=== PATIENT | female | born 1945 | race Caucasian/White ===

== ENCOUNTER 2021-06-14 12:59 | Emergency (ER) | payer MEDICARE, SELFPAY ==
[2021-06-14 13:01] VITALS: BP 154/79; PULSE 60; RESP 18; TEMP 36.6; O2SAT 98; BMI 42.0
--- NOTE | 2021-06-14 13:23 | EX.ED.GENINJ ---
HPI History of Present Illness Chief Complaint: Head Injury Narrative Narrative: 75-year-old female presenting for evaluation after a fall she sustained a week. She states she hit the top of her head on the left and she has some bruising on her face. She states she has been actually improving. Today she went for a regular visit with her doctor and he sent her into the ER because she had an episode of nausea. She denies dizziness, lightheadedness, visual complaints, chest pain, palpitations, shortness of breath, fever, chills. Patient states he had not had any nausea up until today. It is resolved. She states has been vaccinated for COVID-19 and has no symptoms of this. PFSH PFSH Allergy/AdvReac Type Severity Reaction Status Date / Time fexofenadine [From Mar] Allergy Hives Verified 06/14/21 13:05 Social History Smoking Status: Never smoker ROS ROS ED Constitutional Constitutional ED: Denies chills or fever(s) Eyes Eyes: Denies blurry vision or change in vision ENT ENT ED: Denies rhinorrhea or sore throat Cardiovascular Cardiovascular: Denies chest pain or palpitations Respiratory/Chest Respiratory/Chest: Denies cough or dyspnea Gastrointestinal Gastrointestinal: Reports nausea; Denies abdominal pain Genitourinary Genitourinary ED: Denies dysuria or hematuria Musculoskeletal Musculoskeletal: Denies arthralgias or myalgias Integumentary Denies abscess or rash Neurologic Neurologic: Denies headache(s) or weakness EXAM Physical Exam Const Vital Signs: 06/14/21 13:01 Temperature 97.9 F Temperature Source Temporal Pulse Rate 60 Respiratory Rate 18 Blood Pressure 154/79 H Blood Pressure Mean 104 Pulse Ox 98 Oxygen Delivery Method Room Air Positive well nourished General Appearance ED: NAD HEENT HEENT Narrative: Bruising over the left eye and inferior to bilateral eyes. The nasal bone is midline. Nares are patent. No nasal septal hematoma. There is a some conjunctival hemorrhage in the left eye. Eyes PERRL and EOMs intact bilaterally Cardio regular rhythm Rate: regular rate Neuro oriented x3 and CN's II-XII intact bilaterally Sensorium / Orientation: alert Psych mental status grossly normal and thought process normal Skin Skin Narrative: Bruising as described above MDM MDM MDM Narrative Medical decision making narrative: Patient presenting with bruising on her forehead as well as an episode of nausea today. She not had any symptoms after she hit her head up until today. She will experience nausea for short time. She has no focal neurologic deficits on examination her neuro exam is normal. CT of the brain is obtained and shows no acute intracranial process as interpreted by the radiologist and reviewed by myself. Patient counseled on findings. She will be discharged home in stable condition. Impression: 1. Closed head injury Radiography Diagnostic Testing: Clinical Impression(s) from Imaging Studies Brain CT 06/14/21 13:25 IMPRESSION: Chronic involutional changes of the brain. Electronically Signed: Pedro Mazariegos MD at 13:37 EST , Service support , Discharge Plan Triage Chief Complaint: Head Injury ED Provider: Angel King Dx/Rx/DC Orders Instructions: ED Head Injury (Adult) Primary Care Provider: Frank Salinas Referrals: Frank Salinas MD [Primary Care Provider] - Disposition Disposition: Home, Self Care
--- NOTE | 2021-06-14 13:25 | CT_ITS ---
STUDY: CT BRAIN WITHOUT CONTRAST REASON FOR EXAM: Female, 75 years old. Headache RADIATION DOSAGE (If Supplied By Facility): CTDIvol = ( 44.99 ) mGy, DLP = ( 829.85 ) mGycm TECHNIQUE: Transaxial CT imaging of the brain was performed without administration of intravenous contrast material. Individualized dose optimization techniques were used for this CT. COMPARISON: No relevant priors. FINDINGS: Normal soft tissue structures. There is hyperostosis frontalis internus. Normal size ventricles and extra-axial spaces for the patient''s age. Normal white matter tracts of the cerebral hemispheres. There are small punctate calcifications of the basal ganglia which are seen in the aging brain as a normal variant. Normal brainstem. Normal cerebellum. There is no intracranial hemorrhage. There are no findings of an acute ischemic infarction. Normal visualized paranasal sinuses. CT/Brain/Head without Contrast IMPRESSION: Chronic involutional changes of the brain. Electronically Signed: Pedro Mazariegos MD at 13:37 EST , Service support ,
== END 2021-06-14 14:21 | disposition home or self-care (01) ==
PROVIDERS: Emergency Provider Student in an Organized Health Care Education/Training Program; PCP Family Medicine
DX: S00.12XA Contusion of left eyelid and periocular area, initial encounter (principal); S00.83XA Contusion of other part of head, initial encounter; H11.32 Conjunctival hemorrhage, left eye; R11.0 Nausea; W19.XXXA Unspecified fall, initial encounter; Y93.9 Activity, unspecified; Y92.9 Unspecified place or not applicable
CPT/HCPCS: 70450; 99284

== ENCOUNTER 2022-12-10 12:00 | Inpatient (IN) | payer MEDICARE, SELFPAY ==
[2022-12-10] VITALS (7 sets, daily range): BP systolic 102–135; BP diastolic 58–74; PULSE 85–93; RESP 14–20; TEMP 35.9–37.7; O2SAT 93–98; BMI 37.0; BMI 37.3
--- NOTE | 2022-12-10 12:31 | EKG12_ITS ---
Test Reason : WEAKNESS Blood Pressure : / mmHG Vent. Rate : 085 BPM Atrial Rate : 085 BPM P-R Int : 132 ms QRS Dur : 090 ms QT Int : 474 ms P-R-T Axes : 065 053 041 degrees QTc Int : 564 ms Normal sinus rhythm Nonspecific ST abnormality Prolonged QT Abnormal ECG Confirmed by SILVIA TRAN, ALEAH ([id number]), film and video editor JANE BURGESS ([id number]) on 12/13/2022 9:55:48 AM Referred By: DOUG Confirmed By:THAO VEGA MD
--- NOTE | 2022-12-10 12:33 | EX.ED.DYSGE1 ---
HPI History of Present Illness Chief Complaint: Dizziness Detail of Chief Complaint: Red left extremity, subjective fever with chills and orthostatic symptoms Informant: patient Onset/Context/Timing Onset: Yesterday Context: Sudden Onset Timing: Continuous and Waxes and wanes Quality: Detailed HPI narrative Location: Left leg Current Severity: Moderate Maximum Severity: Moderate Worsened by: Infection Relieved by: Nothing Associated Symptoms Associated Symptoms: Nausea and vomiting x1 and orthostatic symptoms Narrative Narrative: Patient is a 77-year-old woman who is on no medication and has no allergies who presents with red left leg that has gotten significantly worse since yesterday with subjective fever and chills. She also reports sweats. She denies headache, visual, ocular auditory symptoms. She denies respiratory or cardiac symptoms other than orthostatic symptoms. When asked to define dizziness she describes orthostatic symptoms. She did not describe vertigo. She does report thirst and dry mouth. She also reported incontinence of urine. She states she has never had that before. Prior similar symptoms: No Recent Illness/Hospitalization: No PFSH PFSH Medical History no medical history no medical history Allergy/AdvReac Type Severity Reaction Status Date / Time fexofenadine [From Mar] Allergy Hives Verified 06/14/21 13:05 Social History (Updated 12/10/22 @ 12:[address] Nestor Vásquez MD) household members: spouse Smoking Status: Never smoker substance use type: does not use ROS ROS ED Constitutional Constitutional ED: Reports chills, fever(s), subjective and sweats; Denies weight loss Eyes Eyes: Denies blurry vision, change in vision or diplopia ENT ENT ED: Reports other Details: Detailed HPI narrative ; Denies ear pain, rhinorrhea or sore throat Cardiovascular Cardiovascular: Denies chest pain, orthopnea, palpitations, paroxysmal nocturnal dyspnea or racing heartbeat Respiratory/Chest Respiratory/Chest: Denies cough, dyspnea, dyspnea on exertion, orthopnea or paroxysmal nocturnal dyspnea Gastrointestinal Gastrointestinal: Reports nausea and vomiting; Denies abdominal pain, diarrhea or melena Genitourinary Genitourinary ED: Reports other Details: Urgency with incontinence ; Denies dysuria, hematuria or urinary frequency Musculoskeletal Musculoskeletal: Denies arthralgias, back pain, myalgias or neck pain Integumentary Reports rash Neurologic Neurologic: Reports weakness; Denies headache(s) or paresthesias Psychiatric Psychiatric: Denies anxiety or depression Endocrine Endocrinology: Denies cold intolerance or heat intolerance Hematologic/Lymphatic Hematologic/Lymphatic: Reports systems reviewed and no addt'l complaints, except as documented EXAM Physical Exam Const Vital Signs: 12/10/22 12:01 12/10/22 12:23 12/10/22 13:24 Temperature 97.8 F Temperature Source Temporal Pulse Rate 93 Respiratory Rate 15 Respiratory Effort Normal Non-Labored Respiratory Pattern Normal Blood Pressure 102/74 Blood Pressure Mean 83 Pulse Ox 97 95 Oxygen Delivery Method Room Air Room Air Positive well nourished, well developed and obese Constitutional Narrative: Patient appears ill but not toxic. General Appearance ED: well developed; Negative for cyanotic, diaphoretic or NAD Nutritional Appearance: obese HEENT Reports dry mucous membranes HEENT Narrative: Head is atraumatic normocephalic. Ears normal. Nares patent. Posterior pharynx is normal. Mouth ED: Yes dry mucous membranes Mouth: dry mucous membranes Eyes PERRL and EOMs intact bilaterally General Eye ED: Negative for pale conjunctiva or scleral icterus Neck no lymphadenopathy, supple and no JVD Chest Wall inspection of chest normal and palpation of chest normal Resp normal respiratory effort and clear to auscultation bilaterally Cardio regular rate, regular rhythm, S1 normal heart sound, S2 normal heart sound and no murmurs GI normal to inspection, nondistended, normoactive bowel sounds, non-tender, non-distended and no masses; Negative for hepatosplenomegaly Back/Spine no CVA tenderness Back/Spine Narrative: Inspection is normal. Extremity Negative for normal to inspection Extremity Narrative: Patient has cellulitis of the left leg. There are varicose veins noted. There is no asymmetry, swelling, leg vein distention, palpable cords tenderness on the distribution deep venous system. Furthermore patient has no history of VTE. Neuro oriented x3, CN's II-XII intact bilaterally and no sensory deficits noted Sensorium / Orientation: alert Motor Exam: strength 5/5 throughout Psych mental status grossly normal Skin Skin Narrative: Cellulitis of the entire left leg Sepsis Attestation Possible Source of Sepsis: Skin/soft tissue Sepsis Organ Dysfunction Criteria Present: Lactic Acid > 2 mmol/L MDM MDM MDM Narrative Medical decision making narrative: Patient clinically is dehydrated. 1 L normal saline was ordered. Patient has cellulitis of the leg. Sepsis work-up was initiated. Unasyn was ordered. Patient was informed that she will need admission to the hospital. Comprehensive metabolic panel was obtained to assess for endorgan dysfunction. CBC to assess white count differential. Lactate to assess for poor perfusion. Lab Data Attestation: I reviewed the patient's lab results. Lab results narrative: Count is with no shift. Coags are essential unremarkable. Comprehensive metabolic panel was elevated BUN/creatinine at 22 and 1.72. Last creatinine was 1. Glucose elevated 153 with a normal CO2 and anion gap. Lactate is elevated 2.7. Labs: Laboratory Results - last 24 hr 12/10/22 12/10/22 12/10/22 13:00 13:00 13:00 WBC 36.8 H* RBC 5.87 H Hgb 15.8 H Hct 50.7 H MCV 86.4 MCH 26.9 L MCHC 31.2 L RDW Std Deviation 43.2 RDW Coeff of Joya 13.5 Plt Count 147 L MPV 9.4 Immature Gran % (Auto) 1.400 H Neut % (Auto) 91.8 H Lymph % (Auto) 3.0 L [place] % (Auto) 3.3 Eos % (Auto) 0.1 Baso % (Auto) 0.4 Absolute Neuts (auto) 33.8 H Absolute Lymphs (auto) 1.10 Nucleated RBC % 0 Differential Comment SCANNED Diff Path Review October foll PT 15.7 H INR 1.3 APTT 32.8 Sodium 137 Potassium 3.5 Chloride 102 Carbon Dioxide 27.0 Anion Gap 8 BUN 22 H Creatinine 1.72 H Estim Creat Clear Calc 25.43 Est GFR (MDRD) Af Amer 37 L Est GFR (MDRD) Non-Af 31 L BUN/Creatinine Ratio 12.8 Glucose 153 H Lactic Acid Calcium 9.1 Total Bilirubin 0.70 AST 20 ALT 19 Alkaline Phosphatase 79 Total Protein 8.0 Albumin 3.2 Globulin 4.8 H Albumin/Globulin Ratio 0.7 L Urine Color Urine Clarity Urine pH Ur Specific [place] Urine Protein Urine Glucose (UA) Urine Ketones Urine Occult Blood Urine Nitrite Urine Bilirubin Urine Urobilinogen Ur Leukocyte Esterase Urine RBC Urine WBC Ur Squamous Epith Cells Urine Bacteria Hyaline Casts Urine Mucus 12/10/22 12/10/22 13:00 13:30 WBC RBC Hgb Hct MCV MCH MCHC RDW Std Deviation RDW Coeff of Joya Plt Count MPV Immature Gran % (Auto) Neut % (Auto) Lymph % (Auto) [place] % (Auto) Eos % (Auto) Baso % (Auto) Absolute Neuts (auto) Absolute Lymphs (auto) Nucleated RBC % Differential Comment Diff Path Review PT INR APTT Sodium Potassium Chloride Carbon Dioxide Anion Gap BUN Creatinine Estim Creat Clear Calc Est GFR (MDRD) Af Amer Est GFR (MDRD) Non-Af BUN/Creatinine Ratio Glucose Lactic Acid 2.7 H* Calcium Total Bilirubin AST ALT Alkaline Phosphatase Total Protein Albumin Globulin Albumin/Globulin Ratio Urine Color Yellow Urine Clarity Cloudy Urine pH 5.0 Ur Specific [place] 1.025 Urine Protein 100 H Urine Glucose (UA) Normal Urine Ketones 5 H Urine Occult Blood 50 H Urine Nitrite Negative Urine Bilirubin 1 H Urine Urobilinogen 1 H Ur Leukocyte Esterase 500 H Urine RBC 0-5 SEEN Urine WBC 10-25 SEEN Ur Squamous Epith Cells 10-25 SEEN Urine Bacteria 3+ Hyaline Casts 0-5 SEEN Urine Mucus 2+ Critical Care Time Critical Care Time: Yes Critical care time (excluding procedures): 30-74 minutes (22), Including time spent: (History, physical, documentation, independent review of laboratory results initiation of therapy), Discussing w/Patient &/or Family/Bolt Man, Discussing w/Consultants and Arranging Admission or Transfer Discharge Plan Triage Chief Complaint: Dizziness ED Provider: Nestor Vásquez Dx/Rx/DC Orders Clinical Impression: Sepsis, Acidosis, lactic, Cellulitis of leg, CEASAR (acute kidney injury) Primary Care Provider: Frank Salinas Referrals: Frank Salinas MD [Primary Care Provider] - Disposition Disposition: Acute Care Hospital [facility]
[2022-12-10 13:16] LABS: Absolute Neutrophil Count 33.8 X10^3/uL (2.0-7.7); Basophil# 0.14 X10^3/uL; Basophil% 0.4 % (0-1); Eosinophil# 0.05 X10^3/uL; Eosinophils% 0.1 % (0-5); Hematocrit 50.7 % (37-47); Hemoglobin 15.8 g/dL (12.0-15.0); Mean Corp Hgb Conc 31.2 g/dL (32-36); Mean Corpuscular Hgb 26.9 pg (27.0-32.0); Mean Corpuscular Volume 86.4 fL (81-99); Mean Platelet Vol. 9.4 fl (6.2-12.0); Monocyte# 1.21 X10^3/uL; Monocyte% 3.3 % (0-10); NRBC Flagged by Analyzer 0 % (0-5); Neutrophil # 33.76 X10^3/uL (2.7-7.7); Neutrophil % 91.8 % (47-70); POSITIVE COUNT YES; POSITIVE DIFFERENTIAL YES; Platelet Count 147 K/mm3 (150-450); RBC Distribution Width CV 13.5 % (11.6-14.6); RBC Distribution Width SD 43.2 fl (35.1-43.9); Red Blood Count 5.87 M/mm3 (4.2-5.4)
[2022-12-10 13:19] LABS: Differential Indicated SCAN CRITERIA MET; White Blood Count 36.8 K/mm3 (4.4-11.0)
[2022-12-10 13:22] LABS: International Normalized Ratio 1.3; Partial Thromboplast Time 32.8 Seconds (24.1-36.2); Prothrombin Time (Protime)PT. 15.7 SECONDS (11.7-14.9)
[2022-12-10] MEDS: 0.9% Normal Saline 1,000 ML 999 ML IV (13:26)
[2022-12-10 13:34] LABS: ALB/GLOB Ratio 0.7 RATIO (0.9-2.4); AST(SGOT) 20 U/L (15-37); Alanine Aminotransfer ALT/SGPT 19 U/L (13-56); Albumin, Serum 3.2 g/dL (3.2-5.0); Alkaline Phosphatase 79 U/L (45-117); Anion Gap 8 (5-15); BUN 22 mg/dL (7-18); BUN/Creat Ratio 12.8 RATIO (10-20); Calcium,Total 9.1 mg/dL (8.5-10.1); Chloride 102 mmol/L (98-107); Creatinine, Serum 1.72 mg/dL (0.55-1.02); EST Glomerular Filtration Rate 31 mL/min (>60); Est Glom Filt Rate - Afr Amer 37 mL/min (>60); Estimated Creatinine Clearance 25.43 ml/min; Globulin 4.8 g/dL (2.2-4.2); Glucose 153 mg/dL (74-106); Potassium 3.5 mmol/L (3.5-5.1); Sodium Level 137 mmol/L (136-145)
[2022-12-10 13:38] LABS: Differential Comment SCANNED
[2022-12-10 13:44] LABS: Lactic Acid 2.7 mmol/L (0.4-1.9)
[2022-12-10 13:47] LABS: Color, Urine Yellow (Yellow); Glucose, Dipstick Normal (Normal); Ketone-Dipstick 5 mg/dl (Negative); Leukocyte Esterase-Dipstick 500 /ul (Negative); Nitrite-Dipstick Negative (Negative); Occult Blood-Urine 50 /ul (Negative); Protein-Dipstick 100 mg/dl (Negative); Specific Gravity, Urine 1.025 (1.002-1.030); Urine Bilirubin Dipstick 1 mg/dL (Negative); Urine Clarity Cloudy (Clear); Urine Urobilinogen 1 mg/dl (Normal)
[2022-12-10 13:54] LABS: Bacteria 3+ /hpf (None Seen); Hyaline Cast 0-5 SEEN /lpf (0-5); Mucous, Urine 2+ /hpf (<or=2+); Red Blood Cells-Urine 0-5 SEEN /hpf (0-5); Squamous Epithelial Cells - UA 10-25 SEEN /hpf (5-10); White Blood Cells 10-25 SEEN /hpf (0-5)
[2022-12-10 17:09] LABS: Reflex Lactate? Y
[2022-12-10] MEDS: KCL 20MEQ in 0.9% NS 20 MEQ/1,000 ML IV.SOLN. 100 MEQ IV (17:36)
--- NOTE | 2022-12-10 17:45 | PCM.RX.CS ---
Consult Type of Consult: New start Suspected Infection: Skin/Soft tissue - Cellulitis Labs: Sodium 137 mmol/L (136-145) 12/10/22 13:00 Potassium 3.5 mmol/L (3.5-5.1) 12/10/22 13:00 Chloride 102 mmol/L (98-107) 12/10/22 13:00 Carbon Dioxide 27.0 mmol/L (21.0-32.0) 12/10/22 13:00 Anion Gap 8 (5-15) 12/10/22 13:00 BUN 22 mg/dL (7-18) H 12/10/22 13:00 Creatinine 1.72 mg/dL (0.55-1.02) H 12/10/22 13:00 Est GFR (MDRD) Af Amer 37 mL/min (>60) L 12/10/22 13:00 Est GFR (MDRD) Non-Af 31 mL/min (>60) L 12/10/22 13:00 BUN/Creatinine Ratio 12.8 RATIO (10-20) 12/10/22 13:00 Glucose 153 mg/dL (74-106) H 12/10/22 13:00 Goal Trough: 10-15 mcg/mL Pharmacy Plan for Drug Dosing: NEW START IV VANCOMYCIN Consulting Physician: Dr. Oleary Indication: Cellulitis Goal Trough: 10-15 SrCr: 1.72 mg/dL CrCl: 33.39 mL/min (AdjBW 74.8kg) Comments: 1500mg x1 dose given 172912/10/22 Vancomycin Dose: 750mg Q24H to start at 1730 12/11/22 Pending Level: Vancomycin trough @ 1700 12/13/22 Pharmacy Service will continue to monitor and adjust dosing as required. Labs to be done on [date and time ordered]: Vancomycin trough @ 1700 12/13/22
--- NOTE | 2022-12-10 18:36 | PCM.HP.STD ---
[facility] - General General Date of Admission: 12/10/22 Date of Service: 12/10/22 Chief Complaint: Swelling redness and pain involving the left lower extremity HPI Narrative TASHA MCNALLY, is a 77 F who presents swelling, redness and pain involving the left lower extremity from the foot up to just below the knee. Prior to that developed some fevers, chills, malaise and anorexia. Had a few shakes/rigors as well. Patient cannot recall any trauma to the extremity. [facility] Medical History no medical history Home Medications NK 12/10/22 [History Last Taken Unknown] Allergy/AdvReac Type Severity Reaction Status Date / Time fexofenadine [From Mar] Allergy Hives Verified 06/14/21 13:05 Social History household members: spouse Smoking Status: Never smoker substance use type: does not use ROS ROS Narrative Denies any chest pain or shortness of breath. All other systems reviewed and essentially negative as above in the body of the history. Vital Signs Vital Signs Vital Signs: 12/10/22 12:01 12/10/22 12:23 12/10/22 13:24 Temperature 36.6 C Temperature Source Temporal Pulse Rate 93 Respiratory Rate 15 Respiratory Effort Normal Non-Labored Respiratory Pattern Normal Blood Pressure 102/74 Blood Pressure Mean 83 Blood Pressure Source Blood Pressure Position Blood Pressure Location Pulse Ox 97 95 Oxygen Delivery Method Room Air Room Air 12/10/22 14:45 12/10/22 15:40 Temperature 35.9 C L 36.6 C Temperature Source Temporal Oral Pulse Rate 85 89 Respiratory Rate 14 16 Respiratory Effort Respiratory Pattern Blood Pressure 116/72 117/60 Blood Pressure Mean 86 79 Blood Pressure Source Monitor Blood Pressure Position Semi-Fowlers Blood Pressure Location Right Arm Pulse Ox 93 98 Oxygen Delivery Method Room Air Room Air Weight Weight: 101.6 kg Body Mass Index (BMI) 37.3 Physical Exam Narrative General exam. Elderly man, morbidly obese, mildly ill-appearing, anxious appearing HEENT. Oral mucosa moist, no pallor jaundice or cyanosis Neck. Neck is supple Heart. First and second sounds are normal was Lungs. Clear to auscultation. Abdomen. 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 Conscious alert and oriented x3. Cranial nerves II to XII grossly intact. Extremities. Circumferential redness, swelling tenderness involving the left lower extremity from the ankle all the way up to the upper dior Results Medical Records Data Attestation: I reviewed the patient's medical records Lab / Micro Data Attestation: I reviewed the patient's lab results. Result Diagrams: 12/10/22 13:00 12/10/22 13:00 Labs: Laboratory Results - last 24 hr 12/10/22 13:00: WBC 36.8 H*, RBC 5.87 H, Hgb 15.8 H, Hct 50.7 H, MCV 86.4, MCH 26.9 L, MCHC 31.2 L, RDW Std Deviation 43.2, RDW Coeff of Joya 13.5, Plt Count 147 L, MPV 9.4, Immature Gran % (Auto) 1.400 H, Neut % (Auto) 91.8 H, Lymph % (Auto) 3.0 L, [place] % (Auto) 3.3, Eos % (Auto) 0.1, Baso % (Auto) 0.4, Absolute Neuts (auto) 33.8 H, Absolute Lymphs (auto) 1.10, Nucleated RBC % 0, Differential Comment SCANNED, Diff Path Review October12/10/22 13:00: PT 15.7 H, INR 1.3, APTT 32.8 12/10/22 13:00: Sodium 137, Potassium 3.5, Chloride 102, Carbon Dioxide 27.0, Anion Gap 8, BUN 22 H, Creatinine 1.72 H, Estim Creat Clear Calc 25.43, Est GFR (MDRD) Af Amer 37 L, Est GFR (MDRD) Non-Af 31 L, BUN/Creatinine Ratio 12.8, Glucose 153 H, Calcium 9.1, Total Bilirubin 0.70, AST 20, ALT 19, Alkaline Phosphatase 79, Total Protein 8.0, Albumin 3.2, Globulin 4.8 H, Albumin/Globulin Ratio 0.7 L 12/10/22 13:00: Lactic Acid 2.7 H* 12/10/22 13:30: Urine Color Yellow, Urine Clarity Cloudy, Urine pH 5.0, Ur Specific [place] 1.025, Urine Protein 100 H, Urine Glucose (UA) Normal, Urine Ketones 5 H, Urine Occult Blood 50 H, Urine Nitrite Negative, Urine Bilirubin 1 H, Urine Urobilinogen 1 H, Ur Leukocyte Esterase 500 H, Urine RBC 0-5 SEEN, Urine WBC 10-25 SEEN, Ur Squamous Epith Cells 10-25 SEEN, Urine Bacteria 3+, Hyaline Casts 0-5 SEEN, Urine Mucus 2+ ABG Data Attestation: I personally reviewed and interpreted this ABG as follows: Assessment & Plan Assessment/Plan (1) Cellulitis of leg: PLAN: Plan 1. Severe sepsis. Secondary to cellulitis involving the left lower extremity. Patient received IV fluids and is on IV antibiotics. Keep on telemetry. 2. Cellulitis versus erysipelas involving the left lower extremity. Will be given IV vancomycin 1.5 g every 12 hours and Unasyn 3 g every 6 hours. Elevate left lower extremity on 3 pillows at all times when in bed. 3. Morbid obesity. Life modifications as able. 4. Acute kidney injury. Secondary to sepsis. Treat underlying sepsis. IV fluids. Charges/Coding Visit Charges Inpatient E&M: 95177 Init Hosp L3
[2022-12-10 18:43] LABS: Lactic Acid 1.9 mmol/L (0.4-1.9)
[2022-12-10] MEDS: Acetaminophen 325 MG Tablet 650 MG PO (21:30)
[2022-12-11 03:40] VITALS: BP 114/61; PULSE 82; RESP 16; TEMP 36.6; O2SAT 95
[2022-12-11 06:14] LABS: Absolute Lymphocyte Count 1.42 X10^3/uL (0.83-4.51); Absolute Neutrophil Count 24.9 X10^3/uL (2.0-7.7); Basophil# 0.05 X10^3/uL; Basophil% 0.2 % (0-1); Eosinophil# 0.15 X10^3/uL; Eosinophils% 0.5 % (0-5); Hematocrit 41.8 % (37-47); Hemoglobin 13.3 g/dL (12.0-15.0); Lymphocyte # 1.42 X10^3/ul (0.83-4.51); Mean Corp Hgb Conc 31.8 g/dL (32-36); Mean Corpuscular Hgb 27.6 pg (27.0-32.0); Mean Corpuscular Volume 86.7 fL (81-99); Mean Platelet Vol. 10.2 fl (6.2-12.0); Monocyte# 1.46 X10^3/uL; Monocyte% 5.2 % (0-10); NRBC Flagged by Analyzer 0 % (0-5); Neutrophil # 24.88 X10^3/uL (2.7-7.7); Neutrophil % 88.5 % (47-70); POSITIVE COUNT YES; POSITIVE DIFFERENTIAL YES; Platelet Count 95 K/mm3 (150-450); RBC Distribution Width CV 13.8 % (11.6-14.6); RBC Distribution Width SD 43.8 fl (35.1-43.9); Red Blood Count 4.82 M/mm3 (4.2-5.4); White Blood Count 28.1 K/mm3 (4.4-11.0)
[2022-12-11] MEDS: Acetaminophen 325 MG Tablet 650 MG PO ×3 (06:22→21:08)
[2022-12-11 06:23] LABS: Differential Indicated SCAN CRITERIA MET
[2022-12-11 06:41] LABS: Platelet Estimate MOD DEC (ADEQ)
[2022-12-11 06:56] LABS: ALB/GLOB Ratio 0.6 RATIO (0.9-2.4); AST(SGOT) 18 U/L (15-37); Alanine Aminotransfer ALT/SGPT 13 U/L (13-56); Albumin, Serum 2.3 g/dL (3.2-5.0); Alkaline Phosphatase 84 U/L (45-117); Anion Gap 4 (5-15); BUN 23 mg/dL (7-18); BUN/Creat Ratio 18.5 RATIO (10-20); Calcium,Total 7.8 mg/dL (8.5-10.1); Chloride 109 mmol/L (98-107); Creatinine, Serum 1.24 mg/dL (0.55-1.02); EST Glomerular Filtration Rate 45 mL/min (>60); Est Glom Filt Rate - Afr Amer 54 mL/min (>60); Estimated Creatinine Clearance 35.27 ml/min; Globulin 3.6 g/dL (2.2-4.2); Glucose 122 mg/dL (74-106); Potassium 3.8 mmol/L (3.5-5.1); Protein, Total 5.9 g/dL (6.4-8.2); Sodium Level 140 mmol/L (136-145)
--- NOTE | 2022-12-11 07:48 | PN.HOSP_ITS ---
Reason for Visit Reason for Visit: Diagnoses Cellulitis of unspecified part of limb (12/10/22) Subjective Subjective leg feeling better. started with malaise. Objective Data Objective Data Vital Signs: Vital Signs Temp Pulse Resp BP Pulse Ox O2 Del Method O2 Flow Rate 36.6 C 82 16 114/61 95 Nasal Cannula 2 12/11/22 03:40 12/11/22 03:40 12/11/22 03:40 12/11/22 03:40 12/11/22 03:40 12/11/22 03:40 12/11/22 03:40 Oxygen Flow Rate (L/min) 2 Oxygen Delivery Method Nasal Cannula Weight: 101.6 kg Body Mass Index (BMI) 37.3 Intake & Output: Intake and Output for Last 24 Hours 12/09/22 12/10/22 12/11/22 23:59 23:59 23:59 Intake Total 1642 / 1642 224 / 224 Balance 1642 / 1642 224 / 224 Lab / Micro Data Result Diagrams: 12/11/22 05:45 12/11/22 05:45 Labs: Laboratory Results - last 24 hr 12/10/22 13:00: WBC 36.8 H*, RBC 5.87 H, Hgb 15.8 H, Hct 50.7 H, MCV 86.4, MCH 26.9 L, MCHC 31.2 L, RDW Std Deviation 43.2, RDW Coeff of Joya 13.5, Plt Count 147 L, MPV 9.4, Immature Gran % (Auto) 1.400 H, Neut % (Auto) 91.8 H, Lymph % (Auto) 3.0 L, [place] % (Auto) 3.3, Eos % (Auto) 0.1, Baso % (Auto) 0.4, Absolute Neuts (auto) 33.8 H, Absolute Lymphs (auto) 1.10, Nucleated RBC % 0, Differential Comment SCANNED, Diff Path Review October12/10/22 13:00: PT 15.7 H, INR 1.3, APTT 32.8 12/10/22 13:00: Sodium 137, Potassium 3.5, Chloride 102, Carbon Dioxide 27.0, Anion Gap 8, BUN 22 H, Creatinine 1.72 H, Estim Creat Clear Calc 25.43, Est GFR (MDRD) Af Amer 37 L, Est GFR (MDRD) Non-Af 31 L, BUN/Creatinine Ratio 12.8, Glucose 153 H, Calcium 9.1, Total Bilirubin 0.70, AST 20, ALT 19, Alkaline Phosphatase 79, Total Protein 8.0, Albumin 3.2, Globulin 4.8 H, Albumin/Globulin Ratio 0.7 L 12/10/22 13:00: Lactic Acid 2.7 H* 12/10/22 13:30: Urine Color Yellow, Urine Clarity Cloudy, Urine pH 5.0, Ur Specific [place] 1.025, Urine Protein 100 H, Urine Glucose (UA) Normal, Urine Ketones 5 H, Urine Occult Blood 50 H, Urine Nitrite Negative, Urine Bilirubin 1 H, Urine Urobilinogen 1 H, Ur Leukocyte Esterase 500 H, Urine RBC 0-5 SEEN, Urine WBC 10-25 SEEN, Ur Squamous Epith Cells 10-25 SEEN, Urine Bacteria 3+, Hyaline Casts 0-5 SEEN, Urine Mucus 2+ 12/10/22 18:10: Lactic Acid 1.9 12/11/22 05:45: WBC 28.1 H, RBC 4.82, Hgb 13.3, Hct 41.8, MCV 86.7, MCH 27.6, MCHC 31.8 L, RDW Std Deviation 43.8, RDW Coeff of Joya 13.8, Plt Count 95 L, MPV 10.2, Immature Gran % (Auto) 0.600, Neut % (Auto) 88.5 H, Lymph % (Auto) 5.0 L, [place] % (Auto) 5.2, Eos % (Auto) 0.5, Baso % (Auto) 0.2, Absolute Neuts (auto) 24.9 H, Absolute Lymphs (auto) 1.42, Nucleated RBC % 0, Platelet Estimate MOD 12/11/22 05:45: Sodium 140, Potassium 3.8, Chloride 109 H, Carbon Dioxide 27.0, Anion Gap 4 L, BUN 23 H, Creatinine 1.24 H, Estim Creat Clear Calc 35.27, Est GFR (MDRD) Af Amer 54 L, Est GFR (MDRD) Non-Af 45 L, BUN/Creatinine Ratio 18.5, Glucose 122 H, Calcium 7.8 L, Total Bilirubin 0.60, AST 18, ALT 13, Alkaline Phosphatase 84, Total Protein 5.9 L, Albumin 2.3 L, Globulin 3.6, Albumin/Globulin Ratio 0.6 L Physical Exam Const alert and no apparent distress Skin Skin Narrative: erythema on LLE, slightly withdrawn from demarcation. Assessment & Plan Assessment/Plan (1) Sepsis: PLAN: Resolved Admission: SIRS 2/4 (WBC 36.8, HR 93) Lactic acid 2.7 on admission. Since resolved. 2/2 cellulitis received 1 liter NS (2) Cellulitis of leg: PLAN: on Unasyn and vanc Elevate left lower extremity on 3 pillows at all times when in bed. Continue IV abx for another 24hours. (3) CEASAR (acute kidney injury): PLAN: Secondary to sepsis. Treat underlying sepsis. IV fluids. Improved PLAN: Plan Chronic conditions: * Morbid obesity. Life modifications as able. BMI 37.3 kg/m? VTE prophylaxis: LMWH Charges/Coding Visit Charges Inpatient E&M: 46012 Subs Hosp L1
[2022-12-11] MEDS: KCL 20MEQ in 0.9% NS 20 MEQ/1,000 ML IV.SOLN. 100 MEQ IV ×3 (07:54→23:47)
[2022-12-11 07:59] VITALS: BP 124/65; PULSE 77; RESP 16; TEMP 36.6; O2SAT 95
--- NOTE | 2022-12-11 10:09 | PCM.RX.CS ---
Consult Pharmacy has been consulted to manage selected antiobiotic: Vancomycin Type of Consult: Follow-up Suspected Infection: Skin/Soft tissue Labs: Sodium 140 mmol/L (136-145) 12/11/22 05:45 Potassium 3.8 mmol/L (3.5-5.1) 12/11/22 05:45 Chloride 109 mmol/L (98-107) H 12/11/22 05:45 Carbon Dioxide 27.0 mmol/L (21.0-32.0) 12/11/22 05:45 Anion Gap 4 (5-15) L 12/11/22 05:45 BUN 23 mg/dL (7-18) H 12/11/22 05:45 Creatinine 1.24 mg/dL (0.55-1.02) H 12/11/22 05:45 Est GFR (MDRD) Af Amer 54 mL/min (>60) L 12/11/22 05:45 Est GFR (MDRD) Non-Af 45 mL/min (>60) L 12/11/22 05:45 BUN/Creatinine Ratio 18.5 RATIO (10-20) 12/11/22 05:45 Glucose 122 mg/dL (74-106) H 12/11/22 05:45 Goal Trough: 10-15 mcg/mL Pharmacy Plan for Drug Dosing: Current Vancomycin Dose: 750MG Q24H Number of Doses Received: 1500MG LOADING DOSE X1 Current Renal Function: SCR 1.24 MG/DL, CRCL 46.3 ML/MIN (USING ADJ BW) Renal Function Trend: IMPROVED Lab/Micro: BLOOD AND URINE CX PENDING Any Change in Vanc Plan: YES, CRCL IMPROVED TO 46.3 ML/MIN, CHANGED DOSE TO 1500MG Q24H PER POLICY. TROUGH CHANGED TO PRIOR TO 3RD DOSE. Pending Level: 12/12/22 @ 1700 Pharmacy Service will continue to monitor and adjust dosing as required.
--- NOTE | 2022-12-11 11:45 | CASEMGMT ---
RN CM Face to Face with patient for initial transition planning/care coordination assessment. RN CM introduced self and role at [facility]. Patient sitting in chair, alert and oriented. Patient willing to participate in assessment and is able to answer all questions appropriately. Care providers, pharmacy, and demographics verified. Patient wishes to discharge home, denies need for home health at this time. Patient states she has no further needs or concerns at this time. CM to follow for discharge planning needs that may arise. PCP: Rita Specialists: none Preferred Pharmacy: [facility] Insurance: [facility] Prescription Benefit: yes Living Will/HPOA: yes, Mario Roberson LNOK: Living Arrangements: Patient lives with and cares for 2 granddaughters 6&7yos in a 2 story home. Patient states she is independent and able to ambulate stairs. Transportation: self, DME/HHC: Patient has built in shower chair and rollator. No previous HHC or SNF. Disposition Plan: Patient to discharge home with family support and follow-up plans in place. Taina HELMS, RN, CM
[2022-12-11 12:32] LABS: Pathologist Review Reviewed
[2022-12-11 14:00] VITALS: BP 146/79; PULSE 76; RESP 16; TEMP 36.4; O2SAT 95; O2SAT 96
--- NOTE | 2022-12-11 16:07 | CHAPLAIN ---
Type of Pastoral Visit _x_ Initial Visit ___ Follow-up Visit ___ On-call Visit ___ General Patient Visit ___ Spiritual Assessment ___ Family Conference ___ Bereavement ___ Rapid Response ___ Code Blue ___ Other (describe below) Pastoral Care Referral From _x__ Patient ___ Family ___ Nurse ___ Physician ___ Communications Equipment Supervisor ___ Unified Communications Engineer ___ Other (describe below) Sacrament/Intervention _x__ Active listening ___ Anointing ___ Buddhism ___ Bereavement ___ Communion ___ Geeta exploration ___ _x__ Life review _x__ Prayer ___ Reconciliation ___ Sacrament of Sick ___ Supportive presence ___ Wedding ___ Other (describe below) Pastoral Comments patient is welcoming; pt is using humor to get through her discomfort; pt is talkative about family and how she was encouraged to come to ED; pt is member of a local bahai and has support; pt welcomes presence and prayer
[2022-12-11 20:09] VITALS: O2SAT 97
[2022-12-11 20:15] VITALS: BP 145/78; PULSE 88; RESP 16; TEMP 37.1; O2SAT 94
[2022-12-12] VITALS (8 sets, daily range): BP systolic 138–167; BP diastolic 67–89; PULSE 76–83; RESP 16–18; TEMP 36.6–37; O2SAT 93–96
[2022-12-12] MEDS: 0.9% Saline Lock 10 ML Syringe IV ×3 (00:58→22:58)
[2022-12-12 05:39] LABS: Absolute Lymphocyte Count 1.33 X10^3/uL (0.83-4.51); Basophil# 0.04 X10^3/uL; Basophil% 0.2 % (0-1); Eosinophil# 0.08 X10^3/uL; Eosinophils% 0.4 % (0-5); Hematocrit 41.1 % (37-47); Hemoglobin 13.2 g/dL (12.0-15.0); Lymphocyte # 1.33 X10^3/ul (0.83-4.51); Lymphocyte % 5.9 % (19-41); Mean Corp Hgb Conc 32.1 g/dL (32-36); Mean Corpuscular Hgb 27.8 pg (27.0-32.0); Mean Corpuscular Volume 86.5 fL (81-99); Mean Platelet Vol. 10.9 fl (6.2-12.0); Monocyte# 0.99 X10^3/uL; Monocyte% 4.4 % (0-10); NRBC Flagged by Analyzer 0 % (0-5); Neutrophil # 20.04 X10^3/uL (2.7-7.7); Neutrophil % 88.3 % (47-70); POSITIVE COUNT YES; POSITIVE DIFFERENTIAL YES; Platelet Count 91 K/mm3 (150-450); RBC Distribution Width CV 13.7 % (11.6-14.6); RBC Distribution Width SD 43.8 fl (35.1-43.9); Red Blood Count 4.75 M/mm3 (4.2-5.4); White Blood Count 22.7 K/mm3 (4.4-11.0)
[2022-12-12] MEDS: Enoxaparin 40 MG/0.4 ML Syringe SC (06:04)
[2022-12-12 06:13] LABS: Anion Gap 5 (5-15); BUN 16 mg/dL (7-18); BUN/Creat Ratio 16.6 RATIO (10-20); Calcium,Total 8.1 mg/dL (8.5-10.1); Chloride 111 mmol/L (98-107); Creatinine, Serum 0.96 mg/dL (0.55-1.02); EST Glomerular Filtration Rate 60 mL/min (>60); Est Glom Filt Rate - Afr Amer 73 mL/min (>60); Estimated Creatinine Clearance 45.56 ml/min; Glucose 119 mg/dL (74-106); Potassium 3.7 mmol/L (3.5-5.1); Sodium Level 140 mmol/L (136-145)
[2022-12-12 06:18] LABS: Differential Indicated SCAN CRITERIA MET
[2022-12-12 06:38] LABS: Differential Comment SCANNED; Platelet Estimate MOD DEC (ADEQ)
--- NOTE | 2022-12-12 07:38 | PCM.PN.HOSP ---
Reason for Visit Reason for Visit: Diagnoses Sepsis, unspecified organism (12/10/22) Cellulitis of unspecified part of limb (12/10/22) Acute kidney failure, unspecified (12/10/22) Subjective Subjective Still with LLE redness--no change from yesterday. Objective Data Objective Data Vital Signs: Vital Signs Temp Pulse Resp BP Pulse Ox O2 Del Method O2 Flow Rate 37.0 C 82 16 153/67 H 93 Room Air 2 12/12/22 03:31 12/12/22 03:31 12/12/22 03:31 12/12/22 06:12 12/12/22 03:39 12/12/22 03:39 12/11/22 10:00 Oxygen Flow Rate (L/min) 2 Oxygen Delivery Method Room Air Weight: 101.6 kg Body Mass Index (BMI) 37.3 Intake & Output: Intake and Output for Last 24 Hours 12/10/22 12/11/22 12/12/22 23:59 23:59 23:59 Intake Total 1642 / 1642 4278 / 4278 284 / 284 Balance 1642 / 1642 4278 / 4278 284 / 284 Lab / Micro Data Result Diagrams: 12/12/22 05:08 12/12/22 05:08 Labs: Laboratory Results - last 24 hr 12/10/22 13:00: Diff Path Review Reviewed 12/12/22 05:08: WBC 22.7 H, RBC 4.75, Hgb 13.2, Hct 41.1, MCV 86.5, MCH 27.8, MCHC 32.1, RDW Std Deviation 43.8, RDW Coeff of Joya 13.7, Plt Count 91 L, MPV 10.9, Immature Gran % (Auto) 0.800, Neut % (Auto) 88.3 H, Lymph % (Auto) 5.9 L, [place] % (Auto) 4.4, Eos % (Auto) 0.4, Baso % (Auto) 0.2, Absolute Neuts (auto) 20.0 H, Absolute Lymphs (auto) 1.33, Nucleated RBC % 0, Differential Comment SCANNED, Platelet Estimate MOD DEC 12/12/22 05:08: Sodium 140, Potassium 3.7, Chloride 111 H, Carbon Dioxide 24.0, Anion Gap 5, BUN 16, Creatinine 0.96, Estim Creat Clear Calc 45.56, Est GFR (MDRD) Af Amer 73, Est GFR (MDRD) Non-Af 60, BUN/Creatinine Ratio 16.6, Glucose 119 H, Calcium 8.1 L Micro: Microbiology 12/10/22 13:30 Urine, Clean Catch Urine Culture - Preliminary Streptococcus group A Physical Exam Const alert and no apparent distress Constitutional Narrative: up in chair. afebrile. Extremity Extremity Narrative: edema in LLE. Skin Skin Narrative: marked erythema LLE no change from 12/11. No induration. No fluctuance. Neuro moves all extremities Sensorium / Orientation: awake and alert Psych affect normal Assessment & Plan Assessment/Plan (1) Sepsis: PLAN: Resolved Admission: SIRS 2/4 (WBC 36.8, HR 93) Lactic acid 2.7 on admission. Since resolved. 2/ cellulitis received 1 liter NS Urine culture showing group A strep. Unclear that is actual true urinary tract infection or if it is related with underlying cellulitis. No evidence of any bacteremia just yet. I will change antibiotics to just vancomycin for now (2) Cellulitis of leg: PLAN: No significant change from 12/11 vanc Elevate left lower extremity (3) CEASAR (acute kidney injury): PLAN: Secondary to sepsis. Treat underlying sepsis. IV fluids. Improved PLAN: Plan Chronic conditions: Morbid obesity. Life modifications as able. BMI 37.3 kg/m? VTE prophylaxis: LMWH Charges/Coding Visit Charges Inpatient E&M: 78077 Subs Hosp L2
[2022-12-12] MEDS: KCL 20MEQ in 0.9% NS 20 MEQ/1,000 ML IV.SOLN. 100 MEQ IV ×2 (11:38→22:50)
[2022-12-12 18:35] LABS: Vancomycin, Trough Level 8.7 ug/mL (5.0-15.0)
--- NOTE | 2022-12-12 19:39 | PHA.PHARE_ITS ---
Consult Pharmacy has been consulted to manage selected antiobiotic: Vancomycin Type of Consult: Follow-up Suspected Infection: Skin/Soft tissue Prior Doses of Antibiotics Received/Current Regimen: 1500MG IV Q24H Labs: Sodium 140 mmol/L (136-145) 12/12/22 05:08 Potassium 3.7 mmol/L (3.5-5.1) 12/12/22 05:08 Chloride 111 mmol/L (98-107) H 12/12/22 05:08 Carbon Dioxide 24.0 mmol/L (21.0-32.0) 12/12/22 05:08 Anion Gap 5 (5-15) 12/12/22 05:08 BUN 16 mg/dL (7-18) 12/12/22 05:08 Creatinine 0.96 mg/dL (0.55-1.02) 12/12/22 05:08 Est GFR (MDRD) Af Amer 73 mL/min (>60) 12/12/22 05:08 Est GFR (MDRD) Non-Af 60 mL/min (>60) 12/12/22 05:08 BUN/Creatinine Ratio 16.6 RATIO (10-20) 12/12/22 05:08 Glucose 119 mg/dL (74-106) H 12/12/22 05:08 Vancomycin Trough 8.7 ug/mL (5.0-15.0) 12/12/22 17:00 Microbiology: Microbiology 12/10/22 13:10 Blood Culture (Wb) - Anticubital Right Blood Culture - Pre liminary No growth in 48 hours. 12/10/22 13:00 Blood Culture (Wb) - Anticubital Left Blood Culture - Preliminary No growth in 48 hours. 12/10/22 13:30 Urine, Clean Catch Urine Culture - Final Streptococcus group A Weight used for dosin.6 kg Estimated Creatinine Clearance: 75 ml/min Goal Trough: 10-15 mcg/mL Pharmacy Plan for Drug Dosing: Trough today 8.7 ~22.5 hrs post dose. Goal 10-15 mcg/ml. Cr improved at 0.96 with CrCl ~60ml/min using adj. BW 74.6kg. Will change dose to 1000mg iv q12h. New trough ordered for before 4th dose. Pharmacy Service will continue to monitor and adjust dosing as required. Follow-Up Labs: Trough Vancomycin - 12.14.22 @4933 befoe 1800 dose
[2022-12-12] MEDS: Acetaminophen 325 MG Tablet 650 MG PO (22:57)
[2022-12-13 00:06] VITALS: BP 158/84
[2022-12-13 03:04] VITALS: O2SAT 93
[2022-12-13 03:06] VITALS: BP 145/79; PULSE 74; RESP 16; TEMP 36.9; O2SAT 92
[2022-12-13] MEDS: Enoxaparin 40 MG/0.4 ML Syringe SC (05:26)
[2022-12-13] MEDS: Vancomycin IV 1,000 MG/200 ML BAG 200 MG IV (05:43)
--- NOTE | 2022-12-13 08:01 | PN.HOSP_ITS ---
Reason for Visit Reason for Visit: Diagnoses Sepsis, unspecified organism (12/10/22) Cellulitis of unspecified part of limb (12/10/22) Acute kidney failure, unspecified (12/10/22) Subjective Subjective Still swelling in her left lower extremity. Objective Data Objective Data Vital Signs: Vital Signs Temp Pulse Resp BP Pulse Ox O2 Del Method O2 Flow Rate 36.9 C 74 16 145/79 H 92 Room Air 2 12/13/22 03:06 12/13/22 03:06 12/13/22 03:06 12/13/22 03:06 12/13/22 03:06 12/13/22 03:06 12/11/22 10:00 Oxygen Flow Rate (L/min) 2 Oxygen Delivery Method Room Air Weight: 101.6 kg Body Mass Index (BMI) 37.3 Intake & Output: Intake and Output for Last 24 Hours 12/11/22 12/12/22 12/13/22 23:59 23:59 23:59 Intake Total 4278 / 4278 3824 / 3824 320 / 320 Balance 4278 / 4278 3824 / 3824 320 / 320 Lab / Micro Data Result Diagrams: 12/12/22 05:08 12/12/22 05:08 Labs: Laboratory Results - last 24 hr 12/12/22 17:00: Vancomycin Trough 8.7 Micro: Microbiology 12/10/22 13:10 Blood Culture (Wb) - Anticubital Right Blood Culture - Preliminary No growth in 48 hours. 12/10/22 13:00 Blood Culture (Wb) - Anticubital Left Blood Culture - Preliminary No growth in 48 hours. 12/10/22 13:30 Urine, Clean Catch Urine Culture - Final Streptococcus group A Physical Exam Const Constitutional Narrative: Up in chair. Nontoxic-appearing. Extremity Extremity Narrative: Left lower extremity edema compared to the right. Erythema overall is improved but still nearly confluence in the left lower extremity. Assessment & Plan Assessment/Plan (1) Sepsis: PLAN: Resolved Admission: SIRS 2/4 (WBC 36.8, HR 93) Lactic acid 2.7 on admission. Since resolved. 2/2 cellulitis received 1 liter NS Urine culture showing group A strep. Unclear that is actual true urinary tract infection or if it is related with underlying cellulitis. No evidence of any bacteremia just yet. I will change antibiotics to just vancomycin for now (2) Cellulitis of leg: PLAN: No significant change from 12/11 vanc Elevate left lower extremity Duplex performed preliminary read noted a nonvascular mass in the popliteal fossa. We will check a CAT scan. (3) CEASAR (acute kidney injury): PLAN: Resolved Secondary to sepsis. Treat underlying sepsis. IV fluids. Improved PLAN: Plan Chronic conditions: * Morbid obesity. Life modifications as able. BMI 37.3 kg/m? VTE prophylaxis: LMWH
[2022-12-13] MEDS: KCL 20MEQ in 0.9% NS 20 MEQ/1,000 ML IV.SOLN. 100 MEQ IV ×2 (08:33→17:15)
[2022-12-13 09:00] VITALS: BP 155/77; PULSE 76; RESP 18; TEMP 36.7; O2SAT 96
--- NOTE | 2022-12-13 11:36 | VDLE_ITS ---
Reason For Study: Left leg swelling RIGHT LEFT CFV is compressible, spontaneous, phasic, GSV is normal. competent and demonstrates normal CFV is compressible, spontaneous, phasic, augmentation. competent, and demonstrates normal Procedure augmentation. This is a venous duplex using B-mode, color FV is compressible, spontaneous, phasic, flow and spectral Doppler. competent and demonstrates normal Exam performed portable in patient room. augmentation. A preliminary report was called and/or faxed POP V is compressible, spontaneous, phasic, to Harry TANNER. competent and demonstrates normal augmentation. T/P Trunk is compressible. PTV is compressible. LT PerV is compressible. Nonvascularized structure noted in the left popliteal fosssa that measures 1.62 x 3.41 cm. VL/Venous Duplex US, Unilateral Interpretation Summary There is no evidence of left lower extremity deep vein thrombosis. Left great s aphenous vein appears patent and compressible segmentally. Non-vascular cystic left popliteal structu re measuring 1.62 x 3.41 cm consistent with a Miles's cyst. Clinical correlation would be appropria te. Normal flow patterns right common femoral vein Ordering Physician: Angel Montano Referring Physician: Frank Salinas Performed By: Taina Zuleta RVT
--- NOTE | 2022-12-13 15:03 | CT_ITS ---
INDICATION: Left leg cellulitis EXAMINATION: CT BONE - CT Lower Extremity W/ Contrast Injection TECHNIQUE: Helically acquired images were obtained of the left lower extremity. 2-D reformats were performed by the technologist. A radiation dose optimization technique was used for this scan. IV Contrast dosage and agent: 95 mL Isovue 300 COMPARISON: None. FINDINGS: SOFT TISSUES: Prominent Miles''s cyst. Diffuse subcutaneous soft tissue swelling increases from superior to inferior. Mild skin thickening. Bilateral lower leg skin defect. No drainable fluid collection. No radiopaque foreign body. The partially visualized SFA, popliteal artery, and three-vessel runoff appear normal. BONES/JOINTS: No acute fracture or subluxation. Normal alignment. Tricompartmental knee DJD. No sclerotic or destructive changes. CT/Extremity Lower WITH Contrast IMPRESSION: 1. Diffuse subcutaneous cellulitis without finding drainable fluid collection. 2. Miles''s cyst. Electronically Signed: Babatunde Silva MD at 21:09 EDT ,
[2022-12-13 15:45] VITALS: BP 151/85; PULSE 74; RESP 14; TEMP 36.7; O2SAT 96
[2022-12-13 22:10] VITALS: BP 150/79; PULSE 76; RESP 18; TEMP 37.2; O2SAT 95
[2022-12-14] MEDS: KCL 20MEQ in 0.9% NS 20 MEQ/1,000 ML IV.SOLN. 100 MEQ IV ×2 (04:57→18:18)
[2022-12-14 05:00] VITALS: BP 171/88; PULSE 75; RESP 18; TEMP 37.3; O2SAT 95
[2022-12-14] MEDS: Enoxaparin 40 MG/0.4 ML Syringe SC (05:29)
[2022-12-14 07:05] LABS: Absolute Lymphocyte Count 2.09 X10^3/uL (0.83-4.51); Absolute Neutrophil Count 9.8 X10^3/uL (2.0-7.7); Basophil# 0.12 X10^3/uL; Basophil% 0.8 % (0-1); Eosinophils% 2.1 % (0-5); Hematocrit 40.2 % (37-47); Hemoglobin 12.6 g/dL (12.0-15.0); Lymphocyte # 2.09 X10^3/ul (0.83-4.51); Lymphocyte % 14.7 % (19-41); Mean Corp Hgb Conc 31.3 g/dL (32-36); Mean Corpuscular Hgb 27.1 pg (27.0-32.0); Mean Corpuscular Volume 86.5 fL (81-99); Mean Platelet Vol. 10.7 fl (6.2-12.0); Monocyte% 9.8 % (0-10); NRBC Flagged by Analyzer 0 % (0-5); Neutrophil # 9.77 X10^3/uL (2.7-7.7); Neutrophil % 68.7 % (47-70); Platelet Count 142 K/mm3 (150-450); RBC Distribution Width CV 13.7 % (11.6-14.6); RBC Distribution Width SD 42.6 fl (35.1-43.9); Red Blood Count 4.65 M/mm3 (4.2-5.4); White Blood Count 14.2 K/mm3 (4.4-11.0)
[2022-12-14 07:32] LABS: Anion Gap 5 (5-15); BUN 11 mg/dL (7-18); BUN/Creat Ratio 11.2 RATIO (10-20); Calcium,Total 8.2 mg/dL (8.5-10.1); Chloride 110 mmol/L (98-107); Creatinine, Serum 0.98 mg/dL (0.55-1.02); EST Glomerular Filtration Rate 59 mL/min (>60); Est Glom Filt Rate - Afr Amer 71 mL/min (>60); Estimated Creatinine Clearance 44.63 ml/min; Glucose 114 mg/dL (74-106); Potassium 4.2 mmol/L (3.5-5.1); Sodium Level 140 mmol/L (136-145)
--- NOTE | 2022-12-14 07:51 | PN.HOSP_ITS ---
Reason for Visit Reason for Visit: Diagnoses Sepsis, unspecified organism (12/10/22) Cellulitis of unspecified part of limb (12/10/22) Acute kidney failure, unspecified (12/10/22) Subjective Subjective Follow-up for left lower extremity cellulitis Objective Data Objective Data Vital Signs: Vital Signs Temp Pulse Resp BP Pulse Ox O2 Del Method O2 Flow Rate 99.1 F 75 18 171/88 H 95 Room Air 2 12/14/22 05:00 12/14/22 05:00 12/14/22 05:00 12/14/22 05:00 12/14/22 05:00 12/14/22 05:00 12/11/22 10:00 Oxygen Flow Rate (L/min) 2 Oxygen Delivery Method Room Air Weight: 223 lb 15.834 oz Body Mass Index (BMI) 37.3 Intake & Output: Intake and Output for Last 24 Hours 12/12/22 12/13/22 12/14/22 23:59 23:59 23:59 Intake Total 3824 / 3824 2385.67 / 2385.67 1224 / 1224 Balance 3824 / 3824 2385.67 / 2385.67 1224 / 1224 Lab / Micro Data Result Diagrams: 12/14/22 06:47 12/14/22 06:47 Labs: Laboratory Results - last 24 hr 12/14/22 06:47: WBC 14.2 H, RBC 4.65, Hgb 12.6, Hct 40.2, MCV 86.5, MCH 27.1, MCHC 31.3 L, RDW Std Deviation 42.6, RDW Coeff of Joya 13.7, Plt Count 142 L, MPV 10.7, Immature Gran % (Auto) 3.900 H, Neut % (Auto) 68.7, Lymph % (Auto) 14.7 L, [place] % (Auto) 9.8, Eos % (Auto) 2.1, Baso % (Auto) 0.8, Absolute Neuts (auto) 9.8 H, Absolute Lymphs (auto) 2.09, Nucleated RBC % 0 12/14/22 06:47: Sodium 140, Potassium 4.2, Chloride 110 H, Carbon Dioxide 25.0, Anion Gap 5, BUN 11, Creatinine 0.98, Estim Creat Clear Calc 44.63, Est GFR (MDRD) Af Amer 71, Est GFR (MDRD) Non-Af 59 L, BUN/Creatinine Ratio 11.2, Glucose 114 H, Calcium 8.2 L Micro: Microbiology 12/10/22 13:10 Blood Culture (Wb) - Anticubital Right Blood Culture - Preliminary No growth in 48 hours. 12/10/22 13:00 Blood Culture (Wb) - Anticubital Left Blood Culture - Preliminary No growth in 48 hours. 12/10/22 13:30 Urine, Clean Catch Urine Culture - Final Streptococcus group A Radiography Diagnostic Testing: Radiology Impression Venous Doppler Study 12/13/22 11:36 Interpretation Summary There is no evidence of left lower extremity deep vein thrombosis. Left great saphenous vein appears patent and compressible segmentally. Non-vascular cystic left popliteal structure measuring 1.62 x 3.41 cm consistent with a Miles's cyst. Clinical correlation would be appropriate. Normal flow patterns right common femoral vein Ordering Physician: Angel Montano Referring Physician: Frank Salinas Performed By: Taina Zuleta, T Lower Extremity CT 12/13/22 15:03 IMPRESSION: 1. Diffuse subcutaneous cellulitis without finding drainable fluid collection. 2. Miles''s cyst. 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 Cellulitis is gradually getting better improving proximally to distally. No fever. Blood pressure was high 185/82. Physical exam General: Alert, Oriented x3, Cooperative HEENT: Atraumatic, PERRLA, EOMI, Normocephalic Oral: Fine oral/lingual superficial ulcers/sores. Oral mucosa moist. Neck: Supple, No JVD, Negative Carotid Bruits Lungs: Air entry diminished in bilateral lung bases. No crepitation/rhonchi Cardiovascular: Regular rate, Regular Rhythm, Normal S1, Normal S2, No murmurs Abdomen: Bowel Sounds Present, Soft, Non Tender, Non-Distended : No renal angle tenderness. No suprapubic tenderness. Extremities: No edema, Capillary Refill Less than 3 Seconds Skin/subcutaneous tissue: Circumferential redness, induration, swelling below left knee, improving proximally. He still has tenderness over left one third of dior. No open ulcer or seepage of fluid. Musculoskeletal: No Tenderness to Palpation of Joints or Extremities. ROM restricted. Left popliteal Miles's cyst, chronic. Neurological: Cranial nerves II-XII grossly intact, DTR 2+/4 and Symmetrical, Neuro grossly intact Psych/Mental Status: Flat affect. Assessment & Plan Assessment/Plan (1) Sepsis: PLAN: Resolved Admission: SIRS 2/4 (WBC 36.8, HR 93) Lactic acid 2.7 on admission. Since resolved. 2/2 cellulitis received 1 liter NS Urine culture showing group A strep. Unclear that is actual true urinary tract infection or if it is related with underlying cellulitis. No evidence of any bacteremia just yet. Patient is on IV Unasyn. Patient was on vancomycin and discontinued as blood culture is negative for more than 48 hours. (2) Cellulitis of leg: PLAN: Slight improvement over proximal left leg. Elevate left lower extremity Duplex performed preliminary read noted a nonvascular mass in the popliteal laine a. CT showed Miles's cyst and she had for more than 10 years. No acute issues with Miles's cyst in the past. (3) CEASAR (acute kidney injury): PLAN: Resolved Secondary to sepsis. Treat underlying sepsis. IV fluids. Improved PLAN: Plan Chronic conditions: * Morbid obesity. Life modifications as able. BMI 37.3 kg/m?. VTE prophylaxis: LMWH Charges/Coding Visit Charges Inpatient E&M: 82447 Subs Hosp L2
[2022-12-14 09:08] VITALS: BP 185/82; PULSE 77; RESP 16; TEMP 36.4; O2SAT 96
[2022-12-14 10:30] VITALS: BP 154/73; PULSE 70
[2022-12-14 15:32] VITALS: BP 162/86; PULSE 73; RESP 16; TEMP 36.9; O2SAT 96
[2022-12-14 18:10] LABS: Vancomycin, Trough Level 6.6 ug/mL (5.0-15.0)
[2022-12-14 21:42] VITALS: BP 162/83; PULSE 84; RESP 17; TEMP 36.8; O2SAT 94
[2022-12-15 03:07] VITALS: BP 167/88; PULSE 86; RESP 18; TEMP 36.8; O2SAT 94
[2022-12-15] MEDS: Enoxaparin 40 MG/0.4 ML Syringe SC (05:37)
[2022-12-15] MEDS: KCL 20MEQ in 0.9% NS 20 MEQ/1,000 ML IV.SOLN. 100 MEQ IV (06:33)
[2022-12-15 08:05] VITALS: BP 172/89; PULSE 71; RESP 16; TEMP 36.7; O2SAT 94
--- NOTE | 2022-12-15 09:23 | PN.HOSP_ITS ---
Reason for Visit Reason for Visit: Diagnoses Sepsis, unspecified organism (12/10/22) Cellulitis of unspecified part of limb (12/10/22) Acute kidney failure, unspecified (12/10/22) Subjective Subjective Follow-up for cellulitis. Objective Data Objective Data Vital Signs: Vital Signs Temp Pulse Resp BP Pulse Ox O2 Del Method O2 Flow Rate 98.0 F 71 16 172/89 H 94 Room Air 2 12/15/22 08:05 12/15/22 08:05 12/15/22 08:05 12/15/22 08:05 12/15/22 08:05 12/15/22 08:40 12/11/22 10:00 Oxygen Flow Rate (L/min) 2 Oxygen Delivery Method Room Air Weight: 223 lb 15.834 oz Body Mass Index (BMI) 37.3 Intake & Output: Intake and Output for Last 24 Hours 12/13/22 12/14/22 12/15/22 23:59 23:59 23:59 Intake Total 2385.67 / 2385.67 2848 / 2998 1624.00 / 1624.00 Balance 2385.67 / 2385.67 2848 / 2998 1624.00 / 1624.00 Lab / Micro Data Result Diagrams: 12/14/22 06:47 12/14/22 06:47 Labs: Laboratory Results - last 24 hr 12/14/22 17:24: Vancomycin Trough 6.6 Micro: Microbiology 12/10/22 13:10 Blood Culture (Wb) - Anticubital Right Blood Culture - Preliminary No growth in 48 hours. 12/10/22 13:00 Blood Culture (Wb) - Anticubital Left Blood Culture - Preliminary No growth in 48 hours. 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 Cellulitis is gradually getting better improving proximally to distally. Patient has seepage from the posterior aspect of left leg along with superficial ulceration and blisters No fever. Blood pressure was high 185/82. Physical exam General: Alert, Oriented x3, Cooperative HEENT: Atraumatic, PERRLA, EOMI, Normocephalic Oral: Cold sore on the lips. Fine oral/lingual superficial ulcers/sores. Oral mucosa moist. Neck: Supple, No JVD, Negative Carotid Bruits Lungs: Air entry diminished in bilateral lung bases. No crepitation/rhonchi Cardiovascular: Regular rate, Regular Rhythm, Normal S1, Normal S2, No murmurs Abdomen: Bowel Sounds Present, Soft, Non Tender, Non-Distended : No renal angle tenderness. No suprapubic tenderness. Extremities: No edema, Capillary Refill Less than 3 Seconds Skin/subcutaneous tissue: Circumferential redness, induration, swelling below left knee, improving proximally. He still has tenderness over left one third of dior. Blisters, seepage and superficial ulcer about posterior aspect of left leg. Musculoskeletal: No Tenderness to Palpation of Joints or Extremities. ROM restricted. Left popliteal Miles's cyst, chronic. Neurological: Cranial nerves II-XII grossly intact, DTR 2+/4 and Symmetrical, Neuro grossly intact Psych/Mental Status: Flat affect. Assessment & Plan Assessment/Plan (1) Sepsis: PLAN: Resolved Admission: SIRS 2/4 (WBC 36.8, HR 93) Lactic acid 2.7 on admission. Since resolved. / cellulitis received 1 liter NS Urine culture showing group A strep. Unclear that is actual true urinary tract infection or if it is related with underlying cellulitis. No evidence of any bacteremia just yet. Patient is on IV Unasyn. Patient was on vancomycin and discontinued as blood culture is negative for more than 48 hours. 12/15: Patient is started having seepage from posterior aspect of left leg and blisters. Some skin tears. Started on vancomycin again. Continue Unasyn. Wound care consult. ID consult requested. Discussed with the patient and her near the bedside. Patient also has mild sore over tongue and cold sore over lip. On oral acyclovir and BMX liquid. Discussed with the pharmacist. I do not think patient has oral thrush/candidiasis. (2) Cellulitis of leg: PLAN: Slight improvement over proximal left leg. Elevate left lower extremity Duplex performed preliminary read noted a nonvascular mass in the popliteal fossa. CT showed Miles's cyst and she had for more than 10 years. No acute issues with Miles's cyst in the past. (3) CEASAR (acute kidney injury): PLAN: Secondary to sepsis. Treat underlying sepsis. IV fluids. Improved 12/15: Kidney function back to normal. CEASAR resolved. Discontinue IV fluid. PLAN: Plan Chronic conditions: * Morbid obesity. Life modifications as able. BMI 37.3 kg/m?. VTE prophylaxis: LMWH Charges/Coding Visit Charges Inpatient E&M: 71312 Subs Hosp L2
[2022-12-15] MEDS: Mupirocin Ointment 22gm Tube 1 APPLIC TOPICAL ×2 (10:59→23:15)
--- NOTE | 2022-12-15 11:48 | PCM.RX.CS ---
Consult Pharmacy has been consulted to manage selected antiobiotic: Vancomycin Type of Consult: New start Suspected Infection: Skin/Soft tissue Prior Doses of Antibiotics Received/Current Regimen: Vancomycin being restarted with 1500mg loading dose after being stopped 12.13.22. Labs: Sodium 140 mmol/L (136-145) 12/14/22 06:47 Potassium 4.2 mmol/L (3.5-5.1) 12/14/22 06:47 Chloride 110 mmol/L (98-107) H 12/14/22 06:47 Carbon Dioxide 25.0 mmol/L (21.0-32.0) 12/14/22 06:47 Anion Gap 5 (5-15) 12/14/22 06:47 BUN 11 mg/dL (7-18) 12/14/22 06:47 Creatinine 0.98 mg/dL (0.55-1.02) 12/14/22 06:47 Est GFR (MDRD) Af Amer 71 mL/min (>60) 12/14/22 06:47 Est GFR (MDRD) Non-Af 59 mL/min (>60) L 12/14/22 06:47 BUN/Creatinine Ratio 11.2 RATIO (10-20) 12/14/22 06:47 Glucose 114 mg/dL (74-106) H 12/14/22 06:47 Vancomycin Trough 6.6 ug/mL (5.0-15.0) 12/14/22 17:24 Microbiology: Microbiology 12/10/22 13:10 Blood Culture (Wb) - Anticubital Right Blood Culture - Preliminary No growth in 48 hours. 12/10/22 13:00 Blood Culture (Wb) - Anticubital Left Blood Culture - Preliminary No growth in 48 hours. 12/10/22 13:30 Urine, Clean Catch Urine Culture - Final Streptococcus group A Weight used for dosin kg Estimated Creatinine Clearance: 58 ml/min Goal Trough: 15-20 mcg/mL Pharmacy Plan for Drug Dosing: Renal CrCl ~58 ml/min using an adjusted body weight of 74.6kg. Will restart therapy with dosing regimen of 1gm iv q12h. Trough ordered for before 4th total dose. Pharmacy Service will continue to monitor and adjust dosing as required. Follow-Up Labs: Trough Vancomycin - 12.16.22 @2230 before 2300 dose
[2022-12-15 14:05] VITALS: BP 188/87; PULSE 73; RESP 16; TEMP 37; O2SAT 96
[2022-12-15] MEDS: Acyclovir 200 MG Capsule 400 MG PO ×2 (14:21→23:15)
[2022-12-15] MEDS: Labetalol (Prefilled) 20 MG/4 ML 10 MG IV (15:11)
[2022-12-15] MEDS: 0.9% Saline Lock 10 ML Syringe IV (15:12)
[2022-12-15 15:54] LABS: M R Staph aureus DNA By PCR Negative (Negative); Probe Check PASS; Specimen Processing Control PASS; Staph aureus DNA By PCR NEGATIVE (Negative)
[2022-12-15 17:06] VITALS: BP 178/79; PULSE 76; RESP 16; TEMP 37.2; O2SAT 96
[2022-12-15 20:28] VITALS: BP 159/84; PULSE 77; RESP 16; TEMP 37.1; O2SAT 94
[2022-12-15] MEDS: Vancomycin IV 1,000 MG/200 ML BAG 200 MG IV (23:14)
[2022-12-15 23:16] VITALS: BP 167/85; PULSE 79; RESP 16; TEMP 36.9; O2SAT 94
[2022-12-16 05:00] VITALS: BP 175/81; PULSE 80; RESP 16; TEMP 36.8; O2SAT 93
[2022-12-16] MEDS: Enoxaparin 40 MG/0.4 ML Syringe SC (05:38)
[2022-12-16] MEDS: 0.9% Saline Lock 10 ML Syringe IV ×2 (05:38→21:17)
[2022-12-16] MEDS: Acyclovir 200 MG Capsule 400 MG PO ×3 (05:38→21:15)
[2022-12-16 06:02] LABS: Hematocrit 40.3 % (37-47); Hemoglobin 12.6 g/dL (12.0-15.0); Mean Corp Hgb Conc 31.3 g/dL (32-36); Mean Corpuscular Hgb 27.1 pg (27.0-32.0); Mean Corpuscular Volume 86.7 fL (81-99); Mean Platelet Vol. 10.2 fl (6.2-12.0); POSITIVE COUNT YES; POSITIVE DIFFERENTIAL YES; POSITIVE MORPHOLOGY YES; Platelet Count 223 K/mm3 (150-450); RBC Distribution Width CV 13.8 % (11.6-14.6); RBC Distribution Width SD 43.8 fl (35.1-43.9); Red Blood Count 4.65 M/mm3 (4.2-5.4); White Blood Count 15.3 K/mm3 (4.4-11.0)
[2022-12-16 06:03] LABS: Differential Indicated MANUAL DIFF
[2022-12-16 06:31] LABS: Anion Gap 5 (5-15); BUN 7 mg/dL (7-18); BUN/Creat Ratio 7.5 RATIO (10-20); Calcium,Total 8.3 mg/dL (8.5-10.1); Chloride 110 mmol/L (98-107); Creatinine, Serum 0.93 mg/dL (0.55-1.02); EST Glomerular Filtration Rate 62 mL/min (>60); Est Glom Filt Rate - Afr Amer 76 mL/min (>60); Estimated Creatinine Clearance 47.03 ml/min; Glucose 111 mg/dL (74-106); Potassium 3.7 mmol/L (3.5-5.1); Sodium Level 142 mmol/L (136-145)
[2022-12-16 06:58] LABS: Platelet Estimate ADEQUATE (ADEQ); Red Cell Morphology NORM C+C NORMAL (NORM C&C)
[2022-12-16 07:01] LABS: Absolute Lymphocyte Count 2.45 X10^3/uL (0.83-4.51); Blast 1 % (0-0); Eosinophil 4 % (0-5); Lymphocyte 16 % (19-41); Monocyte 6 % (0-10); Myelocyte 1 % (0-0); Neutrophil-Segmented 72 % (47-70); Total Cells Counted 100 (MANUAL DIFF)
[2022-12-16 09:30] VITALS: BP 171/87; PULSE 76; RESP 18; TEMP 36.4; O2SAT 97
[2022-12-16] MEDS: Mupirocin Ointment 22gm Tube 1 APPLIC TOPICAL (09:41)
--- NOTE | 2022-12-16 10:15 | WOUNDNOTE ---
wound photo: left posteromedial lower leg
--- NOTE | 2022-12-16 10:16 | WOUNDNOTE ---
skin photo: left lower leg
[2022-12-16] MEDS: Vancomycin IV 1,000 MG/200 ML BAG 200 MG IV (10:37)
[2022-12-16 13:13] LABS: Pathologist Review Reviewed
--- NOTE | 2022-12-16 14:25 | CON.PCM.ID_ITS ---
Assessment & Plan Assessment/Plan (1) Cellulitis of leg: PLAN: LLE cellulitis, improving. Ucx with strep, did have some frequency prior to admit, mild pyuria on UA. Will narrow abx to cefazolin. Plan on home with po keflex 500mg tid for 5 more days. Will follow, thank you HPI Consult Data Date of Consult: 12/16/22 HPI Narrative Reason for Consultation: cellulitis HPI Narrative: TASHA MCNALLY, is a 77 F with minimal PMH, presented with sx starting one week ag o, c/o progressive LLE swelling, redness, mild pain. No inciting event. Had associated chills, n/v. No recent abx. Came to ED the next day on 12/10, admitted on vanc/unasyn. Feeling better. Full ROS performed and neg except as noted above. PFSH Medical History no medical history Home Medications NK 12/10/22 [History Last Taken Unknown] Allergy/AdvReac Type Severity Reaction Status Date / Time fexofenadine [From Mar] Allergy Hives Verified 06/14/21 13:05 Social History household members: spouse Smoking Status: Never smoker substance use type: does not use Physical Exam Const alert, oriented x3 and no apparent distress General Appearance: cooperative HEENT normocephalic and head/scalp atraumatic Eyes PERRL and EOMs intact bilaterally Neck supple and No nodes Resp normal air movement and clear to auscultation bilaterally Cardio regular rate and regular rhythm GI soft to palpation, non-tender and non-distended Extremity General Extremity: edema Skin Skin Narrative: Reviewed photos LLE Neuro CN's II-XII intact bilaterally Lab / Micro Data Attestation: I reviewed the patient's lab results. Result Diagrams: 12/16/22 05:20 12/16/22 05:20 Labs: Laboratory Results - last 24 hr 12/15/22 11:15: S.aureus Protein A PCR NEGATIVE, MRSA (PCR) Negative 12/16/22 05:20: WBC 15.3 H, RBC 4.65, Hgb 12.6, Hct 40.3, MCV 86.7, MCH 27.1, MCHC 31.3 L, RDW Std Deviation 43.8, RDW Coeff of Joya 13.8, Plt Count 223, MPV 10.2, Neut % (Auto) Not Reportable, Absolute Neuts (auto) 11.0 H, Absolute Lymphs (auto) 2.45, Total Counted 100, Neutrophils % (Manual) 72 H, Lymphocytes % (Manual) 16 L, Monocytes % (Manual) 6, Eosinophils % (Manual) 4, Myelocytes % 1 H, Blast Cells % 1 H*, Diff Path Review Reviewed, Platelet Estimate ADEQUATE, RBC Morphology NORM C+C 12/16/22 05:20: Sodium 142, Potassium 3.7, Chloride 110 H, Carbon Dioxide 27.0, Anion Gap 5, BUN 7, Creatinine 0.93, Estim Creat Clear Calc 47.03, Est GFR (MDRD) Af Amer 76, Est GFR (MDRD) Non-Af 62, BUN/Creatinine Ratio 7.5 L, Glucose 111 H, Calcium 8.3 L Micro: Microbiology 12/10/22 13:00 Blood Culture (Wb) - Anticubital Left Blood Culture - Final No growth in 5 days. 12/10/22 13:10 Blood Culture (Wb) - Anticubital Right Blood Culture - Final No growth in 5 days.
--- NOTE | 2022-12-16 14:37 | PCM.PN.HOSP ---
Reason for Visit Reason for Visit: Diagnoses Sepsis, unspecified organism (12/10/22) Cellulitis of unspecified part of limb (12/10/22) Acute kidney failure, unspecified (12/10/22) Subjective Subjective Patient reports left leg is somewhat painful, does feel better overall than she had, sitting up in chair looking at window Objective Data Objective Data Vital Signs: Vital Signs Temp Pulse Resp BP Pulse Ox O2 Del Method O2 Flow Rate 97.6 F L 76 18 171/87 H 97 Room Air 2 12/16/22 09:30 12/16/22 09:30 12/16/22 09:30 12/16/22 09:30 12/16/22 09:30 12/16/22 13:54 12/11/22 10:00 Oxygen Flow Rate (L/min) 2 Oxygen Delivery Method Room Air Weight: 101.6 kg Body Mass Index (BMI) 37.3 Intake & Output: Intake and Output for Last 24 Hours 12/14/22 12/15/22 12/16/22 23:59 23:59 23:59 Intake Total 2848 / 2998 3378.00 / 3378.00 976 / 976 Balance 2848 / 2998 3378.00 / 3378.00 976 / 976 Lab / Micro Data Result Diagrams: 12/16/22 05:20 12/16/22 05:20 Labs: Laboratory Results - last 24 hr 12/15/22 11:15: S.aureus Protein A PCR NEGATIVE, MRSA (PCR) Negative 12/16/22 05:20: WBC 15.3 H, RBC 4.65, Hgb 12.6, Hct 40.3, MCV 86.7, MCH 27.1, MCHC 31.3 L, RDW Std Deviation 43.8, RDW Coeff of Joya 13.8, Plt Count 223, MPV 10.2, Neut % (Auto) Not Reportable, Absolute Neuts (auto) 11.0 H, Absolute Lymphs (auto) 2.45, Total Counted 100, Neutrophils % (Manual) 72 H, Lymphocytes % (Manual) 16 L, Monocytes % (Manual) 6, Eosinophils % (Manual) 4, Myelocytes % 1 H, Blast Cells % 1 H*, Diff Path Review Reviewed, Platelet Estimate ADEQUATE, RBC Morphology NORM C+C 12/16/22 05:20: Sodium 142, Potassium 3.7, Chloride 110 H, Carbon Dioxide 27.0, Anion Gap 5, BUN 7, Creatinine 0.93, Estim Creat Clear Calc 47.03, Est GFR (MDRD) Af Amer 76, Est GFR (MDRD) Non-Af 62, BUN/Creatinine Ratio 7.5 L, Glucose 111 H, Calcium 8.3 L Micro: Microbiology 12/10/22 13:00 Blood Culture (Wb) - Anticubital Left Blood Culture - Final No growth in 5 days. 12/10/22 13:10 Blood Culture (Wb) - Anticubital Right Blood Culture - Final No growth in 5 days. 12/10/22 13:30 Urine, Clean Catch Urine Culture - Final Streptococcus group A Physical Exam Narrative General: Alert, oriented, no apparent distress HEENT: Atraumatic, normocephalic Eyes: Anicteric, normal conjunctiva, extraocular movements grossly intact Neck: Supple Respiratory: Clear to auscultation bilaterally, normal respiratory effort Cardiovascular: Regular rate GI: Soft, nontender, nondistended Extremities: Left lower extremity dressed/wrapped Musculoskeletal: Moving all extremities Neuro: No overt focal neurological deficits Skin: No rashes appreciated Psych: Cooperative Assessment & Plan Assessment/Plan (1) Cellulitis of leg: PLAN: Plan #Left lower extremity cellulitis -Presented with 1 week of progressive left lower extremity swelling and redness with no injury noted -had white blood cell count of 36.8, heart rate of 93, lactic acid 2.7 -Initially treated with diagnosis of sepsis however given available information feel sepsis ruled out -Blood cultures no growth to date -ID consulted and narrowed spectrum to cefazolin with plans for 5 further days of Keflex on DC -Did have duplex of lower extremity which showed nonvascular mass in popliteal fossa and 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 -Complicates treatment, prognosis, outcomes -Recommend weight loss and lifestyle changes #DVT ppx: Lovenox subcu Bre Covarrubias MD Time spent in the patient's overall evaluation,decision-making process, review of diagnostic data, adjustment of management, discussion with other providers, nursing nursing and ancillary staff involved in patient's care documentation, 36 minutes Charges/Coding Visit Charges Inpatient E&M: 26294 Subs Hosp L3
[2022-12-16 15:30] VITALS: BP 167/87; PULSE 71; RESP 18; TEMP 36.7; O2SAT 96
[2022-12-16] MEDS: Cefazolin 2 GM in 0.9% Normal Saline 100 ML IV ×2 (15:38→21:15)
[2022-12-16 21:18] VITALS: BP 167/90; PULSE 73; RESP 16; TEMP 36.6; O2SAT 96
[2022-12-16] MEDS: Acetaminophen 325 MG Tablet 650 MG PO (23:26)
[2022-12-17 03:30] VITALS: BP 167/86; PULSE 71; RESP 16; TEMP 36.8; O2SAT 94
[2022-12-17 06:09] LABS: Hematocrit 42.5 % (37-47); Hemoglobin 13.5 g/dL (12.0-15.0); Mean Corp Hgb Conc 31.8 g/dL (32-36); Mean Corpuscular Hgb 27.2 pg (27.0-32.0); Mean Corpuscular Volume 85.5 fL (81-99); Mean Platelet Vol. 9.6 fl (6.2-12.0); POSITIVE COUNT YES; POSITIVE MORPHOLOGY YES; Platelet Count 256 K/mm3 (150-450); RBC Distribution Width CV 13.8 % (11.6-14.6); RBC Distribution Width SD 42.9 fl (35.1-43.9); Red Blood Count 4.97 M/mm3 (4.2-5.4); White Blood Count 12.6 K/mm3 (4.4-11.0)
[2022-12-17] MEDS: Acyclovir 200 MG Capsule 400 MG PO ×2 (06:10→13:06)
[2022-12-17] MEDS: Enoxaparin 40 MG/0.4 ML Syringe SC (06:10)
[2022-12-17] MEDS: 0.9% Saline Lock 10 ML Syringe IV (06:10)
[2022-12-17] MEDS: Cefazolin 2 GM in 0.9% Normal Saline 100 ML IV ×2 (06:10→13:06)
[2022-12-17 06:11] LABS: Differential Indicated MANUAL DIFF
[2022-12-17 06:34] LABS: Total Cells Counted 100 (MANUAL DIFF)
[2022-12-17 06:35] LABS: Eosinophil 6 % (0-5); Lymphocyte 19 % (19-41); Metamyelocyte 2 % (0-1); Monocyte 9 % (0-10); Myelocyte 4 % (0-0); Neutrophil-Band 1 % (0-5); Neutrophil-Segmented 59 % (47-70); Platelet Estimate ADEQUATE (ADEQ); Red Cell Morphology NORM C+C NORMAL (NORM C&C)
[2022-12-17 06:36] LABS: Absolute Lymphocyte Count 2.39 X10^3/uL (0.83-4.51); Absolute Neutrophil Count 7.6 X10^3/uL (2.0-7.7); Lymphocyte # 2.39 X10^3/ul (0.83-4.51); Neutrophil # 7.55 X10^3/uL (2.7-7.7)
[2022-12-17 06:46] LABS: Anion Gap 4 (5-15); BUN 7 mg/dL (7-18); BUN/Creat Ratio 6.9 RATIO (10-20); Calcium,Total 8.3 mg/dL (8.5-10.1); Chloride 109 mmol/L (98-107); Creatinine, Serum 1.01 mg/dL (0.55-1.02); EST Glomerular Filtration Rate 57 mL/min (>60); Est Glom Filt Rate - Afr Amer 69 mL/min (>60); Estimated Creatinine Clearance 43.31 ml/min; Glucose 105 mg/dL (74-106); Potassium 3.5 mmol/L (3.5-5.1); Sodium Level 143 mmol/L (136-145)
[2022-12-17 09:55] VITALS: BP 171/81; PULSE 71; RESP 16; TEMP 36.4; O2SAT 97
--- NOTE | 2022-12-17 10:37 | PCM.PN.ID ---
Physical Exam Narrative Feeling better, leg less sore. No fever. Const alert and no apparent distress General Appearance: cooperative Resp normal air movement and clear to auscultation bilaterally Cardio regular rate and regular rhythm GI soft to palpation, non-tender and non-distended Extremity General Extremity: edema Skin Skin Narrative: leg less red ID ID: Route of nutrition/ use of supplements: [] Nutritional Intake: [] IV Site: [] Ordonez Catheter: [] Assessment & Plan Assessment/Plan (1) Cellulitis of leg: PLAN: LLE cellulitis, improving. Ucx with strep, did have some frequency prior to admit, mild pyuria on UA. Cont cefazolin. Plan on home with po keflex 500mg tid for 5 more days. Will follow
[2022-12-17 12:21] LABS: Pathologist Review Reviewed
--- NOTE | 2022-12-17 12:38 | DS.PCM_ITS ---
Providers Date of Admission: 12/10/22 Date of Discharge: 12/17/22 Primary Care Physician: Dr. Frank Salinas MD Consultations 12/15/22 09:52 Consult: Infectious Disease Routine Consulting Provider: Saji Shah Reason for Consult: Left leg cellulitis with seepage, blisters EMERGENT Consult: No MD Notified: Yes Date Notified: 12/15/22 Time Notified: 09:52 Method of Notification: Text 12/15/22 10:30 Consult: Onc/Wound/school adjustment counselor Routine Comment: Reason for Consult:: LLE cellulitis with blisters, seepage Reason For Visit: CELLULITIS, SEPSIS, CEASAR Diagnosis Discharge Diagnosis (1) Cellulitis of leg: Status: Acute Code(s): L03.119 - Cellulitis of unspecified part of limb Plan #Left lower extremity cellulitis #Cold sore on lip and mild sore over tongue #Grp A Strep + urine cx #CEASAR?resolved #Class II obesity #Elevated BP Medications at Discharge Home Medications acyclovir 200 mg capsule 400 mg PO TID 3 days #20 caps 12/17/22 cephalexin 500 mg capsule 500 mg PO TID #14 caps 12/17/22 Hospital Course Summary of Care Provided Minutes Spent on Discharge: 40 Hospital Course: 77-year-old female with no home medications presented to [facility] with swelling, redness, and pain involving left lower extremity on 12/10/2022. She presented 1 week with progressive swelling and redness with no noted injury. On admission had white blood cell count of 36.8, heart rate of 93, lactic acid 2.7. Initially treated with broad-spectrum antibiotics and had a diagnosis of sepsis however given available information feel sepsis ruled out. Blood cultures were no growth to date, ID consulted and narrowed spectrum to cefazolin with plans for 5 further days of Keflex on discharge. 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 Additionally she had a urine culture that grew group A strep, unclear if this was a clinically relevant infection however ID on board and DC'd with Keflex. During her hospitalization she also was noted to have a cold sore on lip and over her tongue and was on a course of acyclovir. CEASAR that was present on admission resolved as well. On day of discharge did discuss antihypertensives with the patient given she had had persistently elevated blood pressures but she wanted to monitor BP at home and discuss with her primary care physician. Still had some leg swelling and pain on the left but overall improving and doing well with physical therapy. D ischarge instructions as follows: -You will be discharged on acyclovir 400 mg 3 times a day through 12/20/2022 for the sore on your lip and tongue with next dose tonight -You will be discharged on Keflex 500 mg 3 times daily for 5 more days for your leg with next dose tonight -We discussed blood pressure medication and he preferred to check your blood pressure at home and discuss with your PCP at your hospital follow-up appointment, please check blood pressure at home and keep a log to take to your primary care physician -Please call your primary care provider's office upon discharge to schedule a hospital follow up within 1 week. -For any concerning signs or symptoms please call 911 or proceed to the nearest emergency department Physical Exam Narrative General: Alert, oriented, no apparent distress HEENT: Atraumatic, normocephalic Eyes: Anicteric, normal conjunctiva, extraocular movements grossly intact Neck: Supple Respiratory: Clear to auscultation bilaterally, normal respiratory effort Cardiovascular: Regular rate GI: Soft, nontender, nondistended Extremities: Left lower extremity dressed/wrapped Musculoskeletal: Moving all extremities Neuro: No overt focal neurological deficits Skin: No rashes appreciated Psych: Cooperative Weight / BMI Weight Weight: 101.6 kg Body Mass Index (BMI) 37.3 ABG / Lab / Microbiology Data Result Diagrams: 12/17/22 05:50 12/17/22 05:50 Laboratory: Laboratory Results - last 24 hr 12/16/22 05:20: Diff Path Review Reviewed 12/17/22 05:50: WBC 12.6 H, RBC 4.97, Hgb 13.5, Hct 42.5, MCV 85.5, MCH 27.2, MCHC 31.8 L, RDW Std Deviation 42.9, RDW Coeff of Joya 13.8, Plt Count 256, MPV 9.6, Neut % (Auto) Not Reportable, Absolute Neuts (auto) 7.6, Absolute Lymphs (auto) 2.39, Total Counted 100, Neutrophils % (Manual) 59, Band Neutrophils % 1, Lymphocytes % (Manual) 19, Monocytes % (Manual) 9, Eosinophils % (Manual) 6 H, Metamyelocytes % 2 H, Myelocytes % 4 H, Diff Path Review Reviewed, Platelet Estimate ADEQUATE, RBC Morphology NORM C+C 12/17/22 05:50: Sodium 143, Potassium 3.5, Chloride 109 H, Carbon Dioxide 30.0, Anion Gap 4 L, BUN 7, Creatinine 1.01, Estim Creat Clear Calc 43.31, Est GFR (MDRD) Af Amer 69, Est GFR (MDRD) Non-Af 57 L, BUN/Creatinine Ratio 6.9 L, Glucose 105, Calcium 8.3 L Microbiology: Microbiology 12/10/22 13:00 Blood Culture (Wb) - Anticubital Left Blood Culture - Final No growth in 5 days. 12/10/22 13:10 Blood Culture (Wb) - Anticubital Right Blood Culture - Final No growth in 5 days. 12/10/22 13:30 Urine, Clean Catch Urine Culture - Final Streptococcus group A D/C Instructions Discharge Diet: No restrictions Meaningful Use Info Meaningful Use Diagnoses (Choose all that apply): None applicable Discharge Plan Admission Admit Date/Time: 12/10/22 15:55 Primary Reason for Your Visit: Left leg swelling and redness Attending Provider: Bre Covarrubias Primary Care Provider: Frank Salinas Consulting Providers: Monica Oleary ; Angel Montano ; Saji Shah ; Reuben Hogan Instructions Patient Instructions: Cellulitis Dc, ED Fall Prevention Additional Instructions / Restrictions: DISCHARGE INSTRUCTIONS PLEASE READ *Please take this with you to your next doctors appointment* -You will be discharged on acyclovir 400 mg 3 times a day through 12/20/2022 for the sore on your lip and tongue with next dose tonight -You will be discharged on Keflex 500 mg 3 times daily for 5 more days for your leg with next dose tonight -We discussed blood pressure medication and he preferred to check your blood pressure at home and discuss with your PCP at your hospital follow-up appointment, please check blood pressure at home and keep a log to take to your primary care physician -Please call your primary care provider's office upon discharge to schedule a hospital follow up within 1 week. -For any concerning signs or symptoms please call 911 or proceed to the nearest emergency department Discharge Orders/Prescriptions Prescriptions: New cephalexin 500 mg capsule 500 mg PO TID Qty: 14 0RF acyclovir 200 mg Capsule 400 mg PO TID 3 Days Qty: 20 0RF Referrals / Follow Up: Frnak Salinas MD [Primary Care Provider] - Within 1 Week (2022 at 8a.m. Will see [id number] [employer] card and photo ID) Disposition Disposition (needs filled in before D/C Order can be placed): Home, Self Care Charges/Coding Visit Charges Inpatient E&M: 28671 Disch Hosp >30min
[2022-12-17 13:05] VITALS: BP 171/79; PULSE 76; RESP 16; TEMP 36.7; O2SAT 96
[2022-12-17] MEDS: Acetaminophen 325 MG Tablet 650 MG PO (13:10)
--- NOTE | 2022-12-17 13:53 | CASEMGMT ---
FLORES PERALES in to discuss discharge planning with patient. Patient is interested in outpatient therapy, script received and placed with discharge instructions with [employer] information. Patient inquired about wound care at discharge. FLORES PERALES updated patient that nursing can review wound care with patient and prior to discharge. Patient voiced understanding and had no further questions or concerns at this time. FLORES PERALES updated floor nurse regarding wound care teaching.
--- NOTE | 2022-12-17 14:26 | PHA.DC.MC ---
Pharmacy Service has performed discharge medication reconciliation and counseling for this patient. 1. ACYCLOVIR 400MG PO TID 2. CEPHALEXIN 500MG PO TID The patient's discharge medication list was reviewed for discrepancies and discrepancies were resolved. Home Medications acyclovir 200 mg capsule 400 mg PO TID 3 days #20 caps 12/17/22 cephalexin 500 mg capsule 500 mg PO TID #14 caps 12/17/22 The patient was counseled on the following discharge medications and changes in medications for homegoing were reviewed. The Reason for Use, instructions for use, and potential side effects were reviewed for all new medications. The patient's questions regarding all of their medications were answered. The patient was able to verbally demonstrate an understanding of their discharge medications. Patient counseled by pharmacy retail support specialistHarvey.
== END 2022-12-17 16:18 | disposition home or self-care (01) | DRG 603 ==
LOC: ED 14:02 → PCU 15:16
PROVIDERS: Internal Medicine; Admitting Provider Internal Medicine; Emergency Provider Emergency Medicine; PCP Family Medicine; Visit Provider Internal Medicine
DX: L03.116 Cellulitis of left lower limb (principal); E87.20 Acidosis, unspecified; N17.9 Acute kidney failure, unspecified; L97.921 Non-pressure chronic ulcer of unspecified part of left lower leg limited to breakdown of skin; E66.01 Morbid (severe) obesity due to excess calories; M71.20 Synovial cyst of popliteal space [Baker], unspecified knee; R82.81 Pyuria; B00.1 Herpesviral vesicular dermatitis; R03.0 Elevated blood-pressure reading, without diagnosis of hypertension; Z68.37 Body mass index [BMI] 37.0-37.9, adult; B95.0 Streptococcus, group A, as the cause of diseases classified elsewhere
CPT/HCPCS: 36415; 73701; 80048; 80053; 80202; 81001; 83605; 85025; 85610; 85730; 87040; 87077; 87086; 87088; 87640; 93005; 93971; 97110; 97116; 97162; 97165; 97530; 97535; 99284; J7030; J7040; Q9967; A4216; J0295

== ENCOUNTER 2022-12-20 21:31 | Inpatient (IN) | payer MEDICARE, SELFPAY ==
[2022-12-20 21:33] VITALS: BP 194/85; PULSE 89; RESP 20; TEMP 36.6; O2SAT 92; BMI 38.5
[2022-12-20 21:39] VITALS: BP 162/71; PULSE 88; RESP 26; TEMP 37.2; O2SAT 94
--- NOTE | 2022-12-20 21:41 | EDS_ITS ---
HPI History of Present Illness Chief Complaint: Nausea/Vomiting Informant: patient, spouse/S.O. and EMS Narrative Narrative: Within the past 1.5 hours patient started feeling nauseated, weak all over, vomiting, and lightheaded/dizzy/spinning all of the above. Also developed a fever. 101 according to squad. It is worse to move but she does not recall moving and triggering this. states the nausea, vomiting, weakness and fever when she was admitted here for about a week this past week for cellulitis of her left lower extremity. She is discharged on antibiotics that she is still taking, appears to be cephalexin according to records, they do not know which one it is. Followed up with primary care doctor couple days ago and was told things were looking improved. The patient denies increasing pain or redness in her leg. She denies any other symptoms right now including earache, tinnitus, headache, or vision disturbance or change. [facility] Medical History (Updated 12/20/22 @ 23:[address] Jhonatan Luz MD) Cellulitis Home Medications acyclovir 200 mg capsule 400 mg PO TID 3 days #20 caps 12/17/22 [Rx Last Taken Unknown] cephalexin 500 mg capsule 500 mg PO TID #14 caps 12/17/22 [Rx Last Taken Unknown] Allergy/AdvReac Type Severity Reaction Status Date / Time fexofenadine [From Mar] Allergy Hives Verified 12/20/22 21:39 Social History household members: spouse Smoking Status: Never smoker substance use type: does not use ROS ROS ED Constitutional Constitutional ED: Denies chills or fever(s) Eyes Eyes: Denies change in vision or diplopia ENT ENT ED: Denies ear pain, rhinorrhea, sore throat or tinnitus Cardiovascular Cardiovascular: Reports lightheadedness; Denies chest pain or palpitations Respiratory/Chest Respiratory/Chest: Denies cough or dyspnea Gastrointestinal Gastrointestinal: Reports nausea and vomiting; Denies abdominal pain or diarrhea Genitourinary Genitourinary ED: Denies dysuria or hematuria Musculoskeletal Musculoskeletal: Denies back pain or neck pain Integumentary Reports rash and wounds; Denies abscess Neurologic Neurologic: Reports vertigo; Denies headache(s), paresthesias or weakness Psychiatric Psychiatric: Denies anxiety or suicidal thoughts EXAM Physical Exam Const Vital Signs: 12/20/22 21:33 12/20/22 21:54 12/20/22 22:01 Temperature 97.9 F Temperature Source Temporal Pulse Rate 89 91 Respiratory Rate 20 H 30 H Blood Pressure 194/85 H 162/71 H Blood Pressure Mean 121 101 Pulse Ox 92 92 Oxygen Delivery Method Room Air Nasal Cannula Nasal Cannula Oxygen Flow Rate (L/min) 2 2 12/20/22 21:39 12/20/22 23:00 Temperature 99.0 F 98.8 F Temperature Source Temporal Temporal Pulse Rate 88 88 Respiratory Rate 26 H 23 H Blood Pressure 162/71 H 157/76 H Blood Pressure Mean 101 103 Pulse Ox 94 97 Oxygen Delivery Method Nasal Cannula Nasal Cannula Oxygen Flow Rate (L/min) 2 2 Positive well nourished, well developed and obese Constitutional Narrative: History significantly limited since patient refuses to move from the left lateral decubitus position. Appears malaised but able to converse and respond to questions appropriately. General Appearance ED: well developed and NAD Nutritional Appearance: obese HEENT Reports moist mucous membranes normocephalic and atraumatic Eyes Eyes Narrative: Refuses to open eyes Neck full ROM, no lymphadenopathy and supple Resp normal respiratory effort and clear to auscultation bilaterally Cardio regular rate, regular rhythm and no murmurs Rate: Negative for tachycardic GI non-tender and non-distended Auscultation: normoactive bowel sounds Palpation: soft Back/Spine no CVA tenderness General Back: other FROM Extremity normal to inspection General Extremety ED: Negative for edema, pulses abnormal or tenderness General Extremity: Negative for edema or pulses abnormal Neuro CN's II-XII intact bilaterally and no sensory deficits noted Neuro Narrative: nml speech; no aphasia or dysarthria Oriented to person and place Sensorium / Orientation: awake, alert and orientation impaired Motor Exam: strength 5/5 throughout Skin Skin Narrative: Diffuse erythema/cellulitis left lower leg, appears to be fading near the line that was drawn at the proximal aspect of it, there is no cellulitis proximal to the line. There appears to be a bullous wound that is in the posterior mid lower leg, she has some mild tenderness proximal to this but for the most part the erythema is not very tender, there is no subcutaneous emphysema, she has l imited range of motion of all 4 extremities due to lack of effort and no different in the left. MDM MDM MDM Narrative Medical decision making narrative: The patient has been did not know exactly when this started or exactly when she was last normal, so given this, I do not consider her a thrombolytic candidate if her vertigo is central, but I did order scans of her head and vasculature to be done stat. The patient is somewhat confused. She is not able to cooperate with regards to [id number] and [id number]. Given her significant leukocytosis, active diarrhea with recent antibiotics, I am holding off on giving antibiotics for possible sepsis, and considering C. difficile colitis, but also scanning her head along with CTA to evaluate her vasculature, since she is disoriented the last known well is unknown, and with fevers I think this is less likely to be stroke although I am considering that since her blood pressure was very high on presentation, but for these reasons I did not call a stroke team. I did discuss with the radiologist at 2315, the plain CT and CT angiography are all normal/unremarkable. For these reasons, she is not a candidate for thrombolytics and she is not a candidate for any intervention or thrombectomy since she has no LVO. 1 view chest x-ray does show some changes in the left base, possibly consistent with early pneumonia, on my interpretation. I agree with the radiologist interpretation, follow-up indicated. She does not have symptoms of pneumonia right now. She has been getting antibiotics at home, I am more concerned about C. difficile and her mental status changes and vertigo. Holding off on the Ancef that I ordered, her lactate is within normal limits, blood and urine cultures were sent, and plan is for admission. History & Record Review Additional record(s) reviewed:: Prior inpatient record and Prior labs Lab Data Attestation: I reviewed the patient's lab results. Labs: Laboratory Results - last 24 hr 12/20/22 12/20/22 12/20/22 21:51 21:51 21:51 WBC 37.5 H* RBC 5.18 Hgb 14.0 Hct 43.6 MCV 84.2 MCH 27.0 MCHC 32.1 RDW Std Deviation 41.9 RDW Coeff of Joya 13.6 Plt Count 288 MPV 9.5 Immature Gran % (Auto) 1.200 H Neut % (Auto) 90.5 H Lymph % (Auto) 3.9 L Bennett % (Auto) 4.0 Eos % (Auto) 0.2 Baso % (Auto) 0.2 Absolute Neuts (auto) 34.0 H Absolute Lymphs (auto) 1.48 Nucleated RBC % 0 Differential Comment SCANNED Diff Path Review May foll PT 13.2 INR 1.0 APTT 28.5 Sodium 137 Potassium 3.6 Chloride 104 Carbon Dioxide 25.0 Anion Gap 8 BUN 10 Creatinine 1.08 H Estim Creat Clear Calc 40.50 Est GFR (MDRD) Af Amer 64 Est GFR (MDRD) Non-Af 53 L BUN/Creatinine Ratio 9.3 L Glucose 145 H Lactic Acid Calcium 8.7 Total Bilirubin 0.60 AST 20 ALT 16 Alkaline Phosphatase 78 Total Protein 8.2 Albumin 2.8 L Globulin 5.4 H Albumin/Globulin Ratio 0.5 L 12/20/22 21:51 WBC RBC Hgb Hct MCV MCH MCHC RDW Std Deviation RDW Coeff of Joya Plt Count MPV Immature Gran % (Auto) Neut % (Auto) Lymph % (Auto) [place] % (Auto) Eos % (Auto) Baso % (Auto) Absolute Neuts (auto) Absolute Lymphs (auto) Nucleated RBC % Differential Comment Diff Path Review PT INR APTT Sodium Potassium Chloride Carbon Dioxide Anion Gap BUN Creatinine Estim Creat Clear Calc Est GFR (MDRD) Af Amer Est GFR (MDRD) Non-Af BUN/Creatinine Ratio Glucose Lactic Acid 1.2 Calcium Total Bilirubin AST ALT Alkaline Phosphatase Total Protein Albumin Globulin Albumin/Globulin Ratio Radiography Diagnostic Testing: Clinical Impression(s) from Imaging Studies Chest X-Ray 12/20/22 22:18 IMPRESSION: Left basilar atelectasis versus infiltrate. Follow-up PA and lateral chest x-ray may be helpful for further evaluation. Electronically Signed: Nadege Hutchinson MD at 22:52 EDT , Head/Neck CTA 12/20/22 22:50 IMPRESSION: No large vessel occlusion, dissection, or other acute arterial abnormality identified on this CTA head/neck exam. Electronically Signed: Shankar Armas MD at 23:14 EDT , ADDENDUM: 12/20/22 2325 IMPRESSION: No large vessel occlusion, dissection, or other acute arterial abnormality identified on this CTA head/neck exam. N.B. : The above Results were Read Back by Shankar Armas MD to Jhonatan Luz MD, and understanding confirmed on 12/20/2022 23:18:16 (ET). Electronically Signed: Shankar Armas MD at 23:14 EDT Reading Location ID and State: [address] [place] [address] Tel , Service support , Rhythm Strip Rhythm Strip: Sinus Rhythm Rate: 95 Ectopy: None EKG Initial EKG: Attestation: I personally reviewed and interpreted this EKG as follows: Interpretation: Sinus Rhythm and No Acute Injury Pattern Management Discussion w/another healthcare provider: Hospitalist and Radiologist Discharge Plan Dx/Rx/DC Orders Clinical Impression: Acute encephalopathy, Leukocytosis, Peripheral vertigo, unspecified, Antibiotic-associated diarrhea, Left leg cellulitis Disposition Disposition: Acute Care Hospital [facility]
--- NOTE | 2022-12-20 21:46 | CT_ITS ---
INDICATION: vertigo EXAMINATION: CT BRAIN - CT Head Stroke Protocol W/O Contrast Injection TECHNIQUE: Multiple axial images were obtained of the head without intravenous contrast. A radiation dose optimization technique was used for this scan. IV Contrast dosage and agent: None. Radiation Dose (provided by facility) CTDIvol (NA ) mGy, DLP ( NA) mGy-cm COMPARISON: : Prior study dated: 06/14/2021 FINDINGS: HEMISPHERES: 1. The cerebral parenchyma, ventricular system, subarachnoid spaces have normal configuration and density. There is a normal gyral pattern. There is normal tompkins/white differentiation. No midline shift.. 2. The hemispheric white matter has normal appearance. Benign basal ganglia calcification is are present. There are minimal involutional changes. 3. No intraparenchymal mass, hemorrhage, or acute territorial infarct. CEREBELLUM - BRAINSTEM: The cerebellum, brainstem, basilar and suprasellar cisterns have normal configuration. Area of remote infarct present within the LEFT cerebellar hemisphere.. No Chiari malformation. PITUITARY: Infundibulum and pituitary have normal configuration. Midline structures appear normal. VESSELS: 1. No significant vascular calcifications in the cavernous carotid vessels. 2. No hyperdense vascular signs noted.. ORBITS AND PARANASAL SINUSES: 1. Normal appearance of the bony orbits. Normal appearance of the globes and retrobulbar soft tissues.. 2. Paranasal sinuses are clear. BONY ELEMENTS: Bony elements of the cranial vault, facial skeleton and skull base have normal appearance. SCALP AND SOFT TISSUES: Normal appearance of the soft tissues of the scalp and the visualized face OTHER: None CT/STROKE Brain/Head without Cont IMPRESSION: 1. Stable exam. 2. Minimal involutional changes. 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 3. No intracranial mass, hemorrhage or acute territorial infarct. 4. No radiographically significant sinus disease. Electronically Signed: Zackary Avalos MD at 18:12 EDT ,
[2022-12-20 22:01] VITALS: BP 162/71; PULSE 91; RESP 30; O2SAT 92
[2022-12-20 22:02] LABS: Absolute Lymphocyte Count 1.48 X10^3/uL (0.83-4.51); Basophil# 0.09 X10^3/uL; Basophil% 0.2 % (0-1); Eosinophil# 0.07 X10^3/uL; Eosinophils% 0.2 % (0-5); Hematocrit 43.6 % (37-47); Lymphocyte # 1.48 X10^3/ul (0.83-4.51); Lymphocyte % 3.9 % (19-41); Mean Corp Hgb Conc 32.1 g/dL (32-36); Mean Corpuscular Volume 84.2 fL (81-99); Mean Platelet Vol. 9.5 fl (6.2-12.0); Monocyte# 1.49 X10^3/uL; NRBC Flagged by Analyzer 0 % (0-5); Neutrophil # 33.96 X10^3/uL (2.7-7.7); Neutrophil % 90.5 % (47-70); POSITIVE COUNT YES; POSITIVE DIFFERENTIAL YES; Platelet Count 288 K/mm3 (150-450); RBC Distribution Width CV 13.6 % (11.6-14.6); RBC Distribution Width SD 41.9 fl (35.1-43.9); Red Blood Count 5.18 M/mm3 (4.2-5.4)
[2022-12-20] MEDS: 0.9% Normal Saline 1,000 ML 150 ML IV (22:05)
[2022-12-20 22:10] LABS: Differential Indicated SCAN CRITERIA MET; White Blood Count 37.5 K/mm3 (4.4-11.0)
[2022-12-20 22:12] LABS: Prothrombin Time (Protime)PT. 13.2 SECONDS (11.7-14.9)
[2022-12-20 22:13] LABS: Partial Thromboplast Time 28.5 Seconds (24.1-36.2)
--- NOTE | 2022-12-20 22:18 | RAD_ITS ---
INDICATION: fever EXAMINATION/TECHNIQUE: X-RAY - XR Chest 1 View AP portable. 10:18 PM. COMPARISON: FINDINGS: LINES/DEVICES: None. LUNGS: Patchy opacity at the left lung base. Evaluation of the lung bases suboptimal due to overlying soft tissues. No consolidation. No pneumothorax. MEDIASTINUM: The aorta is atherosclerotic. CARDIAC SILHOUETTE: Not enlarged. BONES AND SOFT TISSUES: No acute abnormalities. RAD/Chest 1 View (Portable) IMPRESSION: Left basilar atelectasis versus infiltrate. Follow-up PA and lateral chest x-ray may be helpful for further evaluation. Electronically Signed: Nadege Hutchinson MD at 22:52 EDT ,
[2022-12-20 22:24] LABS: ALB/GLOB Ratio 0.5 RATIO (0.9-2.4); AST(SGOT) 20 U/L (15-37); Alanine Aminotransfer ALT/SGPT 16 U/L (13-56); Albumin, Serum 2.8 g/dL (3.2-5.0); Alkaline Phosphatase 78 U/L (45-117); Anion Gap 8 (5-15); BUN 10 mg/dL (7-18); BUN/Creat Ratio 9.3 RATIO (10-20); Calcium,Total 8.7 mg/dL (8.5-10.1); Chloride 104 mmol/L (98-107); Creatinine, Serum 1.08 mg/dL (0.55-1.02); EST Glomerular Filtration Rate 53 mL/min (>60); Est Glom Filt Rate - Afr Amer 64 mL/min (>60); Globulin 5.4 g/dL (2.2-4.2); Glucose 145 mg/dL (74-106); Potassium 3.6 mmol/L (3.5-5.1); Protein, Total 8.2 g/dL (6.4-8.2); Sodium Level 137 mmol/L (136-145)
[2022-12-20 22:29] LABS: Lactic Acid 1.2 mmol/L (0.4-1.9)
[2022-12-20 22:35] LABS: Differential Comment SCANNED
--- NOTE | 2022-12-20 22:50 | CT_ITS ---
EXAM: CT ANGIOGRAPHY HEAD AND NECK WITH INTRAVENOUS CONTRAST CLINICAL INDICATION: vertigo TECHNIQUE: [place]/head and neck CT angiography protocol performed with intravenous contrast. This CT exam was performed using one or more of the following dose reduction techniques: automated exposure control, adjustment of the mA and/or kV according to patient size, and/or use of iterative reconstruction technique. MIP reconstructed images were created and reviewed. CONTRAST: IV 100mL Isovue-[id number] COMPARISON: Head CT from 06/14/2021 FINDINGS: HEAD: RIGHT ANTERIOR CEREBRAL ARTERY: Unremarkable. No significant stenosis at the visualized segments. Anterior communicating artery is present. No aneurysm. RIGHT MIDDLE CEREBRAL ARTERY: Unremarkable. No significant stenosis at the visualized segments. No aneurysm. RIGHT POSTERIOR CEREBRAL ARTERY: Unremarkable. No occlusion or significant stenosis. No aneurysm. RIGHT INTRACRANIAL INTERNAL CAROTID ARTERY: Unremarkable. No significant stenosis. No dissection or occlusion. RIGHT INTRACRANIAL VERTEBRAL ARTERY: Unremarkable. No significant stenosis. No dissection or occlusion. LEFT ANTERIOR CEREBRAL ARTERY: Unremarkable. No significant stenosis at the visualized segments. No aneurysm. LEFT MIDDLE CEREBRAL ARTERY: Unremarkable. No significant stenosis at the visualized segments. No aneurysm. LEFT POSTERIOR CEREBRAL ARTERY: Unremarkable. No occlusion or significant stenosis. No aneurysm. LEFT INTRACRANIAL INTERNAL CAROTID ARTERY: Unremarkable. No significant stenosis. No dissection or occlusion. LEFT INTRACRANIAL VERTEBRAL ARTERY: Unremarkable. No significant stenosis. No dissection or occlusion. BASILAR ARTERY: Unremarkable. No significant stenosis. No aneurysm. OTHER VASCULATURE: No vascular malformation. NECK: RIGHT COMMON CAROTID ARTERY: Unremarkable. No significant stenosis. No dissection or occlusion. RIGHT EXTRACRANIAL INTERNAL CAROTID ARTERY: Unremarkable. No significant stenosis. No dissection or occlusion. RIGHT EXTERNAL CAROTID ARTERY: Unremarkable. No occlusion. RIGHT EXTRACRANIAL VERTEBRAL ARTERY: Unremarkable. No significant stenosis. No dissection or occlusion. LEFT COMMON CAROTID ARTERY: Unremarkable. No significant stenosis. No dissection or occlusion. LEFT EXTRACRANIAL INTERNAL CAROTID ARTERY: Unremarkable. No significant stenosis. No dissection or occlusion. LEFT EXTERNAL CAROTID ARTERY: Unremarkable. No occlusion. LEFT EXTRACRANIAL VERTEBRAL ARTERY: Unremarkable. No significant stenosis. No dissection or occlusion. BRACHIOCEPHALIC AND SUBCLAVIAN ARTERIES: Unremarkable as visualized. No occlusion or significant stenosis. LUNG APICES: Unremarkable as visualized. HEAD and NECK: BONES/JOINTS: Degenerative changes of the cervical spine. No discrete lytic or blastic abnormalities. SOFT TISSUES: Unremarkable. CAROTID STENOSIS REFERENCE USING NASCET CRITERIA: % ICA stenosis = (1 - narrowest ICA diameter/diameter of distal cervical ICA) x 100. Mild - <50% stenosis. Moderate - 50-69% stenosis. Severe - 70-94% stenosis. Near occlusion - 95-99% stenosis. Occluded - 100% stenosis. CT/STROKE CTA Head AND Neck W/Con IMPRESSION: No large vessel occlusion, dissection, or other acute arterial abnormality identified on this CTA head/neck exam. N.B. : The above Results were Read Back by Shankar Armas MD to Jhonatan Luz MD, and understanding confirmed on 12/20/2022 23:18:16 (ET). Electronically Signed: Shankar Armas MD at 23:14 EDT ,
[2022-12-20 23:00] VITALS: BP 157/76; PULSE 88; RESP 23; TEMP 37.1; O2SAT 97
[2022-12-20] MEDS: Metoclopramide 10 MG/2 ML Vial 5 MG IV (23:00)
--- NOTE | 2022-12-20 23:13 | ED.RN ---
pt hans salazar, hold the antibiotic till the stool for cdiff results
--- NOTE | 2022-12-20 23:44 | HP.PCM.HOS_ITS ---
HPI - General General Date of Admission: 12/20/22 Date of Service: 12/21/22 Chief Complaint: Nausea vomiting diarrhea HPI Narrative TASHA MCNALLY, is a 77 F with a significant medical history of obesity who presents emergency department with nausea, vomiting and diarrhea that started the same day of presentation. Associated with her symptoms is dizziness. Patient is unable to accurately describe whether she has lightheadedness or dizziness. She told the ED doctor that She has both lightheadedness and dizziness. Patient was at a hospital and was discharged on 12/17/2022 for cellulitis of her left leg. She was seen by ID and also was diagnosed with UTI as urine culture showed Streptococcus. Antibiotics was narrowed down to cefazolin patient was discharged home on Keflex. She was discharged home on acyclovir and Keflex. [facility] Medical History Cellulitis Home Medications acyclovir 200 mg capsule 400 mg PO TID 3 days #20 caps 12/17/22 [Rx Last Taken Unknown] cephalexin 500 mg capsule 500 mg PO TID #14 caps 12/17/22 [Rx Last Taken Unknown] Allergy/AdvReac Type Severity Reaction Status Date / Time fexofenadine [From Mar] Allergy Hives Verified 12/20/22 21:39 Family History Other Cancer Surgical History H/O vein stripping Social History household members: spouse Smoking Status: Never smoker substance use type: does not use ROS ROS Narrative Pertinent positives and pertinent negatives as noted in HPI. All other systems were reviewed and are negative Vital Signs Vital Signs Vital Signs: 12/20/22 21:33 12/20/22 21:54 12/20/22 22:01 Temperature 97.9 F Temperature Source Temporal Pulse Rate 89 91 Respiratory Rate 20 H 30 H Blood Pressure 194/85 H 162/71 H Blood Pressure Mean 121 101 Pulse Ox 92 92 Oxygen Delivery Method Room Air Nasal Cannula Nasal Cannula Oxygen Flow Rate (L/min) 2 2 12/20/22 21:39 12/20/22 23:00 Temperature 99.0 F 98.8 F Temperature Source Temporal Temporal Pulse Rate 88 88 Respiratory Rate 26 H 23 H Blood Pressure 162/71 H 157/76 H Blood Pressure Mean 101 103 Pulse Ox 94 97 Oxygen Delivery Method Nasal Cannula Nasal Cannula Oxygen Flow Rate (L/min) 2 2 Weight Weight: 105 kg Body Mass Index (BMI) 38.5 Physical Exam Narrative Physical exam: General: Well-nourished, well-developed. Head: Normocephalic, atraumatic, no tenderness Eyes: Vision is grossly intact. EOMI ENT, no trauma, moist mucous membranes, no rhinorrhea Neck: Nontender, No thyromegaly. CVS: Regular rate and rhythm. S1-S2 present. No murmur, gallop or rub. Respiratory : clear to auscultation bilaterally, chest wall nontender Abdomen: Soft, nontender, nondistended, hyperactive bowel sounds, no masses : Deferred Back: Nontender, no CVA tenderness. Extremities: Left leg with edema; and erythema receding from previously marked line. Tender left leg. Right leg nontender. Skin: Normal color, no trauma, abrasions Neuro: Alert, oriented, cranial nerves II through XII grossly intact. Psychiatry: Normal mood. Normal affect. Not depressed. Not anxious. Results Lab / Micro Data Result Diagrams: 12/20/22 21:51 12/20/22 21:51 Labs: Laboratory Results - last 24 hr 12/20/22 21:51: WBC 37.5 H*, RBC 5.18, Hgb 14.0, Hct 43.6, MCV 84.2, MCH 27.0, MCHC 32.1, RDW Std Deviation 41.9, RDW Coeff of Joya 13.6, Plt Count 288, MPV 9.5, Immature Gran % (Auto) 1.200 H, Neut % (Auto) 90.5 H, Lymph % (Auto) 3.9 L, [place] % (Auto) 4.0, Eos % (Auto) 0.2, Baso % (Auto) 0.2, Absolute Neuts (auto) 34.0 H, Absolute Lymphs (auto) 1.48, Nucleated RBC % 0, Differential Comment SCANNED, Diff Path Review October12/20/22 21:51: PT 13.2, INR 1.0, APTT 28.5 12/20/22 21:51: Sodium 137, Potassium 3.6, Chloride 104, Carbon Dioxide 25.0, Anion Gap 8, BUN 10, Creatinine 1.08 H, Estim Creat Clear Calc 40.50, Est GFR (MDRD) Af Amer 64, Est GFR (MDRD) Non-Af 53 L, BUN/Creatinine Ratio 9.3 L, Glucose 145 H, Calcium 8.7, Total Bilirubin 0.60, AST 20, ALT 16, Alkaline Phosphatase 78, Total Protein 8.2, Albumin 2.8 L, Globulin 5.4 H, Albumin/Globulin Ratio 0.5 L 12/20/22 21:51: Lactic Acid 1.2 Rhythm Strip Rhythm Strip: Sinus Rhythm Rate: 95 Ectopy: None Radiology Impression Chest X-Ray 12/20/22 22:18 IMPRESSION: Left basilar atelectasis versus infiltrate. Follow-up PA and lateral chest x-ray may be helpful for further evaluation. Electronically Signed: Nadege Hutchinson MD at 22:52 EDT Reading Location ID and State: [address] [place] [address] Tel , Service support , Head/Neck CTA 12/20/22 22:50 IMPRESSION: No large vessel occlusion, dissection, or other acute arterial abnormality identified on this CTA head/neck exam. Electronically Signed: Shankar Armas MD at 23:14 EDT Reading Location ID and State: [facility] / [place] Tel , Service support , ADDENDUM: 12/20/22 4655 IMPRESSION: No large vessel occlusion, dissection, or other acute arterial abnormality identified on this CTA head/neck exam. N.B. : The above Results were Read Back by Shankar Armas MD to Jhonatan Luz MD, and understanding confirmed on 12/20/2022 23:18:16 (ET). Electronically Signed: Shankar Armas MD at 23:14 EDT Reading Location ID and State: [facility] / [place] Tel , Service support , Assessment & Plan Assessment/Plan (1) Diarrhea: (2) Cellulitis of leg: (3) C. difficile colitis: PLAN: Plan C. difficile colitis White count is severely elevated at 37,500. White count on 12/17/2022 was only 12,600 and on 12/16/2022 was 15,300. On presentation there was a bandemia of 1.2%. And left shift of 90.5 percent neutrophils. Supportive treatment with IV fluids, as needed Zofran. Vancomycin p.o. ordered. Dizziness Stroke work-up initiated from the emergency department. Radiologist impression of head and neck CTA: No large vessel occlusion, dissection, or other acute arterial abnormality identified on CTA head/neck exam. This was independently interpreted by hospitalist, agrees radiologist interpretation Doubts CVA. MRI ordered. Check NIH's. Acute cellulitis Was on home Keflex which probably contributed to her C-diff. At this point patient already has C-diff. Cefazolin IV ordered. DVT prophylaxis: Subcutaneous Lovenox ordered. Charges/Coding Visit Charges Inpatient E&M: 67999 Init Hosp L3
[2022-12-20 23:55] VITALS: BP 155/79; PULSE 89; RESP 22; TEMP 36.8; O2SAT 97
[2022-12-21] VITALS (8 sets, daily range): BP systolic 123–146; BP diastolic 50–69; PULSE 68–87; RESP 16–22; TEMP 36.7–37.5; O2SAT 93–98; BMI 37.8
--- NOTE | 2022-12-21 01:08 | MRI_ITS ---
STUDY: MRI BRAIN WITHOUT CONTRAST REASON FOR EXAM: Female, 77 years old. CVA TECHNIQUE: Standardized multiplanar fat and water weighted pulse sequences were obtained. COMPARISON: No relevant prior imaging available for comparison. HEMISPHERES, CEREBELLUM AND BRAINSTEM: 1. The cerebral parenchyma, ventricular system, subarachnoid spaces have normal configuration and density. There is a normal gyral pattern. There is normal tompkins/white differentiation. No midline shift.. 2. Chronic microvascular ischemic changes in the periventricular white matter. There is small old infarction in the left cerebellar hemisphere. 3. No intraparenchymal mass, hemorrhage, or acute territorial infarct. 4. The brainstem, basilar and suprasellar cisterns have normal appearance. No Chiari malformation. PITUITARY: Infundibulum and pituitary have normal configuration. Midline structures appear normal. CSF SPACES: Appropriate for age. No hydrocephalus. Basal cisterns are patent. VESSELS: 1. There are normal flow voids noted in the great vessels at the skull base ORBITS AND PARANASAL SINUSES: 1. Both globes, extraocular muscles, optic nerves and retrobulbar fat appear unremarkable. 2. Paranasal sinuses are clear. BONY ELEMENTS: Bony elements of the cranial vault, facial skeleton and skull base have normal appearance. SCALP AND SOFT TISSUES: Normal appearance of the soft tissues of the scalp and the visualized face OTHER: None MRI/Brain without Contrast IMPRESSION: 1. No intracranial mass, hemorrhage, or acute territorial infarct. 2. Chronic microvascular ischemic changes in the periventricular white matter. There is small old infarction in the left cerebellar hemisphere. Electronically Signed: Favio Macario MD at 14:30 EDT ,
[2022-12-21] MEDS: 0.9% Normal Saline 1,000 ML 75 ML IV (01:41)
[2022-12-21] MEDS: Vancomycin 125 MG/5 ML Susp PO.SYRINGE PO ×4 (03:34→23:23)
[2022-12-21] MEDS: Menthol/Lanolin/Calamine/Znox 113 GM Tube 1 APPLIC TOPICAL ×3 (07:08→21:43)
[2022-12-21] MEDS: Acetaminophen 325 MG Tablet 650 MG PO (07:11)
[2022-12-21 07:22] LABS: Absolute Lymphocyte Count 1.99 X10^3/uL (0.83-4.51); Absolute Neutrophil Count 43.5 X10^3/uL (2.0-7.7); Basophil# 0.15 X10^3/uL; Basophil% 0.3 % (0-1); Eosinophil# 0.01 X10^3/uL; Hemoglobin 12.5 g/dL (12.0-15.0); Lymphocyte # 1.99 X10^3/ul (0.83-4.51); Lymphocyte % 4.1 % (19-41); Mean Corp Hgb Conc 30.5 g/dL (32-36); Mean Corpuscular Hgb 26.9 pg (27.0-32.0); Mean Corpuscular Volume 88.2 fL (81-99); Mean Platelet Vol. 9.9 fl (6.2-12.0); Monocyte# 1.93 X10^3/uL; NRBC Flagged by Analyzer 0 % (0-5); Neutrophil # 43.46 X10^3/uL (2.7-7.7); POSITIVE COUNT YES; POSITIVE DIFFERENTIAL YES; Platelet Count 299 K/mm3 (150-450); RBC Distribution Width CV 13.8 % (11.6-14.6); RBC Distribution Width SD 44.3 fl (35.1-43.9); Red Blood Count 4.65 M/mm3 (4.2-5.4)
[2022-12-21 07:44] LABS: ALB/GLOB Ratio 0.5 RATIO (0.9-2.4); AST(SGOT) 17 U/L (15-37); Alanine Aminotransfer ALT/SGPT 13 U/L (13-56); Albumin, Serum 2.4 g/dL (3.2-5.0); Alkaline Phosphatase 67 U/L (45-117); Anion Gap 9 (5-15); BUN 9 mg/dL (7-18); BUN/Creat Ratio 9.6 RATIO (10-20); Calcium,Total 7.7 mg/dL (8.5-10.1); Chloride 107 mmol/L (98-107); Cholesterol 167 mg/dL (200); Creatinine, Serum 0.94 mg/dL (0.55-1.02); EST Glomerular Filtration Rate 62 mL/min (>60); Est Glom Filt Rate - Afr Amer 75 mL/min (>60); Estimated Creatinine Clearance 46.53 ml/min; Globulin 4.4 g/dL (2.2-4.2); Glucose 114 mg/dL (74-106); High Density Lipoprotein 52 mg/dL; Potassium 3.6 mmol/L (3.5-5.1); Protein, Total 6.8 g/dL (6.4-8.2); Sodium Level 141 mmol/L (136-145); Triglycerides 115 mg/dL; Very Low Density Lipoprotein 23 mg/dL (5-40)
--- NOTE | 2022-12-21 08:01 | PN.HOSP_ITS ---
Reason for Visit Reason for Visit: Nausea/Vomiting/diarrhea Subjective Subjective Patient is a 77-year-old female who had a recent admission here from 12/10/2022 through 12/17/2022 for cellulitis and urinary tract infection. Patient was seen by infectious disease and discharged on Keflex. She was also placed on acyclovir discharge for oral herpetic outbreak. She had CEASAR on presentation which had resolved prior to discharge. Her blood pressure was noted to be elevated however she deferred any medications and wanted to monitor her blood pressure at home and follow-up with her outpatient primary care physician. On the day of presentation she developed nausea, vomiting, and diarrhea. She had some associated dizziness/lightheadedness but was unable to ascertain the difference between the 2. Vital signs on presentation demonstrated temperature of 97.9, blood pressure 194/85, heart rate 89, respiratory rate was 20 and oxygen saturation was 92% on room air. CBC demonstrated a white count of 37.5. Her white count on the day of discharge was 12,000. Her CBC was otherwise unremarkable. Her chemistry panel was unremarkable. With her diarrhea, C. difficile was ordered and was positive for toxin and antigen. She was started on vancomycin. Given IV hydration and admitted to the medical floor. She will need to also continue her Keflex which is to be done on 12/22/2022. I evaluated her the morning after admission. She states she feels okay. Her leg is improving. She was able to show me pictures of the progression and she has significantly less redness with marked retraction from her initial infection. She feels that she is better with regards to this on the antibiotics however she is reporting profuse diarrhea that started yesterday. We discussed her testing positive for C. difficile and what that means. An MRI was ordered for concern for dizziness on presentation and was pending at the time of my evaluation with her. 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 She understands that she is ill and does not want to go home until she is ready however. Objective Data Objective Data Vital Signs: Vital Signs Temp Pulse Resp BP Pulse Ox O2 Del Method O2 Flow Rate 98.0 F 74 16 146/67 H 98 Nasal Cannula 2 12/21/22 06:00 12/21/22 06:00 12/21/22 06:00 12/21/22 06:00 12/21/22 06:00 12/21/22 06:00 12/21/22 06:00 Oxygen Flow Rate (L/min) 2 Oxygen Delivery Method Nasal Cannula Weight: 103.1 kg Body Mass Index (BMI) 37.8 Intake & Output: Intake and Output for Last 24 Hours 12/19/22 12/20/22 12/21/22 23:59 23:59 23:59 Intake Total 567.5 / 567.5 Balance 567.5 / 567.5 Lab / Micro Data Result Diagrams: 12/21/22 06:30 12/21/22 06:30 Labs: Laboratory Results - last 24 hr 12/20/22 21:51: WBC 37.5 H*, RBC 5.18, Hgb 14.0, Hct 43.6, MCV 84.2, MCH 27.0, MCHC 32.1, RDW Std Deviation 41.9, RDW Coeff of Joya 13.6, Plt Count 288, MPV 9.5, Immature Gran % (Auto) 1.200 H, Neut % (Auto) 90.5 H, Lymph % (Auto) 3.9 L, [place] % (Auto) 4.0, Eos % (Auto) 0.2, Baso % (Auto) 0.2, Absolute Neuts (auto) 34.0 H, Absolute Lymphs (auto) 1.48, Nucleated RBC % 0, Differential Comment SCANNED, Diff Path Review October12/20/22 21:51: PT 13.2, INR 1.0, APTT 28.5 12/20/22 21:51: Sodium 137, Potassium 3.6, Chloride 104, Carbon Dioxide 25.0, Anion Gap 8, BUN 10, Creatinine 1.08 H, Estim Creat Clear Calc 40.50, Est GFR (MDRD) Af Amer 64, Est GFR (MDRD) Non-Af 53 L, BUN/Creatinine Ratio 9.3 L, Glucose 145 H, Calcium 8.7, Total Bilirubin 0.60, AST 20, ALT 16, Alkaline Phosphatase 78, Total Protein 8.2, Albumin 2.8 L, Globulin 5.4 H, Albumi n/Globulin Ratio 0.5 L 12/20/22 21:51: Lactic Acid 1.2 12/21/22 06:30: Sodium 141, Potassium 3.6, Chloride 107, Carbon Dioxide 25.0, Anion Gap 9, BUN 9, Creatinine 0.94, Estim Creat Clear Calc 46.53, Est GFR (MDRD) Af Amer 75, Est GFR (MDRD) Non-Af 62, BUN/Creatinine Ratio 9.6 L, Glucose 114 H, Calcium 7.7 L, Total Bilirubin 0.50, AST 17, ALT 13, Alkaline Phosphatase 67, Total Protein 6.8, Albumin 2.4 L, Globulin 4.4 H, Albumin/Globulin Ratio 0.5 L, Triglycerides 115, Cholesterol 167, LDL Cholesterol 92, VLDL Cholesterol 23, HDL Cholesterol 52 Micro: Microbiology 12/20/22 22:50 Stool C. difficile GDH Antigen & Toxins - Final Toxigenic C. difficile 12/20/22 22:50 Stool C. difficile DNA Amplification - Final Radiography Diagnostic Testing: Radiology Impression Chest X-Ray 12/20/22 22:18 IMPRESSION: Left basilar atelectasis versus infiltrate. Follow-up PA and lateral chest x-ray may be helpful for further evaluation. Electronically Signed: Nadege Hutchinson MD at 22:52 EDT , Head/Neck CTA 12/20/22 22:50 IMPRESSION: No large vessel occlusion, dissection, or other acute arterial abnormality identified on this CTA head/neck exam. N.B. : The above Results were Read Back by Shankar Armas MD to Jhonatan Luz MD, and understanding confirmed on 12/20/2022 23:18:16 (ET). Electronically Signed: Shankar Armas MD at 23:14 EDT , Rhythm Strip Rhythm Strip: Sinus Rhythm Rate: 95 Ectopy: None Physical Exam Const alert, oriented x3, no apparent distress, healthy appearing and well nourished Constitutional Narrative: Very pleasant, well-appearing, elderly, white female, sitting up in bed, appears comfortable and nontoxic HEENT head/scalp atraumatic and moist oral mucous membranes HEENT Narrative: Mallampati 3, no thrush Head and Scalp: normocephalic Resp normal respiratory effort, no retractions, no use of accessory muscles and clear to auscultation bilaterally Auscultation: Negative for rales, rhonchi or wheezes Cardio regular rate, regular rhythm, S1 normal heart sound, S2 normal heart sound, no murmurs, no rub, no gallops and no clicks GI GI Narrative: Abdomen is soft, mild diffuse tenderness but no point tenderness, no distention Auscultation: hyperactive bowel sounds Extremity Extremity Narrative: Edema noted in left lower extremity which is area of recent cellulitis-appears improved from previous when compared to pictures patient has at the bedside, posterior fluid bullae noted with some surrounding necrosis probably progression of healing, no erythema above-knee at this time, no clubbing or cyanosis Neuro oriented x3, moves all extremities and no focal motor deficits Speech: speech normal Psych affect normal Psych Narrative: Extremely pleasant, appropriately interactive Assessment & Plan Assessment/Plan (1) C. difficile colitis: (2) Diarrhea: (3) Left leg cellulitis: (4) Leukocytosis: (5) Dizziness: PLAN: Plan C. difficile colitis -Profound diarrhea -Not improving yet -Significant leukocytosis at 48,000 -Patient does not appear toxic and overall the pills well -Continue vancomycin p.o. 125 every 6 hours day 1 of 14 Left lower extremity cellulitis -Per discussion with patient and review of previous imaging left lower extremity is improving -We will continue antibiotics -Patient was nauseated and having vomiting on presentation so Ancef currently ordered -We will continue Ancef until discharge and restart Keflex to complete at home Leukocytosis -Likely related to C. difficile colitis and leucovorin reaction -Repeat CBC in a.m. -If white count does not start improving will check CT of the abdomen pelvis Dizziness -Resolved -CTA done on admission shows no LVO -MRI done today and demonstrates chronic microvascular ischemic changes in the periventricular white matter and a small old infarction in the left cerebellar hemisphere -Likely related to volume depletion from severe nausea and vomiting -Okay to discontinue NIH Old cerebellar stroke -Noted on MRI on left cerebellum -Start daily aspirin 81 mg -Check lipid profile and start statin if needed Elevated blood pressure -This was reviewed with the patient at her last hospitalization and she wishes to follow-up as an outpatient with her primary care physician prior to starting any antihypertensives Obesity -BMI 37.8 -Recommend weight loss -Complicates treatment, prognosis, outcomes DVT prophylaxis -Start enoxaparin CODE STATUS Full code Charges/Coding Visit Charges Inpatient E&M: 06073 Subs Hosp L2
[2022-12-21 08:03] LABS: Differential Indicated SCAN CRITERIA MET; White Blood Count 48.3 K/mm3 (4.4-11.0)
[2022-12-21] MEDS: Cefazolin 1 GM/50 ML BAG IV ×3 (08:23→21:42)
[2022-12-21 08:52] LABS: Differential Comment SCANNED
[2022-12-21 09:14] LABS: Bacteria 0 SEEN /hpf (None Seen); Mucous, Urine 0 SEEN /hpf (<or=2+); Red Blood Cells-Urine 0 SEEN /hpf (0-5); Squamous Epithelial Cells - UA 0 SEEN /hpf (5-10); White Blood Cells 0 SEEN /hpf (0-5)
[2022-12-21 09:19] LABS: Color, Urine Yellow (Yellow); Glucose, Dipstick Normal (Normal); Ketone-Dipstick Negative (Negative); Leukocyte Esterase-Dipstick Negative /ul (Negative); Nitrite-Dipstick Negative (Negative); Occult Blood-Urine 10 /ul (Negative); Protein-Dipstick 15 mg/dl (Negative); Urine Bilirubin Dipstick Negative (Negative); Urine Clarity Clear (Clear); Urine Urobilinogen Normal (Normal)
[2022-12-21 09:26] LABS: Amorphous Sediment 1+
--- NOTE | 2022-12-21 10:15 | CASEMGMT ---
FLORES PERALES Readmission Note Previous Admission:?12/10/22-12/17/22 Diagnosis:? cellulitis, sepsis, CEASAR DC Disposition: Home, pt reports she has outpt therapy rx Current Admission? Current Diagnosis: intractable nausea and vomiting Patient was at a hospital and was discharged on 12/17/2022 for cellulitis of her left leg. She was seen by ID and also was diagnosed with UTI as urine culture showed Streptococcus. Antibiotics was narrowed down to cefazolin patient was discharged home on Keflex. She was discharged home on acyclovir and Keflex. Pt presented with nausea, vomiting and diarrhea. + Cdiff. Pt reports taking her medications as ordered and having a follow up appt with her PCP. Pt states PCP felt pt was progressing as she should be. Pt states she was doing ok at home and caring for her granddtrs without difficulty. Pt to have MRI, declined therapy this morning. Pt states she does not feel she will need any homegoing services. She states she does have a rx for outpt therapy if she should decide she wants to do this. FLORES PERALES to follow therapy. DC Plan: Home, follow therapy.
[2022-12-22 03:00] VITALS: BP 132/50; PULSE 76; RESP 14; TEMP 36.9; O2SAT 95
[2022-12-22 03:24] VITALS: BMI 37.8
[2022-12-22 05:45] LABS: Absolute Lymphocyte Count 2.26 X10^3/uL (0.83-4.51); Absolute Neutrophil Count 17.4 X10^3/uL (2.0-7.7); Basophil# 0.06 X10^3/uL; Basophil% 0.3 % (0-1); Eosinophil# 0.31 X10^3/uL; Eosinophils% 1.5 % (0-5); Hematocrit 36.9 % (37-47); Hemoglobin 11.5 g/dL (12.0-15.0); Lymphocyte # 2.26 X10^3/ul (0.83-4.51); Lymphocyte % 10.6 % (19-41); Mean Corp Hgb Conc 31.2 g/dL (32-36); Mean Corpuscular Hgb 27.3 pg (27.0-32.0); Mean Corpuscular Volume 87.4 fL (81-99); Mean Platelet Vol. 9.7 fl (6.2-12.0); Monocyte# 1.18 X10^3/uL; Monocyte% 5.5 % (0-10); NRBC Flagged by Analyzer 0 % (0-5); Neutrophil # 17.39 X10^3/uL (2.7-7.7); Neutrophil % 81.5 % (47-70); Platelet Count 257 K/mm3 (150-450); RBC Distribution Width SD 44.2 fl (35.1-43.9); Red Blood Count 4.22 M/mm3 (4.2-5.4); White Blood Count 21.3 K/mm3 (4.4-11.0)
[2022-12-22] MEDS: Vancomycin 125 MG/5 ML Susp PO.SYRINGE PO ×2 (06:11→11:39)
[2022-12-22] MEDS: Menthol/Lanolin/Calamine/Znox 113 GM Tube 1 APPLIC TOPICAL (06:11)
[2022-12-22] MEDS: Cefazolin 1 GM/50 ML BAG IV (06:11)
[2022-12-22 06:23] LABS: Anion Gap 6 (5-15); BUN 9 mg/dL (7-18); BUN/Creat Ratio 9.8 RATIO (10-20); Calcium,Total 7.8 mg/dL (8.5-10.1); Chloride 110 mmol/L (98-107); Cholesterol 138 mg/dL (200); Creatinine, Serum 0.92 mg/dL (0.55-1.02); EST Glomerular Filtration Rate 63 mL/min (>60); Est Glom Filt Rate - Afr Amer 76 mL/min (>60); Estimated Creatinine Clearance 47.54 ml/min; Glucose 100 mg/dL (74-106); High Density Lipoprotein 24 mg/dL; Potassium 3.3 mmol/L (3.5-5.1); Sodium Level 141 mmol/L (136-145); Triglycerides 122 mg/dL; Very Low Density Lipoprotein 24 mg/dL (5-40)
[2022-12-22 10:11] VITALS: BP 144/64; PULSE 72; RESP 16; TEMP 36.4; O2SAT 94
[2022-12-22] MEDS: Potassium Chloride Oral Tablet 20 MEQ 40 MEQ PO (10:18)
[2022-12-22] MEDS: Enoxaparin 40 MG/0.4 ML Syringe SC (10:18)
[2022-12-22] MEDS: Aspirin 81 MG TAB.CHEW PO (10:18)
--- NOTE | 2022-12-22 11:23 | PCM.DC.SUM ---
Providers Date of Admission: 12/21/22 Date of Discharge: 12/22/22 Primary Care Physician: Dr. Frank Salinas MD Reason For Visit: INTRACTABLE NAUSEA AND VOMITING Diagnosis Discharge Diagnosis (1) C. difficile colitis: Status: Acute Code(s): A04.72 - Enterocolitis due to Clostridium difficile, not specified as recurrent (2) Diarrhea: Status: Acute Code(s): R19.7 - Diarrhea, unspecified (3) Left leg cellulitis: Status: Acute Code(s): L03.116 - Cellulitis of left lower limb (4) Leukocytosis: Status: Acute Code(s): D72.829 - Elevated white blood cell count, unspecified (5) Dizziness: Status: Acute Code(s): R42 - Dizziness and giddiness Medications at Discharge Home Medications acyclovir 200 mg capsule 400 mg PO TID 3 days #20 caps 12/17/22 cephalexin 500 mg capsule 500 mg PO TID #14 caps 12/17/22 aspirin 81 mg chewable tablet 81 mg PO BREAKFAST #0 tabs 12/22/22 vancomycin 125 mg capsule 125 mg PO Q6H #52 caps 12/22/22 Hospital Course Operations None Procedures EKG and - (MRI brain/CTA head and neck/CT brain) Summary of Care Provided Minutes Spent on Discharge: 37 Hospital Course: Patient is a 77-year-old female who had a recent admission here from 12/10/2022 through 12/17/2022 for cellulitis and urinary tract infection.? Patient was seen by infectious disease and discharged on Keflex.? She was also placed on acyclovir discharge for oral herpetic outbreak.? She had CEASAR on presentation which had resolved prior to discharge.? Her blood pressure was noted to be elevated however she deferred any medications and wanted to monitor her blood pressure at home and follow-up with her outpatient primary care physician.? On the day of presentation she developed nausea, vomiting, and diarrhea.? She had some associated dizziness/lightheadedness but was unable to ascertain the difference between the 2.? Vital signs on presentation demonstrated temperature of 97.9, blood pressure 194/85, heart rate 89, respiratory rate was 20 and oxygen saturation was 92% on room air.? CBC demonstrated a white count of 37.5.? Her white count on the day of discharge was 12,000.? Her CBC was otherwise unremarkable.? Her chemistry panel was unremarkable.? With her diarrhea, C. difficile was ordered and was positive for toxin and antigen.? She was started on vancomycin.? Given IV hydration and admitted to the medical floor.? She was maintained on antibiotics for her left lower extremity cellulitis with Keflex while she was hospitalized and having nausea and vomiting. Her white count went up after admission to a peak of 48,000 however had decreased to 21,000 x 625 2022. Her renal function was normal and her stools have decreased in frequency and volume. Her dizziness had resolved. Stroke work-up was pursued on presentation due to her dizziness with CT of her brain and CTA of her head and neck. CT of the brain showed minimal involutional changes and a stable remote infarct of the left cerebellar hemisphere. CTA of the head and neck demonstrated no large vessel occlusion, dissection or other acute arterial abnormality and no significant blockages. MRI of her brain showed no acute process, chronic microvascular ischemic changes in the periventricular white matter and 1 small old infarction of the left cerebellar hemisphere. I discussed the findings of the cerebellum on the MRI and CT scan with the patient and she denies ever having previous stroke. She did state that several years ago she had an incident where she was not able to talk adequately while she was at school but that resolved quickly. She has had no balance issues. I was able to review pictures of her leg prior to to her previous admission during her previous admission and after discharge. Her leg seemingly continues to improve both in swelling and erythema. The wound from blistering on the posterior aspect of the calf appears to be healing well. We will have her continue her Keflex until her prescription is completed and have her follow-up at the wound center. The number was given and she is to call and make an appointment to be seen this week tomorrow. With regards to her C. difficile. She was discharged on vancomycin tablets 125 mg every 6 hours for the next 13 days. We did recommend she start a baby aspirin given the findings on her MRI. She will hold off on initiating these until after her completion of C. difficile treatment to avoid any rectal irritation or bleeding. Her cholesterol was obtained and her LDL was noted to be 92 but her overall cholesterol was less than 200. She would like to try diet changes to change her cholesterol as her current LDL goal should be less than 70 with cerebrovascular disease. Her blood pressure goal should also be less than 130/80. Patient would like to review this further with her primary care physician as previously discussed at her last hospitalization prior to starting any antihypertensives. She was able to be discharged home in stable condition on 12/22/2022. She states she has an appointment with her primary care physician tomorrow and will make an appointment with the wound center to be seen later this week. Discharge diagnoses: C. difficile colitis Left lower extremity cellulitis Hypokalemia-treated Leukocytosis-improving Dizziness-resolved Old cerebellar stroke Elevated blood pressure Obesity Physical Exam Const alert, oriented x3, no apparent distress, healthy appearing and well nourished Constitutional Narrative: Very pleasant, well-appearing, elderly, white female, sitting up in a chair at the bedside, appears comfortable and nontoxic General Appearance: cooperative, comfortable, well kempt and well developed Orientation / Consciousness: awake, oriented to person, oriented to place and oriented to time Exam Limitations: no limitations Nutritional Appearance: obese HEENT normocephalic, head/scalp atraumatic, hearing grossly normal bilaterally and moist oral mucous membranes HEENT Narrative: Mallampati 2-3, no thrush Eyes PERRL, EOMs intact bilaterally and conjunctivae normal Eyes Narrative: No scleral icterus Neck no lymphadenopathy and supple Neck Narrative: Trachea line, no thyroid enlargement Resp normal respiratory effort, no retractions, no use of accessory muscles and clear to auscultation bilaterally Auscultation: Negative for rales, rhonchi or wheezes Cardio regular rate, regular rhythm, S1 normal heart sound, S2 normal heart sound, no murmurs, no rub, no gallops and no clicks GI GI Narrative: Abdomen is soft, bowel sounds are mildly hyperactive but improving, no tenderness or distention Extremity Extremity Narrative: Edema noted in left lower extremity which is area of recent cellulitis-appears improved from previous when compared to pictures patient has at the bedside, posterior superficial wound with no bullae, no erythema extending beyond previous outline and erythema seems to be retracting, decreased tenderness, no cyanosis or clubbing, right lower extremity without any significant abnormality or edema Skin skin turgor normal and no jaundice Skin Narrative: As noted above Neuro oriented x3, CN's II-XII intact bilaterally, moves all extremities and no focal motor deficits Speech: speech normal Psych affect normal Psych Narrative: Extremely pleasant, appropriately interactive Weight / BMI Weight Weight: 103.1 kg Body Mass Index (BMI) 37.8 ABG / Lab / Microbiology Data Result Diagrams: 12/22/22 05:15 12/22/22 05:15 Laboratory: Laboratory Results - last 24 hr 12/22/22 05:15: WBC 21.3 H, RBC 4.22, Hgb 11.5 L, Hct 36.9 L, MCV 87.4, MCH 27.3, MCHC 31.2 L, RDW Std Deviation 44.2 H, RDW Coeff of Joya 14.0, Plt Count 257, MPV 9.7, Immature Gran % (Auto) 0.600, Neut % (Auto) 81.5 H, Lymph % (Auto) 10.6 L, [place] % (Auto) 5.5, Eos % (Auto) 1.5, Baso % (Auto) 0.3, Absolute Neuts (auto) 17.4 H, Absolute Lymphs (auto) 2.26, Nucleated RBC % 0 12/22/22 05:15: Sodium 141, Potassium 3.3 L, Chloride 110 H, Carbon Dioxide 25.0, Anion Gap 6, BUN 9, Creatinine 0.92, Estim Creat Clear Calc 47.54, Est GFR (MDRD) Af Amer 76, Est GFR (MDRD) Non-Af 63, BUN/Creatinine Ratio 9.8 L, Glucose 100, Calcium 7.8 L, Triglycerides 122, Cholesterol 138, LDL Cholesterol 90, VLDL Cholesterol 24, HDL Cholesterol 24 L Microbiology: Microbiology 12/20/22 22:50 Stool C. difficile GDH Antigen & Toxins - Final Toxigenic C. difficile 12/20/22 22:50 Stool C. difficile DNA Amplification - Final Radiography Diagnostic Testing: Radiology Impression Brain CT 12/20/22 21:46 IMPRESSION: 1. Stable exam. 2. Minimal involutional changes. 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 3. No intracranial mass, hemorrhage or acute territorial infarct. 4. No radiographically significant sinus disease. Electronically Signed: Zackary Avalos MD at 18:12 EDT , Brain MRI 12/21/22 01:08 IMPRESSION: 1. No intracranial mass, hemorrhage, or acute territorial infarct. 2. Chronic microvascular ischemic changes in the periventricular white matter. There is small old infarction in the left cerebellar hemisphere. Electronically Signed: Favio Macario MD at 14:30 EDT , D/C Instructions Discharge Diet: Low fat / Low cholesterol Discharge Activity: Return to Normal Activity Meaningful Use Info Meaningful Use Diagnoses (Choose all that apply): None applicable Discharge Plan Admission Admit Date/Time: 12/21/22 09:40 Primary Reason for Your Visit: Nausea/Vomiting/Diarrhea Attending Provider: Xiomara Ramirez Primary Care Provider: Frank Salinas Consulting Providers: Babatunde Dobbs Instructions Patient Instructions: C diff, Clostridium Difficile Infection, C. Diff Prevent Infection Additional Instructions / Restrictions: 1. Start aspirin after you completed your treatment for C. difficile 2. Please call the wound center to schedule a follow-up appointment for your left leg to be seen this week--> [phone] Discharge Orders/Prescriptions Prescriptions: New aspirin 81 mg Tablet,Chewable 81 mg PO BREAKFAST Qty: 0 0RF vancomycin 125 mg capsule 125 mg PO Q6H Qty: 52 0RF Continued cephalexin 500 mg capsule 500 mg PO TID Qty: 14 0RF acyclovir 200 mg Capsule 400 mg PO TID 3 Days Qty: 20 0RF Referrals / Follow Up: Frank Salinas MD [Primary Care Provider] - See Referral Note (as scheduled) Disposition Disposition (needs filled in before D/C Order can be placed): Home, Self Care Charges/Coding Visit Charges Inpatient E&M: 78023 Disch Hosp >30min
[2022-12-22 15:33] VITALS: BMI 37.8
[2022-12-23 12:55] LABS: Pathologist Review Reviewed
[2022-12-23 12:57] LABS: Pathologist Review Reviewed
== END 2022-12-22 13:42 | disposition home or self-care (01) | DRG 372 ==
LOC: ED 23:17 → PCU 12-21 00:38
PROVIDERS: Admitting Provider Hospitalist; Emergency Provider Emergency Medicine; PCP Family Medicine; Visit Provider Internal Medicine
DX: A04.72 Enterocolitis due to Clostridium difficile, not specified as recurrent (principal); L03.116 Cellulitis of left lower limb; G93.40 Encephalopathy, unspecified; N39.0 Urinary tract infection, site not specified; E87.6 Hypokalemia; Z68.37 Body mass index [BMI] 37.0-37.9, adult; B95.5 Unspecified streptococcus as the cause of diseases classified elsewhere; E66.9 Obesity, unspecified; R03.0 Elevated blood-pressure reading, without diagnosis of hypertension; Z86.73 Personal history of transient ischemic attack (TIA), and cerebral infarction without residual deficits
CPT/HCPCS: 36415; 70450; 70496; 70498; 70551; 71045; 80048; 80053; 80061; 81001; 83605; 85025; 85610; 85730; 87040; 87086; 87493; 93005; 97162; 97165; 99285; J7030; Q9967; A4216

== ENCOUNTER → 2022-12-23 | Outpatient (CLI) | payer MEDICARE, SELFPAY ==
--- NOTE | 2022-12-23 15:15 | VDLE_ITS ---
Reason For Study: Left leg swelling, cellulitis Procedure LEFT This is a venous duplex using B-mode, color GSV is normal. flow and spectral Doppler. CFV is compressible, spontaneous, phasic, Exam performed in department. competent, and demonstrates normal A preliminary report was called and/or faxed augmentation. to [facility]. FV is compressible, spontaneous, phasic, competent and demonstrates normal augmentation. POP V is compressible, spontaneous, phasic, competent and demonstrates normal augmentation. T/P Trunk is compressible. PTV is compressible. LT PerV is compressible. Vascularized structure noted in the left groin the measures 1.06 x 1.87 x 2.75 cm. Nonvascularized structure noted in the left popliteal fosssa that measures 1.75 x 3.86 cm. VL/Venous Duplex US, Unilateral Interpretation Summary There is no evidence of left lower extremity deep vein thrombosis. Left great s aphenous vein appears patent and compressible segmentally. Left groin 1.06 x 1.87 x 2.75 cm structure with vascular flow consistent with a lymph node. Clinical correlation would be appropriate Left popliteal space 1.75 x 3.86 cm nonvascular hypoechoic structure consistent with a Miles's cyst. Clinical correlation would be appropriate Ordering Physician: Lara Hoffman Referring Physician: Frank Salinas Performed By: Taina Zuleta RVT
== END | disposition home or self-care (01) ==
LOC: CVS 15:14
PROVIDERS: PCP Family Medicine; Referring Provider Physician Assistant; Visit Provider Physician Assistant
DX: M79.89 Other specified soft tissue disorders (principal); L03.90 Cellulitis, unspecified
CPT/HCPCS: 93971

== ENCOUNTER 2023-01-22 09:30 | Outpatient (RCR) | payer MEDICARE, SELFPAY ==
[2023-01-01 09:27] VITALS: BP 136/73; PULSE 79; RESP 18; TEMP 36.6
--- NOTE | 2023-01-01 12:00 | PCM.WC.HP ---
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 Has had a bout of C. difficile and is still finishing up her vancomycin and the also put her on cephalexin for the cellulitis. The posterior leg is scabbed of Yellow slough dried. The left leg is swollen erythematous and very tender to palpate. Patient is not diabetic or on blood thinners is actually very active and healthy. [facility] Medical History CEASAR (acute kidney injury) Cerebellar stroke HTN (hypertension) Left leg cellulitis Leukocytosis Home Medications acyclovir 200 mg capsule 400 mg (2 x 200 mg) PO TID 3 days #20 caps 12/17/22 [Rx Last Taken Unknown] cephalexin 500 mg capsule 500 mg PO TID #14 caps 12/17/22 [Rx Last Taken Unknown] aspirin 81 mg chewable tablet 81 mg PO BREAKFAST #0 tabs 12/22/22 [Rx Last Taken Unknown] vancomycin 125 mg capsule 125 mg PO Q6H #52 caps 12/22/22 [Rx Last Taken Unknown] Allergy/AdvReac Type Severity Reaction Status Date / Time fexofenadine [From Mar] Allergy Hives Verified 12/20/22 21:39 Family History Other Cancer Surgical History H/O vein stripping Social History household members: spouse Smoking Status: Never smoker substance use type: does not use ROS Constitutional Constitutional: Reports systems reviewed and no addt'l complaints, except as documented Eyes Eyes: Reports systems reviewed and no addt'l complaints, except as documented ENT HEENT: Reports systems reviewed and no addt'l complaints, except as documented Cardiovascular Cardiovascular: Reports systems reviewed and no addt'l complaints, except as documented Respiratory/Chest Respiratory/Chest: Reports systems reviewed and no addt'l complaints, except as documented Gastrointestinal Gastrointestinal: Reports systems reviewed and no addt'l complaints, except as documented Genitourinary Genitourinary: Reports systems reviewed and no addt'l complaints, except as documented Musculoskeletal Musculoskeletal: Reports systems reviewed and no addt'l complaints, except as documented Integumentary Integumentary: Reports wounds and other Details: Cellulitis of the left lower leg with some hardened skin and posterior old dried slough on the back of her leg. She also has edema Neurologic Neurologic: Reports systems reviewed and no addt'l complaints, except as documented Psychiatric Psychiatric: Reports systems reviewed and no addt'l complaints, except as documented Endocrine Endocrinology: Reports systems reviewed and no addt'l complaints, except as documented Hematologic/Lymphatic Hematologic/Lymphatic: Reports systems reviewed and no addt'l complaints, except as documented Allergic/Immunologic Allergic/Immunologic: Reports systems reviewed and no addt'l complaints, except as documented Vital Signs Vital Signs Vital Signs: 01/01/23 09:27 Temperature 97.9 F Temperature Source Temporal Pulse Rate 79 Respiratory Rate 18 Blood Pressure 136/73 H Blood Pressure Mean 94 Blood Pressure Source Monitor Blood Pressure Position Semi-Fowlers Blood Pressure Location Left Arm Physical Exam Const oriented x3 General Appearance: cooperative Exam Limitations: no limitations HEENT normocephalic Eyes PERRL Neck full ROM Resp normal respiratory effort Effort and Inspection: able to speak in complete sentences Auscultation: clear to auscultation bilaterally Cardio regular rate and regular rhythm Palpation: normal PMI Rate: regular rate Rhythm: regular rhythm GI Palpation: soft and no hepatosplenomegaly Extremity no calf tenderness; Negative for normal to inspection, no joint enlargement or no pedal edema Extremity Narrative: Hardened yellow slough on the back of her leg. Edema hardened erythemic skin on the anterior part of her lower extremity. Tender to palpate Skin General Skin Exam: Negative for no breakdown Lesions: no lesions Rashes: rashes noted Neuro oriented x3 Psych Appearance: grossly normal Speech: normal speech Thought Content: normal thought content Judgement: judgement good Debridement Note Debridement Note Wound debrided: Left lower leg open wound nonpressure Laterality: Left Type of Debridement: Excisional debridement Anesthesia Used: 5% Lidocaine Gel Depth: Down to and including healthy tissue Percentage of wound debrided: 100 Instrument Used: 7mm curette Tissue Removed: Slough Severity: Limited To Skin Breakdown Amount of bleeding with debridement: Mild Bleeding Controlled with: Compression and gauze Patient tolerated procedure: Patient tolerated procedure well Post-Debridement Measurements and Additional Note: Post-Debridement Measurements/Treatment - Nurse 1 - General Ulcer Assessment Start: 01/01/23 09:27 Freq: Status: Active Protocol: DANE Activity Type Activity Date Activity User E-sign Co-sign Detail Recorded Client Recorded Date Recorded By Document 01/01/23 09:27 [id number] 01/01/23 09:36 RB 01/01/23 09:27 - Today's Visit Information Type of service Follow-up Visit (Physician/ADMINISTRATIVE MEDICAL DIRECTOR ) Arrival Mode Ambulatory Transfer Assistance None Patient Identification Verified (Name & Yes ) Patient Requires Transmission-Based No Precautions Vital Signs Temperature (97.8 F-99.1 F) 97.9 F Temperature Source Temporal Pulse Rate (60-100) 79 Pulse Location Monitor Respiratory Rate (12-18) 18 Respiratory rate source Observation Blood Pressure (90/60-120/80) 136/73 H Blood Pressure Mean 94 Source Monitor Position Semi-Fowlers Blood Pressure Location Left Arm Pain Scale: 0-10 Numeric Is Patient Pain Free? No LLE -Description Throbbing -Intensity 2 -Duration (hours) Acute -Pain Behavior Withdrawal from Touch -Pain Aggravating Factors ADL's -Alleviating Factors/Interventions Medication -Effectiveness of Alleviating Factor/ Moderately Intervention effective Lower Extremity Assessment/ Foot Assessment/ Toe Nail Assessment Right -Posterior Tibial Palpable Yes -Dorsalis Pedis Palpable Yes -Extremity Color Normal -Hair Growth on Legs Yes -Hair Growth on Toes No -Temperature of Extremity Warm -Capillary Refill Greater than 3 Seconds -Dependent Rubor No -Blanched when Elevated No -Lipodermatosclerosis No -Other Deformity No -Prior Foot Ulcer No -Charcot Joint No -Prior Amputation No -Thick No -Discolored No -Deformed No -Improper Length & Hygeine Yes Left -Posterior Tibial Palpable Yes -Dorsalis Pedis Palpable Yes -Extremity Color Red, Hyperpigmented, Hemosiderin -Hair Growth on Legs No -Hair Growth on Toes No -Temperature of Extremity Hot -Capillary Refill Greater than 3 Seconds -Dependent Rubor No -Blanched when Elevated No -Lipodermatosclerosis No -Other Deformity No -Prior Foot Ulcer No -Charcot Joint No -Prior Amputation No -Thick No -Discolored No -Deformed No -Improper Length & Hygeine Yes Neuropathy Assessment Feet - Top Side and Bottom <Entered> (a) Communication Assessment Preferred language [place] Automated Access Systems Technician Required No Able to Read Yes Able to Write Yes Communication Tools None Caregiver Communication Skills No Impairment Impairment Right Hearing Abillity Normal Left Hearing Abillity Normal Visual Assistive Devices None Teaching Assessment Preferences Verbal,Written, Demonstration Barriers to Learning None Readiness To Learn Excellent Willingness to Engage in Self Management High Activies Readiness to Engage in Self Management High Activities Anxiety Level Calm Cooperation Cooperative Perception Coherent Interest in Health Problem Asks Questions Education Importance Acknowledges Need Does Patient Smoke tobacco or other No substances Smoking Status Never smoker Is Patient Diabetic No Functional Assessment Recent Decline in Ability to Perform Denies Any Declines Assistive Device With Patient No Culture/Congregational/Application Processor Cultural/Congregational Needs that may affect No Treatment Plan Would you allow our [facility] stock order lister to No meet you for the purpose of spiritual/ emotional support? Application Processor to contact place of druze No Teaching: Wound Center *Welcome to the Wound Center -Person Taught Patient,Family -Teaching Method Discussion -Response to teaching Verbalize understanding (a) 1 - + throughout WC - Nurse 1 - General Ulcer Measurement Start: 01/01/23 09:27 Freq: Status: Active Protocol: Activity Type Activity Date Activity User E-sign Co-sign Detail Recorded Client Recorded Date Recorded By Document 01/01/23 09:27 RB [id number] 01/01/23 09:36 RB 01/01/23 09:27 Wound Center Nurse 1 1. LLE posterior -Combined with other wound No -Current Size (cm) - Length 7 -Current Size (cm) - Width 3 -Current Size (cm) - Depth 0.1 -Total Square Cm 21 -Photo Taken Yes -Tunneling No -Undermining/Tunneling No -Circular Undermining No -Exudate Amt Medium -Exudate Type Serosanguineous -Wound Margin Distinct, Outline Attached -Granulation Amt Medium (34-66%) -Granulation Quality [place] -Slough/Fibrin Yes -Necrosis Amt Medium (34-66%) -Necrotic Tissue Type Adherent Slough -Structure Exposed N/A -Texture (Sharon-wound Skin Appearance) Assessed, Localized Edema -Moisture (Sharon-wound Skin Appearance) Assessed -Color (Sharon-wound Skin Appearance) Assessed -Temperature (Sharon-wound Skin No Abnormality Appearance) (Pt Warm) -Tenderness on Palpation (Sharon-wound No Skin Appearance) -Ulcer Cleansing Wound Cleanser -Foul Odor after Cleansing No -Anesthetic Used 4% Lidocaine Solution,5% Lidocaine Gel Lower Limb Edema Present Yes Right Calf (cm) 46.2 Right Ankle (cm) 24.5 Left Calf (cm) 44 Left Ankle (cm) 22 WC - Nurse 2 - General Ulcer CM Notes Start: 01/01/23 09:27 Freq: Status: Active Protocol: Activity Type Activity Date Activity User E-sign Co-sign Detail Recorded Client Recorded Date Recorded By Document 01/01/23 09:50 MW [id number] 01/01/23 09:56 MW 01/01/23 09:50 Wound Center Nurse 2 1. LLE posterior -Time 09:51 -Correct Patient Yes -Correct Side, Site, Position Yes -Correct Procedure Yes -Procedure Performed Yes -Type of Procedure Debridement -Clinical Debridement Subcutaneous -Tissue Removed Subcutaneous -Post Debridement (cm) - Length 8.0 -Post Debridement (cm) - Width 2.5 -Post Debridement (cm) - Depth 0.1 -Total Square (Post) (cm) 20.00 -Area of Debridement (cm) - Length 8.0 -Area of Debridement (cm) - Width 2.5 -Total Square (Area) (cm) 20.00 -Tunneling No -Undermining/Tunneling No -Circular Undermining No -Wound/Ulcer Outcome Not Healed -Ulcer Cleansing Rinsed/ Irrigated with Saline -Foul Odor after Cleansing No -Bioengineered Tissue No -Bleeding Controlled with Pressure -Treatment Response Procedure Tolerated Well -Offloading No -Debridement - Subq, 1st 20sq cm Yes Pain Scale: 0-10 Numeric Is Patient Pain Free? Yes - Nurse 3 - General Ulcer D/C NN Start: 01/01/23 09:27 Freq: Status: Active Protocol: Activity Type Activity Date Activity User E-sign Co-sign Detail Recorded Client Recorded Date Recorded By Document 01/01/23 10:12 [facility] [id number] 01/01/23 10:13 BM 01/01/23 10:12 Wound Care Center Nurse 3 1. LLE posterior -Ulcer Cleansing Rinsed/ Irrigated with Saline -Foul Odor after Cleansing No -Primary Dressing Applied NonAdherent Contact Layer -Primary Dressing Covered/Secured with Dry Gauze & Roll Gauze, Secured with Tape Left -Tubular Bandage Double Layer -Size of Tubigrip Used Size E -Size E ($) 1 Treatment Response Procedure Tolerated Well Pain Scale: 0-10 Numeric Is Patient Pain Free? Yes WC - Visit Discharge Discharge Condition Stable Ambulatory Status Ambulatory Transportation Private Auto Assessment/Plan Assessment/Plan (1) Left leg cellulitis: CODE(S): L03.116 - Cellulitis of left lower limb (2) Traumatic open wound of lower leg with infection: CODE(S): S81.809A - Unspecified open wound, unspecified lower leg, initial encounter; L08.9 - Local infection of the skin and subcutaneous tissue, unspecified QUALIFIERS: Encounter type: initial encounter Laterality: left Qualified Code(s): S81.802A - Unspecified open wound, left lower leg, initial encounter; L08.9 - Local infection of the skin and subcutaneous tissue, unspecified PLAN: Wash with antibacterial soap and water apply Xeroform dressing covered with Adaptic gauze and Tashi. Apply double layer Tubigrip to lower leg and follow-up in 1 week We will call with culture results (3) Edema of both lower legs: CODE(S): R60.0 - Localized edema
[2023-01-08 10:37] VITALS: BP 134/80; PULSE 77; RESP 20; TEMP 36.1
--- NOTE | 2023-01-08 12:47 | PCM.WC.PN ---
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 Has had a bout of C. difficile and is still finishing up her vancomycin and the also put her on cephalexin for the cellulitis. The posterior leg is scabbed of Yellow slough dried. The left leg is swollen erythematous and very tender to palpate. Patient is not diabetic or on blood thinners is actually very active and healthy. Progress of Wound: So today the posterior left lower leg is practically healed still gets a thin crusting of yellow we will continue using the Xeroform. The concern is that she still has a lot of pain in her left leg and it still very erythematous mostly the pain starts on the dior underneath the knee and goes straight down the front of the leg where the wound is in the posterior there is not really an opening but she is very erythematous. She also has a very swollen calf area and then a very small ankle area. She has not had venous arterial studies done since 2012 we are going to repeat those today and follow-up and see if she needs a vascular I do not know what else that would be causing the redness unless that there is a blockage in her venous structure that is pooling the blood there that is causing the cellulitis also. Patient is to continue wearing the double layer Tubigrip for compression Subjective Subjective So patient is going out of town for a week and we said that would be okay if we follow her up in 2 weeks she was taking a vacation she is basically almost healed anyways it is just figuring out why she still has the redness and pain in her left lower leg. Objective Data Objective Data As stated above small small area of superficial opening on the posterior left lower leg that the Xeroform should take care of in the next week or so. Also get her scheduled for a arterial brachial study done that should help with determining what is causing the swelling the redness and the pain that she is having in her left lower leg. The pain is not from the wound. Vital Signs: Vital Signs Temp Pulse Resp BP 97.0 F L 77 20 H 134/80 H 01/08/23 10:37 01/08/23 10:37 01/08/23 10:37 01/08/23 10:37 Lab / Micro Data Attestation: I reviewed the patient's lab results. Micro: Microbiology 01/01/23 10:00 Wound - Leg, Left Gram Stain - Final 01/01/23 10:00 Wound - Leg, Left Wound Culture - Final Enterococcus faecalis Staphylococcus haemolyticus 01/01/23 10:00 Wound - Leg, Left Anaerobic Culture - Final No anaerobic bacteria isolated. Physical Exam Const oriented x3 General Appearance: cooperative Exam Limitations: no limitations HEENT normocephalic Eyes PERRL Neck full ROM Resp normal respiratory effort Effort and Inspection: able to speak in complete sentences Auscultation: clear to auscultation bilaterally Cardio regular rate and regular rhythm Palpation: normal PMI Rate: regular rate Rhythm: regular rhythm GI Palpation: soft and no hepatosplenomegaly Extremity no calf tenderness; Negative for normal to inspection, no joint enlargement or no pedal edema Extremity Narrative: Hardened yellow slough on the back of her leg. Edema hardened erythemic skin on the anterior part of her lower extremity. Tender to palpate Skin General Skin Exam: Negative for no breakdown Lesions: no lesions Rashes: rashes noted Neuro oriented x3 Psych Appearance: grossly normal Speech: normal speech Thought Content: normal thought content Judgement: judgement good Debridement Note Debridement Note Wound debrided: Left lower posterior leg open wound nonhealing superficial probably more ve Type of Debridement: Excisional debridement Anesthesia Used: 5% Lidocaine Gel Depth: Down to and including healthy tissue Percentage of wound debrided: 100 Instrument Used: 7mm curette Tissue Removed: Slough and fibrin Severity: Limited To Skin Breakdown Amount of bleeding with debridement: None Bleeding Controlled with: Compression and gauze Patient tolerated procedure: Patient tolerated procedure well Post-Debridement Measurements and Additional Note: Post-Debridement Measurements/Treatment CITLALLI - Nurse 1 - General Ulcer Assessment Start: 01/01/23 09:27 Freq: Status: Active Protocol: DANE Activity Type Activity Date Activity User E-sign Co-sign Detail Recorded Client Recorded Date Recorded By Document 01/01/23 09:27 RB [id number] 01/01/23 09:36 RB Document 01/08/23 10:37 DL [id number] 01/08/23 10:46 DL 01/01/23 01/08/23 09:27 10:37 - Today's Visit Information Type of service Follow-up Visit Follow-up Visit (Physician/CONVERTER SUPERVISOR (Physician/CONVERTER SUPERVISOR ) ) Arrival Mode Ambulatory Ambulatory Transfer Assistance None None Patient Identification Verified (Name & Yes Yes ) Patient Requires Transmission-Based No No Precautions Vital Signs Temperature (97.8 F-99.1 F) 97.9 F 97.0 F L Temperature Source Temporal Temporal Pulse Rate (60-100) 79 77 Pulse Location Monitor Monitor Respiratory Rate (12-18) 18 20 H Respiratory rate source Observation Observation Blood Pressure (90/60-120/80) 136/73 H 134/80 H Blood Pressure Mean (mm Hg) 94 98 Source Monitor Monitor Position Semi-Fowlers Blood Pressure Location Left Arm History Since Last Visit- (Skip if this is Patient's initial visit) Have you changed medications since your No last visit? Any new allergies or adverse reactions No Had a fall/change in ADL's that may No increase risk of falls Signs or symptoms of abuse and/or No neglect since last visit Have you been in the hospital since your No last visit? Has dressing in place as prescribed Yes Has compression in place as prescribed No Has offloadiing in place as prescribed N/A Experienced any changes in pain level or No management Pain Scale: 0-10 Numeric Is Patient Pain Free? No Yes LLE -Description Throbbing -Intensity 2 -Duration (hours) Acute -Pain Behavior Withdrawal from Touch -Pain Aggravating Factors ADL's -Alleviating Factors/Interventions Medication -Effectiveness of Alleviating Factor/ Moderately Intervention effective Lower Extremity Assessment/ Foot Assessment/ Toe Nail Assessment Right -Posterior Tibial Palpable Yes -Dorsalis Pedis Palpable Yes -Extremity Color Normal -Hair Growth on Legs Yes -Hair Growth on Toes No -Temperature of Extremity Warm -Capillary Refill Greater than 3 Seconds -Dependent Rubor No -Blanched when Elevated No -Lipodermatosclerosis No -Other Deformity No -Prior Foot Ulcer No -Charcot Joint No -Prior Amputation No -Thick No -Discolored No -Deformed No -Improper Length & Hygeine Yes Left -Posterior Tibial Palpable Yes -Dorsalis Pedis Palpable Yes -Extremity Color Red, Hyperpigmented, Hemosiderin -Hair Growth on Legs No -Hair Growth on Toes No -Temperature of Extremity Hot -Capillary Refill Greater than 3 Seconds -Dependent Rubor No -Blanched when Elevated No -Lipodermatosclerosis No -Other Deformity No -Prior Foot Ulcer No -Charcot Joint No -Prior Amputation No -Thick No -Discolored No -Deformed No -Improper Length & Hygeine Yes Neuropathy Assessment Feet - Top Side and Bottom <Entered> (a) Communication Assessment Preferred language [place] Health Promoter Required No Able to Read Yes Able to Write Yes Communication Tools None Caregiver Communication Skills No Impairment Impairment Right Hearing Abillity Normal Left Hearing Abillity Normal Visual Assistive Devices None Teaching Assessment Preferences Verbal,Written, Demonstration Barriers to Learning None Readiness To Learn Excellent Willingness to Engage in Self Management High Activies Readiness to Engage in Self Management High Activities Anxiety Level Calm Cooperation Cooperative Perception Coherent Interest in Health Problem Asks Questions Education Importance Acknowledges Need Does Patient Smoke tobacco or other No substances Smoking Status Never smoker Is Patient Diabetic No Functional Assessment Recent Decline in Ability to Perform Denies Any Declines Assistive Device With Patient No Culture/Taoism/Volleyball Referee Cultural/Taoism Needs that may affect No Treatment Plan Would you allow our hospital fur pointer to No meet you for the purpose of spiritual/ emotional support? Volleyball Referee to contact place of hindu No Teaching: Wound Center *Welcome to the Wound Center -Person Taught Patient,Family -Teaching Method Discussion -Response to teaching Verbalize understanding (a) 1 - + throughout WC - Nurse 1 - General Ulcer Measurement Start: 01/01/23 09:27 Freq: Status: Active Protocol: Activity Type Activity Date Activity User E-sign Co-sign Detail Recorded Client Recorded Date Recorded By Document 01/01/23 09:27 RB [id number] 01/01/23 09:36 RB Document 01/08/23 10:37 DL [id number] 01/08/23 10:46 DL 01/01/23 01/08/23 09:27 10:37 Wound Center Nurse 1 1. LLE posterior -Combined with other wound No -Current Size (cm) - Length 7 2.2 -Current Size (cm) - Width 3 1.5 -Current Size (cm) - Depth 0.1 0.1 -Total Square Cm 21 3.30 -Photo Taken Yes -Tunneling No -Undermining/Tunneling No -Circular Undermining No -Exudate Amt Medium Medium -Exudate Type Serosanguineous Serosanguineous -Wound Margin Distinct, Indistinct, Non Outline -Visible Attached -Granulation Amt Medium (34-66%) Medium (34-66%) -Granulation Quality [place] -Slough/Fibrin Yes -Necrosis Amt Medium (34-66%) Medium (34-66%) -Necrotic Tissue Type Adherent Slough Adherent Slough -Structure Exposed N/A N/A -Texture (Sharon-wound Skin Appearance) Assessed, Scarring Localized Edema -Moisture (Sharon-wound Skin Appearance) Assessed Dry/Scaly -Color (Sharon-wound Skin Appearance) Assessed Erythema, Hemosiderin Staining -Temperature (Sharon-wound Skin No Abnormality No Abnormality Appearance) (Pt Warm) (Pt Warm) -Tenderness on Palpation (Sharon-wound No No Skin Appearance) -Ulcer Cleansing Wound Cleanser Soap and Water -Foul Odor after Cleansing No No -Anesthetic Used 4% Lidocaine 5% Lidocaine Solution,5% Gel Lidocaine Gel Lower Limb Edema Present Yes Right Calf (cm) 46.2 Right Ankle (cm) 24.5 Left Calf (cm) 44 44.5 Left Ankle (cm) 22 23.5 WC - Nurse 2 - General Ulcer CM Notes Start: 01/01/23 09:27 Freq: Status: Active Protocol: Activity Type Activity Date Activity User E-sign Co-sign Detail Recorded Client Recorded Date Recorded By Document 01/01/23 09:50 MW [id number] 01/01/23 09:56 MW Document 01/08/23 11:19 MW [id number] 01/08/23 11:24 MW 01/01/23 01/08/23 09:50 11:19 Wound Center Nurse 2 1Allegra LUNA posterior -Time 09:51 11:19 -Correct Patient Yes Yes -Correct Side, Site, Position Yes Yes -Correct Procedure Yes Yes -Procedure Performed Yes Yes -Type of Procedure Debridement Debridement -Clinical Debridement Subcutaneous Subcutaneous -Tissue Removed Subcutaneous Subcutaneous -Post Debridement (cm) - Length 8.0 4.0 -Post Debridement (cm) - Width 2.5 2.5 -Post Debridement (cm) - Depth 0.1 0.1 -Total Square (Post) (cm) 20.00 10.00 -Area of Debridement (cm) - Length 8.0 4.0 -Area of Debridement (cm) - Width 2.5 2.5 -Total Square (Area) (cm) 20.00 10.00 -Tunneling No No -Undermining/Tunneling No No -Circular Undermining No No -Wound/Ulcer Outcome Not Healed Not Healed -Ulcer Cleansing Rinsed/ Rinsed/ Irrigated with Irrigated with Saline Saline -Foul Odor after Cleansing No No -Bioengineered Tissue No No -Bleeding Controlled with Pressure Pressure -Treatment Response Procedure Procedure Tolerated Well Tolerated Well -Offloading No No -Debridement - Subq, 1st 20sq cm Yes Yes Pain Scale: 0-10 Numeric Is Patient Pain Free? Yes Yes - Nurse 3 - General Ulcer D/C NN Start: 01/01/23 09:27 Freq: Status: Active Protocol: Activity Type Activity Date Activity User E-sign Co-sign Detail Recorded Client Recorded Date Recorded By Document 01/01/23 10:12 [facility] [id number] 01/01/23 10:13 [facility] Document 01/08/23 11:40 DL [id number] 01/08/23 11:42 DL 01/01/23 01/08/23 10:12 11:40 Wound Care Center Nurse 3 1. LLE posterior -Ulcer Cleansing Rinsed/ Rinsed/ Irrigated with Irrigated with Saline Saline -Foul Odor after Cleansing No No -Primary Dressing Applied NonAdherent NonAdherent Contact Layer Contact Layer -Other Dressing xerofrom -Primary Dressing Covered/Secured with Dry Gauze & Dry Gauze & Roll Gauze, Roll Gauze, Secured with Secured with Tape Tape Left -Tubular Bandage Double Layer Double Layer -Size of Tubigrip Used Size E Size E -Size E ($) 1 2 Treatment Response Procedure Procedure Tolerated Well Tolerated Well Pain Scale: 0-10 Numeric Is Patient Pain Free? Yes Yes - Visit Discharge Discharge Condition Stable Stable Ambulatory Status Ambulatory Ambulatory Transportation Private Auto Private Auto Assessment/Plan Assessment/Plan (1) Left leg cellulitis: CODE(S): L03.116 - Cellulitis of left lower limb (2) Traumatic open wound of lower leg with infection: CODE(S): S81.809A - Unspecified open wound, unspecified lower leg, initial encounter; L08.9 - Local infection of the skin and subcutaneous tissue, unspecified QUALIFIERS: Encounter type: initial encounter Laterality: left Qualified Code(s): S81.802A - Unspecified open wound, left lower leg, initial encounter; L08.9 - Local infection of the skin and subcutaneous tissue, unspecified PLAN: Wash with antibacterial soap and water apply Xeroform dressing covered with Adaptic gauze and Tashi. Apply double layer Tubigrip to lower leg and follow-up in 2 week Cultures showed rare staph and no anaerobes patient was not treated with an antibiotic because she just finished antibiotic therapy from previous doctors. (3) Edema of both lower legs: CODE(S): R60.0 - Localized edema
--- NOTE | 2023-01-21 10:05 | ART_ITS ---
Reason For Study: LLE Wounds Procedure A bilateral lower extremity continuous wave Doppler with analog waveform analysis,segmental pressures,and ankle brachial indexes without exercise. Left Segmental Pressures Left brachial= 171mmHg. Left posterior tibial artery = 188mmHg. Left dorsalis pedis artery = 184mmHg. Left digit = 194 mmHg. The left posterior tibial artery waveforms are triphasic. The left dorsalis pedis waveforms are biphasic. Right Segmental Pressures Right brachial= 168mmHg. Right posterior tibial artery = 181mmHg. Right dorsalis pedis artery = 187mmHg. Right digit = 126 mmHg. The right posterior tibial artery waveforms are triphasic. The right dorsalis pedis waveforms are triphasic. Indices The right ankle brachial index by the posterior tibial artery is 1.06. The right ankle brachial index by the dorsalis pedis is 1.09. The right digital-brachial index is 0.74. The left ankle brachial index by the posterior tibial artery is 1.10. The left ankle brachial index by the dorsalis pedis is 1.08. The left digital-brachial index is 1.13. VL/Lower Ext Art Exam w/o Exercis Interpretation Summary Triphasic Doppler waveforms are noted at ankle level on the right. Triphasic an d biphasic Doppler waveforms are noted at ankle level on the left. Pulse-volume recordings appear diminished at ankle and digital levels on the right, but satisfactory at all other levels bilateral ly. Resting ankle- brachial indices are normal bilaterally. Digital-brachial indices are normal bi laterally. There is no evidence of significant arterial occlusive disease in the lower ext remities bilaterally. Ordering Physician: Melvi John Referring Physician: Frank Salinas Performed By: Fly Manning RVT
--- NOTE | 2023-01-21 10:06 | VDLE_ITS ---
Reason For Study: LLE Wounds RIGHT LEFT CFV is compressible, spontaneous, phasic, CFV is compressible, spontaneous, phasic, competent and demonstrates normal competent, and demonstrates normal augmentation. augmentation. FV is compressible, spontaneous, phasic, FV is compressible, spontaneous, phasic, competent and demonstrates normal competent and demonstrates normal augmentation. augmentation. POP V is compressible, spontaneous, phasic, POP V is compressible, spontaneous, phasic, competent and demonstrates normal competent and demonstrates normal augmentation. augmentation. T/P Trunk is compressible. T/P Trunk is compressible. PTV is compressible. PTV is compressible. RT PerV is compressible. LT PerV is compressible. SFJ is INCOMPETENT and measures 0.62 x 0.69 SFJ is competent and measures 0.74 x 0.81 cm. cm. GSV proximal thigh measures 0.48 x 0.51 cm. RT GSV has been ablated/stripped. GSV at knee measures 0.36 x 0.35 cm. ASV proximal thigh is INCOMPETENT for greater LT GSV has been ablated/stripped from prox than 0.5 seconds and measures 0.48 x 0.49 cm. thigh to knee. ASV mid thigh is INCOMPETENT for greater than GSV below knee is INCOMPETENT for greater 0.5 seconds and measures 0.47 x 0.53 cm. than 0.5 seconds. ASV at knee is INCOMPETENT for greater than SSV proximal calf is competent and measures 0.5 seconds and measures 0.44 x 0.49 cm. 0.30 x 0.35 cm. ASV proximal calf is INCOMPETENT for greater than 0.5 seconds and measures 0.30 x 0.30 cm. Vascularized structure noted in the left SSV proximal calf is competent and measures groin measuring approximately 1.24 x 1.75 x 0.26 x 0.27 cm. 2.97 cm. Procedure Nonvascularized structure noted in the left Exam performed in department. popliteal fosssa that measures approximately This is a venous duplex using B-mode, color 8.31 x 2.68 cm. flow and spectral Doppler. The exam was diagnostic. VL/Venous Duplex US - Balaji Extrem Interpretation Summary Deep veins of the lower extremities are bilaterally patent and compressible seg mentally. There is no evidence of deep vein thrombosis on either side. Valvular competence appears in tact within the proximal deep venous systems bilaterally. The right sapheno-femoral junction is incompetent . The left sapheno-femoral junction is competent . The right great saphenous vein has been previously stripped or ablated. The left great saphenous vein has been previously stripped or ablated above the knee, but is patent and incompetent below the knee. Small saphenous veins are p atent and competent bilaterally. Accessory saphenous veins in the right proximal thigh, mid-thigh, at the knee, and in the proximal calf are incompetent. A vascularized structure is noted in the lef t groin, measuring 1.24 cm x 1.75 cm x 2.97 cm. This may represent lymphadenopathy. Clinical corre lation is advised. A non-vascular, hypoechoic structure is noted in the left popliteal space, measur ing 8.31 cm x 2.68 cm. This may represent a popliteal cyst. Clinical correlation is advised. Ordering Physician: Melvi John Referring Physician: Xiomara Ramirez Performed By: Fly Manning RVT
[2023-01-22 09:33] VITALS: BP 165/83; PULSE 66; RESP 18; TEMP 36.1
--- NOTE | 2023-01-22 12:01 | PN.PCM_ITS ---
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 Has had a bout of C. difficile and is still finishing up her vancomycin and the also put her on cephalexin for the cellulitis. The posterior leg is scabbed of Yellow slough dried. The left leg is swollen erythematous and very tender to palpate. Patient is not diabetic or on blood thinners is actually very active and healthy. Progress of Wound: Today the wound on her left posterior leg is healed still has some redness we did do a arterial brachial studies done. Went over the results today with her. She does have a lot of obstruction in the right leg which is new and the like that was bothering her but the left leg at the [facility] area she has a lot of incompetency's and will need to be seen by vascular surgery again. She states that she had a done but it was over 10 years ago. Patient has not been good at wearing compression stockings to either. So patient will be discharged from the wound center referred to Dr. Kraus's for an appointment. Subjective Subjective Patient was very pleased with outcomes Objective Data Objective Data As written above all is healed patient will be discharged from the wound center follow-up as needed Vital Signs: Vital Signs Temp Pulse Resp BP 97 F L 66 18 165/83 H 01/22/23 09:33 01/22/23 09:33 01/22/23 09:33 01/22/23 09:33 Lab / Micro Data Micro: Microbiology 01/01/23 10:00 Wound - Leg, Left Gram Stain - Final 01/01/23 10:00 Wound - Leg, Left Wound Culture - Final Enterococcus faecalis Staphylococcus haemolyticus 01/01/23 10:00 Wound - Leg, Left Anaerobic Culture - Final No anaerobic bacteria isolated. Radiography Diagnostic Testing: Radiology Impression Extremity Arterial Study 01/21/23 10:05 Interpretation Summary Triphasic Doppler waveforms are noted at ankle level on the right. Triphasic and biphasic Doppler waveforms are noted at ankle level on the left. Pulse-volume recordings appear diminished at ankle and digital levels on the right, but satisfactory at all other levels bilaterally. Resting ankle- brachial indices are normal bilaterally. Digital-brachial indices are normal bilaterally. There is no evidence of significant arterial occlusive disease in the lower extremities bilaterally. Ordering Physician: Melvi John Referring Physician: Frank Salinas Performed By: Fly Manning RVT Venous Doppler Study 01/21/23 10:06 Interpretation Summary Deep veins of the lower extremities are bilaterally patent and compressible segmentally. There is no evidence of deep vein thrombosis on either side. Valvular competence appears intact within the proximal deep venous systems bilaterally. The right sapheno-femoral junction is incompetent . The left sapheno-femoral junction is competent . The right great saphenous vein has been previously stripped or ablated. The left great saphenous vein has been previously stripped or ablated above the knee, but is patent and incompetent below the knee. Small saphenous veins are patent and competent bilaterally. Accessory saphenous veins in the right proximal thigh, mid-thigh, at the knee, and in the proximal calf are incompetent. A vascularized structure is noted in the left groin, measuring 1.24 cm x 1.75 cm x 2.97 cm. This may represent lymphadenopathy. Clinical correlation is advised. A non-vascular, hypoechoic structure is noted in the left popliteal space, measuring 8.31 cm x 2.68 cm. This may represent a popliteal cyst. Clinical correlation is advised. Ordering Physician: Melvi John Referring Physician: Xiomara Ramirez Performed By: Fly Manning RVT Physical Exam Const oriented x3 General Appearance: cooperative Exam Limitations: no limitations HEENT normocephalic Eyes PERRL Neck full ROM Resp normal respiratory effort Effort and Inspection: able to speak in complete sentences Auscultation: clear to auscultation bilaterally Cardio regular rate and regular rhythm Palpation: normal PMI Rate: regular rate Rhythm: regular rhythm GI Palpation: soft and no hepatosplenomegaly Extremity no calf tenderness; Negative for normal to inspection, no joint enlargement or no pedal edema Extremity Narrative: Hardened yellow slough on the back of her leg. Edema hardened erythemic skin on the anterior part of her lower extremity. Tender to palpate Skin General Skin Exam: Negative for no breakdown Lesions: no lesions Rashes: rashes noted Neuro oriented x3 Psych Appearance: grossly normal Speech: normal speech Thought Content: normal thought content Judgement: judgement good Debridement Note Debridement Note No debridement was completed: No debridement was completed today Post-Debridement Measurements and Additional Note: Post-Debridement Measurements/Treatment - Nurse 1 - General Ulcer Assessment Start: 01/01/23 09:27 Freq: Status: Active Protocol: DANE Activity Type Activity Date Activity User E-sign Co-sign Detail Recorded Client Recorded Date Recorded By Document 01/01/23 09:27 RB [id number] 01/01/23 09:36 RB Document 01/08/23 10:37 DL [id number] 01/08/23 10:46 DL Document 01/22/23 09:33 RB [id number] 01/22/23 09:39 RB 01/01/23 01/08/23 01/22/23 09:27 10:37 09:33 - Today's Visit Information Type of service Follow-up Visit Follow-up Visit Follow-up Visit (Physician/SHOVEL ENGINEER (Physician/SHOVEL ENGINEER (Physician/SHOVEL ENGINEER ) ) ) Arrival Mode Ambulatory Ambulatory Ambulatory Transfer Assistance None None None Patient Identification Verified (Name & Yes Yes Yes ) Patient Requires Transmission-Based No No Precautions Vital Signs Temperature (97.8 F-99.1 F) 97.9 F 97.0 F L 97 F L Temperature Source Temporal Temporal Temporal Pulse Rate (60-100) 79 77 66 Pulse Location Monitor Monitor Monitor Respiratory Rate (12-18) 18 20 H 18 Respiratory rate source Observation Observation Observation Blood Pressure (90/60-120/80) 136/73 H 134/80 H 165/83 H Blood Pressure Mean (mm Hg) 94 98 110 Source Monitor Monitor Monitor Position Semi-Fowlers Semi-Fowlers Blood Pressure Location Left Arm Left Arm History Since Last Visit- (Skip if this is Patient's initial visit) Have you changed medications since your No No last visit? Any new allergies or adverse reactions No No Had a fall/change in ADL's that may No No increase risk of falls Signs or symptoms of abuse and/or No No neglect since last visit Have you been in the hospital since your No No last visit? Has dressing in place as prescribed Yes Yes Has compression in place as prescribed No No Has offloadiing in place as prescribed N/A No Experienced any changes in pain level or No No management Pain Scale: 0-10 Numeric Is Patient Pain Free? No Yes Yes LLE -Description Throbbing -Intensity 2 -Duration (hours) Acute -Pain Behavior Withdrawal from Touch -Pain Aggravating Factors ADL's -Alleviating Factors/Interventions Medication -Effectiveness of Alleviating Factor/ Moderately Intervention effective Lower Extremity Assessment/ Foot Assessment/ Toe Nail Assessment Right -Posterior Tibial Palpable Yes -Dorsalis Pedis Palpable Yes -Extremity Color Normal -Hair Growth on Legs Yes -Hair Growth on Toes No -Temperature of Extremity Warm -Capillary Refill Greater than 3 Seconds -Dependent Rubor No -Blanched when Elevated No -Lipodermatosclerosis No -Other Deformity No -Prior Foot Ulcer No -Charcot Joint No -Prior Amputation No -Thick No -Discolored No -Deformed No -Improper Length & Hygeine Yes Left -Posterior Tibial Palpable Yes -Dorsalis Pedis Palpable Yes -Extremity Color Red, Hyperpigmented, Hemosiderin -Hair Growth on Legs No -Hair Growth on Toes No -Temperature of Extremity Hot -Capillary Refill Greater than 3 Seconds -Dependent Rubor No -Blanched when Elevated No -Lipodermatosclerosis No -Other Deformity No -Prior Foot Ulcer No -Charcot Joint No -Prior Amputation No -Thick No -Discolored No -Deformed No -Improper Length & Hygeine Yes Neuropathy Assessment Feet - Top Side and Bottom <Entered> (a) Communication Assessment Preferred language Slovenian Cash Applications Coordinator Required No Able to Read Yes Able to Write Yes Communication Tools None Caregiver Communication Skills No Impairment Impairment Right Hearing Abillity Normal Left Hearing Abillity Normal Visual Assistive Devices None Teaching Assessment Preferences Verbal,Written, Demonstration Barriers to Learning None Readiness To Learn Excellent Willingness to Engage in Self Management High Activies Readiness to Engage in Self Management High Activities Anxiety Level Calm Cooperation Cooperative Perception Coherent Interest in Health Problem Asks Questions Education Importance Acknowledges Need Does Patient Smoke tobacco or other No substances Smoking Status Never smoker Is Patient Diabetic No Functional Assessment Recent Decline in Ability to Perform Denies Any Declines Assistive Device With Patient No Culture/Congregational/Oven Operator Automatic Cultural/Congregational Needs that may affect No Treatment Plan Would you allow our hospital laboratory sampler to No meet you for the purpose of spiritual/ emotional support? Oven Operator Automatic to contact place of yarsani No Teaching: Wound Center *Welcome to the Wound Center -Person Taught Patient,Family -Teaching Method Discussion -Response to teaching Verbalize understanding (a) 1 - + throughout WC - Nurse 1 - General Ulcer Measurement Start: 01/01/23 09:27 Freq: Status: Active Protocol: Activity Type Activity Date Activity User E-sign Co-sign Detail Recorded Client Recorded Date Recorded By Document 01/01/23 09:27 RB [id number] 01/01/23 09:36 RB Document 01/08/23 10:37 DL [id number] 01/08/23 10:46 DL Document 01/22/23 09:33 RB [id number] 01/22/23 09:39 RB 01/01/23 01/08/23 01/22/23 09:27 10:37 09:33 Wound Center Nurse 1 1. LLE posterior -Combined with other wound No -Current Size (cm) - Length 7 2.2 0 -Current Size (cm) - Width 3 1.5 0 -Current Size (cm) - Depth 0.1 0.1 0 -Total Square Cm 21 3.30 0 -Photo Taken Yes Yes -Epithelialization Large 67-100% -Tunneling No -Undermining/Tunneling No -Circular Undermining No -Exudate Amt Medium Medium -Exudate Type Serosanguineous Serosanguineous -Wound Margin Distinct, Indistinct, Non Outline -Visible Attached -Granulation Amt Medium (34-66%) Medium (34-66%) -Granulation Quality [place] -Slough/Fibrin Yes -Necrosis Amt Medium (34-66%) Medium (34-66%) -Necrotic Tissue Type Adherent Slough Adherent Slough -Structure Exposed N/A N/A -Texture (Sharon-wound Skin Appearance) Assessed, Scarring Localized Edema -Moisture (Sharon-wound Skin Appearance) Assessed Dry/Scaly -Color (Sharon-wound Skin Appearance) Assessed Erythema, Hemosiderin Staining -Temperature (Sharon-wound Skin No Abnormality No Abnormality Appearance) (Pt Warm) (Pt Warm) -Tenderness on Palpation (Sharon-wound No No Skin Appearance) -Ulcer Cleansing Wound Cleanser Soap and Water -Foul Odor after Cleansing No No -Anesthetic Used 4% Lidocaine 5% Lidocaine Solution,5% Gel Lidocaine Gel Lower Limb Edema Present Yes Right Calf (cm) 46.2 Right Ankle (cm) 24.5 Left Calf (cm) 44 44.5 Left Ankle (cm) 22 23.5 WC - Nurse 2 - General Ulcer CM Notes Start: 01/01/23 09:27 Freq: Status: Active Protocol: Activity Type Activity Date Activity User E-sign Co-sign Detail Recorded Client Recorded Date Recorded By Document 01/01/23 09:50 MW [id number] 01/01/23 09:56 MW Document 01/08/23 11:19 MW [id number] 01/08/23 11:24 MW Document 01/22/23 09:51 MW [id number] 01/22/23 09:55 MW 01/01/23 01/08/23 01/22/23 09:50 11:19 09:51 Wound Center Nurse 2 1. LLE posterior -Time 09:51 11:19 09:51 -Correct Patient Yes Yes Yes -Correct Side, Site, Position Yes Yes Yes -Correct Procedure Yes Yes Yes -Procedure Performed Yes Yes No -Type of Procedure Debridement Debridement -Clinical Debridement Subcutaneous Subcutaneous -Tissue Removed Subcutaneous Subcutaneous -Post Debridement (cm) - Length 8.0 4.0 -Post Debridement (cm) - Width 2.5 2.5 -Post Debridement (cm) - Depth 0.1 0.1 -Total Square (Post) (cm) 20.00 10.00 -Area of Debridement (cm) - Length 8.0 4.0 -Area of Debridement (cm) - Width 2.5 2.5 -Total Square (Area) (cm) 20.00 10.00 -Tunneling No No No -Undermining/Tunneling No No No -Circular Undermining No No No -Wound/Ulcer Outcome Not Healed Not Healed Healed- Epithelialized -Ulcer Cleansing Rinsed/ Rinsed/ Irrigated with Irrigated with Saline Saline -Foul Odor after Cleansing No No -Bioengineered Tissue No No -Bleeding Controlled with Pressure Pressure -Treatment Response Procedure Procedure Tolerated Well Tolerated Well -Offloading No No -Debridement - Subq, 1st 20sq cm Yes Yes Pain Scale: 0-10 Numeric Is Patient Pain Free? Yes Yes Yes - Nurse 3 - General Ulcer D/C NN Start: 01/01/23 09:27 Freq: Status: Active Protocol: Activity Type Activity Date Activity User E-sign Co-sign Detail Recorded Client Recorded Date Recorded By Document 01/01/23 10:12 [facility] [id number] 01/01/23 10:13 BM Document 01/08/23 11:40 DL [id number] 01/08/23 11:42 DL Document 01/22/23 09:55 MW [id number] 01/22/23 09:56 MW 01/01/23 01/08/23 01/22/23 10:12 11:40 09:55 Wound Care Center Nurse 3 1. LLE posterior -Ulcer Cleansing Rinsed/ Rinsed/ Irrigated with Irrigated with Saline Saline -Foul Odor after Cleansing No No -Primary Dressing Applied NonAdherent NonAdherent Contact Layer Contact Layer -Other Dressing xerofrom -Primary Dressing Covered/Secured with Dry Gauze & Dry Gauze & Roll Gauze, Roll Gauze, Secured with Secured with Tape Tape Left -Tubular Bandage Double Layer Double Layer -Size of Tubigrip Used Size E Size E -Size E ($) 1 2 Treatment Response Procedure Procedure Procedure Tolerated Well Tolerated Well Tolerated Well Pain Scale: 0-10 Numeric Is Patient Pain Free? Yes Yes Yes Teaching: Wound Center Discharge Instructions -Person Taught Patient -Teaching Method Discussion -Response to teaching Verbalize understanding WC - Visit Discharge Discharge Condition Stable Stable Stable Ambulatory Status Ambulatory Ambulatory Ambulatory Transportation Private Auto Private Auto Private Auto Accompanied by self Medication Reconcilliation completed & No provided to patient/care provider Clinical Summary of Care Provided Yes Assessment/Plan Assessment/Plan (1) Left leg cellulitis: CODE(S): L03.116 - Cellulitis of left lower limb (2) Traumatic open wound of lower leg with infection: CODE(S): S81.809A - Unspecified open wound, unspecified lower leg, initial encounter; L08.9 - Local infection of the skin and subcutaneous tissue, unspecified QUALIFIERS: Encounter type: initial encounter Laterality: left Qualified Code(s): S81.802A - Unspecified open wound, left lower leg, initial encounter; L08.9 - Local infection of the skin and subcutaneous tissue, unspec ified PLAN: Discharge from the wound center and follow-up as needed (3) Edema of both lower legs: CODE(S): R60.0 - Localized edema (4) Peripheral vascular insufficiency: CODE(S): I73.9 - Peripheral vascular disease, unspecified PLAN: Referred to Dr. Kraus for further evaluation of the insufficiency incompetency of the veins in her left leg and right leg
== END 2023-01-27 23:59 | disposition home or self-care (01) ==
LOC: WC 09:30
PROVIDERS: PCP Family Medicine; Referring Provider Internal Medicine; Visit Provider Nurse Practitioner
DX: L97.222 Non-pressure chronic ulcer of left calf with fat layer exposed (principal); I73.9 Peripheral vascular disease, unspecified; S81.802A Unspecified open wound, left lower leg, initial encounter; A04.72 Enterocolitis due to Clostridium difficile, not specified as recurrent; L03.116 Cellulitis of left lower limb; L08.9 Local infection of the skin and subcutaneous tissue, unspecified; R60.0 Localized edema; I10 Essential (primary) hypertension; Z79.82 Long term (current) use of aspirin; Z79.2 Long term (current) use of antibiotics; Z79.899 Other long term (current) drug therapy; Z86.73 Personal history of transient ischemic attack (TIA), and cerebral infarction without residual deficits; M79.89 Other specified soft tissue disorders
CPT/HCPCS: 11042; 87070; 87075; 87077; 87186; 87205; 93923; 93970; 99203; 99213; G0463

== ENCOUNTER 2023-02-21 08:53 | Emergency (ER) | payer MEDICARE, SELFPAY ==
[2023-02-21 08:55] VITALS: BP 181/96; PULSE 64; RESP 14; TEMP 36.6; O2SAT 98
[2023-02-21 10:12] LABS: Absolute Lymphocyte Count 1.53 X10^3/uL (0.83-4.51); Absolute Neutrophil Count 3.8 X10^3/uL (2.0-7.7); Basophil# 0.04 X10^3/uL; Basophil% 0.6 % (0-1); Eosinophil# 0.35 X10^3/uL; Eosinophils% 5.5 % (0-5); Hematocrit 43.3 % (37-47); Hemoglobin 13.3 g/dL (12.0-15.0); Lymphocyte # 1.53 X10^3/ul (0.83-4.51); Lymphocyte % 24.2 % (19-41); Mean Corp Hgb Conc 30.7 g/dL (32-36); Mean Corpuscular Hgb 26.4 pg (27.0-32.0); Mean Corpuscular Volume 85.9 fL (81-99); Mean Platelet Vol. 9.3 fl (6.2-12.0); Monocyte# 0.57 X10^3/uL; NRBC Flagged by Analyzer 0 % (0-5); Neutrophil # 3.82 X10^3/uL (2.7-7.7); Neutrophil % 60.4 % (47-70); Platelet Count 180 K/mm3 (150-450); RBC Distribution Width CV 14.3 % (11.6-14.6); RBC Distribution Width SD 44.8 fl (35.1-43.9); Red Blood Count 5.04 M/mm3 (4.2-5.4); White Blood Count 6.3 K/mm3 (4.4-11.0)
[2023-02-21] MEDS: Meclizine HCl 25 MG Tablet PO (10:26)
[2023-02-21] MEDS: Cefazolin 1 GM/50 ML BAG IV (10:27)
[2023-02-21 10:35] LABS: Lactic Acid 0.6 mmol/L (0.4-1.9)
[2023-02-21 10:36] LABS: ALB/GLOB Ratio 0.8 RATIO (0.9-2.4); AST(SGOT) 13 U/L (15-37); Alanine Aminotransfer ALT/SGPT 16 U/L (13-56); Albumin, Serum 3.3 g/dL (3.2-5.0); Alkaline Phosphatase 72 U/L (45-117); Anion Gap 1 (5-15); BUN 16 mg/dL (7-18); Calcium,Total 8.5 mg/dL (8.5-10.1); Chloride 111 mmol/L (98-107); Creatinine, Serum 1.07 mg/dL (0.55-1.02); EST Glomerular Filtration Rate 53 mL/min (>60); Est Glom Filt Rate - Afr Amer 64 mL/min (>60); Globulin 3.9 g/dL (2.2-4.2); Glucose 112 mg/dL (74-106); Potassium 4.2 mmol/L (3.5-5.1); Protein, Total 7.2 g/dL (6.4-8.2); Sodium Level 141 mmol/L (136-145)
[2023-02-21 10:42] VITALS: BMI 27.5
--- NOTE | 2023-02-21 11:43 | EX.ED.DYSGE1 ---
HPI History of Present Illness Chief Complaint: Cellulitis Informant: patient Narrative Narrative: Patient presents for several different problems. She had been admitted to the hospital for cellulitis of her left lower leg in November. She states the leg has been red and swollen since then, but in the last 2 days or more it has become gradually more red, swollen, painful. She states it looks and feels like the cellulitis she had before, but not as severe as it was then. In addition, she states the reason she came here this morning was that she felt dizzy when she got out of bed this morning, it felt like things were spinning. She did not feel lightheaded. She has had no fevers or chills lately. She states she associates the dizziness with having C. difficile in the past, as well as the cellulitis and that was the what prompted her to come here. She denies having any diarrhea recently. No fevers, chills, or other systemic symptoms. No recent injury to the leg. Later, she states that yesterday she felt like both of her ears were plugged like she went up in altitude but she was local here in town where she normally lives. She also recalls turning the TV up very loud because she was having trouble hearing it, and people around her were commenting about how loud she had it, which she states she would never realized otherwise. She denies any earache or tinnitus. No headache. No diplopia. No peripheral neurologic symptoms. [facility] Medical History CEASAR (acute kidney injury) Cerebellar stroke HTN (hypertension) Left leg cellulitis Leukocytosis Home Medications aspirin 81 mg chewable tablet 81 mg PO BREAKFAST #0 tabs 12/22/22 [Rx Last Taken Unknown] cephalexin 500 mg capsule 500 mg PO Q6 #40 CAPSULES 02/21/23 [Rx Last Taken Unknown] meclizine 25 mg tablet 25 mg PO Q6H PRN PRN Dizziness #20 tabs 02/21/23 [Rx Last Taken Unknown] Allergy/AdvReac Type Severity Reaction Status Date / Time fexofenadine [From Mar] Allergy Hives Verified 02/21/23 08:54 Family History Other Cancer Surgical History H/O vein stripping Social History household members: spouse Smoking Status: Never smoker substance use type: does not use ROS ROS ED Constitutional Constitutional ED: Denies chills or fever(s) Eyes Eyes: Denies blurry vision, change in vision or diplopia ENT ENT ED: Reports as per HPI and vertigo; Denies ear discharge, ear pain, hearing loss, rhinorrhea or sore throat Cardiovascular Cardiovascular: Denies chest pain or palpitations Respiratory/Chest Respiratory/Chest: Denies cough or dyspnea Gastrointestinal Gastrointestinal: Denies abdominal pain, diarrhea, melena, nausea or vomiting Genitourinary Genitourinary ED: Denies dysuria or hematuria Musculoskeletal Musculoskeletal: Reports extremity pain; Denies back pain or neck pain Integumentary Reports rash; Denies Abrasions or wounds Neurologic Neurologic: Denies paresthesias or weakness EXAM Physical Exam Const Vital Signs: 02/21/23 08:55 Temperature 98 F Temperature Source Temporal Pulse Rate 64 Respiratory Rate 14 Blood Pressure 181/96 H Blood Pressure Mean 124 Pulse Ox 98 Oxygen Delivery Method Room Air Positive well nourished, well developed and obese General Appearance ED: well developed and NAD Nutritional Appearance: obese HEENT Reports TM's clear and moist mucous membranes Negative for trauma or tenderness Tympanic Membrane ED: Yes TM's clear Eyes PERRL and EOMs intact bilaterally Eyes Narrative: No pathologic nystagmus Neck full ROM, no lymphadenopathy and supple Chest Wall inspection of chest normal and palpation of chest normal Resp normal respiratory effort and clear to auscultation bilaterally Cardio regular rate, regular rhythm and no murmurs Rate: Negative for tachycardic GI normal to inspection, nondistended, normoactive bowel sounds, non-tender and non-distended Back/Spine normal ROM and normal to inspection Extremity Extremity Narrative: Indurated tender warm arm erythema left lower leg, feathers out as a becomes more proximal, does not go all the way to the knee. Does not involve the foot of the ankle. Can move the ankle and the knee without difficulty. All compartments are soft and nondistended. The right lower leg is normal-appearing, there is significant asymmetry mostly with regards to the induration and erythema and warmth. There is not a lot of edema. No palpable cords. Neuro oriented x3, no focal motor deficits and no sensory deficits noted Sensorium / Orientation: alert Psych mental status grossly normal and thought process normal Skin no wounds Skin Narrative: Cellulitis without palpable abscess left lower leg, no lymphangitis. MDM MDM MDM Narrative Medical decision making narrative: This patient is in agreement that she has clinically worsening symptoms of the left lower extremity consistent with acute cellulitis, she states she wanted to come to the hospital and catch it while still early because she did not do that last time and became septic and required admission to the hospital for a while. I reviewed some of that chart. She is concerned about C. difficile, I discussed with her that if this had just been red and painful for a couple of hours I might continue watching it, but she agrees that it has been worsening for couple days and it is similar to what it was before so I recommend treating it, and doing what she can to prophylax against C. difficile, including probiotic, yogurt. She is amenable to that. She alerted me that the antibiotics she initially were on were broad-spectrum and then her antibiotic was narrowed after infectious disease evaluated her in her cultures. I reviewed this information, they put her on Ancef in the hospital prior to discharging her on cephalexin. I did that here as well which made her feel better I think this is appropriate treatment for what appears to be strep. She had negative blood cultures then, she does not have a leukocytosis or need for blood cultures to be obtained now. Of note I did a lactic acid as well to screen her for sepsis, it is well within normal limits at 0.6. Patient was also given instructions with regards to her vertigo which I feel is unrelated to these issues, she has Flonase at home we discussed using that and/or decongestants as needed. History & Record Review Additional record(s) reviewed:: Prior inpatient record and Prior outpatient record Lab Data Attestation: I reviewed the patient's lab results. Labs: Laboratory Results - last 24 hr 02/21/23 10:00 WBC 6.3 RBC 5.04 Hgb 13.3 Hct 43.3 MCV 85.9 MCH 26.4 L MCHC 30.7 L RDW Std Deviation 44.8 H RDW Coeff of Joya 14.3 Plt Count 180 MPV 9.3 Immature Gran % (Auto) 0.300 Neut % (Auto) 60.4 Lymph % (Auto) 24.2 [place] % (Auto) 9.0 Eos % (Auto) 5.5 H Baso % (Auto) 0.6 Absolute Neuts (auto) 3.8 Absolute Lymphs (auto) 1.53 Nucleated RBC % 0 Sodium 141 Potassium 4.2 Chloride 111 H Carbon Dioxide 29.0 Anion Gap 1 L BUN 16 Creatinine 1.07 H Est GFR (MDRD) Af Amer 64 Est GFR (MDRD) Non-Af 53 L BUN/Creatinine Ratio 15.0 Glucose 112 H Lactic Acid 0.6 Calcium 8.5 Total Bilirubin 0.50 AST 13 L ALT 16 Alkaline Phosphatase 72 Total Protein 7.2 Albumin 3.3 Globulin 3.9 Albumin/Globulin Ratio 0.8 L Discharge Plan Triage Chief Complaint: Cellulitis ED Provider: Jhonatan Luz Dx/Rx/DC Orders Clinical Impression: At risk for Clostridium difficile infection, Left leg cellulitis, Peripheral vertigo Instructions: Cellulitis Dc, C. Diff Prevent Infection Prescriptions: New meclizine [meclizine] 25 mg tablet 25 mg PO Q6H PRN PRN (Reason: Dizziness) Qty: 20 0RF cephalexin [cephalexin] 500 mg capsule 500 mg PO Q6 Qty: 40 0RF No Action aspirin 81 mg Tablet,Chewable 81 mg PO BREAKFAST Qty: 0 0RF Primary Care Provider: Frank Salinas Referrals: Frank Salinas MD [Primary Care Provider] - 5-7 Days Activity Restrictions/Additional Instructions: Eat yogurt and/or probiotic daily ask her pharmacist for recommendation to help prevent C. difficile. If you continue to have issues with hearing, you may treat eustachian tube dysfunction using Flonase 2 sprays inhaled each side once daily, for the next week or 2 and see if it helps. If you are having ear issues right now and you need to treat it, use a decongestant such as Sudafed or any other medication containing phenylephrine; be cautious, this can temporarily elevate your blood pressure. Also an as-needed decongestant nasal spray such as Afrin, can help quicker. Disposition Disposition: Home, Self Care
[2023-02-21 12:21] VITALS: BP 161/87; PULSE 87; RESP 16; O2SAT 98
== END 2023-02-21 12:41 | disposition home or self-care (01) ==
PROVIDERS: Emergency Provider Emergency Medicine; PCP Family Medicine; Visit Provider Emergency Medicine
DX: R42 Dizziness and giddiness (principal); I10 Essential (primary) hypertension; Z86.73 Personal history of transient ischemic attack (TIA), and cerebral infarction without residual deficits; Z79.82 Long term (current) use of aspirin; L03.116 Cellulitis of left lower limb; H81.399 Other peripheral vertigo, unspecified ear; Z86.19 Personal history of other infectious and parasitic diseases
CPT/HCPCS: 80053; 83605; 85025; 96365; 99282; J7050; A4216

== ENCOUNTER 2023-02-27 16:05 | Emergency (ER) | payer MEDICARE, SELFPAY ==
[2023-02-27 16:05] VITALS: BP 194/107; PULSE 100; RESP 16; TEMP 36.1; O2SAT 96
[2023-02-27 16:22] VITALS: BMI 36.6
--- NOTE | 2023-02-27 16:36 | CT_ITS ---
EXAM: CT ABDOMEN AND PELVIS WITH INTRAVENOUS CONTRAST CLINICAL INDICATION: abd pain TECHNIQUE: Helically acquired images were obtained of the abdomen and pelvis with intravenous contrast. This CT exam was performed using one or more of the following dose reduction techniques: automated exposure control, adjustment of the mA and/or kV according to patient size, and/or use of iterative reconstruction technique. CONTRAST: IV 100mL Isovue-300 COMPARISON: No relevant prior studies available. FINDINGS: LOWER THORAX: Unremarkable. Lung bases are clear. No cardiomegaly. No significant pericardial effusion. ABDOMEN: LIVER: Unremarkable. Homogeneous. No focal mass. GALLBLADDER AND BILE DUCTS: Unremarkable. No calcified gallstones. No gallbladder distention or wall edema. No intra- or extrahepatic biliary ductal dilation. PANCREAS: Unremarkable. No focal cystic or solid mass. SPLEEN: Unremarkable. Normal size without focal cystic or solid mass. ADRENALS: Unremarkable. No nodules. KIDNEYS AND URETERS: Unremarkable. Normal renal size and position. No hydronephrosis. STOMACH AND BOWEL: Unremarkable. No stomach or bowel distention. No focal inflammatory change. PELVIS: APPENDIX: No evidence of acute appendicitis. BLADDER: Unremarkable. REPRODUCTIVE: There is a 1.4 x 0.8 cm calcified mass in the uterus compatible with a fibroid. ABDOMEN and PELVIS: INTRAPERITONEAL SPACE: See below. BONES/JOINTS: Unremarkable. No suspicious lytic or blastic abnormality. SOFT TISSUES: Unremarkable. No discrete abdominal or pelvic wall hernia. VASCULATURE: Unremarkable. Abdominal aorta is non-dilated. LYMPH NODES: There is very minimal haziness in the mesentery with small lymph nodes which may represent mesenteric panniculitis. CT/Abdomen/Pelvis W IV Cont ONLY IMPRESSION: Minimal haziness with lymph nodes in the root of the mesentery which may represent mesenteric panniculitis. No other abnormalities are identified. Electronically Signed: Reese Alvarez MD at 17:46 EDT ,
--- NOTE | 2023-02-27 16:41 | EDS_ITS ---
HPI HPI - GI History of Present Illness Chief Complaint: Diarrhea Informant: patient Narrative Narrative: Patient is a 77-year-old female with history of C. difficile colitis after antibiotics for treatment of cellulitis of her left lower extremity in November of this year as well as hypertension and venous insufficiency of the bilateral lower extremities presenting with diarrhea, vomiting and concern for recurrent C. difficile infection. Patient was seen her a 5 days ago for worsening redness of her left lower extremity and was diagnosed with cellulitis. She was placed on Keflex. Today she has had multiple bowel movements that she describes as soft. She then went on to develop vomiting. She has some mild abdominal discomfort but not severe. She denies any black or blood in her stool. She has a hard time describing her stools but states they are not normal but also states they are not watery. She denies any urinary discomfort. She notes that her leg has improved but is still not right. She also states that her vertigo which she also was dealing with during her last ER visit has resolved. She denies any fever but is reporting chills. Denies any chest pain or difficulty breathing. No other complaints at this time. [facility] Medical History CEASAR (acute kidney injury) Cerebellar stroke HTN (hypertension) Left leg cellulitis Leukocytosis Home Medications aspirin 81 mg chewable tablet 81 mg PO BREAKFAST #0 tabs 12/22/22 [Rx Last Taken Unknown] cephalexin 500 mg capsule 500 mg PO Q6 #40 CAPSULES 02/21/23 [Rx Last Taken Unknown] meclizine 25 mg tablet 25 mg PO Q6H PRN PRN Dizziness #20 tabs 02/21/23 [Rx Last Taken Unknown] ondansetron 4 mg disintegrating tablet 4 mg PO Q6H PRN nausea and vomiting #20 tabs 02/27/23 [Rx Last Taken Unknown] vancomycin 125 mg capsule 125 mg PO Q6H 10 days #40 caps 02/27/23 [Rx Last Taken Unknown] Allergy/AdvReac Type Severity Reaction Status Date / Time fexofenadine [From Mar] Allergy Hives Verified 02/27/23 16:05 Family History Other Cancer Surgical History H/O vein stripping Social History household members: spouse housing: house Smoking Status: Never smoker substance use type: does not use ROS ROS ED Constitutional Constitutional ED: Reports chills; Denies fever(s) Cardiovascular Cardiovascular: Denies chest pain Respiratory/Chest Respiratory/Chest: Denies cough Gastrointestinal Gastrointestinal: Reports abdominal pain, diarrhea, nausea and vomiting Musculoskeletal Musculoskeletal: Denies arthralgias or myalgias Integumentary Reports rash Neurologic Neurologic: Denies headache(s) or weakness Hematologic/Lymphatic Hematologic/Lymphatic: Denies easy bleeding or easy bruising EXAM Physical Exam Const Vital Signs: 02/27/23 16:05 02/27/23 19:18 02/27/23 20:00 Temperature 97 F L Temperature Source Temporal Pulse Rate 100 Respiratory Rate 16 16 16 Blood Pressure 194/107 H Blood Pressure Mean 136 Pulse Ox 96 Positive well nourished and well developed General Appearance ED: well developed HEENT Reports moist mucous membranes Eyes PERRL Neck supple Resp normal respiratory effort and clear to auscultation bilaterally Cardio regular rate and regular rhythm GI non-tender and non-distended Auscultation: normoactive bowel sounds Palpation: soft; Negative for guarding or rigid Extremity Extremity Narrative: Mild asymmetric edema, nonpitting of the left lower extremity. Chronic venous stasis changes to the bilateral legs. Mild rubor to the left lower extremity but it does not appear to be acutely cellulitic at this time. No wounds or drainage appreciated. Compartments are soft. Neuro moves all extremities Sensorium / Orientation: alert Motor Exam: Negative for general weakness Psych mental status grossly normal and thought process normal Skin no wounds Lesions: no lesions Rashes: no rashes MDM MDM MDM Narrative Medical decision making narrative: Patient is evaluated for nausea, vomiting profuse diarrhea. Patient is quite concerned about C. difficile though she has a history of C. difficile and was pu t on antibiotics for cellulitis of her lower extremity about a week ago. Her leg seems to be improving. She does have some asymmetric edema I did obtain a venous duplex ultrasound which is negative for DVT. Patient is given IV fluids and IV Zofran. Lab work is significant for pretty profound leukocytosis of 23.4 compared to her white blood cell count of 6.31-week ago. She has a very mild elevation of her creatinine to 1.2 where her baseline is 0.9. Suspect she might have some associated dehydration but I do not think she has an CEASAR. Urinalysis shows some inflammatory changes with 500 leukocyte esterase but no white blood cells and no bacteria. I suspect this is more reactive from her diarrhea. CT of the abdomen pelvis is obtained which shows minimal haziness with the lymph nodes in the root of the mesentery which may represent mesenteric panniculitis but no other acute abnormality. I suspect patient has developed C. difficile colitis given her diarrhea, recent about exposure and now leukocytosis. She is afebrile and otherwise well-appearing. Stable tolerate p.o. Will be started back on oral vancomycin. Is given referral to infectious diseases for second bout of C. difficile. Patient is not able to provide a stool sample in the ER unfortunately but we will treat empirically. Given return precautions. Also given a prescription for Zofran to help with her nausea/vomiting. Discharged home in stable condition. Lab Data Attestation: I reviewed the patient's lab results. Labs: Laboratory Results - last 24 hr 02/27/23 02/27/23 16:43 18:30 WBC 23.4 H RBC 5.49 H Hgb 14.4 Hct 46.4 MCV 84.5 MCH 26.2 L MCHC 31.0 L RDW Std Deviation 44.0 H RDW Coeff of Joya 14.3 Plt Count 186 MPV 9.5 Immature Gran % (Auto) 0.500 Neut % (Auto) 86.6 H Lymph % (Auto) 5.1 L [place] % (Auto) 6.8 Eos % (Auto) 0.7 Baso % (Auto) 0.3 Absolute Neuts (auto) 20.3 H Absolute Lymphs (auto) 1.19 Nucleated RBC % 0 Differential Comment SCANNED Diff Path Review May foll Sodium 137 Potassium 3.8 Chloride 107 Carbon Dioxide 25.0 Anion Gap 5 BUN 16 Creatinine 1.20 H Estim Creat Clear Calc 36.45 Est GFR (MDRD) Af Amer 56 L Est GFR (MDRD) Non-Af 47 L BUN/Creatinine Ratio 13.3 Glucose 124 H Calcium 8.7 Total Bilirubin 0.60 AST 15 ALT 18 Alkaline Phosphatase 87 Total Protein 8.2 Albumin 3.6 Globulin 4.6 H Albumin/Globulin Ratio 0.8 L Lipase 25 Urine Color Yellow Urine Clarity Clear Urine pH 6.0 Ur Specific [place] 1.010 Urine Protein Negative Urine Glucose (UA) Normal Urine Ketones Negative Urine Occult Blood 150 H Urine Nitrite Negative Urine Bilirubin Negative Urine Urobilinogen Normal Ur Leukocyte Esterase 500 H Urine RBC 0-5 SEEN Urine WBC 0 SEEN Ur Squamous Epith Cells 0-5 SEEN Urine Bacteria 0 SEEN Urine Mucus 0 SEEN Radiography Diagnostic Testing: Clinical Impression(s) from Imaging Studies Abdomen/Pelvis CT 02/27/23 16:36 IMPRESSION: Minimal haziness with lymph nodes in the root of the mesentery which may represent mesenteric panniculitis. No other abnormalities are identified. Electronically Signed: Reese Alvarez MD at 17:46 EDT , Venous Duplex 02/27/23 16:53 IMPRESSION: No sonographic evidence of deep venous thrombosis. There is a left popliteal fossa cyst. Electronically Signed: Reese Alvarez MD at 17:33 EDT , Discharge Plan Triage Chief Complaint: Diarrhea ED Provider: Anamaria Manning Dx/Rx/DC Orders Clinical Impression: C. difficile colitis, Diarrhea, Leukocytosis Instructions: Clostridium Difficile Infection, ED Vomiting and Diarrhea ... Prescriptions: New ondansetron 4 mg tablet,disintegrating 4 mg PO Q6H PRN (Reason: nausea and vomiting) Qty: 20 0RF vancomycin 125 mg capsule 125 mg PO Q6H 10 Days Qty: 40 0RF No Action aspirin 81 mg Tablet,Chewable 81 mg PO BREAKFAST Qty: 0 0RF meclizine [meclizine] 25 mg tablet 25 mg PO Q6H PRN PRN (Reason: Dizziness) Qty: 20 0RF cephalexin [cephalexin] 500 mg capsule 500 mg PO Q6 Qty: 40 0RF Primary Care Provider: Frank Salinas Referrals: Frank Salinas MD [Primary Care Provider] - Saji Shah MD [Med Staff - Active Staff] - As soon as possible Activity Restrictions/Additional Instructions: We are not able to get an adequate stool sample today but given your acute elevation of your white blood cell count and diarrhea with recent antibiotics I will treat you for C. difficile. You been given referral to follow-up with infectious disease specialist. If your symptoms worsen please return to the emergency room. Try to keep yourself hydrated and drink plenty of fluids. Disposition Disposition: Home, Self Care Discharge Date/Time: 02/27/23 23:02
[2023-02-27] MEDS: 0.9% Normal Saline 1,000 ML 1000 ML IV (16:52)
[2023-02-27] MEDS: Ondansetron 4 MG/2 ML Vial IV (16:52)
[2023-02-27 16:53] LABS: Absolute Lymphocyte Count 1.19 X10^3/uL (0.83-4.51); Absolute Neutrophil Count 20.3 X10^3/uL (2.0-7.7); Basophil# 0.06 X10^3/uL; Basophil% 0.3 % (0-1); Eosinophil# 0.17 X10^3/uL; Eosinophils% 0.7 % (0-5); Hematocrit 46.4 % (37-47); Hemoglobin 14.4 g/dL (12.0-15.0); Lymphocyte # 1.19 X10^3/ul (0.83-4.51); Lymphocyte % 5.1 % (19-41); Mean Corpuscular Hgb 26.2 pg (27.0-32.0); Mean Corpuscular Volume 84.5 fL (81-99); Mean Platelet Vol. 9.5 fl (6.2-12.0); Monocyte# 1.58 X10^3/uL; Monocyte% 6.8 % (0-10); NRBC Flagged by Analyzer 0 % (0-5); Neutrophil # 20.27 X10^3/uL (2.7-7.7); Neutrophil % 86.6 % (47-70); POSITIVE DIFFERENTIAL YES; Platelet Count 186 K/mm3 (150-450); RBC Distribution Width CV 14.3 % (11.6-14.6); Red Blood Count 5.49 M/mm3 (4.2-5.4); White Blood Count 23.4 K/mm3 (4.4-11.0)
--- NOTE | 2023-02-27 16:53 | US_ITS ---
EXAM: US DUPLEX LEFT LOWER EXTREMITY VEINS CLINICAL INDICATION: LT CALF SWELLING TECHNIQUE: Real-time duplex ultrasound scan of the left lower extremity veins integrating B-mode two-dimensional vascular structure, Doppler spectral analysis, color flow Doppler imaging and compression. COMPARISON: No relevant prior studies available. FINDINGS: DEEP VEINS: There is an 8.3 x 3.3 x 5.1 cm anechoic structure in left popliteal fossa. No DVT in the visualized common femoral, femoral, proximal deep femoral or popliteal veins. The veins demonstrate normal color flow, are normally compressible, with normal phasic flow and/or augmentation response. SUPERFICIAL VEINS: Unremarkable. No thrombus in the visualized great saphenous vein. SOFT TISSUES: No acute findings. No popliteal cyst. US/Venous Duplex Imag/Limited/Uni IMPRESSION: No sonographic evidence of deep venous thrombosis. There is a left popliteal fossa cyst. Electronically Signed: Reese Alvarez MD at 17:33 EDT ,
[2023-02-27 17:01] LABS: Differential Indicated SCAN CRITERIA MET
[2023-02-27 17:05] LABS: ALB/GLOB Ratio 0.8 RATIO (0.9-2.4); AST(SGOT) 15 U/L (15-37); Alanine Aminotransfer ALT/SGPT 18 U/L (13-56); Albumin, Serum 3.6 g/dL (3.2-5.0); Alkaline Phosphatase 87 U/L (45-117); Anion Gap 5 (5-15); BUN 16 mg/dL (7-18); BUN/Creat Ratio 13.3 RATIO (10-20); Calcium,Total 8.7 mg/dL (8.5-10.1); Chloride 107 mmol/L (98-107); EST Glomerular Filtration Rate 47 mL/min (>60); Est Glom Filt Rate - Afr Amer 56 mL/min (>60); Estimated Creatinine Clearance 36.45 ml/min; Globulin 4.6 g/dL (2.2-4.2); Glucose 124 mg/dL (74-106); Lipase 25 U/L (13-75); Potassium 3.8 mmol/L (3.5-5.1); Protein, Total 8.2 g/dL (6.4-8.2); Sodium Level 137 mmol/L (136-145)
[2023-02-27 17:43] LABS: Differential Comment SCANNED
[2023-02-27 18:42] LABS: Bacteria 0 SEEN /hpf (None Seen); Mucous, Urine 0 SEEN /hpf (<or=2+); White Blood Cells 0 SEEN /hpf (0-5)
[2023-02-27 18:44] LABS: Color, Urine Yellow (Yellow); Glucose, Dipstick Normal (Normal); Ketone-Dipstick Negative (Negative); Leukocyte Esterase-Dipstick 500 /ul (Negative); Nitrite-Dipstick Negative (Negative); Occult Blood-Urine 150 /ul (Negative); Protein-Dipstick Negative (Negative); Urine Bilirubin Dipstick Negative (Negative); Urine Clarity Clear (Clear); Urine Urobilinogen Normal (Normal)
[2023-02-27 18:50] LABS: Red Blood Cells-Urine 0-5 SEEN /hpf (0-5); Squamous Epithelial Cells - UA 0-5 SEEN /hpf (5-10)
[2023-02-27 19:18] VITALS: RESP 16
[2023-02-27 20:00] VITALS: RESP 16
[2023-02-27] MEDS: Vancomycin 125 MG/5 ML Susp PO.SYRINGE PO (21:27)
[2023-03-04 08:58] LABS: Pathologist Review Reviewed
== END 2023-02-27 23:02 | disposition home or self-care (01) ==
PROVIDERS: Emergency Provider Emergency Medicine; PCP Family Medicine; Visit Provider Emergency Medicine
DX: A04.72 Enterocolitis due to Clostridium difficile, not specified as recurrent (principal); I10 Essential (primary) hypertension; D72.829 Elevated white blood cell count, unspecified; Z86.73 Personal history of transient ischemic attack (TIA), and cerebral infarction without residual deficits; Z79.82 Long term (current) use of aspirin; R19.7 Diarrhea, unspecified; L03.116 Cellulitis of left lower limb
CPT/HCPCS: 74177; 80053; 81001; 83690; 85025; 93971; 96361; 96374; 99283; Q9967; J2405

== ENCOUNTER → 2023-08-26 | Outpatient (CLI) | payer MEDICARE, SELFPAY ==
--- NOTE | 2023-08-26 10:40 | ECHOD_ITS ---
Reason For Study: ABN EKG, DYSPNEA/SOB Procedure This was a 2D Doppler, Color Flow transthoracic echocardiogram. Exam performed in department. Left Ventricle Normal LV size. Left ventricular systolic function is normal. The estimated ejection fraction is 60 %. Stage 1 diastolic dysfunction. No regional wall motion abnormalities noted. Right Ventricle Normal RV size. Normal systolic function. Atria Normal left atrium. Normal right atrium. Mitral Valve Normal mitral valve. Tricuspid Valve Normal tricuspid valve. Mild (1+) tricuspid valve insufficiency. Pulmonary artery systolic pressure is 38 mmHg. Aortic Valve Trisinus/trileaflet aortic valve. Pulmonic Valve Normal pulmonic valve. Great Vessels Normal aortic root. The pulmonary artery is normal size. Normal inferior vena cava. Pericardium/Pleural No pericardial effusion. MMode/2D Measurements & Calculations LVIDd: 4.9 cm IVSd: 1.1 cm Ao root diam: 3.3 cm LVIDs: 3.3 cm LVPWd: 1.1 cm RVDd: 3.2 cm FS: 33.1 % LAV(MOD-bp): 64.5 ml LVAd ap4: 31.1 cm2 LVAd ap2: 29.1 cm2 LAV(MOD-bp) Indexed: 31.4 ml/m2 LVLd ap4: 8.3 cm LVLd ap2: 8.1 cm LAV(MOD-sp2): 65.9 ml EDV(MOD-sp4): 98.1 ml EDV(MOD-sp2): 85.4 ml LAV(MOD-sp4): 62.6 ml EDV(sp4-el): 99.1 ml EDV(sp2-el): 88.7 ml LVAs ap4: 19.9 cm2 LVAs ap2: 15.6 cm2 LVLs ap4: 7.1 cm LVLs ap2: 6.8 cm ESV(MOD-sp4): 47.2 ml ESV(MOD-sp2): 31.1 ml ESV(sp4-el): 47.8 ml ESV(sp2-el): 30.4 ml EF(MOD-sp4): 51.9 % EF(MOD-sp2): 63.5 % EF(sp4-el): 51.8 % SV(MOD-sp4): 50.9 ml SV(MOD-sp2): 54.2 ml SV(sp4-el): 51.3 ml LA dimension(2D): 4.3 cm LA A4 area: 20.4 cm2 RA A4 area: 17.5 cm2 TAPSE: 2.9 cm Time Measurements MV dec time: 0.25 sec Doppler Measurements & Calculations MV E max kalen: 82.8 cm/sec Lat Peak E' Kalen: 8.4 cm/sec Med Peak E' Kalen: 7.8 cm/sec MV A max kalen: 107.2 cm/sec E/E' lat: 9.9 E/E' med: 10.6 MV E/A: 0.77 MV V2 max: 101.5 cm/sec MV P1/2t max kalen: 92.8 cm/sec Ao V2 max: 129.7 cm/sec MV max P.1 mmHg MV P1/2t: 62.7 msec Ao max P.7 mmHg MV V2 mean: 57.2 cm/sec MV dec slope: 433.6 cm/sec2 Ao V2 mean: 93.0 cm/sec MV mean P.5 mmHg Ao mean P.9 mmHg MV V2 VTI: 35.8 cm MVA(P1/2t): 3.5 cm2 Ao V2 VTI: 36.1 cm AV (velocity ratio): 0.72 LV V1 max: 105.1 cm/sec PA V2 max: 97.1 cm/sec TR max kalen: 290.6 cm/sec LV V1 max P.4 mmHg PA V2 mean: 68.8 cm/sec TR max P.8 mmHg LV V1 mean P.4 mmHg LV V1 mean: 73.7 cm/sec LV V1 VTI: 26.2 cm ECHO/Echo Complete Interpretation Summary Normal LV size. Left ventricular systolic function is normal. The estimated ejection fraction is 60 %. Pulmonary artery systolic pressure is 38 mmHg. Stage 1 diastolic dysfunction. Ordering Physician: Arley Moon Referring Physician: Frank Salinas Performed By: Noemi Jeong, RYLIE, RVT
== END | disposition home or self-care (01) ==
LOC: CVS 10:39
PROVIDERS: PCP Family Medicine; Referring Provider Internal Medicine Cardiovascular Disease; Visit Provider Internal Medicine Cardiovascular Disease
DX: R94.31 Abnormal electrocardiogram [ECG] [EKG] (principal)
CPT/HCPCS: 93306

== ENCOUNTER 2023-09-05 09:58 | Day surgery (SDC) | payer MEDICARE, SELFPAY ==
--- NOTE | 2023-09-02 12:58 | HP.PCM.OB_ITS ---
History and Physical Date of Admission: 09/05/23 Pre-Op History and Physical ? HPI: The patient is a 77 year old female presenting for pre-operative visit. She is scheduled for Hysteroscopy D&C and polypectomy with symphion, for thickened endometrium with atypical cells found on EMB on 09/05/23. Procedure discussed along with risks, benefits and complications. Other alternatives discussed for management. Consent form signed? Yes. ? ? PAST MEDICAL HISTORY PAST MEDICAL HISTORY Diagnosis Date ? Adjustment reaction 03/01/2010 ? Allergic rhinitis 01/05/2014 ? Allergy-induced asthma 01/05/2014 ? Sees Dr. Angel Isbell ? Arthritis of both hips 03/13/2022 ? Bilateral leg edema 08/11/2020 ? Breast density 06/27/2021 ? Left ? Chronic pain of both knees 05/16/2021 ? CKD (chronic kidney disease) stage 3, GFR 30-59 ml/min ([facility]) 02/25/2019 ? Fecal urgency 07/30/2022 ? Saw Gen Surgery 06/2022 and refused colonoscopy. ? Hypersomnia 03/14/2021 ? Impaired fasting glucose 10/03/2009 ? Lung nodules 04/24/2023 ? CT 03/2023 less then [address] 03/2024 ? Lupus ([facility]) 01/05/2014 ? Not wanting to see rheumatology ? Marital conflict 03/01/2010 ? Mixed hyperlipidemia 10/03/2009 ? Obesity, Class II, BMI 35-39.9 03/14/2021 ? Obesity, Class III, BMI 40-49.9 (morbid obesity) ([facility]) 03/14/2021 ? Other adjustment reaction with predominant disturbance of other emotions 03/01/2010 ? Primary osteoarthritis of left knee 11/18/2017 ? Proteinuria 02/13/2014 ? Repeat test was neg ? Remote history of stroke 12/23/2022 ? Noted on MRI from [facility] 11/2022. Patient denies known stroke history ? Right knee pain 02/23/2014 ? Under workman's comp ? Stage 3a chronic kidney disease ([facility]) 02/25/2019 ? Synovial cyst of left popliteal space 08/04/2020 ? Thoracic or lumbosacral neuritis or radiculitis, unspecified 07/04/2014 ? Varicose veins of both lower extremities 09/08/2019 ? Lt>Rt ? Venous insufficiency 10/03/2009 ? Vitamin D deficiency ? ? ? PAST SURGICAL HISTORY PAST SURGICAL HISTORY Procedure Laterality Date ? BX OF BREAST; INCISIONAL Left 07/06/2021 ? LIGJ DIVJ &/EXCJ VARICOSE VEIN CLUSTER 1 LEG ? ? ? Varicose Vein Surgery ? PAST SURGICAL HISTORY OF ? 05/1999 ? EXCISSION L FOOT LESIONS X2 ? PAST SURGICAL HISTORY OF ? 1973 ? LAPRASCOPY FOR FERTILITY ? STRESS TEST ? 08/05/2016 ? normal ? UNSPECIFIED ORAL SURGERY PROCEDURE, BY REPORT ? ? ? [place] teeth extracted/ and implant ? ? ? CURRENT MEDICATIONS Current Outpatient Medications Medication Sig Dispense Refill ? fluticasone (FLONASE) 50 mcg/actuation nasal spray instill 2 sprays into each nostril once daily 16 g 1 ? miSOPROStol (CYTOTEC) 200 mcg tablet Take 2 tabs orally the night prior to procedure and 2 tabs morning of procedure (Patient not taking: Reported on 08/13/2023) 4 tablet 0 ? Cholecalciferol, Vitamin D3, 50 mcg (2,000 unit) cap Take 1 capsule by mouth once daily. ? ? ? aspirin 81 mg chewable tablet Take 1 tablet by mouth once daily. ? ? ? No current facility-administered medications for this visit. ? ? ALLERGIES: Mar [Fexofenadine Hcl] and Singulair [Montelukast] ? PERSONAL HISTORY: SOCIAL HISTORY Social History ? Tobacco Use ? Smoking status: Never ? Smokeless tobacco: Never Vaping Use ? Vaping Use: Never used Substance Use Topics ? Alcohol use: No ? Drug use: No ? FAMILY HISTORY: FAMILY HISTORY FAMILY HISTORY Problem Relation Age of Onset ? Cancer Mother ? ? THROAT AND TONGUE FROM THIS AND ABOVE ? Arthritis Mother ? ? Rheumatoid ? other (HODGKINS DISEASE) Mother ? ? Diabetes Father ? ? Type 2 ? Stroke Father ? ? age 92 at time of ? other (KIDNEY FAILURE) Father ? ? FROM THIS ? Breast Cancer Other ? ? maternal first cousin ? ? REVIEW OF SYMPTOMS: negative except as noted above PHYSICAL EXAMINATION: ? VITALS: Blood pressure 136/84, weight 221 lb (100.2 kg). ? GENERAL: The patient is well nourished, well hydrated in no acute distress. , The patient is oriented to time, place, and person. NECK: Full range of motion LUNGS: Clear to auscultation bilaterally. no wheezes, rhonchi or rales HEART: Regular rate and rhythm, Normal heart sounds, and No murmurs or gallops ? IMPRESSION: Thickened endometrium and Atypical cells on EMB ? PLAN: Hysteroscopy, D&C, Polypectomy with symphion ? Pt has been counseled on risks/benefits and alternatives of surgery including but not limited to anesthesia, bleeding, infection, uterine perforation with subsequent injury to pelvic structures including bowel, bladder, ureters and vessels. Pt wishes to proceed with surgery at this time. ? Pre and post op instructions reviewed ? Cardiac clearance completed by Dr. Moon ? I have reviewed and updated past medical and surgical history, medications and allergies Fadumo Mckeon MD ?9:39 AM Office Visit on 09/02/2023 Office Visit on 09/02/2023 Note shared with patient
--- OUTSIDE RECORDS SUMMARY | 2023-09-05 10:30 | XMS RPT_ITS | CCD ---
Author Name Unknown Address [address] [facility] [id number] [place] [address] Organization [facility] Care Team Providers Care Energy Consultant Name Role Phone Lonny TRAN, Frank Anderson Primary Care Provider Rajan TRAN, Jaqueline Orosco Unavailable KAYLEE PRINCE Attending Unavailable LONNY, FRANK A Referring Unavailable LONNY, FRANK A Primary Care Unavailable SCHUYLER HOYT Attending Unavailable LONNY, FRANK A Referring Unavailable LONNY, FRANK A Primary Care Unavailable SCHUYLER HOYT Attending Unavailable LONNY, FRANK A Referring Unavailable LONNY, FRANK A Primary Care Unavailable Frank Salinas MD Primary Care Provider Frank Salinas MD Primary Care Provider Jaqueline Cuellar MD Unavailable SHIMON FREY Attending Unavailable LONNY, FRANK A Primary Care Unavailable HOFFMAN, LARA Referring Unavailable LONNY, FRANK A Referring Unavailable LONNY, FRANK A Primary Care Unavailable FADUMO YANG Attending Unavail able LONNY, FRANK A Primary Care Unavailable LONNY, FRANK A Primary Care Unavailable HOFFMAN, LARA Referring Unavailable LONNY, FRANK A Primary Care Unavailable HOFFMAN, LARA Referring Unavailable FIDEL, LARA Attending Unavailable LONNY, FRANK A Primary Care Unavailable HOFFMAN, LARA Referring Unavailable LONNY, FRANK A Primary Care Unavailable LONNY, FRANK A Referring Unavailable FARIBA SULLIVAN Attending Unavailable FADUMO YANG Attending Unavail able LONNY, FRANK A Primary Care Unavailable FIDEL LARA Attending Unavailable LONNY, FRANK A Primary Care Unavailable LONNY, FRANK A Primary Care Unavailable HOFFMAN, LARA Referring Unavailable LONNY, FRANK A Referring Unavailable LONNY, FRANK A Primary Care Unavailable LONNY, FRANK A Primary Care Unavailable LORIE NORTON Attending Unavailable LONNY, FRANK A Primary Care Unavailable LONNY, FRANK A Attending Unavailable LONNY, FRANK A Primary Care Unavailable LONNY, FRANK A Referring Unavailable LONNY, FRANK A Primary Care Unavailable LARA HOFFMAN Referring Unavailable LONNY, FRANK A Primary Care Unavailable LONNY, FRANK A Attending Unavailable LARA HOFFMAN Referring Unavailable LONNY, FRANK A Referring Unavailable LONNY, FRANK A Primary Care Unavailable LONNY, FRANK A Referring Unavailable LONNY, FRANK A Primary Care Unavailable LONNY, FRANK A Referring Unavailable LONNY, FRANK A Primary Care Unavailable LONNY, FRANK A Referring Unavailable LONNY, FRANK A Primary Care Unavailable LARA HOFFMAN Attending Unavailable LONNY, FRANK A Referring Unavailable LONNY, FRANK A Primary Care Unavailable LONNY, FRANK A Primary Care Unavailable LARA HOFFMAN Attending Unavailable LONNY, FRANK A Primary Care Unavailable LARA HOFFMAN Attending Unavailable LONNY, FRANK A Referring Unavailable LONNY, FRANK A Primary Care Unavailable LONNY, FRANK A Referring Unavailable LONNY, FRANK A Primary Care Unavailable LONNY, FRANK A Referring Unavailable LONNY, FRANK A Primary Care Unavailable LONNY, FRANK A Primary Care Unavailable LARA HOFFMAN Attending Unavailable LARA HOFFMAN Referring Unavailable LONNY, FRANK A Primary Care Unavailable LARA HOFFMAN Attending Unavailable Allergies Allergy Classification Reported Allergen(s) Allergy Type Date of Onset Reaction(s) Facility (20 sources) fexofenadine; Translations: [FEXOFENADINE HCL] Drug Allergy 11-07-2005 [facility] Work Phone: (20 sources) montelukast; Translations: [MONTELUKAST] Drug Allergy 01-24-2016 [facility] Work Phone: Medications Current Medications Medication Drug Class(es) Dates Sig (Normalized) Sig (Original) azithromycin 250 mg oral tablet (4 sources) Macrolide Antimicrobial Start: 03-13-2022 End: 03-18-2022 azithromycin (ZITHROMAX Z-JENNIFER) 250 mg tablet Take 2 tablets day one, then, 1 tablet daily until gone. 6 tablet 0 03/13/2022 03/18/2022 Active Completed/Discontinued Medications Medication Drug Class(es) Dates Sig (Normalized) Sig (Original) 8 hr acetaminophen 650 mg extended release oral tablet (20 sources) End: 03-08-2023 take 1 tablet by mouth every eight hours as needed acetaminophen 650 mg CR tablet Take 650 mg by mouth every 8 hours as needed. 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] Onset: 3 03-17-2023 Chronic Adjustment disorders (20 sources) Adjustment disorder; Translations: [Adjustment disorder, unspecified] Onset: 0 07-31-2017 Chronic Asthma (20 sources) Allergic asthma; Translations: [Unspecified asthma, uncomplicated] Onset: 4 09-06-2020 Chronic Chronic kidney disease (20 sources) Chronic kidney disease stage 3; Translations: [CKD (chronic kidney disease) stage 3, GFR 30-59 ml/min] Onset: 9 09-08-2019 Chronic Chronic kidney disease (1 source) Chronic kidney disease; Translations: [Stage 3 chronic kidney disease, unspecified whether stage 3a or 3b CKD (HCC)] Onset: 0 Chronic obstructive pulmonary disease and bronchiectasis (2 sources) Bronchitis; Translations: [Bronchitis, not specified as acute or chronic] Episodic Disorders of lipid metabolism (20 sources) Mixed hyperlipidemia; Translations: [Mixed hyperlipidemia] Onset: 0 07-26-2016 Chronic Malaise and fatigue (1 source) Weakness present; Translations: [Weakness] Episodic Mycoses (1 source) Tinea cruris; Translations: [Tinea cruris] Episodic Nutritional deficiencies (20 sources) Vitamin D deficiency; Translations: [Vitamin D deficiency, unspecified] Onset: 4 07-28-2016 Chronic Osteoarthritis (20 sources) Bilateral arthritis of hip; Translations: [Bilateral primary osteoarthritis of hip] Onset: 8 Chronic Other aftercare (1 source) Post-discharge follow-up; Translations: [Encounter for follow-up examination after completed treatment for conditions other than malignant neoplasm] Episodic Other and ill-defined cerebrovascular disease (1 source) Small vessel cerebrovascular disease; Translations: [Other cerebrovascular disease] 03-17-2023 Chronic Other and ill-defined cerebrovascular disease (1 source) Other cerebrovascular disease; Translations: [Cerebral microvasculopathy] Onset: 3 Chronic Other circulatory disease (1 source) Telangiectasia of limb; Translations: [Nevus, non-neoplastic] Episodic Other circulatory disease (1 source) Nevus, non-neoplastic; Translations: [Spider veins of limb] Onset: 2 Episodic Other circulatory disease (4 sources) Elevated blood-pressure reading without diagnosis of hypertension; Translations: [Elevated blood-pressure reading, without diagnosis of hypertension] Episodic Other connective tissue disease (3 sources) Swelling of lower limb; Translations: [Other specified soft tissue disorders] Episodic Other connective tissue disease (1 source) Swelling of left lower limb; Translations: [Other specified soft tissue disorders] 03-06-2023 Episodic Other female genital disorders (1 source) Endometrial hyperplasia; Translations: [Endometrial hyperplasia, unspecified] 06-02-2023 Chronic Other female genital disorders (2 sources) Mass of uterus; Translations: [Other specified noninflammatory disorders of uterus] 05-23-2023 Episodic Other gastrointestinal disorders (2 sources) Diarrhea; Translations: [Diarrhea, unspecified] Episodic Other gastrointestinal disorders (3 sources) Altered bowel function; Translations: [Change in bowel habit] Episodic Other nutritional; endocrine; and metabolic disorders (20 sources) Body mass index 40+ - severely obese; Translations: [Morbid (severe) obesity due to excess calories] Onset: 1 03-14-2021 Chronic Other nutritional; endocrine; and metabolic disorders (20 sources) Obese class II; Translations: [Obesity, unspecified] Onset: 1 04-09-2023 Chronic Other nutritional; endocrine; and metabolic disorders (3 sources) Unintentional weight loss; Translations: [Abnormal weight loss] 04-09-2023 Episodic Other screening for suspected conditions (not mental disorders or infectious disease) (5 sources) Endometrium thickened; Translations: [Abnormal findings on diagnostic imaging of other specified body structures] Onset: 4 08-13-2023 Chronic Other screening for suspected conditions (not mental disorders or infectious disease) (2 sources) Electrocardiogram abnormal; Translations: [Abnormal electrocardiogram [ECG] [EKG]] Onset: 3 08-11-2023 Episodic Other upper respiratory disease (20 sources) Allergic rhinitis; Translations: [Allergic rhinitis, unspecified] Onset: 4 01-05-2014 Chronic Other upper respiratory infections (1 source) Viral upper respiratory tract infection; Translations: [Acute upper respiratory infection, unspecified] Episodic Residual codes; unclassified (20 sources) Hypersomnia; Translations: [Hypersomnia, unspecified] Onset: 1 03-14-2021 Chronic Residual codes; unclassified (1 source) Breathing-related sleep disorder; Translations: [Sleep apnea, unspecified] 03-17-2023 Chronic Residual codes; unclassified (1 source) Sleep apnea, unspecified; Translations: [Breathing-related sleep disorder] Onset: 3 Chronic Residual codes; unclassified (2 sources) Weight change finding; Translations: [Other general symptoms and signs] 04-13-2023 Episodic Respiratory failure; insufficiency; arrest (adult) (1 source) Respiratory failure; insufficiency; arrest (adult) Onset: 2 Past or Other Problems Problem Classification Problem Date Documented Da te Episodic/Chronic Acute and unspecified renal failure (3 sources) Acute injury of kidney; Translations: [Acute kidney failure, unspecified] Onset: 12-19-2022 Episodic Administrative/social admission (20 sources) Marital conflict; Translations: [Problems in relationship with spouse or partner] Onset: 03-01-2010 02-25-2019 Episodic Diabetes mellitus without complication (20 sources) Impaired fasting glycemia; Translations: [Impaired fasting glucose] Onset: 10-03-2009 01-05-2014 Episodic Genitourinary symptoms and ill-defined conditions (20 sources) Proteinuria; Translations: [Proteinuria, unspecified] Onset: 02-13-2014 06-25-2021 Episodic Immunizations and screening for infectious disease (3 sources) Suspected disease caused by 2019-nCoV; Translations: [Suspected COVID-19 virus infection] Onset: 04-09-2023 Episodic Intestinal infection (3 sources) Clostridium difficile colitis; Translations: [Enterocolitis due to Clostridium difficile, not specified as recurrent] Onset: 03-06-2023 Episodic Other aftercare (20 sources) Patient encounter status; Translations: [Other halfway (current) drug therapy] Onset: 07-31-2017 09-08-2019 Episodic Other aftercare (1 source) Encounter for follow-up examination after completed treatment for conditions other than malignant neoplasm; Translations: [Hospital discharge follow-up] Onset: 12-19-2022 Episodic Other circulatory disease (20 sources) History of cerebrovascular accident; Translations: [Personal history of transient ischemic attack (TIA), and cerebral infarction without residual deficits] Onset: 12-23-2022 12-23-2022 Episodic Other circulatory disease (2 sources) Elevated blood-pressure reading, without diagnosis of hypertension; Translations: [Elevated blood pressure reading without diagnosis of hypertension] Onset: 02-18-2023 Episodic Other circulatory disease (1 source) Personal history of transient ischemic attack (TIA), and cerebral infarction without residual deficits; Translations: [Remote history of stroke] Onset: 12-23-2022 Episodic Other connective tissue disease (20 sources) Synovial cyst of left popliteal space; Translations: [Synovial cyst of popliteal space [Wilson], left knee] Onset: 08-04-2020 08-04-2020 Episodic Other connective tissue disease (3 sources) Other specified soft tissue disorders; Translations: [Swelling of lower extremity] Onset: 03-14-2022 Episodic Other diseases of veins and lymphatics (20 sources) Vascular insufficiency; Translations: [Venous insufficiency (chronic) (peripheral)] Onset: 10-03-2009 01-05-2014 Episodic Other diseases of veins and lymphatics (1 source) Venous insufficiency (chronic) (peripheral); Translations: [Venous insufficiency] Onset: 01-05-2014 Episodic Other female genital disorders (1 source) Other specified noninflammatory disorders of uterus; Translations: [Uterine mass] Onset: 05-29-2023 Episodic Other gastrointestinal disorders (20 sources) Urgent desire for stool; Translations: [Fecal urgency] Onset: 07-30-2022 Episodic Other lower respiratory disease (20 sources) Snoring; Translations: [Snoring] Onset: 03-14-2021 03-14-2021 Episodic Other lower respiratory disease (20 sources) Multiple nodules of lung; Translations: [Other nonspecific abnormal finding of lung field] Onset: 04-24-2023 04-24-2023 Episodic Other non-traumatic joint disorders (20 sources) Pain in right knee; Translations: [Pain in joint, lower leg] Onset: 02-23-2014 06-25-2021 Episodic Other nutritional; endocrine; and metabolic disorders (2 sources) Abnormal weight loss; Translations: [Weight loss, unintentional] Onset: 04-21-2023 Episodic Residual codes; unclassified (20 sources) Bilateral lower limb edema; Translations: [Localized edema] Onset: 08-11-2020 08-11-2020 Episodic Residual codes; unclassified (1 source) Other general symptoms and signs; Translations: [Unintentional weight change] Onset: 04-21-2023 Episodic Skin and subcutaneous tissue infections (7 sources) Cellulitis of skin; Translations: [Cellulitis, unspecified] Onset: 12-19-2022 Episodic Spondylosis; intervertebral disc disorders; other back problems (20 sources) Thoracic and lumbosacral neuritis; Translations: [Thoracic or lumbosacral neuritis or radiculitis, unspecified] Onset: 07-04-2014 07-26-2016 Episodic Varicose veins of lower extremity (20 sources) Varicose veins of bilateral lower limbs; Translations: [Asymptomatic varicose veins of bilateral lower extremities] Onset: 09-08-2019 09-10-2021 Episodic Results Test Name Value Interpretation Reference Range Facil ity Vital Signs Date Time Vital Sign Value Performing Clinician Faci lity 09-02-2023 09:09-0500 Body weight 100.25 kg Fadumo Mckeon MD Work Phone: [facility] 09-02-2023 09:09-0500 Diastolic blood pressure 84 mm[Hg] Fadumo Mckeon MD Work Phone: [facility] 09-02-2023 09:09-0500 Systolic blood pressure 136 mm[Hg] Fadumo Mckeon MD Work Phone: [facility] 08-14-2023 11:45-0500 Body temperature 97.7 [degF] Lara Hoffman PA-C Work Phone: [facility] 08-14-2023 11:45-0500 Body weight 99.34 kg Lara Hoffman PA-C Work Phone: [facility] 08-14-2023 11:45-0500 Diastolic blood pressure 80 mm[Hg] Lara Hoffman PA-C Work Phone: [facility] 08-14-2023 11:45-0500 Heart rate 76 /min Lara Hoffman PA-C Work Phone: [facility] 08-14-2023 11:45-0500 Respiratory rate 18 /min Lara Hoffman PA-C Work Phone: [facility] 08-14-2023 11:45-0500 Systolic blood pressure 110 mm[Hg] Lara Hoffman PA-C Work Phone: [facility] 08-13-2023 14:50-0500 Body weight 99.79 kg Fadumo Mckeon MD Work Phone: [facility] 08-13-2023 14:50-0500 Diastolic blood pressure 82 mm[Hg] Fadumo Mckeon MD Work Phone: [facility] 08-13-2023 14:50-0500 Systolic blood pressure 136 mm[Hg] Fadumo Mckeon MD Work Phone: [facility] 04-29-2023 11:02-0400 Body weight 98.88 kg Lorie Norton NURSERY WORKER.BRICK SETTER OPERATOR Work Phone: [facility] 04-29-2023 11:02-0400 Diastolic blood pressure 74 mm[Hg] Lorie Norton NURSERY WORKER.BRICK SETTER OPERATOR Work Phone: [facility] 04-29-2023 11:02-0400 Heart rate 70 /min Lorie Donte NURSERY WORKER.BRICK SETTER OPERATOR Work Phone: [facility] 04-29-2023 11:02-0400 Respiratory rate 16 /min Lorie Donte NURSERY WORKER.BRICK SETTER OPERATOR Work Phone: [facility] 04-29-2023 11:02-0400 Systolic blood pressure 130 mm[Hg] Lorie Norton NURSERY WORKER.BRICK SETTER OPERATOR Work Phone: [facility] 04-09-2023 09:20-0400 Body weight 98.88 kg Frank Salinas MD Work Phone: [facility] 04-09-2023 09:20-0400 Diastolic blood pressure 78 mm[Hg] Frank Salinas MD Work Phone: [facility] 04-09-2023 09:20-0400 Heart rate 70 /min Frank Salinas MD Work Phone: [facility] 04-09-2023 09:20-0400 Respiratory rate 18 /min Frank Salinas MD Work Phone: [facility] 04-09-2023 09:20-0400 Systolic blood pressure 128 mm[Hg] Frank Salinas MD Work Phone: [facility] 03-17-2023 09:56-0400 Body height 165.1 cm Shimon Frey MD, PhD Work Phone: [facility] 03-17-2023 09:56-0400 Body weight 99.66 kg Shimon Frey MD, PhD Work Phone: [facility] 03-17-2023 09:56-0400 Diastolic blood pressure 84 mm[Hg] Shimon Frey MD, PhD Work Phone: [facility] 03-17-2023 09:56-0400 Heart rate 94 /min Shimon Frey MD, PhD Work Phone: [facility] 03-17-2023 09:56-0400 SaO2% (BldA) [Mass fraction] 92 % Shimon Frey MD, PhD Work Phone: [facility] 03-17-2023 09:56-0400 Systolic blood pressure 156 mm[Hg] Shimon Frey MD, PhD Work Phone: [facility] 03-06-2023 13:37-0400 Diastolic blood pressure 84 mm[Hg] Frakn Salinas MD Work Phone: [facility] 03-06-2023 13:37-0400 Systolic blood pressure 136 mm[Hg] Frank Salinas MD Work Phone: [facility] 03-06-2023 13:02-0400 Body weight 98.43 kg Frank Salinas MD Work Phone: [facility] 03-06-2023 13:02-0400 Heart rate 64 /min Frank Salinas MD Work Phone: [facility] 03-06-2023 13:02-0400 Respiratory rate 16 /min Frank Salinas MD Work Phone: [facility] 02-18-2023 09:24-0400 Body temperature 97.7 [degF] Lara Hoffman PA-C Work Phone: [facility] 02-18-2023 09:24-0400 Body weight 98.88 kg Lara Hoffman PA-C Work Phone: [facility] 02-18-2023 09:24-0400 Diastolic blood pressure 80 mm[Hg] Lara Hoffman PA-C Work Phone: [facility] 02-18-2023 09:24-0400 Heart rate 60 /min Lara Hoffman PA-C Work Phone: [facility] 02-18-2023 09:24-0400 Respiratory rate 18 /min Lara Hoffman PA-C Work Phone: [facility] 02-18-2023 09:24-0400 Systolic blood pressure 110 mm[Hg] Lara Hoffman PA-C Work Phone: [facility] 12-26-2022 11:36-0400 Body temperature 98.29 [degF] Lara Hoffman PA-C Work Phone: [facility] 12-26-2022 11:36-0400 Body weight 101.15 kg Lara Hoffman PA-C Work Phone: [facility] 12-26-2022 11:36-0400 Diastolic blood pressure 70 mm[Hg] Lara Hoffman PA-C Work Phone: [facility] 12-26-2022 11:36-0400 Heart rate 73 /min Lara Hoffman PA-C Work Phone: [facility] 12-26-2022 11:36-0400 Respiratory rate 18 /min Lara Hoffman PA-C Work Phone: [facility] 12-26-2022 11:36-0400 Systolic blood pressure 130 mm[Hg] Lara Hoffman PA-C Work Phone: [facility] 12-19-2022 09:00-0400 Diastolic blood pressure 84 mm[Hg] Laraodalis Hoffman PA-C Work Phone: [facility] 12-19-2022 09:00-0400 Heart rate 71 /min Laraodalis Hoffman PA-C Work Phone: [facility] 12-19-2022 09:00-0400 Systolic blood pressure 155 mm[Hg] Lara Hoffmna PA-C Work Phone: [facility] 12-19-2022 07:57-0400 Body temperature 98.1 [degF] Lara Hoffman PA-C Work Phone: [facility] 12-19-2022 07:57-0400 Body weight 104.78 kg Lara Hoffman PA-C Work Phone: [facility] 12-19-2022 07:57-0400 Respiratory rate 18 /min Lara Hoffman PA-C Work Phone: [facility] 11-12-2022 07:45-0400 Body temperature 97.59 [degF] Lara Hoffman PA-C Work Phone: [facility] 11-12-2022 07:45-0400 Body weight 103.42 kg Lara Hoffman PA-C Work Phone: [facility] 11-12-2022 07:45-0400 Diastolic blood pressure 80 mm[Hg] Lara Hoffmna PA-C Work Phone: [facility] 11-12-2022 07:45-0400 Heart rate 74 /min Lara Hoffman PA-C Work Phone: [facility] 11-12-2022 07:45-0400 Respiratory rate 18 /min Laraodalis Hoffman PA-C Work Phone: [facility] 11-12-2022 07:45-0400 Systolic blood pressure 120 mm[Hg] Lara Hoffman PA-C Work Phone: [facility] 08-02-2022 15:54-0500 Body weight 105.14 kg Lara Hoffman PA-C Work Phone: [facility] 08-02-2022 15:54-0500 Diastolic blood pressure 84 mm[Hg] Lara Hoffman PA-C Work Phone: [facility] 08-02-2022 15:54-0500 Heart rate 74 /min Lara Hoffman PA-C Work Phone: [facility] 08-02-2022 15:54-0500 Respiratory rate 18 /min Lara Hoffman PA-C Work Phone: [facility] 08-02-2022 15:54-0500 SaO2% (BldA) [Mass fraction] 97 % Lara Hoffman PA-C Work Phone: [facility] 08-02-2022 15:54-0500 Systolic blood pressure 120 mm[Hg] Lara Hoffman PA-C Work Phone: [facility] 07-25-2022 08:58-0500 Body height 165.1 cm Jaqueline Cuellar MD Work Phone: [facility] 07-25-2022 08:58-0500 Body temperature 97.5 [degF] Jaqueline Cuellar MD Work Phone: [facility] 07-25-2022 08:58-0500 Body weight 105.23 kg Jaqueline Cuellar MD Work Phone: [facility] 07-25-2022 08:58-0500 Diastolic blood pressure 82 mm[Hg] Jaqueline Cuellar MD Work Phone: [facility] 07-25-2022 08:58-0500 Heart rate 75 /min Jaqueline Cuellar MD Work Phone: [facility] 07-25-2022 08:58-0500 SaO2% (BldA) [Mass fraction] 100 % Jaqueline Cuellar MD Work Phone: [facility] 07-25-2022 08:58-0500 Systolic blood pressure 130 mm[Hg] Jaqueline Cuellar MD Work Phone: [facility] 07-19-2022 07:59-0500 Body weight 106.14 kg Lara Hoffman PA-C Work Phone: [facility] 07-19-2022 07:59-0500 Diastolic blood pressure 80 mm[Hg] Lara Hoffman PA-C Work Phone: [facility] 07-19-2022 07:59-0500 Heart rate 84 /min Lara Hoffman PA-C Work Phone: [facility] 07-19-2022 07:59-0500 Respiratory rate 16 /min Lara Hoffman PA-C Work Phone: [facility] 07-19-2022 07:59-0500 SaO2% (BldA) [Mass fraction] 93 % Lara Hoffman PA-C Work Phone: [facility] 07-19-2022 07:59-0500 Systolic blood pressure 120 mm[Hg] Lara Hoffman PA-C Work Phone: [facility] 06-11-2022 09:05-0500 Body temperature 98.6 [degF] Lorie Norton APRN.BRICK SETTER OPERATOR Work Phone: [facility] 06-11-2022 09:05-0500 Body weight 105.69 kg Lorie Norton APRN.BRICK SETTER OPERATOR Work Phone: [facility] 06-11-2022 09:05-0500 Diastolic blood pressure 78 mm[Hg] Lorie Norton APRN.BRICK SETTER OPERATOR Work Phone: [facility] 06-11-2022 09:05-0500 Heart rate 89 /min Lorie Norton APRN.BRICK SETTER OPERATOR Work Phone: [facility] 06-11-2022 09:05-0500 Respiratory rate 18 /min Lorie Norton APRN.BRICK SETTER OPERATOR Work Phone: [facility] 06-11-2022 09:05-0500 SaO2% (BldA) [Mass fraction] 92 % Lorie Norton NURSERY WORKER.BRICK SETTER OPERATOR Work Phone: [facility] 06-11-2022 09:05-0500 Systolic blood pressure 132 mm[Hg] Lorie Norton APRN.BRICK SETTER OPERATOR Work Phone: [facility] 04-25-2022 15:40-0400 Diastolic blood pressure 81 mm[Hg] Mi Nurse Work Phone: [facility] 04-25-2022 15:40-0400 Heart rate 69 /min Mi Nurse Work Phone: [facility] 04-25-2022 15:40-0400 Systolic blood pressure 126 mm[Hg] Mi Nurse Work Phone: [facility] 03-29-2022 12:16-0400 Diastolic blood pressure 90 mm[Hg] Frank Salinas MD Work Phone: [facility] 03-29-2022 12:16-0400 Systolic blood pressure 138 mm[Hg] Frank Salinas MD Work Phone: [facility] 03-29-2022 11:43-0400 Body weight 111.13 kg Frank Salinas MD Work Phone: [facility] 03-29-2022 11:43-0400 Heart rate 72 /min Frank Salinas MD Work Phone: [facility] 03-29-2022 11:43-0400 Respiratory rate 16 /min Frank Salinas MD Work Phone: [facility] 03-14-2022 09:20-0400 Body height 162.6 cm Kaylee Prince MD Work Phone: [facility] 03-14-2022 09:20-0400 Body weight 112.95 kg Kaylee Prince MD Work Phone: [facility] 03-14-2022 09:20-0400 Diastolic blood pressure 70 mm[Hg] Kaylee Prince MD Work Phone: [facility] 03-14-2022 09:20-0400 Heart rate 68 /min Kaylee Prince MD Work Phone: [facility] 03-14-2022 09:20-0400 Respiratory rate 18 /min Kaylee Prince MD Work Phone: [facility] 03-14-2022 09:20-0400 Systolic blood pressure 124 mm[Hg] Kaylee Prince MD Work Phone: [facility] 03-13-2022 10:31-0400 Body temperature 96.8 [degF] Frank Salinas MD Work Phone: [facility] 03-13-2022 10:31-0400 Body weight 109.32 kg Frank Salinas MD Work Phone: [facility] 03-13-2022 10:31-0400 Diastolic blood pressure 88 mm[Hg] Frank Salinas MD Work Phone: [facility] 03-13-2022 10:31-0400 Heart rate 64 /min Frank Salinas MD Work Phone: [facility] 03-13-2022 10:31-0400 Respiratory rate 16 /min Frank Salinas MD Work Phone: [facility] 03-13-2022 10:31-0400 Systolic blood pressure 132 mm[Hg] Frank Salinas MD Work Phone: [facility] Encounters Encounter Date Encounter Type Care Provider Facility Start: 09-03-2023 Chart abstracting Frank carrillo MD Work Phone: [facility] Procedures Date Procedure Procedure Detail Performing Clinician Start: 08-14-2023 Ecg routine ecg w/le ast 12 lds i&r only [facility] Provider Start: 06-18-2023 Screening mammograph y bi 2-view breast inc cad Frank Salinas MD Work Phone: Start: 04-21-2023 Us abdominal real ti me w/image documentation Frank Salinas MD Work Phone: Start: 04-21-2023 Ct thorax w/o contra st material Frank Salinas MD Work Phone: Start: 04-02-2023 Lipid 1996 panel - S jamilah or Plasma Frank Salinas MD Work Phone: Start: 09-14-2022 Lipid 1996 panel - S jamilah or Plasma Shimon Frey MD, PhD Work Phone: Start: 06-12-2022 End: 06-12-2022 Mammography Frank Salinas MD Work Phone: Start: 03-13-2022 COVID WITH FLUA+B, ROUTINE Frank Salinas MD Work Phone: Start: 05-09-2021 Mammography Frank carrillo MD Work Phone: Start: 10-11-2020 Adult depression scr eening assessment Frank Salinas MD Work Phone: Start: 09-23-2017 Colonoscopy Frank carrillo MD Work Phone: Plan of Treatment Date Care Activity Detail Author Start: 04-02-2028 Lipid 1996 panel - S jamilah or Plasma Lipid Screening [facility] Start: 04-02-2028 Lipid panel Lipid Screening [facility] Start: 09-15-2027 Lipid 1996 panel - S jamilah or Plasma Lipid Screening [facility] Start: 09-15-2027 LIPID SCREEN LIPID SCREEN [facility] Start: 03-08-2027 LIPID SCREEN LIPID SCREEN [facility] Start: 08-14-2026 Diabetes Screening Diabetes Screenin [facility] Start: 04-02-2026 Diabetes Screening Diabetes Screenin g [facility] Start: 02-18-2026 DIABETES SCREEN DIABETES SCREEN [facility] Start: 02-18-2026 Diabetes Screening Diabetes Screenin g [facility] Start: 09-14-2025 DIABETES SCREEN DIABETES SCREEN [facility] Start: 07-19-2025 DIABETES SCREEN DIABETES SCREEN [facility] Start: 03-08-2025 DIABETES SCREEN DIABETES SCREEN [facility] Start: 08-14-2024 Annual PCP Team [employer] catherine Disease Visit Annual PCP Team Chronic Disease Visit [facility] Start: 08-14-2024 Complete blood count Hemoglobin/Ricci tocrit [facility] Start: 08-14-2024 Creatinine measurement Serum Creatin ine [facility] Start: 04-29-2024 Annual PCP Team [employer] catherine Disease Visit Annual PCP Team Chronic Disease Visit [facility] Start: 04-09-2024 Annual PCP Team [employer] catherine Disease Visit Annual PCP Team Chronic Disease Visit [facility] Start: 04-09-2024 Covid-19 Vaccine ( season) Covid-19 Vaccine ( season) [facility] Immunizations Immunization Date Immunization Notes Care Provider Fa cility 04-09-2023 pneumococcal (PCV20) vaccine, 20 valent (PREVNAR 20) Frank Salinas MD Work Phone: [facility] 04-09-2023 pneumococcal Conjuga te, unspecified formulation Frank Salinas MD Work Phone: [facility] Work Phone: 05-29-2022 influenza (aIIV4) vaccine, age 65+ yr, quadrivalent, PF (FLUAD QUADRIVALENT) Frank Salinas MD Work Phone: [facility] 05-29-2022 zoster vaccine recombinant Frank Salinas MD Work Phone: [facility] 01-03-2022 zoster vaccine recombinant Frank Salinas MD Work Phone: [facility] 01-03-2022 zoster vaccine, live Frank Salinas MD Work Phone: [facility] 10-03-2009 tetanus toxoid, redu magdy diphtheria toxoid, and acellular pertussis vaccine, adsorbed Frank Salinas MD Work Phone: [facility] 07-25-1998 diphtheria and tetan us toxoids, adsorbed for pediatric use Frank Salinas MD Work Phone: [facility] Work Phone: Payers Date Payer Category Payer Medicare [employer] MEDICARE A ETNA MEDICARE PPO [id number] 2021-Present [phone] [address] [place] [address] PPO [id number] 2021 Medicare [id number] 2012 Unknown [id number] Social History Date Type Detail Facility Start: 11-22-2010 Tobacco smoking status NHIS Never smoked tobacco [facility] Work Phone: Start: 11-22-2010 Tobacco use and exposure Smokeless tobacco non-user [facility] Work Phone: Start: 03-13-2022 End: 09-02-2023 Alcohol intake Current non-drinker of alcohol (finding) [facility] Start: 03-07-2022 History SDOH Alcohol Frequency 1 [facility] Start: 03-07-2022 History SDOH Alcohol Std Drinks 0 [facility] Start: 03-07-2022 History SDOH Social Connections Phone 5 [facility] Start: 03-07-2022 History SDOH Social Connections Get Together 2 [facility] Start: 03-07-2022 History SDOH Social Connections Adventism 3 [facility] Start: 08-04-2020 Education 18 [facility] Start: 1945 Sex Assigned At Female [facility] Start: 03-03-2022 End: 03-29-2022 Exposure to SARS-CoV-2 (event) Not sure [facility] Start: 03-07-2022 End: 11-12-2022 History of Social function [facility] Start: 03-07-2022 End: 11-12-2022 Social connection and isolation panel [facility] Do you belong to any clubs or organizations such as sikh groups, unions, fraternal or athletic groups, or school groups? Yes [facility] Are you now , , , , never or living with a partner? [facility] How often to you hav e a drink containing alcohol? Never [facility] How many standard dr inks containing alcohol do you have on a typical day? Patient does not drink [facility] Do you feel stress - tense, restless, nervous, or anxious, or unable to sleep at night because your mind is troubled all the time - these days [OSQ] Not at all [facility] (I/We) worried wheth er (my/our) food would run out before (I/we) got money to buy more. Never true [facility] In the past 12 month s, was there a time when you were not able to pay the mortgage or rent on time? No [facility] Start: 07-11-2021 Gender identity Identifies as female gender (finding) [facility] Start: 07-11-2021 Sexual orientation Heterosexual (finding) [facility] Clinical Notes 01-05-2014 to 09-03-2023 Otoniel Boyer LPN - 09/03/2023 3:14 PM Fadumo Parker MD - 09/02/2023 9:32 AM Otoniel Gracia LPN - 08/21/2023 7:59 AM Lara Wei PA-C - 08/14/2023 11:51 AM EST Note Date & Type Note Facility 09-03-2023 Note HNO ID: [id number] Author: OTONIEL BOYER LPN Service: ? Author Type: LICENSED NURSE Type: Progress Notes Filed: 09/03/2023 15:14 Note Text: Scan on 09/02/2023 1:03 PM by ProviderLiana PA-C [facility] 09-03-2023 History of Presen t illness Narrative Scan on 09/02/2023 1:03 PM by ProviderLiana PA-C documented in this encounter [facility] 09-02-2023 History and physical note Pre-Op History and Physical HPI: The patient is a 77 year old female presenting for pre-operative visit. She is scheduled for Hysteroscopy D&C and polypectomy with symphion, for thickened endometrium with atypical cells found on EMB on 09/05/23. Procedure discussed along with risks, benefits and complications. Other alternatives discussed for management. Consent form signed? Yes. PAST MEDICAL HISTORY Diagnosis Date Adjustment reaction 03/01/2010 Allergic rhinitis 01/05/2014 Allergy-induced asthma 01/05/[address] Angel Isbell Arthritis of both hips 03/13/2022 Bilateral leg edema 08/11/2020 Breast density 06/27/2021 Left Chronic pain of both knees 05/16/2021 CKD (chronic kidney disease) stage 3, GFR 30-59 ml/min ([facility]) 02/25/2019 Fecal urgency 07/30/2022 Saw Gen Surgery 06/2022 and refused colonoscopy. 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 Patient denies known stroke history Right knee pain 02/23/2014 Under workman's comp Stage 3a chronic kidney disease ([facility]) 02/25/2019 Synovial cyst of left popliteal space 08/04/2020 Thoracic or lumbosacral neuritis or radiculitis, unspecified 07/04/2014 Varicose veins of both lower extremities 09/08/2019 Lt>Rt Venous insufficiency 10/03/2009 Vitamin D deficiency PAST SURGICAL HISTORY Procedure Laterality Date BX OF BREAST; INCISIONAL Left 07/06/2021 LIGJ DIVJ &/EXCJ VARICOSE VEIN CLUSTER 1 LEG Varicose Vein Surgery PAST SURGICAL HISTORY OF 05/1999 EXCISSION L FOOT LESIONS X2 PAST SURGICAL HISTORY OF 1973 LAPRASCOPY FOR FERTILITY STRESS TEST 08/05/2016 normal UNSPECIFIED ORAL SURGERY PROCEDURE, BY REPORT Boone teeth extracted/ and implant Current Outpatient Medications Medication Sig Dispense Refill fluticasone (FLONASE) 50 mcg/actuation nasal spray instill 2 sprays into each nostril once daily 16 g 1 miSOPROStol (CYTOTEC) 200 mcg tablet Take 2 tabs orally the night prior to procedure and 2 tabs morning of procedure (Patient not taking: Reported on 08/13/2023) 4 tablet 0 Cholecalciferol, Vitamin D3, 50 mcg (2,000 unit) cap Take 1 capsule by mouth once daily. aspirin 81 mg chewable tablet Take 1 tablet by mouth once daily. No current facility-administered medications for this visit. ALLERGIES: Mar [Fexofenadine Hcl] and Singulair [Montelukast] PERSONAL HISTORY: Social History Tobacco Use Smoking status: Never Smokeless tobacco: Never Vaping Use Vaping Use: Never used Substance Use Topics Alcohol use: No Drug use: No FAMILY HISTORY: FAMILY HISTORY Problem Relation Age of Onset Cancer Mother THROAT AND TONGUE FROM THIS AND ABOVE Arthritis Mother Rheumatoid other (HODGKINS DISEASE) Mother Diabetes Father Type 2 Stroke Father age 92 at time of other (KIDNEY FAILURE) Father FROM THIS Breast Cancer Other maternal first cousin REVIEW OF SYMPTOMS: negative except as noted above PHYSICAL EXAMINATION: VITALS: Blood pressure 136/84, weight 221 lb (100.2 kg). GENERAL: The patient is well nourished, well hydrated in no acute distress. , The patient is oriented to time, place, and person. NECK: Full range of motion LUNGS: Clear to auscultation bilaterally. no wheezes, rhonchi or rales HEART: Regular rate and rhythm, Normal heart sounds, and No murmurs or gallops IMPRESSION: Thickened endometrium and Atypical cells on EMB PLAN: Hysteroscopy, D&C, Polypectomy with symphion Pt has been counseled on risks/benefits and alternatives of surgery including but not limited to anesthesia, bleeding, infection, uterine perforation with subsequent injury to pelvic structures including bowel, bladder, ureters and vessels. Pt wishes to proceed with surgery at this time. Pre and post op instructions reviewed Cardiac clearance completed by Dr. Moon I have reviewed and updated past medical and surgical history, medications and allergies Fadumo Mckeon MD documented in this encounter [facility] 08-21-2023 Note HNO ID: [id number] Author: OTONIEL BOYER LPN Service: ? Author Type: LICENSED NURSE Type: Progress Notes Filed: 08/21/2023 08:00 Note Text: Scan on 08/20/2023 4:05 PM by Provider, External, PA-C: Consultation - Cardiology [facility] 08-21-2023 History of Presen t illness Narrative Scan on 08/20/2023 4:05 PM by Provider, ANTHONY Gaines: Consultation - Cardiology documented in this encounter [facility] 08-20-2023 Miscellaneous Notes automatic grinder operator notified. Jeanne Chavez RN Ok- per Dr. Quesada- needs full cardiology clearance as she basically Failed a stress test I feel at this time it may be best to reschedule her surgery to a future date so we are not scrambling for Friday. Patient called and notified that she has been scheduled to be seen by today at 3:15. Information faxed to his office. Jeanne Chvaez RN Patient was called and notified that anesthesia at [facility] is cancelling patients surgery for this Friday as they state she has to be cleared specifically by cardiology for her abnormal EKG. Patient instructed that our office will work on getting her an appointment with Dr. Moon's office and will be in contact with her once that is scheduled. Jeanne Chavez RN documented in this encounter [facility] 08-18-2023 Miscellaneous Notes Attempted to notify patient. No answer and unable to leave a voicemail. Mailbox is not set up. Sent [employer] message. Marcela Joe RN Images from the original note were not included. Fadumo Yang MD [place], Annalee, LPN; Marcela Joe, FLORES She is cleared pending labs. So I should have had her just sign the consent. So bring her in on the at 8am and I will sign with her then. Previous Messages ----- Message ----- From: Lara Hoffman PA-C Sent: 08/14/2023 12:56 PM EST To: Fadumo Mckeon MD Patient's EKG in office today is normal. I discussed with PCP as well. She is cleared for surgery pending labwork. Let me know if any questions. documented in this encounter [facility] 08-15-2023 Miscellaneous Notes Pt called and is notified of providers results and instructions. Pt voices understanding. Checked with provider that nothing needed sent and she said she messaged provider. Natividad Del Cid RN Labs are stable. Cleared for procedure. documented in this encounter [facility] 08-14-2023 Note HNO ID: [id number] Author: LARA HOFFMAN PA-C Service: ? Author Type: Physician Artist Manager Type: Progress Notes Filed: 08/15/2023 12:11 Note Text: Chief Complaint Patient presents with: Pre-Op Exam HPI Elizabeth Mcnally is a 77 year old female who presents here today for preop exam. Patient will undergo a hysteroscopy DANDC with Dr. Mckeon. Possible hysterectomy may be needed based on results. She is being asked to receive cardiac clearance given an abnormal EKG that was done at the hospital in November of 2022. Patient denies chest pain, shortness of breath No Hx of NE or CAD Past medical history, appointments, medications, allergies reviewed. Previous Medical History PAST MEDICAL HISTORY Diagnosis Date Adjustment reaction 03/01/2010 Allergic rhinitis 01/05/2014 Allergy-induced asthma 01/05/[address] Angel Isbell Arthritis of both hips 03/13/2022 Bilateral leg edema 08/11/2020 Breast density 06/27/2021 Left Chronic pain of both knees 05/16/2021 CKD (chronic kidney disease) stage 3, GFR 30-59 ml/min ([facility]) 02/25/2019 Fecal urgency 07/30/2022 Saw Gen Surgery 06/2022 and refused colonoscopy. 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 Patient denies known stroke history Right knee pain 02/23/2014 Under workman's comp Stage 3a chronic kidney disease ([facility]) 02/25/2019 Synovial cyst of left popliteal space 08/04/2020 Thoracic or lumbosacral neuritis or radiculitis, unspecified 07/04/2014 Varicose veins of both lower extremities 09/08/2019 Lt>Rt Venous insufficiency 10/03/2009 Vitamin D deficiency Previous Surgical History PAST SURGICAL HISTORY Procedure Laterality Date BX OF BREAST; INCISIONAL Left 07/06/2021 LIGJ DIVJ AND/EXCJ VARICOSE VEIN CLUSTER 1 LEG Varicose Vein Surgery PAST SURGICAL HISTORY OF 05/1999 EXCISSION L FOOT LESIONS X2 PAST SURGICAL HISTORY OF 1973 LAPRASCOPY FOR FERTILITY STRESS TEST 08/05/2016 normal UNSPECIFIED ORAL SURGERY PROCEDURE, BY REPORT Boone teeth extracted/ and implant Family History FAMILY HISTORY Problem Relation Age of Onset Cancer Mother THROAT AND TONGUE FROM THIS AND ABOVE Arthritis Mother Rheumatoid other (HODGKINS DISEASE) Mother Diabetes Father Type 2 Stroke Father age 92 at time of other (KIDNEY FAILURE) Father FROM THIS Breast Cancer Other maternal first cousin Patient Allergies ALLERGIES Allergen Reactions Mar [Fexofenadi* Rash Singulair [[place]* Rash itching and rash (tried twice) Current Medications Current Outpatient Medications on File Prior to Visit Medication Sig fluticasone (FLONASE) 50 mcg/actuation nasal spray instill 2 sprays into each nostril once daily Cholecalciferol, Vitamin D3, 50 mcg (2,000 unit) cap Take 1 capsule by mouth once daily. aspirin 81 mg chewable tablet Take 1 tablet by mouth once daily. miSOPROStol (CYTOTEC) 200 mcg tablet Take 2 tabs orally the night prior to procedure and 2 tabs morning of procedure (Patient not taking: Reported on 08/13/2023) No current facility-administered medications on file prior to visit. Social History Social History Tobacco Use Smoking status: Never Smokeless tobacco: Never Vaping Use Vaping Use: Never used Substance Use Topics Alcohol use: No Drug use: No Review of Symptoms REVIEW OF SYSTEMS GENERAL: No weight loss, malaise or fevers NECK: Negative for lumps, goiter, pain and significant neck swelling RESPIRATORY: Negative for cough, hemoptysis, wheezing, COPD, dyspnea or shortness of breath CARDIOVASCULAR: Negative for chest pain, leg swelling, hypertension, CHF or palpitations GI: Negative for abdominal discomfort, blood in stools or black stools, change in bowel habit, heart burn, nausea, vomiting HEMATOLOGY/LYMPHOLOGY: Negative for prolonged bleeding, bruising easily or swollen nodes ENDOCRINE: Negative for cold or heat intolerance, polyuria, polydipsia and goiter NEURO: No history of headaches, syncope, paralysis, seizures or tremors EXAM: BP 110/80 (BP Site: Left Arm, BP Position: Sitting, BP Cuff Size: Large Adult) Pulse 76 Temp 36.5 ?C (97.7 ?F) Resp 18 Wt 99.3 kg (219 lb) BMI 36.44 kg/m? General Appearance: Well appearing, alert, in no acute distress, well-hydrated, well nourished. and Obese. Neck: Supple, no adenopathy; thyroid symmetric, normal size, no bruits. (more content not included)... [facility] 08-14-2023 History of Presen t illness Narrative Chief Complaint Patient presents with: Pre-Op Exam HPI Elizabeth Mcnally is a 77 year old female who presents here today for preop exam. Patient will undergo a hysteroscopy D&C with Dr. Mckeon. Possible hysterectomy may be needed based on results. She is being asked to receive cardiac clearance given an abnormal EKG that was done at the hospital in November of 2022. Patient denies chest pain, shortness of breath No Hx of NE or CAD Past medical history, appointments, medications, allergies reviewed. Previous Medical History PAST MEDICAL HISTORY Diagnosis Date Adjustment reaction 03/01/2010 Allergic rhinitis 01/05/2014 Allergy-induced asthma 01/05/[address] Angel Isbell Arthritis of both hips 03/13/2022 Bilateral leg edema 08/11/2020 Breast density 06/27/2021 Left Chronic pain of both knees 05/16/2021 CKD (chronic kidney disease) stage 3, GFR 30-59 ml/min ([facility]) 02/25/2019 Fecal urgency 07/30/2022 Saw Gen Surgery 06/2022 and refused colonoscopy. 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 Patient denies known stroke history Right knee pain 02/23/2014 Under workman's comp Stage 3a chronic kidney disease ([facility]) 02/25/2019 Synovial cyst of left popliteal space 08/04/2020 Thoracic or lumbosacral neuritis or radiculitis, unspecified 07/04/2014 Varicose veins of both lower extremities 09/08/2019 Lt>Rt Venous insufficiency 10/03/2009 Vitamin D deficiency Previous Surgical History PAST SURGICAL HISTORY Procedure Laterality Date BX OF BREAST; INCISIONAL Left 07/06/2021 LIGJ DIVJ &/EXCJ VARICOSE VEIN CLUSTER 1 LEG Varicose Vein Surgery PAST SURGICAL HISTORY OF 05/1999 EXCISSION L FOOT LESIONS X2 PAST SURGICAL HISTORY OF 1973 LAPRASCOPY FOR FERTILITY STRESS TEST 08/05/2016 normal UNSPECIFIED ORAL SURGERY PROCEDURE, BY REPORT Boone teeth extracted/ and implant Family History FAMILY HISTORY Problem Relation Age of Onset Cancer Mother THROAT AND TONGUE FROM THIS AND ABOVE Arthritis Mother Rheumatoid other (HODGKINS DISEASE) Mother Diabetes Father Type 2 Stroke Father age 92 at time of other (KIDNEY FAILURE) Father FROM THIS Breast Cancer Other maternal first cousin Patient Allergies ALLERGIES Allergen Reactions Mar [Fexofenadi* Rash Singulair [[place]* Rash itching and rash (tried twice) Current Medications Current Outpatient Medications on File Prior to Visit Medication Sig fluticasone (FLONASE) 50 mcg/actuation nasal spray instill 2 sprays into each nostril once daily Cholecalciferol, Vitamin D3, 50 mcg (2,000 unit) cap Take 1 capsule by mouth once daily. aspirin 81 mg chewable tablet Take 1 tablet by mouth once daily. miSOPROStol (CYTOTEC) 200 mcg tablet Take 2 tabs orally the night prior to procedure and 2 tabs morning of procedure (Patient not taking: Reported on 08/13/2023) No current facility-administered medications on file prior to visit. Social History Social History Tobacco Use Smoking status: Never Smokeless tobacco: Never Vaping Use Vaping Use: Never used Substance Use Topics Alcohol use: No Drug use: No Review of Symptoms REVIEW OF SYSTEMS GENERAL: No weight loss, malaise or fevers NECK: Negative for lumps, goiter, pain and significant neck swelling RESPIRATORY: Negative for cough, hemoptysis, wheezing, COPD, dyspnea or shortness of breath CARDIOVASCULAR: Negative for chest pain, leg swelling, hypertension, CHF or palpitations GI: Negative for abdominal discomfort, blood in stools or black stools, change in bowel habit, heart burn, nausea, vomiting HEMATOLOGY/LYMPHOLOGY: Negative for prolonged bleeding, bruising easily or swollen nodes ENDOCRINE: Negative for cold or heat intolerance, polyuria, polydipsia and goiter NEURO: No history of headaches, syncope, paralysis, seizures or tremors EXAM: BP 110/80 (BP Site: Left Arm, BP Position: Sitting, BP Cuff Size: Large Adult) Pulse 76 Temp 36.5 C (97.7 F) Resp 18 Wt 99.3 kg (219 lb) BMI 36.44 kg/m General Appearance: Well appearing, alert, in no acute distress, well-hydrated, well nourished. and Obese. Neck: Supple, no adenopathy; thyroid symmetric, normal size, no bruits. Lungs: Lungs clear to auscultation. No wheezing, rhonchi, rales.. Heart: RRR without murmur, gallop, or rubs. No ectopy. Abdomen: Normal abdominal exam, Abdomen soft, non-tender. Bowel sounds normal. No masses, organomegaly. Extremities: No deformities, edema, skin discoloration, clubbing or cyanosis. Good capillary refill. . Peripheral Pulses: Normal. Neurologic: Gait normal. Reflexes normal and symmetric. Sensation grossly intact.. Health Maintenance List RSV Vaccine(1 - 1-dose 60+ series) Never done Advance Directive Discussion due on 06/30/2023 Depression Assessment due on 06/30/2023 DTaP,Tdap,Td Vaccine(3 - Td or Tdap) due on 04/09/2024 Covid-19 Vaccine(2022-24 season) due on 04/09/2024 Serum Creatinine due on 04/02/2024 Hemoglobin/Hematocrit due on 04/02/2024 Annual PCP Team Chronic Disease Visit due on 04/29/2024 Diabetes Screening due on 04/02/2026 Lipid Screening due on 04/02/2028 Bone Density Screening Completed Hepatitis C Screening Completed Shingrix Vaccine Completed Mammogram Screening Discontinued Spirometry Discontinued Influenza Vaccine Discontinued Colorectal Cancer Screening Discontinued Pneumococcal Vaccine: 65+ Discontinued Data reviewed ECG: Bradycardia rate of 59. Otherwise normal ECG. METS >4 Component Latest Ref Rng & Units 08/14/2023 WBC 3.70 - 11.00 k/uL 7.86 RBC 3.90 - 5.20 m/uL 5.39 (H) Hemoglobin 11.5 - 15.5 g/dL 14.5 Hematocrit 36.0 - 46.0 % 46.0 MCV 80.0 - 100.0 fL 85.3 MCH 26.0 - 34.0 pg 26.9 MCHC 30.5 - 36.0 g/dL 31.5 RDW-CV 11.5 - 15.0 % 13.9 Platelet Count 150 - 400 k/uL 155 MPV 9.0 - 12.7 fL 11.1 Neut% % 56.1 Abs Neut (ANC) 1.45 - 7.50 k/uL 4.41 Lymph% % 28.5 Abs Lymph 1.00 - 4.00 k/uL 2.24 Ware% % 10.7 Abs Ware <0.87 k/uL 0.84 Eosin% % 3.8 Abs Eosin <0.46 k/uL 0.30 Baso% % 0.5 Abs Baso <0.11 k/uL 0.04 Immature Gran % % 0.4 IMMATURE GRANS (ABS) <0.10 k/uL 0.03 NRBC /100 WBC 0.0 Absolute nRBC <0.01 k/uL <0.01 DTYPE Auto Protein, Total 6.3 - 8.0 g/dL 7.2 Albumin 3.9 - 4.9 g/dL 4.0 Calcium 8.5 - 10.2 mg/dL 9.4 Bilirubin, Total 0.2 - 1.3 mg/dL 0.4 Alkaline Phosphatase 34 - 123 U/L 69 AST 13 - 35 U/L 16 ALT 7 - 38 U/L 12 Glucose 74 - 99 mg/dL 89 BUN 7 - 21 mg/dL 22 (H) Creatinine 0.58 - 0.96 mg/dL 1.06 (H) Sodium 136 - 144 mmol/L 140 Potassium 3.7 - 5.1 mmol/L 4.5 Chloride 97 - 105 mmol/L 106 (H) CO2 22 - 30 mmol/L 26 Anion Gap 9 - 18 mmol/L 8 (L) eGFR >=60 mL/min/1.73m 55 (L) ASSESSMENT/PLAN: 1. Pre-op examination - ICD9: V72.84, ICD10: Z01.818 (primary diagnosis) Patient's ECG is normal. Reviewed case with PCP, Dr. Salinas. According to ACC/AHA classification of surgical procedure risk this is a low to moderate risk procedure. Based on James's Simple cardiac risk index patient's risk is 0.9%. Patient has moderate exercise capacity. No further evaluation needed. Cleared for Bioinformatics Specialist procedure - ECG COMPLETE - COMP METABOLIC PANEL - CBC + DIFF 2. Thickened endometrium - ICD9: 793.5, ICD10: R93.89 Continue with gynecology. - COMP METABOLIC PANEL - CBC + DIFF Lara Hoffman, PA-C I spent a total of 36 minutes on the date of the service which included preparing to see the patient, [id number] patient care, completing clinical documentation, obtaining and/or reviewing separately obtained history, performing a medically appropriate examination, ordering medications, tests, or procedures, and communicating results to the patient/family/caregiver. documented in this encounter [facility] 08-13-2023 Note HNO ID: [id number] Author: FADUMO YANG MD Service: ? Author Type: Physician Type: Progress Notes Filed: 08/13/2023 16:53 Note Text: Patient was originally scheduled for hysteroscopy DANDC on August 22, 2023 however due to an EKG abnormality she needs a cardiac clearance prior to surgical intervention. Due to limited cardiac care in [place] plan will be to send to primary care for further workup and evaluation and medical clearance. This is a minor procedure that will involve MAC anesthesia. Patient arrived for her preop visit today I explained this to the patient and she understood. Discussed with the patient her abnormal findings on endometrial biopsy performed by Dr. Sullivan which revealed atypical cells hence requiring a hysteroscopy DANDC to further evaluate. Discussed with the patient that if this indeed came back as cancer or hyperplasia with atypia that a hysterectomy would be indicated and cardiac clearance would be indicated for her as well to proceed with that surgery performed by COLLEGE SERVICE OFFICER oncologist. After reviewing her chart it does appear that she had a stress test performed at [facility] in 2017 however the EKG that was faxed from the hospital was performed after that stress test was done. Patient will see primary care to get appropriate testing and once is cleared will be rescheduled for her surgery. I will see her back in the office for preoperative visit and signing consent. During this visit today I did discuss with her hysteroscopy DANDC what was entailed in this procedure and what she could expect pre and postoperatively. We discussed what type of anesthesia was used. We discussed if cancer or complex hyperplasia with atypia was found that she would need to see COLLEGE SERVICE OFFICER oncologist for hysterectomy. We also briefly discussed possible use of progesterone therapy. I spent a total of 20 minutes on the date of the service which included preparing to see the patient, [id number] patient care, completing clinical documentation, obtaining and/or reviewing separately obtained history, performing a medically appropriate examination, counseling and educating the patient/family/caregiver, and ordering medications, tests, or procedures. Fadumo De Paz MD [facility] 08-13-2023 History of Presen t illness Narrative Patient was originally scheduled for hysteroscopy D&C on August 22, 2023 however due to an EKG abnormality she needs a cardiac clearance prior to surgical intervention. Due to limited cardiac care in [place] plan will be to send to primary care for further workup and evaluation and medical clearance. This is a minor procedure that will involve MAC anesthesia. Patient arrived for her preop visit today I explained this to the patient and she understood. Discussed with the patient her abnormal findings on endometrial biopsy performed by Dr. Sullivan which revealed atypical cells hence requiring a hysteroscopy D&C to further evaluate. Discussed with the patient that if this indeed came back as cancer or hyperplasia with atypia that a hysterectomy would be indicated and cardiac clearance would be indicated for her as well to proceed with that surgery performed by COLLEGE SERVICE OFFICER oncologist. After reviewing her chart it does appear that she had a stress test performed at [facility] in 2017 however the EKG that was faxed from the hospital was performed after that stress test was done. Patient will see primary care to get appropriate testing and once is cleared will be rescheduled for her surgery. I will see her back in the office for preoperative visit and signing consent. During this visit today I did discuss with her hysteroscopy D&C what was entailed in this procedure and what she could expect pre and postoperatively. We discussed what type of anesthesia was used. We discussed if cancer or complex hyperplasia with atypia was found that she would need to see COLLEGE SERVICE OFFICER oncologist for hysterectomy. We also briefly discussed possible use of progesterone therapy. I spent a total of 20 minutes on the date of the service which included preparing to see the patient, [id number] patient care, completing clinical documentation, obtaining and/or reviewing separately obtained history, performing a medically appropriate examination, counseling and educating the patient/family/caregiver, and ordering medications, tests, or procedures. Fadumo De Paz MD documented in this encounter [facility] 08-13-2023 Miscellaneous Notes Patient saw DM 08/13/23. 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 Pt did state that she does not have a auto brake mechanic. Winsome Johnson LPN Patient of [facility]- was scheduled with me for D&C, hysteroscopy. Pt had PAT at [facility], had previous EKG that showed inferior ischemia and never had further work up. Pt needs to be cleared by cardiology. Please assist. Her surgery may need postponed until this is done. documented in this encounter [facility] 07-08-2023 Note HNO ID: [id number] Author: FARIBA SULLIVAN MD Service: ? Author Type: Physician Type: Progress Notes Filed: 07/08/2023 17:06 Note Text: Reproduction Technician offered: Patient accepts, visit chaperoned by Natividad Bradford MA. Elizabeth is a 77 year old Female who presents today for an endometrial biopsy for endometrial hyperplasia. test: n/a UNIVERSAL PROTOCOL / SAFETY CHECKLIST Procedure to be Performed: Endometrial Biopsy Sign In: A Moment of CARE was completed. Personnel directly involved with the procedure wore the appropriate PPE (Personal Protective Equipment). Patient/Surrogate Stated/Verified: PATIENT VERIFIED(optional for EMERGENT procedures): Patient name, Date of , Relevant allergies, and The intended procedure Time Out Communication: Intended patient and procedure match the source documents. Consent documented and matches the intended procedure. Relevant labs, photos, and/or imaging studies have been reviewed. No implant(s) inserted. Sign Out: SIGN OUT (optional for EMERGENT procedures): All specimen containers correctly labeled. All instruments, equipment, possible retained foreign bodies accounted for. Post-procedure follow-up management communicated and Plan of Care Visit completed when applicable. PROCEDURE: EXTERNAL GENITALIA: Normal in appearance without lesions VAGINA: Normal in appearance without lesions BIOPSY: Speculum placed into the vagina with excellent visualization of the cervix. Cervix cleaned with betadine. Anterior lip of cervix grasped with single toothed tenaculum. Uterus sounded to 7 cm. Pipelle inserted into the uterus without difficulty and endometrial biopsy obtained. Possible polyp at cervical os grasped with uterine forceps. Specimen labeled and sent to pathology. Hemostasis achieved. Procedure Summary: Patient tolerated procedure well. ASSESSMENT: thickening of endometrial lining PLAN: Specimens labeled and sent to Pathology. Will notify patient of results in 1-2 weeks. Post-procedure instructions reviewed and written material given to the patient. Fariba Sullivan MD [facility] 06-18-2023 Note HNO ID: [id number] Author: Vance Pulido Mammo Tech Service: ? Author Type: Wool Dyer Type: Progress Notes Filed: 06/18/2023 9:57 AM Note Text: Radiology Service Progress Note PATIENT NAME: Elizabeth Mcnally DATE OF SERVICE: June 18, 2023 TIME: 9:22 AM PATIENT IDENTITY VERIFICATION COMPLETED USING TWO (2) IDENTIFIERS: Name and Date of confirmed by patient verbally. FALL SCREENING: Has the patient had 2 falls in the last year or 1 fall with injury or currently using an Ambulatory Assistive Device (Walker, Cane, Wheelchair, Crutches, etc.)? No PATIENT GENDER DATA: Female. status: : No status: NO. PATIENT RELEVANT IMPLANT DATA REVIEWED: Not Applicable RADIOLOGY DEPARTMENT: Mammography PERIPHERAL IV DATA: Not applicable SIGNED BY: Dali Kothari June 18, 2023 9:22 AM [facility] 06-18-2023 History of Presen t illness Narrative Radiology Service Progress Note PATIENT NAME: Elizabeth Mcnally DATE OF SERVICE: June 18, 2023 TIME: 9:22 AM PATIENT IDENTITY VERIFICATION COMPLETED USING TWO (2) IDENTIFIERS: Name and Date of confirmed by patient verbally. FALL SCREENING: Has the patient had 2 falls in the last year or 1 fall with injury or currently using an Ambulatory Assistive Device (Walker, Cane, Wheelchair, Crutches, etc.)? No PATIENT GENDER DATA: Female. status: : No status: NO. PATIENT RELEVANT IMPLANT DATA REVIEWED: Not Applicable RADIOLOGY DEPARTMENT: Mammography PERIPHERAL IV DATA: Not applicable SIGNED BY: Dali Kothari June 18, 2023 9:22 AM documented in this encounter [facility] 06-06-2023 Note HNO ID: [id number] Author: Vance Maciel RN Service: ? Author Type: Registered Nurse Type: Progress Notes Filed: 06/06/2023 2:41 PM Note Text: CENTRAL NICOL[facility]S NURSE - CHART REVIEW Provider [facility] Action Chart review 02/21/23 [facility] ED for left lower leg cellulitis with increasing pain, redness and swelling in past 2 days. Also c/o dizziness. Currently on Keflex. Pt concerned for C. Diff as she has had it before but denies diarrhea at this time. DC home with Keflex and Meclizine and PCP f/u. 02/27/23 No encounter progress notes in [facility] Care Everywhere for this date. Per PCP f/u visit 03/06/23, pt was dx with C. Diff diarrhea at the ED on 02/27/23. Pt had not f/u with Infectious Disease as recommended. Pt had been started on Vancomycin by the ED and f/u with ID. Left leg cellulitis resolving. Left leg DVT ruled out by stat ultrasound. Pt identified by name and . Reason for Review: Payor request Patient Attributed To: QAE Payer: [email or web address] Chart Review For: Utilization: ED Total Patient High CostTotal Patient High Cost {HIGH COST:730122) Quality measure review Payor request for assistance Action Taken: Data submitted to payor Vance Maciel RN June 06, 2023 2:12 PM [facility] 06-06-2023 History of Presen t illness Narrative CENTRAL NICOLÁS NURSE - CHART REVIEW Provider [facility] Action Chart review 02/21/23 [facility] ED for left lower leg cellulitis with increasing pain, redness and swelling in past 2 days. Also c/o dizziness. Currently on Keflex. Pt concerned for C. Diff as she has had it before but denies diarrhea at this time. DC home with Keflex and Meclizine and PCP f/u. 02/27/23 No encounter progress notes in [facility] Care Everywhere for this date. Per PCP f/u visit 03/06/23, pt was dx with C. Diff diarrhea at the ED on 02/27/23. Pt had not f/u with Infectious Disease as recommended. Pt had been started on Vancomycin by the ED and f/u with ID. Left leg cellulitis resolving. Left leg DVT ruled out by stat ultrasound. Pt identified by name and . Reason for Review: Payor request Patient Attributed To: ISRAEL Payer: JOHN Chart Review For: Utilization: ED Total Patient High CostTotal Patient High Cost {HIGH COST:005377) Quality measure review Payor request for assistance Action Taken: Data submitted to payor Vance Maciel RN June 06, 2023 2:12 PM documented in this encounter [facility] 06-06-2023 Note Patient Outreach (AM [facility]) ELIZABETH MCNALLY ([id number]) 1945 F Date Time Provider Department 06/06/23 [place] [facility] [place] visit today, we recorded the following information about you: Vance Maciel RN 06/06/2023 2:41 PM Signed CC SATSOP NICOLÁS NURSE - CHART REVIEW Provider [facility] Action Chart review 02/21/23 [facility] [place] ED for left lower leg cellulitis with increasing pain, redness and swelling in past 2 days. Also c/o dizziness. Currently on Keflex. Pt concerned for C. Diff as she has had it before but denies diarrhea at this time. DC home with Keflex and Meclizine and PCP f/u. 02/27/23 No encounter progress notes in [facility] Care Everywhere for this date. Per PCP f/u visit 03/06/23, pt was dx with C. Diff diarrhea at the ED on 02/27/23. Pt had not f/u with Infectious Disease as recommended. Pt had been started on Vancomycin by the ED and f/u with ID. Left leg cellulitis resolving. Left leg DVT ruled out by stat ultrasound. Pt identified by name and . Reason for Review: Payor request Patient Attributed To: ISRAEL Payer: [email or web address] Chart Review For: Utilization: ED Total Patient High CostTotal Patient High Cost {HIGH COST:294850) Quality measure review Payor request for assistance Action Taken: Data submitted to payor Vance Maciel RN June 06, 2023 2:12 PM Allergies As of Date: 06/06/2023 Noted Allergy Reaction MAR (FEXOFENADINE HCL) 11/07/2005 2 - Rash SINGULAIR (MONTELUKAST) 01/24/2016 2 - Rash Comments: itching and rash (tried twice) Date Reviewed: 05/20/2023 Reviewed by: Winsome Mcmanus, RT(R) - Fully Assessed Prescriptions as of 06/06/2023 - miSOPROStol (CYTOTEC) 200 mcg tablet Take 2 tabs orally the night prior to procedure and 2 tabs morning of procedure - Cholecalciferol, Vitamin D3, 50 mcg (2,000 unit) cap Take 1 capsule by mouth once daily. - aspirin 81 mg chewable tablet Take 1 tablet by mouth once daily. - fluticasone (FLONASE) 50 mcg/actuation nasal spray Use 2 Sprays in each nostril once daily. Problem List As Of Date 06/06/2023 Noted Resolved Impaired fasting glucose [R73.01] 10/03/2009 Routine general medical examination at [facility]*10/03/2009 04/20/2012 Class: Chronic Mixed hyperlipidemia [E78.2] 10/03/2009 Venous insufficiency [I87.2] 10/03/2009 Routine gynecological examination [Z01.419] 01/02/2010 04/20/2012 Class: Chronic Adjustment reaction [F43.20] 03/01/2010 Marital conflict [Z63.0] 03/01/2010 Lupus (HCC) [M32.9] 01/05/2014 10/13/2020 Allergic rhinitis [J30.9] 01/05/2014 Allergy-induced asthma [J45.909] 01/05/2014 Right knee pain [M25.561] 02/23/2014 Vitamin D deficiency [E55.9] 02/23/2014 Thoracic or lumbosacral neuritis or radiculitis*07/04/2014 Medicare annual wellness visit, subsequent [Z00*07/31/2017 Screening for colon cancer [Z12.11] 07/31/2017 Primary osteoarthritis of left knee [M17.12] 11/18/2017 Stage 3a chronic kidney disease (HCC) [N18.31] 02/25/2019 Varicose veins of both lower extremities [I83.9*09/08/2019 Medication management [Z79.899] 09/08/2019 Encounter for screening mammogram for breast ca*09/08/2019 Synovial cyst of left popliteal space [M71.22] 08/04/2020 Bilateral leg edema [R60.0] 08/11/2020 Hypersomnia [G47.10] 03/14/2021 Obesity, Class II, BMI 35-39.9 [E66.9] 03/14/2021 Chronic pain of both knees [M25.561, M25.562, G*05/16/2021 Advance directive discussed with patient [Z71.8*09/10/2021 Arthritis of both hips [M16.0] 03/13/2022 Fecal urgency [R15.2] 07/30/2022 Remote history of stroke [Z86.73] 12/23/2022 Lung nodules [R91.8] 04/24/2023 Encounter Status:Closed by VANCE MACIEL on 06/06/23 [facility] 06-05-2023 Miscellaneous Notes Orders sent. Kyra Pearson APRN.CNM Called patient to reschedule appt. so provider can send in Cytotec for EMB. Patient is rescheduled for 12/11/23, her preferred pharmacy is [facility] in [place]. Gustabo Sapp Cma documented in this encounter [facility] 06-02-2023 Miscellaneous Notes Pt called and is notified of providers results and instructions. Pt voices understanding. Transferred to [facility] to set up appt with OBGYN. Natividad Del Cid RN Let patient know the US of her uterus shows thickening of her uterine lining and needs seen by FEED MANAGER. Order placed. The mass recently see where two benign fibroid tumors. documented in this encounter [facility] 05-29-2023 Note HNO ID: [id number] Author: Olga Gunn RDMS Service: ? Author Type: Dust Collector Attendant Type: Progress Notes Filed: 05/29/2023 11:57 AM Note Text: Radiology Service Progress Note PATIENT NAME: Elizabeth Mcnally DATE OF SERVICE: May 29, 2023 TIME: 11:57 AM PATIENT IDENTITY VERIFICATION COMPLETED USING TWO (2) IDENTIFIERS: Name and Date of confirmed by patient verbally. FALL SCREENING: Has the patient had 2 falls in the last year or 1 fall with injury or currently using an Ambulatory Assistive Device (Walker, Cane, Wheelchair, Crutches, etc.)? No PATIENT GENDER DATA: Female. status: : No status: NO. PATIENT RELEVANT IMPLANT DATA REVIEWED: Not Applicable RADIOLOGY DEPARTMENT: Ultrasound PERIPHERAL IV DATA: Not applicable SIGNED BY: Olga Gunn RDMS RVT May 29, 2023 11:57 AM [facility] 05-29-2023 History of Presen t illness Narrative Radiology Service Progress Note PATIENT NAME: Elizabeth Mcnally DATE OF SERVICE: May 29, 2023 TIME: 11:57 AM PATIENT IDENTITY VERIFICATION COMPLETED USING TWO (2) IDENTIFIERS: Name and Date of confirmed by patient verbally. FALL SCREENING: Has the patient had 2 falls in the last year or 1 fall with injury or currently using an Ambulatory Assistive Device (Walker, Cane, Wheelchair, Crutches, etc.)? No PATIENT GENDER DATA: Female. status: : No status: NO. PATIENT RELEVANT IMPLANT DATA REVIEWED: Not Applicable RADIOLOGY DEPARTMENT: Ultrasound PERIPHERAL IV DATA: Not applicable SIGNED BY: Olga Gunn RDMS RVT May 29, 2023 11:57 AM documented in this encounter [facility] 05-23-2023 Miscellaneous Notes Patient notified of results and provider's instructions. Patient verbalizes understanding. Pt was assisted in transfer to schedule US. Otoniel Boyer LPN Let patient know CT abdomen did not show any abnormal lymphadenopathy. There is a density in the central part of the uterus and needs US of this. Order placed. Ret of the abdominal structures were normal. documented in this encounter [facility] 05-20-2023 Note HNO ID: [id number] Author: Winsome Mcmanus RT(R) Service: ? Author Type: Wool Dyer Type: Progress Notes Filed: 05/20/2023 3:34 PM Note Text: Radiology Service Progress Note DATE OF SERVICE: May 20, 2023 TIME: 3:33 PM PATIENT IDENTITY VERIFICATION COMPLETED USING TWO (2) STANDARD IDENTIFIERS: Name and Date of confirmed by patient verbally. FALL SCREENING: Has the patient had 2 falls in the last year or 1 fall with injury or currently using an Ambulatory Assistive Device (Walker, Cane, Wheelchair, Crutches, etc.)? No PATIENT GENDER DATA: Female. status: : No status: NO. PATIENT RELEVANT IMPLANT DATA REVIEWED: Yes ALLERGIES: Reviewed and unchanged CONTRAST ALLERGY: NO. EXAM: CT -CONTRAST INDUCED NEPHROPATHY RISK FACTORS: Patient age > 60 years CREATININE: Creatinine Date Value Ref Range Status 04/02/2023 1.12 (H) 0.58 - 0.96 mg/dL Final 02/18/2023 1.22 (H) 0.58 - 0.96 mg/dL Final 09/14/2022 1.12 (H) 0.58 - 0.96 mg/dL Final Estimated Glomerular Filtration Rate Date Value Ref Range Status 04/02/2023 51 (L) >=60 mL/min/1.73m? Final Comment: Estimated Glomerular Filtration Rate (eGFR) is calculated using the 2020 CKD-EPI creatinine equation. This equation utilizes serum creatinine, sex, and age as parameters. The creatinine assay has traceable calibration to isotope dilution-mass spectrometry. Refer to KDIGO guidelines for clinical interpretation. In patients with unstable renal function, e.g. those with acute kidney injury, the eGFR may not accurately reflect actual GFR. eGFR- Date Value Ref Range Status 06/20/2021 51 Final P.O.C.T. RESULTS: POC done: Yes, See Lab Tab May 20, 2023 TREATMENT: N/A PERIPHERAL IV DATA: Ambulatory: A peripheral IV was started in the Left antecubital site with a Angio cath: 22 gauge. RADIOLOGY DEPARTMENT: CT; Exam(s) Completed: Abdomen/Pelvis SIGNATURE: RT Conchita(R) PATIENT NAME: Elizabeth Mcnally DATE: May 20, 2023 TIME: 3:33 PM [facility] 05-20-2023 History of Presen t illness Narrative Radiology Service Progress Note DATE OF SERVICE: May 20, 2023 TIME: 3:33 PM PATIENT IDENTITY VERIFICATION COMPLETED USING TWO (2) STANDARD IDENTIFIERS: Name and Date of confirmed by patient verbally. FALL SCREENING: Has the patient had 2 falls in the last year or 1 fall with injury or currently using an Ambulatory Assistive Device (Walker, Cane, Wheelchair, Crutches, etc.)? No PATIENT GENDER DATA: Female. status: : No status: NO. PATIENT RELEVANT IMPLANT DATA REVIEWED: Yes ALLERGIES: Reviewed and unchanged CONTRAST ALLERGY: NO. EXAM: CT -CONTRAST INDUCED NEPHROPATHY RISK FACTORS: Patient age > 60 years CREATININE: Creatinine Date Value Ref Range Status 04/02/2023 1.12 (H) 0.58 - 0.96 mg/dL Final 02/18/2023 1.22 (H) 0.58 - 0.96 mg/dL Final 09/14/2022 1.12 (H) 0.58 - 0.96 mg/dL Final Estimated Glomerular Filtration Rate Date Value Ref Range Status 04/02/2023 51 (L) >=60 mL/min/1.73m Final Comment: Estimated Glomerular Filtration Rate (eGFR) is calculated using the 2020 CKD-EPI creatinine equation. This equation utilizes serum creatinine, sex, and age as parameters. The creatinine assay has traceable calibration to isotope dilution-mass spectrometry. Refer to KDIGO guidelines for clinical interpretation. In patients with unstable renal function, e.g. those with acute kidney injury, the eGFR may not accurately reflect actual GFR. eGFR- Date Value Ref Range Status 06/20/2021 51 Final P.O.C.T. RESULTS: POC done: Yes, See Lab Tab May 20, 2023 TREATMENT: N/A PERIPHERAL IV DATA: Ambulatory: A peripheral IV was started in the Left antecubital site with a Angio cath: 22 gauge. RADIOLOGY DEPARTMENT: CT; Exam(s) Completed: Abdomen/Pelvis SIGNATURE: RT Conchita(R) PATIENT NAME: Elizabeth Mcnally DATE: May 20, 2023 TIME: 3:33 PM documented in this encounter [facility] 04-29-2023 Miscellaneous Notes Call to pt and she states that she spent half of a summer in a sanitarium and received medications while there and when she was d/c home shortly after. Notified her of of your instructions below. Verbalized understanding. Vashti Rosas Ma Find out from Elizabeth if she was treated for the Tb. These changes could be from that. Would not treat her with anything at this time since not having any symptoms. Call to pt and notified her of results and recommendations below. Pt denies any cough or fever, but states that when she was 12 or 14 years old she was dx with Tuberculosis. Could this be a possible cause? Additional question? Has a hole in left leg again, was wearing compression stockings. Was wearing a band-aid over area. Has followed instructions from [facility] to care for area. Has been a couple of days and the area has not closed up. When asked what the hole looks like she said it's just where the skin is wore off. States the area is bleeding on her pants, not appearing infected. Denies the area being warm to touch. She is asking what she should be putting on her leg, such as disinfectant or something else? Keep the area open? Hx of cellulitis. Has not seen Wound Center since December. This is the leg that previously she was in the hospital for. Due to hx of this leg and being in the hospital I suggested an OV to have leg evaluated, scheduled 11:00 am with Lorie Norton CNP. Pt was agreeable to this. States she is leaving next week and would rather have it looked at. Vashti Rosas Ma Tried to reach pt, VM not set up. Unable to leave message. Xiomara Arroyo Ma Tried calling patient no answer and voicemail was not set up Mery Kemp Ma Let patient know the CT of her chest shows some small nodules less then 6 mm. Would repeat scan in a year. There is also the possibility of a pneumonia. See if having any productive cough for fevers. If so will want to treat. If not will monitor since could be viral in nature. documented in this encounter [facility] 04-29-2023 Note HNO ID: [id number] Author: Lorie Norton APRN.BRICK SETTER OPERATOR Service: ? Author Type: Nurse Practitioner Type: Progress Notes Filed: 04/29/2023 11:16 AM Note Text: Chief Complaint Patient presents with: Follow Up: Open wound on left leg HPI Elizabeth Mcnally is a 77 year old female who presents here today for Above Complaints.. Patient presents for left leg wound. Patient has a history of wound and has been treated by wound center in the past. Patient is going on vacation soon and wanted to have area looked at. Past medical history, appointments, medications, allergies reviewed. Previous Medical History PAST MEDICAL HISTORY Diagnosis Date Adjustment reaction 03/01/2010 Allergic rhinitis 01/05/2014 Allergy-induced asthma 01/05/[address] Angel Isbell Arthritis of both hips 03/13/2022 Bilateral leg edema 08/11/2020 Breast density 06/27/2021 Left Chronic pain of both knees 05/16/2021 CKD (chronic kidney disease) stage 3, GFR 30-59 ml/min ([facility]) 02/25/2019 Fecal urgency 07/30/2022 Saw Gen Surgery 06/2022 and refused colonoscopy. 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 Patient denies known stroke history Right knee pain 02/23/2014 Under workman's comp Stage 3a chronic kidney disease (HCC) 02/25/2019 Synovial cyst of left popliteal space 08/04/2020 Thoracic or lumbosacral neuritis or radiculitis, unspecified 07/04/2014 Varicose veins of both lower extremities 09/08/2019 Lt>Rt Venous insufficiency 10/03/2009 Vitamin D deficiency Previous Surgical History PAST SURGICAL HISTORY Procedure Laterality Date BX OF BREAST; INCISIONAL Left 07/06/2021 LIGJ DIVJ AND/EXCJ VARICOSE VEIN CLUSTER 1 LEG Varicose Vein Surgery PAST SURGICAL HISTORY OF 05/1999 EXCISSION L FOOT LESIONS X2 PAST SURGICAL HISTORY OF 1973 LAPRASCOPY FOR FERTILITY STRESS TEST 08/05/2016 normal UNSPECIFIED ORAL SURGERY PROCEDURE, BY REPORT [place] teeth extracted/ and implant Family History FAMILY HISTORY Problem Relation Age of Onset Cancer Mother THROAT AND TONGUE FROM THIS AND ABOVE Arthritis Mother Rheumatoid other (HODGKINS DISEASE) Mother Diabetes Father Type 2 Stroke Father age 92 at time of other (KIDNEY FAILURE) Father FROM THIS Breast Cancer Other maternal first cousin Patient Allergies ALLERGIES Allergen Reactions Mar [Fexofenadi* Rash Singulair [[place]* Rash itching and rash (tried twice) Current Medications Current Outpatient Medications on File Prior to Visit Medication Sig Cholecalciferol, Vitamin D3, 50 mcg (2,000 unit) cap Take 1 capsule by mouth once daily. aspirin 81 mg chewable tablet Take 1 tablet by mouth once daily. fluticasone (FLONASE) 50 mcg/actuation nasal spray Use 2 Sprays in each nostril once daily. (Patient taking differently: Use 2 Sprays in each nostril once daily. PRN) No current facility-administered medications on file prior to visit. Social History Social History Tobacco Use Smoking status: Never Smokeless tobacco: Never Vaping Use Vaping Use: Never used Substance Use Topics Alcohol use: No Drug use: No Review of Symptoms REVIEW OF SYSTEMS SEE HPI EXAM: BP 130/74 Pulse 70 Resp 16 Wt 98.9 kg (218 lb) BMI 36.28 kg/m? General Appearance: Well appearing, alert, in no acute distress, well-hydrated, well nourished.. Extremities: quarter size skin tear to left anteriior dior. Small amount red and warm area to lateral side of skin tear. No drainage. Health Maintenance List RSV Vaccine(1 - 1-dose 60+ series) Never done DTaP,Tdap,Td Vaccine(3 - Td or Tdap) due on 04/09/2024 Covid-19 Vaccine( season) due on 04/09/2024 Serum Creatinine due on 04/02/2024 Hemoglobin/Hematocrit due on 04/02/2024 Annual PCP Team Chronic Disease Visit due on 04/09/2024 Diabetes Screening due on 04/02/2026 Lipid Screening due on 04/02/2028 Bone Density Screening Completed Advance Directive Discussion Completed Depression Assessment Completed Hepatitis C Screening Completed Shingrix Vaccine Completed Mammogram Screening Discontinued Spirometry Discontinued Influenza Vaccine Discontinued Colorectal Cancer Screening Discontinued Pneumococcal Vaccine: 65+ Discontinued ASSESSMENT/PLAN: 1. Cellulitis of skin - ICD9: 682.9, ICD10: L03.90 - Begin treatment with Cephalaxin (Keflex) - No lymphangetic streaking, (more content not included)... [facility] 04-29-2023 History of Presen t illness Narrative Chief Complaint Patient presents with: Follow Up: Open wound on left leg HPI Elizabeth Mcnally is a 77 year old female who presents here today for Above Complaints.. Patient presents for left leg wound. Patient has a history of wound and has been treated by wound center in the past. Patient is going on vacation soon and wanted to have area looked at. Past medical history, appointments, medications, allergies reviewed. Previous Medical History PAST MEDICAL HISTORY Diagnosis Date Adjustment reaction 03/01/2010 Allergic rhinitis 01/05/2014 Allergy-induced asthma 01/05/[address] Angel Isbell Arthritis of both hips 03/13/2022 Bilateral leg edema 08/11/2020 Breast density 06/27/2021 Left Chronic pain of both knees 05/16/2021 CKD (chronic kidney disease) stage 3, GFR 30-59 ml/min ([facility]) 02/25/2019 Fecal urgency 07/30/2022 Saw Gen Surgery 06/2022 and refused colonoscopy. 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 Patient denies known stroke history Right knee pain 02/23/2014 Under workman's comp Stage 3a chronic kidney disease ([facility]) 02/25/2019 Synovial cyst of left popliteal space 08/04/2020 Thoracic or lumbosacral neuritis or radiculitis, unspecified 07/04/2014 Varicose veins of both lower extremities 09/08/2019 Lt>Rt Venous insufficiency 10/03/2009 Vitamin D deficiency Previous Surgical History PAST SURGICAL HISTORY Procedure Laterality Date BX OF BREAST; INCISIONAL Left 07/06/2021 LIGJ DIVJ &/EXCJ VARICOSE VEIN CLUSTER 1 LEG Varicose Vein Surgery PAST SURGICAL HISTORY OF 05/1999 EXCISSION L FOOT LESIONS X2 PAST SURGICAL HISTORY OF 1973 LAPRASCOPY FOR FERTILITY STRESS TEST 08/05/2016 normal UNSPECIFIED ORAL SURGERY PROCEDURE, BY REPORT [place] teeth extracted/ and implant Family History FAMILY HISTORY Problem Relation Age of Onset Cancer Mother THROAT AND TONGUE FROM THIS AND ABOVE Arthritis Mother Rheumatoid other (HODGKINS DISEASE) Mother Diabetes Father Type 2 Stroke Father age 92 at time of other (KIDNEY FAILURE) Father FROM THIS Breast Cancer Other maternal first cousin Patient Allergies ALLERGIES Allergen Reactions Mar [Fexofenadi* Rash Singulair [[place]* Rash itching and rash (tried twice) Current Medications Current Outpatient Medications on File Prior to Visit Medication Sig Cholecalciferol, Vitamin D3, 50 mcg (2,000 unit) cap Take 1 capsule by mouth once daily. aspirin 81 mg chewable tablet Take 1 tablet by mouth once daily. fluticasone (FLONASE) 50 mcg/actuation nasal spray Use 2 Sprays in each nostril once daily. (Patient taking differently: Use 2 Sprays in each nostril once daily. PRN) No current facility-administered medications on file prior to visit. Social History Social History Tobacco Use Smoking status: Never Smokeless tobacco: Never Vaping Use Vaping Use: Never used Substance Use Topics Alcohol use: No Drug use: No Review of Symptoms REVIEW OF SYSTEMS SEE HPI EXAM: BP 130/74 Pulse 70 Resp 16 Wt 98.9 kg (218 lb) BMI 36.28 kg/m General Appearance: Well appearing, alert, in no acute distress, well-hydrated, well nourished.. Extremities: quarter size skin tear to left anteriior dior. Small amount red and warm area to lateral side of skin tear. No drainage. Health Maintenance List RSV Vaccine(1 - 1-dose 60+ series) Never done DTaP,Tdap,Td Vaccine(3 - Td or Tdap) due on 04/09/2024 Covid-19 Vaccine( season) due on 04/09/2024 Serum Creatinine due on 04/02/2024 Hemoglobin/Hematocrit due on 04/02/2024 Annual PCP Team Chronic Disease Visit due on 04/09/2024 Diabetes Screening due on 04/02/2026 Lipid Screening due on 04/02/2028 Bone Density Screening Completed Advance Directive Discussion Completed Depression Assessment Completed Hepatitis C Screening Completed Shingrix Vaccine Completed Mammogram Screening Discontinued Spirometry Discontinued Influenza Vaccine Discontinued Colorectal Cancer Screening Discontinued Pneumococcal Vaccine: 65+ Discontinued ASSESSMENT/PLAN: 1. Cellulitis of skin - ICD9: 682.9, ICD10: L03.90 - Begin treatment with Cephalaxin (Keflex) - No lymphangetic streaking, this was defined for patient to watch for and to seek medical care immediately if appears - CEPHALEXIN 500 MG CAPSULE Lorie Norton APRN.BRICK SETTER OPERATOR documented in this encounter [facility] 04-21-2023 Note HNO ID: [id number] Author: Angelique Blackwood RT(R) Service: Radiology Author Type: Technologist Type: Progress Notes Filed: 04/21/2023 9:55 AM Note Text: Radiology Service Progress Note PATIENT NAME: Elizabeth Mcnally DATE OF SERVICE: April 21, 2023 TIME: 9:54 AM PATIENT IDENTITY VERIFICATION COMPLETED USING TWO (2) IDENTIFIERS: Name and Date of confirmed by patient verbally. FALL SCREENING: Has the patient had 2 falls in the last year or 1 fall with injury or currently using an Ambulatory Assistive Device (Walker, Cane, Wheelchair, Crutches, etc.)? No PATIENT GENDER DATA: Female. status: : No status: N/A PATIENT RELEVANT IMPLANT DATA REVIEWED: Not Applicable RADIOLOGY DEPARTMENT: Ultrasound PERIPHERAL IV DATA: Not applicable SIGNED BY: Angelique Blackwood Rdms April 21, 2023 9:54 AM [facility] 04-21-2023 Note HNO ID: [id number] Author: Winsome Mcmanus RT(R) Service: ? Author Type: Wool Dyer Type: Progress Notes Filed: 04/21/2023 4:00 PM Note Text: Radiology Service Progress Note PATIENT NAME: Elizabeth Mcnally DATE OF SERVICE: April 21, 2023 TIME: 4:00 PM PATIENT IDENTITY VERIFICATION COMPLETED USING TWO (2) IDENTIFIERS: Name and Date of confirmed by patient verbally. FALL SCREENING: Has the patient had 2 falls in the last year or 1 fall with injury or currently using an Ambulatory Assistive Device (Walker, Cane, Wheelchair, Crutches, etc.)? No PATIENT GENDER DATA: Female. status: : No status: NO. PATIENT RELEVANT IMPLANT DATA REVIEWED: Yes RADIOLOGY DEPARTMENT: CT; Exam(s) Completed: Chest PERIPHERAL IV DATA: Not applicable SIGNED BY: RT Conchita(R) April 21, 2023 4:00 PM [facility] 04-21-2023 History of Presen t illness Narrative Radiology Service Progress Note PATIENT NAME: Elizabeth Mcnally DATE OF SERVICE: April 21, 2023 TIME: 9:54 AM PATIENT IDENTITY VERIFICATION COMPLETED USING TWO (2) IDENTIFIERS: Name and Date of confirmed by patient verbally. FALL SCREENING: Has the patient had 2 falls in the last year or 1 fall with injury or currently using an Ambulatory Assistive Device (Walker, Cane, Wheelchair, Crutches, etc.)? No PATIENT GENDER DATA: Female. status: : No status: N/A PATIENT RELEVANT IMPLANT DATA REVIEWED: Not Applicable RADIOLOGY DEPARTMENT: Ultrasound PERIPHERAL IV DATA: Not applicable SIGNED BY: Angelique Blackwood Rdms April 21, 2023 9:54 AM documented in this encounter [facility] 04-21-2023 History of Presen t illness Narrative Radiology Service Progress Note PATIENT NAME: Elizabeth Mcnally DATE OF SERVICE: April 21, 2023 TIME: 4:00 PM PATIENT IDENTITY VERIFICATION COMPLETED USING TWO (2) IDENTIFIERS: Name and Date of confirmed by patient verbally. FALL SCREENING: Has the patient had 2 falls in the last year or 1 fall with injury or currently using an Ambulatory Assistive Device (Walker, Cane, Wheelchair, Crutches, etc.)? No PATIENT GENDER DATA: Female. status: : No status: NO. PATIENT RELEVANT IMPLANT DATA REVIEWED: Yes RADIOLOGY DEPARTMENT: CT; Exam(s) Completed: Chest PERIPHERAL IV DATA: Not applicable SIGNED BY: RT Conchita(R) April 21, 2023 4:00 PM documented in this encounter [facility] 04-15-2023 Miscellaneous Notes TC to patient who is agreeable to CT. Patient is asking if she can have CT completed same day as her US (04/21). Please contact patient and advise. Thank you. DESTINY Matthew Spoke with pt, she was at dentist. Will call back. Xiomara Arroyo Ma Let patient know chest x-ray was ok. I have ordered a chest CT to further r/o any abnormalities that may be causing weight loss. documented in this encounter [facility] 04-10-2023 Miscellaneous Notes Patient notified and verbalized understanding Yesica Glaser Cma Please let patient know her labs are normal. documented in this encounter [facility] 04-09-2023 Note HNO ID: [id number] Author: Alicia Wilkerson RT(R) Service: Radiology Author Type: Technologist Type: Progress Notes Filed: 04/09/2023 10:47 AM Note Text: Radiology Service Progress Note PATIENT NAME: Elizabeth Mcnally DATE OF SERVICE: April 09, 2023 TIME: 10:35 AM PATIENT IDENTITY VERIFICATION COMPLETED USING TWO (2) IDENTIFIERS: Name and Date of confirmed by patient verbally. FALL SCREENING: Has the patient had 2 falls in the last year or 1 fall with injury or currently using an Ambulatory Assistive Device (Walker, Cane, Wheelchair, Crutches, etc.)? No PATIENT GENDER DATA: Female. status: : No status: NO. PATIENT RELEVANT IMPLANT DATA REVIEWED: Not Applicable RADIOLOGY DEPARTMENT: General X-ray: Exam(s) Completed: Chest X-Ray PERIPHERAL IV DATA: Not applicable SIGNED BY: RT Yaw(R) April 09, 2023 10:35 AM [facility] 04-09-2023 Note HNO ID: [id number] Author: Frank Salinas MD Service: ? Author Type: Physician Type: Progress Notes Filed: 04/09/2023 1:47 PM Note Text: Chief Complaint Patient presents with: F/U 6 months HPI Elizabeth Mcnally is a 77 year old female who presents here today for 6 month follow up. Patient with hx of hyperlipidemia, asthma, fecal urgency, CKD, impaired fasting glucose, obesity, vit d def, and those as below. In the past 12 months she has lost 25-30 lbs and cannot say she has done anything different. Patient is here today for her 6 month follow up. Patient has been recovering since November 2022 with cellulitis Patient is still having swelling in left lower leg. Patient is going to get compression stockings. They are on order Patient does see Dr. Frey - Cerebrovascular last visit was 03/17/2023. Office visit - [facility] er follow up 03/06/2023 Since November 2022 patient has been recovering from cellulitis and been in the hospital several times. Patient is here today for ER (02/27/2023) follow up for Diarrhea and C-diff. Patient is still taking vancomycin. She is having loose stools but not as loose as it was the day she was in the ER. On 02/27/2023 the stool was very loose just like when she had been previously diagnosed with C. Diff. She is taking a probiotic now. Has not had any fevers or chills. The left leg (which had the cellulitis) has some mild discomfort and may last a day or so and then resolves. Since Friday has had increased swelling of the left lower extremity. They did do US of the left calf in the ER on 02/27/2023 but at that time she had no pitting edema Patient has not made an appt with the ID provider as advised by ER. Past medical history, appointments, medications, allergies reviewed. Previous Medical History PAST MEDICAL HISTORY Diagnosis Date Adjustment reaction 03/01/2010 Allergic rhinitis 01/05/2014 Allergy-induced asthma 01/05/[address] Angel Isbell Arthritis of both hips 03/13/2022 Bilateral leg edema 08/11/2020 Breast density 06/27/2021 Left CKD (chronic kidney disease) stage 3, GFR 30-59 ml/min ([facility]) 02/25/2019 Fecal urgency 07/30/2022 Saw Gen Surgery 06/2022 and refused colonoscopy. 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 03/01/2010 Primary osteoarthritis of left knee 11/18/2017 Proteinuria 02/13/2014 Repeat test was neg Right knee pain 02/23/2014 Under workman's comp Synovial cyst of left popliteal space 08/04/2020 Thoracic or lumbosacral neuritis or radiculitis, unspecified 07/04/2014 Varicose veins of both lower extremities 09/08/2019 Lt>Rt Venous insufficiency 10/03/2009 Vitamin D deficiency Previous Surgical History PAST SURGICAL HISTORY Procedure Laterality Date BX OF BREAST; INCISIONAL Left 07/06/2021 LIGJ DIVJ AND/EXCJ VARICOSE VEIN CLUSTER 1 LEG Varicose Vein Surgery PAST SURGICAL HISTORY OF 05/1999 EXCISSION L FOOT LESIONS X2 PAST SURGICAL HISTORY OF 1973 LAPRASCOPY FOR FERTILITY STRESS TEST 08/05/2016 normal UNSPECIFIED ORAL SURGERY PROCEDURE, BY REPORT [place] teeth extracted/ and implant Family History FAMILY HISTORY Problem Relation Age of Onset Cancer Mother THROAT AND TONGUE FROM THIS AND ABOVE Arthritis Mother Rheumatoid other (HODGKINS DISEASE) Mother Diabetes Father Type 2 Stroke Father age 92 at time of other (KIDNEY FAILURE) Father FROM THIS Breast Cancer Other maternal first cousin Patient Allergies ALLERGIES Allergen Reactions Mar [Fexofenadi* Rash Singulair [[place]* Rash itching and rash (tried twice) Current Medications Current Outpatient Medications on File Prior to Visit Medication Sig aspirin 81 mg chewable tablet Take by mouth. fluticasone (FLONASE) 50 mcg/actuation nasal spray Use 2 Sprays in each nostril once daily. No current facility-administered medications on file prior to visit. Social History Social History Tobacco Use Smoking status: Never Smokeless tobacco: Never Vaping Use Vaping Use: Never used Substance Use Topics Alcohol use: No Drug use: No Review of Symptoms REVIEW OF SYSTEMS GENERAL: Negative for malaise, fever, Positive for significant weight loss of about 30 lbs over the past year. NECK: Negative for lumps, goiter, pain and significant neck swelling RESPIRATORY: Negative for cough, hemoptysis, wheezing, COPD, dyspnea or shortness of breath CARDIOVASCULAR: Negative for chest pain, hypertension, CHF or palpitations. Getting some swelling on the left. GI: No nausea, vomiting, or diarrhea, No heartburn or reflux symptoms, and no melena or hematochezia. : no dysuria, frequency of hematuria. HEMATOLOGY/LYMPHOLOGY: Negat (more content not included)... [facility] 04-09-2023 Instructions Frank Salinas MD - 04/09/2023 10:00 AM EDT Please get labs and urine test done on or after 09/26/2023 prior to your next visit. documented in this encounter [facility] 04-09-2023 History of Presen t illness Narrative Chief Complaint Patient presents with: F/U 6 months HPI Elizabeth Mcnally is a 77 year old female who presents here today for 6 month follow up. Patient with hx of hyperlipidemia, asthma, fecal urgency, CKD, impaired fasting glucose, obesity, vit d def, and those as below. In the past 12 months she has lost 25-30 lbs and cannot say she has done anything different. Patient is here today for her 6 month follow up. Patient has been recovering since November 2022 with cellulitis Patient is still having swelling in left lower leg. Patient is going to get compression stockings. They are on order Patient does see Dr. Frey - Jenni last visit was 03/17/2023. Office visit - [facility] er follow up 03/06/2023 Since November 2022 patient has been recovering from cellulitis and been in the hospital several times. Patient is here today for ER (02/27/2023) follow up for Diarrhea and C-diff. Patient is still taking vancomycin. She is having loose stools but not as loose as it was the day she was in the ER. On 02/27/2023 the stool was very loose just like when she had been previously diagnosed with C. Diff. She is taking a probiotic now. Has not had any fevers or chills. The left leg (which had the cellulitis) has some mild discomfort and may last a day or so and then resolves. Since Friday has had increased swelling of the left lower extremity. They did do US of the left calf in the ER on 02/27/2023 but at that time she had no pitting edema Patient has not made an appt with the ID provider as advised by ER. Past medical history, appointments, medications, allergies reviewed. Previous Medical History PAST MEDICAL HISTORY Diagnosis Date Adjustment reaction 03/01/2010 Allergic rhinitis 01/05/2014 Allergy-induced asthma 01/05/[address] Angel Isbell Arthritis of both hips 03/13/2022 Bilateral leg edema 08/11/2020 Breast density 06/27/2021 Left CKD (chronic kidney disease) stage 3, GFR 30-59 ml/min ([facility]) 02/25/2019 Fecal urgency 07/30/2022 Saw Gen Surgery 06/2022 and refused colonoscopy. 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 03/01/2010 Primary osteoarthritis of left knee 11/18/2017 Proteinuria 02/13/2014 Repeat test was neg Right knee pain 02/23/2014 Under workman's comp Synovial cyst of left popliteal space 08/04/2020 Thoracic or lumbosacral neuritis or radiculitis, unspecified 07/04/2014 Varicose veins of both lower extremities 09/08/2019 Lt>Rt Venous insufficiency 10/03/2009 Vitamin D deficiency Previous Surgical History PAST SURGICAL HISTORY Procedure Laterality Date BX OF BREAST; INCISIONAL Left 07/06/2021 LIGJ DIVJ &/EXCJ VARICOSE VEIN CLUSTER 1 LEG Varicose Vein Surgery PAST SURGICAL HISTORY OF 05/1999 EXCISSION L FOOT LESIONS X2 PAST SURGICAL HISTORY OF 1973 LAPRASCOPY FOR FERTILITY STRESS TEST 08/05/2016 normal UNSPECIFIED ORAL SURGERY PROCEDURE, BY REPORT Boone teeth extracted/ and implant Family History FAMILY HISTORY Problem Relation Age of Onset Cancer Mother THROAT AND TONGUE FROM THIS AND ABOVE Arthritis Mother Rheumatoid other (HODGKINS DISEASE) Mother Diabetes Father Type 2 Stroke Father age 92 at time of other (KIDNEY FAILURE) Father FROM THIS Breast Cancer Other maternal first cousin Patient Allergies ALLERGIES Allergen Reactions Mar [Fexofenadi* Rash Singulair [Monteluk* Rash itching and rash (tried twice) Current Medications Current Outpatient Medications on File Prior to Visit Medication Sig aspirin 81 mg chewable tablet Take by mouth. fluticasone (FLONASE) 50 mcg/actuation nasal spray Use 2 Sprays in each nostril once daily. No current facility-administered medications on file prior to visit. Social History Social History Tobacco Use Smoking status: Never Smokeless tobacco: Never Vaping Use Vaping Use: Never used Substance Use Topics Alcohol use: No Drug use: No Review of Symptoms REVIEW OF SYSTEMS GENERAL: Negative for malaise, fever, Positive for significant weight loss of about 30 lbs over the past year. NECK: Negative for lumps, goiter, pain and significant neck swelling RESPIRATORY: Negative for cough, hemoptysis, wheezing, COPD, dyspnea or shortness of breath CARDIOVASCULAR: Negative for chest pain, hypertension, CHF or palpitations. Getting some swelling on the left. GI: No nausea, vomiting, or diarrhea, No heartburn or reflux symptoms, and no melena or hematochezia. : no dysuria, frequency of hematuria. HEMATOLOGY/LYMPHOLOGY: Negative for prolonged bleeding, bruising easily or swollen nodes NEURO: No history of headaches, syncope, paralysis, seizures or tremors EXAM: BP 128/78 (BP Site: Right Arm, BP Position: Sitting, BP Cuff Size: Large Adult) Pulse 70 Resp 18 Wt 98.9 kg (218 lb) BMI 36.28 kg/m Last 15 Encounter Wt Readings: Date: Wt: 04/09/2023 98.9 kg (218 lb) 03/17/2023 99.7 kg (219 lb 11.2 oz) 03/06/2023 98.4 kg (217 lb) 02/18/2023 98.9 kg (218 lb) 12/26/2022 101.2 kg (223 lb) 12/23/2022 103 kg (227 lb) 12/19/2022 104.8 kg (231 lb) 11/12/2022 103.4 kg (228 lb) 09/19/2022 104.8 kg (231 lb) 08/02/2022 105.1 kg (231 lb 12.8 oz) 07/25/2022 105.2 kg (232 lb) 07/19/2022 106.1 kg (234 lb) 06/11/2022 105.7 kg (233 lb) 03/29/2022 111.1 kg (245 lb) 03/14/2022 112.9 kg (249 lb) General Appearance: Well appearing, alert, in no acute distress, well-hydrated, well nourished.. Neck: Supple, no adenopathy; thyroid symmetric, normal size, no bruits. Lungs: Lungs clear to auscultation. No wheezing, rhonchi, rales.. Heart: RRR without murmur, gallop, or rubs. No ectopy. Abdomen: Normal abdominal exam, Abdomen soft, non-tender. Bowel sounds normal. No masses, organomegaly. Extremities: No deformities, . Good capillary refill. Has mild edema in the left lower extremity. Leg is erythematous but not tender or warm to touch. Peripheral Pulses: Normal. Neurologic: Gait normal. Sensation grossly intact.. Health Maintenance List DTaP,Tdap,Td Vaccine(3 - Td or Tdap) due on 10/04/2019 Covid-19 Vaccine(5 - 2022- season) due on 02/28/2023 Annual PCP Team Chronic Disease Visit due on 03/06/2024 Serum Creatinine due on 04/02/2024 Hemoglobin/Hematocrit due on 04/02/2024 Diabetes Screening due on 04/02/2026 Lipid Screening due on 04/02/2028 Bone Density Screening Completed Advance Directive Discussion Completed Depression Assessment Completed Hepatitis C Screening Completed Shingrix Vaccine Completed Mammogram Screening Discontinued Spirometry Discontinued Influenza Vaccine Discontinued Colorectal Cancer Screening Discontinued Pneumococcal Vaccine: 65+ Discontinued Data reviewed Component Latest Ref Rng & Units 09/14/2022 02/18/2023 04/02/2023 WBC 3.70 - 11.00 k/uL 6.83 6.53 RBC 3.90 - 5.20 m/uL 5.15 5.43 (H) Hemoglobin 11.5 - 15.5 g/dL 13.8 14.3 Hematocrit 36.0 - 46.0 % 45.4 46.4 (H) MCV 80.0 - 100.0 fL 88.2 85.5 MCH 26.0 - 34.0 pg 26.8 26.3 MCHC 30.5 - 36.0 g/dL 30.4 (L) 30.8 RDW-CV 11.5 - 15.0 % 14.6 14.4 Platelet Count 150 - 400 k/uL 195 197 MPV 9.0 - 12.7 fL 10.1 9.8 Neut% % 49.2 49.6 Abs Neut (ANC) 1.45 - 7.50 k/uL 3.36 3.24 Lymph% % 32.4 33.8 Abs Lymph 1.00 - 4.00 k/uL 2.21 2.21 Ware% % 11.3 9.8 Abs Ware <0.87 k/uL 0.77 0.64 Eosin% % 6.0 5.7 Abs Eosin <0.46 k/uL 0.41 0.37 Baso% % 0.7 0.8 Abs Baso <0.11 k/uL 0.05 0.05 Immature Gran % % 0.4 0.3 IMMATURE GRANS (ABS) <0.10 k/uL 0.03 <0.03 NRBC /100 WBC 0.0 0.0 Absolute nRBC <0.01 k/uL <0.01 <0.01 DTYPE Auto Auto Color Yellow Light Yellow Clarity Clear Clear Glucose, Urine Trace, Negative Negative Bilirubin, Urine Negative Negative Ketones, Urine Trace, Negative Negative Specific [place], Ur 1.005 - 1.030 1.018 Hemoglobin/Blood,Ur Negative, Trace Negative pH, Urine 5.0 - 8.0 6.5 Protein, Urine Trace, Negative Trace Urobilinogen Negative Negative Nitrites Negative Negative Leukest Negative, 25 Nagi/uL 75 Nagi/uL (A) WBC, Urine 0-5 /HPF 6-10 /HPF (A) RBC, Urine 0-3 /HPF 0-3 /HPF Epithelial Cells /HPF Few Non-Squamous Epithelial Cells None Seen /HPF Few (A) Hyaline Cast 0 /LPF 4-10 /LPF (A) Protein, Total 6.3 - 8.0 g/dL 7.4 6.9 Albumin 3.9 - 4.9 g/dL 4.2 4.1 Calcium 8.5 - 10.2 mg/dL 9.3 9.3 9.1 Bilirubin, Total 0.2 - 1.3 mg/dL 0.4 0.3 Alkaline Phosphatase 34 - 123 U/L 72 71 AST 13 - 35 U/L 22 20 ALT 7 - 38 U/L 15 9 Glucose 74 - 99 mg/dL 110 (H) 87 106 (H) BUN 7 - 21 mg/dL 16 17 14 Creatinine 0.58 - 0.96 mg/dL 1.12 (H) 1.22 (H) 1.12 (H) Sodium 136 - 144 mmol/L 143 140 142 Potassium 3.7 - 5.1 mmol/L 4.2 4.5 4.3 Chloride 97 - 105 mmol/L 105 105 106 (H) CO2 22 - 30 mmol/L 28 25 28 Anion Gap 9 - 18 mmol/L 10 10 8 (L) eGFR >=60 mL/min/1.73m 52 (L) 46 (L) 51 (L) Total Cholesterol, Nonfasting <200 mg/dL 242 (H) 226 (H) Triglycerides, Nonfasting <150 mg/dL 122 149 HDL Cholesterol, Nonfasting >39 mg/dL 60 51 LDL Cholesterol, Nonfasting <100 mg/dL 158 (H) 145 (H) Non HDL Cholesterol, Nonfasting <130 mg/dL 182 (H) 175 (H) VLDL Cholesterol, Nonfasting <30 mg/dL 24 30 (H) Total Chol/HDL Ratio, Nonfasting <5.10 mg/dL 4.03 4.43 LDL/HDL Ratio, Nonfasting <2.54 mg/dL 2.63 (H) 2.84 (H) Hemoglobin A1C 4.3 - 5.6 % 6.0 (H) 5.6 Estimated Average Glucose mg/dL 126 114 Vitamin D 25 Hydroxy 31.0 - 80.0 ng/mL 24.5 (L) 18.2 (L) A/P ASSESSMENT/PLAN: 1. Mixed hyperlipidemia - ICD9: 272.2, ICD10: E78.2 (primary diagnosis) - Uncontrolled - Improving control - Counseled on healthy diet and regular exercise - Discussed need for and benefit of weight loss. BMI 36.28 kg/(m^2) 2. Impaired fasting glucose - ICD9: 790.21, ICD10: R73.01 - improved. 3. Bilateral leg edema - ICD9: 782.3, ICD10: R60.0 - none on the right and minimal on the left. - patient awaiting support socks. 4. Extrinsic asthma, unspecified asthma severity, unspecified whether complicated, unspecified whether persistent - ICD9: 493.00, ICD10: J45.909 - Mild intermittent asthma stable - Avoidance of triggers recommended 5. Adjustment disorder, unspecified type - ICD9: 309.9, ICD10: F43.20 - stable and not needing medication. 6. Stage 3a chronic kidney disease (HCC) - ICD9: 585.3, ICD10: N18.31 - dicussed avoid NSAID's and increased water intake. 7. Obesity, Class II, BMI 35-39.9 - ICD9: 278.00, ICD10: E66.9 - patient has lost 30 lbs in the past year. This may just be from being more active but will proceed with w/u 8. Vitamin D deficiency - ICD9: 268.9, ICD10: E55.9 - patient to restart replacement 9. Varicose veins of bilateral lower extremities with other complications - ICD9: 454.8, ICD10: I83.893 - patient getting support socks 10. Unintentional weight loss - ICD9: 783.21, ICD10: R63.4 Check - XR CHEST 2V FRONTAL/LAT_ if negative will check CT - US ABDOMEN COMPLETE if neg will check CT abd/pel w /w/o contrast. - TSH BLD - T4 FREE/FREE THYROX 11. Need for vaccination - ICD9: V05.9, ICD10: Z23 - PNEUMOCOCCAL VACCINE (PREVNAR 20): given Requested Prescriptions Signed Prescriptions Disp Refills Cholecalciferol, Vitamin D3, 50 mcg (2,000 unit) cap Sig: Take 1 capsule by mouth once daily. aspirin 81 mg chewable tablet Sig: Take 1 tablet by mouth once daily. F/u 6 months extensive check CMP, Lipid, UA, A1c, CBC and Vit D prior Frank Salinas MD documented in this encounter [facility] 03-18-2023 Miscellaneous Notes Misty from [facility] called stating they sent 4 images through the PACS system, you should see them. documented in this encounter [facility] 03-17-2023 Note HNO ID: [id number] Author: Shimon Frey MD, PhD Service: ? Author Type: Physician Type: Progress Notes Filed: 04/15/2023 6:52 AM Note Text: [facility] Initial Visit Consultation is requested by: Lara Hoffman [address] [facility] [address] PCP: Frank Salinas [address] [place] [address] Consultation requested by Lara Hoffman for an opinion regarding abnormal imaging. My final recommendations will be communicated back to the requesting physician by way of shared Medical record or letter to requesting physician via US mail. CEREBROVASCULAR HISTORY Elizabeth Mcnally is a 77 year old female. Patient had c-diff, she was on antibiotics before for cellulitis. Left leg had cellulitis. She is not on asa now. Patient has KAPOOR, severe, twice when she was in 20 mins. Patient snores at night. Patient can be followed by pcp for evaluation of possible KALEIGH. Patient has family history of lymphoma. LDL 158, HgA1c 6.0 Patient had no history of smoking or alcohol use. Patient had MRI of brain in December 2022. It showed microvascular disease with white matter changes, and left cerebellar lacunar infarction. CTA of brain and neck showed no severe stenosis, or occlusion. Patient denied of personal history of stroke. PAST MEDICAL HISTORY Diagnosis Date Adjustment reaction 03/01/2010 Allergic rhinitis 01/05/2014 Allergy-induced asthma 01/05/[address] Angel Isbell Arthritis of both hips 03/13/2022 Bilateral leg edema 08/11/2020 Breast density 06/27/2021 Left CKD (chronic kidney disease) stage 3, GFR 30-59 ml/min ([facility]) 02/25/2019 Fecal urgency 07/30/2022 Saw Gen Surgery 06/2022 and refused colonoscopy. 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 03/01/2010 Primary osteoarthritis of left knee 11/18/2017 Proteinuria 02/13/2014 Repeat test was neg Right knee pain 02/23/2014 Under workman's comp Synovial cyst of left popliteal space 08/04/2020 Thoracic or lumbosacral neuritis or radiculitis, unspecified 07/04/2014 Varicose veins of both lower extremities 09/08/2019 Lt>Rt Venous insufficiency 10/03/2009 Vitamin D deficiency PAST SURGICAL HISTORY Procedure Laterality Date BX OF BREAST; INCISIONAL Left 07/06/2021 LIGJ DIVJ AND/EXCJ VARICOSE VEIN CLUSTER 1 LEG Varicose Vein Surgery PAST SURGICAL HISTORY OF 05/1999 EXCISSION L FOOT LESIONS X2 PAST SURGICAL HISTORY OF 1973 LAPRASCOPY FOR FERTILITY STRESS TEST 08/05/2016 normal UNSPECIFIED ORAL SURGERY PROCEDURE, BY REPORT Boone teeth extracted/ and implant FAMILY HISTORY Problem Relation Age of Onset Cancer Mother THROAT AND TONGUE FROM THIS AND ABOVE Arthritis Mother Rheumatoid other (HODGKINS DISEASE) Mother Diabetes Father Type 2 Stroke Father age 92 at time of other (KIDNEY FAILURE) Father FROM THIS Breast Cancer Other maternal first cousin Social History Tobacco Use Smoking status: Never Smokeless tobacco: Never Vaping Use Vaping Use: Never used Substance Use Topics Alcohol use: No Drug use: No MEDICATIONS Current Outpatient Medications Medication Sig aspirin 81 mg chewable tablet Take by mouth. fluticasone (FLONASE) 50 mcg/actuation nasal spray Use 2 Sprays in each nostril once daily. No current facility-administered medications for this visit. ALLERGIES ALLERGIES Allergen Reactions Mar [Fexofenadi* Rash Singulair [[place]el[place]* Rash itching and rash (tried twice) PHYSICAL EXAMINATION BP 156/84 Pulse 94 Ht 165.1 cm (5' 5 ) Wt 99.7 kg (219 lb 11.2 oz) SpO2 92% BMI 36.56 kg/m? NIHSS: 1(a). Mental Status - LOC 0 = Alert and Attentive 1(b). LOC Questions 0 = Correct age and month 1(c). LOC-Commands 0 = Both 2. Gaze 0 = Normal 3. Visual Kohler 0 = Full 4. Facial Weakness 0 = Normal 5(a). Left Arm 0 = No drift 5(b). Right Arm 0 = No drift 6(a). Left Leg 0 = No drift 6(b). Right Leg 0 = No drift 7. Ataxia 0 = Absent 8. Sensory 0 = Normal 9. Aphasia 0 = None 10. Dysarthria 0 = Absent 11. Neglect 0 = None NIHSS Total (0-42): 0 LABS Cholesterol: Cholesterol, Total (mg/dL) Date Value 01/28/2018 252 Total Cholesterol, Nonfasting (mg/dL) Date Value 09/14/2022 242 03/07/2021 209 LDL Cholesterol (mg/dL) Date Value 01/28/2018 170 LDL Cholesterol, Nonfasting (mg/dL) Date Value 09/14/2022 158 03/07/2021 120 HDL Cholesterol (mg/dL) Date Value 01/28/2018 51 HDL Cholesterol, Nonfasting (mg/dL) Date Value 09/14/2022 60 03/07/2021 49 Triglyceride (mg/dL) Date Value 01/28/2018 157 Triglycerides, Nonfasting (mg/dL) Date Valu (more content not included)... [facility] 03-17-2023 Instructions Shimon Frey MD, PhD - 03/17/2023 10:47 AM EDT Patient will get images CT of brain, CTA of brain and neck and MRI send to me for review. Asa 81mg once a day. Recommend crestor 20mg once a day, or lipitor 40mg once a day. Patient will discuss with her pcp first, then decide. F/u with pcp for blood pressure monitoring and control to keep 100-130/60-90. Glucose control per pcp. F/u with pcp for possible KALEIGH. Patient will discuss with her pcp for possible sleep study. F/u with pcp for untentional weight loss, and age appropriate cancer screen. Signs and symptoms of TIA/Stroke were discussed with patient. Patient will go to ER immediately if having signs or symptoms of stroke. Exercise as tolerated, healthy diet, and weight loss F/u in 6 months to 1 year Call if having any questions. I have discussed with family patient. F/u in 3 months as need, ok with apps. documented in this encounter [facility] 03-17-2023 History of Presen t illness Narrative [facility] Initial Visit Consultation is requested by: Lara Hoffman [address] [id number] PCP: Frank Salinas [address] [id number] Consultation requested by Lara Hoffman for an opinion regarding abnormal imaging. My final recommendations will be communicated back to the requesting physician by way of shared Medical record or letter to requesting physician via US mail. CEREBROVASCULAR HISTORY Elizabeth Mcnally is a 77 year old female. Patient had c-diff, she was on antibiotics before for cellulitis. Left leg had cellulitis. She is not on asa now. Patient has KAPOOR, severe, twice when she was in 20 mins. Patient snores at night. Patient can be followed by pcp for evaluation of possible KALEIGH. Patient has family history of lymphoma. LDL 158, HgA1c 6.0 Patient had no history of smoking or alcohol use. Patient had MRI of brain in December 2022. It showed microvascular disease with white matter changes, and left cerebellar lacunar infarction. CTA of brain and neck showed no severe stenosis, or occlusion. Patient denied of personal history of stroke. PAST MEDICAL HISTORY Diagnosis Date Adjustment reaction 03/01/2010 Allergic rhinitis 01/05/2014 Allergy-induced asthma 01/05/[address] Angel Isbell Arthritis of both hips 03/13/2022 Bilateral leg edema 08/11/2020 Breast density 06/27/2021 Left CKD (chronic kidney disease) stage 3, GFR 30-59 ml/min ([facility]) 02/25/2019 Fecal urgency 07/30/2022 Saw Gen Surgery 06/2022 and refused colonoscopy. 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 03/01/2010 Primary osteoarthritis of left knee 11/18/2017 Proteinuria 02/13/2014 Repeat test was neg Right knee pain 02/23/2014 Under workman's comp Synovial cyst of left popliteal space 08/04/2020 Thoracic or lumbosacral neuritis or radiculitis, unspecified 07/04/2014 Varicose veins of both lower extremities 09/08/2019 Lt>Rt Venous insufficiency 10/03/2009 Vitamin D deficiency PAST SURGICAL HISTORY Procedure Laterality Date BX OF BREAST; INCISIONAL Left 07/06/2021 LIGJ DIVJ &/EXCJ VARICOSE VEIN CLUSTER 1 LEG Varicose Vein Surgery PAST SURGICAL HISTORY OF 05/1999 EXCISSION L FOOT LESIONS X2 PAST SURGICAL HISTORY OF 1973 LAPRASCOPY FOR FERTILITY STRESS TEST 08/05/2016 normal UNSPECIFIED ORAL SURGERY PROCEDURE, BY REPORT Boone teeth extracted/ and implant FAMILY HISTORY Problem Relation Age of Onset Cancer Mother THROAT AND TONGUE FROM THIS AND ABOVE Arthritis Mother Rheumatoid other (HODGKINS DISEASE) Mother Diabetes Father Type 2 Stroke Father age 92 at time of other (KIDNEY FAILURE) Father FROM THIS Breast Cancer Other maternal first cousin Social History Tobacco Use Smoking status: Never Smokeless tobacco: Never Vaping Use Vaping Use: Never used Substance Use Topics Alcohol use: No Drug use: No MEDICATIONS Current Outpatient Medications Medication Sig aspirin 81 mg chewable tablet Take by mouth. fluticasone (FLONASE) 50 mcg/actuation nasal spray Use 2 Sprays in each nostril once daily. No current facility-administered medications for this visit. ALLERGIES ALLERGIES Allergen Reactions Mar [Fexofenadi* Rash Singulair [[place]el[place]* Rash itching and rash (tried twice) PHYSICAL EXAMINATION BP 156/84 Pulse 94 Ht 165.1 cm (5' 5 ) Wt 99.7 kg (219 lb 11.2 oz) SpO2 92% BMI 36.56 kg/m NIHSS: 1(a). Mental Status - LOC 0 = Alert and Attentive 1(b). LOC Questions 0 = Correct age and month 1(c). LOC-Commands 0 = Both 2. Gaze 0 = Normal 3. Visual Kohler 0 = Full 4. Facial Weakness 0 = Normal 5(a). Left Arm 0 = No drift 5(b). Right Arm 0 = No drift 6(a). Left Leg 0 = No drift 6(b). Right Leg 0 = No drift 7. Ataxia 0 = Absent 8. Sensory 0 = Normal 9. Aphasia 0 = None 10. Dysarthria 0 = Absent 11. Neglect 0 = None NIHSS Total (0-42): 0 LABS Cholesterol: Cholesterol, Total (mg/dL) Date Value 01/28/2018 252 Total Cholesterol, Nonfasting (mg/dL) Date Value 09/14/2022 242 03/07/2021 209 LDL Cholesterol (mg/dL) Date Value 01/28/2018 170 LDL Cholesterol, Nonfasting (mg/dL) Date Value 09/14/2022 158 03/07/2021 120 HDL Cholesterol (mg/dL) Date Value 01/28/2018 51 HDL Cholesterol, Nonfasting (mg/dL) Date Value 09/14/2022 60 03/07/2021 49 Triglyceride (mg/dL) Date Value 01/28/2018 157 Triglycerides, Nonfasting (mg/dL) Date Value 09/14/2022 122 03/07/2021 199 Diabetes: Hemoglobin A1C (%) Date Value 09/14/2022 6.0 03/07/2021 6.2 IMAGING No images available to be reviewed. Patient Entered Questionnaires PROMIS/NeuroQoL Score Percentiles Physical Health 03/14/2023 11/12/2020 10/11/2020 Physical Function Percentile 42 21* 27* Fatigue Percentile - 8 38 Pain Interference Percentile - - 100 PROMIS SOCIAL ROLE SCORE 11/12/2020 Social Role Satisfaction Percentile 31 Mental Health 03/14/2023 NeuroQol Cognitive Function Percentile 69 PROMIS Global Health Scale 03/07/2022 11/12/2020 08/04/2020 Physical Health Percentile 41 22* 41 Mental Health Percentile - 53 53 Percentiles provide an indication of how a patient's score ranks in relation to the [place] general population. > 31st percentile is within normal limits or better * < 31st percentile is at least SD worse than population, which may be clinically relevant < 16th percentile is at least 1 SD worse than population and warrants attention Depression Screening: PHQ-9 Scores: PHQ-9 Self-Harm (Item 9) Response: 0 - 9 No to Mild depression 0 - Not at all 10 - 14 Moderate depression 1 - Several Days > 15 Severe depression 2 - More than half the days 3 - Nearly every day Stroke Mechanism and Scales IMPRESSION and PLAN: Cerebral microvasculopathy (primary encounter diagnosis) Elevated blood pressure reading without diagnosis of hypertension Hyperlipidemia, unspecified hyperlipidemia type Elevated hemoglobin A1c Breathing-related sleep disorder Lacunar infarction (HCC), small vessel disease. Patient will get images CT of brain, CTA of brain and neck and MRI send to me for review. Asa 81mg once a day. Recommend crestor 20mg once a day, or lipitor 40mg once a day. Patient will discuss with her pcp first, then decide. F/u with pcp for blood pressure monitoring and control to keep 100-130/60-90. Glucose control per pcp. F/u with pcp for possible KALEIGH. Patient will discuss with her pcp for possible sleep study. F/u with pcp for untentional weight loss, and age appropriate cancer screen. Signs and symptoms of TIA/Stroke were discussed with patient. Patient will go to ER immediately if having signs or symptoms of stroke. Exercise as tolerated, healthy diet, and weight loss F/u in 6 months to 1 year Call if having any questions. I have discussed with family patient. F/u in 3 months as need, ok with apps. I spent a total of 60 minutes on the date of service which included preparing to see the patient, [id number] patient care, completing clinical documentation, obtaining and/or reviewing separately obtained history, performing a medically appropriate examination, counseling and educating the patient/family/caregiver, communicating results to the patient/family/caregiver, and care coordination (not separately reported) DAMION Frey MD, PhD CC Lara Hoffman [address] [facility] [address] Frank Salinas [address] [place] [address] . documented in this encounter [facility] 03-07-2023 Miscellaneous Notes Patient was notified Let patient know US neg for blood clot in leg. documented in this encounter [facility] 03-06-2023 Note HNO ID: [id number] Author: Xiomara Arroyo Ma Service: ? Author Type: ? Type: Progress Notes Filed: 03/09/2023 8:55 PM Note Text: Scan on 03/05/2023 11:46 PM by ProviderLiana PA-C: Consultation - Emergency Medicine Scan on 03/05/2023 10:59 PM by Liana Gregorio PA-C: Ultrasound Scan on 03/05/2023 11:01 PM by Liana Gregorio PA-C: CT Scan [facility] 03-06-2023 History of Presen t illness Narrative Scan on 03/05/2023 11:46 PM by Liana Gregorio PA-C: Consultation - Emergency Medicine Scan on 03/05/2023 10:59 PM by Liana Gregorio PA-C: Ultrasound Scan on 03/05/2023 11:01 PM by Liana Gregorio PA-C: CT Scan documented in this encounter [facility] 03-06-2023 Note HNO ID: [id number] Author: Frank Salinas MD Service: ? Author Type: Physician Type: Progress Notes Filed: 03/08/2023 11:23 AM Note Text: Chief Complaint Patient presents with: ED Follow-up HPI Elizabeth Mcnally is a 77 year old female who presents here today for er follow up. Office visit - [facility] er follow up 03/06/2023 Since November 2022 patient has been recovering from cellulitis and been in the hospital several times. Patient is here today for ER (02/27/2023) follow up for Diarrhea and C-diff. Patient is still taking vancomycin. She is having loose stools but not as loose as it was the day she was in the ER. On 02/27/2023 the stool was very loose just like when she had been previously diagnosed with C. Diff. She is taking a probiotic now. Has not had any fevers or chills. The left leg (which had the cellulitis) has some mild discomfort and may last a day or so and then resolves. Since Friday has had increased swelling of the left lower extremity. They did do US of the left calf in the ER on 02/27/2023 but at that time she had no pitting edema Patient has not made an appt with the ID provider as advised by ER. Patient with hx of hyperlipidemia, asthma, fecal urgency, CKD, impaired fasting glucose, obesity, vit d def, and those as below. Past medical history, appointments, medications, allergies reviewed. Previous Medical History PAST MEDICAL HISTORY Diagnosis Date Adjustment reaction 03/01/2010 Allergic rhinitis 01/05/2014 Allergy-induced asthma 01/05/[address] Angel Isbell Arthritis of both hips 03/13/2022 Bilateral leg edema 08/11/2020 Breast density 06/27/2021 Left CKD (chronic kidney disease) stage 3, GFR 30-59 ml/min ([facility]) 02/25/2019 Fecal urgency 07/30/2022 Saw Gen Surgery 06/2022 and refused colonoscopy. 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 03/01/2010 Primary osteoarthritis of left knee 11/18/2017 Proteinuria 02/13/2014 Repeat test was neg Right knee pain 02/23/2014 Under workman's comp Synovial cyst of left popliteal space 08/04/2020 Thoracic or lumbosacral neuritis or radiculitis, unspecified 07/04/2014 Varicose veins of both lower extremities 09/08/2019 Lt>Rt Venous insufficiency 10/03/2009 Vitamin D deficiency Previous Surgical History PAST SURGICAL HISTORY Procedure Laterality Date BX OF BREAST; INCISIONAL Left 07/06/2021 LIGJ DIVJ AND/EXCJ VARICOSE VEIN CLUSTER 1 LEG Varicose Vein Surgery PAST SURGICAL HISTORY OF 05/1999 EXCISSION L FOOT LESIONS X2 PAST SURGICAL HISTORY OF 1973 LAPRASCOPY FOR FERTILITY STRESS TEST 08/05/2016 normal UNSPECIFIED ORAL SURGERY PROCEDURE, BY REPORT Boone teeth extracted/ and implant Family History FAMILY HISTORY Problem Relation Age of Onset Cancer Mother THROAT AND TONGUE FROM THIS AND ABOVE Arthritis Mother Rheumatoid other (HODGKINS DISEASE) Mother Diabetes Father Type 2 Stroke Father age 92 at time of other (KIDNEY FAILURE) Father FROM THIS Breast Cancer Other maternal first cousin Patient Allergies ALLERGIES Allergen Reactions Mar [Fexofenadi* Rash Singulair [[place]* Rash itching and rash (tried twice) Current Medications Current Outpatient Medications on File Prior to Visit Medication Sig Cholecalciferol, Vitamin D3, 50 mcg (2,000 unit) cap Take 1 capsule by mouth once daily. fluticasone (FLONASE) 50 mcg/actuation nasal spray Use 2 Sprays in each nostril once daily. acetaminophen 650 mg CR tablet Take 650 mg by mouth every 8 hours as needed. No current facility-administered medications on file prior to visit. Social History Social History Tobacco Use Smoking status: Never Smokeless tobacco: Never Vaping Use Vaping Use: Never used Substance Use Topics Alcohol use: No Drug use: No Review of Symptoms REVIEW OF SYSTEMS See HPI EXAM: BP 138/88 (BP Site: Left Arm, BP Position: Sitting, BP Cuff Size: Large Adult) Pulse 64 Resp 16 Wt 98.4 kg (217 lb) BMI 38.09 kg/m? BP 136/84 Pulse 64 Resp 16 Wt 98.4 kg (217 lb) BMI 38.09 kg/m? General Appearance: Well appearing, alert, in no acute distress, well-hydrated, well nourished.. Abdomen: Normal abdominal exam, Abdomen soft, non-tender. Bowel sounds normal. No masses, organomegaly. Extremities: No deformities,. Has firmness in the left calf medially and posteriorly with pitting edema. Has chronic venous stasis changes with no warmth of the skin and no tenderness to palpation. Health Maintenance List COVID-19 VACCINE(5 - Moderna series) due on 02/28/2022 DTAP,TDAP,TD(3 - Td or Tdap) due on 03/29/2023 ANNUAL PCP TEAM CHRONIC DISEASE VISIT due on 02/19/2024 SERUM CREATININE (more content not included)... [facility] 03-06-2023 History of Presen t illness Narrative Chief Complaint Patient presents with: ED Follow-up HPI Elizabeth Mcnally is a 77 year old female who presents here today for er follow up. Office visit - [facility] er follow up 03/06/2023 Since November 2022 patient has been recovering from cellulitis and been in the hospital several times. Patient is here today for ER (02/27/2023) follow up for Diarrhea and C-diff. Patient is still taking vancomycin. She is having loose stools but not as loose as it was the day she was in the ER. On 02/27/2023 the stool was very loose just like when she had been previously diagnosed with C. Diff. She is taking a probiotic now. Has not had any fevers or chills. The left leg (which had the cellulitis) has some mild discomfort and may last a day or so and then resolves. Since Friday has had increased swelling of the left lower extremity. They did do US of the left calf in the ER on 02/27/2023 but at that time she had no pitting edema Patient has not made an appt with the ID provider as advised by ER. Patient with hx of hyperlipidemia, asthma, fecal urgency, CKD, impaired fasting glucose, obesity, vit d def, and those as below. Past medical history, appointments, medications, allergies reviewed. Previous Medical History PAST MEDICAL HISTORY Diagnosis Date Adjustment reaction 03/01/2010 Allergic rhinitis 01/05/2014 Allergy-induced asthma 01/05/[address] Angel Isbell Arthritis of both hips 03/13/2022 Bilateral leg edema 08/11/2020 Breast density 06/27/2021 Left CKD (chronic kidney disease) stage 3, GFR 30-59 ml/min ([facility]) 02/25/2019 Fecal urgency 07/30/2022 Saw Gen Surgery 06/2022 and refused colonoscopy. 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 03/01/2010 Primary osteoarthritis of left knee 11/18/2017 Proteinuria 02/13/2014 Repeat test was neg Right knee pain 02/23/2014 Under workman's comp Synovial cyst of left popliteal space 08/04/2020 Thoracic or lumbosacral neuritis or radiculitis, unspecified 07/04/2014 Varicose veins of both lower extremities 09/08/2019 Lt>Rt Venous insufficiency 10/03/2009 Vitamin D deficiency Previous Surgical History PAST SURGICAL HISTORY Procedure Laterality Date BX OF BREAST; INCISIONAL Left 07/06/2021 LIGJ DIVJ &/EXCJ VARICOSE VEIN CLUSTER 1 LEG Varicose Vein Surgery PAST SURGICAL HISTORY OF 05/1999 EXCISSION L FOOT LESIONS X2 PAST SURGICAL HISTORY OF 1973 LAPRASCOPY FOR FERTILITY STRESS TEST 08/05/2016 normal UNSPECIFIED ORAL SURGERY PROCEDURE, BY REPORT Boone teeth extracted/ and implant Family History FAMILY HISTORY Problem Relation Age of Onset Cancer Mother THROAT AND TONGUE FROM THIS AND ABOVE Arthritis Mother Rheumatoid other (HODGKINS DISEASE) Mother Diabetes Father Type 2 Stroke Father age 92 at time of other (KIDNEY FAILURE) Father FROM THIS Breast Cancer Other maternal first cousin Patient Allergies ALLERGIES Allergen Reactions Mar [Fexofenadi* Rash Singulair [[place]* Rash itching and rash (tried twice) Current Medications Current Outpatient Medications on File Prior to Visit Medication Sig Cholecalciferol, Vitamin D3, 50 mcg (2,000 unit) cap Take 1 capsule by mouth once daily. fluticasone (FLONASE) 50 mcg/actuation nasal spray Use 2 Sprays in each nostril once daily. acetaminophen 650 mg CR tablet Take 650 mg by mouth every 8 hours as needed. No current facility-administered medications on file prior to visit. Social History Social History Tobacco Use Smoking status: Never Smokeless tobacco: Never Vaping Use Vaping Use: Never used Substance Use Topics Alcohol use: No Drug use: No Review of Symptoms REVIEW OF SYSTEMS See HPI EXAM: BP 138/88 (BP Site: Left Arm, BP Position: Sitting, BP Cuff Size: Large Adult) Pulse 64 Resp 16 Wt 98.4 kg (217 lb) BMI 38.09 kg/m BP 136/84 Pulse 64 Resp 16 Wt 98.4 kg (217 lb) BMI 38.09 kg/m General Appearance: Well appearing, alert, in no acute distress, well-hydrated, well nourished.. Abdomen: Normal abdominal exam, Abdomen soft, non-tender. Bowel sounds normal. No masses, organomegaly. Extremities: No deformities,. Has firmness in the left calf medially and posteriorly with pitting edema. Has chronic venous stasis changes with no warmth of the skin and no tenderness to palpation. Health Maintenance List COVID-19 VACCINE(5 - Moderna series) due on 02/28/2022 DTAP,TDAP,TD(3 - Td or Tdap) due on 03/29/2023 ANNUAL PCP TEAM CHRONIC DISEASE VISIT due on 02/19/2024 SERUM CREATININE due on 02/19/2024 HEMOGLOBIN/HEMATOCRIT due on 02/19/2024 DIABETES SCREEN due on 02/18/2026 LIPID SCREEN due on 09/15/2027 BONE DENSITY Completed ADVANCE DIRECTIVE DISCUSSION Completed DEPRESSION ASSESSMENT Completed HEPATITIS C SCREENING Completed SHINGRIX VACCINE Completed MAMMOGRAM Discontinued SPIROMETRY Discontinued INFLUENZA Discontinued COLORECTAL CANCER SCREENING Discontinued PNEUMOCOCCAL: 65+ Discontinued Data reviewed A/P ASSESSMENT/PLAN: 1. C. difficile colitis - ICD9: 008.45, ICD10: A04.72 (primary diagnosis) - seems to be resolving. - patient to complete the Vancomycin and make appt with ID. 2. Left leg cellulitis - ICD9: 682.6, ICD10: L03.116 - resolved 3. Left leg swelling - ICD9: 729.81, ICD10: M79.89 Will check STAT - US LEG VEIN DVT UNL VAS LAB Frank Salinas MD documented in this encounter [facility] 02-19-2023 Miscellaneous Notes Patient notified of results and provider's instructions. Patient verbalizes understanding. Otoniel Boyer LPN Blood counts are normal. Her kidney function is slightly decreased still. Still stage 3 chronic kidney disease. We will continue to monitor this. Avoid NSAIDs and drink plenty of water. Thanks. Lara Hoffman PA-C documented in this encounter [facility] 02-18-2023 Note HNO ID: [id number] Author: Lara Hoffman PA-C Service: ? Author Type: Physician Artist Manager Type: Progress Notes Filed: 02/18/2023 12:57 PM Note Text: Chief Complaint Patient presents with: Recheck: Left lower leg HPI Elizabeth Mcnally is a 77 year old female who presents here today for recheck. Patient has been cleared by wound center for her cellulits. She is still using compression socks. She not longer has watery stool. Still loose but states it's at baseline for her. Past medical history, appointments, medications, allergies reviewed. Previous Medical History PAST MEDICAL HISTORY Diagnosis Date Adjustment reaction 03/01/2010 Allergic rhinitis 01/05/2014 Allergy-induced asthma 01/05/[address] Angel Isbell Arthritis of both hips 03/13/2022 Bilateral leg edema 08/11/2020 Breast density 06/27/2021 Left CKD (chronic kidney disease) stage 3, GFR 30-59 ml/min ([facility]) 02/25/2019 Fecal urgency 07/30/2022 Saw Gen Surgery 06/2022 and refused colonoscopy. 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 03/01/2010 Primary osteoarthritis of left knee 11/18/2017 Proteinuria 02/13/2014 Repeat test was neg Right knee pain 02/23/2014 Under workman's comp Synovial cyst of left popliteal space 08/04/2020 Thoracic or lumbosacral neuritis or radiculitis, unspecified 07/04/2014 Varicose veins of both lower extremities 09/08/2019 Lt>Rt Venous insufficiency 10/03/2009 Vitamin D deficiency Previous Surgical History PAST SURGICAL HISTORY Procedure Laterality Date BX OF BREAST; INCISIONAL Left 07/06/2021 LIGJ DIVJ AND/EXCJ VARICOSE VEIN CLUSTER 1 LEG Varicose Vein Surgery PAST SURGICAL HISTORY OF 05/1999 EXCISSION L FOOT LESIONS X2 PAST SURGICAL HISTORY OF 1973 LAPRASCOPY FOR FERTILITY STRESS TEST 08/05/2016 normal UNSPECIFIED ORAL SURGERY PROCEDURE, BY REPORT Boone teeth extracted/ and implant Family History FAMILY HISTORY Problem Relation Age of Onset Cancer Mother THROAT AND TONGUE FROM THIS AND ABOVE Arthritis Mother Rheumatoid other (HODGKINS DISEASE) Mother Diabetes Father Type 2 Stroke Father age 92 at time of other (KIDNEY FAILURE) Father FROM THIS Breast Cancer Other maternal first cousin Patient Allergies ALLERGIES Allergen Reactions Mar [Fexofenadi* Rash Singulair [[place]* Rash itching and rash (tried twice) Current Medications Current Outpatient Medications on File Prior to Visit Medication Sig Cholecalciferol, Vitamin D3, 50 mcg (2,000 unit) cap Take 1 capsule by mouth once daily. fluticasone (FLONASE) 50 mcg/actuation nasal spray Use 2 Sprays in each nostril once daily. acetaminophen 650 mg CR tablet Take 650 mg by mouth every 8 hours as needed. vancomycin (VANCOCIN) 125 mg capsule take 1 capsule by mouth every 6 hours (Patient not taking: Reported on 02/18/2023) acyclovir (ZOVIRAX) 200 mg capsule Take 200 mg by mouth three times daily. (Patient not taking: Reported on 12/23/2022) cephALEXin (KEFLEX) 500 mg capsule Take 500 mg by mouth three times daily. (Patient not taking: Reported on 12/26/2022) albuterol HFA (PROVENTIL HFA, VENTOLIN HFA) 90 mcg/actuation inhaler Inhale 2 Puffs as instructed every 4 hours as needed for wheezing/shortness of breath. (Patient not taking: Reported on 07/19/2022) No current facility-administered medications on file prior to visit. Social History Social History Tobacco Use Smoking status: Never Smokeless tobacco: Never Vaping Use Vaping Use: Never used Substance Use Topics Alcohol use: No Drug use: No Review of Symptoms REVIEW OF SYSTEMS GENERAL: No weight loss, malaise or fevers EXAM: BP 110/80 (BP Site: Left Arm, BP Position: Sitting, BP Cuff Size: Large Adult) Pulse 60 Temp 36.5 ?C (97.7 ?F) Resp 18 Wt 98.9 kg (218 lb) BMI 38.27 kg/m? General Appearance: Well appearing, alert, in no acute distress, well-hydrated, well nourished.. Extremities: 1+ pitting edema b/l. Mildly tender. Health Maintenance List COVID-19 VACCINE(5 - Moderna series) due on 02/28/2022 DTAP,TDAP,TD(3 - Td or Tdap) due on 03/29/2023 HEMOGLOBIN/HEMATOCRIT due on 07/19/2023 SERUM CREATININE due on 09/15/2023 ANNUAL PCP TEAM CHRONIC DISEASE VISIT due on 12/27/2023 DIABETES SCREEN due on 09/14/2025 LIPID SCREEN due on 09/15/2027 BONE DENSITY Completed ADVANCE DIRECTIVE DISCUSSION Completed DEPRESSION ASSESSMENT Completed HEPATITIS C SCREENING Completed SHINGRIX VACCINE Completed MAMMOGRAM Discontinued SPIROMETRY Discontinued INFLUENZA Discontinued COLORECTAL CANCER SCREENING Discontinued PNEUMOCOCCAL: 65+ Discontinued Data reviewed ASSESSMENT/PLAN: 1. CEASAR (acute (more content not included)... [facility] 02-18-2023 History of Presen t illness Narrative Chief Complaint Patient presents with: Recheck: Left lower leg HPI Elizabeth Mcnally is a 77 year old female who presents here today for recheck. Patient has been cleared by wound center for her cellulits. She is still using compression socks. She not longer has watery stool. Still loose but states it's at baseline for her. Past medical history, appointments, medications, allergies reviewed. Previous Medical History PAST MEDICAL HISTORY Diagnosis Date Adjustment reaction 03/01/2010 Allergic rhinitis 01/05/2014 Allergy-induced asthma 01/05/[address] Angel Isbell Arthritis of both hips 03/13/2022 Bilateral leg edema 08/11/2020 Breast density 06/27/2021 Left CKD (chronic kidney disease) stage 3, GFR 30-59 ml/min ([facility]) 02/25/2019 Fecal urgency 07/30/2022 Saw Gen Surgery 06/2022 and refused colonoscopy. 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 03/01/2010 Primary osteoarthritis of left knee 11/18/2017 Proteinuria 02/13/2014 Repeat test was neg Right knee pain 02/23/2014 Under workman's comp Synovial cyst of left popliteal space 08/04/2020 Thoracic or lumbosacral neuritis or radiculitis, unspecified 07/04/2014 Varicose veins of both lower extremities 09/08/2019 Lt>Rt Venous insufficiency 10/03/2009 Vitamin D deficiency Previous Surgical History PAST SURGICAL HISTORY Procedure Laterality Date BX OF BREAST; INCISIONAL Left 07/06/2021 LIGJ DIVJ &/EXCJ VARICOSE VEIN CLUSTER 1 LEG Varicose Vein Surgery PAST SURGICAL HISTORY OF 05/1999 EXCISSION L FOOT LESIONS X2 PAST SURGICAL HISTORY OF 1973 LAPRASCOPY FOR FERTILITY STRESS TEST 08/05/2016 normal UNSPECIFIED ORAL SURGERY PROCEDURE, BY REPORT Boone teeth extracted/ and implant Family History FAMILY HISTORY Problem Relation Age of Onset Cancer Mother THROAT AND TONGUE FROM THIS AND ABOVE Arthritis Mother Rheumatoid other (HODGKINS DISEASE) Mother Diabetes Father Type 2 Stroke Father age 92 at time of other (KIDNEY FAILURE) Father FROM THIS Breast Cancer Other maternal first cousin Patient Allergies ALLERGIES Allergen Reactions Mar [Fexofenadi* Rash Singulair [[place]* Rash itching and rash (tried twice) Current Medications Current Outpatient Medications on File Prior to Visit Medication Sig Cholecalciferol, Vitamin D3, 50 mcg (2,000 unit) cap Take 1 capsule by mouth once daily. fluticasone (FLONASE) 50 mcg/actuation nasal spray Use 2 Sprays in each nostril once daily. acetaminophen 650 mg CR tablet Take 650 mg by mouth every 8 hours as needed. vancomycin (VANCOCIN) 125 mg capsule take 1 capsule by mouth every 6 hours (Patient not taking: Reported on 02/18/2023) acyclovir (ZOVIRAX) 200 mg capsule Take 200 mg by mouth three times daily. (Patient not taking: Reported on 12/23/2022) cephALEXin (KEFLEX) 500 mg capsule Take 500 mg by mouth three times daily. (Patient not taking: Reported on 12/26/2022) albuterol HFA (PROVENTIL HFA, VENTOLIN HFA) 90 mcg/actuation inhaler Inhale 2 Puffs as instructed every 4 hours as needed for wheezing/shortness of breath. (Patient not taking: Reported on 07/19/2022) No current facility-administered medications on file prior to visit. Social History Social History Tobacco Use Smoking status: Never Smokeless tobacco: Never Vaping Use Vaping Use: Never used Substance Use Topics Alcohol use: No Drug use: No Review of Symptoms REVIEW OF SYSTEMS GENERAL: No weight loss, malaise or fevers EXAM: BP 110/80 (BP Site: Left Arm, BP Position: Sitting, BP Cuff Size: Large Adult) Pulse 60 Temp 36.5 C (97.7 F) Resp 18 Wt 98.9 kg (218 lb) BMI 38.27 kg/m General Appearance: Well appearing, alert, in no acute distress, well-hydrated, well nourished.. Extremities: 1+ pitting edema b/l. Mildly tender. Health Maintenance List COVID-19 VACCINE(5 - Moderna series) due on 02/28/2022 DTAP,TDAP,TD(3 - Td or Tdap) due on 03/29/2023 HEMOGLOBIN/HEMATOCRIT due on 07/19/2023 SERUM CREATININE due on 09/15/2023 ANNUAL PCP TEAM CHRONIC DISEASE VISIT due on 12/27/2023 DIABETES SCREEN due on 09/14/2025 LIPID SCREEN due on 09/15/2027 BONE DENSITY Completed ADVANCE DIRECTIVE DISCUSSION Completed DEPRESSION ASSESSMENT Completed HEPATITIS C SCREENING Completed SHINGRIX VACCINE Completed MAMMOGRAM Discontinued SPIROMETRY Discontinued INFLUENZA Discontinued COLORECTAL CANCER SCREENING Discontinued PNEUMOCOCCAL: 65+ Discontinued Data reviewed ASSESSMENT/PLAN: 1. CEASAR (acute kidney injury) (HCC) - ICD9: 584.9, ICD10: N17.9 (primary diagnosis) Await labs - CBC + DIFF - BASIC METABOLIC PNL 2. Elevated BP without diagnosis of hypertension - ICD9: 796.2, ICD10: R03.0 Bp okay today - CBC + DIFF - BASIC METABOLIC PNL 3. Cellulitis of skin - ICD9: 682.9, ICD10: L03.90 resolved 4. Leg swelling - ICD9: 729.81, ICD10: M79.89 Improved. Lara Hoffman PA-C documented in this encounter [facility] 02-12-2023 Miscellaneous Notes Patient calls in and requests to reschedule with Lara since she has been the one monitoring the area. Scheduled for 02/18/2023 920 am per patient request. Rosemary Barraza, RN documented in this encounter [facility] 01-22-2023 Miscellaneous Notes noted I contacted patient and she indicated that she was [place] the [facility] and had diarrhea that entire day. She had eaten pasta with red sauce. Asked patient if she has continued with diarrhea and she indicated no. She has been watching her diet more. Her concerns was with c-Diff. Also asked about patient's leg and she indicated that her last visit was today with [facility] and she is D/C from them. She indicated that it has healed. Just some pealing skin and she has to see a doctor regarding the veins. Patient is scheduled for 02/13/2023 and she will notify office of any other changes. Amanda Sullivan MA Pt calling to talk to Lara only. She would not disclose any information. Advised she was with pts all day and I would send a message to the office. documented in this encounter [facility] 01-22-2023 Note HNO ID: [id number] Author: Otoniel Boyer LPN Service: ? Author Type: ? Type: Progress Notes Filed: 01/22/2023 12:53 PM Note Text: Scan on 01/21/2023 7:23 PM by Provider, Liana PALizbethC: Ultrasound Scan on 01/21/2023 7:29 PM by Provider, Liana PALizbethC: Ultrasound [facility] 01-22-2023 History of Presen t illness Narrative Scan on 01/21/2023 7:23 PM by Liana Gregorio PA-C: Ultrasound Scan on 01/21/2023 7:29 PM by Liana Gregorio PA-C: Ultrasound documented in this encounter [facility] 12-26-2022 Note HNO ID: [id number] Author: Lara Hoffman PA-C Service: ? Author Type: Physician Artist Manager Type: Progress Notes Filed: 12/26/2022 12:41 PM Note Text: Chief Complaint Patient presents with: Recheck HPI Elizabeth Mcnally is a 77 year old female who presents here today for recheck. Patient states that she may be noting some improvement. Doesn't feel worse. Still has significant swelling. Less erythema. She is hesitant to start medication currently for cholesterol. Would like to follow up in 1 month to discuss. Past medical history, appointments, medications, allergies reviewed. Previous Medical History PAST MEDICAL HISTORY Diagnosis Date Adjustment reaction 03/01/2010 Allergic rhinitis 01/05/2014 Allergy-induced asthma 01/05/[address] Angel Isbell Arthritis of both hips 03/13/2022 Bilateral leg edema 08/11/2020 Breast density 06/27/2021 Left CKD (chronic kidney disease) stage 3, GFR 30-59 ml/min ([facility]) 02/25/2019 Fecal urgency 07/30/2022 Saw Gen Surgery 06/2022 and refused colonoscopy. 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 03/01/2010 Primary osteoarthritis of left knee 11/18/2017 Proteinuria 02/13/2014 Repeat test was neg Right knee pain 02/23/2014 Under workman's comp Synovial cyst of left popliteal space 08/04/2020 Thoracic or lumbosacral neuritis or radiculitis, unspecified 07/04/2014 Varicose veins of both lower extremities 09/08/2019 Lt>Rt Venous insufficiency 10/03/2009 Vitamin D deficiency Previous Surgical History PAST SURGICAL HISTORY Procedure Laterality Date BX OF BREAST; INCISIONAL Left 07/06/2021 LIGJ DIVJ AND/EXCJ VARICOSE VEIN CLUSTER 1 LEG Varicose Vein Surgery PAST SURGICAL HISTORY OF 05/1999 EXCISSION L FOOT LESIONS X2 PAST SURGICAL HISTORY OF 1973 LAPRASCOPY FOR FERTILITY STRESS TEST 08/05/2016 normal UNSPECIFIED ORAL SURGERY PROCEDURE, BY REPORT Boone teeth extracted/ and implant Family History FAMILY HISTORY Problem Relation Age of Onset Cancer Mother THROAT AND TONGUE FROM THIS AND ABOVE Arthritis Mother Rheumatoid other (HODGKINS DISEASE) Mother Diabetes Father Type 2 Stroke Father age 92 at time of other (KIDNEY FAILURE) Father FROM THIS Breast Cancer Other maternal first cousin Patient Allergies ALLERGIES Allergen Reactions Mar [Fexofenadi* Rash Singulair [Monteluk* Rash itching and rash (tried twice) Current Medications Current Outpatient Medications on File Prior to Visit Medication Sig vancomycin (VANCOCIN) 125 mg capsule take 1 capsule by mouth every 6 hours sulfamethoxazole-trimethoprim (BACTRIM DS) 800-160 mg per tablet Take 1 tablet by mouth twice daily for 10 days. Cholecalciferol, Vitamin D3, 50 mcg (2,000 unit) cap Take 1 capsule by mouth once daily. fluticasone (FLONASE) 50 mcg/actuation nasal spray Use 2 Sprays in each nostril once daily. acetaminophen 650 mg CR tablet Take 650 mg by mouth every 8 hours as needed. acyclovir (ZOVIRAX) 200 mg capsule Take 200 mg by mouth three times daily. (Patient not taking: Reported on 12/23/2022) cephALEXin (KEFLEX) 500 mg capsule Take 500 mg by mouth three times daily. (Patient not taking: Reported on 12/26/2022) albuterol HFA (PROVENTIL HFA, VENTOLIN HFA) 90 mcg/actuation inhaler Inhale 2 Puffs as instructed every 4 hours as needed for wheezing/shortness of breath. (Patient not taking: Reported on 07/19/2022) No current facility-administered medications on file prior to visit. Social History Social History Tobacco Use Smoking status: Never Smokeless tobacco: Never Vaping Use Vaping Use: Never used Substance Use Topics Alcohol use: No Drug use: No Review of Symptoms REVIEW OF SYSTEMS See hpi EXAM: BP 130/70 (BP Site: Right Arm, BP Position: Sitting, BP Cuff Size: Large Adult) Pulse 73 Temp 36.8 ?C (98.3 ?F) Resp 18 Wt 101.2 kg (223 lb) BMI 39.15 kg/m? General Appearance: Well appearing, alert, in no acute distress, well-hydrated, well nourished. and Obese. Skin: compared to 12/23. Less erythema and warmth. Still swollen with edema and tenderness. Scab appears to be healing well. No drainage.. Health Maintenance List COVID-19 VACCINE(5 - Booster for Moderna series) due on 02/28/2022 SHINGRIX VACCINE(3 of 3) due on 07/24/2022 DTAP,TDAP,TD(3 - Td or Tdap) due on 03/29/2023 HEMOGLOBIN/HEMATOCRIT due on 07/19/2023 SERUM CREATININE due on 09/15/2023 ANNUAL PCP TEAM CHRONIC DISEASE VISIT due on 12/24/2023 DIABETES SCREEN due on 09/14/2025 LIPID SCREEN due on 09/15/2027 BONE DENSITY Completed ADVANCE DIRECTIVE DISCUSSION Completed DEPRESSION ASSESSMENT Completed HEPATITIS C SCREENING Comple (more content not included)... [facility] 12-26-2022 History of Presen t illness Narrative Chief Complaint Patient presents with: Recheck HPI Eilzabeth Mcnally is a 77 year old female who presents here today for recheck. Patient states that she may be noting some improvement. Doesn't feel worse. Still has significant swelling. Less erythema. She is hesitant to start medication currently for cholesterol. Would like to follow up in 1 month to discuss. Past medical history, appointments, medications, allergies reviewed. Previous Medical History PAST MEDICAL HISTORY Diagnosis Date Adjustment reaction 03/01/2010 Allergic rhinitis 01/05/2014 Allergy-induced asthma 01/05/[address] Angel Isbell Arthritis of both hips 03/13/2022 Bilateral leg edema 08/11/2020 Breast density 06/27/2021 Left CKD (chronic kidney disease) stage 3, GFR 30-59 ml/min ([facility]) 02/25/2019 Fecal urgency 07/30/2022 Saw Gen Surgery 06/2022 and refused colonoscopy. 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 03/01/2010 Primary osteoarthritis of left knee 11/18/2017 Proteinuria 02/13/2014 Repeat test was neg Right knee pain 02/23/2014 Under workman's comp Synovial cyst of left popliteal space 08/04/2020 Thoracic or lumbosacral neuritis or radiculitis, unspecified 07/04/2014 Varicose veins of both lower extremities 09/08/2019 Lt>Rt Venous insufficiency 10/03/2009 Vitamin D deficiency Previous Surgical History PAST SURGICAL HISTORY Procedure Laterality Date BX OF BREAST; INCISIONAL Left 07/06/2021 LIGJ DIVJ &/EXCJ VARICOSE VEIN CLUSTER 1 LEG Varicose Vein Surgery PAST SURGICAL HISTORY OF 05/1999 EXCISSION L FOOT LESIONS X2 PAST SURGICAL HISTORY OF 1973 LAPRASCOPY FOR FERTILITY STRESS TEST 08/05/2016 normal UNSPECIFIED ORAL SURGERY PROCEDURE, BY REPORT Boone teeth extracted/ and implant Family History FAMILY HISTORY Problem Relation Age of Onset Cancer Mother THROAT AND TONGUE FROM THIS AND ABOVE Arthritis Mother Rheumatoid other (HODGKINS DISEASE) Mother Diabetes Father Type 2 Stroke Father age 92 at time of other (KIDNEY FAILURE) Father FROM THIS Breast Cancer Other maternal first cousin Patient Allergies ALLERGIES Allergen Reactions Mar [Fexofenadi* Rash Singulair [Monteluk* Rash itching and rash (tried twice) Current Medications Current Outpatient Medications on File Prior to Visit Medication Sig vancomycin (VANCOCIN) 125 mg capsule take 1 capsule by mouth every 6 hours sulfamethoxazole-trimethoprim (BACTRIM DS) 800-160 mg per tablet Take 1 tablet by mouth twice daily for 10 days. Cholecalciferol, Vitamin D3, 50 mcg (2,000 unit) cap Take 1 capsule by mouth once daily. fluticasone (FLONASE) 50 mcg/actuation nasal spray Use 2 Sprays in each nostril once daily. acetaminophen 650 mg CR tablet Take 650 mg by mouth every 8 hours as needed. acyclovir (ZOVIRAX) 200 mg capsule Take 200 mg by mouth three times daily. (Patient not taking: Reported on 12/23/2022) cephALEXin (KEFLEX) 500 mg capsule Take 500 mg by mouth three times daily. (Patient not taking: Reported on 12/26/2022) albuterol HFA (PROVENTIL HFA, VENTOLIN HFA) 90 mcg/actuation inhaler Inhale 2 Puffs as instructed every 4 hours as needed for wheezing/shortness of breath. (Patient not taking: Reported on 07/19/2022) No current facility-administered medications on file prior to visit. Social History Social History Tobacco Use Smoking status: Never Smokeless tobacco: Never Vaping Use Vaping Use: Never used Substance Use Topics Alcohol use: No Drug use: No Review of Symptoms REVIEW OF SYSTEMS See hpi EXAM: BP 130/70 (BP Site: Right Arm, BP Position: Sitting, BP Cuff Size: Large Adult) Pulse 73 Temp 36.8 C (98.3 F) Resp 18 Wt 101.2 kg (223 lb) BMI 39.15 kg/m General Appearance: Well appearing, alert, in no acute distress, well-hydrated, well nourished. and Obese. Skin: compared to 12/23. Less erythema and warmth. Still swollen with edema and tenderness. Scab appears to be healing well. No drainage.. Health Maintenance List COVID-19 VACCINE(5 - Booster for Moderna series) due on 02/28/2022 SHINGRIX VACCINE(3 of 3) due on 07/24/2022 DTAP,TDAP,TD(3 - Td or Tdap) due on 03/29/2023 HEMOGLOBIN/HEMATOCRIT due on 07/19/2023 SERUM CREATININE due on 09/15/2023 ANNUAL PCP TEAM CHRONIC DISEASE VISIT due on 12/24/2023 DIABETES SCREEN due on 09/14/2025 LIPID SCREEN due on 09/15/2027 BONE DENSITY Completed ADVANCE DIRECTIVE DISCUSSION Completed DEPRESSION ASSESSMENT Completed HEPATITIS C SCREENING Completed SPIROMETRY Discontinued INFLUENZA Discontinued COLORECTAL CANCER SCREENING Discontinued PNEUMOCOCCAL: 65+ Discontinued Data reviewed ASSESSMENT/PLAN: 1. Cellulitis of skin - ICD9: 682.9, ICD10: L03.90 (primary diagnosis) Improving. Keep appt with wound center next week but return sooner if issues. 2. Leg swelling - ICD9: 729.81, ICD10: M79.89 As above 3. Mixed hyperlipidemia - ICD9: 272.2, ICD10: E78.2 Will recheck labs and discuss medication at next visit. Advised patient to set up 4-6 week recheck - LIPID PANEL, NONFASTING 4. Remote history of stroke - ICD9: V12.54, ICD10: Z86.73 Patient willing to see neurology based on MRI findings. - CONSULT TO NEUROLOGY 5. C. difficile colitis - ICD9: 008.45, ICD10: A04.72 Finish atb. If still having diarrhea will need retested. Lara Hoffman PA-C documented in this encounter [facility] 12-25-2022 Note HNO ID: [id number] Author: Otoniel Boyer LPN Service: ? Author Type: ? Type: Progress Notes Filed: 12/25/2022 1:38 PM Note Text: Patient's left lower leg was dressed with one non-adherent pad, wrapped with conforming stretch gauze bandage and whole area was then covered with a 4 radha wrap. Pt tolerated procedure well. Otoniel Boyre LPN [facility] 12-24-2022 Miscellaneous Notes Patient notified of results and provider's instructions. Patient verbalizes understanding. Otoniel Boyer LPN Tried calling patient no answer or vm set up Mery Kemp Ma Neg for DVT. 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 This could be potential cause of increased swelling too. Continue as we discussed. Received pt's US report. Results on your desk for review. Otoniel Boyer LPN documented in this encounter [facility] 12-23-2022 Note HNO ID: [id number] Author: Lara Hoffman PA-C Service: ? Author Type: Physician Artist Manager Type: Progress Notes Filed: 12/23/2022 12:42 PM Note Text: Chief Complaint Patient presents with: Recheck: Left leg ccellulitis HPI Elizabeth Mcnally is a 77 year old female who presents here today for Above Complaints.. Patient was Dx with cellulitis by hospital on 12/13/22. On 12/19 she was seen in hospital and things were improving. The following day, patient developed severe diarrhea and present back to Hospital. She was dx with c. Diff. While in hospital patient also underwent stroke protocol. No acute concerns but MRI showed evidence for remote stroke. Patient reports that her leg symptoms are worsening today compared to the weekend. Having more pain and swelling. + warmth. She only has 1 day of keflex left. Unable to see wound clinic until January 01. She is also on vanco for c. Diff. Has noted improvement compared to weekend. Past medical history, appointments, medications, allergies reviewed. Previous Medical History PAST MEDICAL HISTORY Diagnosis Date Adjustment reaction 03/01/2010 Allergic rhinitis 01/05/2014 Allergy-induced asthma 01/05/[address] Angel Isbell Arthritis of both hips 03/13/2022 Bilateral leg edema 08/11/2020 Breast density 06/27/2021 Left CKD (chronic kidney disease) stage 3, GFR 30-59 ml/min ([facility]) 02/25/2019 Fecal urgency 07/30/2022 Saw Gen Surgery 06/2022 and refused colonoscopy. 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 03/01/2010 Primary osteoarthritis of left knee 11/18/2017 Proteinuria 02/13/2014 Repeat test was neg Right knee pain 02/23/2014 Under workman's comp Synovial cyst of left popliteal space 08/04/2020 Thoracic or lumbosacral neuritis or radiculitis, unspecified 07/04/2014 Varicose veins of both lower extremities 09/08/2019 Lt>Rt Venous insufficiency 10/03/2009 Vitamin D deficiency Previous Surgical History PAST SURGICAL HISTORY Procedure Laterality Date BX OF BREAST; INCISIONAL Left 07/06/2021 LIGJ DIVJ AND/EXCJ VARICOSE VEIN CLUSTER 1 LEG Varicose Vein Surgery PAST SURGICAL HISTORY OF 05/1999 EXCISSION L FOOT LESIONS X2 PAST SURGICAL HISTORY OF 1973 LAPRASCOPY FOR FERTILITY STRESS TEST 08/05/2016 normal UNSPECIFIED ORAL SURGERY PROCEDURE, BY REPORT Boone teeth extracted/ and implant Family History FAMILY HISTORY Problem Relation Age of Onset Cancer Mother THROAT AND TONGUE FROM THIS AND ABOVE Arthritis Mother Rheumatoid other (HODGKINS DISEASE) Mother Diabetes Father Type 2 Stroke Father age 92 at time of other (KIDNEY FAILURE) Father FROM THIS Breast Cancer Other maternal first cousin Patient Allergies ALLERGIES Allergen Reactions Mar [Fexofenadi* Rash Singulair [Monteluk* Rash itching and rash (tried twice) Current Medications Current Outpatient Medications on File Prior to Visit Medication Sig vancomycin (VANCOCIN) 125 mg capsule take 1 capsule by mouth every 6 hours cephALEXin (KEFLEX) 500 mg capsule Take 500 mg by mouth three times daily. Cholecalciferol, Vitamin D3, 50 mcg (2,000 unit) cap Take 1 capsule by mouth once daily. fluticasone (FLONASE) 50 mcg/actuation nasal spray Use 2 Sprays in each nostril once daily. acetaminophen 650 mg CR tablet Take 650 mg by mouth every 8 hours as needed. acyclovir (ZOVIRAX) 200 mg capsule Take 200 mg by mouth three times daily. (Patient not taking: Reported on 12/23/2022) albuterol HFA (PROVENTIL HFA, VENTOLIN HFA) 90 mcg/actuation inhaler Inhale 2 Puffs as instructed every 4 hours as needed for wheezing/shortness of breath. (Patient not taking: Reported on 07/19/2022) No current facility-administered medications on file prior to visit. Social History Social History Tobacco Use Smoking status: Never Smokeless tobacco: Never Vaping Use Vaping Use: Never used Substance Use Topics Alcohol use: No Drug use: No Review of Symptoms REVIEW OF SYSTEMS See hpi EXAM: BP 150/100 (BP Site: Left Arm, BP Position: Sitting, BP Cuff Size: Large Adult) Pulse 65 Temp 36.8 ?C (98.2 ?F) Resp 18 Wt 103 kg (227 lb) BMI 39.85 kg/m? BP 150/77 (BP Site: Right Arm, BP Position: Sitting, BP Cuff Size: Extra Large Adult) Pulse 67 Temp 36.8 ?C (98.2 ?F) Resp 18 Wt 103 kg (227 lb) BMI 39.85 kg/m? General Appearance: Well appearing, alert, in no acute distress, well-hydrated, well nourished.. Extremities: LLE with +erythema and edema. Tender to palp. No active drainage.. previous blistering area has scabbed over. Health Maintenance List COVID-19 VACCINE(5 - Booster for Moderna series) due on 02/28/2022 (more content not included)... [facility] 12-19-2022 Note HNO ID: [id number] Author: Lara Hoffman PA-C Service: ? Author Type: Physician Artist Manager Type: Progress Notes Filed: 12/25/2022 1:32 PM Note Text: Chief Complaint Patient presents with: Hospital F/U HPI Elizabeth Mcnally is a 77 year old female who presents here today for Hospital Discharge Follow up.. Discharge Date 12/17/2022 Patient was admitted to [facility] due to Cellulitis and CEASAR with concerns for sepsis. Sepsis was ruled out and ID was consulted for the cellulitis. Patient was tx with cefazolin while in hospital. She was d/c'd home on 12/17/2022 with 5 additional days of keflex 500mg TID. Patient states her leg is improving although still very swollen and tender. She would like to go out of town next week. Past medical history, appointments, medications, allergies reviewed. Previous Medical History PAST MEDICAL HISTORY Diagnosis Date Adjustment reaction 03/01/2010 Allergic rhinitis 01/05/2014 Allergy-induced asthma 01/05/[address] Angel Isbell Arthritis of both hips 03/13/2022 Bilateral leg edema 08/11/2020 Breast density 06/27/2021 Left CKD (chronic kidney disease) stage 3, GFR 30-59 ml/min ([facility]) 02/25/2019 Fecal urgency 07/30/2022 Saw Gen Surgery 06/2022 and refused colonoscopy. 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 03/01/2010 Primary osteoarthritis of left knee 11/18/2017 Proteinuria 02/13/2014 Repeat test was neg Right knee pain 02/23/2014 Under workman's comp Synovial cyst of left popliteal space 08/04/2020 Thoracic or lumbosacral neuritis or radiculitis, unspecified 07/04/2014 Varicose veins of both lower extremities 09/08/2019 Lt>Rt Venous insufficiency 10/03/2009 Vitamin D deficiency Previous Surgical History PAST SURGICAL HISTORY Procedure Laterality Date BX OF BREAST; INCISIONAL Left 07/06/2021 LIGJ DIVJ AND/EXCJ VARICOSE VEIN CLUSTER 1 LEG Varicose Vein Surgery PAST SURGICAL HISTORY OF 05/1999 EXCISSION L FOOT LESIONS X2 PAST SURGICAL HISTORY OF 1973 LAPRASCOPY FOR FERTILITY STRESS TEST 08/05/2016 normal UNSPECIFIED ORAL SURGERY PROCEDURE, BY REPORT Boone teeth extracted/ and implant Family History FAMILY HISTORY Problem Relation Age of Onset Cancer Mother THROAT AND TONGUE FROM THIS AND ABOVE Arthritis Mother Rheumatoid other (HODGKINS DISEASE) Mother Diabetes Father Type 2 Stroke Father age 92 at time of other (KIDNEY FAILURE) Father FROM THIS Breast Cancer Other maternal first cousin Patient Allergies ALLERGIES Allergen Reactions Mar [Fexofenadi* Rash Singulair [Monteluk* Rash itching and rash (tried twice) Current Medications Current Outpatient Medications on File Prior to Visit Medication Sig acyclovir (ZOVIRAX) 200 mg capsule Take 200 mg by mouth three times daily. cephALEXin (KEFLEX) 500 mg capsule Take 500 mg by mouth three times daily. Cholecalciferol, Vitamin D3, 50 mcg (2,000 unit) cap Take 1 capsule by mouth once daily. fluticasone (FLONASE) 50 mcg/actuation nasal spray Use 2 Sprays in each nostril once daily. acetaminophen 650 mg CR tablet Take 650 mg by mouth every 8 hours as needed. albuterol HFA (PROVENTIL HFA, VENTOLIN HFA) 90 mcg/actuation inhaler Inhale 2 Puffs as instructed every 4 hours as needed for wheezing/shortness of breath. (Patient not taking: Reported on 07/19/2022) No current facility-administered medications on file prior to visit. Social History Social History Tobacco Use Smoking status: Never Smokeless tobacco: Never Vaping Use Vaping Use: Never used Substance Use Topics Alcohol use: No Drug use: No Review of Symptoms REVIEW OF SYSTEMS See hpi EXAM: BP 146/100 (BP Site: Left Arm, BP Position: Sitting, BP Cuff Size: Large Adult) Pulse 74 Temp 36.7 ?C (98.1 ?F) Resp 18 Wt 104.8 kg (231 lb) BMI 40.55 kg/m? BP 155/84 (BP Site: Left Arm, BP Position: Sitting, BP Cuff Size: Extra Large Adult) Pulse 71 Temp 36.7 ?C (98.1 ?F) Resp 18 Wt 104.8 kg (231 lb) BMI 40.55 kg/m? General Appearance: Well appearing, alert, in no acute distress, well-hydrated, well nourished.. Extremity: Left leg with significant swelling and erythema. Bullous noted on posterior lower leg. No active drainage. Tender to palp.. Health Maintenance List COVID-19 VACCINE(5 - Booster for Moderna series) due on 02/28/2022 SHINGRIX VACCINE(3 of 3) due on 07/24/2022 DTAP,TDAP,TD(3 - Td or Tdap) due on 03/29/2023 HEMOGLOBIN/HEMATOCRIT due on 07/19/2023 SERUM CREATININE due on 09/15/2023 ANNUAL PCP TEAM CHRONIC DISEASE VISIT due on 11/13/2023 DIABETES SCREEN due on 09/14/2025 LIPID SCREEN due on 09/15/2027 BONE DENSITY Completed ADVANCE (more content not included)... [facility] 12-19-2022 History of Presen t illness Narrative Chief Complaint Patient presents with: Hospital F/U HPI Elizabeth Mcnally is a 77 year old female who presents here today for Hospital Discharge Follow up.. Discharge Date 12/17/2022 Patient was admitted to [facility] due to Cellulitis and CEASAR with concerns for sepsis. Sepsis was ruled out and ID was consulted for the cellulitis. Patient was tx with cefazolin while in hospital. She was d/c'd home on 12/17/2022 with 5 additional days of keflex 500mg TID. Patient states her leg is improving although still very swollen and tender. She would like to go out of town next week. Past medical history, appointments, medications, allergies reviewed. Previous Medical History PAST MEDICAL HISTORY Diagnosis Date Adjustment reaction 03/01/2010 Allergic rhinitis 01/05/2014 Allergy-induced asthma 01/05/[address] Angel Isbell Arthritis of both hips 03/13/2022 Bilateral leg edema 08/11/2020 Breast density 06/27/2021 Left CKD (chronic kidney disease) stage 3, GFR 30-59 ml/min ([facility]) 02/25/2019 Fecal urgency 07/30/2022 Saw Gen Surgery 06/2022 and refused colonoscopy. 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 03/01/2010 Primary osteoarthritis of left knee 11/18/2017 Proteinuria 02/13/2014 Repeat test was neg Right knee pain 02/23/2014 Under workman's comp Synovial cyst of left popliteal space 08/04/2020 Thoracic or lumbosacral neuritis or radiculitis, unspecified 07/04/2014 Varicose veins of both lower extremities 09/08/2019 Lt>Rt Venous insufficiency 10/03/2009 Vitamin D deficiency Previous Surgical History PAST SURGICAL HISTORY Procedure Laterality Date BX OF BREAST; INCISIONAL Left 07/06/2021 LIGJ DIVJ &/EXCJ VARICOSE VEIN CLUSTER 1 LEG Varicose Vein Surgery PAST SURGICAL HISTORY OF 05/1999 EXCISSION L FOOT LESIONS X2 PAST SURGICAL HISTORY OF 1973 LAPRASCOPY FOR FERTILITY STRESS TEST 08/05/2016 normal UNSPECIFIED ORAL SURGERY PROCEDURE, BY REPORT Boone teeth extracted/ and implant Family History FAMILY HISTORY Problem Relation Age of Onset Cancer Mother THROAT AND TONGUE FROM THIS AND ABOVE Arthritis Mother Rheumatoid other (HODGKINS DISEASE) Mother Diabetes Father Type 2 Stroke Father age 92 at time of other (KIDNEY FAILURE) Father FROM THIS Breast Cancer Other maternal first cousin Patient Allergies ALLERGIES Allergen Reactions Mar [Fexofenadi* Rash Singulair [Monteluk* Rash itching and rash (tried twice) Current Medications Current Outpatient Medications on File Prior to Visit Medication Sig acyclovir (ZOVIRAX) 200 mg capsule Take 200 mg by mouth three times daily. cephALEXin (KEFLEX) 500 mg capsule Take 500 mg by mouth three times daily. Cholecalciferol, Vitamin D3, 50 mcg (2,000 unit) cap Take 1 capsule by mouth once daily. fluticasone (FLONASE) 50 mcg/actuation nasal spray Use 2 Sprays in each nostril once daily. acetaminophen 650 mg CR tablet Take 650 mg by mouth every 8 hours as needed. albuterol HFA (PROVENTIL HFA, VENTOLIN HFA) 90 mcg/actuation inhaler Inhale 2 Puffs as instructed every 4 hours as needed for wheezing/shortness of breath. (Patient not taking: Reported on 07/19/2022) No current facility-administered medications on file prior to visit. Social History Social History Tobacco Use Smoking status: Never Smokeless tobacco: Never Vaping Use Vaping Use: Never used Substance Use Topics Alcohol use: No Drug use: No Review of Symptoms REVIEW OF SYSTEMS See hpi EXAM: BP 146/100 (BP Site: Left Arm, BP Position: Sitting, BP Cuff Size: Large Adult) Pulse 74 Temp 36.7 C (98.1 F) Resp 18 Wt 104.8 kg (231 lb) BMI 40.55 kg/m BP 155/84 (BP Site: Left Arm, BP Position: Sitting, BP Cuff Size: Extra Large Adult) Pulse 71 Temp 36.7 C (98.1 F) Resp 18 Wt 104.8 kg (231 lb) BMI 40.55 kg/m General Appearance: Well appearing, alert, in no acute distress, well-hydrated, well nourished.. Extremity: Left leg with significant swelling and erythema. Bullous noted on posterior lower leg. No active drainage. Tender to palp.. Health Maintenance List COVID-19 VACCINE(5 - Booster for Moderna series) due on 02/28/2022 SHINGRIX VACCINE(3 of 3) due on 07/24/2022 DTAP,TDAP,TD(3 - Td or Tdap) due on 03/29/2023 HEMOGLOBIN/HEMATOCRIT due on 07/19/2023 SERUM CREATININE due on 09/15/2023 ANNUAL PCP TEAM CHRONIC DISEASE VISIT due on 11/13/2023 DIABETES SCREEN due on 09/14/2025 LIPID SCREEN due on 09/15/2027 BONE DENSITY Completed ADVANCE DIRECTIVE DISCUSSION Completed DEPRESSION ASSESSMENT Completed HEPATITIS C SCREENING Completed SPIROMETRY Discontinued INFLUENZA Discontinued COLORECTAL CANCER SCREENING Discontinued PNEUMOCOCCAL: 65+ Discontinued Data reviewed See above ASSESSMENT/PLAN: 1. Hospital discharge follow-up - ICD9: V67.59, ICD10: Z09 (primary diagnosis) See below - BASIC METABOLIC PNL - CBC + DIFF 2. Cellulitis of skin - ICD9: 682.9, ICD10: L03.90 Continue atb as prescribed. We will recheck on Friday the . Discussed possible red flags and when to seek medical attention. - BASIC METABOLIC PNL - CBC + DIFF 3. CEASAR (acute kidney injury) (HCC) - ICD9: 584.9, ICD10: N17.9 Resolved prior to discharge. Will recheck - BASIC METABOLIC PNL - CBC + DIFF 4. Elevated BP without diagnosis of hypertension - ICD9: 796.2, ICD10: R03.0 - Encouraged dietary sodium restriction/DASH diet - Recommended regular aerobic exercise. - Recommend home blood pressure monitoring, to bring results in on next visit - Goal of BP <130/80 - will recheck at next visit Lara Hoffman PA-C documented in this encounter [facility] 11-12-2022 Note HNO ID: [id number] Author: Lara Hoffman PA-C Service: ? Author Type: Physician Artist Manager Type: Progress Notes Filed: 11/12/2022 8:20 AM Note Text: Chief Complaint Patient presents with: Vaginal Problem: Itching and rash HPI Elizabeth Mcnally is a 77 year old female who presents here today for Above Complaints.. Patient states that for the past 5 days she has had irritation of the right side vulva. Started with a lump but then that has changed to the entire area being red and swollen. States that she started to notice a yellow discharge. No concerns for STD. Past medical history, appointments, medications, allergies reviewed. Previous Medical History PAST MEDICAL HISTORY Diagnosis Date Adjustment reaction 03/01/2010 Allergic rhinitis 01/05/2014 Allergy-induced asthma 01/05/[address] Angel Isbell Arthritis of both hips 03/13/2022 Bilateral leg edema 08/11/2020 Breast density 06/27/2021 Left CKD (chronic kidney disease) stage 3, GFR 30-59 ml/min (HCC) 02/25/2019 Fecal urgency 07/30/2022 Saw Gen Surgery 06/2022 and refused colonoscopy. 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 03/01/2010 Primary osteoarthritis of left knee 11/18/2017 Proteinuria 02/13/2014 Repeat test was neg Right knee pain 02/23/2014 Under workman's comp Synovial cyst of left popliteal space 08/04/2020 Thoracic or lumbosacral neuritis or radiculitis, unspecified 07/04/2014 Varicose veins of both lower extremities 09/08/2019 Lt>Rt Venous insufficiency 10/03/2009 Vitamin D deficiency Previous Surgical History PAST SURGICAL HISTORY Procedure Laterality Date BX OF BREAST; INCISIONAL Left 07/06/2021 LIGJ DIVJ AND/EXCJ VARICOSE VEIN CLUSTER 1 LEG Varicose Vein Surgery PAST SURGICAL HISTORY OF 05/1999 EXCISSION L FOOT LESIONS X2 PAST SURGICAL HISTORY OF 1973 LAPRASCOPY FOR FERTILITY STRESS TEST 08/05/2016 normal UNSPECIFIED ORAL SURGERY PROCEDURE, BY REPORT Boone teeth extracted/ and implant Family History FAMILY HISTORY Problem Relation Age of Onset Cancer Mother THROAT AND TONGUE FROM THIS AND ABOVE Arthritis Mother Rheumatoid other (HODGKINS DISEASE) Mother Diabetes Father Type 2 Stroke Father age 92 at time of other (KIDNEY FAILURE) Father FROM THIS Breast Cancer Other maternal first cousin Patient Allergies ALLERGIES Allergen Reactions Mar [Fexofenadi* Rash Singulair [[place]* Rash itching and rash (tried twice) Current Medications Current Outpatient Medications on File Prior to Visit Medication Sig Cholecalciferol, Vitamin D3, 50 mcg (2,000 unit) cap Take 1 capsule by mouth once daily. fluticasone (FLONASE) 50 mcg/actuation nasal spray Use 2 Sprays in each nostril once daily. acetaminophen 650 mg CR tablet Take 650 mg by mouth every 8 hours as needed. albuterol HFA (PROVENTIL HFA, VENTOLIN HFA) 90 mcg/actuation inhaler Inhale 2 Puffs as instructed every 4 hours as needed for wheezing/shortness of breath. (Patient not taking: Reported on 07/19/2022) dextromethorphan-guaiFENesin (MUCINEX DM) 30-600 mg per tablet Take 1 tablet by mouth twice daily. (Patient not taking: Reported on 07/19/2022) No current facility-administered medications on file prior to visit. Social History Social History Tobacco Use Smoking status: Never Smokeless tobacco: Never Vaping Use Vaping Use: Never used Substance Use Topics Alcohol use: No Drug use: No Review of Symptoms REVIEW OF SYSTEMS See hpi EXAM: BP 120/80 (BP Site: Left Arm, BP Position: Sitting, BP Cuff Size: Large Adult) Pulse 74 Temp 36.4 ?C (97.6 ?F) Resp 18 Wt 103.4 kg (228 lb) BMI 40.02 kg/m? General Appearance: Well appearing, alert, in no acute distress, well-hydrated, well nourished.. Skin: erythematous rash in right groin. Mildly tender and warm. +satellite lesions.. Health Maintenance List COVID-19 VACCINE(5 - Booster for Moderna series) due on 02/28/2022 SHINGRIX VACCINE(3 of 3) due on 07/24/2022 DTAP,TDAP,TD(3 - Td or Tdap) due on 03/29/2023 HEMOGLOBIN/HEMATOCRIT due on 07/19/2023 SERUM CREATININE due on 09/15/2023 ANNUAL PCP TEAM CHRONIC DISEASE VISIT due on 09/20/2023 DIABETES SCREEN due on 09/14/2025 LIPID SCREEN due on 09/15/2027 BONE DENSITY Completed ADVANCE DIRECTIVE DISCUSSION Completed DEPRESSION ASSESSMENT Completed HEPATITIS C SCREENING Completed SPIROMETRY Discontinued INFLUENZA Discontinued COLORECTAL CANCER SCREENING Discontinued PNEUMOCOCCAL: 65+ Discontinued Data reviewed ASSESSMENT/PLAN: 1. Tinea cruris - ICD9: 110.3, ICD10: B35.6 - Treat with Nizoral twice a day until rash resolves and then another week - Keep ar (more content not included)... [facility] 11-12-2022 History of Presen t illness Narrative Chief Complaint Patient presents with: Vaginal Problem: Itching and rash HPI Elizabeth Mcnally is a 77 year old female who presents here today for Above Complaints.. Patient states that for the past 5 days she has had irritation of the right side vulva. Started with a lump but then that has changed to the entire area being red and swollen. States that she started to notice a yellow discharge. No concerns for STD. Past medical history, appointments, medications, allergies reviewed. Previous Medical History PAST MEDICAL HISTORY Diagnosis Date Adjustment reaction 03/01/2010 Allergic rhinitis 01/05/2014 Allergy-induced asthma 01/05/[address] Angel Isbell Arthritis of both hips 03/13/2022 Bilateral leg edema 08/11/2020 Breast density 06/27/2021 Left CKD (chronic kidney disease) stage 3, GFR 30-59 ml/min ([facility]) 02/25/2019 Fecal urgency 07/30/2022 Saw Gen Surgery 06/2022 and refused colonoscopy. 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 03/01/2010 Primary osteoarthritis of left knee 11/18/2017 Proteinuria 02/13/2014 Repeat test was neg Right knee pain 02/23/2014 Under workman's comp Synovial cyst of left popliteal space 08/04/2020 Thoracic or lumbosacral neuritis or radiculitis, unspecified 07/04/2014 Varicose veins of both lower extremities 09/08/2019 Lt>Rt Venous insufficiency 10/03/2009 Vitamin D deficiency Previous Surgical History PAST SURGICAL HISTORY Procedure Laterality Date BX OF BREAST; INCISIONAL Left 07/06/2021 LIGJ DIVJ &/EXCJ VARICOSE VEIN CLUSTER 1 LEG Varicose Vein Surgery PAST SURGICAL HISTORY OF 05/1999 EXCISSION L FOOT LESIONS X2 PAST SURGICAL HISTORY OF 1973 LAPRASCOPY FOR FERTILITY STRESS TEST 08/05/2016 normal UNSPECIFIED ORAL SURGERY PROCEDURE, BY REPORT Boone teeth extracted/ and implant Family History FAMILY HISTORY Problem Relation Age of Onset Cancer Mother THROAT AND TONGUE FROM THIS AND ABOVE Arthritis Mother Rheumatoid other (HODGKINS DISEASE) Mother Diabetes Father Type 2 Stroke Father age 92 at time of other (KIDNEY FAILURE) Father FROM THIS Breast Cancer Other maternal first cousin Patient Allergies ALLERGIES Allergen Reactions Mar [Fexofenadi* Rash Singulair [[place]* Rash itching and rash (tried twice) Current Medications Current Outpatient Medications on File Prior to Visit Medication Sig Cholecalciferol, Vitamin D3, 50 mcg (2,000 unit) cap Take 1 capsule by mouth once daily. fluticasone (FLONASE) 50 mcg/actuation nasal spray Use 2 Sprays in each nostril once daily. acetaminophen 650 mg CR tablet Take 650 mg by mouth every 8 hours as needed. albuterol HFA (PROVENTIL HFA, VENTOLIN HFA) 90 mcg/actuation inhaler Inhale 2 Puffs as instructed every 4 hours as needed for wheezing/shortness of breath. (Patient not taking: Reported on 07/19/2022) dextromethorphan-guaiFENesin (MUCINEX DM) 30-600 mg per tablet Take 1 tablet by mouth twice daily. (Patient not taking: Reported on 07/19/2022) No current facility-administered medications on file prior to visit. Social History Social History Tobacco Use Smoking status: Never Smokeless tobacco: Never Vaping Use Vaping Use: Never used Substance Use Topics Alcohol use: No Drug use: No Review of Symptoms REVIEW OF SYSTEMS See hpi EXAM: BP 120/80 (BP Site: Left Arm, BP Position: Sitting, BP Cuff Size: Large Adult) Pulse 74 Temp 36.4 C (97.6 F) Resp 18 Wt 103.4 kg (228 lb) BMI 40.02 kg/m General Appearance: Well appearing, alert, in no acute distress, well-hydrated, well nourished.. Skin: erythematous rash in right groin. Mildly tender and warm. +satellite lesions.. Health Maintenance List COVID-19 VACCINE(5 - Booster for Moderna series) due on 02/28/2022 SHINGRIX VACCINE(3 of 3) due on 07/24/2022 DTAP,TDAP,TD(3 - Td or Tdap) due on 03/29/2023 HEMOGLOBIN/HEMATOCRIT due on 07/19/2023 SERUM CREATININE due on 09/15/2023 ANNUAL PCP TEAM CHRONIC DISEASE VISIT due on 09/20/2023 DIABETES SCREEN due on 09/14/2025 LIPID SCREEN due on 09/15/2027 BONE DENSITY Completed ADVANCE DIRECTIVE DISCUSSION Completed DEPRESSION ASSESSMENT Completed HEPATITIS C SCREENING Completed SPIROMETRY Discontinued INFLUENZA Discontinued COLORECTAL CANCER SCREENING Discontinued PNEUMOCOCCAL: 65+ Discontinued Data reviewed ASSESSMENT/PLAN: 1. Tinea cruris - ICD9: 110.3, ICD10: B35.6 - Treat with Nizoral twice a day until rash resolves and then another week - Keep area of concern very dry. Ok to use OTC antifungal powder if area is moist - concern for possible secondary infection, so will also add 5 days of bactrim. - patient to let us know if not improving. Lara Hoffman PA-C documented in this encounter [facility] 11-11-2022 Miscellaneous Notes Patient calls to report right vulvar pain and drainage. Nurse triage completed. Protocol recommends see provider within 24 hours. Appointment scheduled. Care advice reviewed. Patient verbalizes understanding. Reason for Disposition Genital area looks infected (e.g., draining sore, spreading redness) Answer Assessment - Initial Assessment Questions 1. SYMPTOM: Discomfort and drainage in the crotch. Patient reports she had a red raised area on the right vaginal area that has now gone down in size and is draining. Patient reports that drainage has a slight yellow color. No odor. Area is sore but not itchy or painful. 2. LOCATION: Right vaginal area 3. ONSET: 3 days 4. PAIN: - MILD (1-3): doesn't interfere with normal activities 5. CAUSE: Patient not certain. She said she has never had an issue in 75 years. 6. OTHER SYMPTOMS: No fever, vaginal bleeding, or pain with urination. 7. : No Protocols used: Vulvar [id number] documented in this encounter [facility] 10-29-2022 Miscellaneous Notes Pt notified of same. Letter mailed to pt per pt's request. Address verified with pt. Otoniel Boyer LPN Letter ready Pt is asking if she is eligible for a handicap placard? Pt states she has days where she is more clumsy than other days & feels she could benefit from one. Please advise. Stacey Wellington LPN documented in this encounter [facility] 10-16-2022 Note Patient Outreach (NE TNAV) ELIZABETH MCNALLY ([id number]) 1945 F Date Time Provider Department 10/16/22 MARCELA ROBLES During your visit today, we recorded the following information about you: Marcela Robles MA 10/16/2022 1:16 PM Signed POPULATION HEALTH NAVIGATION OUTREACH Action/CHRISTINA Galan Care Gaps 4.5.23 Discuss/Due for: Mammogram Screening due 06/12/2023 Follow Up previously scheduled with Frank Salinas MD for 04/09/2023 Outcome: 1st attempt - Spoke to patient Patient scheduled Mammogram Screening - production estimator completed Patient Identified by Name and : YES, via phone Outreach Outcome/Action Spoke to patient / parent / legal guardian: Patient scheduled Did you use a PCP flex slot to schedule this appointment? N/A Reason for Outreach Care Gap or Scheduling/Wellness visits Payer: Payor: [employer] MEDICARE / Plan: [employer] MEDICARE PPO / Product Type: PPO / Care Gap Reviewed:: Breast Cancer screening Reminder: Reminder note to check Health Maintenance for items below Health Maintenance items due: COVID-19 VACCINE(5 - Booster for Moderna series) due on 02/28/2022 SHINGRIX VACCINE(3 of 3) due on 07/24/2022 Navigation Signature: Marcela Robles MA October 16, 2022 9:47 AM Allergies As of Date: 10/16/2022 Noted Allergy Reaction MAR (FEXOFENADINE HCL) 11/07/2005 2 - Rash SINGULAIR (MONTELUKAST) 01/24/2016 2 - Rash Comments: itching and rash (tried twice) Date Reviewed: 09/19/2022 Reviewed by: Otoniel Boyer LPN - Fully Assessed Reason for Visit: Population Health Navigation Outreach [3910] Cmt: Tysonna Care Gaps 4.5.23 Primary Visit Diagnosis:Encounter for screening mammogram for malignant neoplasm of breast [Z12.31] Order(s):BERHANE SCREENING [[id number]] Order #: [id number] FUTURE Prescriptions as of 10/16/2022 - Cholecalciferol, Vitamin D3, 50 mcg (2,000 unit) cap Take 1 capsule by mouth once daily. - fluticasone (FLONASE) 50 mcg/actuation nasal spray Use 2 Sprays in each nostril once daily. - albuterol HFA (PROVENTIL HFA, VENTOLIN HFA) 90 mcg/actuation inhaler Inhale 2 Puffs as instructed every 4 hours as needed for wheezing/shortness of breath. - dextromethorphan-guaiFENesin (MUCINEX DM) 30-600 mg per tablet Take 1 tablet by mouth twice daily. - acetaminophen 650 mg CR tablet Take 650 mg by mouth every 8 hours as needed. Problem List As Of Date 10/16/2022 Noted Resolved Impaired fasting glucose [R73.01] 10/03/2009 Routine general medical examination at [facility]*10/03/2009 04/20/2012 Class: Chronic Mixed hyperlipidemia [E78.2] 10/03/2009 Venous insufficiency [I87.2] 10/03/2009 Routine gynecological examination [Z01.419] 01/02/2010 04/20/2012 Class: Chronic Adjustment reaction [F43.20] 03/01/2010 Marital conflict [Z63.0] 03/01/2010 Lupus (HCC) [M32.9] 01/05/2014 10/13/2020 Allergic rhinitis [J30.9] 01/05/2014 Allergy-induced asthma [J45.909] 01/05/2014 Proteinuria [R80.9] 02/13/2014 Right knee pain [M25.561] 02/23/2014 Vitamin D deficiency [E55.9] 02/23/2014 Thoracic or lumbosacral neuritis or radiculitis*07/04/2014 Medicare annual wellness visit, subsequent [Z00*07/31/2017 Screening for colon cancer [Z12.11] 07/31/2017 Primary osteoarthritis of left knee [M17.12] 11/18/2017 CKD (chronic kidney disease) stage 3, GFR 30-59*02/25/2019 Varicose veins of both lower extremities [I83.9*09/08/2019 Medication management [Z79.899] 09/08/2019 Encounter for screening mammogram for breast ca*09/08/2019 Synovial cyst of left popliteal space [M71.22] 08/04/2020 Bilateral leg edema [R60.0] 08/11/2020 Hypersomnia [G47.10] 03/14/2021 Snores [R06.83] 03/14/2021 Obesity, Class III, BMI 40-49.9 (morbid obesity*03/14/2021 Chronic pain of both knees [M25.561, M25.562, G*05/16/2021 Advance directive discussed with patient [Z71.8*09/10/2021 Arthritis of both hips [M16.0] 03/13/2022 Fecal urgency [R15.2] 07/30/2022 Encounter Status:Closed by MARCELA ROBLES on 10/16/22 [facility] 10-16-2022 Note HNO ID: [id number] Author: Marcela Robles MA Service: ? Author Type: Installation Specialist Type: Progress Notes Filed: 10/16/2022 1:16 PM Note Text: POPULATION HEALTH NAVIGATION OUTREACH Action/ tna Care Gaps 4.5.23 Discuss/Due for: Mammogram Screening due 06/12/2023 Follow Up previously scheduled with Frank Salinas MD for 04/09/2023 Outcome: 1st attempt - Spoke to patient Patient scheduled Mammogram Screening - production estimator completed Patient Identified by Name and : YES, via phone Outreach Outcome/Action Spoke to patient / parent / legal guardian: Patient scheduled Did you use a PCP flex slot to schedule this appointment? N/A Reason for Outreach Care Gap or Scheduling/Wellness visits Payer: Payor: [employer] MEDICARE / Plan: [employer] MEDICARE PPO / Product Type: PPO / Care Gap Reviewed:: Breast Cancer screening Reminder: Reminder note to check Health Maintenance for items below Health Maintenance items due: COVID-19 VACCINE(5 - Booster for Moderna series) due on 02/28/2022 SHINGRIX VACCINE(3 of 3) due on 07/24/2022 Navigation Signature: Marcela Robles MA October 16, 2022 9:47 AM [facility] 10-16-2022 History of Presen t illness Narrative POPULATION HEALTH NAVIGATION OUTREACH Action/I [employer] Care Gaps 4.5.23 Discuss/Due for: Mammogram Screening due 06/12/2023 Follow Up previously scheduled with Frank Salinas MD for 04/09/2023 Outcome: 1st attempt - Spoke to patient Patient scheduled Mammogram Screening - production estimator completed Patient Identified by Name and : YES, via phone Outreach Outcome/Action Spoke to patient / parent / legal guardian: Patient scheduled Did you use a PCP flex slot to schedule this appointment? N/A Reason for Outreach Care Gap or Scheduling/Wellness visits Payer: Payor: AET MEDICARE / Plan: [employer] MEDICARE PPO / Product Type: PPO / Care Gap Reviewed:: Breast Cancer screening Reminder: Reminder note to check Health Maintenance for items below Health Maintenance items due: COVID-19 VACCINE(5 - Booster for Moderna series) due on 02/28/2022 SHINGRIX VACCINE(3 of 3) due on 07/24/2022 Navigation Signature: Marcela Robles MA October 16, 2022 9:47 AM documented in this encounter [facility] 09-19-2022 Note HNO ID: [id number] Author: Lara Hoffman PA-C Service: ? Author Type: Physician Artist Manager Type: Progress Notes Filed: 09/19/2022 1:45 PM Note Text: Medicare Yearly Visit Medical B eligibilty date unable to find Date of last exam 09/10/2021 PAST MEDICAL HISTORY Diagnosis Date Adjustment reaction 03/01/2010 Allergic rhinitis 01/05/2014 Allergy-induced asthma 01/05/[address] Angel Isbell Arthritis of both hips 03/13/2022 Bilateral leg edema 08/11/2020 Breast density 06/27/2021 Left CKD (chronic kidney disease) stage 3, GFR 30-59 ml/min ([facility]) 02/25/2019 Fecal urgency 07/30/2022 Saw Gen Surgery 06/2022 and refused colonoscopy. 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 03/01/2010 Primary osteoarthritis of left knee 11/18/2017 Proteinuria 02/13/2014 Repeat test was neg Right knee pain 02/23/2014 Under workman's comp Synovial cyst of left popliteal space 08/04/2020 Thoracic or lumbosacral neuritis or radiculitis, unspecified 07/04/2014 Varicose veins of both lower extremities 09/08/2019 Lt>Rt Venous insufficiency 10/03/2009 Vitamin D deficiency PAST SURGICAL HISTORY Procedure Laterality Date BX OF BREAST; INCISIONAL Left 07/06/2021 LIGJ DIVJ AND/EXCJ VARICOSE VEIN CLUSTER 1 LEG Varicose Vein Surgery PAST SURGICAL HISTORY OF 05/1999 EXCISSION L FOOT LESIONS X2 PAST SURGICAL HISTORY OF 1973 LAPRASCOPY FOR FERTILITY STRESS TEST 08/05/2016 normal UNSPECIFIED ORAL SURGERY PROCEDURE, BY REPORT Boone teeth extracted/ and implant ALLERGIES: Mar [Fexofenadine Hcl] and Singulair [Montelukast] Medications reviewed: Yes FAMILY HISTORY Problem Relation Age of Onset Cancer Mother THROAT AND TONGUE FROM THIS AND ABOVE Arthritis Mother Rheumatoid other (HODGKINS DISEASE) Mother Diabetes Father Type 2 Stroke Father age 92 at time of other (KIDNEY FAILURE) Father FROM THIS Breast Cancer Other maternal first cousin SOCIAL HISTORY: Social History Tobacco Use Smoking status: Never Smokeless tobacco: Never Vaping Use Vaping Use: Never used Substance Use Topics Alcohol use: No Drug use: No Elizabeth gets sporadic irregular exercise. She watches her diet for sodium, low fat and low cholesterol generally not very much. List of current specialists seen: None End of Live Planning discussed including patients advanced directive wishes: Yes I am willing to follow Elizabeth's advanced directives. Depression Screening 10/11/2020 03/29/2022 07/19/2022 09/19/2022 PHQ-2 Score 0 0 1 1 Depression screening tool completed and reviewed. Based on score and interview, patient is not at risk for depression. Screening tool discussed with patient, and I recommended no further intervention at this time. Functional Ability/Safety Screen 1. Was the patient's timed Up and Go test unsteady or longer than 30 seconds? No 2. Does the patient need help with the phone, transportation, shopping,preparing meals, housework, laundry, medications or managing money? No 3. Does your home have rugs in the hallway, lack of grab bars in the bathroom (Y), lack of handrails on the stairs or have poor lighting? No Hearing Evaluation: hard of hearing PHYSICAL EXAM BP 112/82 (BP Site: Left Arm, BP Position: Sitting, BP Cuff Size: Large Adult) Pulse 68 Temp 36.2 ?C (97.2 ?F) Resp 16 Ht 160.8 cm (5' 3.29 ) Wt 104.8 kg (231 lb) BMI 40.55 kg/m? Alert and oriented X 3: YES Body mass index is 40.55 kg/m?. Visual acuity: patient declines ASSESSMENT/PLAN: 76 year old female The following prevention plan was discussed during the office visit and provided to the patient: See below Lara Hoffman PA-C Chief Complaint Patient presents with: Medicare Wellness Exam HPI Elizabeth Mcnally is a 76 year old female who presents here today for extensive exam. Patient with hx of hyperlipidemia, asthma, fecal urgency, CKD, impaired fasting glucose, obesity, vit d def, and those as below. Has had some left toe pain for a while - for at least a year. States that if she bumps it is when she notices the pain. Past medical history, appointments, medications, allergies reviewed. Previous Medical History PAST MEDICAL HISTORY Diagnosis Date Adjustment reaction 03/01/2010 Allergic rhinitis 01/05/2014 Allergy-induced asthma 01/05/[address] Angel Isbell Arthritis of both hips 03/13/2022 Bilateral leg edema 08/11/2020 Breast density 06/27/2021 Left CKD (chronic kidney disease) stage 3, GFR 30-59 ml/min ([facility]) 02/25/2019 Fecal urgency 07/30/2022 Saw Gen Surgery 06/2022 and refused colonoscopy. Impaired fasting glucose 10/03/2009 Lupus ([facility]) 01/05/2014 Not wanting t (more content not included)... [facility] 08-02-2022 History of Presen t illness Narrative Cc: recheck Diarrhea HPI: patient here today for a recheck on diarrhea. She saw Dr. Cuellar on [address]. Dr. cuellar felt that the diarrhea was not true diarrhea by definition and more of a result a fecal urgency. She recommended fiber and fluids in diet. Colonoscopy was recommended however declined by patient. Patient states that she felt that the colonoscopy recommendation wasn t stressed during the visit. Patient states she hasn t really made significant changes in her diet yet. She feels that she gets enough fiber already. She has cut out milk. She continues to have loose stool and urgency. although symptoms seem to be somewhat better. ROS: See HPI. She denies chest pain or shortness of breath. Vitals: BP: 120/84, pulse: 74, weight: 231.8 pounds respiratory rate:18. Pulse Ox: 97% Physical exam: General appearance: healthy and no acute distress obese Assessment/plan: 1. Change in bowel habit. Continue with recommendations from general surgery. Consider consult to Gastro. I still advise a colonoscopy. Patient wishes to monitor her symptoms for now, and will let us know if she changes her mind on these consults. 2. Fecal urgency. As above. Lara Hoffman PA-C documented in this encounter [facility] 07-25-2022 History of Presen t illness Narrative Elizabeth Mcnally 1945 REFERRING PHYSICIAN: Lara Hoffman PA-C CHIEF COMPLAINT: Consult (colonoscopy) HPI: The patient is a 76 year old female referred for endoscopy. Elizabeth notes loose bowel movements. This was noted in the beginning of May. She states that she would have 1-2 bowel movements per day. She notes fecal urgency - she would eat breakfast and then have urgency to have a bowel movement. The bowel movement would be of pudding consistency. The patient denies blood in stools She denies abdominal pain She notes no colon cancer in the family. She denies previous colonoscopy. She states that her sister had attempted colonoscopies but was never cleaned out enough and related bad experiences. PAST MEDICAL HISTORY Diagnosis Date Adjustment reaction 03/01/2010 Allergic rhinitis 01/05/2014 Allergy-induced asthma 01/05/[address] 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 03/01/2010 Primary osteoarthritis of left knee 11/18/2017 Proteinuria 02/13/2014 Repeat test was neg Right knee pain 02/23/2014 Under workman's comp Synovial cyst of left popliteal space 08/04/2020 Thoracic or lumbosacral neuritis or radiculitis, unspecified 07/04/2014 Varicose veins of both lower extremities 09/08/2019 Lt>Rt Venous insufficiency 10/03/2009 Vitamin D deficiency PAST SURGICAL HISTORY Procedure Laterality Date BX OF BREAST; INCISIONAL Left 07/06/2021 LIGJ DIVJ &/EXCJ VARICOSE VEIN CLUSTER 1 LEG Varicose Vein Surgery PAST SURGICAL HISTORY OF 05/1999 EXCISSION L FOOT LESIONS X2 PAST SURGICAL HISTORY OF 1973 LAPRASCOPY FOR FERTILITY STRESS TEST 08/05/2016 normal UNSPECIFIED ORAL SURGERY PROCEDURE, BY REPORT [place] teeth extracted/ and implant Current Outpatient Medications Medication Sig fluticasone (FLONASE) 50 mcg/actuation nasal spray Use 2 Sprays in each nostril once daily. albuterol HFA (PROVENTIL HFA, VENTOLIN HFA) 90 mcg/actuation inhaler Inhale 2 Puffs as instructed every 4 hours as needed for wheezing/shortness of breath. (Patient not taking: Reported on 07/19/2022) dextromethorphan-guaiFENesin (MUCINEX DM) 30-600 mg per tablet Take 1 tablet by mouth twice daily. (Patient not taking: Reported on 07/19/2022) acetaminophen 650 mg CR tablet Take 650 mg by mouth every 8 hours as needed. (Patient not taking: Reported on 07/19/2022) Cholecalciferol, Vitamin D3, 5,000 unit cap Take 1 capsule by mouth once daily. (Patient not taking: Reported on 07/19/2022) ALLERGIES: Mar [Fexofenadine Hcl] and Singulair [Montelukast] PERSONAL HISTORY: Social History Tobacco Use Smoking status: Never Smokeless tobacco: Never Vaping Use Vaping Use: Never used Substance Use Topics Alcohol use: No Drug use: No FAMILY HISTORY Problem Relation Age of Onset Cancer Mother THROAT AND TONGUE FROM THIS AND ABOVE Arthritis Mother Rheumatoid other (HODGKINS DISEASE) Mother Diabetes Father Type 2 Stroke Father age 92 at time of other (KIDNEY FAILURE) Father FROM THIS Breast Cancer Other maternal first cousin The review of systems data was entered by the nurse and reviewed by me Nursing Notes: Debby Mcadams LPN 07/25/2022 9:01 AM Signed REVIEW OF SYSTEMS: General: The patient notes fatigue, denies weight loss, denies weight gain, denies feeling hot, and denies feelings of cold. Eyes: The patient denies glaucoma, denies eye injury/surgery, does not wear glasses or contacts. Ear/Nose/Throat: The patient notes allergies, notes hayfever, denies ear infections, and denies bloody noses. Cardiovascular: The patient denies chest pain, denies heart disease, denies high blood pressure,denies cardiac stent, denies prior heart attack, denies irregular heart beat, denies high cholesterol, denies poor circulation, denies heart failure, other cardiac issues, denies claudication, denies cold feet, denies peripheral arterial stent. Respiratory: The patient denies tuberculosis, denies pneumonia, denies frequent cough, denies pulmonary embolism, denies shortness of breath, and denies coughing up blood. Gastrointestinal: The patient denies difficulty swallowing, denies acid reflux, denies ulcers, denies vomiting, denies jaundice/hepatitis, denies gallbladder problems, denies black or tarry stools, denies hemorrhoids, denies bleeding from rectum, denies diverticulitis, denies constipation, notes diarrhea, notes loss of stool control, and denies hernias. Kidney/Bladder: The patient denies kidney stones, denies urine infections, and denies bloody urine. Skin: The patient denies a history of skin cancer, denies bleeding/changing moles, and denies a history of skin rash. Neurologic: The patient denies a history of epilepsy/convulsions, denies headaches, denies head/spinal injuries, and denies stroke/TIA. Psychiatric: The patient denies psychiatric medications, denies depression, and denies voices, denies substance abuse. Endocrine: The patient denies thyroid disorders, denies diabetes, and denies hormonal problems. Hematologic: The patient denies a history of bruising, denies bleeding, and denies anemia, denies blood clots. Infections: The patient denies a history of measles and mumps, denies rheumatic fever, and denies sexually transmitted diseases. Musculoskeletal: The patient denies back pain/injury, denies back problems, denies sciatica, notes knee/foot trouble, denies arthritis, or denies gout. When was patient's last Mammogram screening? 2021 Last Colonoscopy: none Debby Mcadams LPN PHYSICAL EXAMINATION: General: The patient is 76 year old female, well nourished, well hydrated in no acute distress. The patient is oriented to time, place, and person. VITALS: Blood pressure 130/82, pulse 75, temperature 36.4 C (97.5 F), height 165.1 cm (5' 5 ), weight 105.2 kg (232 lb), SpO2 100 %. Body mass index is 38.61 kg/m . Head: Normal cephalic, atraumatic Eyes: pupils are equally round, sclera are clear/anicteric Neck is supple with no tracheal deviation Respiratory: Normal respiratory excursion and pattern. Abdominal exam: benign Extremities: no clubbing, cyanosis or edema. Neuro: non focal Psych: normal mood Assessment IMPRESSION: PLAN: I have discussed the above with the patient. I have offered colonoscopy , possible biopsies I have explained the procedure to the patient. I have counseled the patient as to the risks of the procedure, including but not limited to: infection, bleeding, injury to any intrabdominal organs such as liver/spleen, perforation of the GI tract, inability to complete the procedure, complications of anesthesia, etc. - the patient understands. The patient refuses colonoscopy I have explicitly explained that she may have colon cancer (may not have symptoms from this) and without colonoscopy it may go undiagnosed, given that she has never had a previous colonoscopy. The patient again refuses colonoscopy. She did not schedule for any procedure in this patient encounter. I have answered all questions to the patient s satisfaction and the patient has no further questions. The patient does not have diarrhea by definition. With regard to her fecal urgency I have recommended the following: I have recommended 25-30 grams of fiber per day. I have recommended 8-10 glasses of free water per day. Diagnoses: (R19.7) Diarrhea, unspecified type (R19.4) Bowel habit changes I have confirmed and edited as necessary, the PFSH and ROS obtained by others. Consultation requested by Lara Hoffman for an opinion regarding patient's diarrhea and bowel habit changes. My final recommendations will be communicated back to the requesting physician by way of shared Medical record or letter to requesting physician via [place] mail. Return to Clinic: The patient is instructed to follow-up with me as per needed. I spent a total of 27 minutes on the date of the service which included preparing to see the patient with review of any pertinent laboratory studies/radiological imaging/medical records, [id number] patient care, obtaining oral medical history from the patient in this encounter, counseling and educating the patient/family/caregiver, and ordering and/or scheduling of medications/tests/procedures, and completing appropriate medical documentation. Jaqueline Cuellar MD documented in this encounter [facility] 07-25-2022 Nurse Note REVIEW OF SYSTEMS: General: The patient notes fatigue, denies weight loss, denies weight gain, denies feeling hot, and denies feelings of cold. Eyes: The patient denies glaucoma, denies eye injury/surgery, does not wear glasses or contacts. Ear/Nose/Throat: The patient notes allergies, notes hayfever, denies ear infections, and denies bloody noses. Cardiovascular: The patient denies chest pain, denies heart disease, denies high blood pressure,denies cardiac stent, denies prior heart attack, denies irregular heart beat, denies high cholesterol, denies poor circulation, denies heart failure, other cardiac issues, denies claudication, denies cold feet, denies peripheral arterial stent. Respiratory: The patient denies tuberculosis, denies pneumonia, denies frequent cough, denies pulmonary embolism, denies shortness of breath, and denies coughing up blood. Gastrointestinal: The patient denies difficulty swallowing, denies acid reflux, denies ulcers, denies vomiting, denies jaundice/hepatitis, denies gallbladder problems, denies black or tarry stools, denies hemorrhoids, denies bleeding from rectum, denies diverticulitis, denies constipation, notes diarrhea, notes loss of stool control, and denies hernias. Kidney/Bladder: The patient denies kidney stones, denies urine infections, and denies bloody urine. Skin: The patient denies a history of skin cancer, denies bleeding/changing moles, and denies a history of skin rash. Neurologic: The patient denies a history of epilepsy/convulsions, denies headaches, denies head/spinal injuries, and denies stroke/TIA. Psychiatric: The patient denies psychiatric medications, denies depression, and denies voices, denies substance abuse. Endocrine: The patient denies thyroid disorders, denies diabetes, and denies hormonal problems. Hematologic: The patient denies a history of bruising, denies bleeding, and denies anemia, denies blood clots. Infections: The patient denies a history of measles and mumps, denies rheumatic fever, and denies sexually transmitted diseases. Musculoskeletal: The patient denies back pain/injury, denies back problems, denies sciatica, notes knee/foot trouble, denies arthritis, or denies gout. When was patient's last Mammogram screening? 2021 Last Colonoscopy: none Debby Mcadams LPN documented in this encounter [facility] 07-22-2022 Miscellaneous Notes Pt called and notified, verbalized understanding. Vashti Rosas Ma ----- Message from Lara Hoffman PA-C sent at 07/22/2022 8:00 AM EST ----- Stool is negative for bacteria/c.diff infection documented in this encounter [facility] 07-19-2022 History of Presen t illness Narrative Chief Complaint Patient presents with: Diarrhea: X 3 wks, mostly after eating. HPI Elizabeth Mcnally is a 76 year old female who presents here today for Above Complaints.. Patient has noted diarrhea after eating for the past 3 days. Not with all meals. Yesterday she only had 1 episode in the morning. No cramping or pain. Stool is loose, not watery. Significant urge associated with it. She has not been on any trips or out of the country. No recent atb. Did have a viral infection back in May. Patient states I cannot remember the last time I had a normal stool . Past medical history, appointments, medications, allergies reviewed. Previous Medical History PAST MEDICAL HISTORY Diagnosis Date Adjustment reaction 03/01/2010 Allergic rhinitis 01/05/2014 Allergy-induced asthma 01/05/[address] 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 03/01/2010 Primary osteoarthritis of left knee 11/18/2017 Proteinuria 02/13/2014 Repeat test was neg Right knee pain 02/23/2014 Under workman's comp Synovial cyst of left popliteal space 08/04/2020 Thoracic or lumbosacral neuritis or radiculitis, unspecified 07/04/2014 Varicose veins of both lower extremities 09/08/2019 Lt>Rt Venous insufficiency 10/03/2009 Vitamin D deficiency Previous Surgical History PAST SURGICAL HISTORY Procedure Laterality Date BX OF BREAST; INCISIONAL Left 07/06/2021 LIGJ DIVJ &/EXCJ VARICOSE VEIN CLUSTER 1 LEG Varicose Vein Surgery PAST SURGICAL HISTORY OF 05/1999 EXCISSION L FOOT LESIONS X2 PAST SURGICAL HISTORY OF 1973 LAPRASCOPY FOR FERTILITY STRESS TEST 08/05/2016 normal UNSPECIFIED ORAL SURGERY PROCEDURE, BY REPORT [place] teeth extracted/ and implant Family History FAMILY HISTORY Problem Relation Age of Onset Cancer Mother THROAT AND TONGUE FROM THIS AND ABOVE Arthritis Mother Rheumatoid other (HODGKINS DISEASE) Mother Diabetes Father Type 2 Stroke Father age 92 at time of other (KIDNEY FAILURE) Father FROM THIS Breast Cancer Other maternal first cousin Patient Allergies ALLERGIES Allergen Reactions Mar [Fexofenadi* Rash Singulair [[place]el[place]* Rash itching and rash (tried twice) Current Medications Current Outpatient Medications on File Prior to Visit Medication Sig fluticasone (FLONASE) 50 mcg/actuation nasal spray Use 2 Sprays in each nostril once daily. albuterol HFA (PROVENTIL HFA, VENTOLIN HFA) 90 mcg/actuation inhaler Inhale 2 Puffs as instructed every 4 hours as needed for wheezing/shortness of breath. (Patient not taking: Reported on 07/19/2022) dextromethorphan-guaiFENesin (MUCINEX DM) 30-600 mg per tablet Take 1 tablet by mouth twice daily. (Patient not taking: Reported on 07/19/2022) acetaminophen 650 mg CR tablet Take 650 mg by mouth every 8 hours as needed. (Patient not taking: Reported on 07/19/2022) Cholecalciferol, Vitamin D3, 5,000 unit cap Take 1 capsule by mouth once daily. (Patient not taking: Reported on 07/19/2022) No current facility-administered medications on file prior to visit. Social History Social History Tobacco Use Smoking status: Never Smokeless tobacco: Never Vaping Use Vaping Use: Never used Substance Use Topics Alcohol use: No Drug use: No Review of Symptoms REVIEW OF SYSTEMS See hpi EXAM: BP 120/80 (BP Site: Left Arm, BP Position: Sitting, BP Cuff Size: Large Adult) Pulse 84 Resp 16 Wt 106.1 kg (234 lb) SpO2 93% BMI 40.17 kg/m General Appearance: Well appearing, alert, in no acute distress, well-hydrated, well nourished.. Lungs: Lungs clear to auscultation. No wheezing, rhonchi, rales.. Heart: RRR without murmur, gallop, or rubs. No ectopy. Abdomen: Normal abdominal exam, Abdomen soft, non-tender. Bowel sounds normal. No masses, organomegaly. Health Maintenance List COVID-19 VACCINE(5 - Booster for Moderna series) due on 02/28/2022 ADVANCE DIRECTIVE DISCUSSION due on 06/30/2022 DEPRESSION ASSESSMENT due on 06/30/2022 SHINGRIX VACCINE(3 of 3) due on 07/24/2022 DTAP,TDAP,TD(3 - Td or Tdap) due on 03/29/2023 SERUM CREATININE due on 03/08/2023 HEMOGLOBIN/HEMATOCRIT due on 03/08/2023 ANNUAL PCP TEAM CHRONIC DISEASE VISIT due on 06/11/2023 MAMMOGRAM due on 06/12/2023 DIABETES SCREEN due on 03/08/2025 LIPID SCREEN due on 03/08/2027 BONE DENSITY Completed HEPATITIS C SCREENING Completed SPIROMETRY Discontinued INFLUENZA Discontinued COLORECTAL CANCER SCREENING Discontinued PNEUMOCOCCAL: 65+ Discontinued Data reviewed ASSESSMENT/PLAN: 1. Diarrhea, unspecified type - ICD9: 787.91, ICD10: R19.7 (primary diagnosis) Check labs and stool culture. Set up for possible scope as patient has never had colonoscopy - ENTERIC BACTERIAL PANEL BY PCR - C. DIFFICILE PCR - CBC + DIFF - COMP METABOLIC PANEL - URINALYSIS, WITH MICROSCOPIC - CONSULT TO GENERAL SURGERY 2. Bowel habit changes - ICD9: 787.99, ICD10: R19.4 As above. - CONSULT TO GENERAL SURGERY Lara Hoffman PA-C documented in this encounter [facility] 06-13-2022 Miscellaneous Notes Phoned patient and given provider's message below with verbalized understanding. Let patient know mammogram was ok. documented in this encounter [facility] 06-12-2022 History of Presen t illness Narrative Radiology Service Progress Note PATIENT NAME: Elizabeth Mcnally DATE OF SERVICE: June 12, 2022 TIME: 10:00 AM PATIENT IDENTITY VERIFICATION COMPLETED USING TWO (2) IDENTIFIERS: Name and Date of confirmed by patient verbally. FALL SCREENING: Has the patient had 2 falls in the last year or 1 fall with injury or currently using an Ambulatory Assistive Device (Walker, Cane, Wheelchair, Crutches, etc.)? No PATIENT GENDER DATA: Female. status: : No status: NO. PATIENT RELEVANT IMPLANT DATA REVIEWED: Not Applicable RADIOLOGY DEPARTMENT: Mammography PERIPHERAL IV DATA: Not applicable SIGNED BY: RT Petrona(R) June 12, 2022 10:00 AM documented in this encounter [facility] 06-11-2022 Instructions Lorie Norton APRN.CNP - 06/11/2022 9:22 AM EST Continue use of acetaminophen Start mucinex DM Start Albuterol inhaler as needed Stay well hydrated and get plenty of rest documented in this encounter [facility] 06-11-2022 History of Presen t illness Narrative Chief Complaint Patient presents with: Cough HPI Elizabeth Mcnally is a 76 year old female who presents here today for Above Complaints.. Patient reports that approximately 1 week ago she had the stomach flu. Patient reports that a couple days after that she began coughing and has continued coughing. Patient states that she can feel sputum coming up when she coughs but not enough to where she can spit it out. Reports shortness of breath with exertion, sputum production. Denies chest pain, fevers/chill, nasal congestion, rhinorrhea, chest congestion. Past medical history, appointments, medications, allergies reviewed. Previous Medical History PAST MEDICAL HISTORY Diagnosis Date Adjustment reaction 03/01/2010 Allergic rhinitis 01/05/2014 Allergy-induced asthma 01/05/[address] 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 03/01/2010 Primary osteoarthritis of left knee 11/18/2017 Proteinuria 02/13/2014 Repeat test was neg Right knee pain 02/23/2014 Under workman's comp Synovial cyst of left popliteal space 08/04/2020 Thoracic or lumbosacral neuritis or radiculitis, unspecified 07/04/2014 Varicose veins of both lower extremities 09/08/2019 Lt>Rt Venous insufficiency 10/03/2009 Vitamin D deficiency Previous Surgical History PAST SURGICAL HISTORY Procedure Laterality Date BX OF BREAST; INCISIONAL Left 07/06/2021 LIGJ DIVJ &/EXCJ VARICOSE VEIN CLUSTER 1 LEG Varicose Vein Surgery PAST SURGICAL HISTORY OF 05/1999 EXCISSION L FOOT LESIONS X2 PAST SURGICAL HISTORY OF 1973 LAPRASCOPY FOR FERTILITY STRESS TEST 08/05/2016 normal UNSPECIFIED ORAL SURGERY PROCEDURE, BY REPORT [place] teeth extracted/ and implant Family History FAMILY HISTORY Problem Relation Age of Onset Cancer Mother THROAT AND TONGUE FROM THIS AND ABOVE Arthritis Mother Rheumatoid other (HODGKINS DISEASE) Mother Diabetes Father Type 2 Stroke Father age 92 at time of other (KIDNEY FAILURE) Father FROM THIS Breast Cancer Other maternal first cousin Patient Allergies ALLERGIES Allergen Reactions Mar [Fexofenadi* Rash Singulair [[place]* Rash itching and rash (tried twice) Current Medications Current Outpatient Medications on File Prior to Visit Medication Sig predniSONE (DELTASONE) 20 mg tablet 1 tabs a day by mouth for the next 5 days (Patient not taking: Reported on 03/29/2022) acetaminophen 650 mg CR tablet Take 650 mg by mouth every 8 hours as needed. fluticasone (FLONASE) 50 mcg/actuation nasal spray Use 2 Sprays in each nostril once daily. Cholecalciferol, Vitamin D3, 5,000 unit cap Take 1 capsule by mouth once daily. No current facility-administered medications on file prior to visit. Social History Social History Tobacco Use Smoking status: Never Smokeless tobacco: Never Vaping Use Vaping Use: Never used Substance Use Topics Alcohol use: No Drug use: No Review of Symptoms REVIEW OF SYSTEMS SEE HPI EXAM: BP 132/78 Pulse 89 Temp 37 C (98.6 F) Resp 18 Wt 105.7 kg (233 lb) SpO2 92% BMI 39.99 kg/m General Appearance: Well appearing, alert, in no acute distress, well-hydrated, well nourished.. Nose/Sinuses: Nares normal, septum midline, mucosa normal, no drainage or sinus tenderness. Oropharynx: Lips, mucosa, and tongue normal, teeth and gums normal, oropharynx normal. Neck: Supple, no adenopathy; thyroid symmetric, normal size, no bruits. Lungs: Lungs clear to auscultation. No wheezing, rhonchi, rales.. Heart: RRR without murmur, gallop, or rubs. No ectopy. Health Maintenance List COVID-19 VACCINE(5 - Booster for Moderna series) due on 02/28/2022 MAMMOGRAM due on 05/09/2022 DTAP,TDAP,TD(3 - Td or Tdap) due on 03/29/2023 SHINGRIX VACCINE(3 of 3) due on 07/24/2022 SERUM CREATININE due on 03/08/2023 HEMOGLOBIN/HEMATOCRIT due on 03/08/2023 ANNUAL PCP TEAM CHRONIC DISEASE VISIT due on 03/29/2023 DIABETES SCREEN due on 03/08/2025 LIPID SCREEN due on 03/08/2027 BONE DENSITY Completed ADVANCE DIRECTIVE DISCUSSION Completed DEPRESSION ASSESSMENT Completed HEPATITIS C SCREENING Completed SPIROMETRY Discontinued INFLUENZA Discontinued COLORECTAL CANCER SCREENING Discontinued PNEUMOCOCCAL: 65+ Discontinued ASSESSMENT/PLAN: 1. Viral upper respiratory tract infection - ICD9: 465.9, ICD10: J06.9 (primary diagnosis) - Discussed viral etiology and rationale for treatment. - Symptomatic treatment with prn analgesia - Supportive care with fluids and rest - The patient may also use OTC decongestants prn and warm salt water gargles, throat lozenges and/or OTC throat spray as needed. - Follow up in 3-5 days if symptoms persist or sooner if worsening of symptoms -Continue use of acetaminophen. 2. Allergy-induced asthma, mild intermittent, uncomplicated - ICD9: 493.00, ICD10: J45.20 Mild intermittent Asthma acute excacerbation no respiratory distress - Continue current meds - Albuterol MDI 2 puffs with spacer prn - Avoidance of triggers recommended Lorie Norton APRN.CNP documented in this encounter [facility] 06-10-2022 Miscellaneous Notes Patient is scheduled for office visit with Lorie Norton on 06/11/22. She is requesting to be contacted if there are any same day cancellations for today 06/10/22 as she [place] under [place] the facility. Advise patient she will need to be seen and evaluated to determine best course of Tx. If openings in the office with a provider is ok or the [facility]. Patient is experiencing reoccurring cough. She is requesting a prescription for prednisone to be sent to her pharmacy. Please contact the patient to advise on plan of care. Patient has been identified by name and date of : Yes Patient phones for refill(s): Requested Prescriptions Pending Prescriptions Disp Refills predniSONE (DELTASONE) 20 mg tablet 5 tablet 0 Si tabs a day by mouth for the next 5 days Date of last office visit in primary care: 03/29/22 Last 2 Encounter Wt Readings: Date: Wt: 03/29/2022 111.1 kg (245 lb) 03/14/2022 112.9 kg (249 lb) Previous labs/tests for medication: Not applicable Please advise. Thank you. Pam Zhang documented in this encounter [facility] 04-25-2022 History of Presen t illness Narrative Manual Readin/85 Pulse: 70 BP Steven average: 126/81 P: 69 Repeat BP Check: 133/85 P71 #1 128/81 P67 #2 127/83 P67 #3 122/79 P70 #4 122/79 P68 #5 123/79 P68 #6 Reason for blood pressure check - Last BP elevated Patient is: Taking medication as prescribed Yes Took medication today Yes If no, date medication last taken N/A Experiencing side effects No BP was elevated at last appt 03/29/22. No BP medication changes were made at that time. Denies any chest pain, shortness of breath, dizziness, or headaches. No caffeine use. No personal history of tobacco use; no current exposure. Alert and oriented. Pt has been identified by name and birthdate: Yes Allergies reviewed: Yes Latex allergy: no. Medication - prescribed and OTC reviewed and updated: Yes Do you need any prescription refills prior to your next visit: No Health Maintenance: Reviewed and not up to date and provider notified Patient advised to continue with current medications and would be contacted if any further instructions after review by PCP. Ayala Darnell LPN documented in this encounter [facility] 03-29-2022 History of Presen t illness Narrative Chief Complaint Patient presents with: F/U 6 months HPI Elizabeth Mcnally is a 76 year old female who presents here today for 6 month follow up. Patient with hx of impaired fasting blood sugar, hyperlipidemia, allergy induced asthma, Vit D Def, CKD, leg edema, venous insufficiency, obesity as well as those reviewed and addressed below and in ROS. Was seen in middle of Feb with bronchitis and placed on z-pack. She is better but still having the cough with light yellow mucus. No longer having the increased shortness of breath like she was. Just restarted her Vit D. Past medical history, appointments, medications, allergies reviewed. Previous Medical History PAST MEDICAL HISTORY Diagnosis Date Adjustment reaction 03/01/2010 Allergic rhinitis 01/05/2014 Allergy-induced asthma 01/05/[address] 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 03/01/2010 Primary osteoarthritis of left knee 11/18/2017 Proteinuria 02/13/2014 Repeat test was neg Right knee pain 02/23/2014 Under workman's comp Synovial cyst of left popliteal space 08/04/2020 Thoracic or lumbosacral neuritis or radiculitis, unspecified 07/04/2014 Varicose veins of both lower extremities 09/08/2019 Lt>Rt Venous insufficiency 10/03/2009 Vitamin D deficiency Previous Surgical History PAST SURGICAL HISTORY Procedure Laterality Date BX OF BREAST; INCISIONAL Left 07/06/2021 LIGJ DIVJ &/EXCJ VARICOSE VEIN CLUSTER 1 LEG Varicose Vein Surgery PAST SURGICAL HISTORY OF 05/1999 EXCISSION L FOOT LESIONS X2 PAST SURGICAL HISTORY OF 1973 LAPRASCOPY FOR FERTILITY STRESS TEST 08/05/2016 normal UNSPECIFIED ORAL SURGERY PROCEDURE, BY REPORT [place] teeth extracted/ and implant Family History FAMILY HISTORY Problem Relation Age of Onset Cancer Mother THROAT AND TONGUE FROM THIS AND ABOVE Arthritis Mother Rheumatoid other (HODGKINS DISEASE) Mother Diabetes Father Type 2 Stroke Father age 92 at time of other (KIDNEY FAILURE) Father FROM THIS Breast Cancer Other maternal first cousin Patient Allergies ALLERGIES Allergen Reactions Mar [Fexofenadi* Rash Singulair [[place]* Rash itching and rash (tried twice) Current Medications Current Outpatient Medications on File Prior to Visit Medication Sig predniSONE (DELTASONE) 20 mg tablet 1 tabs a day by mouth for the next 5 days acetaminophen 650 mg CR tablet Take 650 mg by mouth every 8 hours as needed. fluticasone (FLONASE) 50 mcg/actuation nasal spray Use 2 Sprays in each nostril once daily. Cholecalciferol, Vitamin D3, 5,000 unit cap Take 1 capsule by mouth once daily. No current facility-administered medications on file prior to visit. Social History Social History Tobacco Use Smoking status: Never Smokeless tobacco: Never Vaping Use Vaping Use: Never used Substance Use Topics Alcohol use: No Drug use: No Review of Symptoms REVIEW OF SYSTEMS GENERAL: No unintentional weight loss, malaise or fevers NECK: Negative for lumps, goiter, pain and significant neck swelling RESPIRATORY: See HPI CARDIOVASCULAR: Negative for chest pain, increased leg swelling, hypertension, CHF or palpitations. : No history of dysuria, blood ENDOCRINE: Negative for cold or heat intolerance, polyuria, polydipsia and goiter NEURO: No history of headaches, syncope, paralysis, seizures or tremors EXAM: BP 134/92 (BP Site: Right Arm, BP Position: Sitting, BP Cuff Size: Large Adult) Pulse 72 Resp 16 Wt 111.1 kg (245 lb) BMI 42.05 kg/m BP 138/90 Pulse 72 Resp 16 Wt 111.1 kg (245 lb) BMI 42.05 kg/m Last 3 Encounter Wt Readings: Date: Wt: 03/29/2022 111.1 kg (245 lb) 03/14/2022 112.9 kg (249 lb) 03/13/2022 109.3 kg (241 lb) Last 6 Encounter BP Readings: Date: BP: 03/29/2022 138/90 03/14/2022 124/70 03/13/2022 132/88 09/10/2021 118/80 08/30/2021 112/70 07/13/2021 122/78 General Appearance: Well appearing, alert, in no acute distress, well-hydrated, well nourished.. Neck: Supple, no adenopathy; thyroid symmetric, normal size, no bruits. Lungs: Lungs clear to auscultation. No wheezing, rhonchi, rales.. Heart: RRR without murmur, gallop, or rubs. No ectopy. Abdomen: Normal abdominal exam, Abdomen soft, non-tender. Bowel sounds normal. No masses, organomegaly. Extremities: No deformities, Good capillary refill. Chronic venous stasis color changes and 1+ pitting edema bilaterally. Peripheral Pulses: Normal. Health Maintenance List DTAP,TDAP,TD(3 - Td or Tdap) due on 10/04/2019 DEPRESSION ASSESSMENT Never done COVID-19 VACCINE(5 - Booster for Moderna series) due on 02/28/2022 SHINGRIX VACCINE(2 of 3) due on 02/28/2022 MAMMOGRAM due on 05/09/2022 SERUM CREATININE due on 03/08/2023 HEMOGLOBIN/HEMATOCRIT due on 03/08/2023 ANNUAL PCP TEAM CHRONIC DISEASE VISIT due on 03/13/2023 DIABETES SCREEN due on 03/08/2025 LIPID SCREEN due on 03/08/2027 BONE DENSITY Completed ADVANCE DIRECTIVE DISCUSSION Completed HEPATITIS C SCREENING Completed SPIROMETRY Discontinued INFLUENZA Discontinued COLORECTAL CANCER SCREENING Discontinued PNEUMOCOCCAL: 65+ Discontinued Data reviewed Component Latest Ref Rng & Units 09/05/2021 03/08/2022 WBC 3.70 - 11.00 k/uL 7.28 6.76 RBC 3.90 - 5.20 m/uL 5.24 (H) 5.11 Hemoglobin 11.5 - 15.5 g/dL 14.6 14.5 Hematocrit 36.0 - 46.0 % 47.2 (H) 45.4 MCV 80.0 - 100.0 fL 90.1 88.8 MCH 26.0 - 34.0 pg 27.9 28.4 MCHC 30.5 - 36.0 g/dL 30.9 31.9 RDW-CV 11.5 - 15.0 % 13.2 12.8 Platelet Count 150 - 400 k/uL 271 219 MPV 9.0 - 12.7 fL 10.3 10.4 Neut% % 55.4 52.9 Abs Neut (ANC) 1.45 - 7.50 k/uL 4.03 3.57 Lymph% % 31.7 32.8 Abs Lymph 1.00 - 4.00 k/uL 2.31 2.22 Ware% % 8.4 8.4 Abs Ware <0.87 k/uL 0.61 0.57 Eosin% % 3.8 4.9 Abs Eosin <0.46 k/uL 0.28 0.33 Baso% % 0.4 0.6 Abs Baso <0.11 k/uL 0.03 0.04 Immature Gran % % 0.3 0.4 IMMATURE GRANS (ABS) <0.10 k/uL <0.03 0.03 NRBC /100 WBC 0.0 0.0 Absolute nRBC <0.01 k/uL <0.01 <0.01 DTYPE Auto Auto Color Yellow Yellow Yellow Clarity Clear Slightly Cloudy (A) Slightly Cloudy (A) Glucose, Urine Negative Negative Negative Bilirubin, Urine Negative Negative Negative Ketones, Urine Negative Negative Negative Specific [place], Ur 1.005 - 1.030 1.016 1.018 Hemoglobin/Blood,Ur Negative Negative Negative pH, Urine 5.0 - 8.0 5.0 5.0 Protein, Urine Negative Negative Negative Urobilinogen Negative Negative Negative Nitrites Negative Negative Negative Leukest Negative Negative 1+ (A) WBC, Urine 0-5 /HPF 0-5 /HPF 6-10 /HPF (A) RBC, Urine 0-3 /HPF 0-3 /HPF 0-3 /HPF Bacteria None Seen /HPF Few (A) Epithelial Cells /HPF Few Few Hyaline Cast 0 /LPF 4-10 /LPF (A) Protein, Total 6.3 - 8.0 g/dL 7.2 6.9 Albumin 3.9 - 4.9 g/dL 4.2 3.9 Calcium 8.5 - 10.2 mg/dL 8.9 8.9 Bilirubin, Total 0.2 - 1.3 mg/dL 0.4 0.4 Alkaline Phosphatase 34 - 123 U/L 70 72 AST 13 - 35 U/L 19 19 ALT 7 - 38 U/L 16 13 Glucose 74 - 99 mg/dL 102 (H) 105 (H) BUN 7 - 21 mg/dL 15 17 Creatinine 0.58 - 0.96 mg/dL 1.16 (H) 1.10 (H) Sodium 136 - 144 mmol/L 141 141 Potassium 3.7 - 5.1 mmol/L 4.5 4.7 Chloride 97 - 105 mmol/L 105 107 (H) CO2 22 - 30 mmol/L 29 26 Anion Gap 9 - 18 mmol/L 7 (L) 8 (L) eGFR >=60 mL/min/1.73m 50 (L) 53 (L) Total Cholesterol, Nonfasting <200 mg/dL 246 (H) 219 (H) Triglycerides, Nonfasting <150 mg/dL 202 (H) 125 HDL Cholesterol, Nonfasting >39 mg/dL 50 51 LDL Cholesterol, Nonfasting <100 mg/dL 156 (H) 143 (H) Non HDL Cholesterol, Nonfasting <130 mg/dL 196 (H) 168 (H) VLDL Cholesterol, Nonfasting <30 mg/dL 40 (H) 25 Total Chol/HDL Ratio, Nonfasting <5.10 mg/dL 4.92 4.29 LDL/HDL Ratio, Nonfasting <2.54 mg/dL 3.12 (H) 2.80 (H) Hemoglobin A1C 4.3 - 5.6 % 6.0 (H) 6.1 (H) Estimated Average Glucose mg/dL 126 128 Vitamin D 25 Hydroxy 31.0 - 80.0 ng/mL 34.9 27.4 (L) A/P ASSESSMENT/PLAN: 1. Mixed hyperlipidemia - ICD9: 272.2, ICD10: E78.2 (primary diagnosis) - suboptimal control and - improved control - Encouraged following a low fat, low cholesterol diet. - Discussed the benefits of regular aerobic exercise and weight loss. - Encouraged following a low carbohydrate, healthy oil intake diet. 2. Impaired fasting glucose - ICD9: 790.21, ICD10: R73.01 - slightly increase A1c. Discussed improvement in diet. 3. Stage 3 chronic kidney disease, unspecified whether stage 3a or 3b CKD ([facility]) - ICD9: 585.3, ICD10: N18.30 - improved. No changes. 4. Bilateral leg edema - ICD9: 782.3, ICD10: R60.0 - discussed wearing her support socks and decreasing her salt intake. 5. Extrinsic asthma, unspecified asthma severity, unspecified whether complicated, unspecified whether persistent - ICD9: 493.00, ICD10: J45.909 Mild intermittent Asthma stable - Avoidance of triggers recommended 6. Vitamin D deficiency - ICD9: 268.9, ICD10: E55.9 - cont replacement which she just restarted. 7. Venous insufficiency - ICD9: 459.81, ICD10: I87.2 - as per #4 8. Obesity, Class III, BMI 40-49.9 (morbid obesity) ([facility]) - ICD9: 278.01, ICD10: E66.01 Weight decreasing - Behavioral intervention 9. Bronchitis - ICD9: 490, ICD10: J40 - will place on Doxy 100 mg twice a day for 10 days. Requested Prescriptions Signed Prescriptions Disp Refills doxycycline (VIBRA-TABS) 100 mg tablet 20 tablet 0 Sig: Take 1 tablet by mouth twice daily for 10 days. F/u 6 months extensive check CMP, Lipid, UA, A1c, Vit D Frank Salinas MD documented in this encounter [facility] 03-14-2022 Miscellaneous Notes Pt notified via [employer]. If questions to contact the office. Vashti Rosas Ma Negative for covid documented in this encounter [facility] 03-14-2022 Note HNO ID: [id number] Author: Kaylee Prince MD Service: ? Author Type: Physician Type: Progress Notes Filed: 03/14/2022 9:59 AM Note Text: Elizabeth Mcnally is a 76 year old female presents for evaluation of chronic venous insufficiency and leg swelling. She wears OTC compression stockings. She is doing well. Her legs appear to only have mild swelling at this point, which she attruibutes to the fact that she was sick over labor day with a GI bug and where she didn't leave the bathroom and her swelling went down significantly. We discussed typical causes of leg swelling as well as VV, their history and typical course and treatments. She does have some mild VV, from which she is asymptomatic. She does still wear her compression most of the time, but they are hard to get on. She is fairly active, gets out, and walks and goes to the sorto. She states she did have vein stripping in the past. There are no wounds or skin changes. She inquired if she needs to continue to be seen twice a year as she has many drs appts and I will just have her come back prn as she seems to be managing well on her own. HISTORIES: PAST MEDICAL HISTORY Diagnosis Date Adjustment reaction 03/01/2010 Allergic rhinitis 01/05/2014 Allergy-induced asthma 01/05/[address] 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 03/01/2010 Primary osteoarthritis of left knee 11/18/2017 Proteinuria 02/13/2014 Repeat test was neg Right knee pain 02/23/2014 Under workman's comp Synovial cyst of left popliteal space 08/04/2020 Thoracic or lumbosacral neuritis or radiculitis, unspecified 07/04/2014 Varicose veins of both lower extremities 09/08/2019 Lt>Rt Venous insufficiency 10/03/2009 Vitamin D deficiency PAST SURGICAL HISTORY Procedure Laterality Date BX OF BREAST; INCISIONAL Left 07/06/2021 LIGJ DIVJ AND/EXCJ VARICOSE VEIN CLUSTER 1 LEG Varicose Vein Surgery PAST SURGICAL HISTORY OF 05/1999 EXCISSION L FOOT LESIONS X2 PAST SURGICAL HISTORY OF 1973 LAPRASCOPY FOR FERTILITY STRESS TEST 08/05/2016 normal UNSPECIFIED ORAL SURGERY PROCEDURE, BY REPORT [place] teeth extracted/ and implant Social History Tobacco Use Smoking status: Never Smokeless tobacco: Never Vaping Use Vaping Use: Never used Substance Use Topics Alcohol use: No Drug use: No MEDICATIONS: Current Outpatient Medications Medication Sig azithromycin (ZITHROMAX Z-JENNIFER) 250 mg tablet Take 2 tablets day one, then, 1 tablet daily until gone. predniSONE (DELTASONE) 20 mg tablet 1 tabs a day by mouth for the next 5 days acetaminophen 650 mg CR tablet Take 650 mg by mouth every 8 hours as needed. fluticasone (FLONASE) 50 mcg/actuation nasal spray Use 2 Sprays in each nostril once daily. Cholecalciferol, Vitamin D3, 5,000 unit cap Take 1 capsule by mouth once daily. No current facility-administered medications for this visit. ALLERGIES: ALLERGIES Allergen Reactions Mar [Fexofenadi* Rash Singulair [[place]* Rash itching and rash (tried twice) REVIEW OF SYSTEMS: All other ROS: negative PHYSICAL EXAM: General appearance: Normal, healthy, well nourished, alert and cooperative individual, in no acute distress. Skin: No lesions, rashes or ulcerations; normal color and turgor. Pulmonary: No wheezing or rhonchi. Breathing unlabored on RA Lower Extremities: Feet and toes warm Negative Ulcers trace bilateral ankles edema Normal sensation to touch spider veins mild BLE, especially feet varicose veins mild BLE Neuro: Awake, alert, and oriented., CN II-XII grossly intact. , walks with cane Palpable DP pulses bilaterally IMPRESSION: BLE asymptomatic VV, spider veins, leg swelling PLAN: Continue to stay active Compression stockings Elevate prn F/u prn Kaylee Prince MD I spent 30 minutes in the visit, with more than 50% of the total [id number] time of the visit in counseling / coordination of care. [facility] 03-14-2022 History of Presen t illness Narrative Elizabeth Mcnally is a 76 year old female presents for evaluation of chronic venous insufficiency and leg swelling. She wears OTC compression stockings. She is doing well. Her legs appear to only have mild swelling at this point, which she attruibutes to the fact that she was sick over labor day with a GI bug and where she didn't leave the bathroom and her swelling went down significantly. We discussed typical causes of leg swelling as well as VV, their history and typical course and treatments. She does have some mild VV, from which she is asymptomatic. She does still wear her compression most of the time, but they are hard to get on. She is fairly active, gets out, and walks and goes to the sorto. She states she did have vein stripping in the past. There are no wounds or skin changes. She inquired if she needs to continue to be seen twice a year as she has many drs appts and I will just have her come back prn as she seems to be managing well on her own. HISTORIES: PAST MEDICAL HISTORY Diagnosis Date Adjustment reaction 03/01/2010 Allergic rhinitis 01/05/2014 Allergy-induced asthma 01/05/[address] 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 03/01/2010 Primary osteoarthritis of left knee 11/18/2017 Proteinuria 02/13/2014 Repeat test was neg Right knee pain 02/23/2014 Under workman's comp Synovial cyst of left popliteal space 08/04/2020 Thoracic or lumbosacral neuritis or radiculitis, unspecified 07/04/2014 Varicose veins of both lower extremities 09/08/2019 Lt>Rt Venous insufficiency 10/03/2009 Vitamin D deficiency PAST SURGICAL HISTORY Procedure Laterality Date BX OF BREAST; INCISIONAL Left 07/06/2021 LIGJ DIVJ &/EXCJ VARICOSE VEIN CLUSTER 1 LEG Varicose Vein Surgery PAST SURGICAL HISTORY OF 05/1999 EXCISSION L FOOT LESIONS X2 PAST SURGICAL HISTORY OF 1973 LAPRASCOPY FOR FERTILITY STRESS TEST 08/05/2016 normal UNSPECIFIED ORAL SURGERY PROCEDURE, BY REPORT [place] teeth extracted/ and implant Social History Tobacco Use Smoking status: Never Smokeless tobacco: Never Vaping Use Vaping Use: Never used Substance Use Topics Alcohol use: No Drug use: No MEDICATIONS: Current Outpatient Medications Medication Sig azithromycin (ZITHROMAX Z-JENNIFER) 250 mg tablet Take 2 tablets day one, then, 1 tablet daily until gone. predniSONE (DELTASONE) 20 mg tablet 1 tabs a day by mouth for the next 5 days acetaminophen 650 mg CR tablet Take 650 mg by mouth every 8 hours as needed. fluticasone (FLONASE) 50 mcg/actuation nasal spray Use 2 Sprays in each nostril once daily. Cholecalciferol, Vitamin D3, 5,000 unit cap Take 1 capsule by mouth once daily. No current facility-administered medications for this visit. ALLERGIES: ALLERGIES Allergen Reactions Mar [Fexofenadi* Rash Singulair [[place]* Rash itching and rash (tried twice) REVIEW OF SYSTEMS: All other ROS: negative PHYSICAL EXAM: General appearance: Normal, healthy, well nourished, alert and cooperative individual, in no acute distress. Skin: No lesions, rashes or ulcerations; normal color and turgor. Pulmonary: No wheezing or rhonchi. Breathing unlabored on RA Lower Extremities: Feet and toes warm Negative Ulcers trace bilateral ankles edema Normal sensation to touch spider veins mild BLE, especially feet varicose veins mild BLE Neuro: Awake, alert, and oriented., CN II-XII grossly intact. , walks with cane Palpable DP pulses bilaterally IMPRESSION: BLE asymptomatic VV, spider veins, leg swelling PLAN: Continue to stay active Compression stockings Elevate prn F/u prn Kaylee Prince MD I spent 30 minutes in the visit, with more than 50% of the total [id number] time of the visit in counseling / coordination of care. documented in this encounter [facility] 03-14-2022 Miscellaneous Notes Patient notified and verbalized understanding Yesica Glaser Cma Let patient know both hips show moderate arthritic changes. documented in this encounter [facility] 03-13-2022 History of Presen t illness Narrative Chief Complaint Patient presents with: Cough Recheck HPI Elizabeth Mcnally is a 76 year old female who presents here today for 6 month follow up Patient has Hx of hyperlipidemia, CKD and c/o of a cough for the past 10-12 days. Initially started with rhinorrhea. Slight congestion. No fevers or chills, headaches. No body aches or increased shortness of breath from base line. Slight wheeze. No nausea, vomiting or diarrhea. No loss of taste or smell. Is vaccinated to COVID with 2 boosters. Left leg seems weak. With going up steps has to step up with the right and then the left. Going down hill she has a problem but can not explain it any more then that is does not work. She will be seeing the vascular provider tomorrow. Past medical history, appointments, medications, allergies reviewed. Previous Medical History PAST MEDICAL HISTORY Diagnosis Date Adjustment reaction 03/01/2010 Allergic rhinitis 01/05/2014 Allergy-induced asthma 01/05/[address] 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 03/01/2010 Primary osteoarthritis of left knee 11/18/2017 Proteinuria 02/13/2014 Repeat test was neg Right knee pain 02/23/2014 Under workman's comp Synovial cyst of left popliteal space 08/04/2020 Thoracic or lumbosacral neuritis or radiculitis, unspecified 07/04/2014 Varicose veins of both lower extremities 09/08/2019 Lt>Rt Venous insufficiency 10/03/2009 Vitamin D deficiency Previous Surgical History PAST SURGICAL HISTORY Procedure Laterality Date BX OF BREAST; INCISIONAL Left 07/06/2021 LIGJ DIVJ &/EXCJ VARICOSE VEIN CLUSTER 1 LEG Varicose Vein Surgery PAST SURGICAL HISTORY OF 05/1999 EXCISSION L FOOT LESIONS X2 PAST SURGICAL HISTORY OF 1973 LAPRASCOPY FOR FERTILITY STRESS TEST 08/05/2016 normal UNSPECIFIED ORAL SURGERY PROCEDURE, BY REPORT [place] teeth extracted/ and implant Family History FAMILY HISTORY Problem Relation Age of Onset Cancer Mother THROAT AND TONGUE FROM THIS AND ABOVE Arthritis Mother Rheumatoid other (HODGKINS DISEASE) Mother Diabetes Father Type 2 Stroke Father age 92 at time of other (KIDNEY FAILURE) Father FROM THIS Breast Cancer Other maternal first cousin Patient Allergies ALLERGIES Allergen Reactions Mar [Fexofenadi* Rash Singulair [[place]* Rash itching and rash (tried twice) Current Medications Current Outpatient Medications on File Prior to Visit Medication Sig acetaminophen (TYLENOL 8 HOUR) 650 mg CR tablet Take 650 mg by mouth every 8 hours as needed. fluticasone (FLONASE) 50 mcg/actuation nasal spray Use 2 Sprays in each nostril once daily. Cholecalciferol, Vitamin D3, 5,000 unit cap Take 1 capsule by mouth once daily. No current facility-administered medications on file prior to visit. Social History Social History Tobacco Use Smoking status: Never Smokeless tobacco: Never Vaping Use Vaping Use: Never used Substance Use Topics Alcohol use: No Drug use: No Review of Symptoms REVIEW OF SYSTEMS See HPI EXAM: BP 132/88 (BP Site: Left Arm, BP Position: Sitting, BP Cuff Size: Large Adult) Pulse 64 Temp 36 C (96.8 F) (Right Tympanic) Resp 16 Wt 109.3 kg (241 lb) BMI 42.17 kg/m General Appearance: Well appearing, alert, in no acute distress, well-hydrated, well nourished.. Eyes: Anicteric sclera. Pupils are equally round. Extraocular movements are intact. . Ears: External ears, TM's normal, canals clear. Nose/Sinuses: Positive findings: mucosa swollen, pale, and boggy, clear rhinorrhea, no sinus tenderness.. Oropharynx: Lips, mucosa, and tongue normal, teeth and gums normal, oropharynx normal. Neck: Supple, no adenopathy; thyroid symmetric, normal size, no bruits. Lungs: Lungs clear to auscultation. No wheezing, rhonchi, rales.. Heart: RRR without murmur, gallop, or rubs. No ectopy. Musc: left lower extremity: normal ROM in the hip and left knee with no grinding or pain. Vascular: normal posterior tibial pulses on both sides. Health Maintenance List SHINGRIX VACCINE(1 of 2) Never done DEPRESSION SCREENING due on 10/11/2021 MAMMOGRAM due on 05/09/2022 DTAP,TDAP,TD(3 - Td or Tdap) due on 03/14/2022 ANNUAL PCP TEAM CHRONIC DISEASE VISIT due on 09/10/2022 SERUM CREATININE due on 03/08/2023 HEMOGLOBIN/HEMATOCRIT due on 03/08/2023 DIABETES SCREEN due on 03/08/2025 LIPID SCREEN due on 03/08/2027 BONE DENSITY Completed ADVANCE DIRECTIVE DISCUSSION Completed HEPATITIS C SCREENING Completed COVID-19 VACCINE Completed SPIROMETRY Discontinued INFLUENZA Discontinued COLORECTAL CANCER SCREENING Discontinued PNEUMOCOCCAL: 65+ Discontinued Data reviewed A/P ASSESSMENT/PLAN: 1. Bronchitis - ICD9: 490, ICD10: J40 (primary diagnosis) - place on a z-jennifer and prednisone 20 mg a day for 5 days. 2. Suspected COVID-19 virus infection - ICD9: V01.79, ICD10: Z20.822 Check - COVID WITH FLUA+B, ROUTINE 3. Encounter for screening mammogram for breast cancer - ICD9: V76.12, ICD10: Z12.31 Check - [facility] SCREENING 4. Increased weakness when ambulating - ICD9: 780.79, ICD10: R53.1 Check - XR HIP GENERAL 3V PELV/AP/LAT LEFT F/u routine in 2-4 weeks Frank Salinas MD documented in this encounter [facility] 08-30-2021 Note HNO ID: [id number] Author: Schuyler Hoyt MD Service: ? Author Type: Physician Type: Progress Notes Filed: 08/30/2021 9:45 AM Note Text: This patient is seen back today in assessment evaluation of her chronic venous insufficiency. She has been relatively compliant with her dklh-tis-zopnnsy stocking therapy and wears them the majority of the time. She does state that they are hard to get on and get off however she has been utilizing them with good regularity. She states that she got very sick a few months back with severe diarrhea and lost quite a bit of volume at that time. She says since that time the legs have been much less swollen and she is no longer taking any type of diuretic. The legs look great today they are softer they have less discoloration they have much less swelling. Overall I think she is being very compliant with therapy and she states that she would like to know during the summer months she can occasionally not wear her stockings and I state that that is fine but that anytime she starts to notice an increase in swelling she should get back into her stockings immediately and wear them consistently for a period of time. All in all this patient is quite stable however I am retiring and I would like her to establish with Dr. Prince sometime next fall. I tell her to follow-up in about 6 months and we will have Dr. Prince see her here in the [place] office. This note was generated with [employer] dictation software. It may contain incorrect words, spelling, and punctuation and that were not noted in review of the chart prior to signing. I spent 15 minutes in the visit, with more than 50% of the total [id number] time of the visit in counseling / coordination of care. [facility] 07-12-2021 Note HNO ID: [id number] Author: Schuyler Hoyt MD Service: ? Author Type: Physician Type: Progress Notes Filed: 07/12/2021 9:52 AM Note Text: Elizabeth Mcnally is a 75 year old female here for bilateral leg swelling HPI: Is a very pleasant active 75-year-old patient who presents with a history of bilateral leg swelling. This has been going on in a worsening fashion over the last year or so they have tried a course of diuretic therapy which failed to control the leg swelling. She does have a history of bilateral varicose vein removal and stripping in the past and basically at this point in time has no other voiced complaints about significant pain sores or ulcerations although she does state that it is very difficult for her to get shoes or get shoes on because of the swelling in her feet. MEDICATIONS: Current Outpatient Medications Medication Sig Dispense Refill - bumetanide (BUMEX ORAL) Take 4 mg by mouth once daily. - acetaminophen (TYLENOL 8 HOUR) 650 mg CR tablet Take 650 mg by mouth every 8 hours as needed. - fluticasone (FLONASE) 50 mcg/actuation nasal spray Use 2 Sprays in each nostril once daily. 1 Each 11 - Cholecalciferol, Vitamin D3, 5,000 unit cap Take 1 capsule by mouth once daily. - bumetanide (BUMEX) 1 mg tablet Take 1 tablet by mouth once daily. Along with 2 mg tab for 3 mg a day (Patient not taking: Reported on 07/03/2021 ) 90 tablet 1 - bumetanide (BUMEX) 2 mg tablet Take 1 tablet by mouth once daily. (Patient not taking: Reported on 07/03/2021 ) 90 tablet 1 - cyanocobalamin, vitamin B-12, (VITAMIN B-12 ORAL) Take by mouth. (Patient not taking: Reported on 07/03/2021 ) - cetirizine (ZYRTEC) 10 mg tablet Take 1 tablet by mouth once daily. (Patient not taking: Reported on 07/03/2021 ) 60 tablet 0 - aspirin, enteric coated (ASPIRIN, ENTERIC COATED) 81 mg EC tablet Take 81 mg by mouth once daily. (Patient not taking: Reported on 07/03/2021 ) No current facility-administered medications for this visit. ALLERGIES Allergen Reactions - Mar [Fexofenadi* Rash - Singulair [[place]* Rash itching and rash (tried twice) BP 122/70 Pulse 78 Resp 18 Ht 5' 5 (1.65m) Wt 240 lb (108.9kg) BMI 39.94 kg/(m2). PHYSICAL EXAM: Well-developed well-nourished female alert and oriented person place and time no acute distress time examination. BMI is 39. Bilaterally there are easily palpable dorsal pedal pulses and capillary refill is normal. There is cyanotic discoloration of some portions of the feet and the skin of the ankles mostly related to small telangiectasias in clumps under the skin. There is definitely brawny induration. There are no sores or ulcers. She definitely has thickening of the skin and swelling of the lower portion of the leg from the distal calf through the foot. ASSESSMENT: This patient has chronic venous insufficiency and currently is not in any type of compression for this. PLAN: We discussed a fourfold plan including potentially some weight loss continue with normal activities. We discussed leg elevation to help decrease the swelling at the end of the day. We discussed a good moisturizing lotion to keep the skin moist and keep it from drying out cracking and potentially leading to sores or ulcers. The primary important therapy that we discussed is compression therapy. Were going to start with turc-htd-dnjrbip compression and see how she tolerates this. This patient seems very motivated to maintain her activity levels and at this point in time I think she will try to be as compliant as possible with compression. With that being the case I discussed with her the fact that we are going to see her back in about 2 months to see if she thinks we could move her up into prescription stockings and to see if she has been having any success with the therapy. While disappointed the patient seems satisfied with our plan and at this point in time is motivated to try to proceed with therapy as we have described to her. FOLLOW UP: Follow-up in the [place] office in August Schuyler Hoyt MD [facility] documented as of this encounter (statuses as of 03/14/2022) [facility] History of Past illness Narrative* Problem Noted Date Resolved Date Lupus 01/05/2014 10/13/2020 Overview: Seeing Rheum Routine gynecological examination 01/02/2010 04/20/2012 Routine general medical exam ination at a health care facility 10/03/2009 04/20/2012 Overview: 01/02/2010, from Dr. Medley 01/31/2011, yearly check documented as of this encounter (statuses as of 03/14/2022) [place] [id number] History of Past illness Narrative* Problem Noted Date Resolved Date Lupus 01/05/2014 10/13/2020 Overview: Seeing Rheum Routine gynecological examination 01/02/2010 04/20/2012 Routine general medical exam ination at a health care facility 10/03/2009 04/20/2012 Overview: 01/02/2010, from Dr. Medley 01/31/2011, yearly check documented as of this encounter (statuses as of 03/14/2022) [facility] History of Past illness Narrative* Problem Noted Date Resolved Date Lupus 01/05/2014 10/13/2020 Overview: Seeing Rheum Routine gynecological examination 01/02/2010 04/20/2012 Routine general medical exam ination at a health care facility 10/03/2009 04/20/2012 Overview: 01/02/2010, from Dr. Medley 01/31/2011, yearly check documented as of this encounter (statuses as of 03/14/2022) [facility] History of Past illness Narrative* Problem Noted Date Resolved Date Lupus 01/05/2014 10/13/2020 Overview: Seeing Rheum Routine gynecological examination 01/02/2010 04/20/2012 Routine general medical exam ination at a health care facility 10/03/2009 04/20/2012 Overview: 01/02/2010, from Dr. Medley 01/31/2011, yearly check documented as of this encounter (statuses as of 04/01/2022) [facility] History of Past illness Narrative* Problem Noted Date Resolved Date Lupus 01/05/2014 10/13/2020 Overview: Seeing Rheum Routine gynecological examination 01/02/2010 04/20/2012 Routine general medical exam ination at a health care facility 10/03/2009 04/20/2012 Overview: 01/02/2010, from Dr. Medley 01/31/2011, yearly check documented as of this encounter (statuses as of 04/25/2022) [facility] History of Past illness Narrative* Problem Noted Date Resolved Date Lupus 01/05/2014 10/13/2020 Overview: Seeing Rheum Routine gynecological examination 01/02/2010 04/20/2012 Routine general medical exam ination at a health care facility 10/03/2009 04/20/2012 Overview: 01/02/2010, from Dr. Medley 01/31/2011, yearly check documented as of this encounter (statuses as of 06/10/2022) [facility] History of Past illness Narrative* Problem Noted Date Resolved Date Lupus 01/05/2014 10/13/2020 Overview: Seeing Rheum Routine gynecological examination 01/02/2010 04/20/2012 Routine general medical exam ination at a health care facility 10/03/2009 04/20/2012 Overview: 01/02/2010, from Dr. Medley 01/31/2011, yearly check documented as of this encounter (statuses as of 06/11/2022) [facility] History of Past illness Narrative* Problem Noted Date Resolved Date Lupus 01/05/2014 10/13/2020 Overview: Seeing Rheum Routine gynecological examination 01/02/2010 04/20/2012 Routine general medical exam ination at a health care facility 10/03/2009 04/20/2012 Overview: 01/02/2010, from Dr. Medley 01/31/2011, yearly check documented as of this encounter (statuses as of 06/13/2022) [facility] History of Past illness Narrative* Problem Noted Date Resolved Date Lupus 01/05/2014 10/13/2020 Overview: Seeing Rheum Routine gynecological examination 01/02/2010 04/20/2012 Routine general medical exam ination at a health care facility 10/03/2009 04/20/2012 Overview: 01/02/2010, from Dr. Medley 01/31/2011, yearly check documented as of this encounter (statuses as of 07/19/2022) [facility] History of Past illness Narrative* Problem Noted Date Resolved Date Lupus 01/05/2014 10/13/2020 Overview: Seeing Rheum Routine gynecological examination 01/02/2010 04/20/2012 Routine general medical exam ination at a health care facility 10/03/2009 04/20/2012 Overview: 01/02/2010, from Dr. Medley 01/31/2011, yearly check documented as of this encounter (statuses as of 07/22/2022) [facility] History of Past illness Narrative* Problem Noted Date Resolved Date Lupus 01/05/2014 10/13/2020 Overview: Seeing Rheum Routine gynecological examination 01/02/2010 04/20/2012 [facility] 10/03/2009 04/20/2012 Overview: 01/02/2010, from Dr. Medley 01/31/2011, yearly check documented as of this encounter (statuses as of 07/26/2022) [facility] History of Past illness Narrative* Problem Noted Date Resolved Date Lupus 01/05/2014 10/13/2020 Overview: Seeing Rheum Routine gynecological examination 01/02/2010 04/20/2012 Routine general medical exam ination at a health care facility 10/03/2009 04/20/2012 Overview: 01/02/2010, from Dr. Medley 01/31/2011, yearly check documented as of this encounter (statuses as of 08/02/2022) [facility] History of Past illness Narrative* Problem Noted Date Resolved Date Lupus 01/05/2014 10/13/2020 Overview: Seeing Rheum Routine gynecological examination 01/02/2010 04/20/2012 Routine general medical exam ination at a health care facility 10/03/2009 04/20/2012 Overview: 01/02/2010, from Dr. Medley 01/31/2011, yearly check documented as of this encounter (statuses as of 10/17/2022) [facility] History of Past illness Narrative* Problem Noted Date Resolved Date Lupus 01/05/2014 10/13/2020 Overview: Seeing Rheum Routine gynecological examination 01/02/2010 04/20/2012 Routine general medical exam ination at a health care facility 10/03/2009 04/20/2012 Overview: 01/02/2010, from Dr. Medley 01/31/2011, yearly check documented as of this encounter (statuses as of 10/29/2022) [facility] History of Past illness Narrative* Problem Noted Date Resolved Date Lupus 01/05/2014 10/13/2020 Overview: Seeing Rheum Routine gynecological examination 01/02/2010 04/20/2012 Routine general medical exam ination at a health care facility 10/03/2009 04/20/2012 Overview: 01/02/2010, from Dr. Medley 01/31/2011, yearly check documented as of this encounter (statuses as of 11/12/2022) [facility] History of Past illness Narrative* Problem Noted Date Resolved Date Lupus 01/05/2014 10/13/2020 Overview: Seeing Rheum Routine gynecological examination 01/02/2010 04/20/2012 Routine general medical exam ination at a health care facility 10/03/2009 04/20/2012 Overview: 01/02/2010, from Dr. Medley 01/31/2011, yearly check documented as of this encounter (statuses as of 11/12/2022) [facility] History of Past illness Narrative* Problem Noted Date Resolved Date Lupus 01/05/2014 10/13/2020 Overview: Seeing Rheum Routine gynecological examination 01/02/2010 04/20/2012 Routine general medical exam ination at a health care facility 10/03/2009 04/20/2012 Overview: 01/02/2010, from Dr. Medley 01/31/2011, yearly check documented as of this encounter (statuses as of 12/19/2022) [facility] History of Past illness Narrative* Problem Noted Date Resolved Date Lupus 01/05/2014 10/13/2020 Overview: Seeing Rheum Routine gynecological examination 01/02/2010 04/20/2012 Routine general medical exam ination at a health care facility 10/03/2009 04/20/2012 Overview: 01/02/2010, from Dr. Medley 01/31/2011, yearly check documented as of this encounter (statuses as of 12/24/2022) [facility] History of Past illness Narrative* Problem Noted Date Resolved Date Lupus 01/05/2014 10/13/2020 Overview: Seeing Rheum Routine gynecological examination 01/02/2010 04/20/2012 Routine general medical exam ination at a health care facility 10/03/2009 04/20/2012 Overview: 01/02/2010, from Dr. Medley 01/31/2011, yearly check documented as of this encounter (statuses as of 12/26/2022) [facility] History of Past illness Narrative* Problem Noted Date Diagnosed Date Resolved Date Lupus 01/05/2014 10/13/2020 Overview: Seeing Rheum Routine gynecological examination 01/02/2010 04/20/2012 Routine general medical exam ination at a health care facility 10/03/2009 04/20/2012 Overview: 01/02/2010, from Dr. Medley 01/31/2011, yearly check documented as of this encounter (statuses as of 01/22/2023) [facility] History of Past illness Narrative* Problem Noted Date Diagnosed Date Resolved Date Lupus 01/05/2014 10/13/2020 Overview: Seeing Rheum Routine gynecological examination 01/02/2010 04/20/2012 Routine general medical exam ination at a health care facility 10/03/2009 04/20/2012 Overview: 01/02/2010, from Dr. Medley 01/31/2011, yearly check documented as of this encounter (statuses as of 02/12/2023) [facility] History of Past illness Narrative* Problem Noted Date Diagnosed Date Resolved Date Lupus 01/05/2014 10/13/2020 Overview: Seeing Rheum Routine gynecological examination 01/02/2010 04/20/2012 Routine general medical exam ination at a health care facility 10/03/2009 04/20/2012 Overview: 01/02/2010, from Dr. Medley 01/31/2011, yearly check documented as of this encounter (statuses as of 02/18/2023) [facility] History of Past illness Narrative* Problem Noted Date Diagnosed Date Resolved Date Lupus 01/05/2014 10/13/2020 Overview: Seeing Rheum Routine gynecological examination 01/02/2010 04/20/2012 Routine general medical exam ination at a health care facility 10/03/2009 04/20/2012 Overview: 01/02/2010, from Dr. Medley 01/31/2011, yearly check documented as of this encounter (statuses as of 02/19/2023) [facility] History of Past illness Narrative* Problem Noted Date Diagnosed Date Resolved Date Lupus 01/05/2014 10/13/2020 Overview: Seeing Rheum Routine gynecological examination 01/02/2010 04/20/2012 Routine general medical exam ination at a health care facility 10/03/2009 04/20/2012 Overview: 01/02/2010, from Dr. Medley 01/31/2011, yearly check documented as of this encounter (statuses as of 03/07/2023) [place] [id number] History of Past illness Narrative* Problem Noted Date Diagnosed Date Resolved Date Lupus 01/05/2014 10/13/2020 Overview: Seeing Rheum Routine gynecological examination 01/02/2010 04/20/2012 Routine general medical exam ination at a health care facility 10/03/2009 04/20/2012 Overview: 01/02/2010, from Dr. Medley 01/31/2011, yearly check documented as of this encounter (statuses as of 03/08/2023) [facility] History of Past illness Narrative* Problem Noted Date Diagnosed Date Resolved Date Lupus 01/05/2014 10/13/2020 Overview: Seeing Rheum Routine gynecological examination 01/02/2010 04/20/2012 Routine general medical exam ination at a health care facility 10/03/2009 04/20/2012 Overview: 01/02/2010, from Dr. Medley 01/31/2011, yearly check documented as of this encounter (statuses as of 03/10/2023) [facility] History of Past illness Narrative* Problem Noted Date Diagnosed Date Resolved Date Lupus 01/05/2014 10/13/2020 Overview: Seeing Rheum Routine gynecological examination 01/02/2010 04/20/2012 Routine general medical exam ination at a health care facility 10/03/2009 04/20/2012 Overview: 01/02/2010, from Dr. Medley 01/31/2011, yearly check documented as of this encounter (statuses as of 03/18/2023) [facility] History of Past illness Narrative* Problem Noted Date Diagnosed Date Resolved Date Lupus 01/05/2014 10/13/2020 Overview: Seeing Rheum Routine gynecological examination 01/02/2010 04/20/2012 Routine general medical exam ination at a health care facility 10/03/2009 04/20/2012 Overview: 01/02/2010, from Dr. Medley 01/31/2011, yearly check documented as of this encounter (statuses as of 04/09/2023) [facility] History of Past illness Narrative* Problem Noted Date Diagnosed Date Resolved Date Lupus 01/05/2014 10/13/2020 Overview: Seeing Rheum Routine gynecological examination 01/02/2010 04/20/2012 Routine general medical exam ination at a health care facility 10/03/2009 04/20/2012 Overview: 01/02/2010, from Dr. Medley 01/31/2011, yearly check documented as of this encounter (statuses as of 04/10/2023) [facility] History of Past illness Narrative* Problem Noted Date Diagnosed Date Resolved Date Lupus 01/05/2014 10/13/2020 Overview: Seeing Rheum Routine gynecological examination 01/02/2010 04/20/2012 Routine general medical exam ination at a health care facility 10/03/2009 04/20/2012 Overview: 01/02/2010, from Dr. Medley 01/31/2011, yearly check documented as of this encounter (statuses as of 04/15/2023) [facility] History of Past illness Narrative* Problem Noted Date Diagnosed Date Resolved Date Lupus 01/05/2014 10/13/2020 Overview: Seeing Rheum Routine gynecological examination 01/02/2010 04/20/2012 Routine general medical exam ination at a health care facility 10/03/2009 04/20/2012 Overview: 01/02/2010, from Dr. Medley 01/31/2011, yearly check documented as of this encounter (statuses as of 04/16/2023) [facility] History of Past illness Narrative* Problem Noted Date Diagnosed Date Resolved Date Lupus 01/05/2014 10/13/2020 Overview: Seeing Rheum Routine gynecological examination 01/02/2010 04/20/2012 Routine general medical exam ination at a health care facility 10/03/2009 04/20/2012 Overview: 01/02/2010, from Dr. Medley 01/31/2011, yearly check documented as of this encounter (statuses as of 04/29/2023) [facility] History of Past illness Narrative* Problem Noted Date Diagnosed Date Resolved Date Lupus 01/05/2014 10/13/2020 Overview: Seeing Rheum Routine gynecological examination 01/02/2010 04/20/2012 Routine general medical exam ination at a health care facility 10/03/2009 04/20/2012 Overview: 01/02/2010, from Dr. Medley 01/31/2011, yearly check documented as of this encounter (statuses as of 04/29/2023) [facility] History of Past illness Narrative* Problem Noted Date Diagnosed Date Resolved Date Lupus 01/05/2014 10/13/2020 Overview: Seeing Rheum Routine gynecological examination 01/02/2010 04/20/2012 [facility] 10/03/2009 04/20/2012 Overview: 01/02/2010, from Dr. Medley 01/31/2011, yearly check documented as of this encounter (statuses as of 05/04/2023) [facility] History of Past illness Narrative* Problem Noted Date Diagnosed Date Resolved Date Lupus 01/05/2014 10/13/2020 Overview: Seeing Rheum Routine gynecological examination 01/02/2010 04/20/2012 Routine general medical exam ination at a health care facility 10/03/2009 04/20/2012 Overview: 01/02/2010, from Dr. Medley 01/31/2011, yearly check documented as of this encounter (statuses as of 05/04/2023) [facility] History of Past illness Narrative* Problem Noted Date Diagnosed Date Resolved Date Lupus 01/05/2014 10/13/2020 Overview: Seeing Rheum Routine gynecological examination 01/02/2010 04/20/2012 Routine general medical exam ination at a health care facility 10/03/2009 04/20/2012 Overview: 01/02/2010, from Dr. Medley 01/31/2011, yearly check documented as of this encounter (statuses as of 05/21/2023) [facility] History of Past illness Narrative* Problem Noted Date Diagnosed Date Resolved Date Lupus 01/05/2014 10/13/2020 Overview: Seeing Rheum Routine gynecological examination 01/02/2010 04/20/2012 Routine general medical exam ination at a health care facility 10/03/2009 04/20/2012 Overview: 01/02/2010, from Dr. Medley 01/31/2011, yearly check documented as of this encounter (statuses as of 05/21/2023) [facility] History of Past illness Narrative* Problem Noted Date Diagnosed Date Resolved Date Lupus 01/05/2014 10/13/2020 Overview: Seeing Rheum Routine gynecological examination 01/02/2010 04/20/2012 Routine general medical exam ination at a health care facility 10/03/2009 04/20/2012 Overview: 01/02/2010, from Dr. Medley 01/31/2011, yearly check documented as of this encounter (statuses as of 05/23/2023) [facility] History of Past illness Narrative* Problem Noted Date Diagnosed Date Resolved Date Lupus 01/05/2014 10/13/2020 Overview: Seeing Rheum Routine gynecological examination 01/02/2010 04/20/2012 Routine general medical exam ination at a health care facility 10/03/2009 04/20/2012 Overview: 01/02/2010, from Dr. Medley 01/31/2011, yearly check documented as of this encounter (statuses as of 05/30/2023) [facility] of Past illness Narrative* Problem Noted Date Diagnosed Date Resolved Date Lupus 01/05/2014 10/13/2020 Overview: Seeing Rheum Routine gynecological examination 01/02/2010 04/20/2012 Routine general medical exam ination at a health care facility 10/03/2009 04/20/2012 Overview: 01/02/2010, from Dr. Medley 01/31/2011, yearly check documented as of this encounter (statuses as of 06/02/2023) [facility] of Past illness Narrative* Problem Noted Date Diagnosed Date Resolved Date Lupus 01/05/2014 10/13/2020 Overview: Seeing Rheum Routine gynecological examination 01/02/2010 04/20/2012 Routine general medical exam ination at a health care facility 10/03/2009 04/20/2012 Overview: 01/02/2010, from Dr. Medley 01/31/2011, yearly check documented as of this encounter (statuses as of 06/05/2023) [facility] History of Past illness Narrative* Problem Noted Date Diagnosed Date Resolved Date Lupus 01/05/2014 10/13/2020 Overview: Seeing Rheum Routine gynecological examination 01/02/2010 04/20/2012 Routine general medical exam ination at a health care facility 10/03/2009 04/20/2012 Overview: 01/02/2010, from Dr. Medley 01/31/2011, yearly check documented as of this encounter (statuses as of 06/06/2023) [facility] History of Past illness Narrative* Problem Noted Date Diagnosed Date Resolved Date Lupus 01/05/2014 10/13/2020 Overview: Seeing Rheum Routine gynecological examination 01/02/2010 04/20/2012 Routine general medical exam ination at a health care facility 10/03/2009 04/20/2012 Overview: 01/02/2010, from Dr. Medley 01/31/2011, yearly check documented as of this encounter (statuses as of 06/20/2023) [facility] History of Past illness Narrative* Problem Noted Date Diagnosed Date Resolved Date Lupus 01/05/2014 10/13/2020 Overview: Seeing Rheum Routine gynecological examination 01/02/2010 04/20/2012 Routine general medical exam ination at a health care facility 10/03/2009 04/20/2012 Overview: 01/02/2010, from Dr. Medley 01/31/2011, yearly check documented as of this encounter (statuses as of 08/13/2023) [facility] History of Past illness Narrative* Problem Noted Date Diagnosed Date Resolved Date Lupus 01/05/2014 10/13/2020 Overview: Seeing Rheum Routine gynecological examination 01/02/2010 04/20/2012 Routine general medical exam ination at a health care facility 10/03/2009 04/20/2012 Overview: 01/02/2010, from Dr. Medley 01/31/2011, yearly check documented as of this encounter (statuses as of 08/13/2023) [facility] History of Past illness Narrative* Problem Noted Date Diagnosed Date Resolved Date Lupus 01/05/2014 10/13/2020 Overview: Seeing Rheum Routine gynecological examination 01/02/2010 04/20/2012 Routine general medical exam ination at a health care facility 10/03/2009 04/20/2012 Overview: 01/02/2010, from Dr. Medley 01/31/2011, yearly check documented as of this encounter (statuses as of 08/15/2023) [facility] History of Past illness Narrative* Problem Noted Date Diagnosed Date Resolved Date Lupus 01/05/2014 10/13/2020 Overview: Seeing Rheum Routine gynecological examination 01/02/2010 04/20/2012 Routine general medical exam ination at a health care facility 10/03/2009 04/20/2012 Overview: 01/02/2010, from Dr. Medley 01/31/2011, yearly check documented as of this encounter (statuses as of 08/15/2023) [facility] History of Past illness Narrative* Problem Noted Date Diagnosed Date Resolved Date Lupus 01/05/2014 10/13/2020 Overview: Seeing Rheum Routine gynecological examination 01/02/2010 04/20/2012 Routine general medical exam ination at a health care facility 10/03/2009 04/20/2012 Overview: 01/02/2010, from Dr. Medley 01/31/2011, yearly check documented as of this encounter (statuses as of 08/20/2023) [facility] History of Past illness Narrative* Problem Noted Date Diagnosed Date Resolved Date Lupus 01/05/2014 10/13/2020 Overview: Seeing Rheum Routine gynecological examination 01/02/2010 04/20/2012 Routine general medical exam ination at a health care facility 10/03/2009 04/20/2012 Overview: 01/02/2010, from Dr. Medley 01/31/2011, yearly check documented as of this encounter (statuses as of 08/21/2023) [facility] History of Past illness Narrative* Problem Noted Date Diagnosed Date Resolved Date Lupus 01/05/2014 10/13/2020 Overview: Seeing Rheum Routine gynecological examination 01/02/2010 04/20/2012 Routine general medical exam ination at a health care facility 10/03/2009 04/20/2012 Overview: 01/02/2010, from Dr. Medley 01/31/2011, yearly check documented as of this encounter (statuses as of 09/02/2023) [facility] History of Past illness Narrative* Problem Noted Date Diagnosed Date Resolved Date Lupus 01/05/2014 10/13/2020 Overview: Seeing Rheum Routine gynecological examination 01/02/2010 04/20/2012 Routine general medical exam ination at a health care facility 10/03/2009 04/20/2012 Overview: 01/02/2010, from Dr. Medley 01/31/2011, yearly check documented as of this encounter (statuses as of 09/03/2023) [facility] Diagnosis Arthritis of both hips [facility] Diagnosis Venous insufficiency- Primary Unspecified venous (peripheral) insufficiency Spider veins of limb Other and unspecified capillary diseases Swelling of lower extremity [facility] Diagnosis Bronchitis- Primary Bronchitis, not specified as acute or chronic Suspected COVID-19 virus infection Encounter for screening mammogram for breast cancer Increased weakness when ambulating Other malaise and fatigue [facility] Diagnosis Mixed hyperlipidemia- Primary Impaired fasting glucose Stage 3 chronic kidney disease, unspecified whether stage 3a or 3b CKD (HCC) Bilateral leg edema Edema Extrinsic asthma, unspecified asthma severity, unspecified whether complicated, unspecified whether persistent Vitamin D deficiency Unspecified vitamin D deficiency Venous insufficiency Unspecified venous (peripheral) insufficiency Obesity, Class III, BMI 40-49.9 (morbid obesity) (HCC) Morbid obesity Bronchitis Bronchitis, not specified as acute or chronic [facility] Diagnosis Elevated blood pressure reading without diagnosis of hypertension- Primary [facility] Diagnosis Viral upper respiratory tract infection- Primary Acute upper respiratory infections of unspecified site Allergy-induced asthma, mild intermittent, uncomplicated [facility] Diagnosis Diarrhea, unspecified type- Primary Bowel habit changes Other symptoms involving digestive system [facility] Diagnosis Diarrhea, unspecified type Bowel habit changes Other symptoms involving digestive system [facility] Diagnosis Fecal urgency- Primary Bowel habit changes Other symptoms involving digestive system [facility] Diagnosis Encounter for screening mammogram for malignant neoplasm of breast- Primary Other screening mammogram [facility] Diagnosis Tinea cruris- Primary Dermatophytosis of groin and perianal area [facility] Diagnosis Hospital discharge follow-up- Primary Other follow-up examination Cellulitis of skin Cellulitis and abscess of unspecified site CEASAR (acute kidney injury) (HCC) Acute kidney failure, unspecified Elevated BP without diagnosis of hypertension [facility] Diagnosis Cellulitis of skin- Primary Cellulitis and abscess of unspecified site Leg swelling Swelling of limb Mixed hyperlipidemia Remote history of stroke Transient ischemic attack (TIA), and cerebral infarction without residual deficits C. difficile colitis Intestinal infection due to clostridium difficile [facility] Diagnosis CEASAR (acute kidney injury) (HCC)- Primary Acute kidney failure, unspecified Elevated BP without diagnosis of hypertension Cellulitis of skin Cellulitis and abscess of unspecified site Leg swelling Swelling of limb [facility]* Diagnosis C. difficile colitis- Primary Intestinal infection due to clostridium difficile Left leg cellulitis Cellulitis and abscess of leg, except foot Left leg swelling Swelling of [facility] Mixed hyperlipidemia- Primary Impaired fasting glucose Bilateral leg edema Edema Extrinsic asthma, unspecified asthma severity, unspecified whether complicated, unspecified whether persistent Adjustment disorder, unspecified type Stage 3a chronic kidney disease (HCC) Obesity, Class II, BMI 35-39.9 Obesity, unspecified Vitamin D deficiency Unspecified vitamin D deficiency Varicose veins of bilateral lower extremities with other complications Unintentional weight loss Loss of weight Need for vaccination Need for prophylactic vaccination and inoculation against unspecified single disease Medication management Encounter for long-term (current) use of other medications Encounter for immunization Need for other specified prophylactic vaccination against single bacterial disease [facility]* Diagnosis Cerebral microvasculopathy- Primary Cerebrovascular disease, unspecified Elevated blood pressure reading without diagnosis of hypertension Hyperlipidemia, unspecified hyperlipidemia type Elevated hemoglobin A1c Other abnormal blood chemistry Breathing-related sleep disorder Other sleep disturbances Lacunar infarction (HCC) Unspecified cerebral artery occlusion with cerebral infarction [facility] Diagnosis Unintentional weight change- Primary [facility] Diagnosis Lung nodules Other nonspecific abnormal finding of lung field [facility]* Diagnosis Cellulitis of skin- Primary Cellulitis and abscess of unspecified site [facility]* Diagnosis Unintentional weight loss Loss of weight [facility] Diagnosis Unintentional weight change [facility]* Diagnosis Encounter for screening mammogram for breast cancer [facility]* Diagnosis Weight loss, unintentional Loss of weight documented in this encounter [facility]* Diagnosis Uterine mass- Primary Other specified symptom associated with female genital organs documented in this encounter [facility]* Diagnosis Uterine mass Other specified symptom associated with female genital organs documented in this encounter [facility] note* Diagnosis Endometrial hyperplasia- Primary Endometrial hyperplasia, unspecified documented in this encounter [facility] note* Diagnosis Encounter for screening mammogram for malignant neoplasm of breast Other screening mammogram documented in this encounter [facility] note* Diagnosis Pre-op exam- Primary Preoperative examination, unspecified Abnormal EKG Nonspecific abnormal electrocardiogram (ECG) (EKG) documented in this encounter [facility] note* Diagnosis Thickened endometrium- Primary Nonspecific (abnormal) findings on radiological and other examination of genitourinary organs Obesity, Class III, BMI 40-49.9 (morbid obesity) (HCC) Morbid obesity documented in this encounter [facility] note* Diagnosis Pre-op examination- Primary Preoperative examination, unspecified Thickened endometrium Nonspecific (abnormal) findings on radiological and other examination of genitourinary organs Stage 3a chronic kidney disease (HCC) documented in this encounter [facility] note* Diagnosis Thickened endometrium- Primary Nonspecific (abnormal) findings on radiological and other examination of genitourinary organs Pre-op exam Preoperative examination, unspecified Obesity, Class III, BMI 40-49.9 (morbid obesity) (HCC) Morbid obesity documented in this encounter [facility] for referral (narrative)* Diagnostic Procedure Only (Routine) - Closed Specialty Diagnoses / Procedures Referred By Noe ruiz Referred To Contact XR IMAGING Diagnoses Increased weakness when ambulating Procedures XR HIP GENERAL 3V PELV/AP/LAT LEFT RADEX HIP UNILATERAL WITH PELVIS 2-3 VIEWS Frank Salinas MD [address] [place] [address] Xr Imaging Referral ID Status Reason Start Date Expiration Date V isits Requested Visits Authorized [id number] Closed Auto-Generate d Referral 03/13/2022 04/12/2023 1 1 * Diagnostic Procedure Only (Routine) - Authorized Specialty Diagnoses / Procedures Referred By Noe t Referred To Contact BR IMAGING Diagnoses Encounter for screening mammogram for breast cancer Procedures BERHANE SCREENING SCREENING MAMMOGRAPHY BI 2-VIEW BREAST INC CAD Frank Salinas MD [address] [place] [address] [facility] [address] [place] [address] Referral ID Status Reason Start Date Expiration Date Visits Requested Visits Authorized [id number] Authorized Auto-Generat ed Referral 03/13/2022 04/12/2023 1 1 [facility] for referral (narrative)* Diagnostic Procedure Only (Routine) - Authorized Specialty Diagnoses / Procedures Referred By Noe ruiz Referred To Contact BR IMAGING Diagnoses Encounter for screening mammogram for malignant neoplasm of breast Procedures BERHNAE SCREENING SCREENING MAMMOGRAPHY BI 2-VIEW BREAST INC CAD Frank Salinas MD [address] [place] [address] [facility] [address] [place] [address] Referral ID Status Reason Start Date Expiration Date Visits Requested Visits Authorized [id number] Authorized Auto-Generat ed Referral 10/16/2022 11/15/2023 1 1 [facility] for referral (narrative)* Outpatient Procedure (Urgent) - Closed Specialty Diagnoses / Procedures Referred By Noe Referred To [facility] Diagnoses Left leg swelling Procedures US LEG VEIN DVT UNL VAS LAB DUP-SCAN XTR VEINS UNILATERAL/LIMITED STUDY Frank Salinas MD [address] [place] [address] [facility] [place] [address] [place] [id number] Referral ID Status Reason Start Date Expiration Date V isits Requested Visits Authorized [id number] Closed Auto-Generate d Referral 03/06/2023 03/05/2024 1 1 [facility] for referral (narrative)* Diagnostic Procedure Only (Routine) - Authorized Specialty Diagnoses / Procedures Referred By Contac t Referred To Contact US IMAGING Diagnoses Unintentional weight loss Procedures US ABDOMEN COMPLETE US ABDOMINAL REAL TIME W/IMAGE DOCUMENTATION Frank Salinas MD [address] [place] [address] [place] [address] Referral ID Status Reason Start Date Expiration Date Visits Requested Visits Authorized [id number] Authorized Auto-Generat ed Referral 05/08/2024 1 1 [facility] for referral (narrative)* Diagnostic Procedure Only (Routine) - Closed Specialty Diagnoses / Procedures Referred By Noe t Referred To Contact US IMAGING Diagnoses Unintentional weight loss Procedures US ABDOMEN COMPLETE US ABDOMINAL REAL TIME W/IMAGE DOCUMENTATION Frank Salnias MD [facility] [place] [address] Us Imaging [facility] Referral ID Status Reason Start Date Expiration Date V isits Requested Visits Authorized [id number] Closed Auto-Generate d Referral 04/09/2023 05/08/[address] [facility] for referral (narrative)* Diagnostic Procedure Only (Routine) - Closed Specialty Diagnoses / Procedures Referred By Bonnieac t Referred To Contact BR IMAGING Diagnoses Encounter for screening mammogram for breast cancer Procedures BERHANE SCREENING SCREENING MAMMOGRAPHY BI 2-VIEW BREAST INC CAD Frank Salinas MD [address] [place] [address] [facility] [address] [place] [address] Referral ID Status Reason Start Date Expiration Date V isits Requested Visits Authorized [id number] Closed Auto-Generate d Referral 03/13/2022 04/12/2023 1 1 [facility] for referral (narrative)* Diagnostic Procedure Only (Routine) - Authorized Specialty Diagnoses / Procedures Referred By Contac t Referred To Contact US IMAGING Diagnoses Uterine mass Procedures US FEMALE PELVIS TRANSVAG US TRANSVAGINAL Frank Salinas MD [address] [place] [address] [place] [address] Referral ID Status Reason Start Date Expiration Date Visits Requested Visits Authorized [id number] Authorized Auto-Generat ed Referral 3 06/21/2024 1 1 [facility] for referral (narrative)* Outpatient Procedure (Routine) - Pending Review Specialty Diagnoses / Procedures Referred By Contac t Referred To [facility] Diagnoses Pre-op examination Procedures ECG COMPLETE ECG ROUTINE ECG W/LEAST 12 LDS W/I&R Lara Hoffman PA-C [address] [place] [address] [facility] [place] [address] [place] [address] Referral ID Status Reason Start Date Expiration Date Visits Requested Visits Authorized [id number] Pending Review Auto-Generat ed Referral 08/14/2023 08/13/2024 1 1 [facility] for visit Narrative* Diagnostic Procedure Only (Routine) - Closed Specialty Diagnoses / Procedures Referred By Contac t Referred To Contact US IMAGING Diagnoses Unintentional weight loss Procedures US ABDOMEN COMPLETE US ABDOMINAL REAL TIME W/IMAGE DOCUMENTATION Frank Salinas MD [address] [place] [address] [place] [address] Referral ID Status Reason Start Date Expiration Date V isits Requested Visits Authorized [id number] Closed Auto-Generate d Referral 04/09/2023 05/08/2024 1 1 [facility] for visit Narrative* Diagnostic Procedure Only (Routine) - Closed Specialty Diagnoses / Procedures Referred By Contac t Referred To Contact BR IMAGING Diagnoses Encounter for screening mammogram for breast cancer Procedures BERHANE SCREENING SCREENING MAMMOGRAPHY BI 2-VIEW BREAST INC CAD Frank Salinas MD [address] [place] [address] [facility] [address] [place] [address] Referral ID Status Reason Start Date Expiration Date V isits Requested Visits Authorized [id number] Closed Auto-Generate d Referral 03/13/2022 04/12/2023 1 1 [facility] Diagnostic Procedure Only (Routine) - Closed Specialty Diagnoses / Procedures Referred By Contac t Referred To Contact BR IMAG[facility] Diagnoses Encounter for screening mammogram for malignant neoplasm of breast Procedures BERHANE SCREENING SCREENING MAMMOGRAPHY BI 2-VIEW BREAST INC CAD Frank Salinas MD [address] [place] [address] [facility] [address] [place] [address] Referral ID Status Reason Start Date Expiration Date V isits Requested Visits Authorized [id number] Closed Auto-Generate d Referral 10/16/2022 11/15/2023 1 1 [facility] Summary Purpose Family History No Family History Records FoundNo Family History Records FoundNo Family History Records Found Advance Directives No Advanced Directives Records FoundNo Advanced Directives Records FoundNo Advanced Directives Records Found Reason for Referral Specialty Diagnoses / Procedures Referred By Contac t Referred To Contact General Surgery Diagnoses Diarrhea, unspecified type Bowel habit changes Procedures CONSULT TO GENERAL SURGERY OFFICE/OUTPATIENT [facility] MDM 60-74 MINUTES Lara Hoffman PA-C [address] [place] [address] Referral ID Status Reason Start Date Expiration Date Visits Requested Visits Authorized [id number] Pending Review PCP Requested Referral 07/19/2022 07/19/2023 1 1 Specialty Diagnoses / Procedures Referred By Contac t Referred To Contact Neurology Diagnoses Remote history of stroke Procedures CONSULT TO NEUROLOGY OFFICE/OUTPATIENT [facility] MDM 60-74 MINUTES Lara Hoffman PA-C [address] [place] [address] Referral ID Status Reason Start Date Expiration Date Visits Requested Visits Authorized [id number] Pending Review PCP Requested Referral 12/26/2022 12/26/2023 1 1 Specialty Diagnoses / Procedures Referred By Contac t Referred To Contact CT IMAGING Diagnoses Unintentional weight change Procedures CT CHEST WO IVCON DIAGNOSTIC COMPUTED TOMOGRAPHY THORAX W/O CNTRST Frank Salinas MD [address] [place] [address] [place] [address] Referral ID Status Reason Start Date Expiration Date Visits Requested Visits Authorized [id number] Authorized Auto-Generat ed Referral 05/12/2024 1 1 Referral ID Status Reason Start Date Expiration Date V isits Requested Visits Authorized [id number] Closed Auto-Generate d Referral 04/13/2023 05/12/2024 1 1 Specialty Diagnoses / Procedures Referred By Contac t Referred To Contact Diagnoses Endometrial hyperplasia Procedures CONSULT TO FEED MANAGER OFFICE/OUTPATIENT [facility] 60-74 MINUTES Frank Salinas MD [address] [place] [id number] Referral ID Status Reason Start Date Expiration Date Visits Requested Visits Authorized [id number] Pending Review PCP Requested Referral Auto-Generate d Referral 06/02/2023 06/01/2024 1 1 Specialty Diagnoses / Procedures Referred By Contac t Referred To Contact Cardiology Diagnoses Pre-op exam Abnormal EKG Procedures CONSULT TO CARDIOLOGY OFFICE/OUTPATIENT [facility] 60 MINUTES Fadumo Yang MD [address] [place] [phone] Referral ID Status Reason Start Date Expiration Date Visits Requested Visits Authorized [id number] Authorized PCP Requested Referral 08/11/2023 08/10/2024 1 1 Additional Source Comments Source Comments (unrecognize d section and content) In the event this informatio n is protected by the Federal Confidentiality of Alcohol and Drug Abuse Patient Records regulations: The Federal rules restrict any use of the information to criminally investigate or prosecute any alcohol or drug abuse patient.[facility] event this information is protected by the Federal Confidentiality of Alcohol and Drug Abuse Patient Records regulations: The Federal rules restrict any use of the information to criminally investigate or prosecute any alcohol or drug abuse patient.[facility] the event this information is protected by the Federal Confidentiality of Alcohol and Drug Abuse Patient Records regulations: The Federal rules restrict any use of the information to criminally investigate or prosecute any alcohol or drug abuse patient.[facility] the event this information is protected by the Federal Confidentiality of Alcohol and Drug Abuse Patient Records regulations: The Federal rules restrict any use of the information to criminally investigate or prosecute any alcohol or drug abuse patient.[facility] the event this information is protected by the Federal Confidentiality of Alcohol and Drug Abuse Patient Records regulations: The Federal rules restrict any use of the information to criminally investigate or prosecute any alcohol or drug abuse patient.[facility] the event this information is protected by the Federal Confidentiality of Alcohol and Drug Abuse Patient Records regulations: The Federal rules restrict any use of the information to criminally investigate or prosecute any alcohol or drug abuse patient.[facility] the event this information is protected by the Federal Confidentiality of Alcohol and Drug Abuse Patient Records regulations: The Federal rules restrict any use of the information to criminally investigate or prosecute any alcohol or drug abuse patient.[facility] the event this information is protected by the Federal Confidentiality of Alcohol and Drug Abuse Patient Records regulations: The Federal rules restrict any use of the information to criminally investigate or prosecute any alcohol or drug abuse patient.[facility] the event this information is protected by the Federal Confidentiality of Alcohol and Drug Abuse Patient Records regulations: The Federal rules restrict any use of the information to criminally investigate or prosecute any alcohol or drug abuse patient.[facility] the event this information is protected by the Federal Confidentiality of Alcohol and Drug Abuse Patient Records regulations: The Federal rules restrict any use of the information to criminally investigate or prosecute any alcohol or drug abuse patient.[facility] the event this information is protected by the Federal Confidentiality of Alcohol and Drug Abuse Patient Records regulations: The Federal rules restrict any use of the information to criminally investigate or prosecute any alcohol or drug abuse patient.[facility] HospitalIn the event this information is protected by the Federal Confidentiality of Alcohol and Drug Abuse Patient Records regulations: The Federal rules restrict any use of the information to criminally investigate or prosecute any alcohol or drug abuse patient.[facility] HospitalIn the event this information is protected by the Federal Confidentiality of Alcohol and Drug Abuse Patient Records regulations: The Federal rules restrict any use of the information to criminally investigate or prosecute any alcohol or drug abuse patient.[facility] HospitalIn the event this information is protected by the Federal Confidentiality of Alcohol and Drug Abuse Patient Records regulations: The Federal rules restrict any use of the information to criminally investigate or prosecute any alcohol or drug abuse patient.[facility] HospitalIn the event this information is protected by the Federal Confidentiality of Alcohol and Drug Abuse Patient Records regulations: The Federal rules restrict any use of the information to criminally investigate or prosecute any alcohol or drug abuse patient.[facility] HospitalIn the event this information is protected by the Federal Confidentiality of Alcohol and Drug Abuse Patient Records regulations: The Federal rules restrict any use of the information to criminally investigate or prosecute any alcohol or drug abuse patient.[facility] HospitalIn the event this information is protected by the Federal Confidentiality of Alcohol and Drug Abuse Patient Records regulations: The Federal rules restrict any use of the information to criminally investigate or prosecute any alcohol or drug abuse patient.[facility] HospitalIn the event this information is protected by the Federal Confidentiality of Alcohol and Drug Abuse Patient Records regulations: The Federal rules restrict any use of the information to criminally investigate or prosecute any alcohol or drug abuse patient.[facility] HospitalIn the event this information is protected by the Federal Confidentiality of Alcohol and Drug Abuse Patient Records regulations: The Federal rules restrict any use of the information to criminally investigate or prosecute any alcohol or drug abuse patient.[facility] HospitalIn the event this information is protected by the Federal Confidentiality of Alcohol and Drug Abuse Patient Records regulations: The Federal rules restrict any use of the information to criminally investigate or prosecute any alcohol or drug abuse patient.[facility] HospitalIn the event this information is protected by the Federal Confidentiality of Alcohol and Drug Abuse Patient Records regulations: The Federal rules restrict any use of the information to criminally investigate or prosecute any alcohol or drug abuse patient.[facility] HospitalIn the event this information is protected by the Federal Confidentiality of Alcohol and Drug Abuse Patient Records regulations: The Federal rules restrict any use of the information to criminally investigate or prosecute any alcohol or drug abuse patient.[facility] HospitalIn the event this information is protected by the Federal Confidentiality of Alcohol and Drug Abuse Patient Records regulations: The Federal rules restrict any use of the information to criminally investigate or prosecute any alcohol or drug abuse patient.[facility] HospitalIn the event this information is protected by the Federal Confidentiality of Alcohol and Drug Abuse Patient Records regulations: The Federal rules restrict any use of the information to criminally investigate or prosecute any alcohol or drug abuse patient.[facility] HospitalIn the event this information is protected by the Federal Confidentiality of Alcohol and Drug Abuse Patient Records regulations: The Federal rules restrict any use of the information to criminally investigate or prosecute any alcohol or drug abuse patient.[facility] HospitalIn the event this information is protected by the Federal Confidentiality of Alcohol and Drug Abuse Patient Records regulations: The Federal rules restrict any use of the information to criminally investigate or prosecute any alcohol or drug abuse patient.[facility] HospitalIn the event this information is protected by the Federal Confidentiality of Alcohol and Drug Abuse Patient Records regulations: The Federal rules restrict any use of the information to criminally investigate or prosecute any alcohol or drug abuse patient.[facility] HospitalIn the event this information is protected by the Federal Confidentiality of Alcohol and Drug Abuse Patient Records regulations: The Federal rules restrict any use of the information to criminally investigate or prosecute any alcohol or drug abuse patient.[facility] HospitalIn the event this information is protected by the Federal Confidentiality of Alcohol and Drug Abuse Patient Records regulations: The Federal rules restrict any use of the information to criminally investigate or prosecute any alcohol or drug abuse patient.[facility] HospitalIn the event this information is protected by the Federal Confidentiality of Alcohol and Drug Abuse Patient Records regulations: The Federal rules restrict any use of the information to criminally investigate or prosecute any alcohol or drug abuse patient.[facility] HospitalIn the event this information is protected by the Federal Confidentiality of Alcohol and Drug Abuse Patient Records regulations: The Federal rules restrict any use of the information to criminally investigate or prosecute any alcohol or drug abuse patient.[facility] HospitalIn the event this information is protected by the Federal Confidentiality of Alcohol and Drug Abuse Patient Records regulations: The Federal rules restrict any use of the information to criminally investigate or prosecute any alcohol or drug abuse patient.[facility] HospitalIn the event this information is protected by the Federal Confidentiality of Alcohol and Drug Abuse Patient Records regulations: The Federal rules restrict any use of the information to criminally investigate or prosecute any alcohol or drug abuse patient.[facility] HospitalIn the event this information is protected by the Federal Confidentiality of Alcohol and Drug Abuse Patient Records regulations: The Federal rules restrict any use of the information to criminally investigate or prosecute any alcohol or drug abuse patient.[facility] HospitalIn the event this information is protected by the Federal Confidentiality of Alcohol and Drug Abuse Patient Records regulations: The Federal rules restrict any use of the information to criminally investigate or prosecute any alcohol or drug abuse patient.[facility] HospitalIn the event this information is protected by the Federal Confidentiality of Alcohol and Drug Abuse Patient Records regulations: The Federal rules restrict any use of the information to criminally investigate or prosecute any alcohol or drug abuse patient.[facility] HospitalIn the event this information is protected by the Federal Confidentiality of Alcohol and Drug Abuse Patient Records regulations: The Federal rules restrict any use of the information to criminally investigate or prosecute any alcohol or drug abuse patient.[facility] HospitalIn the event this information is protected by the Federal Confidentiality of Alcohol and Drug Abuse Patient Records regulations: The Federal rules restrict any use of the information to criminally investigate or prosecute any alcohol or drug abuse patient.[facility] HospitalIn the event this information is protected by the Federal Confidentiality of Alcohol and Drug Abuse Patient Records regulations: The Federal rules restrict any use of the information to criminally investigate or prosecute any alcohol or drug abuse patient.[facility] HospitalIn the event this information is protected by the Federal Confidentiality of Alcohol and Drug Abuse Patient Records regulations: The Federal rules restrict any use of the information to criminally investigate or prosecute any alcohol or drug abuse patient.[facility] HospitalIn the event this information is protected by the Federal Confidentiality of Alcohol and Drug Abuse Patient Records regulations: The Federal rules restrict any use of the information to criminally investigate or prosecute any alcohol or drug abuse patient.[facility] HospitalIn the event this information is protected by the Federal Confidentiality of Alcohol and Drug Abuse Patient Records regulations: The Federal rules restrict any use of the information to criminally investigate or prosecute any alcohol or drug abuse patient.[facility] HospitalIn the event this information is protected by the Federal Confidentiality of Alcohol and Drug Abuse Patient Records regulations: The Federal rules restrict any use of the information to criminally investigate or prosecute any alcohol or drug abuse patient.[facility] HospitalIn the event this information is protected by the Federal Confidentiality of Alcohol and Drug Abuse Patient Records regulations: The Federal rules restrict any use of the information to criminally investigate or prosecute any alcohol or drug abuse patient.[facility] HospitalIn the event this information is protected by the Federal Confidentiality of Alcohol and Drug Abuse Patient Records regulations: The Federal rules restrict any use of the information to criminally investigate or prosecute any alcohol or drug abuse patient.[facility] HospitalIn the event this information is protected by the Federal Confidentiality of Alcohol and Drug Abuse Patient Records regulations: The Federal rules restrict any use of the information to criminally investigate or prosecute any alcohol or drug abuse patient.[facility] HospitalIn the event this information is protected by the Federal Confidentiality of Alcohol and Drug Abuse Patient Records regulations: The Federal rules restrict any use of the information to criminally investigate or prosecute any alcohol or drug abuse patient.[facility] HospitalIn the event this information is protected by the Federal Confidentiality of Alcohol and Drug Abuse Patient Records regulations: The Federal rules restrict any use of the information to criminally investigate or prosecute any alcohol or drug abuse patient.[facility] HospitalIn the event this information is protected by the Federal Confidentiality of Alcohol and Drug Abuse Patient Records regulations: The Federal rules restrict any use of the information to criminally investigate or prosecute any alcohol or drug abuse patient.[facility] HospitalIn the event this information is protected by the Federal Confidentiality of Alcohol and Drug Abuse Patient Records regulations: The Federal rules restrict any use of the information to criminally investigate or prosecute any alcohol or drug abuse patient.[facility] HospitalIn the event this information is protected by the Federal Confidentiality of Alcohol and Drug Abuse Patient Records regulations: The Federal rules restrict any use of the information to criminally investigate or prosecute any alcohol or drug abuse patient.[facility] HospitalIn the event this information is protected by the Federal Confidentiality of Alcohol and Drug Abuse Patient Records regulations: The Federal rules restrict any use of the information to criminally investigate or prosecute any alcohol or drug abuse patient.[facility] HospitalIn the event this information is protected by the Federal Confidentiality of Alcohol and Drug Abuse Patient Records regulations: The Federal rules restrict any use of the information to criminally investigate or prosecute any alcohol or drug abuse patient.[facility] HospitalIn the event this information is protected by the Federal Confidentiality of Alcohol and Drug Abuse Patient Records regulations: The Federal rules restrict any use of the information to criminally investigate or prosecute any alcohol or drug abuse patient.[facility] HospitalIn the event this information is protected by the Federal Confidentiality of Alcohol and Drug Abuse Patient Records regulations: The Federal rules restrict any use of the information to criminally investigate or prosecute any alcohol or drug abuse patient.[facility] Reason for Visit (unrecogniz ed section and content) Reason Comments Venous Insufficiency 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 Reason Comments Consult colonoscopy Specialty Diagnoses / Procedures Referred By Noe uriz Referred To Contact General Surgery Diagnoses Diarrhea, unspecified type Bowel habit changes Procedures CONSULT TO GENERAL SURGERY OFFICE/OUTPATIENT [facility] 60-74 MINUTES Lara Hoffman PA-C [address] [place] [address] Referral ID Status Reason Start Date Expiration Date Visits Requested Visits Authorized [id number] Pending Review PCP Requested Referral 07/19/2022 07/19/2023 1 1 Reason Onset Date Comments Population Health Navigation Outreach 10/16/2022 [employer] Care Gaps 4.5.23 Reason Comments Handicap Placard Reason Comments Rash Reason Comments Vaginal Problem Itching and rash Reason Comments Hospital F/U Reason Comments Recheck Reason Comments Outside Imaging Reason Comments Patient Question Reason Comments Recheck Left lower leg Reason Comments ED Follow-up Reason Comments ext doc ER, CT, and US resul ts Reason Comments Received Outside Medical Records Images through the PACS system Reason Comments F/U 6 months Reason Comments Follow Up Hz of stroke. Was se en in the hospital over the summer and was told that she had a stroke in the past after getting testing done Specialty Diagnoses / Procedures Referred By Noe ruiz Referred To Contact Neurology / ADULT NEUROLOGY Diagnoses Remote history of stroke Procedures CONSULT TO NEUROLOGY OFFICE/OUTPATIENT [facility] 60-74 MINUTES Lara Hoffman PA-C [address] [place] [address] Neur Adult Frvw [address] [place] [address] Referral ID Status Reason Start Date Expiration Date Visits Requested Visits Authorized [id number] Pending Review PCP Requested Referral 12/26/2022 12/26/2023 4 4 Reason Comments Results Reason Comments Follow Up Open wound on left l eg Reason Comments Radiology CT Specialty Diagnoses / Procedures Referred By Contac t Referred To Contact CT IMAGING Diagnoses Unintentional weight change Procedures CT CHEST WO IVCON DIAGNOSTIC COMPUTED TOMOGRAPHY THORAX W/O CNTRST Frank Salinas MD [address] [place] [address] [address] [place] [address] Referral ID Status Reason Start Date Expiration Date V isits Requested Visits Authorized [id number] Closed Auto-Generate d Referral 04/13/2023 05/12/2024 1 1 Specialty Diagnoses / Procedures Referred By Contac t Referred To Contact CT IMAGING Diagnoses Weight loss, unintentional Procedures CT ABD/PEL W IVCON CT ABD & PELVIS W/CONTRAST Frank Salinas MD [address] [place] [address] [place] [address] Referral ID Status Reason Start Date Expiration Date V isits Requested Visits Authorized [id number] Closed Auto-Generate d Referral 04/22/2023 05/21/2024 [address] Specialty Diagnoses / Procedures Referred By Contac t Referred To Contact CT IMAGING Diagnoses Weight loss, unintentional Procedures CT ABD/PEL W IVCON CT ABD & PELVIS W/CONTRAST Frank Salinas MD [address] [place] [address] [address] [place] [address] Reason Comments Radiology US Specialty Diagnoses / Procedures Referred By Contac t Referred To Contact US IMAGING Diagnoses Uterine mass Procedures US FEMALE PELVIS TRANSVAG US TRANSVAGINAL Frank Salinas MD [address] [place] [address] [place] [address] Referral ID Status Reason Start Date Expiration Date V isits Requested Visits Authorized [id number] Closed Auto-Generate d Referral 05/23/2023 06/21/2024 1 1 Reason Comments Pre-Op Exam Reason Comments Pre-Op Exam Reason Comments Appointment Reason Comments Medical Clearance Reason Comments Outside Cardiology Reason Comments Outside H&P Care Teams (unrecognized sec tion and content) Energy Consultant Relationship Specialty Start Date End Date Frank Salinas MD [address] [place] [address] [place] [address] PCP - General Family Practice 02/12/14 Jaqueline Cuellar MD [address] [place] [address] General Surgery 07/12/21 Energy Consultant Relationship Specialty Start Date End Date Frank Salinas MD [address] [place] [address] PCP - General Family Practice 02/12/14 Jaqueline Cuellar MD [address] [place] [place] [address] General Surgery 07/12/21 Energy Consultant Relationship Specialty Start Date End Date Frank Salinas MD [address] [place] [address] PCP - General Family Medicine 02/12/14 Jaqueline Cuellar MD [address] [place] [place] [address] General Surgery 07/12/21 Energy Consultant Relationship Specialty Start Date End Date Frank Salinas MD [address] [place] [address] PCP - General Family Medicine 02/12/14 Jaqueline Ceullar MD [address] [address] General Surgery 07/12/21 Energy Consultant Relationship Specialty Start Date End Date Frank Salinas MD [address] [place] [address] PCP - General Family Medicine 02/12/14 Jaqueline Cuellar MD [address] [address] General Surgery 07/12/21 Energy Consultant Relationship Specialty Start Date End Date Frank Salinas MD [address] [place] [address] PCP - General Family Medicine 02/12/14 Jaqueline Cuellar MD [address] [place] [place] [address] General Surgery 07/12/21 Energy Consultant Relationship Specialty Start Date End Date Frank Salinas MD [address] [place] [address] PCP - General Family Medicine 02/12/14 Jaqueline Cuellar MD [address] [place] [place] [address] General Surgery 07/12/21 Energy Consultant Relationship Specialty Start Date End Date Frank Salinas MD [address] [place] [address] PCP - General Family Medicine 02/12/14 Jaqueline Cuellar MD [address] [place] [address] General Surgery 07/12/21 Energy Consultant Relationship Specialty Start Date End Date Frank Salinas MD [address] [place] [address] PCP - General Family Medicine 02/12/14 Jaqueline Cuellar MD [address] [place] [address] General Surgery 07/12/21 Energy Consultant Relationship Specialty Start Date End Date Frank Salinas MD [address] [place] [address] PCP - General Family Medicine 02/12/14 Jaqueline Cuellar MD [address] [place] [address] General Surgery 07/12/21 Energy Consultant Relationship Specialty Start Date End Date Frank Salinas MD [address] [place] [address] PCP - General Family Medicine 02/12/14 Jaqueline Cuellar MD [address] [address] General Surgery 07/12/21 Energy Consultant Relationship Specialty Start Date End Date Frank Salinas MD [address] [place] [address] PCP - General Family Medicine 02/12/14 Jaqueline Cuellar MD [address] [address] General Surgery 07/12/21 Energy Consultant Relationship Specialty Start Date End Date Frank Salinas MD [address] [place] [address] PCP - General Family Medicine 02/12/14 Jaqueline Cuellar MD [address] [address] General Surgery 07/12/21 Energy Consultant Relationship Specialty Start Date End Date Frank Salinas MD [address] [place] [address] PCP - General Family Medicine 02/12/14 Jaqueline Cuellar MD [address] [place] [address] General Surgery 07/12/21 Energy Consultant Relationship Specialty Start Date End Date Frank Salinas MD [address] [place] [address] PCP - General Family Medicine 02/12/14 Jaqueline Cuellar MD [address] [facility] [place] [address] General Surgery 07/12/21 Energy Consultant Relationship Specialty Start Date End Date Frank Salinas MD [address] [place] [address] PCP - General Family Medicine 02/12/14 Jaqueline Cuellar MD [address] [facility] [place] [address] General Surgery 07/12/21 Energy Consultant Relationship Specialty Start Date End Date Frank Salinas MD [address] [place] [address] PCP - General Family Medicine 02/12/14 Jaqueline Cuellar MD [address] [place] [address] General Surgery 07/12/21 Energy Consultant Relationship Specialty Start Date End Date Frank Salinas MD [address] [place] [address] PCP - General Family Medicine 02/12/14 Jaqueline Cuellar MD [address] [place] [address] General Surgery 07/12/21 Energy Consultant Relationship Specialty Start Date End Date Frank Salinas MD [address] [place] [address] PCP - General Family Medicine 02/12/14 Jqaueline Cuellar MD [address] [place] [address] General Surgery 07/12/21 Energy Consultant Relationship Specialty Start Date End Date Frank Salinas MD [address] [place] [address] PCP - General Family Medicine 02/12/14 Jaqueline Cuellar MD [address] [facility] [place] [address] General Surgery 07/12/21 Energy Consultant Relationship Specialty Start Date End Date Frank Salinas MD [address] [place] [address] PCP - General Family Medicine 02/12/14 Jaqueline Cuellar MD [address] [place] [address] General Surgery 07/12/21 Energy Consultant Relationship Specialty Start Date End Date Frank Salinas MD [address] [place] [address] PCP - General Family Medicine 02/12/14 Jaqueline Cuellar MD [address] [place] [address] General Surgery 07/12/21 Energy Consultant Relationship Specialty Start Date End Date Frank Salinas MD [address] [place] [address] PCP - General Family Medicine 02/12/14 Jaqueline Cuellar MD [address] [place] [address] General Surgery 07/12/21 Energy Consultant Relationship Specialty Start Date End Date Frank Salinas MD [address] [place] [address] PCP - General Family Medicine 02/12/14 Jaqueline Cuellar MD [address] [place] [address] General Surgery 07/12/21 Energy Consultant Relationship Specialty Start Date End Date Frank Salinas MD [address] [place] [address] PCP - General Family Medicine 02/12/14 Jaqueline Cuellar MD [address] [place] [address] General Surgery 07/12/21 Energy Consultant Relationship Specialty Start Date End Date Frank Salinas MD [address] [place] [address] PCP - General Family Medicine 02/12/14 Jaqueline Cuellar MD [address] [place] [address] General Surgery 07/12/21 Energy Consultant Relationship Specialty Start Date End Date Frank Salinas MD [address] [place] [address] PCP - General Family Medicine 02/12/14 Jaqueline Cuellar MD [address] [place] [address] General Surgery 07/12/21 Energy Consultant Relationship Specialty Start Date End Date Frank Salinas MD [address] [place] [address] PCP - General Family Medicine 02/12/14 Jaqueline Cuellar MD [address] [place] [address] General Surgery 07/12/21 Energy Consultant Relationship Specialty Start Date End Date Frank Salinas MD [address] [place] [address] PCP - General Family Medicine 02/12/14 Jaqueline Cuellar MD [address] [place] [address] General Surgery 07/12/21 Energy Consultant Relationship Specialty Start Date End Date Frank Salinas MD [address] [place] [address] PCP - General Family Medicine 02/12/14 Jaqueline Cuellar MD [address] [place] [address] General Surgery 07/12/21 Energy Consultant Relationship Specialty Start Date End Date Frank Salinas MD [address] [place] [address] PCP - General Family Medicine 02/12/14 Jaqueline Cuellar MD [address] [place] [address] General Surgery 07/12/21 Energy Consultant Relationship Specialty Start Date End Date Frank Salinas MD [address] [facility] [place] [address] PCP - General Family Medicine 02/12/14 Jaqueline Cuellar MD [address] [place] [address] General Surgery 07/12/21 Energy Consultant Relationship Specialty Start Date End Date Frank Salinas MD [address] [facility] [place] [address] PCP - General Family Medicine 02/12/14 Jaqueline Cuellar MD [address] [place] [address] General Surgery 07/12/21 Energy Consultant Relationship Specialty Start Date End Date Frank Salinas MD [address] [facility] [place] [address] PCP - General Family Medicine 02/12/14 Jaqueline Cuellar MD [address] [place] [id number] General Surgery 07/12/21 INFORMATION SOURCE (unrecogn ized section and content) DATE CREATED AUTHOR AUTHOR'S ORGANIZ ATION 04/16/2023 [facility] DATE CREATED AUTHOR AUTHOR'S ORGANIZ ATION 09/04/2023 [facility] FOR RECORDS PERTAINING TO PATIENTS WHO ARE OR HAVE BEEN ENROLLED IN A CHEMICAL DEPENDENCY/SUBSTANCEABUSE PROGRAM, SOME INFORMATION MAY BE OMITTED. This clinical summary was aggregated from multiple sources. Caution should be exercised in using it in the provision of clinical care. This summary normalizes information from multiple sources, and as a consequence, information in this document may materially change the coding, format and clinical context of patient data. In addition, data may be omitted in some cases. CLINICAL DECISIONS SHOULD BE BASED ON THE PRIMARY CLINICAL RECORDS. [facility]. provides no warranty or guarantee of the accuracy or completeness of information in this document.
[2023-09-05 10:38] VITALS: BP 153/83; PULSE 61; RESP 16; TEMP 36.1; O2SAT 97; BMI 37.0
[2023-09-05] MEDS: Lactated Ringers 1,000 ML 15 ML IV (10:52)
--- NOTE | 2023-09-05 11:35 | EMB_PTH ---
PATHOLOGY RESULTS PATIENT: TASHA MCNALLY [place] [id number] AGE/SX: 77/F ROOM: RE09/05/[address]: Dr. Fadumo Mckeon MD : 1945 BED: DIS: 09/05/2023 SPEC #: [id number] RECD: 09/05/23 12:49 STATUS: HAYLEE ALTMAN #: [id number] MELANI: 09/05/23 11:[address]: Fadumo Mckeon DEPT: SURGICAL PATHOLOGY RECD BY: Yesica Hendricks ENTERED: 09/05/23 12:50 SP TYPE: ENDOM BX/C OTHR DR: Dr. Frank Salinas MD Tissues: Endometrium, NOS Procedures: Surgery Specimen Level IV HEADER OPERATION: Hysteroscopy, D & C Symphion, polypectomy PRE-OP DIAGNOSIS: Thickened endometrium TISSUE SUBMITTED: Endometrial curettings and polyp MICROSCOPIC DIAGNOSIS Endometrial curettings and polyp, polypectomy: Consistent with fragments of endometrial polyp with simple cystic hyperplasia without atypia. Fragments of myometrium. See comment. JEFF:melina 09/08/2023 COMMENT Clinical correlation and appropriate follow up are necessary. MICROSCOPIC DESCRIPTION Slides are reviewed. GROSS DESCRIPTION Received in fixative is one container labeled with the patient's name and designated endometrial curettings and polyp. The specimen consists of multiple irregular fragments of barr, indurated tissue that in aggregate measure 5.0 x 3.0 x 1.0 cm. The entire specimen is submitted in seven cassettes. / JEFF:melina 09/05/2023 TC:5 CPT: 90777
--- NOTE | 2023-09-05 11:53 | PCM.OPRPT ---
Report of Operation Date of Procedure: 09/05/23 Pre-Operative Diagnosis: thickened endometrium, Atypical endometrial cells on EMB, Endometrial polyp Post-Operative Diagnosis: same Surgery/Procedure Performed:: Hysteroscopy, D&C, polypectomy Description of Surgical Findings:: Multiple large endometrial polyps that were incoporating the entire endometrial cavity. Area near left tubal ostia with possible submucosal fibroid and endometrial mass. Able to remove majority of what appeared to be submucosal fibroid but due to angle and location small base was left on posterior aspect of uterus. The mass at the left tubal ostia was removed completely. Surgeon: dhiraj lindo cabin cleaning supervisor: None Type of Anesthesia: MAC Specimen's removed: Endometrial curettings, Endometrial polyps Estimated Blood Loss (mL): <5cc Fluids Replaced: 700 Description of Procedure: Informed consent was obtained the patient was taken the operating room she was placed in supine position. She was given anesthesia. She was then placed in the [facility] where she was prepped and draped in the normal sterile fashion. At this time the weighted speculum was placed in the posterior fornix of vagina. Single-tooth tenaculum was used to gently grasp the anterior lip the cervix. At this time the uterine cavity was sounded to approximately 10 cm. Gentle dilatation was performed once adequate dilatation of the cervix was achieved the hysteroscope using normal saline as a distention medium was placed. Large polypoid amount of tissue encompassing the entire endometrial cavity. Small possible submucosal fibroid noted by left tubal ostia on posterior aspect of uterus. Tubal ostia visualized. Symphion resecting device used to obtain endometrial curettings and to perform polypectomy, able to remove all tissue but small base of what appeared to be possible submucosal fibroid due to megan. there appeared to be some studding on surface of endometrium. Tissue will be sent to pathology for evaluation. Tenaculum removed. Good hemostasis. Instrument, lap count correct x 2. Fluid deficit 400cc. Vaginal Sweep was negative. Grafts/Implants Used: none Procedure Start Time: 11:33 Procedure Stop Time: 11:52 Complications none Admit VTE Documentation VTE Present on Admission: Yes VTE Mechan Device Prophylaxis: SCD's VTE Pharm Prophylaxis ordered?: No Reason prophylaxis not ordered:: Procedure Not Indicated
[2023-09-05 12:00] VITALS: BP 138/78; BP 153/83; PULSE 76; RESP 16; TEMP 36.1; O2SAT 92
--- NOTE | 2023-09-05 12:01 | DCINST_ITS ---
Discharge Instructions Diet Discharge Diet: No restrictions Activity May resume sexual activity in: 1 week Dressing / Incision Call your doctor if you observe: Fever of 101 or Higher, Inability to urinate, Using more than 1 pad per hour and Uncontrolled pain Follow Up Care Please Follow Up With: Fadumo Mckeon MD When: 1-2 weeks post OP if you need an appointment please call [phone] Test Results: Test results from this visit will be discussed in further detail at your follow- up appointment, if applicable. Discharge Plan Admission Attending Provider: Fadumo Mckeon Primary Care Provider: Frank Salinas Discharge Orders/Prescriptions Prescriptions: No Action aspirin 81 mg tablet,chewable 81 mg PO DAILY meclizine [meclizine] 25 mg tablet 25 mg PO Q6H PRN PRN (Reason: Dizziness) Qty: 20 0RF cholecalciferol (vitamin D3) [Vitamin D3] 50 mcg (2,000 unit) capsule 50 mcg PO DAILY fluticasone propionate 50 mcg/actuation spray,suspension 2 spray INTRANASAL DAILY Patient Comments: instill 2 sprays into each nostril once daily Referrals / Follow Up: Frank Salinas MD [Primary Care Provider] - Disposition Disposition (needs filled in before D/C Order can be placed): Home, Self Care
[2023-09-05 12:05] VITALS: BP 149/89; BP 153/83; PULSE 77; RESP 16; O2SAT 94
[2023-09-05 12:10] VITALS: BP 153/83; BP 153/97; PULSE 77; RESP 16; O2SAT 93
[2023-09-05 12:15] VITALS: BP 151/88; BP 153/83; PULSE 76; RESP 16; TEMP 36.3; O2SAT 95
[2023-09-05 12:41] VITALS: BP 153/83
== END 2023-09-05 12:56 | disposition home or self-care (01) ==
LOC: SDC 10:14 → AC 10:21
PROVIDERS: PCP Family Medicine; Referring Provider Family Medicine; Visit Provider Obstetrics & Gynecology
PROC: 0UB98ZZ Excision of Uterus, Via Natural or Artificial Opening Endoscopic (ICD-10-PCS; CPT 58558; principal; 2023-09-05 11:20)
DX: N84.0 Polyp of corpus uteri (principal); N18.4 Chronic kidney disease, stage 4 (severe); G89.29 Other chronic pain; Z86.73 Personal history of transient ischemic attack (TIA), and cerebral infarction without residual deficits; Z86.19 Personal history of other infectious and parasitic diseases; Z79.82 Long term (current) use of aspirin
CPT/HCPCS: 58558; 00952; 88305; J7120; J2405

== ENCOUNTER 2024-01-03 18:36 | Observation (INO) | payer MEDICARE, SELFPAY ==
[2024-01-03 18:38] VITALS: BP 141/80; PULSE 73; RESP 11; TEMP 36.7; O2SAT 95; BMI 39.4
[2024-01-03 18:47] VITALS: BMI 39.4
--- NOTE | 2024-01-03 18:52 | EKG12_ITS ---
Test Reason : STROKE LIKE SYMPTOMS Blood Pressure : / mmHG Vent. Rate : 070 BPM Atrial Rate : 070 BPM P-R Int : 150 ms QRS Dur : 084 ms QT Int : 450 ms P-R-T Axes : 030 048 071 degrees QTc Int : 486 ms Normal sinus rhythm Low voltage QRS Borderline ECG Confirmed by Jovany Montalvo ([id number]), material expeditor SHANTAL OVERTON ([id number]) on 01/05/2024 1:45:36 PM Referred By: JANETT Confirmed By:Jovany Montalvo
--- NOTE | 2024-01-03 18:53 | CT_ITS ---
EXAM: CT ANGIOGRAPHY HEAD AND NECK WITH INTRAVENOUS CONTRAST CLINICAL INDICATION: confusion TECHNIQUE: [place]/head and neck CT angiography protocol performed with intravenous contrast. This CT exam was performed using one or more of the following dose reduction techniques: automated exposure control, adjustment of the mA and/or kV according to patient size, and/or use of iterative reconstruction technique. MIP reconstructed images were created and reviewed. CONTRAST: IV 100mL Isovue-370 COMPARISON: No relevant prior studies available. FINDINGS: HEAD: RIGHT ANTERIOR CEREBRAL ARTERY: Unremarkable. No occlusion or significant stenosis. Anterior communicating artery is present. No aneurysm. RIGHT MIDDLE CEREBRAL ARTERY: Unremarkable. No occlusion or significant stenosis. No aneurysm. RIGHT POSTERIOR CEREBRAL ARTERY: Unremarkable. No occlusion or significant stenosis. No aneurysm. RIGHT INTRACRANIAL INTERNAL CAROTID ARTERY: Unremarkable. No significant stenosis. No dissection or occlusion. RIGHT INTRACRANIAL VERTEBRAL ARTERY: Unremarkable. No significant stenosis. No dissection or occlusion. LEFT ANTERIOR CEREBRAL ARTERY: Unremarkable. No occlusion or significant stenosis. No aneurysm. LEFT MIDDLE CEREBRAL ARTERY: Unremarkable. No occlusion or significant stenosis. No aneurysm. LEFT POSTERIOR CEREBRAL ARTERY: Unremarkable. No occlusion or significant stenosis. No aneurysm. LEFT INTRACRANIAL INTERNAL CAROTID ARTERY: Unremarkable. No significant stenosis. No dissection or occlusion. LEFT INTRACRANIAL VERTEBRAL ARTERY: Unremarkable. No significant stenosis. No dissection or occlusion. BASILAR ARTERY: Unremarkable. No occlusion or significant stenosis. No aneurysm. OTHER VASCULATURE: No vascular malformation. NECK: RIGHT COMMON CAROTID ARTERY: Unremarkable. No significant stenosis. No dissection or occlusion. RIGHT EXTRACRANIAL INTERNAL CAROTID ARTERY: Unremarkable. No significant stenosis. No dissection or occlusion. RIGHT EXTERNAL CAROTID ARTERY: Unremarkable. No occlusion. RIGHT EXTRACRANIAL VERTEBRAL ARTERY: Unremarkable. No significant stenosis. No dissection or occlusion. LEFT COMMON CAROTID ARTERY: Unremarkable. No significant stenosis. No dissection or occlusion. LEFT EXTRACRANIAL INTERNAL CAROTID ARTERY: Unremarkable. No significant stenosis. No dissection or occlusion. LEFT EXTERNAL CAROTID ARTERY: Unremarkable. No occlusion. LEFT EXTRACRANIAL VERTEBRAL ARTERY: Unremarkable. No significant stenosis. No dissection or occlusion. BRACHIOCEPHALIC AND SUBCLAVIAN ARTERIES: Unremarkable as visualized. No occlusion or significant stenosis. LUNG APICES: Unremarkable as visualized. HEAD and NECK: BONES/JOINTS: Unremarkable. No discrete lytic or blastic abnormalities. SOFT TISSUES: Unremarkable. CAROTID STENOSIS REFERENCE USING NASCET CRITERIA: % ICA stenosis = (1 - narrowest ICA diameter/diameter of distal cervical ICA) x 100. Mild - <50% stenosis. Moderate - 50-69% stenosis. Severe - 70-94% stenosis. Near occlusion - 95-99% stenosis. Occluded - 100% stenosis. CT/CTA Head AND Neck W/ Contrast IMPRESSION: Negative CTA carotid and CTA brain. Electronically Signed: Reese Alvarez MD at 21:02 EDT ,
--- NOTE | 2024-01-03 18:55 | EDS_ITS ---
HPI <AURA Noriega - Last Filed: 01/03/24 21:27> History of Present Illness Chief Complaint: Neuro S/Sx Narrative Narrative: 78-year-old female with no significant past medical history presents after an episode of altered speech that occurred at 1:30 PM. She states she was standing outside talking to a neighbor about December 31 and while conversing the neighbor said she suddenly could not understand her. Her speech difficulty lasted about 15 minutes and then resolved. She reports a similar episode of difficulty getting her words out/garbled speech that occurred a few weeks ago at the bank that lasted about 15 minutes. Her called EMS this evening because he thought she had left-sided weakness; however, patient does not recall feeling weak on the left side. She states her speech is back to normal. She has had no recent headache, vision changes, or focal motor or sensory changes. She has some difficulty with walking at baseline due to left knee pain. She has no history of TIA/CVA. She takes aspirin 81 mg, Tylenol, and vitamin D. [facility] <AURA Noriega - Last Filed: 01/03/24 21:27> [facility] Medical History Abnormal EKG CEASAR (acute kidney injury) Allergy-induced asthma Arthritis Breast density C. difficile colitis Cerebellar stroke Cerebral microvasculopathy CKD (chronic kidney disease) stage 3, GFR 30-59 ml/min Diarrhea Dizziness Edema of both lower legs High cholesterol History of Clostridium difficile infection History of edema History of renal disease HTN (hypertension) Hypersomnia Impaired fasting glucose Lacunar infarction Left leg cellulitis Left leg cellulitis Leukocytosis Lung nodules Lupus Mixed hyperlipidemia Non-smoker Peripheral vascular insufficiency Post-menopausal Remote history of stroke Synovial cyst of left popliteal space Thickened endometrium Traumatic open wound of lower leg with infection Varicose veins of both lower extremities Venous insufficiency of both lower extremities Vitamin D deficiency Wears glasses Home Medications ?Medication ?Instructions ?Recorded ?Last Taken ?Type cholecalciferol (vitamin D3) 50 50 mcg PO DAILY 08/06/23 Unknown History mcg (2,000 unit) capsule (Vitamin D3) aspirin 81 mg chewable tablet 81 mg PO DAILY 08/20/23 09/04/23 History Allergy/AdvReac Type Severity Reaction Status Date / Time fexofenadine (From Mar) Allergy Hives Verified 01/03/24 18:38 montelukast (From Singulair) AdvReac Intermediate Rash Verified 01/03/24 18:38 Family History Mother , throat and tongue Cancer Father , 92 Diabetes CVA (cerebral vascular accident) Other Breast cancer Hodgkin's disease Kidney disease Rheumatoid arthritis Surgical History H/O vein stripping Hx of breast biopsy Hx of laparoscopy Hx of local excision of skin lesion (~05/1999) Social History household members: spouse housing: house Smoking Status: Never smoker alcohol intake: never substance use type: does not use ROS <AURA Noriega - Last Filed: 01/03/24 21:27> ROS ED ROS Narrative Constitutional: Negative for fever, chills. CVS: Negative for chest pain. Respiratory: Negative for shortness of breath. GI: Negative for abdominal pain, nausea, vomiting. Neuro: Negative for headache. EXAM <AURA Noriega - Last Filed: 01/03/24 21:27> Physical Exam Narrative Exam Narrative: CONST: Patient sitting in no acute distress. EYES: Normal inspection. NECK: Normal inspection. RESP: No respiratory distress, CTAB. CVS: Regular rate and rhythm, no murmur, no gallop. ABD: Soft and nontender, no guarding or rebound, nondistended. SKIN: Color normal, no rash, warm, dry, intact. EXTREMITIES: Normal appearance, some difficulty moving left leg due to knee pain. Mild redness of the left dior without tenderness or significant warmth. NEURO: Alert and answering questions appropriately. PERRL, EOMI, no visual field deficits, face symmetric, no upper or lower extremity drift. Normal finger-nose and [id number]. No aphasia or dysarthria. PSYCH: Normal affect. Const Vital Signs: 01/03/24 18:38 01/03/24 20:42 01/03/24 21:00 Temperature 98.1 F Temperature Source Oral Pulse Rate 73 81 76 Respiratory Rate 11 L 20 H 24 H Blood Pressure 141/80 H 161/94 H Blood Pressure Mean 100 116 Pulse Ox 95 95 94 Oxygen Delivery Method Room Air Room Air Room Air <Dr. Jhonatan Luz MD - Last Filed: 01/03/24 19:41> Physical Exam Const Vital Signs: 01/03/24 18:38 01/03/24 20:42 01/03/24 21:00 Temperature 98.1 F Temperature Source Oral Pulse Rate 73 81 76 Respiratory Rate 11 L 20 H 24 H Blood Pressure 141/80 H 161/94 H Blood Pressure Mean 100 116 Pulse Ox 95 95 94 Oxygen Delivery Method Room Air Room Air Room Air MDM <AURA Noriega - Last Filed: 01/03/24 21:27> [facility] Narrative Medical decision making narrative: History gathered from: Patient and Differential: TIA, CVA, electrolyte abnormality or UTI Patient had transient expressive aphasia and her thought she had left- sided weakness this afternoon. All symptoms have resolved and in the emergency room she is awake alert in no distress. Vital signs stable. She is speaking clearly in full sentences. NIH is 0. Labs show normal white count of 8.3, hemoglobin of 15.3, but low platelets at 28. She has no history of thrombocytopenia and has no signs or symptoms of bleeding diathesis. Electrolytes are normal with creatinine of 1.22. CXR negative. UA has some evidence of infection but is contaminated and she is not symptomatic so will be cultured. CTA head/neck shows no acute findings. She denied history of TIA or CVA but records from prior admission in November [address]/MRI brain showing a remote left cerebellar infarct. Since she has had 2 episodes of transient expressive aphasia in the last month I feel she is at high risk for stroke and requires admission. Case was discussed with the hospitalist. Lab Data Attestation: I reviewed the patient's lab results. Labs: Laboratory Results - last 24 hr 01/03/24 01/03/24 19:10 20:20 WBC 8.3 RBC 5.79 H Hgb 15.3 H Hct 49.3 H MCV 85.1 MCH 26.4 L MCHC 31.0 L RDW Std Deviation 45.6 H RDW Coeff of Joya 15.1 H Plt Count 28 L* MPV TNP Immature Gran % (Auto) 0.500 Neut % (Auto) 42.0 L Lymph % (Auto) 28.1 Rabun % (Auto) 13.2 H Eos % (Auto) 15.0 H Baso % (Auto) 1.2 H Absolute Neuts (auto) 3.5 Absolute Lymphs (auto) 2.34 Nucleated RBC % 0.2 Differential Comment Diff Path Review May foll Sodium 140 Potassium 4.5 Chloride 109 H Carbon Dioxide 27.0 Anion Gap 4 L BUN 14 Creatinine 1.22 H Estim Creat Clear Calc 47.86 Est GFR (MDRD) Af Amer 55 L Est GFR (MDRD) Non-Af 46 L BUN/Creatinine Ratio 11.5 Glucose 104 Calcium 8.1 L Urine Color Yellow Urine Clarity Sl. Cloudy Urine pH 5.0 Ur Specific [place] 1.020 Urine Protein 30 H Urine Glucose (UA) Normal Urine Ketones 5 H Urine Occult Blood Negative Urine Nitrite Negative Urine Bilirubin Negative Urine Urobilinogen 1 H Ur Leukocyte Esterase 500 H Urine RBC 0 SEEN Urine WBC 10-25 SEEN Ur Squamous Epith Cells 5-10 SEEN Urine Bacteria 1+ Urine Mucus 0 SEEN Radiography Diagnostic Testing: Clinical Impression(s) from Imaging Studies Head/Neck CTA 01/03/24 18:53 IMPRESSION: Negative CTA carotid and CTA brain. Electronically Signed: Reese Alvarez MD at 21:02 EDT , Chest X-Ray 01/03/24 19:27 IMPRESSION: No radiographic evidence of acute cardiopulmonary disease. Electronically Signed: Reese Alvarez MD at 20:48 EDT , EKG Initial EKG: Attestation: I personally reviewed and interpreted this EKG as follows: Interpretation: Sinus Rhythm and No Acute Injury Pattern Comments: Normal sinus rhythm at 70 bpm Low voltage QRS, normal axis No acute ischemic changes <Dr. Jhonatan Luz MD - Last Filed: 01/03/24 19:41> [facility] Lab Data Labs: Laboratory Results - last 24 hr 01/03/24 01/03/24 19:10 20:20 WBC 8.3 RBC 5.79 H Hgb 15.3 H Hct 49.3 H MCV 85.1 MCH 26.4 L MCHC 31.0 L RDW Std Deviation 45.6 H RDW Coeff of Joya 15.1 H Plt Count 28 L* MPV TNP Immature Gran % (Auto) 0.500 Neut % (Auto) 42.0 L Lymph % (Auto) 28.1 Rabun % (Auto) 13.2 H Eos % (Auto) 15.0 H Baso % (Auto) 1.2 H Absolute Neuts (auto) 3.5 Absolute Lymphs (auto) 2.34 Nucleated RBC % 0.2 Differential Comment Diff Path Review May foll Sodium 140 Potassium 4.5 Chloride 109 H Carbon Dioxide 27.0 Anion Gap 4 L BUN 14 Creatinine 1.22 H Estim Creat Clear Calc 47.86 Est GFR (MDRD) Af Amer 55 L Est GFR (MDRD) Non-Af 46 L BUN/Creatinine Ratio 11.5 Glucose 104 Calcium 8.1 L Urine Color Yellow Urine Clarity Sl. Cloudy Urine pH 5.0 Ur Specific [place] 1.020 Urine Protein 30 H Urine Glucose (UA) Normal Urine Ketones 5 H Urine Occult Blood Negative Urine Nitrite Negative Urine Bilirubin Negative Urine Urobilinogen 1 H Ur Leukocyte Esterase 500 H Urine RBC 0 SEEN Urine WBC 10-25 SEEN Ur Squamous Epith Cells 5-10 SEEN Urine Bacteria 1+ Urine Mucus 0 SEEN Radiography Diagnostic Testing: Clinical Impression(s) from Imaging Studies Head/Neck CTA 01/03/24 18:53 IMPRESSION: Negative CTA carotid and CTA brain. Electronically Signed: Reese Alvarez MD at 21:02 EDT , Chest X-Ray 01/03/24 19:27 IMPRESSION: No radiographic evidence of acute cardiopulmonary disease. Electronically Signed: Reese Alvarez MD at 20:48 EDT , I reviewed the images of the CT and CTA and agree with the results. 1 view chest x-ray my interpretation negative for nothing acute, no widened mediastinum. Management Discussion w/another healthcare provider: Hospitalist Treatment and Re-Evaluation Comments:: I have personally performed a face to face assessment of the patient and have reviewed the ELVIS Note. I performed a substantive portion of the visit including all aspects of the following. My potter findings include: History is patient describes an expressive aphasia a little earlier. She states it lasted 15 or 20 minutes. She had another episode 2 or 3 weeks ago that was similar. Neither episode associated with other neurologic symptoms or chest pain or syncope. She denies a headache. She states she feels fine now except for chronic left knee pain that she has been dealing with with makes it hard for her to get around she denies any other unilateral neurologic symptoms. Exam is NIHSS 0. No carotid bruits no cardiac murmurs, heart is regular. Normal speech no aphasia or dysarthria. Medical Decison Making suspect TIA. Performing workup for stroke, her symptoms are resolved, plan for admit. ABCD2 Score for TIA from [email or web address] on 01/03/2024 All calculations should be rechecked by clinician prior to use RESULT SUMMARY: 4 points Per the validation study, 4-5 points: Moderate Risk 2-Day Stroke Risk: 4.1% 7-Day Stroke Risk: 5.9% 90-Day Stroke Risk: 9.8% INPUTS: Age = 62 years ?> 1 = Yes BP = 140/90 mmHg ?> 1 = Yes Clinical features of the TIA ?> 1 = Speech disturbance without weakness Duration of symptoms ?> 1 = 10-59 minutes History of diabetes ?> 0 = No Discharge Plan Triage Chief Complaint: Neuro S/Sx ED Midlevel Provider: Bianca Miles ED Provider: Jhonatan Luz Dx/Rx/DC Orders Clinical Impression: TIA (transient ischemic attack), Thrombocytopenia Prescriptions: No Action aspirin 81 mg tablet,chewable 81 mg PO DAILY meclizine [meclizine] 25 mg tablet 25 mg PO Q6H PRN PRN (Reason: Dizziness) Qty: 20 0RF cholecalciferol (vitamin D3) [Vitamin D3] 50 mcg (2,000 unit) capsule 50 mcg PO DAILY fluticasone propionate 50 mcg/actuation spray,suspension 2 spray INTRANASAL DAILY Patient Comments: instill 2 sprays into each nostril once daily Primary Care Provider: Frank Salinas Referrals: Frank Salinas MD [Primary Care Provider] - Print Language: Austrian
[2024-01-03 19:16] LABS: Absolute Lymphocyte Count 2.34 X10^3/uL (0.83-4.51); Absolute Neutrophil Count 3.5 X10^3/uL (2.0-7.7); Basophil% 1.2 % (0-1); Eosinophil# 1.25 X10^3/uL; Hematocrit 49.3 % (37-47); Hemoglobin 15.3 g/dL (12.0-15.0); Lymphocyte # 2.34 X10^3/ul (0.83-4.51); Lymphocyte % 28.1 % (19-41); Mean Corpuscular Hgb 26.4 pg (27.0-32.0); Mean Corpuscular Volume 85.1 fL (81-99); Monocyte% 13.2 % (0-10); NRBC Flagged by Analyzer 0.2 % (0-5); POSITIVE COUNT YES; RBC Distribution Width CV 15.1 % (11.6-14.6); RBC Distribution Width SD 45.6 fl (35.1-43.9); Red Blood Count 5.79 M/mm3 (4.2-5.4); White Blood Count 8.3 K/mm3 (4.4-11.0)
--- NOTE | 2024-01-03 19:27 | RAD_ITS ---
EXAM: XR CHEST, 1 VIEW CLINICAL INDICATION: confusion TECHNIQUE: Frontal view of the chest. COMPARISON: 12/20/2022 FINDINGS: LUNGS AND PLEURAL SPACES: Unremarkable. No consolidation or edema. No pneumothorax. No effusion. HEART: Unremarkable. Cardiac silhouette not enlarged. MEDIASTINUM: Central airways and mediastinal contour are unremarkable. BONES/JOINTS: Unremarkable. No acute fracture. SOFT TISSUES: Unremarkable. RAD/Chest 1 View (Portable) IMPRESSION: No radiographic evidence of acute cardiopulmonary disease. Electronically Signed: Reese Alvarez MD at 20:48 EDT ,
[2024-01-03 19:30] LABS: Anion Gap 4 (5-15); BUN 14 mg/dL (7-18); BUN/Creat Ratio 11.5 RATIO (10-20); Calcium,Total 8.1 mg/dL (8.5-10.1); Chloride 109 mmol/L (98-107); Creatinine, Serum 1.22 mg/dL (0.55-1.02); EST Glomerular Filtration Rate 46 mL/min (>60); Est Glom Filt Rate - Afr Amer 55 mL/min (>60); Estimated Creatinine Clearance 47.86 ml/min; Glucose 104 mg/dL (74-106); Potassium 4.5 mmol/L (3.5-5.1); Sodium Level 140 mmol/L (136-145)
[2024-01-03 19:38] LABS: Differential Indicated SCAN CRITERIA MET; Platelet Count 28 K/mm3 (150-450)
[2024-01-03 20:31] LABS: Color, Urine Yellow (Yellow); Glucose, Dipstick Normal (Normal); Ketone-Dipstick 5 mg/dl (Negative); Leukocyte Esterase-Dipstick 500 /ul (Negative); Mucous, Urine 0 SEEN /hpf (<or=2+); Nitrite-Dipstick Negative (Negative); Occult Blood-Urine Negative /ul (Negative); Protein-Dipstick 30 mg/dl (Negative); Red Blood Cells-Urine 0 SEEN /hpf (0-5); Urine Bilirubin Dipstick Negative (Negative); Urine Clarity Sl. Cloudy (Clear); Urine Urobilinogen 1 mg/dl (Normal)
[2024-01-03 20:42] VITALS: PULSE 81; RESP 20; O2SAT 95
[2024-01-03 20:57] LABS: Bacteria 1+ /hpf (None Seen); Squamous Epithelial Cells - UA 5-10 SEEN /hpf (5-10); White Blood Cells 10-25 SEEN /hpf (0-5)
[2024-01-03 21:00] VITALS: BP 161/94; PULSE 76; RESP 24; O2SAT 94
--- NOTE | 2024-01-03 21:23 | PCM.HP.STD ---
[facility] - General General Date of Admission: 01/03/24 Date of Service: 01/03/24 Chief Complaint: Slurred Speech. HPI Narrative TASHA MCNALLY, is a 78 F with a past medical history of essential hypertension, hyperlipidemia, obesity; with BMI of 39.5 this admission, PVD; with venous insufficiency and varicose veins; s/p previous vein stripping with chronic swelling of both lower extremities, history of SLE, CKD; stage III-IV, history of allergy-induced asthma, history of BPPV; on prn meclizine, history of admission here in November 2022 for treatment of Clostridium difficile Colitis complicated by simultaneous LLE cellulitis, UTI and oral herpes outbreak with head CT done that admission for dizziness incidentally noting previous remote Left cerebellar CVA and cerebral microvasculopathy but she denied noticing any stroke-like symptoms that corresponded to the MRI findings and OA: with chronic Left knee pain limiting her mobility history of recent suspected TIA with garbled speech a few weeks ago that lasted ~15 minutes while she was at her bank - but she did not seek medical attention at that time because her symptoms completely resolved who presents to [facility] ER complaining of another episode of slurred speech. Mrs Mcnally reports her symptoms began approximately ~1:30 PM while she was standing outside talking to her neighbor about the 31 of December celebration and she then realized her neighbor could not understand her. Her speech was garbled ~15 minutes and then resolved but her activated EMS because he also suspected she was also having mild Left facial droop along with mild Left-sided weakness with concern for evolving CVA but the patient state she did not notice any Left-sided weakness. She denies recent head trauma, associated headache, visual changes, other focal sensory or motor deficits, other recent illness or medication changes. She is already taking a baby aspirin daily and is only on vitamin D3, Fluticasone daily and prn meclizine with no recent exposure to heparin or other anticoagulants. There is no report of fever, chills, nausea, vomiting, diarrhea, constipation and she otherwise denies a history of TIA/CVA or history of low platelet counts. In the ER she was noted to have a Head CT that was negative for acute pathologic changes resulting in a diagnosis of suspected TIA complicated by incidentally-noted Severe Thrombocytopenia of 28K present on admission worrisome for possible reactivation of Lupus compounded by a UA positive for acute cystitis; without hematuria and she was then admitted to the PCU under observation status for ongoing care for a stay that is expected to be less than 2 midnights. [facility] Medical History Lacunar infarction Cerebral microvasculopathy Thickened endometrium Varicose veins of both lower extremities Remote history of stroke Synovial cyst of left popliteal space Vitamin D deficiency Mixed hyperlipidemia Lupus Lung nodules Impaired fasting glucose Hypersomnia CKD (chronic kidney disease) stage 3, GFR 30-59 ml/min Breast density Allergy-induced asthma Abnormal EKG Wears glasses Post-menopausal Arthritis History of renal disease High cholesterol History of Clostridium difficile infection Non-smoker History of edema Venous insufficiency of both lower extremities Peripheral vascular insufficiency Edema of both lower legs Traumatic open wound of lower leg with infection Cerebellar stroke Dizziness Left leg cellulitis HTN (hypertension) C. difficile colitis Diarrhea Left leg cellulitis Leukocytosis CEASAR (acute kidney injury) Home Medications ?Medication ?Instructions ?Recorded ?Last Taken ?Type cholecalciferol (vitamin D3) 50 50 mcg PO DAILY 08/06/23 Unknown History mcg (2,000 unit) capsule (Vitamin D3) aspirin 81 mg chewable tablet 81 mg PO DAILY 08/20/23 09/04/23 History Allergy/AdvReac Type Severity Reaction Status Date / Time fexofenadine (From Mar) Allergy Hives Verified 01/03/24 18:38 montelukast (From Singulair) AdvReac Intermediate Rash Verified 01/03/24 18:38 Family History Mother , throat and tongue Cancer Father , 92 Diabetes CVA (cerebral vascular accident) Other Breast cancer Hodgkin's disease Kidney disease Rheumatoid arthritis Surgical History Hx of laparoscopy Hx of local excision of skin lesion (~05/1999) Hx of breast biopsy H/O vein stripping Social History household members: spouse housing: house Smoking Status: Never smoker alcohol intake: never substance use type: does not use ROS ROS Narrative Review of systems: General: Patient denies fever or chills. HENT: Denies headache, denies stuffy nose, denies sore throat EYES: Denies changes in vision or discharge from eyes Resp: Denies cough, denies shortness of breath Cardiac: Denies chest pain, palpitations or heart racing. GI: Denies abdominal pain, denies changes in bowel, denies nausea or vomiting : Denies changes in urination Extremity: Patient has chronic swelling of both lower extremities unchanged from previous. Musculoskeletal: Patient denies arthralgias or myalgias. Neuro: Patient admits to transient slurred speech lasting approximately 15 minutes before resolving spontaneously. She denies headaches, paresthesias or other focal neurologic deficits. Heme: Denies any bleeding or bruising Skin: Denies rashes Psychiatric: No complaints voiced related to uncontrolled depression or anxiety. Endocrine: No polyuria, polydipsia or polyphagia. The rest of the 14 point ROS was negative except for positives in HPI. Vital Signs Vital Signs Vital Signs: 01/03/24 18:38 01/03/24 20:42 01/03/24 21:00 Temperature 98.1 F Temperature Source Oral Pulse Rate 73 81 76 Respiratory Rate 11 L 20 H 24 H Blood Pressure 141/80 H 161/94 H Blood Pressure Mean 100 116 Pulse Ox 95 95 94 Oxygen Delivery Method Room Air Room Air Room Air Weight Weight: 237 lb 7.005 oz Body Mass Index (BMI) 39.4 Physical Exam Const alert, oriented x3, no apparent distress and healthy appearing Constitutional Narrative: Patient is morbidly obese. General Appearance: cooperative HEENT normocephalic, head/scalp atraumatic, hearing grossly normal bilaterally and moist oral mucous membranes Eyes PERRL and EOMs intact bilaterally Neck no lymphadenopathy and supple Resp normal respiratory effort, no retractions, no use of accessory muscles and clear to auscultation bilaterally Cardio regular rate and regular rhythm GI normal to inspection, nondistended, normoactive bowel sounds, soft to palpation, non-tender and non-distended GI Narrative: Morbidly obese. Extremity Extremity Narrative: Patient has evidence of chronic venous stasis of both lower extremities with associated mild edema. Skin Skin Narrative: Patient has no evidence of jaundice, rash or abscess. Neuro oriented x3, CN's II-XII intact bilaterally, moves all extremities and no focal motor deficits Sensorium / Orientation: awake, alert, oriented to person, oriented to place and oriented to time Speech: speech normal Motor Exam: strength 5/5 throughout Psych affect normal Results Medical Records Data Attestation: I reviewed the patient's medical records Lab / Micro Data Attestation: I reviewed the patient's lab results. 01/03/24 19:10 01/03/24 19:10 Labs: Laboratory Results - last 24 hr 01/03/24 19:10: WBC 8.3, RBC 5.79 H, Hgb 15.3 H, Hct 49.3 H, MCV 85.1, MCH 26.4 L, MCHC 31.0 L, RDW Std Deviation 45.6 H, RDW Coeff of Joya 15.1 H, Plt Count 28 L*, MPV TNP, Immature Gran % (Auto) 0.500, Neut % (Auto) 42.0 L, Lymph % (Auto) 28.1, Cotton % (Auto) 13.2 H, Eos % (Auto) 15.0 H, Baso % (Auto) 1.2 H, Absolute Neuts (auto) 3.5, Absolute Lymphs (auto) 2.34, Nucleated RBC % 0.2, Differential Comment , Diff Path Review October, Sodium 140, Potassium 4.5, Chloride 109 H, Carbon Dioxide 27.0, Anion Gap 4 L, BUN 14, Creatinine 1.22 H, Estim Creat Clear Calc 47.86, Est GFR (MDRD) Af Amer 55 L, Est GFR (MDRD) Non-Af 46 L, BUN/Creatinine Ratio 11.5, Glucose 104, Calcium 8.1 L 01/03/24 20:20: Urine Color Yellow, Urine Clarity Sl. Cloudy, Urine pH 5.0, Ur Specific Wilmont 1.020, Urine Protein 30 H, Urine Glucose (UA) Normal, Urine Ketones 5 H, Urine Occult Blood Negative, Urine Nitrite Negative, Urine Bilirubin Negative, Urine Urobilinogen 1 H, Ur Leukocyte Esterase 500 H, Urine RBC 0 SEEN, Urine WBC 10-25 SEEN, Ur Squamous Epith Cells 5-10 SEEN, Urine Bacteria 1+, Urine Mucus 0 SEEN Imaging Radiology Impression Head/Neck CTA 01/03/24 18:53 IMPRESSION: Negative CTA carotid and CTA brain. Electronically Signed: Reese Alvarez MD at 21:02 EDT , Chest X-Ray 01/03/24 19:27 IMPRESSION: No radiographic evidence of acute cardiopulmonary disease. Electronically Signed: Reese Alvarez MD at 20:48 EDT , [facility] Imaging Services [address] [place] [id number] Abdomen/Pelvis without Cont MR#: [id number] Acct: [id number] Name: TASHA MCNALLY Rep #: [id number] : 1945 F 78 From: Braydon Vasquez MD PCP: Dr. Frank Salinas MD Status: ADM LEOPOLDO Study: Abdomen/Pelvis without Cont Date of Exam: 01/03/24 Exam# [id number] Ordering Dr: Damian Al DO INDICATION: Severe thrombocytopenia, evaluate for splenomegaly EXAMINATION: CT ABDOMEN AND PELVIS WITHOUT CONTRAST - CT Abdomen And Pelvis W/O Contrast Injection TECHNIQUE: Helically acquired images were obtained of the abdomen and pelvis without oral or IV contrast. A radiation dose optimization technique was used for this scan. IV Contrast dosage and agent: None. Oral contrast: None. COMPARISON: February 27, 2023. FINDINGS: LOWER CHEST: Lung bases are clear. No cardiomegaly or pericardial effusion. LIVER: Homogeneous. No focal mass. GALLBLADDER AND BILIARY TREE: No calcified gallstones. No gallbladder distension or wall edema. No intra- or extrahepatic biliary ductal dilation. PANCREAS: No focal cystic or solid mass. SPLEEN: Normal size without focal cystic or solid mass. ADRENAL GLANDS: No nodules. KIDNEYS AND URETERS: Normal renal size and position. No hydronephrosis. PERITONEUM: Negative mesenteric appearance with numerous subcentimeter nonspecific lymph nodes. No ascites or free air. No other fluid collection. BOWEL: Minimal hiatal hernia. No acute gastric finding. No small bowel distention or focal wall thickening. Normal appendix. No acute colonic finding. LYMPH NODES: No enlarged mesenteric or retroperitoneal lymph nodes. VESSELS: Aortic atherosclerosis without ectasia. URINARY BLADDER: Contrast-filled renal collecting system and bladder.. REPRODUCTIVE ORGANS: Calcified fibroid uterus. No evidence of adnexal mass.. ABDOMINAL WALL: Small fat-containing umbilical hernia without inflammation. No discrete abdominal or pelvic wall hernia. BONES: No lytic or blastic abnormality. CT/Abdomen/Pelvis without Cont IMPRESSION: No evidence of splenomegaly Chronic velasquez mesentery with numerous subcentimeter lymph nodes that are mildly increased in size from prior exam, possibly secondary to panniculitis. Lymphoproliferative process less likely. Consider 6 month follow-up CT Electronically Signed: Braydon Vasquez MD at 5:25 EDT , CC: Dr. Damian Al DO; Dr. Frank Salinas MD ~ Business Support Coordinator: Signed Assessment & Plan Assessment/Plan (1) TIA (transient ischemic attack): (2) Remote history of stroke: (3) Thrombocytopenia: (4) Acute cystitis without hematuria: (5) Mixed hyperlipidemia: (6) History of lupus: PLAN: Plan 1. TIA; with transient slurred speech lasting approximately 15 minutes and recent similar episode approximately 1 week ago in the setting of known previous Left cerebellar CVA - Admit to PCU under observation status. Continue baby aspirin daily plus add statin. Check MRI of the brain to evaluate for possible underlying CVA. Check carotid Doppler to evaluate for stenosis. Check echocardiogram to evaluate LVEF. Finally, we will consult [facility] tel[facility]rology to see this patient this admission for further recommendations with help appreciated in advance. 2. Severe Thrombocytopenia of 28K present on admission worrisome for possible reactivation of Lupus complicating #1 - Check ESR and CRP to take measure of patient's inflammatory markers plus check CHRIS panel. Transfuse in case of significant bleeding or if her platelet count falls below [address] noted above suggesting possible lymphoproliferative process but no splenomegaly. Finally, we will consult credit operations specialist on-call to see this patient on rounds in the a.m. for further recommendations with help appreciated in advance. 3. UA positive for acute cystitis; without hematuria compounding #1 & #2 - Start Rocephin 1 g IV daily and await culture and sensitivity data. Give Tylenol as needed pain or fever. 4. History of admission here in November 2022 for treatment of Clostridium difficile Colitis complicated by simultaneous LLE cellulitis, UTI and oral herpes outbreak with head CT done that admission for dizziness incidentally noting previous remote Left cerebellar CVA and cerebral microvasculopathy but she denied noticing any stroke-like symptoms that corresponded to the MRI findings - Noted. 5. Essential hypertension - Patient is currently not on any antihypertensive agents with no plans to start at this time to allow for 'permissive hypertension' until CVA definitively ruled out on MRI. 6. Hyperlipidemia - Patient was not on statin or other anti-hyperlipidemic agent at time of admission. Check lipid profile. 7. Obesity; with a BMI of 39.5 this admission - Weight loss will be recommended. Check TSH in light of #1. This complicates her case and may hamper her recovery. 8. PVD; with venous insufficiency and varicose veins; s/p previous vein stripping with chronic swelling of both lower extremities - Noted. 9. CKD; stage III-IV - Patient noted to have normal BUN and creatinine with an estimated GFR of 46 mL/min present on admission. 10. History of allergy-induced asthma - Stable with no evidence of flare at this time. 11. History of BPPV; on as needed meclizine - Resume as needed meclizine as previous if vertigo symptoms develop. 12. OA: with chronic Left knee pain limiting her mobility - Noted. 13. DVT prophylaxis - Chemoprophylaxis is contraindicated due to thrombocytopenia noted above in #2. SCDs will also be held to prevent further potential decrease in her platelet count. Total time: Approximately 85 minutes. Charges/Coding Visit Charges OBSV E&M: 95903 Observ/hosp same date L2
[2024-01-03 22:00] VITALS: BP 156/78; PULSE 74; RESP 18; TEMP 36.4; O2SAT 96
--- NOTE | 2024-01-03 22:20 | ECHOD_ITS ---
Reason For Study: TIA/CVA Procedure This was a 2D Doppler, Color Flow transthoracic echocardiogram. Exam performed portable in patient room. Left Ventricle Normal LV size. Left ventricular systolic function is normal. The left ventricular ejection fraction is 60 %. No regional wall motion abnormalities noted. Right Ventricle Normal RV size. Normal systolic function. Atria Normal left atrium. Normal right atrium. Bubble contrast study negative for right to left interatrial shunt. Mitral Valve Normal mitral valve. Tricuspid Valve Normal tricuspid valve. Mild (1+) tricuspid valve insufficiency. Pulmonary artery systolic pressure is 33 mmHg. Aortic Valve Trisinus/trileaflet aortic valve. Great Vessels Normal aortic root. The pulmonary artery is normal size. Normal inferior vena cava. Pericardium/Pleural No pericardial effusion. Medication Performed a rapid injection of agitated mix of 9 cc saline and 1cc air to assess for atrial septal defect. MMode/2D Measurements & Calculations LVIDd: 4.6 cm IVSd: 1.4 cm LVOT diam: 2.0 cm LVIDs: 2.8 cm LVPWd: 1.1 cm LVOT area: 3.1 cm2 RVDd: 3.4 cm FS: 39.2 % Ao root diam: 3.5 cm LAV(MOD-bp): 44.0 ml LA A4 area: 15.1 cm2 LA dimension: 4.5 cm LAV(MOD-bp) Indexed: 20.9 ml/m2 LAV(MOD-sp2): 45.5 ml LAV(MOD-sp4): 38.3 ml RA A4 area: 15.1 cm2 Time Measurements MV dec time: 0.25 sec Doppler Measurements & Calculations MV E max kalen: 67.4 cm/sec Lat Peak E' Kalen: 13.0 cm/sec Med Peak E' Kalen: 11.1 cm/sec MV A max kalen: 99.8 cm/sec E/E' lat: 5.2 E/E' med: 6.1 MV E/A: 0.68 MV V2 max: 134.8 cm/sec MV P1/2t max kalen: 115.2 cm/sec Ao V2 max: 154.5 cm/sec MV max P.3 mmHg MV P1/2t: 91.9 msec Ao max P.5 mmHg MV V2 mean: 67.0 cm/sec MV dec slope: 367.0 cm/sec2 Ao V2 mean: 107.1 cm/sec MV mean P.2 mmHg Ao mean P.1 mmHg MV V2 VTI: 40.7 cm MVA(P1/2t): 2.4 cm2 Ao V2 VTI: 32.2 cm MVA(VTI): 2.1 cm2 AV (velocity ratio): 0.84 SHARA(I,D): 2.6 cm2 SHARA(V,D): 2.4 cm2 LV V1 max: 118.5 cm/sec SV(LVOT): 83.9 ml PA V2 max: 74.3 cm/sec LV V1 max P.6 mmHg LV V1 mean P.8 mmHg LV V1 mean: 79.1 cm/sec LV V1 VTI: 27.1 cm TR max kalen: 269.6 cm/sec TR max P.1 mmHg ECHO/Echo Complete Interpretation Summary Normal LV size. Left ventricular systolic function is normal. The left ventricular ejection fraction is 60 %. Pulmonary artery systolic pressure is 33 mmHg. Bubble contrast study negative for right to left interatrial shunt. Ordering Physician: Damian Al Performed By: Dayne Grimm and Student
[2024-01-03 22:34] VITALS: BMI 38.5
[2024-01-03 22:43] VITALS: BP 151/77; PULSE 82; RESP 18; TEMP 36.6; O2SAT 95
[2024-01-03] MEDS: 0.9% Normal Saline (1000mL) 1,000 ML 50 ML IV (22:47)
[2024-01-03 23:01] LABS: Hemoglobin A1c 5.8 % (3.8-5.6)
[2024-01-03 23:03] LABS: Thyroid Stim Hormone (TSH) 3.96 uIU/mL (0.358-3.74)
[2024-01-03] MEDS: Ceftriaxone 1 GM/50 ML BAG IV (23:23)
--- NOTE | 2024-01-03 23:39 | CT_ITS ---
INDICATION: Severe thrombocytopenia, evaluate for splenomegaly EXAMINATION: CT ABDOMEN AND PELVIS WITHOUT CONTRAST - CT Abdomen And Pelvis W/O Contrast Injection TECHNIQUE: Helically acquired images were obtained of the abdomen and pelvis without oral or IV contrast. A radiation dose optimization technique was used for this scan. IV Contrast dosage and agent: None. Oral contrast: None. COMPARISON: February 27, 2023. FINDINGS: LOWER CHEST: Lung bases are clear. No cardiomegaly or pericardial effusion. LIVER: Homogeneous. No focal mass. GALLBLADDER AND BILIARY TREE: No calcified gallstones. No gallbladder distension or wall edema. No intra- or extrahepatic biliary ductal dilation. PANCREAS: No focal cystic or solid mass. SPLEEN: Normal size without focal cystic or solid mass. ADRENAL GLANDS: No nodules. KIDNEYS AND URETERS: Normal renal size and position. No hydronephrosis. PERITONEUM: Negative mesenteric appearance with numerous subcentimeter nonspecific lymph nodes. No ascites or free air. No other fluid collection. BOWEL: Minimal hiatal hernia. No acute gastric finding. No small bowel distention or focal wall thickening. Normal appendix. No acute colonic finding. LYMPH NODES: No enlarged mesenteric or retroperitoneal lymph nodes. VESSELS: Aortic atherosclerosis without ectasia. URINARY BLADDER: Contrast-filled renal collecting system and bladder.. REPRODUCTIVE ORGANS: Calcified fibroid uterus. No evidence of adnexal mass.. ABDOMINAL WALL: Small fat-containing umbilical hernia without inflammation. No discrete abdominal or pelvic wall hernia. BONES: No lytic or blastic abnormality. CT/Abdomen/Pelvis without Cont IMPRESSION: No evidence of splenomegaly Chronic velasquez mesentery with numerous subcentimeter lymph nodes that are mildly increased in size from prior exam, possibly secondary to panniculitis. Lymphoproliferative process less likely. Consider 6 month follow-up CT Electronically Signed: Braydon Vasquez MD at 5:25 EDT Reading Location ID and State: [facility] / [place] Tel , Service support ,
[2024-01-03 23:47] LABS: CRP, High Sensitivity Cardiac 9.45 mg/L
[2024-01-04] VITALS (9 sets, daily range): BP systolic 104–136; BP diastolic 59–74; PULSE 72–81; RESP 17–18; TEMP 36.4–36.8; O2SAT 87–95; BMI 38.5
[2024-01-04 01:30] LABS: Erythrocyte Sedimentation Rate 9 mm/hr (0-30)
[2024-01-04 06:29] LABS: Cholesterol 150 mg/dL (200); High Density Lipoprotein 24 mg/dL; Triglycerides 267 mg/dL; Very Low Density Lipoprotein 53 mg/dL (5-40)
--- NOTE | 2024-01-04 07:41 | PN.HOSP_ITS ---
Reason for Visit Reason for Visit: Diagnoses Thrombocytopenia, unspecified (01/03/24) Mixed hyperlipidemia (01/03/24) Transient cerebral ischemic attack, unspecified (01/03/24) Acute cystitis without hematuria (01/03/24) Personal history of transient ischemic attack (TIA), and cerebral infarction without residual deficits (01/03/24) Objective Data Objective Data Vital Signs: Vital Signs Temp Pulse Resp BP Pulse Ox O2 Del Method O2 Flow Rate 97.5 F L 75 18 119/66 91 Room Air 2 01/04/24 06:25 01/04/24 06:25 01/04/24 06:25 01/04/24 06:25 01/04/24 07:20 01/04/24 07:20 01/04/24 06:25 Oxygen Flow Rate (L/min) 2 Oxygen Delivery Method Room Air Weight: 231 lb 7.766 oz Body Mass Index (BMI) 38.5 Intake & Output: Intake and Output for Last 24 Hours 01/02/24 01/03/24 01/04/24 23:59 23:59 23:59 Intake Total 530 / 530 Balance 530 / 530 Lab / Micro Data 01/04/24 05:30 01/04/24 05:30 Labs: Laboratory Results - last 24 hr 01/03/24 19:10: WBC 8.3, RBC 5.79 H, Hgb 15.3 H, Hct 49.3 H, MCV 85.1, MCH 26.4 L, MCHC 31.0 L, RDW Std Deviation 45.6 H, RDW Coeff of Joya 15.1 H, Plt Count 28 L*, MPV TNP, Immature Gran % (Auto) 0.500, Neut % (Auto) 42.0 L, Lymph % (Auto) 28.1, [place] % (Auto) 13.2 H, Eos % (Auto) 15.0 H, Baso % (Auto) 1.2 H, Absolute Neuts (auto) 3.5, Absolute Lymphs (auto) 2.34, Nucleated RBC % 0.2, Differential Comment , Diff Path Review October, Sodium 140, Potassium 4.5, Chloride 109 H, Carbon Dioxide 27.0, Anion Gap 4 L, BUN 14, Creatinine 1.22 H, Estim Creat Clear Calc 47.86, Est GFR (MDRD) Af Amer 55 L, Est GFR (MDRD) Non-Af 46 L, BUN/Creatinine Ratio 11.5, Glucose 104, H emoglobin A1c 5.8 H, Calcium 8.1 L, C-React Prot High Sens 9.45 H, TSH 3.96 H 01/03/24 20:20: Urine Color Yellow, Urine Clarity Sl. Cloudy, Urine pH 5.0, Ur Specific Osborn 1.020, Urine Protein 30 H, Urine Glucose (UA) Normal, Urine Ketones 5 H, Urine Occult Blood Negative, Urine Nitrite Negative, Urine Bilirubin Negative, Urine Urobilinogen 1 H, Ur Leukocyte Esterase 500 H, Urine RBC 0 SEEN, Urine WBC 10-25 SEEN, Ur Squamous Epith Cells 5-10 SEEN, Urine Bacteria 1+, Urine Mucus 0 SEEN 01/04/24 00:45: ESR 9, Blood Type A POSITIVE, Antibody Screen NEGATIVE 01/04/24 05:30: Triglycerides 267 H, Cholesterol 150, LDL Cholesterol 73, VLDL Cholesterol 53 H, HDL Cholesterol 24 L Radiography Diagnostic Testing: Radiology Impression Head/Neck CTA 01/03/24 18:53 IMPRESSION: Negative CTA carotid and CTA brain. Electronically Signed: Reese Alvarez MD at 21:02 EDT , Chest X-Ray 01/03/24 19:27 IMPRESSION: No radiographic evidence of acute cardiopulmonary disease. Electronically Signed: Reese Alvarez MD at 20:48 EDT , Abdomen/Pelvis CT 01/03/24 23:39 IMPRESSION: No evidence of splenomegaly Chronic velasquez mesentery with numerous subcentimeter lymph nodes that are mildly increased in size from prior exam, possibly secondary to panniculitis. Lymphoproliferative process less likely. Consider 6 month follow-up CT Electronically Signed: Braydon Vasquez MD at 5:25 EDT , Physical Exam Narrative Seen and examined. Patient admitted with slurred speech/mild language deficit noticed by yesterday. As per she was also not using left upper and lower extremity, confused did not know how to use walker and had problem in balance and disequilibrium. Symptoms had resolved. Chronic leg swelling. Physical exam General: Alert, Oriented x3, Cooperative. Obesity grade 2 BMI 38.5 kg/m? HEENT: Atraumatic, PERRLA, EOMI, Normocephalic Oral: No Gingival or Mucosal Lesions/ Ulcerations Neck: Supple, No JVD, Negative Carotid Bruits Chest wall/Lungs: Air entry diminished in bilateral lung bases. No crepitation/rhonchi Cardiovascular: Regular rate, Regular Rhythm, Normal S1, Normal S2, No M/G/R Abdomen: Bowel Sounds Present, Soft, Non Tender, Non-Distended : No dysuria. No renal angle tenderness. No suprapubic tenderness. Extremities: No edema, Capillary Refill Less than 3 Seconds Skin: No rashes, No breakdown Musculoskeletal: No Tenderness to Palpation of Joints or Extremities. ROM decreased due to degenerative arthritis of knees and hips. Neurological: Cranial nerves II-XII grossly intact, DTR 2+/4. No acute focal neurological deficit. NIH scale is 0. Psych/Mental Status: Flat affect, mild forgetfulness of common things, names of the relative and places. Possible MCI Assessment & Plan Assessment/Plan (1) TIA (transient ischemic attack): (2) Thrombocytopenia: (3) Mixed hyperlipidemia: (4) History of lupus: PLAN: Plan 78-year-old gentleman was admitted with an episode of language deficit/slurred speech, lasted about 15 minutes that occurred at 1:30 PM on day of on 01/03/2024 while she was standing outside talking to her neighbor and then it spontaneously resolved. Her neighbor was not able to understand her speech. Patient reports similar episode of garbled speech few weeks ago that lasted for less than 150 minutes. Then evening, patient's thought she had left-sided weakness for which she was brought to ED by EMS but patient does not recall feeling weak on the left side. Her symptoms have not resolved by the time she came to ED 1. TIA;- Admit to PCU under observation status. Continue high intensity high- dose statin. Patient not candidate of aspirin anticoagulant or other antiplatelet agent due to severe thrombocytopenia. MRI is ordered. CT head and neck reported christy. Therefore does not need carotid Doppler. 2D echo is ordered. [facility] neurology consult. NIH stroke scale is 0. 2. Severe Thrombocytopenia of 28K present on admission, unclear etiology: Patient platelet count has been decreasing November 2022 when it was around 299,000. Gradually decreased to 1 86,000 on 02/27/2023. On admission 28,010 today 27,000. Heme-onc is consulted. Multiple differential including autoimmune or thromboembolic cause or inflammatory. Lupus has been seen in past medical history but patient denies having any severe symptoms or clinical findings. She said she had 2000 swelling of her left knee or leg but denies any inflammatory polyarthropathy, pericarditis, pleuritis or abdominal pain or rash but definitely it might be in differential. She is also on baby aspirin at home and her platelet count has been gradually decreasing but was normal about a year ago till now. CRP elevated but ESR normal. D-dimer high. PT 14.2, INR 1.1 PTT 29.3. Fibrinogen 264. Thrombin time pending. Antiphospholipid antibodies are ordered but pending. CTPA not ordered patient did not had symptoms related to PE chest pain, tachycardia, shortness of breath, immobilization and modified Wells criteria for PE is 0. Venous duplex lower extremities ordered as patient has bilateral venous edema/varicose vein. Patient not candidate for antiplatelet or anticoagulant agent. 3. Abnormal; without hematuria -UA shows WBC 10-25 cells, squamous epithelial 5-10 cells (U/A sample not valid) nitrite negative LE 500. Denies nonintact symptoms including dysuria recently. On empiric ceftriaxone pending urine culture. Clinically does not seem UTI. 4. History of admission here in November 2022 for treatment of Clostridium difficile Colitis complicated by simultaneous LLE cellulitis, UTI and oral herpes outbreak with head CT done that admission for dizziness incidentally noting previous remote Left cerebellar CVA and cerebral microvasculopathy but she denied noticing any stroke-like symptoms that corresponded to the MRI findings - Noted. 5. Essential hypertension - Patient is currently not on any antihypertensive agents with no plans to start at this time to allow for 'permissive hypertension' until CVA definitively ruled out on MRI. 6. Hyperlipidemia - Patient was not on statin or other anti-hyperlipidemic agent at time of admission. Check lipid profile. 7. Obesity; with a BMI of 39.5 this admission - Weight loss will be recommended. Check TSH in light of #1. This complicates her case and may hamper her recovery. 8. PVD; with venous insufficiency and varicose veins; s/p previous vein stripping with chronic swelling of both lower extremities - Noted. 9. CKD; stage III-IV - Patient noted to have normal BUN and creatinine with an estimated GFR of 46 mL/min present on admission. 10. History of allergy-induced asthma - Stable with no evidence of flare at this time. 11. History of BPPV; on as needed meclizine - Resume as needed meclizine as previous if vertigo symptoms develop. 12. OA: with chronic Left knee pain limiting her mobility - Noted. 13. DVT prophylaxis - Chemoprophylaxis is contraindicated due to thrombocytopenia. SCDs will also be held to prevent further potential decrease in her platelet count. . Total time of the visit including total time spent in counseling or coordination of care, (more than 50% of the total time, spent in obtaining medical information from nurses and other ancillary care providers,explaining to the patient about labs, imaging, diagnosis and management of active complex medical conditions), DO multiple active problems including TIA, thrombocytopenia, abnormal UA, heme-onc and neurology consult, review of labs and imaging, discussion with patient and clinical update is 40 minutes. Clinical Impression(s) from Imaging Studies Head/Neck CTA 01/03/24 18:53 IMPRESSION: Negative CTA carotid and CTA brain. Electronically Signed: Reese Alvarez MD at 21:02 EDT , Chest X-Ray 01/03/24 19:27 IMPRESSION: No radiographic evidence of acute cardiopulmonary disease. Electronically Signed: Reese Alvarez MD at 20:48 EDT , Abdomen/Pelvis CT 01/03/24 23:39 IMPRESSION: No evidence of splenomegaly Chronic velasquez mesentery with numerous subcentimeter lymph nodes that are mildly increased in size from prior exam, possibly secondary to panniculitis. Lymphoproliferative process less likely. Consider 6 month follow-up CT Electronically Signed: Braydon Vasquez MD at 5:25 EDT , Charges/Coding Visit Charges Inpatient E&M: 50259 Subs Hosp L3
[2024-01-04 10:27] LABS: Absolute Lymphocyte Count 2.53 X10^3/uL (0.83-4.51); Absolute Neutrophil Count 3.6 X10^3/uL (2.0-7.7); Basophil# 0.09 X10^3/uL; Basophil% 1.1 % (0-1); Eosinophil# 0.89 X10^3/uL; Eosinophils% 10.8 % (0-5); Hematocrit 47.1 % (37-47); Hemoglobin 14.4 g/dL (12.0-15.0); Lymphocyte # 2.53 X10^3/ul (0.83-4.51); Lymphocyte % 30.6 % (19-41); Mean Corp Hgb Conc 30.6 g/dL (32-36); Mean Corpuscular Hgb 26.5 pg (27.0-32.0); Mean Corpuscular Volume 86.6 fL (81-99); Monocyte# 1.16 X10^3/uL; NRBC Flagged by Analyzer 0.2 % (0-5); Neutrophil # 3.58 X10^3/uL (2.7-7.7); Neutrophil % 43.3 % (47-70); POSITIVE COUNT YES; RBC Distribution Width CV 15.2 % (11.6-14.6); RBC Distribution Width SD 47.5 fl (35.1-43.9); Red Blood Count 5.44 M/mm3 (4.2-5.4); White Blood Count 8.3 K/mm3 (4.4-11.0)
[2024-01-04 10:35] LABS: ALB/GLOB Ratio 0.7 RATIO (0.9-2.4); AST(SGOT) 15 U/L (15-37); Alanine Aminotransfer ALT/SGPT 16 U/L (13-56); Albumin, Serum 2.4 g/dL (3.2-5.0); Alkaline Phosphatase 48 U/L (45-117); Anion Gap 8 (5-15); BUN 12 mg/dL (7-18); BUN/Creat Ratio 11.4 RATIO (10-20); Chloride 109 mmol/L (98-107); Creatinine, Serum 1.05 mg/dL (0.55-1.02); EST Glomerular Filtration Rate 54 mL/min (>60); Est Glom Filt Rate - Afr Amer 66 mL/min (>60); Estimated Creatinine Clearance 54.83 ml/min; Globulin 3.5 g/dL (2.2-4.2); Glucose 105 mg/dL (74-106); LDH 143 U/L (84-246); Potassium 4.4 mmol/L (3.5-5.1); Protein, Total 5.9 g/dL (6.4-8.2); Sodium Level 141 mmol/L (136-145)
[2024-01-04 10:40] LABS: Differential Indicated SCAN CRITERIA MET; Platelet Count 27 K/mm3 (150-450)
[2024-01-04] MEDS: Cholecalciferol (VIT D3) 25 MCG TABLET (1,000 UNITS) 50 MCG PO (11:04)
[2024-01-04] MEDS: Lactobacillis Acidophilus 2 CAP PO ×2 (11:04→20:45)
[2024-01-04 11:05] LABS: International Normalized Ratio 1.1; Prothrombin Time (Protime)PT. 14.2 SECONDS (11.7-14.9)
[2024-01-04 11:06] LABS: Fibrinogen 264 mg/dl (203-444); Partial Thromboplast Time 29.3 Seconds (24.1-36.2)
[2024-01-04 11:14] LABS: D-Dimer Quantitative (DVT/PE) 2.32 FEU/ug/m (0.27-0.49)
--- NOTE | 2024-01-04 11:20 | VDLE_ITS ---
Reason For Study: Elevated D-dimer RIGHT LEFT GSV is absent. GSV is absent. CFV is compressible, spontaneous, phasic, CFV is compressible, spontaneous, phasic, competent and demonstrates normal competent, and demonstrates normal augmentation. augmentation. FV is compressible, spontaneous, phasic, FV is compressible, spontaneous, phasic, competent and demonstrates normal competent and demonstrates normal augmentation. augmentation. POP V is compressible, spontaneous, phasic, POP V is compressible, spontaneous, phasic, competent and demonstrates normal competent and demonstrates normal augmentation. augmentation. T/P Trunk is compressible. T/P Trunk is compressible. PTV is compressible. PTV is compressible. RT PerV is compressible. LT PerV is compressible. Procedure This is a venous duplex using B-mode, color flow and spectral Doppler. Exam performed portable in patient room. A preliminary report was called and/or faxed to [facility]. VL/Venous Duplex US - Balaji Extrem Interpretation Summary Deep veins of the bilateral lower extremities are patent and compressible segme ntally. There is no evidence of bilateral lower extremity deep vein thrombosis. Ordering Physician: Reuben Hogan Referring Physician: Frank Salinas Performed By: Taina Zuleta RVT
[2024-01-04 11:40] LABS: Differential Comment SCANNED; Platelet Estimate MKD DEC (ADEQ)
--- NOTE | 2024-01-04 12:58 | CON.PCM.NE_ITS ---
Assessment and Plan: Stroke Assessment/Plan TASHA MCNALLY is a 78 F with a history of HTN HLD who presents for evaluation of transient slurred speech. She states she had an episode yesterday and another on December 31. Also some weakness of left hand when trying to walk with cane, she couldnt hold properly. Sx lasted about 15 min both days. Never had this before. She had a dx in her twenties of occular migraines, but she denies any K[place] currently. Neurological examination shows NIHSS 0. Neuroimaging shows CTH and CTA unremarkable. -? General: Laying comfortably in bed; in no acute distress. -? HENT: Normal oropharynx and mucosa. Normal external appearance of ears and nose. Exophthalmos. -? Neck: Supple, no pain or tenderness -? CV:? No peripheral edema. -? Pulmonary:? Normal respiratory effort. -? Ext: No cyanosis, edema, or deformity -? Skin: No rash. Normal palpation of skin.? -? Musculoskeletal: full range of motion; no joint tenderness. Normal digits and nails by inspection. No clubbing. -? NEURO: -? Mental Status: The patient was alert and oriented to time, place, and person. Normal recent/remote memory, concentration, and general fund of knowledge. -? Language: speech is .? Naming, repetition, fluency, and comprehension intact. -? Cranial Nerves: PERRL mm/brisk. EOMI, visual saleh full, no facial asymmetry, facial sensation intact, hearing intact, tongue midline, no evidence of atrophy or fibrillations. As performed by the nurse/ELVIS Sternocleidomastoid and trapezius were equally strong. Soft palate raises equally, no uvular deviations -? Motor: normal bulk, tone, and strength throughout. No pronator drift or satelliting. Upper and lower extremities equal bilaterally. -? Sensation- Intact to light touch bilaterally -? Coordination: No dysmetria on [id number], finger follow finger or [id number]. A/P TIA vs infectious encephalopathy -TIA: - Anti-platelet medication: Aspirin 81 mg daily. She cannot take ASA due to low platelets. Hemo onc consulted. TTE - If wnl normal DC on EM to look for pAF. If +, then recommend AC. Would clear with Hemonc if AC is ok in setting h low platelets. - Occupational/ Physical therapy consults - NPO until swallow evaluation. IVF until able to take po - DVT prophylaxis with SCDs and heparin SQ - Vascular risk factor modification. The following are the recommended guidelines: LDL Goal < 70 Smoking Cessation Diabetes Management medical terminologist blood pressure control should achieve <130/80 mmHg. BP management should aim to achieve residential control in a reasonable amount of time, taking into consideration the individual patient's requirements and characteristics. Weight Management: Goal for BMI is 18.5 -24.9 kg/m2 Alcohol: No more than 2 drinks/day for men or 1 drink/day for non- women - Promote lifestyle modification: weight control, physical activity, moderation of alcohol intake, moderate sodium intake. Followup with PCP in 1-2 weeks, and in Neurology clinic in 6-12 weeks HPI Consult Data Date of Consult: 01/04/24 HPI Narrative HPI Narrative: TASHA MCNALLY, is a 78 F who presents REPLACED BY [facility] Medical History Lacunar infarction Cerebral microvasculopathy Thickened endometrium Varicose veins of both lower extremities Remote history of stroke Synovial cyst of left popliteal space Vitamin D deficiency Mixed hyperlipidemia Lupus Lung nodules Impaired fasting glucose Hypersomnia CKD (chronic kidney disease) stage 3, GFR 30-59 ml/min Breast density Allergy-induced asthma Abnormal EKG Wears glasses Post-menopausal Arthritis History of renal disease High cholesterol History of Clostridium difficile infection Non-smoker History of edema Venous insufficiency of both lower extremities Peripheral vascular insufficiency Edema of both lower legs Traumatic open wound of lower leg with infection Cerebellar stroke Dizziness Left leg cellulitis HTN (hypertension) C. difficile colitis Diarrhea Left leg cellulitis Leukocytosis CEASAR (acute kidney injury) Home Medications ?Medication ?Instructions ?Recorded ?Last Taken ?Type cholecalciferol (vitamin D3) 50 50 mcg PO DAILY 08/06/23 Unknown History mcg (2,000 unit) capsule (Vitamin D3) aspirin 81 mg chewable tablet 81 mg PO DAILY 08/20/23 09/04/23 History Allergy/AdvReac Type Severity Reaction Status Date / Time fexofenadine (From Mar) Allergy Hives Verified 01/03/24 18:38 montelukast (From Singulair) AdvReac Intermediate Rash Verified 01/03/24 18:38 Family History Mother , throat and tongue Cancer Father , 92 Diabetes CVA (cerebral vascular accident) Other Breast cancer Hodgkin's disease Kidney disease Rheumatoid arthritis Surgical History Hx of laparoscopy Hx of local excision of skin lesion (~05/1999) Hx of breast biopsy H/O vein stripping Social History household members: spouse housing: house Smoking Status: Never smoker alcohol intake: never substance use type: does not use Vital Signs Vital Signs Vital Signs: 01/03/24 18:38 01/03/24 20:42 01/03/24 21:00 Temperature 98.1 F Temperature Source Oral Pulse Rate 73 81 76 Pulse Strength Respiratory Rate 11 L 20 H 24 H Respiratory Effort Respiratory Depth Respiratory Pattern Blood Pressure 141/80 H 161/94 H Blood Pressure Mean 100 116 Blood Pressure Source Blood Pressure Position Blood Pressure Location Pulse Ox 95 95 94 Oxygen Delivery Method Room Air Room Air Room Air Oxygen Flow Rate (L/min) 01/03/24 22:00 01/03/24 22:43 01/03/24 22:43 Temperature 97.6 F L 97.9 F 97.9 F Temperature Source Oral Oral Pulse Rate 74 82 82 Pulse Strength Respiratory Rate 18 18 18 Respiratory Effort Respiratory Depth Respiratory Pattern Blood Pressure 156/78 H 151/77 H 151/77 H Blood Pressure Mean 104 101 101 Blood Pressure Source Monitor Blood Pressure Position Semi-Fowlers Blood Pressure Location Right Arm Pulse Ox 96 95 95 Oxygen Delivery Method Room Air Room Air Oxygen Flow Rate (L/min) 01/03/24 23:00 01/04/24 02:20 01/04/24 02:30 Temperature 98.0 F Temperature Source Oral Pulse Rate 81 Pulse Strength Respiratory Rate 18 Respiratory Effort Normal Non-Labored Normal Non-Labored Respiratory Depth Normal Normal Respiratory Pattern Normal Normal Blood Pressure 136/59 H Blood Pressure Mean 84 Blood Pressure Source Monitor Blood Pressure Position Semi-Fowlers Blood Pressure Location Right Arm Pulse Ox 93 Oxygen Delivery Method Room Air Room Air Room Air Oxygen Flow Rate (L/min) 01/04/24 02:40 01/04/24 02:45 01/04/24 06:24 Temperature 97.5 F L Temperature Source Temporal Pulse Rate 77 Pulse Strength Respiratory Rate 18 Respiratory Effort Respiratory Depth Respiratory Pattern Blood Pressure 119/66 Blood Pressure Mean 83 Blood Pressure Source Monitor Blood Pressure Position Semi-Fowlers Blood Pressure Location Right Forearm Pulse Ox 87 95 95 Oxygen Delivery Method Room Air Nasal Cannula Nasal Cannula Oxygen Flow Rate (L/min) 2 2 01/04/24 06:25 01/04/24 07:20 01/04/24 10:00 Temperature 97.5 F L Temperature Source Temporal Pulse Rate 75 Pulse Strength Weak (1+) Respiratory Rate 18 Respiratory Effort Respiratory Depth Respiratory Pattern Blood Pressure 119/66 Blood Pressure Mean 83 Blood Pressure Source Blood Pressure Position Blood Pressure Location Pulse Ox 95 91 Oxygen Delivery Method Nasal Cannula Room Air Oxygen Flow Rate (L/min) 2 01/04/24 10:20 01/04/24 10:27 Temperature 97.7 F L Temperature Source Oral Pulse Rate 79 Pulse Strength Respiratory Rate 17 Respiratory Effort Respiratory Depth Respiratory Pattern Blood Pressure 104/74 Blood Pressure Mean 84 Blood Pressure Source Monitor Blood Pressure Position Semi-Fowlers Blood Pressure Location Left Arm Pulse Ox 93 Oxygen Delivery Method Room Air Oxygen Flow Rate (L/min) 2 Weight Weight: 105 kg Body Mass Index (BMI) 38.5 EEG Results Procedure Details EEG Procedure Details: NIHSS NIHSS Nursing Documentation NIHSS Nursing Documentation: NIHSS: Ischemic Stroke/TIA Start: 01/03/24 22:38 Text: For PCU Patients: NIH and Neuro Check every 4 Status: Active hours, PRN and with change in RN caregiver. Freq: [id number] Protocol: Activity Type Activity Date Activity User E-sign Co-sign Detail Recorded Client Recorded Date Recorded By Document 01/04/24 10:20 desktop 01/04/24 10:33 01/04/24 10:20 NIH Stroke Scale [NIHSS] A score of 0 is normal or asymptomatic . Total possible score is 42. Inpatient: RN or Physician to activate a stroke alert for onset of new stroke symptoms or with NIHSS increase >/= 3 points. Following change in neurological status, NIHSS will be performed per physician order or more frequently PRN. -1a. Level of Consciousness Alert; keenly responsive -1b. LOC Questions Answers BOTH questions correctly. -1c. LOC Commands Performs both tasks correctly . -2. Best Gaze Normal -3. Visual No visual loss -4. Facial Palsy Normal symmetrical movements -5a. Left Arm No drift; arm holds 90 (or 45 ) degrees for full 10 seconds -5b. Right Arm No drift; arm holds 90 (or 45 ) degrees for full 10 seconds -6a. Left Leg No drift; leg holds 30-degree position for full 5 seconds -6b. Right Leg No drift; leg holds 30-degree position for full 5 seconds -7. Limb Ataxia Absent -8. Sensory Normal; no sensory loss -9. Best Language No aphasia; normal -10. Dysarthria Normal -11. Extinction and Inattention No abnormality -Total 0 Query Text:A score of 0 is normal or asymptomatic. Total possible score is 42 . ED: Notify Physician for NIHSS increase by > / = 3 points. Inpatient: RN or Physician to activate a stroke alert for NIHSS increase of > / = 3 points. Coma Scale [Assess] -Eye Opening Spontaneous -Motor Obeys Commands -Verbal Oriented [Total] -Coma Scale Total 15 NIHSS 1a. Level of Consciousness: Alert; keenly responsive 1b. LOC Questions: Answers BOTH questions correctly. 1c. LOC Commands: Performs both tasks correctly. 2. Best Gaze: Normal 3. Visual: No visual loss 4. Facial Palsy: Normal symmetrical movements 5a. Left Arm: No drift; arm holds 90 (or 45) degrees for full 10 seconds 5b. Right Arm: No drift; arm holds 90 (or 45) degrees for full 10 seconds 6a. Left Leg: No drift; leg holds 30-degree position for full 5 seconds 6b. Right Leg: No drift; leg holds 30-degree position for full 5 seconds 7. Limb Ataxia: Absent 8. Sensory: Normal; no sensory loss 9. Best Language: No aphasia; normal 11. Extinction and Inattention: No abnormality Total: 0 Physical Exam Neuro Neuro Narrative: WNL Lab / Micro Data 01/04/24 05:30 01/04/24 05:30 Labs: Laboratory Results - last 24 hr 01/03/24 19:10: WBC 8.3, RBC 5.79 H, Hgb 15.3 H, Hct 49.3 H, MCV 85.1, MCH 26.4 L, MCHC 31.0 L, RDW Std Deviation 45.6 H, RDW Coeff of Joya 15.1 H, Plt Count 28 L*, MPV TNP, Immature Gran % (Auto) 0.500, Neut % (Auto) 42.0 L, Lymph % (Auto) 28.1, [place] % (Auto) 13.2 H, Eos % (Auto) 15.0 H, Baso % (Auto) 1.2 H, Absolute Neuts (auto) 3.5, Absolute Lymphs (auto) 2.34, Nucleated RBC % 0.2, Differential Comment , Diff Path Review October, Sodium 140, Potassium 4.5, Chloride 109 H, Carbon Dioxide 27.0, Anion Gap 4 L, BUN 14, Creatinine 1.22 H, Estim Creat Clear Calc 47.86, Est GFR (MDRD) Af Amer 55 L, Est GFR (MDRD) Non-Af 46 L, BUN/Creatinine Ratio 11.5, Glucose 104, Hemoglobin A1c 5.8 H, Calcium 8.1 L, C- React Prot High Sens 9.45 H, TSH 3.96 H 01/03/24 20:20: Urine Color Yellow, Urine Clarity Sl. Cloudy, Urine pH 5.0, Ur Specific [place]agon 1.020, Urine Protein 30 H, Urine Glucose (UA) Normal, Urine Ketones 5 H, Urine Occult Blood Negative, Urine Nitrite Negative, Urine Bilirubin Negative, Urine Urobilinogen 1 H, Ur Leukocyte Esterase 500 H, Urine RBC 0 SEEN, Urine WBC 10-25 SEEN, Ur Squamous Epith Cells 5-10 SEEN, Urine Bacteria 1+, Urine Mucus 0 SEEN 01/04/24 00:45: ESR 9, Blood Type A POSITIVE, Antibody Screen NEGATIVE 01/04/24 05:30: WBC 8.3, RBC 5.44 H, Hgb 14.4, Hct 47.1 H, MCV 86.6, MCH 26.5 L, MCHC 30.6 L, RDW Std Deviation 47.5 H, RDW Coeff of Joya 15.2 H, Plt Count 27 L* , Immature Gran % (Auto) 0.200, Neut % (Auto) 43.3 L, Lymph % (Auto) 30.6, [place] % (Auto) 14.0 H, Eos % (Auto) 10.8 H, Baso % (Auto) 1.1 H, Absolute Neuts (auto) 3.6, Absolute Lymphs (auto) 2.53, Nucleated RBC % 0.2, Differential Comment SCANNED, Diff Path Review October, Platelet Estimate MKD DEC, Sodium 141, Potassium 4.4, Chloride 109 H, Carbon Dioxide 24.0, Anion Gap 8, BUN 12, C reatinine 1.05 H, Estim Creat Clear Calc 54.83, Est GFR (MDRD) Af Amer 66, Est GFR (MDRD) Non-Af 54 L, BUN/Creatinine Ratio 11.4, Glucose 105, Calcium 8.0 L, Total Bilirubin 0.60, AST 15, ALT 16, Alkaline Phosphatase 48, Lactate Dehydrogenase 143, Total Protein 5.9 L, Albumin 2.4 L, Globulin 3.5, A lbumin/Globulin Ratio 0.7 L, Triglycerides 267 H, Cholesterol 150, LDL Cholesterol 73, VLDL Cholesterol 53 H, HDL Cholesterol 24 L 01/04/24 10:32: PT 14.2, INR 1.1, APTT 29.3, Fibrinogen 264, D-Dimer Quant (PE/DVT) 2.32 H*, Direct Antiglob Test NEG w/POLYSPECIFIC Imaging Radiology Impression Head/Neck CTA 01/03/24 18:53 IMPRESSION: Negative CTA carotid and CTA brain. Electronically Signed: Reese Alvarez MD at 21:02 EDT , Chest X-Ray 01/03/24 19:27 IMPRESSION: No radiographic evidence of acute cardiopulmonary disease. Electronically Signed: Reese Alvarez MD at 20:48 EDT , Abdomen/Pelvis CT 01/03/24 23:39 IMPRESSION: No evidence of splenomegaly Chronic velasquez mesentery with numerous subcentimeter lymph nodes that are mildly increased in size from prior exam, possibly secondary to panniculitis. Lymphoproliferative process less likely. Consider 6 month follow-up CT Electronically Signed: Braydon Vasquez MD at 5:25 EDT , Active Medications Active Medications Active Medications: Current Medications Generic Name Dose Route Start Last Admin Trade Name Freq PRN Reason Stop Dose Admin Acetaminophen 650 mg 01/03/24 22:38 Acetaminophen 325 Mg Tablet PO Q6H PRN PRN Pain 1-10 Or Fever>99.6 Atorvastatin Calcium 20 mg 01/04/24 22:00 Atorvastatin Calcium 20 Mg Tablet PO QHS DWIGHT Cholecalciferol 50 mcg 01/04/24 10:00 01/04/24 11:04 Cholecalciferol (Vit D3) 25 Mcg Tablet (1,000 Units) PO 50 mcg DAILY DWIGHT Administration Hydralazine HCl 5 mg 01/03/24 22:38 Hydralazine 20 Mg/Ml Vial IV 01/04/24 22:38 Q30M PRN maintain BP parameters with HR <60 Ceftriaxone Sodium 1 gm in 50 mls @ 100 mls/hr 01/03/24 22:45 01/04/24 00:30 Rocephin IV Infused 2200 DWIGHT Infusion Sodium Chloride 1,000 mls @ 50 mls/hr 01/03/24 22:38 01/04/24 11:49 IV 0 mls/hr .Q20H DWIGHT Infusion Sodium Chloride 250 mls @ 15 mls/hr 01/03/24 22:58 IV .[id number] PRN Additional IVPB Infusion Sodium Chloride 250 mls @ 15 mls/hr 01/03/24 22:58 IV .[id number] PRN Saline Flush Sodium Chloride 10 - 40 ml 01/03/24 22:58 0.9% Saline Lock 10 Ml Syringe IV UD PRN SALINE FLUSH
--- NOTE | 2024-01-04 17:45 | CON.PCM.ON_ITS ---
Assessment & Plan Assessment/Plan (1) Thrombocytopenia: Status: Acute Code(s): D69.6 - Thrombocytopenia, unspecified Plan: Severe, as evidenced by plt 28K on admission 01/03/24 and 27K today. Previous values available with the [facility] health system show January 2023 platelets 186K, ?but episodic thrombocytopenia November 2023 with lowest value 91K. Coags are grossly WNL, D-dimer elevated. CT A/P without contrast report reviewed, showed no splenomegaly, but vague report of subcm mesenteric LN.? Clinical picture may be suggestive of?ITP associated with SLE, however antiphospholipid antibodies are still pending and need to have path review of the peripheral smear. Given grossly normal coags and the absence of bleeding, hold on interventions (steroids, IVIG) and await results of additional labs and path review. In the interim, consider platelet tx if bleeding occurs (she was counseled to make staff aware) and advise bilat venous doppler. Request [facility] lab and Rheumatology records for review. (2) History of lupus: Status: Acute Plan: Remote, diagnosed > 20 years ago. Has not followed with rheumatology. Case discussed with Dr. Arias who is in agreement with aforementioned plan. [facility] will continue to follow. HPI Consult Data Date of Service:: 01/05/24 PCP / Referring Provider: Dr. Frank Salinas MD Attending: Dr. Reuben Hogan MD Chief Complaint Chief Complaint: Thrombocytopenia History of Present Illness History of Present Illness: Ms. Elizabeth Roberson is a pleasant 78-year-old woman with past medical history positive for lupus, CKD (stage III-IV), hyperlipidemia, hyperlipidemia, venous i nsufficiency, and lacunar infarction (left cerebellar, evident on MRI brain November 2022) who presented to [facility] ED on 01/03/2024 via squad with complaints of expressive aphasia and spouse reported left-sided weakness earlier that day.? Further endorsed 1 additional episode of expressive aphasia 2 weeks prior that resolved without intervention.? CTA head and neck negative.? Labs were significant for WBC 8.3, hemoglobin 15.3 and severe thrombocytopenia with platelet count of 28,000.? Creatinine 1.22. ?Chest x-ray negative.? UA showed but was contaminated.? Patient was felt to be at elevated risk for CVA and was subsequently admitted to the patient care unit with dx of TIA.? Further laboratory assessment today shows normal LFTs, PT/INR, PTT Fibrinogen WNL. D dimer elevated. Hematology has been consulted to address thrombocytopenia. Interval History Interval History: Upon entering the room, the patient is sitting upright in bed eating dinner. States she believes she may have had blood work for her PCP at [facility] in October that would have included a CBC. Cannot recall being told ever that her platelets were dangerously low. Complains of fatigue x 2 weeks but specifically denies any episodes of bleeding including hematochezia, melena, hematuria, epistaxis or abnormal bruising or petechiae. States that she may have seen some pink on her toothbrush earlier this morning however bristles were firm. No recurrence of oral mucosal bleeding. She further denies any family history of ITP, bleeding or clotting disorders. Mother did have history of Hodgkin lymphoma. Admits she has never undergone colon cancer screening. Advanced Directives Power of Institutional Aide: Yes Living Will: Yes [facility] Medical History Lacunar infarction Cerebral microvasculopathy Thickened endometrium Varicose veins of both lower extremities Remote history of stroke Synovial cyst of left popliteal space Vitamin D deficiency Mixed hyperlipidemia Lupus Lung nodules Impaired fasting glucose Hypersomnia CKD (chronic kidney disease) stage 3, GFR 30-59 ml/min Breast density Allergy-induced asthma Abnormal EKG Wears glasses Post-menopausal Arthritis History of renal disease High cholesterol History of Clostridium difficile infection Non-smoker History of edema Venous insufficiency of both lower extremities Peripheral vascular insufficiency Edema of both lower legs Traumatic open wound of lower leg with infection Cerebellar stroke Dizziness Left leg cellulitis HTN (hypertension) C. difficile colitis Diarrhea Left leg cellulitis Leukocytosis CEASAR (acute kidney injury) Home Medications ?Medication ?Instructions ?Recorded ?Last Taken ?Type cholecalciferol (vitamin D3) 50 50 mcg PO DAILY 08/06/23 Unknown History mcg (2,000 unit) capsule (Vitamin D3) atorvastatin 40 mg tablet 40 mg PO QHS #30 tabs 01/05/24 Unknown Rx Allergy/AdvReac Type Severity Reaction Status Date / Time fexofenadine (From Mar) Allergy Hives Verified 01/03/24 18:38 montelukast (From Singulair) AdvReac Intermediate Rash Verified 01/03/24 18:38 Family History Mother , throat and tongue Cancer Father , 92 Diabetes CVA (cerebral vascular accident) Other Breast cancer Hodgkin's disease Kidney disease Rheumatoid arthritis Surgical History Hx of laparoscopy Hx of local excision of skin lesion (~05/1999) Hx of breast biopsy H/O vein stripping Social History household members: spouse housing: house Smoking Status: Never smoker alcohol intake: never substance use type: does not use ROS Constitutional Constitutional: Reports fatigue; Denies difficulty sleeping, fever(s), frequent falls, headache(s), night sweats, weakness or weight loss Eyes Eyes: Denies change in vision Cardiovascular Cardiovascular: Reports fatigue; Denies chest pain, dizziness, edema or palpitations Respiratory/Chest Respiratory/Chest: Denies cough, dyspnea on exertion or hemoptysis Gastrointestinal Gastrointestinal: Denies abdominal pain, constipation, diarrhea, dysphagia or early satiety Integumentary Integumentary: Denies lesions or rash Neurologic Neurologic: Denies dizziness, focal weakness, headache(s), numbness or paresthesias Psychiatric Psychiatric: Denies anxiety or depression Hematologic/Lymphatic Hematologic/Lymphatic: Denies easy bleeding or easy bruising Physical Exam Const alert and oriented x3 General Appearance: cooperative HEENT normocephalic and head/scalp atraumatic Mouth: oral and palatal mucosa normal Eyes Sclera: sclera normal Neck no lymphadenopathy and supple Resp normal respiratory effort and clear to auscultation bilaterally Effort and Inspection: able to speak in complete sentences Auscultation: Negative for rhonchi or wheezes Cardio regular rate, regular rhythm, S1 normal heart sound and S2 normal heart sound GI normal to inspection, nondistended, normoactive bowel sounds, soft to palpation and non-tender; Negative for hepatosplenomegaly Extremity no clubbing, cyanosis or edema and no calf tenderness Extremity Narrative: bilat lower extremities with neeru appearance consistent with chronic venous insufficiency Skin no rashes or lesions noted and no petechiae General Skin Exam: ecchymosis and other ecchymosis limited to right forearm at previous lab draw site Neuro oriented x3 and CN's II-XII intact bilaterally Psych mental status grossly normal Attitude: calm and engaged Vital Signs Temperature 98.2 F 01/04/24 14:19 Temperature Source Oral 01/04/24 14:19 Pulse Rate 72 01/04/24 14:19 Pulse Strength Weak (1+) 01/04/24 10:00 Respiratory Rate 17 01/04/24 14:19 Respiratory Effort Normal, Non-Labored 01/04/24 02:20 Respiratory Depth Normal 01/04/24 02:20 Respiratory Pattern Normal 01/04/24 02:20 Blood Pressure 120/64 01/04/24 14:19 Blood Pressure Mean 82 01/04/24 14:19 Blood Pressure Source Monitor 01/04/24 14:19 Blood Pressure Position Semi-Fowlers 01/04/24 14:19 Blood Pressure Location Right Arm 01/04/24 14:19 Pulse Ox 95 01/04/24 14:19 Oxygen Delivery Method Room Air 01/04/24 15:47 Oxygen Flow Rate (L/min) 2 01/04/24 10:27 Laboratory Results - last 24 hr 01/03/24 19:10: WBC 8.3, RBC 5.79 H, Hgb 15.3 H, Hct 49.3 H, MCV 85.1, MCH 26.4 L, MCHC 31.0 L, RDW Std Deviation 45.6 H, RDW Coeff of Joya 15.1 H, Plt Count 28 L*, MPV TNP, Immature Gran % (Auto) 0.500, Neut % (Auto) 42.0 L, Lymph % (Auto) 28.1, [place] % (Auto) 13.2 H, Eos % (Auto) 15.0 H, Baso % (Auto) 1.2 H, Absolute Neuts (auto) 3.5, Absolute Lymphs (auto) 2.34, Nucleated RBC % 0.2, Differential Comment , Diff Path Review October, Sodium 140, Potassium 4.5, Chloride 109 H, Carbon Dioxide 27.0, Anion Gap 4 L, BUN 14, Creatinine 1.22 H, Estim Creat Clear Calc 47.86, Est GFR (MDRD) Af Amer 55 L, Est GFR (MDRD) Non-Af 46 L, BUN/Creatinine Ratio 11.5, Glucose 104, Hemoglobin A1c 5.8 H, Calcium 8.1 L, C-React Prot High Sens 9.45 H, TSH 3.96 H 01/03/24 20:20: Urine Color Yellow, Urine Clarity Sl. Cloudy, Urine pH 5.0, Ur Specific [place] 1.020, Urine Protein 30 H, Urine Glucose (UA) Normal, Urine Ketones 5 H, Urine Occult Blood Negative, Urine Nitrite Negative, Urine Bilirubin Negative, Urine Urobilinogen 1 H, Ur Leukocyte Esterase 500 H, Urine RBC 0 SEEN, Urine WBC 10-25 SEEN, Ur Squamous Epith Cells 5-10 SEEN, Urine Bacteria 1+, Urine Mucus 0 SEEN 01/04/24 00:45: ESR 9, Blood Type A POSITIVE, Antibody Screen NEGATIVE 01/04/24 05:30: WBC 8.3, RBC 5.44 H, Hgb 14.4, Hct 47.1 H, MCV 86.6, MCH 26.5 L, MCHC 30.6 L, RDW Std Deviation 47.5 H, RDW Coeff of Joya 15.2 H, Plt Count 27 L*, Immature Gran % (Auto) 0.200, Neut % (Auto) 43.3 L, Lymph % (Auto) 30.6, [place] % (Auto) 14.0 H, Eos % (Auto) 10.8 H, Baso % (Auto) 1.1 H, Absolute Neuts (auto) 3.6, Absolute Lymphs (auto) 2.53, Nucleated RBC % 0.2, Differential Comment SCANNED, Diff Path Review October, Platelet Estimate MKD DEC, Sodium 141, Potassium 4.4, Chloride 109 H, Carbon Dioxide 24.0, Anion Gap 8, BUN 12, Creatinine 1.05 H, Estim Creat Clear Calc 54.83, Est GFR (MDRD) Af Amer 66, Est GFR (MDRD) Non-Af 54 L, BUN/Creatinine Ratio 11.4, Glucose 105, Calcium 8.0 L, Total Bilirubin 0.60, AST 15, ALT 16, Alkaline Phosphatase 48, Lactate Dehydrogenase 143, Total Protein 5.9 L, Albumin 2.4 L, Globulin 3.5, Albumin/Globulin Ratio 0.7 L, Triglycerides 267 H, Cholesterol 150, LDL Cholesterol 73, VLDL Cholesterol 53 H, HDL Cholesterol 24 L 01/04/24 10:32: PT 14.2, INR 1.1, APTT 29.3, Fibrinogen 264, D-Dimer Quant (PE/DVT) 2.32 H*, Direct Antiglob Test NEG w/POLYSPECIFIC Diagnostic Data Head/Neck CTA 01/03/24 18:53 IMPRESSION: Negative CTA carotid and CTA brain. Electronically Signed: Reese Alvarez MD at 21:02 EDT , Chest X-Ray 01/03/24 19:27 IMPRESSION: No radiographic evidence of acute cardiopulmonary disease. Electronically Signed: Reese Alvarez MD at 20:48 EDT , Abdomen/Pelvis CT 01/03/24 23:39 IMPRESSION: No evidence of splenomegaly Chronic velasquez mesentery with numerous subcentimeter lymph nodes that are mildly increased in size from prior exam, possibly secondary to panniculitis. Lymphoproliferative process less likely. Consider 6 month follow-up CT Electronically Signed: Braydon Vasquez MD at 5:25 EDT , Brain MRI 01/04/24 22:20 IMPRESSION: Involutional changes of the brain, as described above. Stable appearance. Electronically Signed: Jhonatan Smith MD at 14:23 EDT ,
[2024-01-04] MEDS: Atorvastatin Calcium 20 MG Tablet PO (20:45)
[2024-01-04] MEDS: Ceftriaxone 1 GM/50 ML BAG IV (20:49)
[2024-01-04] MEDS: 0.9% Normal Saline (1000mL) 1,000 ML 50 ML IV (21:38)
--- NOTE | 2024-01-04 22:20 | MRI_ITS ---
STUDY: MRI BRAIN WITHOUT CONTRAST REASON FOR EXAM: Female, 78 years old. Please evaluate for possible CVA. EPISODE OF SPEECH DIFFICULTY ON 01/03/24, PREVIOUS CT AND MRI TECHNIQUE: Standardized multiplanar fat and water weighted pulse sequences were obtained. COMPARISON: December 21, 2022 FINDINGS: Normal size of the ventricles and extra-axial spaces for the patient''s age. There are a limited number of small white matter hyperintensities, distributed throughout the deep white matter tracts of the cerebral hemispheres, consistent with mild chronic white matter ischemic changes. There is no evidence for recent intracranial ischemia or other cause of cytotoxic edema on diffusion weighted imaging (DWI). Normal T2* images of the brain without demonstrated susceptibility artifact. There is no demonstrated hemosiderin stain. Normal bilateral basal ganglia. Normal thalami. There is no extra-axial fluid accumulation. Normal flow voids within the major intracranial circulation suggesting patency by spin echo criteria. Normal sella turcica, pituitary gland, infundibular stalk, optic chiasm and hypothalamus. Normal tectal plate and pineal gland. Normal midbrain, fadumo and medulla. There is stable left occipital volume loss and encephalomalacia. Normal basal cisterns. Normal bilateral temporal bones. Normal bilateral internal auditory canals. No demonstrated orbital abnormality, within the constraints of a routine brain study. Normal visualized paranasal sinuses. Normal calvarium and skull base. Normal visualized soft tissue structures. Normal visualized upper cervical spine. MRI/Brain without Contrast IMPRESSION: Involutional changes of the brain, as described above. Stable appearance. Electronically Signed: Jhonatan Smith MD at 14:23 EDT ,
[2024-01-05 03:27] VITALS: BMI 38.5
[2024-01-05 03:30] VITALS: O2SAT 86
[2024-01-05 03:35] VITALS: BP 112/56; PULSE 71; RESP 18; TEMP 36.4; O2SAT 96
[2024-01-05 05:44] LABS: Absolute Lymphocyte Count 2.38 X10^3/uL (0.83-4.51); Absolute Neutrophil Count 3.3 X10^3/uL (2.0-7.7); Basophil# 0.11 X10^3/uL; Basophil% 1.3 % (0-1); Eosinophil# 1.46 X10^3/uL; Eosinophils% 17.4 % (0-5); Hemoglobin 14.1 g/dL (12.0-15.0); Lymphocyte # 2.38 X10^3/ul (0.83-4.51); Lymphocyte % 28.4 % (19-41); Mean Corp Hgb Conc 30.7 g/dL (32-36); Mean Corpuscular Hgb 26.3 pg (27.0-32.0); Mean Corpuscular Volume 85.8 fL (81-99); Monocyte# 1.09 X10^3/uL; NRBC Flagged by Analyzer 0.2 % (0-5); Neutrophil # 3.29 X10^3/uL (2.7-7.7); Neutrophil % 39.4 % (47-70); POSITIVE COUNT YES; RBC Distribution Width CV 15.3 % (11.6-14.6); RBC Distribution Width SD 47.3 fl (35.1-43.9); Red Blood Count 5.36 M/mm3 (4.2-5.4); White Blood Count 8.4 K/mm3 (4.4-11.0)
[2024-01-05 06:18] LABS: Anion Gap 6 (5-15); BUN 13 mg/dL (7-18); BUN/Creat Ratio 12.1 RATIO (10-20); Calcium,Total 7.9 mg/dL (8.5-10.1); Chloride 109 mmol/L (98-107); Creatinine, Serum 1.07 mg/dL (0.55-1.02); EST Glomerular Filtration Rate 53 mL/min (>60); Est Glom Filt Rate - Afr Amer 64 mL/min (>60); Estimated Creatinine Clearance 53.81 ml/min; Glucose 104 mg/dL (74-106); Potassium 4.4 mmol/L (3.5-5.1); Sodium Level 139 mmol/L (136-145)
[2024-01-05 06:35] LABS: Differential Indicated SCAN CRITERIA MET; Platelet Count 30 K/mm3 (150-450)
--- NOTE | 2024-01-05 09:11 | PN.HOSP_ITS ---
Reason for Visit Reason for Visit: Diagnoses Thrombocytopenia, unspecified (01/03/24) Mixed hyperlipidemia (01/03/24) Transient cerebral ischemic attack, unspecified (01/03/24) Acute cystitis without hematuria (01/03/24) Personal history of transient ischemic attack (TIA), and cerebral infarction without residual deficits (01/03/24) Subjective Subjective Feeling well. No further events. Objective Data Objective Data Vital Signs: Vital Signs Temp Pulse Resp BP Pulse Ox O2 Del Method O2 Flow Rate 36.4 C L 71 18 112/56 L 96 Nasal Cannula 2 01/05/24 03:35 01/05/24 03:35 01/05/24 03:35 01/05/24 03:35 01/05/24 03:35 01/05/24 03:35 01/05/24 03:35 Oxygen Flow Rate (L/min) 2 Oxygen Delivery Method Nasal Cannula Weight: 105 kg Body Mass Index (BMI) 38.5 Intake & Output: Intake and Output for Last 24 Hours 01/03/24 01/04/24 01/05/24 23:59 23:59 23:59 Intake Total 2240.00 / 2600.00 720 / 720 Balance 2240.00 / 2600.00 720 / 720 Lab / Micro Data 01/05/24 05:20 01/05/24 05:20 Labs: Laboratory Results - last 24 hr 01/04/24 05:30: WBC 8.3, RBC 5.44 H, Hgb 14.4, Hct 47.1 H, MCV 86.6, MCH 26.5 L, MCHC 30.6 L, RDW Std Deviation 47.5 H, RDW Coeff of Joya 15.2 H, Plt Count 27 L*, Immature Gran % (Auto) 0.200, Neut % (Auto) 43.3 L, Lymph % (Auto) 30.6, [place] % (Auto) 14.0 H, Eos % (Auto) 10.8 H, Baso % (Auto) 1.1 H, Absolute Neuts (auto) 3.6, Absolute Lymphs (auto) 2.53, Nucleated RBC % 0.2, Differential Comment SCANNED, Diff Path Review May foll, Platelet Estimate MKD DEC, Sodium 141, Potassium 4.4, Chloride 109 H, Carbon Dioxide 24.0, Anion Gap 8, BUN 12, C reatinine 1.05 H, Estim Creat Clear Calc 54.83, Est GFR (MDRD) Af Amer 66, Est GFR (MDRD) Non-Af 54 L, BUN/Creatinine Ratio 11.4, Glucose 105, Calcium 8.0 L, Total Bilirubin 0.60, AST 15, ALT 16, Alkaline Phosphatase 48, Lactate Dehydrogenase 143, Total Protein 5.9 L, Albumin 2.4 L, Globulin 3.5, A lbumin/Globulin Ratio 0.7 L 01/04/24 10:32: PT 14.2, INR 1.1, APTT 29.3, Fibrinogen 264, D-Dimer Quant (PE/DVT) 2.32 H*, Direct Antiglob Test NEG w/POLYSPECIFIC 01/05/24 05:20: WBC 8.4, RBC 5.36, Hgb 14.1, Hct 46.0, MCV 85.8, MCH 26.3 L, M CHC 30.7 L, RDW Std Deviation 47.3 H, RDW Coeff of Joay 15.3 H, Plt Count 30 L*, MPV TNP, Immature Gran % (Auto) 0.500, Neut % (Auto) 39.4 L, Lymph % (Auto) 28.4, [place] % (Auto) 13.0 H, Eos % (Auto) 17.4 H, Baso % (Auto) 1.3 H, Absolute Neuts (auto) 3.3, Absolute Lymphs (auto) 2.38, Nucleated RBC % 0.2, Sodium 139, Potassium 4.4, Chloride 109 H, Carbon Dioxide 24.0, Anion Gap 6, BUN 13, C reatinine 1.07 H, Estim Creat Clear Calc 53.81, Est GFR (MDRD) Af Amer 64, Est GFR (MDRD) Non-Af 53 L, BUN/Creatinine Ratio 12.1, Glucose 104, Calcium 7.9 L Radiography Diagnostic Testing: Radiology Impression Brain MRI 01/04/24 22:20 IMPRESSION: Involutional changes of the brain, as described above. Stable appearance. Electronically Signed: Jhonatan Smith MD at 14:23 EDT , Physical Exam Const alert and no apparent distress HEENT head/scalp atraumatic and moist oral mucous membranes Eyes PERRL and EOMs intact bilaterally Resp normal respiratory effort Cardio regular rate, regular rhythm, S1 normal heart sound and S2 normal heart sound Extremity normal to inspection Neuro oriented x3, CN's II-XII intact bilaterally, moves all extremities and no focal motor deficits Sensorium / Orientation: awake and alert Motor Exam: strength 5/5 throughout Assessment & Plan Assessment/Plan (1) TIA (transient ischemic attack): (2) Thrombocytopenia: (3) Mixed hyperlipidemia: (4) History of lupus: PLAN: Plan TIA: * transient slurred speech * Not a candidate currently due to thrombocytopenia * MRI negative. Echocardiogram showed EF of 60%. * PT OT * Initiate aspirin when okay with hematology. * Event monitor Thrombocytopenia * presumed acute (was normal in January 2023) * oncology consult. Advised no steroids or IVIG at this point. * Sharon-smear pending. * Follow-up with oncology for additional recommendations. Chronic conditions: * Essential hypertension - Patient is currently not on any antihypertensive agents with no plans to start at this time to allow for 'permissive hypertension' until CVA definitively ruled out on MRI. * Hyperlipidemia - Patient was not on statin or other anti-hyperlipidemic agent at time of admission. * Obesity class II * CKD; stage III-IV - Patient noted to have normal BUN and creatinine with an estimated GFR of 46 mL/min present on admission. * History of allergy-induced asthma - Stable with no evidence of flare at this time. * History of BPPV; on as needed meclizine - Resume as needed meclizine as previous if vertigo symptoms develop. * OA: with chronic Left knee pain limiting her mobility - Noted. VTE prophylaxis: SCDs Charges/Coding Visit Charges Inpatient E&M: 10853 Subs Hosp L2
[2024-01-05 09:33] VITALS: BP 113/62; PULSE 73; RESP 17; TEMP 36.5; O2SAT 94
[2024-01-05] MEDS: Cholecalciferol (VIT D3) 25 MCG TABLET (1,000 UNITS) 50 MCG PO (09:37)
[2024-01-05] MEDS: Lactobacillis Acidophilus 2 CAP PO (09:37)
[2024-01-05 10:02] LABS: Platelet Estimate MKD DEC (ADEQ)
--- NOTE | 2024-01-05 10:13 | CASEMGMT ---
SW completed a PHQ9 with patient as patient may have had a TIA. Patient scored a 2 which indicates minimal depression. Patient denied any need for resources. Estefania JIANG
--- NOTE | 2024-01-05 11:26 | CASEMGMT ---
Met with patient to complete BARTON form. BARTON form explained to patient who voiced understanding and signed form. Original form placed in pt?s chart and copy provided to patient. Stacey Muro, Discharge Planning Asst
[2024-01-05 14:17] LABS: Pathologist Review Reviewed
[2024-01-05 14:20] LABS: Pathologist Review Reviewed
[2024-01-05 14:26] LABS: Pathologist Review Reviewed
--- NOTE | 2024-01-05 15:30 | DS.PCM_ITS ---
Providers Date of Admission: 01/03/24 Primary Care Physician: Dr. Frank Salinas MD Consultations 01/03/24 22:38 Consult: Oncology/Hematology Routine Consulting Provider: *[facility]) Reason for Consult: Severe thrombocytopenia of 28 K POA with history of lupus. EMERGENT Consult: No Notified: Yes Date Notified: 01/04/24 Time Notified: 06:26 Method of Notification: Text Consult: Tele-Neurology Routine Consulting Provider: [facility] Reason for Consult: Acute Ischemic Stroke/TIA EMERGENT Consult: No Notified: Yes Date Notified: 01/03/24 Time Notified: 23:03 Method of Notification: Answering Service Method of Consult:: Telemedicine Nursing Unit Staff Notify [facility] of Tele-Neurology Consult: Yes Reason For Visit: TIA; WITH TRANSIENT SLURRED SPEECH, SERVE Diagnosis Discharge Diagnosis (1) TIA (transient ischemic attack): Status: Acute Code(s): G45.9 - Transient cerebral ischemic attack, unspecified (2) Thrombocytopenia: Status: Acute Code(s): D69.6 - Thrombocytopenia, unspecified (3) Mixed hyperlipidemia: Status: Acute Code(s): E78.2 - Mixed hyperlipidemia (4) History of lupus: Status: Acute Plan TIA: * transient slurred speech * Not a candidate currently due to thrombocytopenia * MRI negative. Echocardiogram showed EF of 60%. * PT OT * Initiate aspirin when okay with hematology. * Event monitor * Follow up with neurology as outpt. Thrombocytopenia * presumed acute (was normal in January 2023) * oncology consult. Possible ITP, but advised no steroids or IVIG at this point. * Sharon-smear pending. * Follow-up with oncology for additional recommendations. Chronic conditions: * Essential hypertension - Patient is currently not on any antihypertensive agents with no plans to start at this time to allow for 'permissive hypertension' until CVA definitively ruled out on MRI. * Hyperlipidemia - Patient was not on statin or other anti-hyperlipidemic agent at time of admission. * Obesity class II * CKD; stage III-IV - Patient noted to have normal BUN and creatinine with an estimated GFR of 46 mL/min present on admission. * History of allergy-induced asthma - Stable with no evidence of flare at this time. * History of BPPV; on as needed meclizine - Resume as needed meclizine as previous if vertigo symptoms develop. * OA: with chronic Left knee pain limiting her mobility - Noted. VTE prophylaxis: SCDs Medications at Discharge Home Medications cholecalciferol (vitamin D3) 50 mcg (2,000 unit) capsule (Vitamin D3) 50 mcg PO DAILY 08/06/23 atorvastatin 40 mg tablet 40 mg PO QHS #30 tabs 01/05/24 Weight / BMI Weight Weight: 105 kg Body Mass Index (BMI) 38.5 ABG / Lab / Microbiology Data 01/05/24 05:20 01/05/24 05:20 Laboratory: Laboratory Results - last 24 hr 01/03/24 19:10: Diff Path Review Reviewed 01/04/24 05:30: Diff Path Review Reviewed 01/05/24 05:20: WBC 8.4, RBC 5.36, Hgb 14.1, Hct 46.0, MCV 85.8, MCH 26.3 L, M CHC 30.7 L, RDW Std Deviation 47.3 H, RDW Coeff of Joya 15.3 H, Plt Count 30 L*, MPV TNP, Immature Gran % (Auto) 0.500, Neut % (Auto) 39.4 L, Lymph % (Auto) 28.4, [place] % (Auto) 13.0 H, Eos % (Auto) 17.4 H, Baso % (Auto) 1.3 H, Absolute Neuts (auto) 3.3, Absolute Lymphs (auto) 2.38, Nucleated RBC % 0.2, Diff Path Review Reviewed, Platelet Estimate MKD DEC, Sodium 139, Potassium 4.4, Chloride 109 H, Carbon Dioxide 24.0, Anion Gap 6, BUN 13, Creatinine 1.07 H, Estim Creat Clear Calc 53.81, Est GFR (MDRD) Af Amer 64, Est GFR (MDRD) Non-Af 53 L, BUN/Creatinine Ratio 12.1, Glucose 104, Calcium 7.9 L Microbiology: Microbiology 01/03/24 20:20 Urine, Random Urine Culture - Final Mixed Gram Pos & Gram Neg Org Radiography Diagnostic Testing: Radiology Impression Echocardiogram 01/03/24 22:20 Interpretation Summary Normal LV size. Left ventricular systolic function is normal. The left ventricular ejection fraction is 60 %. Pulmonary artery systolic pressure is 33 mmHg. Bubble contrast study negative for right to left interatrial shunt. Ordering Physician: Damian Al Performed By: Dayne Grimm and Student D/C Instructions Discharge Diet: Low fat / Low cholesterol Meaningful Use Info Meaningful Use Meaningful Use Diagnoses (Choose all that apply): Ischemic CVA CVA Therapy Assessed for PT,OT and/or ST?: Yes Ischemic Stroke Antithrombotic order at d/c?: No Reason antithrombotic not ordered: Treatment not Indicated Dx of Atrial fib/flutter?: No Anticoagulant at discharge?: No Reason anticoagulant not ordered: Treatment not Indicated Statin Dosing Therapy Reference: STATIN DOSE THERAPY REFERENCE: * Patients > 75 years receive moderate or high dose statin therapy. * Patients 75 years or YOUNGER should receive HIGH intensity statin dose unless contraindicated. You will be required to document reason for non-treatment if statin daily dose does not meet guidelines. HIGH DOSE STATIN THERAPY DAILY Atorvastatin > than or = to 40 mg Rosuvastatin > than or = to 20 mg Amlodipine + Atorvastatin > than or = to 2.5/40 mg Ezetimibe + Simvastatin 10/80 mg Simvastatin 80mg Statins at discharge?: Yes Primary Dx Acute Ischemic CVA?: Yes IV thrombolytic ordered during stay?: No Reason IV thrombolytic not ordered: Treatment not Indicated Discharge Plan Admission Admit Date/Time: 01/03/24 22:12 Primary Reason for Your Visit: TIA. Attending Provider: Angel Montano Primary Care Provider: Frank Salinas Consulting Providers: James Montenegro; Ernesto Abdul; Lisset Elmore; Dari Barbour; Rosi Smith; Bobby Tian; Maci Caraballo; Pete Zavala; Lino Townsend; Ralph Solis; Michelle Sue; Braydon Francis; Lesa Suazo; Azul Asher; Dianashea Lechuga; Yadiel Hoffman; Mally Austin; Be Jordan; Robyn Ramirez; Lary Evangelista; Damian Andre; Babatunde Arias; Syeda Frank; Saji Watson; Korey Alberto; Dane Benitez; Destin Jeter; Lilli Acevedo NP; Damian Al; Reuben Hogan Instructions Additional Instructions / Restrictions: You had what was concerning for a TIA (also known as a mini stroke). Your workup here though was negative. So you will be on some cholesterol medication though your LDL is only slightly elevated at 73. Unfortunately you will not be able to do aspirin. Please follow-up with neurology at your earliest convenience. We do have a neurologist here, Dr. Moore, however he is not able to see patients for about 6 months. You may have better luck following up with [facility] [phone]. [facility] [phone]. [facility] [phone]. [facility] [phone]. [facility] [phone] As you know your platelets are low. The concern is that this could be ITP (known as idiopathic thrombocytopenic purpura) which is an autoimmune process that can affect the platelets. Please follow-up with hematology within a week or 2 for further monitoring and follow-up and see if any treatment would be recommended at that time. They did not recommend any treatment at this time. Discharge Orders/Prescriptions Prescriptions: New atorvastatin 40 mg tablet 40 mg PO QHS Qty: 30 0RF Continued cholecalciferol (vitamin D3) [Vitamin D3] 50 mcg (2,000 unit) capsule 50 mcg PO DAILY Discontinued aspirin 81 mg tablet,chewable 81 mg PO DAILY Other Ambulatory Orders: 30 Day Event Recorder Preventi (Urgent) Timeframe: 1 Day Facility: [facility] - Location: Cardiovascular Services Ordered By: Dr. Angel Montano Referrals / Follow Up: *[facility]) [Provider Group] - Within 1 Week Frank Salinas MD [Primary Care Provider] - Within 2 Weeks Disposition Disposition (needs filled in before D/C Order can be placed): Home, Self Care Charges/Coding Visit Charges Inpatient E&M: 68837 Disch Hosp >30min
--- NOTE | 2024-01-05 15:52 | CASEMGMT ---
Discharge order in, RN CM into pt room. Pt states has support at home and denies any home going needs at this time.
[2024-01-05 16:10] VITALS: BP 119/81; PULSE 70; RESP 17; TEMP 36.8; O2SAT 95
[2024-01-05 17:00] VITALS: BMI 38.5
[2024-01-06 13:08] LABS: Anti-Centromere B Ab <0.2 AI (0.0-0.9); Anti-Chromatin 0.9 AI (0.0-0.9); Anti-Jo <0.2 AI (0.0-0.9); Anti-Scleroderma-70 AB <0.2 AI (0.0-0.9); Anti-dsDNA Ab <1 IU/mL (0-9); RNP Ab <0.2 AI (0.0-0.9); SJOGREN'S Anti-SS-A test < 0.2 AI (0.0-0.9); SJOGREN'S Anti-SS-B test < 0.2 AI (0.0-0.9); Smith Ab <0.2 AI (0.0-0.9)
[2024-01-06 20:08] LABS: ANTINUCLEAR ANTIBODIES DIRECT Negative (Negative)
[2024-01-07 17:08] LABS: Glycoprotein IV Antibody Negative (Negative)
[2024-01-12 16:09] LABS: Anti-Cardiolipin Ab, IgA, Qn < 9 APL U/mL (0-11); Anti-Cardiolipin Ab, IgG, Qn 18 GPL U/mL (0-14); Anti-Cardiolipin Ab, IgM, Qn < 9 MPL U/mL (0-12); Beta-2-Glycoprotein I IgA <9 (0-25); Beta-2-Glycoprotein I IgG <9 (0-20); Beta-2-Glycoprotein I IgM <9 (0-32); Dilute Prothrombin Time (dPT) 39.8 sec (0.0-47.6); Interpretation Comment: (.); PTT-LA 39.2 sec (0.0-43.5); dPT Confirm Ratio 1.26 Ratio (0.00-1.34)
== END 2024-01-05 15:51 | disposition home or self-care (01) ==
LOC: ED 21:35 → PCU 22:40
PROVIDERS: Internal Medicine; Physician Assistant; Admitting Provider Internal Medicine; Emergency Provider Emergency Medicine; PCP Family Medicine
DX: G45.9 Transient cerebral ischemic attack, unspecified (principal); N18.4 Chronic kidney disease, stage 4 (severe); M32.9 Systemic lupus erythematosus, unspecified; I12.9 Hypertensive chronic kidney disease with stage 1 through stage 4 chronic kidney disease, or unspecified chronic kidney disease; R29.700 NIHSS score 0; E78.2 Mixed hyperlipidemia; N30.00 Acute cystitis without hematuria; R47.81 Slurred speech; M25.562 Pain in left knee; Z79.82 Long term (current) use of aspirin; R26.2 Difficulty in walking, not elsewhere classified; D69.6 Thrombocytopenia, unspecified; R47.01 Aphasia; E66.9 Obesity, unspecified; Z68.39 Body mass index [BMI] 39.0-39.9, adult; I73.9 Peripheral vascular disease, unspecified; M79.89 Other specified soft tissue disorders; R29.810 Facial weakness; R29.898 Other symptoms and signs involving the musculoskeletal system
CPT/HCPCS: 36415; 70496; 70498; 70551; 71045; 74176; 80048; 80053; 80061; 81001; 83036; 83615; 84443; 85025; 85379; 85384; 85610; 85652; 85730; 86022; 86038; 86141; 86146; 86147; 86225; 86235; 86850; 86880; 86900; 86901; 87086; 87088; 92523; 93005; 93306; 93970; 94762; 96365; 96366; 97116; 97162; 97166; 97530; 97802; 99221; 99284; J7030; Q9967; A4216; G0378

== ENCOUNTER 2024-01-18 12:38 | Emergency (ER) | payer MEDICARE, SELFPAY ==
[2024-01-18 12:38] VITALS: BP 111/73; PULSE 80; RESP 16; TEMP 36.8; O2SAT 95; BMI 35.1
--- NOTE | 2024-01-18 12:59 | ED.VIS.GI ---
HPI <AURA Sullivan - Last Filed: 01/18/24 18:20> HPI - GI History of Present Illness Chief Complaint: Diarrhea Narrative Narrative: Patient presenting today with diarrhea that she has had since yesterday. She reports that she is having multiple bouts of loose stool. She does have a history of C. difficile last January. She was recently admitted here for TIA at the beginning of December and did receive antibiotics for a UTI. She denies any recent travel. She denies fevers, chills, urinary symptoms, nausea, and vomiting. PFSH <AURA Sullivan - Last Filed: 01/18/24 18:20> [facility] Medical History History of lupus Lacunar infarction Cerebral microvasculopathy Thickened endometrium Varicose veins of both lower extremities Remote history of stroke Synovial cyst of left popliteal space Vitamin D deficiency Mixed hyperlipidemia Lupus Lung nodules Impaired fasting glucose Hypersomnia CKD (chronic kidney disease) stage 3, GFR 30-59 ml/min Breast density Allergy-induced asthma Abnormal EKG Wears glasses Post-menopausal Arthritis History of renal disease High cholesterol History of Clostridium difficile infection Non-smoker History of edema Venous insufficiency of both lower extremities Peripheral vascular insufficiency Edema of both lower legs Traumatic open wound of lower leg with infection Cerebellar stroke Dizziness Left leg cellulitis HTN (hypertension) C. difficile colitis Diarrhea Left leg cellulitis Leukocytosis CEASAR (acute kidney injury) Home Medications ?Medication ?Instructions ?Recorded ?Last Taken ?Type cholecalciferol (vitamin D3) 50 50 mcg PO DAILY 08/06/23 Unknown History mcg (2,000 unit) capsule (Vitamin D3) atorvastatin 40 mg tablet 40 mg PO QHS #30 tabs 01/05/24 Unknown Rx vancomycin 125 mg capsule 125 mg PO Q6H 10 days #40 caps 01/18/24 Unknown Rx Allergy/AdvReac Type Severity Reaction Status Date / Time fexofenadine (From Mar) Allergy Hives Verified 01/18/24 12:39 montelukast (From Singulair) AdvReac Intermediate Rash Verified 01/18/24 12:39 Family History Mother , throat and tongue Cancer Father , 92 Diabetes CVA (cerebral vascular accident) Other Breast cancer Hodgkin's disease Kidney disease Rheumatoid arthritis Surgical History Hx of laparoscopy Hx of local excision of skin lesion (~05/1999) Hx of breast biopsy H/O vein stripping Social History household members: spouse housing: house Smoking Status: Never smoker alcohol intake: never substance use type: does not use ROS <AURA Sullivan - Last Filed: 01/18/24 18:20> ROS ED Constitutional Constitutional ED: Denies chills or fever(s) Cardiovascular Cardiovascular: Denies chest pain or palpitations Respiratory/Chest Respiratory/Chest: Denies cough or dyspnea Gastrointestinal Gastrointestinal: Reports diarrhea; Denies abdominal pain, nausea or vomiting Genitourinary Genitourinary ED: Denies dysuria, hematuria or urinary urgency Musculoskeletal Musculoskeletal: Denies arthralgias or myalgias Integumentary Denies rash Neurologic Neurologic: Denies weakness EXAM <AURA Sullivan - Last Filed: 01/18/24 18:20> Physical Exam Const Vital Signs: 01/18/24 12:38 01/18/24 14:38 01/18/24 16:00 Temperature 98.3 F Temperature Source Temporal Pulse Rate 80 64 81 Respiratory Rate 16 16 16 Blood Pressure 111/73 125/71 H 117/72 Blood Pressure Mean 85 89 87 Pulse Ox 95 99 98 Oxygen Delivery Method Room Air Room Air Room Air 01/18/24 16:06 Temperature 97 F L Temperature Source Pulse Rate 81 Respiratory Rate 16 Blood Pressure 125/70 H Blood Pressure Mean 88 Pulse Ox 98 Oxygen Delivery Method Positive well nourished, well developed and no apparent distress General Appearance ED: well developed HEENT Reports normocephalic and head/scalp atraumatic Mouth ED: Yes moist mucous membranes normal Eyes PERRL and EOMs intact bilaterally Neck full ROM and supple Chest Wall inspection of chest normal Resp normal respiratory effort and clear to auscultation bilaterally Cardio regular rate and regular rhythm GI soft to palpation, non-tender, non-distended and no masses Back/Spine normal ROM and normal to inspection Extremity normal to inspection and full ROM Neuro oriented x3, CN's II-XII intact bilaterally, moves all extremities, no focal motor deficits and no sensory deficits noted Sensorium / Orientation: awake and alert Psych mental status grossly normal and thought process normal Skin no rashes or lesions noted and no wounds <Dr. Charlie Hoyt MD - Last Filed: 01/18/24 16:02> Physical Exam Const Vital Signs: 01/18/24 12:38 01/18/24 14:38 01/18/24 16:00 Temperature 98.3 F Temperature Source Temporal Pulse Rate 80 64 81 Respiratory Rate 16 16 16 Blood Pressure 111/73 125/71 H 117/72 Blood Pressure Mean 85 89 87 Pulse Ox 95 99 98 Oxygen Delivery Method Room Air Room Air Room Air 01/18/24 16:06 Temperature 97 F L Temperature Source Pulse Rate 81 Respiratory Rate 16 Blood Pressure 125/70 H Blood Pressure Mean 88 Pulse Ox 98 Oxygen Delivery Method MDM <AURA Sullivan - Last Filed: 01/18/24 18:20> [facility] Narrative Medical decision making narrative: Patient presenting today due to diarrhea she has had since yesterday. She did receive antibiotics at the beginning of December for a UTI while she was here for a TIA. She does have a history of C. difficile. We will test her if she is able to provide a sample, labs will be obtained to assess for leukocytosis, electrolyte abnormality, CEASAR. She will be given IV fluids. Patient's WBC is 30.5, platelet count is 75 which is increased from previous visit, she reports that they are working her up for her thrombocytopenia. She has a potassium of 3.2, replacement was given. Creatinine 1.27. She was able to provide a C. difficile sample but we do not yet have results. She would like to go home. Given her leukocytosis and previous history with recent antibiotic use, we will treat her for C. difficile with vancomycin with first dose here. We spoke with her PCP to ensure close follow-up, she is to follow-up and has been given return instructions. She will be discharged home in stable condition. I have personally performed a face to face assessment of the patient and have reviewed the ELVIS Note. I performed a substantive portion of the visit including all aspects of the following. My potter findings include: History is 78-year-old female with diarrhea since yesterday. Prior history of C. difficile. Exam is [78-year-old female vital signs stable afebrile. Does not look septic or toxic. No distress. H EENT exam unremarkable. Moist weeks membranes. Neck nontender. Lungs clear. Heart regular rhythm rate about 80 no murmur. Abdomen soft, nontender, nondistended normal bowel sounds without peritoneal signs. Patient moving all 4 extremities. Nontender no edema. Neurologically she is awake and alert. Answering questions and following commands.] Medical Decision Making [78-year-old with diarrhea prior history of C. difficile. Screening labs and stool culture if available. IV fluids.] Other additions or changes: [Patient doing well at 4 PM. I discussed with her her test results we are to treat her for possible C. difficile admitted we do not have a confirmative diagnosis. Given her diarrhea, prior history and 30,000 white count I think it is in her best interest. She is comfortable with that plan. She will be given a dose here. And a prescription sent to her pharmacy. I did speak to Dr. Lynda Hughes covering for the patient's primary care physician to ensure close follow-up at the local [facility] offices.] Lab Data Labs: Laboratory Results - last 24 hr 01/18/24 13:00 WBC 30.5 H* RBC 5.62 H Hgb 14.8 Hct 46.5 MCV 82.7 MCH 26.3 L MCHC 31.8 L RDW Std Deviation 43.8 RDW Coeff of Joya 15.0 H Plt Count 75 L MPV TNP Immature Gran % (Auto) 0.800 Neut % (Auto) 86.2 H Lymph % (Auto) 7.0 L [place] % (Auto) 5.5 Eos % (Auto) 0.2 Baso % (Auto) 0.3 Absolute Neuts (auto) 26.3 H Absolute Lymphs (auto) 2.13 Nucleated RBC % 0 Differential Comment SCANNED Diff Path Review May foll Toxic Vacuolation 1+ Platelet Estimate MOD DEC Anisocytosis 1+ Ovalocytes 1+ Acanthocytes (Spur) RARE Schistocytes RARE Sodium 137 Potassium 3.2 L Chloride 106 Carbon Dioxide 24.0 Anion Gap 7 BUN 17 Creatinine 1.27 H Estim Creat Clear Calc 43.12 Est GFR (MDRD) Af Amer 53 L Est GFR (MDRD) Non-Af 43 L BUN/Creatinine Ratio 13.4 Glucose 133 H Calcium 7.8 L <Dr. Charlie Hoyt MD - Last Filed: 01/18/24 16:02> [facility] MDM Narrative Medical decision making narrative: Patient presenting today due to diarrhea she has had since yesterday. She did receive antibiotics at the beginning of December for a UTI while she was here for a TIA. She does have a history of C. difficile. We will test her if she is able to provide a sample, labs will be obtained to assess for leukocytosis, electrolyte abnormality, CEASAR. She will be given IV fluids. I have personally performed a face to face assessment of the patient and have reviewed the ELVIS Note. I performed a substantive portion of the visit including all aspects of the following. My potter findings include: History is 78-year-old female with diarrhea since yesterday. Prior history of C. difficile. Exam is [78-year-old female vital signs stable afebrile. Does not look septic or toxic. No distress. H EENT exam unremarkable. Moist weeks membranes. Neck nontender. Lungs clear. Heart regular rhythm rate about 80 no murmur. Abdomen soft, nontender, nondistended normal bowel sounds without peritoneal signs. Patient moving all 4 extremities. Nontender no edema. Neurologically she is awake and alert. Answering questions and following commands.] Medical Decision Making [78-year-old with diarrhea prior history of C. difficile. Screening labs and stool culture if available. IV fluids.] Other additions or changes: [Patient doing well at 4 PM. I discussed with her her test results we are to treat her for possible C. difficile admitted we do not have a confirmative diagnosis. Given her diarrhea, prior history and 30,000 white count I think it is in her best interest. She is comfortable with that plan. She will be given a dose here. And a prescription sent to her pharmacy. I did speak to Dr. Lynda Hughes covering for the patient's primary care physician to ensure close follow-up at the local [facility] offices.] History & Record Review Discussion w/independent historian: Patient Additional record(s) reviewed:: Prior inpatient record, Prior outpatient record, Prior ED visit, Prior labs and No prior records Lab Data Attestation: I reviewed the patient's lab results. Lab results narrative: CBC shows no elevated white count of 30,500. H&H 14 and 46. Platelets are low at 75,000. Electrolytes unremarkable potassium 3.2. Gap is 7. BUN is 17 creatinine 1.27. Glucose 133. Labs: Laboratory Results - last 24 hr 01/18/24 13:00 WBC 30.5 H* RBC 5.62 H Hgb 14.8 Hct 46.5 MCV 82.7 MCH 26.3 L MCHC 31.8 L RDW Std Deviation 43.8 RDW Coeff of Joya 15.0 H Plt Count 75 L MPV TNP Immature Gran % (Auto) 0.800 Neut % (Auto) 86.2 H Lymph % (Auto) 7.0 L [place] % (Auto) 5.5 Eos % (Auto) 0.2 Baso % (Auto) 0.3 Absolute Neuts (auto) 26.3 H Absolute Lymphs (auto) 2.13 Nucleated RBC % 0 Differential Comment SCANNED Diff Path Review May foll Toxic Vacuolation 1+ Platelet Estimate MOD DEC Anisocytosis 1+ Ovalocytes 1+ Acanthocytes (Spur) RARE Schistocytes RARE Sodium 137 Potassium 3.2 L Chloride 106 Carbon Dioxide 24.0 Anion Gap 7 BUN 17 Creatinine 1.27 H Estim Creat Clear Calc 43.12 Est GFR (MDRD) Af Amer 53 L Est GFR (MDRD) Non-Af 43 L BUN/Creatinine Ratio 13.4 Glucose 133 H Calcium 7.8 L Discharge Plan Triage Chief Complaint: Diarrhea ED Midlevel Provider: Viridiana Hankins ED Provider: Charlie Hoyt Dx/Rx/DC Orders Clinical Impression: Diarrhea, History of Clostridioides difficile colitis Instructions: ED Diarrhea, Unknown Cause Prescriptions: New vancomycin 125 mg capsule 125 mg PO Q6H 10 Days Qty: 40 0RF No Action cholecalciferol (vitamin D3) [Vitamin D3] 50 mcg (2,000 unit) capsule 50 mcg PO DAILY atorvastatin 40 mg tablet 40 mg PO QHS Qty: 30 0RF Primary Care Provider: Frank Salinas Referrals: Frank Salinas MD [Primary Care Provider] - 3-5 Days Activity Restrictions/Additional Instructions: Please follow-up with your PCP, return for any worsening of your symptoms. Take antibiotics as prescribed. Print Language: Maltese Disposition Disposition: Home, Self Care Discharge Date/Time: 01/18/24 16:15
[2024-01-18] MEDS: 0.9% Normal Saline (1000mL) 1,000 ML 999 ML IV (13:04)
[2024-01-18 13:17] LABS: Absolute Lymphocyte Count 2.13 X10^3/uL (0.83-4.51); Absolute Neutrophil Count 26.3 X10^3/uL (2.0-7.7); Basophil# 0.09 X10^3/uL; Basophil% 0.3 % (0-1); Eosinophil# 0.06 X10^3/uL; Eosinophils% 0.2 % (0-5); Hematocrit 46.5 % (37-47); Hemoglobin 14.8 g/dL (12.0-15.0); Lymphocyte # 2.13 X10^3/ul (0.83-4.51); Mean Corp Hgb Conc 31.8 g/dL (32-36); Mean Corpuscular Hgb 26.3 pg (27.0-32.0); Mean Corpuscular Volume 82.7 fL (81-99); Monocyte# 1.67 X10^3/uL; Monocyte% 5.5 % (0-10); NRBC Flagged by Analyzer 0 % (0-5); Neutrophil % 86.2 % (47-70); POSITIVE COUNT YES; POSITIVE DIFFERENTIAL YES; Platelet Count 75 K/mm3 (150-450); RBC Distribution Width SD 43.8 fl (35.1-43.9); Red Blood Count 5.62 M/mm3 (4.2-5.4)
[2024-01-18 13:23] LABS: Differential Indicated SCAN CRITERIA MET
[2024-01-18 13:26] LABS: White Blood Count 30.5 K/mm3 (4.4-11.0)
[2024-01-18 13:34] LABS: Anion Gap 7 (5-15); BUN 17 mg/dL (7-18); BUN/Creat Ratio 13.4 RATIO (10-20); Calcium,Total 7.8 mg/dL (8.5-10.1); Chloride 106 mmol/L (98-107); Creatinine, Serum 1.27 mg/dL (0.55-1.02); EST Glomerular Filtration Rate 43 mL/min (>60); Est Glom Filt Rate - Afr Amer 53 mL/min (>60); Estimated Creatinine Clearance 43.12 ml/min; Glucose 133 mg/dL (74-106); Potassium 3.2 mmol/L (3.5-5.1); Sodium Level 137 mmol/L (136-145)
[2024-01-18 14:23] LABS: Differential Comment SCANNED
[2024-01-18 14:24] LABS: Platelet Estimate MOD DEC (ADEQ); Vacuolated Cells 1+
[2024-01-18 14:25] LABS: Acanthocytes RARE; Anisocytosis 1+; Ovalocyte 1+; Schistocytes RARE
[2024-01-18 14:38] VITALS: BP 125/71; PULSE 64; RESP 16; O2SAT 99
[2024-01-18] MEDS: Potassium Chloride Oral Tablet 20 MEQ 40 MEQ PO (15:05)
[2024-01-18 16:00] VITALS: BP 117/72; PULSE 81; RESP 16; O2SAT 98
[2024-01-18 16:06] VITALS: BP 125/70; PULSE 81; RESP 16; TEMP 36.1; O2SAT 98
[2024-01-18] MEDS: Vancomycin 125 MG/5 ML Susp PO.SYRINGE PO (16:13)
[2024-01-19 15:24] LABS: Pathologist Review Reviewed
== END 2024-01-18 16:15 | disposition home or self-care (01) ==
PROVIDERS: Physician Assistant; Emergency Provider Emergency Medicine; PCP Family Medicine; Visit Provider Emergency Medicine
DX: R19.7 Diarrhea, unspecified (principal); N18.30 Chronic kidney disease, stage 3 unspecified; I12.9 Hypertensive chronic kidney disease with stage 1 through stage 4 chronic kidney disease, or unspecified chronic kidney disease; E78.2 Mixed hyperlipidemia; Z79.899 Other long term (current) drug therapy; Z86.19 Personal history of other infectious and parasitic diseases; Z86.73 Personal history of transient ischemic attack (TIA), and cerebral infarction without residual deficits
CPT/HCPCS: 80048; 85025; 87493; 96360; 99283; J7030; A4216

== ENCOUNTER 2024-05-04 11:11 | Inpatient (IN) | payer MEDICARE, SELFPAY ==
[2024-05-04] VITALS (28 sets, daily range): BP systolic 72–111; BP diastolic 46–93; PULSE 79–120; RESP 12–43; TEMP 36.4–37.6; O2SAT 81–98; BMI 33.0; BMI 32.2
--- NOTE | 2024-05-04 11:28 | EKG12_ITS ---
Test Reason : SOB Blood Pressure : */* mmHG Vent. Rate : 94 BPM Atrial Rate : 94 BPM P-R Int : 116 ms QRS Dur : 92 ms QT Int : 350 ms P-R-T Axes : 48 91 56 degrees QTcB Int : 437 ms Sinus rhythm with occasional Premature ventricular complexes Rightward axis Septal infarct , age undetermined Abnormal ECG Confirmed by Jovany Montalvo ([id number]), copy editor JANE BURGESS ([id number]) on 05/05/2024 11:41:00 AM Referred By: Confirmed By: Jovany Montalvo
--- NOTE | 2024-05-04 11:29 | RAD_ITS ---
STUDY: X-RAY CHEST REASON FOR EXAM: Female, 78 years old. Shortness of breath TECHNIQUE: Single AP portable view of the chest. COMPARISON: Comparison is made with prior study January 03, 2024. FINDINGS: EKG electrodes are seen. Opacification of the left hemithorax suggestive of a collapse of the left upper lobe. Infiltrate in the medial aspect of the right lung base. Correlation with CT scan recommended. Normal size heart. Normal mediastinum and max. Normal visualized pulmonary arteries. There is atherosclerotic tortuosity of the aortic arch and descending thoracic aorta. There are diffuse degenerative changes of the visualized thoracic spine. Normal visualized ribs, clavicles, and shoulders. There is no demonstrated abnormality of the visualized soft tissue structures of the upper abdomen. RAD/Chest 1 View (Portable) IMPRESSION: Opacification of the left hemithorax suggestive of collapse of the left upper lobe. Possible atelectasis and/or infiltrate in the medial aspect of the right lower lobe. CT scan correlation recommended. Electronically Signed: Pedro Mazariegos MD at 12:19 EST ,
[2024-05-04] MEDS: 0.9% Normal Saline (1000mL) 1,000 ML 999 ML IV ×4 (11:35→16:31)
[2024-05-04 11:43] LABS: Allen Test Positive; Base Excess -9 mmol/L (-2 to +2); Bicarbonate 16.9 mmol/L (22-26); Blood Gas Specimen Type ART; Mode Not entered; O2 Delivery Device BiPAP; PEEP 8; PO2 69 mmHG (75-100); RR 12; SITE R Radial; SO2 93 % (95-99); Total Carbon Dioxide 18 mmol/L; pCO2 29.6 mmHg (35-45); pH 7.36 (7.35-7.45)
[2024-05-04 11:44] LABS: Absolute Lymphocyte Count 1.13 X10^3/uL (0.83-4.51); Absolute Neutrophil Count 35.8 X10^3/uL (2.0-7.7); Basophil% 0.5 % (0-1); Eosinophil# 0.03 X10^3/uL; Eosinophils% 0.1 % (0-5); Hematocrit 54.4 % (37-47); Hemoglobin 16.3 g/dL (12.0-15.0); Lymphocyte # 1.13 X10^3/ul (0.83-4.51); Mean Corpuscular Hgb 24.4 pg (27.0-32.0); Mean Corpuscular Volume 81.3 fL (81-99); Monocyte# 0.48 X10^3/uL; Monocyte% 1.3 % (0-10); NRBC Flagged by Analyzer 0.7 % (0-5); Neutrophil # 35.83 X10^3/uL (2.7-7.7); POSITIVE COUNT YES; POSITIVE DIFFERENTIAL YES; POSITIVE MORPHOLOGY YES; RBC Distribution Width CV 23.5 % (11.6-14.6); RBC Distribution Width SD 66.4 fl (35.1-43.9); Red Blood Count 6.69 M/mm3 (4.2-5.4); White Blood Count 38.1 K/mm3 (4.4-11.0)
[2024-05-04 11:49] LABS: Differential Indicated SCAN CRITERIA MET
[2024-05-04 11:56] LABS: Lactic Acid 7.9 mmol/L (0.4-1.9)
[2024-05-04 12:02] LABS: International Normalized Ratio 2.2; Prothrombin Time (Protime)PT. 24.5 SECONDS (11.7-14.9)
[2024-05-04 12:03] LABS: Partial Thromboplast Time 32.4 Seconds (24.1-36.2)
[2024-05-04 12:22] LABS: Anisocytosis 1+; Platelet Estimate SLT DEC (ADEQ); Platelet Morphology LARGE
--- NOTE | 2024-05-04 12:27 | ED.VIS.DYS ---
HPI History of Present Illness Chief Complaint: Shortness of Breath Narrative Narrative: 78-year-old female presents with her from her primary care provider's office with a low pulse ox. She states that she has had generalized weakness that has been progressive over the last few days to weeks. She is also been more confused. Her history and physical is mildly limited secondary to hypoxia and confusion. According to her , she has had p.o. intake that has been decreased over the last few days. She has been generally weak and only wants to lay in bed. Reportedly she made an appointment with her doctor for today, but was told that she should probably come to the emergency department yesterday because it sounded like she was having difficulty breathing. relates history that she was admitted at a [facility] because of low blood oxygen level, as well as low platelets. They state that her platelets have come up, and that she does not wear oxygen at home, but has been very weak over the last few days. [facility] Medical History History of lupus Lacunar infarction Cerebral microvasculopathy Thickened endometrium Varicose veins of both lower extremities Remote history of stroke Synovial cyst of left popliteal space Vitamin D deficiency Mixed hyperlipidemia Lupus Lung nodules Impaired fasting glucose Hypersomnia CKD (chronic kidney disease) stage 3, GFR 30-59 ml/min Breast density Allergy-induced asthma Abnormal EKG Wears glasses Post-menopausal Arthritis History of renal disease High cholesterol History of Clostridium difficile infection Non-smoker History of edema Venous insufficiency of both lower extremities Peripheral vascular insufficiency Edema of both lower legs Traumatic open wound of lower leg with infection Cerebellar stroke Dizziness Left leg cellulitis HTN (hypertension) C. difficile colitis Diarrhea Left leg cellulitis Leukocytosis CEASAR (acute kidney injury) Home Medications ?Medication ?Instructions ?Recorded ?Last Taken ?Type cholecalciferol (vitamin D3) 50 50 mcg PO DAILY 08/06/23 05/03/24 History mcg (2,000 unit) capsule (Vitamin D3) avatrombopag 20 mg tablet 20 mg PO DAILY 05/04/24 Unknown History fluticasone propionate 50 2 spray intranasal DAILY 05/04/24 05/03/24 History mcg/actuation nasal spray,suspension lactobacillus combination no.4 3 3,000 mmu cells PO DAILY 05/04/24 05/03/24 History billion cell capsule spironolactone 25 mg tablet 12.5 mg PO DAILY 05/04/24 05/03/24 History Allergy/AdvReac Type Severity Reaction Status Date / Time fexofenadine (From Mar) Allergy Hives Verified 05/04/24 11:21 montelukast (From Singulair) AdvReac Intermediate Rash Verified 05/04/24 11:21 Family History Mother , throat and tongue Cancer Father , 92 Diabetes CVA (cerebral vascular accident) Other Breast cancer Hodgkin's disease Kidney disease Rheumatoid arthritis Surgical History Hx of laparoscopy Hx of local excision of skin lesion (~05/1999) Hx of breast biopsy H/O vein stripping Social History household members: spouse housing: house Smoking Status: Never smoker alcohol intake: never substance use type: does not use ROS ROS ED ROS Narrative Unable to obtain from patient's secondary to patient condition. Per , generalized weakness, decreased p.o. intake, baseline confusion. No fevers or chills. Reported low pulse ox from primary care provider's office. Review of Systems ROS Unobtainable: due to mental status EXAM Physical Exam Narrative Exam Narrative: Temperature 99.3 degrees. Slightly drowsy on appearance. Cardiovascular examination reveals a regular tachycardia. Decreased breath sounds left lung field. Abdomen soft nontender with normal active bowel sounds. Moves all extremities. No noted pedal edema. Chronic skin changes bilateral lower extremities left greater than right. Const Vital Signs: 05/04/24 11:12 05/04/24 11:19 05/04/24 11:30 Temperature 99.3 F H 99.3 F H Temperature Source Axillary Axillary Pulse Rate 120 H 105 H 103 H Respiratory Rate 43 H 24 H 35 H Respiratory Effort Respiratory Pattern Blood Pressure 99/53 L 99/53 L Blood Pressure Mean 68 68 Pulse Ox 91 81 90 Oxygen Delivery Method Nasal Cannula Nasal Cannula Oxygen Flow Rate (L/min) 6 6 Fraction of Inspired Oxygen (FIO2) 100 05/04/24 11:37 05/04/24 11:40 05/04/24 11:47 Temperature Temperature Source Pulse Rate 95 Respiratory Rate 28 H Respiratory Effort Short of Breath Labored Accessory Muscle Use Nasal Flaring Respiratory Pattern Tachypnea Blood Pressure 72/47 L Blood Pressure Mean 55 Pulse Ox 93 Oxygen Delivery Method Nasal Cannula Bi-pap Oxygen Flow Rate (L/min) 6 Fraction of Inspired Oxygen (FIO2) 05/04/24 11:48 05/04/24 12:11 05/04/24 12:27 Temperature 99.3 F H 98.9 F Temperature Source Axillary Axillary Pulse Rate 95 95 Respiratory Rate 28 H 28 H Respiratory Effort Respiratory Pattern Blood Pressure 72/47 L 92/63 Blood Pressure Mean 55 72 Pulse Ox 93 93 Oxygen Delivery Method Bi-pap Bi-pap Oxygen Flow Rate (L/min) Fraction of Inspired Oxygen (FIO2) 05/04/24 12:33 05/04/24 12:47 05/04/24 13:00 Temperature Temperature Source Pulse Rate 89 87 Respiratory Rate 26 H 26 H Respiratory Effort Respiratory Pattern Blood Pressure 104/68 96/54 L Blood Pressure Mean 80 68 Pulse Ox 96 96 Oxygen Delivery Method Bi-pap Bi-pap Oxygen Flow Rate (L/min) Fraction of Inspired Oxygen (FIO2) 90 05/04/24 13:18 05/04/24 13:57 05/04/24 14:00 Temperature 99.7 F H 99.7 F H 99.7 F H Temperature Source Axillary Axillary Pulse Rate 89 Respiratory Rate 30 H Respiratory Effort Respiratory Pattern Blood Pressure 98/61 Blood Pressure Mean 73 Pulse Ox 92 Oxygen Delivery Method Oxygen Flow Rate (L/min) Fraction of Inspired Oxygen (FIO2) 05/04/24 14:00 Temperature Temperature Source Pulse Rate 89 Respiratory Rate 31 H Respiratory Effort Respiratory Pattern Blood Pressure 91/68 Blood Pressure Mean 77 Pulse Ox 92 Oxygen Delivery Method Oxygen Flow Rate (L/min) Fraction of Inspired Oxygen (FIO2) Sepsis Attestation Sepsis Alert: Yes Sepsis Attestation: Agree w/Sepsis Date exam was performed: 05/04/24 Time exam was performed: 12:38 Possible Source of Sepsis: Pulmonary Sepsis Organ Dysfunction Criteria Present: SBP < 90 mmHg or MAP < 65 mmHg, Acute Respiratory Failure (New need for BiPAP/CPAP or MV), INR > 1.5 or aPTT > 60 sec and Lactic Acid > 2 mmol/L Fluid Resuscitation Fluid resuscitation indicated?: Yes Fluid Resuscitation ordered: 30 ml/kg fluid bolus ordered Amount of fluid ordered: 2,700 Sepsis Note Date exam was performed: 05/04/24 Time exam was performed: 14:11 Sepsis Attestation: Sepsis re-evaluation was performed Response to fluids: Fluid responsive hypotension MDM MDM MDM Narrative Medical decision making narrative: Differential diagnosis includes but not limited to pneumonia versus pneumothorax versus COPD versus CHF. Patient does not have a history of COPD or CHF according to her . Sepsis workup was pursued as she had borderline blood pressure and tachycardia with slightly elevated temperature of 99.3 here in the emergency department. She was placed on BiPAP because of a low pulse oximetry. I reviewed her laboratory work and she has a leukocytosis of 38.1 with hemoglobin 16.3 and hematocrit 54.4. Lactic acid is elevated at 7.9 with BNP of 191. I do feel that she should be bolused IV fluids to her 30 mL/kg for a total of 2700. Blood cultures will be obtained. Chest x-ray in 1 view interpreted by myself shows infiltrate of the left lung which will be treated as pneumonia. As I feel she is more in septic shock, she was started on the IV fluids with resultant heart rate in the 90s, but still with borderline blood pressure. Blood gas was also obtained and interpreted by myself with a pH of 7.3 and pCO2 low at 29.6 which I think may be hyperventilation, but pO2 low at 69. I reviewed her INR and it is elevated 2.2, sodium slightly low at 134 with potassium 3.5. BUN is 38 with creatinine elevated at 1.93, higher than her usual baseline with her chronic kidney disease. While troponin is elevated at 316, I do feel this is probably more of a type II elevation secondary to her respiratory failure and her pneumonia. The pneumonia was diagnosed on my interpretation as stated above. I did review the radiology report which confirms my independent interpretation. EKG was obtained and interpreted by myself as normal sinus rhythm with PVCs at [address] changes. No STEMI. While BNP is slightly elevated at 191, I do feel that she requires fluid bolus. She has been responsive to the IV fluid boluses with an acceptable MAP. Patient was discussed with the hospitalist, Dr. Bre Covarrubias, for admission to the ICU. Additionally, I discussed the results with her and made him aware of the need for ICU admission. Patient is in guarded condition. History & Record Review Discussion w/independent historian: Patient and Family Lab Data Attestation: I reviewed the patient's lab results. Labs: Laboratory Results - last 24 hr 05/04/24 11:15 WBC 38.1 H* RBC 6.69 H Hgb 16.3 H Hct 54.4 H MCV 81.3 MCH 24.4 L MCHC 30.0 L RDW Std Deviation 66.4 H RDW Coeff of Joya 23.5 H Immature Gran % (Auto) 1.100 H Neut % (Auto) 94.0 H Lymph % (Auto) 3.0 L Alcorn % (Auto) 1.3 Eos % (Auto) 0.1 Baso % (Auto) 0.5 Absolute Neuts (auto) 35.8 H Absolute Lymphs (auto) 1.13 Nucleated RBC % 0.7 Differential Comment Diff Path Review May foll Platelet Estimate SLT DEC Plt Morphology Comment LARGE Anisocytosis 1+ PT 24.5 H INR 2.2 APTT 32.4 Sodium 134 L Potassium 3.5 Chloride 99 Carbon Dioxide 21.0 Anion Gap 15 BUN 38 H Creatinine 1.93 H Estim Creat Clear Calc 27.50 Est GFR (MDRD) Af Amer 32 L Est GFR (MDRD) Non-Af 27 L BUN/Creatinine Ratio 19.7 Glucose 91 Lactic Acid 7.9 H* Calcium 8.9 Total Bilirubin 2.50 H AST 18 ALT 12 L Alkaline Phosphatase 148 H Troponin I High Sens 316 H* B-Natriuretic Peptide 191.0 H Total Protein 7.0 Albumin 1.9 L Globulin 5.1 H Albumin/Globulin Ratio 0.4 L ABG Data ABG results: ABG 05/04/24 11:40 Specimen Type ART Sample Site R Radial pH 7.36 Bicarbonate Actual 16.9 L Total CO2 18 Base Excess -9 L O2 Saturation 93 L O2 % 100.0 ABG pCO2 29.6 L ABG pO2 69 L Azeem Test Positive Respiration Rate 12 O2 Delivery Device BiPAP Vent Mode Not entered POC PEEP 8 Radiography Diagnostic Testing: Clinical Impression(s) from Imaging Studies Chest X-Ray 05/04/24 11:29 IMPRESSION: Opacification of the left hemithorax suggestive of collapse of the left upper lobe. Possible atelectasis and/or infiltrate in the medial aspect of the right lower lobe. CT scan correlation recommended. Electronically Signed: Pedro Mazariegos MD at 12:19 EST , Management Discussion w/another healthcare provider: Hospitalist Critical Care Time Critical Care Time: Yes Critical care time (excluding procedures): 30-74 minutes (33), Including time spent:, Discussing w/Patient &/or Family/Route Sales Associate, Discussing w/Consultants, Arranging Admission or Transfer and Performing Direct Patient Care at Bedside Discharge Plan Dx/Rx/DC Orders Clinical Impression: Pneumonia, Septic shock, Respiratory failure, Acute kidney injury superimposed on chronic kidney disease Disposition Disposition: Acute Care Hospital [facility]
[2024-05-04] MEDS: Ceftriaxone 2 GM in 0.9% Normal Saline (50mL MB+) 50 ML IV (12:31)
[2024-05-04 12:33] LABS: ALB/GLOB Ratio 0.4 RATIO (0.9-2.4); AST(SGOT) 18 U/L (15-37); Alanine Aminotransfer ALT/SGPT 12 U/L (13-56); Albumin, Serum 1.9 g/dL (3.2-5.0); Alkaline Phosphatase 148 U/L (45-117); Anion Gap 15 (5-15); BUN 38 mg/dL (7-18); BUN/Creat Ratio 19.7 RATIO (10-20); Calcium,Total 8.9 mg/dL (8.5-10.1); Chloride 99 mmol/L (98-107); Creatinine, Serum 1.93 mg/dL (0.55-1.02); EST Glomerular Filtration Rate 27 mL/min (>60); Est Glom Filt Rate - Afr Amer 32 mL/min (>60); Globulin 5.1 g/dL (2.2-4.2); Glucose 91 mg/dL (74-106); Potassium 3.5 mmol/L (3.5-5.1); Sodium Level 134 mmol/L (136-145); Troponin-I HS 316 pg/mL (3.0-54.0)
[2024-05-04] MEDS: Azithromycin 500 MG in Dextrose 5%-Water (250mL Bag) 250 ML 250 MG IV (13:10)
--- NOTE | 2024-05-04 13:45 | ED.RN ---
Pt recieved 1,000 mL NS prior to Sepsis order set entered in by . Per Dr. Womack, pt is to receive a total of 2700. IV started in R AC, 500mL NS bolus started. Pt to receive another 1,000 mL bolus after antibiotics are complete since it is being used as piggyback.
--- NOTE | 2024-05-04 14:42 | PCM.HP.STD ---
HPI - General General Date of Admission: 05/04/24 Date of Service: 05/04/24 Chief Complaint: Hypoxia HPI Narrative TASHA MCNALLY, is a 78 F with a history of C. difficile, CVA, KALEIGH/asthma, CKD stage IIIa, thrombocytopenia who presented to [facility] ED 05/04/2024 for low pulse ox. Patient had been weak and having increased shortness of breath over the past week. She saw her doctor in the office and due to hypoxia she sent to the ED. Patient was hypoxic on arrival and required BiPAP placement, chest x-ray demonstrated a significant left-sided pneumonia and patient had elevated white blood cell count. She was given Rocephin and azithromycin. Additionally patient found to have elevated lactic acid, elevated troponin and low blood pressure and patient's presentation and labs suggested sepsis so patient was given fluid boluses and plan for ICU admission. Hospitalist contacted for admission. History obtained primarily per report as patient was able to shake head yes and no but is presently BiPAP dependent side difficulty with elaboration and was not at bedside. Per report in ED documentation patient has had progressive weakness and shortness of breath over the past 1 to 2 weeks as well as some confusion and poor p.o. intake over several days. Patient was able to relay that she had a temperature of 101 at home and has had a productive cough and some confusion intermittently. Also had bouts of lightheadedness, confusion, and nausea. Patient has history of C. difficile and when asked about diarrhea patient attempted to answer however was unable to answer sufficiently due to BiPAP and patient not stable to be taken off BiPAP at this time, was able to shake her head no that she is not presently being treated for C. difficile but cannot tell me if she has been having any kind of diarrhea. Not presently having abdominal pain, no urinary complaints. Does report she is currently feeling better than she did when she came in and was able to interact appropriately however again history limited due to patient being BiPAP dependent [facility] Medical History History of lupus Lacunar infarction Cerebral microvasculopathy Thickened endometrium Varicose veins of both lower extremities Remote history of stroke Synovial cyst of left popliteal space Vitamin D deficiency Mixed hyperlipidemia Lupus Lung nodules Impaired fasting glucose Hypersomnia CKD (chronic kidney disease) stage 3, GFR 30-59 ml/min Breast density Allergy-induced asthma Abnormal EKG Wears glasses Post-menopausal Arthritis History of renal disease High cholesterol History of Clostridium difficile infection Non-smoker History of edema Venous insufficiency of both lower extremities Peripheral vascular insufficiency Edema of both lower legs Traumatic open wound of lower leg with infection Cerebellar stroke Dizziness Left leg cellulitis HTN (hypertension) C. difficile colitis Diarrhea Left leg cellulitis Leukocytosis CEASAR (acute kidney injury) Home Medications ?Medication ?Instructions ?Recorded ?Last Taken ?Type cholecalciferol (vitamin D3) 50 50 mcg PO DAILY 08/06/23 05/03/24 History mcg (2,000 unit) capsule (Vitamin D3) avatrombopag 20 mg tablet 20 mg PO DAILY 05/04/24 Unknown History fluticasone propionate 50 2 spray intranasal DAILY 05/04/24 05/03/24 History mcg/actuation nasal spray,suspension lactobacillus combination no.4 3 3,000 mmu cells PO DAILY 05/04/24 05/03/24 History billion cell capsule spironolactone 25 mg tablet 12.5 mg PO DAILY 05/04/24 05/03/24 History Allergy/AdvReac Type Severity Reaction Status Date / Time fexofenadine (From Mar) Allergy Hives Verified 05/04/24 11:21 montelukast (From Singulair) AdvReac Intermediate Rash Verified 05/04/24 11:21 Family History Mother , throat and tongue Cancer Father , 92 Diabetes CVA (cerebral vascular accident) Other Breast cancer Hodgkin's disease Kidney disease Rheumatoid arthritis Surgical History Hx of laparoscopy Hx of local excision of skin lesion (~05/1999) Hx of breast biopsy H/O vein stripping Social History household members: spouse housing: house Smoking Status: Never smoker alcohol intake: never substance use type: does not use ROS ROS Narrative General: Patient with fevers at home HENT: Denies headache EYES: Did not report any vision changes Resp: Productive cough and increasing shortness of breath Cardiac: Denies chest pain GI: Denies abdominal pain, has had some nausea, ?possible stool changes : Denies changes in urination Extremity: Reports some swelling in her legs MSK: Generalized weakness Neuro: Denies any numbness/tingling Heme: Was unable to comment on this Skin: Some chronic leg changes Psychiatric: No complaints voiced Vital Signs Vital Signs Vital Signs: 05/04/24 11:12 05/04/24 11:19 05/04/24 11:30 Temperature 99.3 F H 99.3 F H Temperature Source Axillary Axillary Pulse Rate 120 H 105 H 103 H Respiratory Rate 43 H 24 H 35 H Respiratory Effort Respiratory Pattern Blood Pressure 99/53 L 99/53 L Blood Pressure Mean 68 68 Pulse Ox 91 81 90 Oxygen Delivery Method Nasal Cannula Nasal Cannula Oxygen Flow Rate (L/min) 6 6 Fraction of Inspired Oxygen (FIO2) 100 05/04/24 11:37 05/04/24 11:40 05/04/24 11:47 Temperature Temperature Source Pulse Rate 95 Respiratory Rate 28 H Respiratory Effort Short of Breath Labored Accessory Muscle Use Nasal Flaring Respiratory Pattern Tachypnea Blood Pressure 72/47 L Blood Pressure Mean 55 Pulse Ox 93 Oxygen Delivery Method Nasal Cannula Bi-pap Oxygen Flow Rate (L/min) 6 Fraction of Inspired Oxygen (FIO2) 05/04/24 11:48 05/04/24 12:11 05/04/24 12:27 Temperature 99.3 F H 98.9 F Temperature Source Axillary Axillary Pulse Rate 95 95 Respiratory Rate 28 H 28 H Respiratory Effort Respiratory Pattern Blood Pressure 72/47 L 92/63 Blood Pressure Mean 55 72 Pulse Ox 93 93 Oxygen Delivery Method Bi-pap Bi-pap Oxygen Flow Rate (L/min) Fraction of Inspired Oxygen (FIO2) 05/04/24 12:33 05/04/24 12:47 05/04/24 13:00 Temperature Temperature Source Pulse Rate 89 87 Respiratory Rate 26 H 26 H Respiratory Effort Respiratory Pattern Blood Pressure 104/68 96/54 L Blood Pressure Mean 80 68 Pulse Ox 96 96 Oxygen Delivery Method Bi-pap Bi-pap Oxygen Flow Rate (L/min) Fraction of Inspired Oxygen (FIO2) 90 05/04/24 13:18 05/04/24 13:57 05/04/24 14:00 Temperature 99.7 F H 99.7 F H 99.7 F H Temperature Source Axillary Axillary Pulse Rate 89 Respiratory Rate 30 H Respiratory Effort Respiratory Pattern Blood Pressure 98/61 Blood Pressure Mean 73 Pulse Ox 92 Oxygen Delivery Method Oxygen Flow Rate (L/min) Fraction of Inspired Oxygen (FIO2) 05/04/24 14:00 Temperature Temperature Source Pulse Rate 89 Respiratory Rate 31 H Respiratory Effort Respiratory Pattern Blood Pressure 91/68 Blood Pressure Mean 77 Pulse Ox 92 Oxygen Delivery Method Oxygen Flow Rate (L/min) Fraction of Inspired Oxygen (FIO2) Weight Weight: 90.1 kg Body Mass Index (BMI) 33.0 Physical Exam Narrative General: Alert, did seem to be able to answer questions yes and no fairly appropriately but unable to obtain formal orientation questions HEENT: Atraumatic, normocephalic Eyes: Anicteric, normal conjunctiva, extraocular movements grossly intact Neck: Supple Respiratory: Diffusely coarse left greater than right, mildly tachypneic Cardiovascular: Regular rate and rhythm GI: Soft, nontender, nondistended Extremities: No significant pitting edema Musculoskeletal: Moving all extremities Neuro: No overt focal neurological deficits Skin: Some chronic lower extremity changes Psych: Cooperative Results Lab / Micro Data 05/04/24 11:15 05/04/24 11:15 Labs: Laboratory Results - last 24 hr 05/04/24 11:15: WBC 38.1 H*, RBC 6.69 H, Hgb 16.3 H, Hct 54.4 H, MCV 81.3, MCH 24.4 L, MCHC 30.0 L, RDW Std Deviation 66.4 H, RDW Coeff of Joya 23.5 H, Immature Gran % (Auto) 1.100 H, Neut % (Auto) 94.0 H, Lymph % (Auto) 3.0 L, [place] % (Auto) 1.3, Eos % (Auto) 0.1, Baso % (Auto) 0.5, Absolute Neuts (auto) 35.8 H, Absolute Lymphs (auto) 1.13, Nucleated RBC % 0.7, Differential Comment , Diff Path Review October foll, Platelet Estimate SLT DEC, Plt Morphology Comment LARGE, Anisocytosis 1+, PT 24.5 H, INR 2.2, APTT 32.4, Sodium 134 L, Potassium 3.5, Chloride 99, Carbon Dioxide 21.0, Anion Gap 15, BUN 38 H, Creatinine 1.93 H, Estim Creat Clear Calc 27.50, Est GFR (MDRD) Af Amer 32 L, Est GFR (MDRD) Non-Af 27 L, BUN/Creatinine Ratio 19.7, Glucose 91, Lactic Acid 7.9 H*, Calcium 8.9, Total Bilirubin 2.50 H, AST 18, ALT 12 L, Alkaline Phosphatase 148 H, Troponin I High Sens 316 H*, B-Natriuretic Peptide 191.0 H, Total Protein 7.0, Albumin 1.9 L, Globulin 5.1 H, Albumin/Globulin Ratio 0.4 L Micro: Microbiology 05/04/24 11:45 Mucosa - Nose SARS-CoV-2, Influenza & RSV (PCR) - Final ABG Data ABG results: ABG 05/04/24 11:40 Specimen Type ART Sample Site R Radial pH 7.36 Bicarbonate Actual 16.9 L Total CO2 18 Base Excess -9 L O2 Saturation 93 L O2 % 100.0 ABG pCO2 29.6 L ABG pO2 69 L Azeem Test Positive Respiration Rate 12 O2 Delivery Device BiPAP Vent Mode Not entered POC PEEP 8 Imaging Radiology Impression Chest X-Ray 05/04/24 11:29 IMPRESSION: Opacification of the left hemithorax suggestive of collapse of the left upper lobe. Possible atelectasis and/or infiltrate in the medial aspect of the right lower lobe. CT scan correlation recommended. Electronically Signed: Pedro Mazariegos MD at 12:19 EST , Assessment & Plan Assessment/Plan (1) Sepsis: PLAN: Plan # Sepsis secondary to pneumonia -Chest x-ray and symptoms consistent with a right sided pneumonia -On presentation patient with white blood cell count of 38.1 with left shift, CEASAR with creatinine of 1.93, lactic acid of 7.9, total bilirubin 2.5, troponin of 316 and patient with blood pressure shortly after arrival of 72/47, also was initially tachycardic with rate in low 100s and has a respiratory rate in the 30s. Patient also febrile at home with a Tmax of 101 -Patient given 30 cc/kg of fluids -Blood cultures ordered -Blood pressure has been improving, still somewhat low but does not presently meet criteria for vasopressors -Patient with history of recurrent C. difficile, patient was unable to give answer regarding diarrhea/stool history and given significantly elevated white blood cell count we will check C. difficile -DuoNebs and as needed albuterol -Sputum culture, COVID ordered, respiratory panel ordered -UA still pending though highly suspect source is her pneumonia -Urine antigens -Mucinex, I/S -Given the significance of patient's presentation as well as unclear when her last hospitalization her antibiotics were we will place patient on Zosyn and continue azithromycin # Acute hypoxic respiratory failure secondary to underlying pneumonia complicated by history of mild asthma and KALEIGH -Patient with significant left-sided pneumonia, on presentation patient 81% on 6 L O2 and switched to BiPAP, has only been able to be weaned down to 90% on BiPAP, continue treatment as above and patient will be admitted to the ICU -Does seem to be slowly improving, do not think patient needs intubated at this time -Given the patient is going to the ICU and has significant sepsis and respiratory failure will have principal systems architect on board # CEASAR on CKD stage IIIa -Suspect secondary to underlying sepsis/infection -Presently 1.93 with baseline closer to 1 # History of C. difficile -Patient has been treated multiple times in the past, she is unable to answer about any kind of diarrhea or GI complaints (aside from denying abdominal pain) and is not safe to take her off BiPAP at this time for further history -Given patient significantly ill and has significantly elevated white blood cell count we will send C. difficile if patient is having diarrhea # Troponin elevation -Suspect secondary to sepsis and hypoxia -Patient denies any chest pain # Thrombocytopenia -Patient has followed with [facility], platelet count still pending, treat underlying sepsis, patient on avatrombopag at home #DVT ppx: Esther Covarrubias MD Time spent in the patient's overall evaluation,decision-making process, review of diagnostic data, adjustment of management, discussion with other providers, nursing nursing and ancillary staff involved in patient's care documentation, 80 Minutes Sepsis Attestation Sepsis Alert: Yes Sepsis Attestation: Agree w/Sepsis Date exam was performed: 05/04/24 Time exam was performed: 14:30 Possible Source of Sepsis: Pulmonary and GI tract/intra-abdominal Sepsis Organ Dysfunction Criteria Present: SBP < 90 mmHg or MAP < 65 mmHg, Acute Respiratory Failure (New need for BiPAP/CPAP or MV), Total Bilirubin > 2 mg/dl, INR > 1.5 or aPTT > 60 sec, Lactic Acid > 2 mmol/L and New/Unexplained change in mental status Fluid Resuscitation Fluid resuscitation indicated?: Yes Fluid Resuscitation ordered: 30 ml/kg fluid bolus ordered Sepsis Note Date exam was performed: 05/04/24 Time exam was performed: 16:57 Sepsis Attestation: Sepsis re-evaluation was performed Response to fluids: Fluid responsive hypotension Charges/Coding Visit Charges Inpatient E&M: 33079 Init Hosp L3
[2024-05-04] MEDS: 0.9% Normal Saline (1000mL) 1,000 ML 100 ML IV (15:27)
[2024-05-04] MEDS: Piperacil/Tazobactam 3.375 GM in 0.9% Normal Saline (50mL MB+) 50 ML IV ×2 (15:27→21:59)
[2024-05-04 15:36] LABS: Reflex Lactate? Y
[2024-05-04 16:41] LABS: Partial Thromboplast Time 34.5 Seconds (24.1-36.2)
[2024-05-04 16:42] LABS: Lactic Acid 3.6 mmol/L (0.4-1.9)
[2024-05-04 16:55] LABS: Troponin-I HS 294 pg/mL (3.0-54.0)
[2024-05-04] MEDS: Ipratropium/Albuterol Sulfate 3 ML AMPUL.NEB INHALATION ×2 (19:38→23:15)
[2024-05-04] MEDS: guaiFENesin 1,200 MG Tablet 1200 MG PO (21:59)
[2024-05-04] MEDS: 0.9% Saline Lock 10 ML Syringe IV (22:44)
[2024-05-04] MEDS: Vancomycin HCl 2,000 MG in 0.9% Normal Saline (500mL Bag) 500 ML 250 MG IV (22:45)
--- NOTE | 2024-05-04 23:03 | PHA.PHARE_ITS ---
Consult Antibiotic Management Pharmacy has been consulted to manage selected antibiotic: Vancomycin Type of Intervention Type of Consult: New start Labs Labs: Sodium 134 mmol/L (136-145) L 05/04/24 11:15 Potassium 3.5 mmol/L (3.5-5.1) 05/04/24 11:15 Chloride 99 mmol/L (98-107) 05/04/24 11:15 Carbon Dioxide 21.0 mmol/L (21.0-32.0) 05/04/24 11:15 Anion Gap 15 (5-15) 05/04/24 11:15 BUN 38 mg/dL (7-18) H 05/04/24 11:15 Creatinine 1.93 mg/dL (0.55-1.02) H 05/04/24 11:15 Est GFR (MDRD) Af Amer 32 mL/min (>60) L 05/04/24 11:15 Est GFR (MDRD) Non-Af 27 mL/min (>60) L 05/04/24 11:15 BUN/Creatinine Ratio 19.7 RATIO (10-20) 05/04/24 11:15 Glucose 91 mg/dL (74-106) 05/04/24 11:15 Microbiology Microbiology: Microbiology 05/04/24 11:15 Blood Culture (Wb) - Anticubital Left Blood Culture - Prelimi nary 05/04/24 11:45 Mucosa - Nose SARS-CoV-2, Influenza & RSV (PCR) - Final Dosing Weight Weight used for dosin.8 kg Estimated Creatinine Clearance Estimated Creatinine Clearance: 27.5 Goal Trough Goal Trough: 15-20 mcg/mL Pharmacy Plan for Drug Dosing Pharmacy Plan for Drug Dosing: Pharmacy Service will continue to monitor and adjust dosing as required. 2GM LOADING DOSE GIVEN @ 2244. START 1GM Q24H AND TROUGH PRIOR TO 3RD DOSE Follow-Up Labs Follow-Up Labs: Trough: Vancomycin Date/Time Labs Ordered Labs to be done on [date and time ordered]: 05/06 @ 2230
[2024-05-05] VITALS (37 sets, daily range): BP systolic 89–151; BP diastolic 50–99; PULSE 64–135; RESP 12–30; TEMP 36.4–36.6; O2SAT 93–98; BMI 33.7
[2024-05-05] MEDS: 0.9% Normal Saline (1000mL) 1,000 ML 100 ML IV ×2 (02:51→16:24)
--- NOTE | 2024-05-05 03:43 | EKG12_ITS ---
Test Reason : Blood Pressure : */* mmHG Vent. Rate : 129 BPM Atrial Rate : 141 BPM P-R Int : * ms QRS Dur : 92 ms QT Int : 382 ms P-R-T Axes : 74 93 59 degrees QTcB Int : 559 ms Probable Multifocal Atrial Tachycardia (MAT) Undetermined rhythm Rightward axis Low voltage QRS Cannot rule out Septal infarct , age undetermined Abnormal ECG No previous ECGs available Confirmed by Jovany Montalvo ([id number]), editor house organ JANE BURGESS ([id number]) on 05/05/2024 1:15:03 PM Referred By: Confirmed By: Jovany Montalvo
--- NOTE | 2024-05-05 03:58 | PN.HOSP_ITS ---
Hospitalist Note I was contacted by the [employer] and informed with patient went into AFIB with RVR with EKG revealing QT prolongation while on Azithromycin and prn IV Zofran which were stopped due to their known potential risk for QT-prolongation. She was continued on her IV Vancomycin and IV Zosyn as previous. I also spoke with the pharmacist about adding the Azithromycin to her list of allergies due to prolongation of QT interval. We also gave IV Digoxin for her AFIB with RVR at ~126-160 bpm with a blood pressure of 108/60 mmHg relatively contraindicating the use of IV Cardizem as it would likely worsen her hypotension. A review of her records also revealed an INR of 2.2 in spite of not being on any blood thinning agents indicating she is auto-anticoagulated - likely due to chronic liver disease. Therefore, no heparin or Lovenox was administered at this time due to increased risk of potential bleeding complications. [employer] was updated with plan.
[2024-05-05] MEDS: Digoxin 250 MCG/ML Ampul IV (05:18)
[2024-05-05] MEDS: Piperacil/Tazobactam 3.375 GM in 0.9% Normal Saline (50mL MB+) 50 ML IV ×3 (06:01→23:04)
--- NOTE | 2024-05-05 06:16 | RAD_ITS ---
STUDY: X-RAY CHEST REASON FOR EXAM: Female, 78 years old. Respiratory Failure TECHNIQUE: Single AP portable view of the chest. COMPARISON: Comparison is made with prior study dated May 04, 2024. FINDINGS: EKG electrodes are seen. There is persistent opacification of the left hemithorax with volume loss and shift of the heart and mediastinal structures to the left side of the midline. There is partial aeration of the left lung. Bronchial obstruction should be ruled out. Possible effusion. Persistent increased markings in the aspect of the right lower lobe suggesting a right lower lobe infiltrate. Normal size heart. Normal mediastinum and max. Normal visualized pulmonary arteries. Normal visualized aortic arch and descending thoracic aorta. There are diffuse degenerative changes of the visualized thoracic spine. Normal visualized ribs, clavicles, and shoulders. There is no demonstrated abnormality of the visualized soft tissue structures of the upper abdomen. RAD/Chest 1 View (Portable) IMPRESSION: Slight better aeration of the left lung although there is finding suggestive of a complete collapse of the left lung. Persistent infiltrate in the right lower lobe. Electronically Signed: Pedro Mazariegos MD at 8:44 EST ,
[2024-05-05 06:22] LABS: Absolute Lymphocyte Count 1.03 X10^3/uL (0.83-4.51); Absolute Neutrophil Count 38.1 X10^3/uL (2.0-7.7); Basophil# 0.15 X10^3/uL; Basophil% 0.4 % (0-1); Eosinophil# 0.01 X10^3/uL; Hematocrit 42.6 % (37-47); Hemoglobin 13.3 g/dL (12.0-15.0); Lymphocyte # 1.03 X10^3/ul (0.83-4.51); Lymphocyte % 2.5 % (19-41); Mean Corp Hgb Conc 31.2 g/dL (32-36); Mean Corpuscular Volume 80.1 fL (81-99); Monocyte# 0.63 X10^3/uL; Monocyte% 1.5 % (0-10); NRBC Flagged by Analyzer 0.5 % (0-5); Neutrophil # 38.06 X10^3/uL (2.7-7.7); Neutrophil % 93.2 % (47-70); POSITIVE COUNT YES; POSITIVE DIFFERENTIAL YES; POSITIVE MORPHOLOGY YES; Platelet Count 52 K/mm3 (150-450); RBC Distribution Width CV 23.2 % (11.6-14.6); RBC Distribution Width SD 65.4 fl (35.1-43.9); Red Blood Count 5.32 M/mm3 (4.2-5.4)
[2024-05-05 06:25] LABS: Differential Indicated SCAN CRITERIA MET; White Blood Count 40.9 K/mm3 (4.4-11.0)
[2024-05-05 06:47] LABS: ALB/GLOB Ratio 0.3 RATIO (0.9-2.4); AST(SGOT) 25 U/L (15-37); Alanine Aminotransfer ALT/SGPT 9 U/L (13-56); Albumin, Serum 1.3 g/dL (3.2-5.0); Alkaline Phosphatase 117 U/L (45-117); Anion Gap 9 (5-15); BUN 48 mg/dL (7-18); Chloride 108 mmol/L (98-107); Creatinine, Serum 1.78 mg/dL (0.55-1.02); EST Glomerular Filtration Rate 29 mL/min (>60); Est Glom Filt Rate - Afr Amer 36 mL/min (>60); Estimated Creatinine Clearance 29.52 ml/min; Globulin 3.9 g/dL (2.2-4.2); Glucose 91 mg/dL (74-106); Potassium 4.1 mmol/L (3.5-5.1); Protein, Total 5.2 g/dL (6.4-8.2); Sodium Level 136 mmol/L (136-145)
[2024-05-05 06:51] LABS: International Normalized Ratio 2.2; Prothrombin Time (Protime)PT. 24.5 SECONDS (11.7-14.9)
[2024-05-05 06:58] LABS: Anisocytosis RARE; Atypical Lymphocyte 1+ %; Burr Cells RARE; Differential Comment SCANNED; Platelet Estimate MOD DEC (ADEQ)
[2024-05-05] MEDS: Ipratropium/Albuterol Sulfate 3 ML AMPUL.NEB INHALATION ×5 (07:07→23:02)
--- NOTE | 2024-05-05 08:49 | EX.PCM.CONCC ---
Assessment & Plan Assessment/Plan (1) Sepsis: (2) Acute kidney injury superimposed on chronic kidney disease: (3) Respiratory failure: PLAN: Plan RECOMMENDATIONS: 1. Continue to microbials as ordered. Obtain infectious diseases consultation. 2. Attempt to wean from BiPAP to heated high flow cannula. 3. Continue bronchodilators. 4. Administer amiodarone bolus and initiate continuous infusion. 5. Obtain echocardiogram. 6. Obtain noncontrast chest CT. 7. Maintain n.p.o. status given tenuous respiratory state. IMPRESSIONS: 1. Acute hypoxemic respiratory failure Most likely related to underlying pneumococcal pneumonia, given the patient's presenting blood culture results. She does have significant lobar collapse on the left side. Therefore, will obtain noncontrasted chest CT for further clarification. In the interim, the patient can be weaned from BiPAP as tolerated to heated high flow oxygen, with a goal to maintain saturations at or above 90%. She will be continued on antimicrobial therapy along with bronchodilators. 2. Sepsis The patient presented with sepsis due to probable pneumonia with secondary bacteremia, with acute sepsis related organ dysfunction as evidenced by lactic acidemia, hyperbilirubinemia and acute respiratory failure requiring noninvasive positive pressure ventilatory support. The patient remains hemodynamically stable at the present time. Continue antimicrobials, while awaiting infectious diseases consultation. 3. Atrial fibrillation with RVR/troponin elevation The patient remains in atrial fibrillation with RVR this morning, despite having received digoxin. Therefore, we will plan to bolus amiodarone and start the patient on a continuous infusion. I suspect that her elevated troponin is likely secondary to demand ischemia in the setting of #1 and 2. In light of her underlying dysrhythmia and troponin elevation, will obtain echocardiogram. 4. Acute on chronic kidney disease Most likely prerenal in etiology in the setting of #1 and 2. Creatinine has improved somewhat following fluid resuscitation. Continue to monitor urine output for now. No current indication for renal replacement therapy. 5. History of thrombocytopenia/history of C. difficile colitis/troponin elevation Complicates care, management, recovery and prognosis. Continue home medications as indicated. Obtain echocardiogram. The patient should remain n.p.o. for now given tenuous respiratory status. TIME: 40 minutes of critical care time, independent of procedures, was spent addressing the patient's acute hypoxemic respiratory failure, sepsis, atrial fibrillation with RVR, acute on chronic kidney disease, review of all data and collaboration with care team. HPI Consult Data Date of Consult: 05/05/24 HPI Narrative Reason for Consultation: Respiratory failure HPI Narrative: The patient is a 78-year-old female, with a history as outlined below, who presented to the emergency department via EMS on May 04 with shortness of breath, generalized weakness and hypoxemia. The patient has a known history of recent C. difficile colitis, history of stroke, asthma, obstructive sleep apnea and chronic kidney disease. The patient is not on any maintenance inhalers at her baseline. According to documentation, the patient has a remote history of lupus along with thrombocytopenia, for which she has been followed by hematology on an outpatient basis. On presentation to the emergency department, the patient was documented to be febrile, tachycardic and tachypneic. Initial laboratory evaluation revealed an elevated white blood cell count of 38,000. Coagulation profile was notable for an INR of 2.2. Chemistry profile was notable for a creatinine of 1.93 with a lactate of 7.9. Total bilirubin was increased to 2.5. Troponin was elevated at 316 with a BNP of 191. Chest x-ray demonstrated opacification throughout the left hemithorax. Preliminary blood gas obtained on BiPAP demonstrated a pH of 7.36 with a pCO2 of 30 and pO2 of 69. The patient was initiated on broad-spectrum antimicrobials and admitted to the medical intensive care unit for further management. Overnight, the patient did develop atrial fibrillation with RVR, which was medically managed with digoxin. This morning, the patient remains in atrial fibrillation with RVR. She reported that her BiPAP mask is uncomfortable. [facility] Medical History History of lupus Lacunar infarction Cerebral microvasculopathy Thickened endometrium Varicose veins of both lower extremities Remote history of stroke Synovial cyst of left popliteal space Vitamin D deficiency Mixed hyperlipidemia Lupus Lung nodules Impaired fasting glucose Hypersomnia CKD (chronic kidney disease) stage 3, GFR 30-59 ml/min Breast density Allergy-induced asthma Abnormal EKG Wears glasses Post-menopausal Arthritis History of renal disease High cholesterol History of Clostridium difficile infection Non-smoker History of edema Venous insufficiency of both lower extremities Peripheral vascular insufficiency Edema of both lower legs Traumatic open wound of lower leg with infection Cerebellar stroke Dizziness Left leg cellulitis HTN (hypertension) C. difficile colitis Diarrhea Left leg cellulitis Leukocytosis CEASAR (acute kidney injury) Home Medications ?Medication ?Instructions ?Recorded ?Last Taken ?Type cholecalciferol (vitamin D3) 50 50 mcg PO DAILY 08/06/23 05/03/24 History mcg (2,000 unit) capsule (Vitamin D3) avatrombopag 20 mg tablet 20 mg PO DAILY 05/04/24 Unknown History fluticasone propionate 50 2 spray intranasal DAILY 05/04/24 05/03/24 History mcg/actuation nasal spray,suspension lactobacillus combination no.4 3 3,000 mmu cells PO DAILY 05/04/24 05/03/24 History billion cell capsule spironolactone 25 mg tablet 12.5 mg PO DAILY 05/04/24 05/03/24 History Allergy/AdvReac Type Severity Reaction Status Date / Time azithromycin Allergy Hives Verified 05/05/24 04:04 fexofenadine (From Mar) Allergy Hives Verified 05/04/24 11:21 montelukast (From Singulair) AdvReac Intermediate Rash Verified 05/04/24 11:21 Family History Mother , throat and tongue Cancer Father , 92 Diabetes CVA (cerebral vascular accident) Other Breast cancer Hodgkin's disease Kidney disease Rheumatoid arthritis Surgical History Hx of laparoscopy Hx of local excision of skin lesion (~05/1999) Hx of breast biopsy H/O vein stripping Social History household members: spouse housing: house Smoking Status: Never smoker alcohol intake: never substance use type: does not use ROS ROS Narrative 10 systems were reviewed with pertinent positives as noted in the HPI above. Physical Exam Const alert and no apparent distress Constitutional Narrative: Currently tolerating BiPAP therapy. General Appearance: cooperative and ill appearing HEENT normocephalic and head/scalp atraumatic Eyes PERRL, EOMs intact bilaterally and conjunctivae normal Neck supple General: trachea midline Chest inspection of chest normal Resp Effort and Inspection: tachypneic Auscultation: rhonchi and diminished lung sounds Cardio S1 normal heart sound and S2 normal heart sound Rate: tachycardic Rhythm: abnormal rhythm GI normal to inspection, nondistended, normoactive bowel sounds Extremity no clubbing, cyanosis or edema Skin no rashes or lesions noted Neuro CN's II-XII intact bilaterally, moves all extremities and no focal motor deficits Psych cooperative and affect normal Lab / Micro Data 05/05/24 06:10 05/05/24 06:10 Labs: Laboratory Results - last 24 hr 05/04/24 11:15: WBC 38.1 H*, RBC 6.69 H, Hgb 16.3 H, Hct 54.4 H, MCV 81.3, MCH 24.4 L, MCHC 30.0 L, RDW Std Deviation 66.4 H, RDW Coeff of Joya 23.5 H, Plt Count TNP, Immature Gran % (Auto) 1.100 H, Neut % (Auto) 94.0 H, Lymph % (Auto) 3.0 L, George % (Auto) 1.3, Eos % (Auto) 0.1, Baso % (Auto) 0.5, Absolute Neuts (auto) 35.8 H, Absolute Lymphs (auto) 1.13, Nucleated RBC % 0.7, Differential Comment , Diff Path Review May foll, Platelet Estimate SLT DEC, Plt Morphology Comment LARGE, Anisocytosis 1+, PT 24.5 H, INR 2.2, APTT 32.4, Sodium 134 L, Potassium 3.5, Chloride 99, Carbon Dioxide 21.0, Anion Gap 15, BUN 38 H, Creatinine 1.93 H, Estim Creat Clear Calc 27.50, Est GFR (MDRD) Af Amer 32 L, Est GFR (MDRD) Non-Af 27 L, BUN/Creatinine Ratio 19.7, Glucose 91, Lactic Acid 7.9 H*, Calcium 8.9, Total Bilirubin 2.50 H, AST 18, ALT 12 L, Alkaline Phosphatase 148 H, Troponin I High Sens 316 H*, B-Natriuretic Peptide 191.0 H, Total Protein 7.0, Albumin 1.9 L, Globulin 5.1 H, Albumin/Globulin Ratio 0.4 L 05/04/24 15:45: Lactic Acid 3.6 H* 05/04/24 16:00: APTT 34.5, Troponin I High Sens 294 H* 05/05/24 06:10: WBC 40.9 H*, RBC 5.32, Hgb 13.3, Hct 42.6, MCV 80.1 L, MCH 25.0 L, MCHC 31.2 L, RDW Std Deviation 65.4 H, RDW Coeff of Joya 23.2 H, Plt Count 52 L, MPV TNP, Immature Gran % (Auto) 2.400 H, Neut % (Auto) 93.2 H, Lymph % (Auto) 2.5 L, George % (Auto) 1.5, Eos % (Auto) 0.0, Baso % (Auto) 0.4, Absolute Neuts (auto) 38.1 H, Absolute Lymphs (auto) 1.03, Nucleated RBC % 0.5, Differential Comment SCANNED, Diff Path Review May foll, Atypical Lymphocytes 1+, Platelet Estimate MOD DEC, Anisocytosis RARE, Rusty Cells RARE, PT 24.5 H, INR 2.2, Sodium 136, Potassium 4.1, Chloride 108 H, Carbon Dioxide 19.0 L, Anion Gap 9, BUN 48 H, Creatinine 1.78 H, Estim Creat Clear Calc 29.52, Est GFR (MDRD) Af Amer 36 L, Est GFR (MDRD) Non-Af 29 L, BUN/Creatinine Ratio 27.0 H, Glucose 91, Calcium 8.0 L, Total Bilirubin 1.80 H, AST 25, ALT 9 L, Alkaline Phosphatase 117, Total Protein 5.2 L, Albumin 1.3 L, Globulin 3.9, Albumin/Globulin Ratio 0.3 L Micro: Microbiology 05/04/24 11:15 Blood Culture (Wb) - Anticubital Left Bacteria Detection (PCR) - Final Streptococcus pneumo 05/04/24 11:15 Blood Culture (Wb) - Anticubital Left Blood Culture - Preliminary Streptococcus pneumoniae 05/04/24 11:45 Mucosa - Nose SARS-CoV-2, Influenza & RSV (PCR) - Final ABG Data ABG results: ABG 05/04/24 11:40 Specimen Type ART Sample Site R Radial pH 7.36 Bicarbonate Actual 16.9 L Total CO2 18 Base Excess -9 L O2 Saturation 93 L O2 % 100.0 ABG pCO2 29.6 L ABG pO2 69 L Azeem Test Positive Respiration Rate 12 O2 Delivery Device BiPAP Vent Mode Not entered POC PEEP 8 Imaging Radiology Impression Chest X-Ray 05/04/24 11:29 IMPRESSION: Opacification of the left hemithorax suggestive of collapse of the left upper lobe. Possible atelectasis and/or infiltrate in the medial aspect of the right lower lobe. CT scan correlation recommended. Electronically Signed: Pedro Mazariegos MD at 12:19 EST , Chest X-Ray 05/05/24 06:16 IMPRESSION: Slight better aeration of the left lung although there is finding suggestive of a complete collapse of the left lung. Persistent infiltrate in the right lower lobe. Electronically Signed: Pedro Mazariegos MD at 8:44 EST , Charges/Coding Procedures Hospitalists Procedures: [id number] Critical Care 1st Hr
--- NOTE | 2024-05-05 09:10 | CT_ITS ---
STUDY: CT CHEST WITHOUT CONTRAST REASON FOR EXAM: Female, 78 years old. Lobar Collapse on CXR RADIATION DOSAGE (If Supplied By Facility): CTDIvol = ( 18.35 ) mGy, DLP = ( 706.21 ) mGycm TECHNIQUE: Transaxial imaging was performed without the administration of intravenous contrast material. Multiplanar coronal and sagittal images were reformatted. Individualized dose optimization techniques were used for this CT. COMPARISON: Comparison made with prior chest radiograph done earlier today. FINDINGS: CHEST There is complete collapse of the left upper lobe and lingular segment of the left upper lobe with air bronchograms. There is evidence of a consolidation in the posterior medial segment of the right lower lobe. Small left pleural effusion. Normal heart and pericardium. There is evidence of a mediastinal lymphadenopathy. There is evidence of a left hilar mass with narrowing of the bronchus of the left upper lobe. There is shift of the heart and mediastinal structures towards the left side of the midline. Normal unenhanced pulmonary arteries. Normal aorta arch and descending thoracic aorta. There are multi-level degenerative changes of the thoracic spine. There is no demonstrated abnormality of the visualized upper abdomen. CT/Chest without Contrast IMPRESSION: Left hilar mass and left sided mediastinal adenopathy with narrowing of the left upper lobe bronchus causing collapse of the left upper lobe and lingular segment of the left upper lobe. Mild loss/consolidation in the posterior medial segment of the right lower lobe. Shift of the heart and mediastinal structures towards the left side of the midline. Electronically Signed: Pedro Mazariegos MD at 9:54 EST ,
--- NOTE | 2024-05-05 09:17 | ECHOD_ITS ---
Reason For Study: Afib/Flutter Procedure This was a 2D Doppler, Color Flow transthoracic echocardiogram. Exam performed portable in ICU/CCU. Left Ventricle Normal LV size. Mild concentric left ventricular hypertrophy. The left ventricular ejection fraction is 65 %. Unable to assess diastolic function based on available data. Right Ventricle Normal right ventricle. Atria The left atrium is mildly enlarged. Normal right atrium. Mitral Valve Normal mitral valve. Tricuspid Valve Trivial tricuspid valve insufficiency. Unable to estimate RV systolic pressure due to insufficient tricuspid regurgitant envelope. Aortic Valve Trisinus/trileaflet aortic valve. Pulmonic Valve The pulmonic valve is not well visualized. Great Vessels Normal sized aortic root. Pericardium/Pleural No pericardial effusion. MMode/2D Measurements & Calculations LVIDd: 4.5 cm IVSd: 1.4 cm LVOT diam: 2.1 cm LVIDs: 2.8 cm LVPWd: 1.1 cm LVOT area: 3.4 cm2 RVDd: 3.7 cm FS: 37.3 % Ao root diam: 3.7 cm asc Aorta Diam: 3.6 cm LAV(MOD-bp): 42.4 ml LA dimension: 3.6 cm LAV(MOD-bp) Indexed: 21.6 ml/m2 LAV(MOD-sp2): 44.2 ml LAV(MOD-sp4): 39.0 ml SV(MOD-sp4): 39.1 ml SV(sp4-el): 40.3 ml LVAd ap4: 25.4 cm2 LVLd ap4: 8.4 cm SI(MOD-sp4): 19.9 ml/m2 EDV(MOD-sp4): 65.7 ml EDV(sp4-el): 65.2 ml LVAs ap4: 14.2 cm2 LVLs ap4: 6.9 cm ESV(MOD-sp4): 26.6 ml ESV(sp4-el): 25.0 ml EF(MOD-sp4): 59.5 % EF(sp4-el): 61.7 % LA A4 area: 16.1 cm2 RA A4 area: 16.7 cm2 TAPSE: 2.4 cm Time Measurements MV dec time: 0.26 sec Doppler Measurements & Calculations MV E max blanka: 73.6 cm/sec MV V2 max: 88.4 cm/sec MV P1/2t max blanka: 88.4 cm/sec MV A max blanka: 78.8 cm/sec MV max P.1 mmHg MV P1/2t: 90.3 msec MV E/A: 0.93 MV V2 mean: 50.5 cm/sec MV dec slope: 286.7 cm/sec2 MV mean P.2 mmHg MVA(P1/2t): 2.4 cm2 MV V2 VTI: 30.4 cm MVA(VTI): 2.5 cm2 Ao V2 max: 117.6 cm/sec LV V1 max: 106.5 cm/sec SV(LVOT): 75.3 ml Ao max P.5 mmHg LV V1 max P.5 mmHg Ao V2 mean: 82.3 cm/sec LV V1 mean P.9 mmHg Ao mean P.0 mmHg LV V1 mean: 62.9 cm/sec Ao V2 VTI: 24.1 cm LV V1 VTI: 22.0 cm AV (velocity ratio): 0.91 SHARA(I,D): 3.1 cm2 SHARA(V,D): 3.1 cm2 PA V2 max: 76.9 cm/sec PA max PG (full): -0.95 mmHg ECHO/Echo Complete Interpretation Summary Mild concentric left ventricular hypertrophy. The left ventricular ejection fraction is 65 %. The left atrium is mildly enlarged. Ordering Physician: Sukhwinder Wright Performed By: Dayne Grimm and Student
[2024-05-05] MEDS: Amiodarone 150 MG in Dextrose 5%-Water (100mL Bag) 100 ML 600 MG IV BOLUS (09:40)
[2024-05-05] MEDS: guaiFENesin 1,200 MG Tablet 1200 MG PO ×2 (09:41→20:53)
[2024-05-05] MEDS: Amiodarone 360 MG in Dextrose 5% Viaflo Bag 192.8 ML 33.3 MG CONT INF (09:53)
--- NOTE | 2024-05-05 10:38 | CASEMGMT ---
FLORES PERALES Assessment Face to Face with patient for initial transition planning/care coordination assessment. FLORES PERALES introduced self and role at [facility], pt voices understanding. Pt is A&Ox4 and is resting comfortably in bed and is calm. Pt is currently on Airvo. Care providers, pharmacy, and demographics verified. Admitting dx: PNA, Septic Shock LACE Strata: 3 PCP: Frank Salinas Specialists: Judy (Oncology) Preferred Pharmacy: [facility] Insurance: @Pay [facility] Prescription Benefit: Yes LNOK: Mario Roberson (H) Living Arrangements: Pt lives with her and 2 granddaughters (Ages 7 & 8) in a two story home with two steps to enter ADLs/IADLs: Pt reports that she is ind at baseline Transportation: Pt normally drives. drives. DME: Rollator. Built-in shower seat. FWW. BP Monitor. Pt educated about pulse ox purchasing options. Pt is currently requiring additional oxygen. If pt were to DC home and qualifies for oxygen, prefers [employer] (a verbal list of local in-network DME companies provided to the pt at this time). HHC/SNF: Denies history Pt?s goal: Return to PLOF Plan: TBD. 6-Click score is currently 14. PT/OT evaluations are pending. At this time, it is too early in the pt stay to determine disposition needs. ID is consulted. PICC ordered. Follow for home with HH and potential IV ATB needs. Follow for SNF needs. CARMEN and CM to continue to follow. Vicki Carlin RN, CM
--- NOTE | 2024-05-05 13:50 | CON.PCM.ID_ITS ---
Assessment & Plan Assessment/Plan (1) Sepsis: PLAN: 1 of 1 bcx with strep pneumo. L hilar mass and adenopathy seen on CT. Will check sputum cx, full resp pcr panel, MRSA screen. Cont vanc/zosyn for now. Will follow, thank you, d/w nursing (2) Acute kidney injury superimposed on chronic kidney disease: (3) Pneumonia: HPI Consult Data Date of Consult: 05/05/24 HPI Narrative Reason for Consultation: pneumonia HPI Narrative: TASHA MCNALLY, is a 78 F with h/o lupus, stroke, CKD, and cdiff, presented 05/04 to ED with 10 days progressive congestion, cough with green sputum, headache, sore throat. with URI recently. Has chronic loss of sense of taste. No body aches. Developed fever, some confusion, came to ED, given azithro/ceftriaxone, now admitted on vanc/zosyn. Feeling a little better, on O2. Full ROS performed and neg except as noted above. [facility] Medical History History of lupus Lacunar infarction Cerebral microvasculopathy Thickened endometrium Varicose veins of both lower extremities Remote history of stroke Synovial cyst of left popliteal space Vitamin D deficiency Mixed hyperlipidemia Lupus Lung nodules Impaired fasting glucose Hypersomnia CKD (chronic kidney disease) stage 3, GFR 30-59 ml/min Breast density Allergy-induced asthma Abnormal EKG Wears glasses Post-menopausal Arthritis History of renal disease High cholesterol History of Clostridium difficile infection Non-smoker History of edema Venous insufficiency of both lower extremities Peripheral vascular insufficiency Edema of both lower legs Traumatic open wound of lower leg with infection Cerebellar stroke Dizziness Left leg cellulitis HTN (hypertension) C. difficile colitis Diarrhea Left leg cellulitis Leukocytosis CEASAR (acute kidney injury) Home Medications ?Medication ?Instructions ?Recorded ?Last Taken ?Type cholecalciferol (vitamin D3) 50 50 mcg PO DAILY 08/06/23 05/03/24 History mcg (2,000 unit) capsule (Vitamin D3) avatrombopag 20 mg tablet 20 mg PO DAILY 05/04/24 Unknown History fluticasone propionate 50 2 spray intranasal DAILY 05/04/24 05/03/24 History mcg/actuation nasal spray,suspension lactobacillus combination no.4 3 3,000 mmu cells PO DAILY 05/04/24 05/03/24 History billion cell capsule spironolactone 25 mg tablet 12.5 mg PO DAILY 05/04/24 05/03/24 History Allergy/AdvReac Type Severity Reaction Status Date / Time azithromycin Allergy Hives Verified 05/05/24 04:04 fexofenadine (From Mar) Allergy Hives Verified 05/04/24 11:21 montelukast (From Singulair) AdvReac Intermediate Rash Verified 05/04/24 11:21 Family History Mother , throat and tongue Cancer Father , 92 Diabetes CVA (cerebral vascular accident) Other Breast cancer Hodgkin's disease Kidney disease Rheumatoid arthritis Surgical History Hx of laparoscopy Hx of local excision of skin lesion (~05/1999) Hx of breast biopsy H/O vein stripping Social History household members: spouse housing: house Smoking Status: Never smoker alcohol intake: never substance use type: does not use Physical Exam Const alert, oriented x3 and no apparent distress General Appearance: cooperative HEENT normocephalic and head/scalp atraumatic Eyes PERRL and EOMs intact bilaterally Neck supple and No nodes Resp Auscultation: wheezes and diminished lung sounds Cardio regular rate and regular rhythm GI soft to palpation, non-tender and non-distended Extremity General Extremity: Negative for edema Skin no rashes or lesions noted Neuro CN's II-XII intact bilaterally Lab / Micro Data Attestation: I reviewed the patient's lab results. 05/05/24 06:10 05/05/24 06:10 Labs: Laboratory Results - last 24 hr 05/04/24 11:15: Plt Count TNP 05/04/24 15:45: Lactic Acid 3.6 H* 05/04/24 16:00: APTT 34.5, Troponin I High Sens 294 H* 05/05/24 06:10: WBC 40.9 H*, RBC 5.32, Hgb 13.3, Hct 42.6, MCV 80.1 L, MCH 25.0 L, MCHC 31.2 L, RDW Std Deviation 65.4 H, RDW Coeff of Joya 23.2 H, Plt Count 52 L, MPV TNP, Immature Gran % (Auto) 2.400 H, Neut % (Auto) 93.2 H, Lymph % (Auto) 2.5 L, Randall % (Auto) 1.5, Eos % (Auto) 0.0, Baso % (Auto) 0.4, Absolute Neuts (auto) 38.1 H, Absolute Lymphs (auto) 1.03, Nucleated RBC % 0.5, Differential Comment SCANNED, Diff Path Review May foll, Atypical Lymphocytes 1+, Platelet Estimate MOD DEC, Anisocytosis RARE, Farrar Cells RARE, PT 24.5 H, INR 2.2, Sodium 136, Potassium 4.1, Chloride 108 H, Carbon Dioxide 19.0 L, Anion Gap 9, BUN 48 H , Creatinine 1.78 H, Estim Creat Clear Calc 29.52, Est GFR (MDRD) Af Amer 36 L, Est GFR (MDRD) Non-Af 29 L, BUN/Creatinine Ratio 27.0 H, Glucose 91, Calcium 8.0 L, Total Bilirubin 1.80 H, AST 25, ALT 9 L, Alkaline Phosphatase 117, Total Protein 5.2 L, Albumin 1.3 L, Globulin 3.9, Albumin/Globulin Ratio 0.3 L Micro: Microbiology 05/04/24 11:15 Blood Culture (Wb) - Anticubital Left Bacteria Detection (PCR) - Final Streptococcus pneumo 05/04/24 11:15 Blood Culture (Wb) - Anticubital Left Blood Culture - Preliminary Streptococcus pneumoniae 05/04/24 11:45 Mucosa - Nose SARS-CoV-2, Influenza & RSV (PCR) - Final Imaging Radiology Impression Chest X-Ray 05/05/24 06:16 IMPRESSION: Slight better aeration of the left lung although there is finding suggestive of a complete collapse of the left lung. Persistent infiltrate in the right lower lobe. Electronically Signed: Pedro Mazariegos MD at 8:44 EST , Chest CT 05/05/24 09:10 IMPRESSION: Left hilar mass and left sided mediastinal adenopathy with narrowing of the left upper lobe bronchus causing collapse of the left upper lobe and lingular segment of the left upper lobe. Mild loss/consolidation in the posterior medial segment of the right lower lobe. Shift of the heart and mediastinal structures towards the left side of the midline. Electronically Signed: Pedro Mazariegos MD at 9:54 EST ,
[2024-05-05] MEDS: FLU VACCINE **HIGH DOSE** TV 24-25 180 MCG/0.5 ML SYRINGE IM (14:32)
[2024-05-05 14:41] LABS: Pathologist Review Reviewed
[2024-05-05 14:43] LABS: Pathologist Review Reviewed
--- NOTE | 2024-05-05 16:02 | PN_ITS ---
Subjective Subjective Patient seen and examined. She had no active complaints. She was on BiPAP at time of review. She denies any cough, chest pain, palpitations, dizziness or any other symptoms. Review of systems otherwise negative. She was on FiO2 of 80% on BiPAP Objective Data Objective Data Vital Signs: Vital Signs Temp Pulse Resp BP Pulse Ox O2 Del Method O2 Flow Rate 97.6 F L 68 22 H 108/57 L 95 Airvo 55 05/05/24 04:00 05/05/24 15:46 05/05/24 15:46 05/05/24 13:00 05/05/24 15:46 05/05/24 13:17 05/05/24 13:17 FiO2 40 05/05/24 15:46 Oxygen Flow Rate (L/min) 55 Oxygen Delivery Method Airvo Weight: 202 lb 6.15 oz Body Mass Index (BMI) 33.7 Intake & Output: Intake and Output for Last 24 Hours 05/03/24 05/04/24 05/05/24 23:59 23:59 23:59 Intake Total 4355 / 4355 2743 / 2743 Output Total 0 / 0 300 / 300 Balance 4355 / 4355 2443 / 2443 Lab / Micro Data 05/05/24 06:10 05/05/24 06:10 Labs: Laboratory Results - last 24 hr 05/04/24 11:15: Plt Count TNP, Diff Path Review Reviewed 05/04/24 15:45: Lactic Acid 3.6 H* 05/04/24 16:00: APTT 34.5, Troponin I High Sens 294 H* 05/05/24 06:10: WBC 40.9 H*, RBC 5.32, Hgb 13.3, Hct 42.6, MCV 80.1 L, MCH 25.0 L, MCHC 31.2 L, RDW Std Deviation 65.4 H, RDW Coeff of Joya 23.2 H, Plt Count 52 L, MPV TNP, Immature Gran % (Auto) 2.400 H, Neut % (Auto) 93.2 H, Lymph % (Auto) 2.5 L, [place] % (Auto) 1.5, Eos % (Auto) 0.0, Baso % (Auto) 0.4, Absolute Neuts (auto) 38.1 H, Absolute Lymphs (auto) 1.03, Nucleated RBC % 0.5, Differential Comment SCANNED, Diff Path Review Reviewed, Atypical Lymphocytes 1+, Platelet Estimate MOD DEC, Anisocytosis RARE, Rusty Cells RARE, PT 24.5 H, INR 2.2, Sodium 136, Potassium 4.1, Chloride 108 H, Carbon Dioxide 19.0 L, Anion Gap 9, BUN 48 H , Creatinine 1.78 H, Estim Creat Clear Calc 29.52, Est GFR (MDRD) Af Amer 36 L, Est GFR (MDRD) Non-Af 29 L, BUN/Creatinine Ratio 27.0 H, Glucose 91, Calcium 8.0 L, Total Bilirubin 1.80 H, AST 25, ALT 9 L, Alkaline Phosphatase 117, Total Protein 5.2 L, Albumin 1.3 L, Globulin 3.9, Albumin/Globulin Ratio 0.3 L Micro: Microbiology 05/04/24 11:15 Blood Culture (Wb) - Anticubital Left Bacteria Detection (PCR) - Final Streptococcus pneumo 05/04/24 11:15 Blood Culture (Wb) - Anticubital Left Blood Culture - Preliminary Streptococcus pneumoniae 05/04/24 11:45 Mucosa - Nose SARS-CoV-2, Influenza & RSV (PCR) - Final Radiography Diagnostic Testing: Radiology Impression Chest X-Ray 05/05/24 06:16 IMPRESSION: Slight better aeration of the left lung although there is finding suggestive of a complete collapse of the left lung. Persistent infiltrate in the right lower lobe. Electronically Signed: Pedro Mazariegos MD at 8:44 EST , Chest CT 05/05/24 09:10 IMPRESSION: Left hilar mass and left sided mediastinal adenopathy with narrowing of the left upper lobe bronchus causing collapse of the left upper lobe and lingular segment of the left upper lobe. Mild loss/consolidation in the posterior medial segment of the right lower lobe. Shift of the heart and mediastinal structures towards the left side of the midline. Electronically Signed: Pedro Mazariegos MD at 9:54 EST , Echocardiogram 05/05/24 09:17 Interpretation Summary Mild concentric left ventricular hypertrophy. The left ventricular ejection fraction is 65 %. The left atrium is mildly enlarged. Ordering Physician: Sukhwinder Wright Performed By: Dayne Grimm and Student Physical Exam Const alert, oriented x3 and no apparent distress Constitutional Narrative: frail, weak General Appearance: cooperative HEENT normocephalic, head/scalp atraumatic, moist oral mucous membranes and oropharynx normal Eyes PERRL and EOMs intact bilaterally Neck no lymphadenopathy and supple Resp Resp Narrative: moderately diminished breath sounds bibasally, no wheezes, few crackles. ON BIPAP Cardio regular rate, regular rhythm, S1 normal heart sound, S2 normal heart sound and no murmurs GI normal to inspection, nondistended, normoactive bowel sounds, soft to palpation, non-tender and non-distended Extremity normal capillary refill, no clubbing, cyanosis or edema and no calf tenderness General Extremity: no tenderness to palpation of joints or extremities Skin General Skin Exam: no breakdown Neuro CN's II-XII intact bilaterally, no focal motor deficits, no sensory deficits noted and deep tendon reflexes 2+ bilaterally Motor Exam: strength 5/5 throughout and general weakness Psych thought process normal and cooperative Appearance: appropriate Assessment & Plan Assessment/Plan (1) Sepsis: (2) Respiratory failure: (3) Acute kidney injury superimposed on chronic kidney disease: (4) Septic shock: PLAN: Plan #Sepsis due to pneumonia * admitted with a complaint of shortness of breath and images showed right sided pneumonia. * wbc was elevated at 38.1 and is 40 today. * She was tachycardic and tachypneic on admission and was also febrile. * hydrated with IVF per sepsis protocol * ID on board * COVID is negative. Respiratory panel negative. Sputum cultures and blood cultures pending. * Urine for strep and Legionella antigens were negative. * was started on IV ceftriaxone and azithromycin; now on IV vancomycin and zosyn. * Chest x-ray on admission showed findings suggestive of a complete collapse of the left lung and persistent infiltrate in the right lower lobe. * CT chest showed a left hilar mass and left-sided mediastinal lymphadenopathy with narrowing of the left upper lobe bronchus causing collapse of the left upper lobe and lingula segment of the left lower lobe with mild loss versus consolidation in the posterior medial segment of the right lower lobe and shift of the heart and mediastinal structures towards the left of the midline #Acute hypoxic respiratory failure due to pneumonia and left hilar mass with collapse of the left upper lobe * on BIPAP at 80% FiO2 * titrate oxyten to maintain sats >90% * breathing treatment with bronchodilators * vp integration on board * 2D echo showed EF of 65% and unable to assess diastolic function. * CT chest as above #Left lung mass: As above. Management as per pulmonology #CEASAR on CKD IIIa * Cr was 1.93 on admission. Creatinine is now down to 1.78. Her baseline is around 1.05. * Been hydrated gently with IV fluids. Will trend creatinine. #A-fib with RVR. * Patient went into A-fib with RVR this morning. * She did receive some digoxin. * She was started on amiodarone bolus and amiodarone drip. * 2D echo as above. * #Elevated troponins * Thought to be due to sepsis and A-fib with RVR. * Will trend troponins. * Initial troponin was 316 and trended down to 294. 2D echo as above. # History of C Diff * currently not having diarrhea. * She has had numerous episodes of C Diff. * ID on board #Thrombocytopenia * Platelets of 52 today. She does have a history of thrombocytopenia from December 2023 with platelets being as low as 28. Will monitor for now. If he drops any further consider hematology consult #Transaminitis: Total bilirubin was 2.5 and is now down to 1.8. Was likely due to sepsis and acute illness. Will monitor. #DVT prophylaxis; SCDs Charges/Coding Visit Charges Inpatient E&M: 33252 Subs Hosp L3
[2024-05-05] MEDS: Amiodarone 360 MG in Dextrose 5% Viaflo Bag 192.8 ML 16.7 MG CONT INF (16:10)
[2024-05-05 18:40] LABS: Mucous, Urine 0 SEEN /hpf (<or=2+)
[2024-05-05 19:33] LABS: Color, Urine Yellow (Yellow); Glucose, Dipstick Normal (Normal); Ketone-Dipstick Negative (Negative); Leukocyte Esterase-Dipstick 100 /ul (Negative); Nitrite-Dipstick Negative (Negative); Occult Blood-Urine 25 /ul (Negative); Protein-Dipstick 30 mg/dl (Negative); Specific Gravity, Urine 1.015 (1.002-1.030); Urine Clarity Sl. Cloudy (Clear); Urine Urobilinogen 4 mg/dl (Normal)
[2024-05-05 19:37] LABS: Urine Bilirubin Dipstick 1 mg/dL (Negative)
[2024-05-05 20:00] LABS: Bacteria 4+ /hpf (None Seen); Red Blood Cells-Urine 0-5 SEEN /hpf (0-5); Squamous Epithelial Cells - UA 0-5 SEEN /hpf (5-10); White Blood Cells 0-5 SEEN /hpf (0-5)
[2024-05-05] MEDS: Vancomycin IV 1,000 MG/200 ML BAG 200 MG IV (21:46)
[2024-05-06] VITALS (21 sets, daily range): BP systolic 104–156; BP diastolic 67–95; PULSE 53–81; RESP 12–26; TEMP 36.3–36.6; O2SAT 92–99; BMI 33.8
[2024-05-06] MEDS: 0.9% Normal Saline (1000mL) 1,000 ML 100 ML IV (02:05)
[2024-05-06] MEDS: Ipratropium/Albuterol Sulfate 3 ML AMPUL.NEB INHALATION ×5 (02:09→23:43)
[2024-05-06] MEDS: Amiodarone 360 MG in Dextrose 5% Viaflo Bag 192.8 ML 16.7 MG CONT INF (04:09)
[2024-05-06] MEDS: Piperacil/Tazobactam 3.375 GM in 0.9% Normal Saline (50mL MB+) 50 ML IV (05:12)
[2024-05-06] MEDS: 0.9% Saline Lock 10 ML Syringe IV (05:16)
[2024-05-06 05:43] LABS: Hematocrit 46.3 % (37-47); Hemoglobin 14.6 g/dL (12.0-15.0); Mean Corp Hgb Conc 31.5 g/dL (32-36); Mean Corpuscular Hgb 24.8 pg (27.0-32.0); Mean Corpuscular Volume 78.6 fL (81-99); POSITIVE COUNT YES; POSITIVE DIFFERENTIAL YES; POSITIVE MORPHOLOGY YES; RBC Distribution Width CV 23.1 % (11.6-14.6); RBC Distribution Width SD 62.7 fl (35.1-43.9); Red Blood Count 5.89 M/mm3 (4.2-5.4)
[2024-05-06 05:47] LABS: Differential Indicated MANUAL DIFF; Platelet Count 31 K/mm3 (150-450); White Blood Count 33.9 K/mm3 (4.4-11.0)
[2024-05-06 06:09] LABS: ALB/GLOB Ratio 0.3 RATIO (0.9-2.4); AST(SGOT) 15 U/L (15-37); Alanine Aminotransfer ALT/SGPT 9 U/L (13-56); Albumin, Serum 1.4 g/dL (3.2-5.0); Alkaline Phosphatase 122 U/L (45-117); Anion Gap 7 (5-15); BUN 57 mg/dL (7-18); BUN/Creat Ratio 32.4 RATIO (10-20); Calcium,Total 8.2 mg/dL (8.5-10.1); Chloride 108 mmol/L (98-107); Creatinine, Serum 1.76 mg/dL (0.55-1.02); EST Glomerular Filtration Rate 30 mL/min (>60); Est Glom Filt Rate - Afr Amer 36 mL/min (>60); Estimated Creatinine Clearance 29.92 ml/min; Globulin 4.3 g/dL (2.2-4.2); Glucose 124 mg/dL (74-106); Potassium 3.5 mmol/L (3.5-5.1); Protein, Total 5.7 g/dL (6.4-8.2); Sodium Level 137 mmol/L (136-145)
[2024-05-06 07:06] LABS: Lymphocyte 5 % (19-41); Metamyelocyte 1 % (0-1); Monocyte 2 % (0-10); Myelocyte 1 % (0-0); Neutrophil-Band 2 % (0-5); Neutrophil-Segmented 88 % (47-70); Nucleated Red Bld Cells,Manual 2 % (0-5); Other WBC Type 1 %; Total Cells Counted 100 (MANUAL DIFF)
[2024-05-06 07:07] LABS: Platelet Estimate MKD DEC (ADEQ)
[2024-05-06 07:08] LABS: Anisocytosis 1+
[2024-05-06 07:09] LABS: Absolute Neutrophil Count 30.5 X10^3/uL (2.0-7.7)
--- NOTE | 2024-05-06 09:25 | PCM.PN.INT ---
Assessment & Plan Assessment/Plan (1) Sepsis: (2) Acute kidney injury superimposed on chronic kidney disease: (3) Respiratory failure: PLAN: Plan RECOMMENDATIONS: 1. Continue antimicrobials per ID recommendations. 2. Continue to wean FiO2 to maintain saturations at or above 90%. 3. Continue scheduled bronchodilators. 4. Okay to discontinue amiodarone. 5. Encourage incentive spirometer use and mobilize patient as tolerated. 6. Recommend follow-up CT chest 6 to 8 weeks after discharge. 7. The patient is medically stable for transfer out of the intensive care unit. IMPRESSIONS: 1. Acute hypoxemic respiratory failure Most likely related to underlying pneumococcal pneumonia, given the patient's presenting blood culture results. She does have significant lobar collapse on the left side, with possible left hilar mass and adenopathy noted on CT imaging. Overall, the patient's oxygen status has improved significantly with antimicrobial therapy. She will be continued on antibiotics per ID recommendations. Supplemental oxygen will be weaned to maintain saturations at or above 90%. I would recommend that the patient have a repeat CT chest completed 6 to 8 weeks after discharge. 2. Sepsis The patient presented with sepsis due to pneumococcal pneumonia with secondary bacteremia, with acute sepsis related organ dysfunction as evidenced by lactic acidemia, hyperbilirubinemia and acute respiratory failure requiring noninvasive positive pressure ventilatory support. The patient remains hemodynamically stable. Continue antimicrobials per ID recommendations. 3. Atrial fibrillation with RVR/troponin elevation Resolved. The patient experienced transient atrial fibrillation with RVR, which responded to medical therapy with amiodarone. She is currently in normal sinus rhythm. Echocardiogram was unremarkable. I suspect that her elevated troponin is likely secondary to demand ischemia in the setting of #1 and 2. 4. Acute on chronic kidney disease Most likely prerenal in etiology in the setting of #1 and 2. Creatinine has improved somewhat following fluid resuscitation. Continue to monitor urine output for now. No current indication for renal replacement therapy. 5. History of thrombocytopenia/history of C. difficile colitis/troponin elevation Complicates care, management, recovery and prognosis. Continue home medications as indicated. This note was generated with [employer] software. It may contain incorrect words, spelling, and punctuation that were not noted in checking the note before signing. Subjective Subjective The patient was seen and examined at the bedside this morning. Events from the last 24 hours have been reviewed. The patient is currently afebrile, hemodynamically stable and maintaining appropriate oxygen saturations on heated high flow oxygen with an FiO2 requirement of 40%. Overall, over the last 24 hours, the patient's oxygen requirement has improved significantly. White blood cell count has improved to 34,000. The patient is thrombocytopenic with a platelet count of 31,000. Creatinine is stable at 1.76. The patient converted to normal sinus rhythm. Objective Data Objective Data The patient's most recent lab work, culture data and imaging studies have all been personally reviewed. Surface echocardiogram demonstrated normal LV size and function with an ejection fraction of 65%. Strep pneumo urinary antigen was positive. Blood cultures dated May 04 were positive for Streptococcus pneumonia. Vital Signs: Vital Signs Temp Pulse Resp BP Pulse Ox O2 Del Method O2 Flow Rate 98 F 60 25 H 133/77 H 96 Airvo 50 05/06/24 00:00 05/06/24 07:02 05/06/24 07:02 05/06/24 07:00 05/06/24 07:02 05/06/24 07:00 05/06/24 07:00 FiO2 40 05/06/24 07:02 Oxygen Flow Rate (L/min) 50 Oxygen Delivery Method Airvo Weight: 203 lb 4.259 oz Body Mass Index (BMI) 33.8 Intake & Output: Intake and Output for Last 24 Hours 05/04/24 05/05/24 05/06/24 23:59 23:59 23:59 Intake Total 4355 / 4355 3193 / 3193 1268.33 / 1268.33 Output Total 0 / 0 600 / 600 Balance 4355 / 4355 2593 / 2593 1268.33 / 1268.33 Lab / Micro Data Attestation: I reviewed the patient's lab results. 05/06/24 05:20 05/06/24 05:20 Labs: Laboratory Results - last 24 hr 05/04/24 11:15: Diff Path Review Reviewed 05/05/24 06:10: Diff Path Review Reviewed 05/05/24 18:15: Urine Color Yellow, Urine Clarity Sl. Cloudy, Urine pH 5.0, Ur Specific [place] 1.015, Urine Protein 30 H, Urine Glucose (UA) Normal, Urine Ketones Negative, Urine Occult Blood 25 H, Urine Nitrite Negative, Urine Bilirubin 1 H, Urine Urobilinogen 4 H, Ur Leukocyte Esterase 100 H, Urine RBC 0-5 SEEN, Urine WBC 0-5 SEEN, Ur Squamous Epith Cells 0-5 SEEN, Urine Bacteria 4+, Urine Mucus 0 SEEN 05/06/24 05:20: WBC 33.9 H*, RBC 5.89 H, Hgb 14.6, Hct 46.3, MCV 78.6 L, MCH 24.8 L, MCHC 31.5 L, RDW Std Deviation 62.7 H, RDW Coeff of Joya 23.1 H, Plt Count 31 L*, MPV Not Reportable, Neut % (Auto) Not Reportable, Absolute Neuts (auto) 30.5 H, Absolute Lymphs (auto) 1.70, Total Counted 100, Neutrophils % (Manual) 88 H, Band Neutrophils % 2, Lymphocytes % (Manual) 5 L, Monocytes % (Manual) 2, Metamyelocytes % 1, Myelocytes % 1 H, Other Cells % 1, Nucleated RBCs/100 WBC 2, Diff Path Review October, Platelet Estimate MKD DEC, Anisocytosis 1+, Sodium 137, Potassium 3.5, Chloride 108 H, Carbon Dioxide 22.0, Anion Gap 7, BUN 57 H, Creatinine 1.76 H, Estim Creat Clear Calc 29.92, Est GFR (MDRD) Af Amer 36 L, Est GFR (MDRD) Non-Af 30 L, BUN/Creatinine Ratio 32.4 H, Glucose 124 H, Calcium 8.2 L, Total Bilirubin 1.60 H, AST 15, ALT 9 L, Alkaline Phosphatase 122 H, Total Protein 5.7 L, Albumin 1.4 L, Globulin 4.3 H, Albumin/Globulin Ratio 0.3 L Micro: Microbiology 05/04/24 11:15 Blood Culture (Wb) - Anticubital Left Bacteria Detection (PCR) - Final Streptococcus pneumo 05/04/24 11:15 Blood Culture (Wb) - Anticubital Left Blood Culture - Final Streptococcus pneumoniae 05/05/24 17:26 Mucosa - Nose Respiratory Panel (PCR) - Final 05/05/24 17:30 Nasal Secretion MRSA (PCR) - Final 05/05/24 18:15 Urine, Clean Catch Legionella Antigen - Final 05/05/24 18:15 Urine, Clean Catch Streptococcus pneumoniae Antigen (M - Final Streptococcus pneumonia Ag 05/04/24 11:45 Mucosa - Nose SARS-CoV-2, Influenza & RSV (PCR) - Final Radiography Diagnostic Testing: Radiology Impression Chest CT 05/05/24 09:10 IMPRESSION: Left hilar mass and left sided mediastinal adenopathy with narrowing of the left upper lobe bronchus causing collapse of the left upper lobe and lingular segment of the left upper lobe. Mild loss/consolidation in the posterior medial segment of the right lower lobe. Shift of the heart and mediastinal structures towards the left side of the midline. Electronically Signed: Pedro Mazariegos MD at 9:54 EST , Echocardiogram 05/05/24 09:17 Interpretation Summary Mild concentric left ventricular hypertrophy. The left ventricular ejection fraction is 65 %. The left atrium is mildly enlarged. Ordering Physician: Sukhwinder Wright Performed By: Dayne Grimm and Student Physical Exam Const alert, oriented x3 and no apparent distress General Appearance: cooperative HEENT normocephalic and head/scalp atraumatic Eyes PERRL, EOMs intact bilaterally and conjunctivae normal Neck supple General: trachea midline Chest inspection of chest normal Resp normal respiratory effort Auscultation: diminished lung sounds; Negative for rales, rhonchi or wheezes Cardio regular rate, regular rhythm, S1 normal heart sound and S2 normal heart sound GI normal to inspection, nondistended, normoactive bowel sounds Extremity no clubbing, cyanosis or edema Skin no rashes or lesions noted Neuro CN's II-XII intact bilaterally, moves all extremities and no focal motor deficits Psych cooperative and affect normal Charges/Coding Visit Charges Inpatient E&M: 93069 Subs Hosp L3
--- NOTE | 2024-05-06 09:46 | PCM.PN.ID ---
Physical Exam Narrative Feeling a little better, still cough and sputum. No fever, no diarrhea. Const alert and no apparent distress Resp Auscultation: rhonchi and wheezes Cardio regular rate and regular rhythm GI soft to palpation, non-tender and non-distended Skin no rashes or lesions noted ID ID: Route of nutrition/ use of supplements: [] Nutritional Intake: [] IV Site: [] Ordonez Catheter: [] Assessment & Plan Assessment/Plan (1) Sepsis: PLAN: Bacteremia with strep pneumo. S pneumo UAg (+). L hilar mass and adenopathy seen on CT. Question if this is post-obstructive pneumonia. Will narrow to ceftriaxone/flagyl. Has h/o cdiff. Will follow (2) Acute kidney injury superimposed on chronic kidney disease: (3) Pneumonia:
[2024-05-06] MEDS: guaiFENesin 1,200 MG Tablet 1200 MG PO ×2 (09:55→21:25)
[2024-05-06] MEDS: Ceftriaxone 2 GM in 0.9% Normal Saline (50mL MB+) 50 ML IV (10:35)
--- NOTE | 2024-05-06 13:14 | PCM.PN.HOSP ---
Reason for Visit Reason for Visit: Diagnoses Sepsis, unspecified organism (05/04/24) Pneumonia, unspecified organism (05/04/24) Respiratory failure, unspecified, unspecified whether with hypoxia or hypercapnia (05/04/24) Acute kidney failure, unspecified (05/04/24) Chronic kidney disease, unspecified (05/04/24) Severe sepsis with septic shock (05/04/24) Objective Data Objective Data Vital Signs: Vital Signs Temp Pulse Resp BP Pulse Ox O2 Del Method O2 Flow Rate 97.6 F L 64 19 H 139/95 H 96 Airvo 40 05/06/24 10:00 05/06/24 10:00 05/06/24 10:00 05/06/24 10:00 05/06/24 10:00 05/06/24 10:00 05/06/24 10:00 FiO2 50 05/06/24 10:00 Oxygen Flow Rate (L/min) 40 Oxygen Delivery Method Airvo Weight: 203 lb 4.259 oz Body Mass Index (BMI) 33.8 Intake & Output: Intake and Output for Last 24 Hours 05/04/24 05/05/24 05/06/24 23:59 23:59 23:59 Intake Total 4355 / 4355 3193 / 3193 2636.54 / 2636.54 Output Total 0 / 0 600 / 600 Balance 4355 / 4355 2593 / 2593 2636.54 / 2636.54 Lab / Micro Data 05/06/24 05:20 05/06/24 05:20 Labs: Laboratory Results - last 24 hr 05/04/24 11:15: Diff Path Review Reviewed 05/05/24 06:10: Diff Path Review Reviewed 05/05/24 18:15: Urine Color Yellow, Urine Clarity Sl. Cloudy, Urine pH 5.0, Ur Specific [place] 1.015, Urine Protein 30 H, Urine Glucose (UA) Normal, Urine Ketones Negative, Urine Occult Blood 25 H, Urine Nitrite Negative, Urine Bilirubin 1 H, Urine Urobilinogen 4 H, Ur Leukocyte Esterase 100 H, Urine RBC 0-5 SEEN, Urine WBC 0-5 SEEN, Ur Squamous Epith Cells 0-5 SEEN, Urine Bacteria 4+, Urine Mucus 0 SEEN 05/06/24 05:20: WBC 33.9 H*, RBC 5.89 H, Hgb 14.6, Hct 46.3, MCV 78.6 L, MCH 24.8 L, MCHC 31.5 L, RDW Std Deviation 62.7 H, RDW Coeff of Joya 23.1 H, Plt Count 31 L*, MPV Not Reportable, Neut % (Auto) Not Reportable, Absolute Neuts (auto) 30.5 H, Absolute Lymphs (auto) 1.70, Total Counted 100, Neutrophils % (Manual) 88 H, Band Neutrophils % 2, Lymphocytes % (Manual) 5 L, Monocytes % (Manual) 2, Metamyelocytes % 1, Myelocytes % 1 H, Other Cells % 1, Nucleated RBCs/100 WBC 2, Diff Path Review October, Platelet Estimate MKD DEC, Anisocytosis 1+, Sodium 137, Potassium 3.5, Chloride 108 H, Carbon Dioxide 22.0, Anion Gap 7, BUN 57 H, Creatinine 1.76 H, Estim Creat Clear Calc 29.92, Est GFR (MDRD) Af Amer 36 L, Est GFR (MDRD) Non-Af 30 L, BUN/Creatinine Ratio 32.4 H, Glucose 124 H, Calcium 8.2 L, Total Bilirubin 1.60 H, AST 15, ALT 9 L, Alkaline Phosphatase 122 H, Total Protein 5.7 L, Albumin 1.4 L, Globulin 4.3 H, Albumin/Globulin Ratio 0.3 L Micro: Microbiology 05/05/24 18:15 Urine, Catheterized Urine Culture - Preliminary GNR lactose group cio 05/04/24 11:15 Blood Culture (Wb) - Anticubital Left Bacteria Detection (PCR) - Final Streptococcus pneumo 05/04/24 11:15 Blood Culture (Wb) - Anticubital Left Blood Culture - Final Streptococcus pneumoniae 05/05/24 17:26 Mucosa - Nose Respiratory Panel (PCR) - Final 05/05/24 17:30 Nasal Secretion MRSA (PCR) - Final 05/05/24 18:15 Urine, Clean Catch Legionella Antigen - Final 05/05/24 18:15 Urine, Clean Catch Streptococcus pneumoniae Antigen (M - Final Streptococcus pneumonia Ag 05/04/24 11:45 Mucosa - Nose SARS-CoV-2, Influenza & RSV (PCR) - Final Radiography Diagnostic Testing: Radiology Impression Echocardiogram 05/05/24 09:17 Interpretation Summary Mild concentric left ventricular hypertrophy. The left ventricular ejection fraction is 65 %. The left atrium is mildly enlarged. Ordering Physician: Sukhwinder Wright Performed By: Dayne Grimm and Student Physical Exam Narrative Seen and examined Patient is short of breath even at rest. She states that she is not certain whether shortness of breath is getting better but has not gotten worse. On Airvo 50% FiO2 Physical exam General: Alert, Oriented x3, Cooperative HEENT: Atraumatic, PERRLA, EOMI, Normocephalic Oral: No Gingival or Mucosal Lesions/ Ulcerations Neck: Supple, No JVD, Negative Carotid Bruits Chest wall/Lungs: Air entry diminished in bilateral lungs. Bilateral coarse crepitations. Mild tachypnea Cardiovascular: Sinus rhythm 60 to 64/min, Normal S1, Normal S2, No M/G/R Abdomen: Bowel Sounds Present, Soft, Non Tender, Non-Distended : No dysuria. No renal angle tenderness. No suprapubic tenderness. Extremities: Minimal to mild edema, Capillary Refill Less than 3 Seconds Skin: No rashes, No breakdown Musculoskeletal: No Tenderness to Palpation of Joints or Extremities Neurological: Cranial nerves II-XII grossly intact, DTR 2+/4. No acute focal neurological deficit. Psych/Mental Status: Flat affect. Assessment & Plan Assessment/Plan (1) Sepsis: (2) Respiratory failure: (3) Acute kidney injury superimposed on chronic kidney disease: (4) Septic shock: PLAN: Plan 78-year-old female was admitted with shortness of breath with hypoxia from PCP office along with generalized weakness getting worse over the last few days to weeks. #Sepsis due to pneumonia, complicated with bacteremia due to strep pneumoniae. admitted with a complaint of shortness of breath and images showed right sided pneumonia. wbc was elevated at 38.1 and 40K She was tachycardic and tachypneic on admission and was also febrile. hydrated with IVF per sepsis protocol ID on board COVID is negative. Respiratory panel negative. Sputum cultures and blood cultures pending. Urine for strep pneumonia was positive. Urine culture shows GNR lactose group cio 11,000?25,000 colonies therefore not in pathology range. was started on IV ceftriaxone and azithromycin; changed to IV vancomycin and zosyn. Chest x-ray on admission showed findings suggestive of a complete collapse of the left lung and persistent infiltrate in the right lower lobe. CT chest showed a left hilar mass and left-sided mediastinal lymphadenopathy with narrowing of the left upper lobe bronchus causing collapse of the left upper lobe and lingula segment of the left lower lobe with mild loss versus consolidation in the posterior medial segment of the right lower lobe and shift of the heart and mediastinal structures towards the left of the midline 05/06: Leukocytosis 33.9 thousand. SOB/hypoxemia slightly better. Seen by narcotics agent recommended transfer to PCU. IV antibiotic narrowed down to ceftriaxone and Flagyl. Patient history of CAD #Acute hypoxic respiratory failure due to pneumonia and left hilar mass with collapse of the left upper lobe on BIPAP at 80% FiO2 titrate oxyten to maintain sats >90% breathing treatment with bronchodilators narcotics agent on board 2D echo showed EF of 65% and unable to assess diastolic function. CT chest as above #Left lung mass: As above. Management as per pulmonology #CEASAR on CKD IIIa Cr was 1.93 on admission. Creatinine is now down to 1.78. Her baseline is around 1.05. Been hydrated gently with IV fluids. Will trend creatinine. #A-fib with RVR. Patient went into A-fib with RVR this morning. She did receive some digoxin. She was started on amiodarone bolus and amiodarone drip. 2D echo as above. 05/06: Currently patient in sinus rhythm. Was bradycardia in the morning but heart rate currently 64/min. Amiodarone is discontinued. #Elevated troponins Thought to be due to sepsis and A-fib with RVR. Does not seem ACS/LA type I but from increased demand Initial troponin was 316 and trended down to 294. 2D echo as above. # History of C Diff currently not having diarrhea. She has had numerous episodes of C Diff. ID on board # Chronic thrombocytopenia She does have a history of thrombocytopenia from December 2023 with platelets being as low as 28. 05/06: Platelet count has been low since December 2023 but was also transiently low in November 2022. 52,000, 31,000. #Transaminitis: Total bilirubin was 2.5, and 1.6 1.8. Was likely due to sepsis and acute illness. Continue monitor #DVT prophylaxis; SCDs Charges/Coding Visit Charges Inpatient E&M: 83148 Subs Hosp L3
[2024-05-06] MEDS: metroNIDAZOLE 500 MG Tablet PO ×2 (14:48→21:25)
[2024-05-06] MEDS: [UNRECOGNIZED DRUG - OTHER] PO (14:49)
[2024-05-06 21:44] LABS: Bacteria 0 SEEN /hpf (None Seen); Color, Urine Yellow (Yellow); Glucose, Dipstick Normal (Normal); Ketone-Dipstick Negative (Negative); Leukocyte Esterase-Dipstick Negative /ul (Negative); Mucous, Urine 0 SEEN /hpf (<or=2+); Nitrite-Dipstick Negative (Negative); Occult Blood-Urine 25 /ul (Negative); Protein-Dipstick 30 mg/dl (Negative); Urine Bilirubin Dipstick Negative (Negative); Urine Clarity Clear (Clear); Urine Urobilinogen Normal (Normal)
[2024-05-06 21:54] LABS: Fine Granular Cast- Urine 0-5 SEEN /lpf (0-5); Red Blood Cells-Urine 0-5 SEEN /hpf (0-5); Squamous Epithelial Cells - UA 0-5 SEEN /hpf (5-10); Transitional Epithelial - Ur 0-5 SEEN /hpf (0-5); White Blood Cells 0-5 SEEN /hpf (0-5)
[2024-05-07] VITALS (10 sets, daily range): BP systolic 127–145; BP diastolic 66–85; PULSE 73–288; RESP 12–28; TEMP 36.3–36.5; O2SAT 93–99; BMI 33.9
[2024-05-07] MEDS: Ipratropium/Albuterol Sulfate 3 ML AMPUL.NEB INHALATION ×4 (04:05→19:58)
[2024-05-07] MEDS: metroNIDAZOLE 500 MG Tablet PO ×3 (05:43→21:24)
[2024-05-07 08:12] LABS: Pathologist Review Reviewed
--- NOTE | 2024-05-07 08:32 | PN.HOSP_ITS ---
Reason for Visit Reason for Visit: Diagnoses Sepsis, unspecified organism (05/04/24) Pneumonia, unspecified organism (05/04/24) Respiratory failure, unspecified, unspecified whether with hypoxia or hypercapnia (05/04/24) Acute kidney failure, unspecified (05/04/24) Chronic kidney disease, unspecified (05/04/24) Severe sepsis with septic shock (05/04/24) Objective Data Objective Data Vital Signs: Vital Signs Temp Pulse Resp BP Pulse Ox O2 Del Method O2 Flow Rate 97.6 F L 75 18 129/80 H 99 Bi-pap 7 05/07/24 08:00 05/07/24 08:00 05/07/24 08:00 05/07/24 08:00 05/07/24 08:00 05/07/24 08:00 05/06/24 21:37 FiO2 50 05/07/24 08:00 Oxygen Flow Rate (L/min) 7 Oxygen Delivery Method Bi-pap Weight: 203 lb 11.314 oz Body Mass Index (BMI) 33.9 Intake & Output: Intake and Output for Last 24 Hours 05/05/24 05/06/24 05/07/24 23:59 23:59 23:59 Intake Total 3193 / 3193 2996.54 / 2996.54 Output Total 600 / 600 600 / 600 Balance 2593 / 2593 2996.54 / 2696.54 -600 / -600 Lab / Micro Data 05/06/24 05:20 05/06/24 05:20 Labs: Laboratory Results - last 24 hr 05/06/24 05:20: Diff Path Review Reviewed 05/06/24 21:36: Urine Color Yellow, Urine Clarity Clear, Urine pH 6.0, Ur Specific [place] 1.010, Urine Protein 30 H, Urine Glucose (UA) Normal, Urine Ketones Negative, Urine Occult Blood 25 H, Urine Nitrite Negative, Urine Bilirubin Negative, Urine Urobilinogen Normal, Ur Leukocyte Esterase Negative, Urine RBC 0-5 SEEN, Urine WBC 0-5 SEEN, Ur Squamous Epith Cells 0-5 SEEN, Ur Transition Epith Cell 0-5 SEEN, Urine Bacteria 0 SEEN, Fine Granular Casts 0-5 SEEN, Urine Mucus 0 SEEN Micro: Microbiology 05/05/24 18:15 Urine, Catheterized Urine Culture - Preliminary Escherichia coli 05/04/24 11:15 Blood Culture (Wb) - Anticubital Left Bacteria Detection (PCR) - Final Streptococcus pneumo 05/04/24 11:15 Blood Culture (Wb) - Anticubital Left Blood Culture - Final Streptococcus pneumoniae 05/05/24 17:26 Mucosa - Nose Respiratory Panel (PCR) - Final 05/05/24 17:30 Nasal Secretion MRSA (PCR) - Final 05/05/24 18:15 Urine, Clean Catch Legionella Antigen - Final 05/05/24 18:15 Urine, Clean Catch Streptococcus pneumoniae Antigen (M - Final Streptococcus pneumonia Ag 05/04/24 11:45 Mucosa - Nose SARS-CoV-2, Influenza & RSV (PCR) - Final Physical Exam Narrative Seen and examined Patient is short of breath, looks better than yesterday. On oxygen high flow 6- 7 L/min. It seems patient does not have good memory for possible dementia. She writes all the questions in the diary but when asked details about the question she cannot remember like chronology, severity and details of the events Physical exam General: Alert, Oriented x3, Cooperative HEENT: Atraumatic, PERRLA, EOMI, Normocephalic Oral: No Gingival or Mucosal Lesions/ Ulcerations Neck: Supple, No JVD, Negative Carotid Bruits Chest wall/Lungs: Air entry diminished in bilateral lungs. Bilateral coarse crepitations. Cardiovascular: Sinus rhythm, Normal S1, Normal S2, No M/G/R Abdomen: Bowel Sounds Present, Soft, Non Tender, Non-Distended : No dysuria. No renal angle tenderness. No suprapubic tenderness. Extremities: Minimal to mild edema, Capillary Refill Less than 3 Seconds Skin: No rashes, No breakdown Musculoskeletal: No Tenderness to Palpation of Joints or Extremities Neurological: Cranial nerves II-XII grossly intact, DTR 2+/4. No acute focal neurological deficit. Psych/Mental Status: Flat affect. Assessment & Plan Assessment/Plan (1) Sepsis: (2) Respiratory failure: (3) Acute kidney injury superimposed on chronic kidney disease: (4) Septic shock: PLAN: Plan 78-year-old female was admitted with shortness of breath with hypoxia from PCP office along with generalized weakness getting worse over the last few days to weeks. #Sepsis due to pneumonia, complicated with bacteremia due to strep pneumoniae. * admitted with a complaint of shortness of breath and images showed right sided pneumonia. * wbc was elevated at 38.1 and 40K * She was tachycardic and tachypneic on admission and was also febrile. * hydrated with IVF per sepsis protocol * ID on board * COVID is negative. Respiratory panel negative. Sputum cultures and blood cultures pending. * Urine for strep pneumonia was positive. Urine culture shows GNR lactose compliance assistant 11,000?25,000 colonies therefore not in pathology range. * was started on IV ceftriaxone and azithromycin; changed to IV vancomycin and zosyn. * Chest x-ray on admission showed findings suggestive of a complete collapse of the left lung and persistent infiltrate in the right lower lobe. * CT chest showed a left hilar mass and left-sided mediastinal lymphadenopathy with narrowing of the left upper lobe bronchus causing collapse of the left upper lobe and lingula segment of the left lower lobe with mild loss versus consolidation in the posterior medial segment of the right lower lobe and shift of the heart and mediastinal structures towards the left of the midline 05/06: Leukocytosis 33.9 thousand. SOB/hypoxemia slightly better. Seen by certified medication technician recommended transfer to PCU. IV antibiotic narrowed down to ceftriaxone and Flagyl. Patient history of CAD #Acute hypoxic respiratory failure due to pneumonia and left hilar mass with collapse of the left upper lobe * on BIPAP at 80% FiO2 * titrate oxyten to maintain sats >90% * breathing treatment with bronchodilators * certified medication technician on board * 2D echo showed EF of 65% and unable to assess diastolic function. * CT chest as above #Left lung mass: As above. Management as per pulmonology #CEASAR on CKD IIIa * Cr was 1.93 on admission. Creatinine is now down to 1.78. Her baseline is around 1.05. * Been hydrated gently with IV fluids. Will trend creatinine. #A-fib with RVR. * Patient went into A-fib with RVR this morning. * She did receive some digoxin. * She was started on amiodarone bolus and amiodarone drip. * 2D echo as above. 05/06: Currently patient in sinus rhythm. Was bradycardia in the morning but heart rate currently 64/min. Amiodarone is discontinued. #Elevated troponins * Thought to be due to sepsis and A-fib with RVR. Does not seem ACS/OR type I but from increased demand * Initial troponin was 316 and trended down to 294. 2D echo as above. # History of C Diff * currently not having diarrhea. * She has had numerous episodes of C Diff. * ID on board 05/07 she stated that she was started on C. difficile medication in March 2024 for 3 months but review of her medical record shows she was on vancomycin in November and January 2023 # Chronic thrombocytopenia She does have a history of thrombocytopenia from December 2023 with platelets being as low as 28. 05/06: Platelet count has been low since December 2023 but was also transiently low in November 2022. 52,000, 31,000. #Transaminitis: Total bilirubin was 2.5, and 1.6 1.8. Was likely due to sepsis and acute illness. Continue monitor #DVT prophylaxis; SCDs Charges/Coding Visit Charges Inpatient E&M: 44279 Subs Hosp L2
[2024-05-07] MEDS: [UNRECOGNIZED DRUG - OTHER] PO (10:22)
[2024-05-07] MEDS: guaiFENesin 1,200 MG Tablet 1200 MG PO ×2 (10:22→21:24)
[2024-05-07] MEDS: Ceftriaxone 2 GM in 0.9% Normal Saline (50mL MB+) 50 ML IV (11:39)
--- NOTE | 2024-05-07 11:56 | PN.CC_ITS ---
Assessment & Plan Assessment/Plan (1) Sepsis: (2) Acute kidney injury superimposed on chronic kidney disease: (3) Respiratory failure: PLAN: Plan RECOMMENDATIONS: 1. Continue antimicrobials per ID recommendations. 2. Wean supplemental oxygen to maintain saturations at or above 90%. 3. Continue scheduled bronchodilators. 4. Encourage incentive spirometer use and mobilize patient as tolerated. 5. Recommend follow-up CT chest 6 to 8 weeks after discharge for further characterization of left hilar mass. IMPRESSIONS: 1. Acute hypoxemic respiratory failure Most likely related to underlying pneumococcal pneumonia, given the patient's presenting blood culture results. She does have significant lobar collapse on the left side, with possible left hilar mass and adenopathy noted on CT imaging. Overall, the patient's oxygen status has improved significantly with antimicrobial therapy. She will be continued on antibiotics per ID recommendations. Supplemental oxygen will be weaned to maintain saturations at or above 90%. I would recommend that the patient have a repeat CT chest completed 6 to 8 weeks after discharge. 2. Sepsis The patient presented with sepsis due to pneumococcal pneumonia with secondary bacteremia, with acute sepsis related organ dysfunction as evidenced by lactic acidemia, hyperbilirubinemia and acute respiratory failure requiring noninvasive positive pressure ventilatory support. The patient remains hemodynamically stable. Continue antimicrobials per ID recommendations. 3. Atrial fibrillation with RVR/troponin elevation Resolved. The patient experienced transient atrial fibrillation with RVR, which responded to medical therapy with amiodarone. She is currently in normal sinus rhythm. Echocardiogram was unremarkable. I suspect that her elevated troponin is likely secondary to demand ischemia in the setting of #1 and 2. 4. Acute on chronic kidney disease Most likely prerenal in etiology in the setting of #1 and 2. Creatinine has improved somewhat following fluid resuscitation. Continue to monitor urine output for now. No current indication for renal replacement therapy. 5. History of thrombocytopenia/history of C. difficile colitis/troponin elevation Complicates care, management, recovery and prognosis. Continue home medications as indicated. This note was generated with [employer] dictation software. It may contain incorrect words, spelling, and punctuation that were not noted in checking the note before signing. Subjective Subjective The patient was seen and examined at the bedside this morning. Events from the last 24 hours have been reviewed. The patient is currently afebrile, hemodynamically stable and maintaining appropriate oxygen saturations on 6 L/min via nasal cannula. The patient remains on antimicrobials under the discretion of infectious diseases. Objective Data Objective Data The patient's most recent lab work, culture data and imaging studies have all been personally reviewed. Surface echocardiogram demonstrated normal LV size and function with an ejection fraction of 65%. Strep pneumo urinary antigen was positive. Blood cultures dated May 04 were positive for Streptococcus pneumonia. Vital Signs: Vital Signs Temp Pulse Resp BP Pulse Ox O2 Del Method O2 Flow Rate 97.6 F L 75 18 129/80 H 99 High Flow 6 05/07/24 08:00 05/07/24 08:00 05/07/24 08:00 05/07/24 08:00 05/07/24 08:00 05/07/24 08:33 05/07/24 08:00 FiO2 50 05/07/24 04:05 Oxygen Flow Rate (L/min) 6 Oxygen Delivery Method High Flow Weight: 203 lb 11.314 oz Body Mass Index (BMI) 33.9 Intake & Output: Intake and Output for Last 24 Hours 05/05/24 05/06/24 05/07/24 23:59 23:59 23:59 Intake Total 3193 / 3193 2996.54 / 2996.54 400 / 400 Output Total 600 / 600 600 / 600 Balance 2593 / 2593 2996.54 / 2696.54 -200 / -200 Lab / Micro Data Attestation: I reviewed the patient's lab results. 05/06/24 05:20 05/06/24 05:20 Labs: Laboratory Results - last 24 hr 05/06/24 05:20: Diff Path Review Reviewed 05/06/24 21:36: Urine Color Yellow, Urine Clarity Clear, Urine pH 6.0, Ur Specific [place] 1.010, Urine Protein 30 H, Urine Glucose (UA) Normal, Urine Ketones Negative, Urine Occult Blood 25 H, Urine Nitrite Negative, Urine Bilirubin Negative, Urine Urobilinogen Normal, Ur Leukocyte Esterase Negative, Urine RBC 0-5 SEEN, Urine WBC 0-5 SEEN, Ur Squamous Epith Cells 0-5 SEEN, Ur Transition Epith Cell 0-5 SEEN, Urine Bacteria 0 SEEN, Fine Granular Casts 0-5 SEEN, Urine Mucus 0 SEEN Micro: Microbiology 05/05/24 18:15 Urine, Catheterized Urine Culture - Preliminary Escherichia coli 05/04/24 11:15 Blood Culture (Wb) - Anticubital Left Bacteria Detection (PCR) - Final Streptococcus pneumo 05/04/24 11:15 Blood Culture (Wb) - Anticubital Left Blood Culture - Final Streptococcus pneumoniae 05/05/24 17:26 Mucosa - Nose Respiratory Panel (PCR) - Final 05/05/24 17:30 Nasal Secretion MRSA (PCR) - Final 05/05/24 18:15 Urine, Clean Catch Legionella Antigen - Final 05/05/24 18:15 Urine, Clean Catch Streptococcus pneumoniae Antigen (M - Final Streptococcus pneumonia Ag 05/04/24 11:45 Mucosa - Nose SARS-CoV-2, Influenza & RSV (PCR) - Final Radiography Diagnostic Testing: Radiology Impression Chest CT 05/05/24 09:10 IMPRESSION: Left hilar mass and left sided mediastinal adenopathy with narrowing of the left upper lobe bronchus causing collapse of the left upper lobe and lingular segment of the left upper lobe. Mild loss/consolidation in the posterior medial segment of the right lower lobe. Shift of the heart and mediastinal structures towards the left side of the midline. Electronically Signed: Pedro Mazariegos MD at 9:54 EST , Echocardiogram 05/05/24 09:17 Interpretation Summary Mild concentric left ventricular hypertrophy. The left ventricular ejection fraction is 65 %. The left atrium is mildly enlarged. Ordering Physician: Sukhwinder Wright Performed By: Dayne Grimm and Student Physical Exam Const alert, oriented x3 and no apparent distress General Appearance: cooperative HEENT normocephalic and head/scalp atraumatic Eyes PERRL, EOMs intact bilaterally and conjunctivae normal Neck supple General: trachea midline Chest inspection of chest normal Resp normal respiratory effort Auscultation: diminished lung sounds; Negative for rales, rhonchi or wheezes Cardio regular rate, regular rhythm, S1 normal heart sound and S2 normal heart sound GI normal to inspection, nondistended, normoactive bowel sounds Extremity no clubbing, cyanosis or edema Skin no rashes or lesions noted Neuro CN's II-XII intact bilaterally, moves all extremities and no focal motor deficits Psych cooperative and affect normal Charges/Coding Visit Charges Inpatient E&M: 17622 Subs Hosp L2
--- NOTE | 2024-05-07 14:01 | PCM.PN.ID ---
Physical Exam Narrative Feeling ok, breathing a little better, still cough with sputum, no fever Const alert and no apparent distress General Appearance: cooperative Resp Auscultation: rhonchi Cardio regular rate and regular rhythm GI soft to palpation, non-tender and non-distended Skin no rashes or lesions noted ID ID: Route of nutrition/ use of supplements: [] Nutritional Intake: [] IV Site: [] Ordonez Catheter: [] Assessment & Plan Assessment/Plan (1) Sepsis: PLAN: Bacteremia with strep pneumo. S pneumo UAg (+). L hilar mass and adenopathy seen on CT. Question if this is post-obstructive pneumonia. Cont ceftriaxone/flagyl. Has h/o cdiff. Plan on 10 days total of abx. Can change to po augmentin 875mg bid at discharge to finish course. Wbc improving. Will follow (2) Acute kidney injury superimposed on chronic kidney disease: (3) Pneumonia:
[2024-05-07] MEDS: Lactobacillis Acidophilus 1 CAP PO (21:24)
[2024-05-08] VITALS (15 sets, daily range): BP systolic 115–139; BP diastolic 75–92; PULSE 72–84; RESP 12–24; TEMP 35.7–36.7; O2SAT 87–96; BMI 35.9
[2024-05-08] MEDS: Ipratropium/Albuterol Sulfate 3 ML AMPUL.NEB INHALATION ×6 (00:10→20:27)
[2024-05-08] MEDS: metroNIDAZOLE 500 MG Tablet PO (06:00)
[2024-05-08] MEDS: Sodium Chloride 0.65% 1 SPRAY SPRAY.BTL 2 SPRAY NASAL (06:01)
[2024-05-08 07:04] LABS: Hematocrit 42.3 % (37-47); Hemoglobin 13.6 g/dL (12.0-15.0); Mean Corp Hgb Conc 32.2 g/dL (32-36); Mean Corpuscular Hgb 24.9 pg (27.0-32.0); Mean Corpuscular Volume 77.3 fL (81-99); POSITIVE COUNT YES; POSITIVE DIFFERENTIAL YES; POSITIVE MORPHOLOGY YES; RBC Distribution Width CV 23.1 % (11.6-14.6); RBC Distribution Width SD 61.1 fl (35.1-43.9); Red Blood Count 5.47 M/mm3 (4.2-5.4); White Blood Count 28.7 K/mm3 (4.4-11.0)
[2024-05-08 07:13] LABS: Differential Indicated MANUAL DIFF; Platelet Count 16 K/mm3 (150-450)
[2024-05-08 07:23] LABS: AST(SGOT) 29 U/L (15-37); Alanine Aminotransfer ALT/SGPT < 6 U/L (13-56); Albumin, Serum 1.6 g/dL (3.2-5.0); Alkaline Phosphatase 165 U/L (45-117); Anion Gap 9 (5-15); BUN 55 mg/dL (7-18); BUN/Creat Ratio 35.7 RATIO (10-20); Bilirubin, Direct 0.98 mg/dL (0.00-0.30); Calcium,Total 8.4 mg/dL (8.5-10.1); Chloride 108 mmol/L (98-107); Creatinine, Serum 1.54 mg/dL (0.55-1.02); EST Glomerular Filtration Rate 35 mL/min (>60); Est Glom Filt Rate - Afr Amer 42 mL/min (>60); Estimated Creatinine Clearance 35.28 ml/min; Globulin 4.1 g/dL (2.2-4.2); Glucose 102 mg/dL (74-106); Potassium 3.7 mmol/L (3.5-5.1); Protein, Total 5.7 g/dL (6.4-8.2); Sodium Level 135 mmol/L (136-145)
[2024-05-08 08:53] LABS: Eosinophil 1 % (0-5); Lymphocyte 6 % (19-41); Metamyelocyte 5 % (0-1); Monocyte 2 % (0-10); Myelocyte 5 % (0-0); Neutrophil-Band 1 % (0-5); Neutrophil-Segmented 80 % (47-70); Nucleated Red Bld Cells,Manual 4 % (0-5); Total Cells Counted 100 (MANUAL DIFF)
[2024-05-08 08:54] LABS: Absolute Lymphocyte Count 1.72 X10^3/uL (0.83-4.51); Lymphocyte # 1.72 X10^3/ul (0.83-4.51); Neutrophil # 22.98 X10^3/uL (2.7-7.7)
[2024-05-08 08:55] LABS: Platelet Estimate MKD DEC (ADEQ)
[2024-05-08 08:56] LABS: Anisocytosis 2+; Microcytosis 1+; Polychromasia RARE
--- NOTE | 2024-05-08 09:38 | PN.HOSP_ITS ---
Reason for Visit Reason for Visit: Diagnoses Sepsis, unspecified organism (05/04/24) Pneumonia, unspecified organism (05/04/24) Respiratory failure, unspecified, unspecified whether with hypoxia or hypercapnia (05/04/24) Acute kidney failure, unspecified (05/04/24) Chronic kidney disease, unspecified (05/04/24) Severe sepsis with septic shock (05/04/24) Objective Data Objective Data Vital Signs: Vital Signs Temp Pulse Resp BP Pulse Ox O2 Del Method O2 Flow Rate 96.3 F L 84 18 139/80 H 96 Nasal Cannula 6 05/08/24 03:15 05/08/24 07:25 05/08/24 07:25 05/08/24 03:15 05/08/24 07:25 05/08/24 07:25 05/08/24 07:25 FiO2 45 05/08/24 03:31 Oxygen Flow Rate (L/min) 6 Oxygen Delivery Method Nasal Cannula Weight: 215 lb 6.266 oz Body Mass Index (BMI) 35.9 Intake & Output: Intake and Output for Last 24 Hours 05/06/24 05/07/24 05/08/24 23:59 23:59 23:59 Intake Total 2996.54 / 2996.54 450 / 450 Output Total 600 / 600 Balance 2996.54 / 2696.54 -150 / -150 Lab / Micro Data 05/08/24 06:16 05/08/24 06:16 Labs: Laboratory Results - last 24 hr 05/08/24 06:16: WBC 28.7 H, RBC 5.47 H, Hgb 13.6, Hct 42.3, MCV 77.3 L, MCH 24.9 L, MCHC 32.2, RDW Std Deviation 61.1 H, RDW Coeff of Joya 23.1 H, Plt Count 16 L* , MPV TNP, Neut % (Auto) Not Reportable, Absolute Neuts (auto) 23.0 H, Absolute Lymphs (auto) 1.72, Total Counted 100, Neutrophils % (Manual) 80 H, Band Neutrophils % 1, Lymphocytes % (Manual) 6 L, Monocytes % (Manual) 2, Eosinophils % (Manual) 1, Metamyelocytes % 5 H, Myelocytes % 5 H, Nucleated RBCs/100 WBC 4, Diff Path Review October, Platelet Estimate MKD DEC, Polychromasia RARE, Anisocytosis 2+, Microcytosis 1+, Sodium 135 L, Potassium 3.7, Chloride 108 H, C arbon Dioxide 19.0 L, Anion Gap 9, BUN 55 H, Creatinine 1.54 H, Estim Creat Clear Calc 35.28, Est GFR (MDRD) Af Amer 42 L, Est GFR (MDRD) Non-Af 35 L, B UN/Creatinine Ratio 35.7 H, Glucose 102, Calcium 8.4 L, Total Bilirubin 1.40 H, Direct Bilirubin 0.98 H, AST 29, ALT < 6 L, Alkaline Phosphatase 165 H, Total Protein 5.7 L, Albumin 1.6 L, Globulin 4.1 Micro: Microbiology 05/05/24 18:15 Urine, Catheterized Urine Culture - Final ESBL Escherichia coli 05/07/24 01:05 Sputum, Expectorated/Coughed Gram Stain - Final 05/07/24 07:27 Stool Enteric Bacteriology - Final 05/04/24 11:15 Blood Culture (Wb) - Anticubital Left Bacteria Detection (PCR) - Final Streptococcus pneumo 05/04/24 11:15 Blood Culture (Wb) - Anticubital Left Blood Culture - Final Streptococcus pneumoniae 05/05/24 17:26 Mucosa - Nose Respiratory Panel (PCR) - Final 05/05/24 17:30 Nasal Secretion MRSA (PCR) - Final 05/05/24 18:15 Urine, Clean Catch Legionella Antigen - Final 05/05/24 18:15 Urine, Clean Catch Streptococcus pneumoniae Antigen (M - Final Streptococcus pneumonia Ag 05/04/24 11:45 Mucosa - Nose SARS-CoV-2, Influenza & RSV (PCR) - Final Physical Exam Narrative Seen and examined Overall patient states that shortness of breath is better. On 5 L of oxygen. Platelet count 16,000. Physical exam General: Alert, Oriented x3, Cooperative HEENT: Atraumatic, PERRLA, EOMI, Normocephalic Oral: No oral rash or epistaxis or bleeding. No Gingival or Mucosal Lesions/ Ulcerations Neck: Supple, No JVD, Negative Carotid Bruits Chest wall/Lungs: Air entry diminished in bilateral lungs. Bilateral coarse crepitations improving. Cardiovascular: Sinus rhythm, Normal S1, Normal S2, No M/G/R Abdomen: Bowel Sounds Present, Soft, Non Tender, Non-Distended : No dysuria. No renal angle tenderness. No suprapubic tenderness. Extremities: Minimal to mild edema, Capillary Refill Less than 3 Seconds Skin: No rashes, No breakdown. No petechial rash or bruise or ecchymosis Musculoskeletal: No Tenderness to Palpation of Joints or Extremities Neurological: Cranial nerves II-XII grossly intact, DTR 2+/4. No acute focal neurological deficit. Psych/Mental Status: Flat affect. Assessment & Plan Assessment/Plan (1) Sepsis: (2) Respiratory failure: (3) Acute kidney injury superimposed on chronic kidney disease: (4) Septic shock: PLAN: Plan 78-year-old female was admitted with shortness of breath with hypoxia from PCP office along with generalized weakness getting worse over the last few days to weeks. #Sepsis due to pneumonia, complicated with bacteremia due to strep pneumoniae. * admitted with a complaint of shortness of breath and images showed right sided pneumonia. * wbc was elevated at 38.1 and 40K * She was tachycardic and tachypneic on admission and was also febrile. * hydrated with IVF per sepsis protocol * ID on board * COVID is negative. Respiratory panel negative. Sputum cultures and blood cultures pending. * Urine for strep pneumonia was positive. Urine culture shows GNR lactose php consultant 11,000?25,000 colonies therefore not in pathology range. * was started on IV ceftriaxone and azithromycin; changed to IV vancomycin and zosyn. * Chest x-ray on admission showed findings suggestive of a complete collapse of the left lung and persistent infiltrate in the right lower lobe. * CT chest showed a left hilar mass and left-sided mediastinal lymphadenopathy with narrowing of the left upper lobe bronchus causing collapse of the left upper lobe and lingula segment of the left lower lobe with mild loss versus consolidation in the posterior medial segment of the right lower lobe and shift of the heart and mediastinal structures towards the left of the midline 05/06: Leukocytosis 33.9 thousand. SOB/hypoxemia slightly better. Seen by access analyst recommended transfer to PCU. IV antibiotic narrowed down to ceftriaxone and Flagyl. Patient history of CAD 05/08: WBC count is improving. #Acute hypoxic respiratory failure due to pneumonia and left hilar mass with collapse of the left upper lobe * on BIPAP at 80% FiO2 * titrate oxyten to maintain sats >90% * breathing treatment with bronchodilators * access analyst on board * 2D echo showed EF of 65% and unable to assess diastolic function. * CT chest as above #Left lung mass: As above. Management as per pulmonology #CEASAR on CKD IIIa * Cr was 1.93 on admission. Creatinine is now down to 1.78. Her baseline is around 1.05. * Been hydrated gently with IV fluids. Will trend creatinine. #A-fib with RVR. * Patient went into A-fib with RVR this morning. * She did receive some digoxin. * She was started on amiodarone bolus and amiodarone drip. * 2D echo as above. 05/06: Currently patient in sinus rhythm. Was bradycardia in the morning but heart rate currently 64/min. Amiodarone is discontinued. #Elevated troponins * Thought to be due to sepsis and A-fib with RVR. Does not seem ACS/NE type I but from increased demand * Initial troponin was 316 and trended down to 294. 2D echo as above. # History of C Diff * currently not having diarrhea. * She has had numerous episodes of C Diff. * ID on board 05/07 she stated that she was started on C. difficile medication in March 2024 for 3 months but review of her medical record shows she was on vancomycin in November and January 2023 # Chronic thrombocytopenia She does have a history of thrombocytopenia from December 2023 with platelets being as low as 28. 05/06: Platelet count has been low since December 2023 but was also transiently low in November 2022. 52,000, 31,000. 05/08: With severe thrombocytopenia initially I called Dr. Babatunde Kim but he did not call back. Then I called Dr. Babatunde Arias and he called back and we discussed. Patient already on third dose of Avatrombopag 20 mg daily. It is expected that his platelet count might go up. On discussion, no need for platelet transfusion. Monitor platelet count daily. His platelet count might be low due to sepsis but since he is recovering expected to improve. . #Transaminitis: Total bilirubin was 2.5, and 1.6 1.8. Was likely due to sepsis and acute illness. Continue monitor #DVT prophylaxis; SCDs Charges/Coding Visit Charges Inpatient E&M: 85896 Subs Hosp L2
[2024-05-08] MEDS: [UNRECOGNIZED DRUG - OTHER] PO (09:44)
[2024-05-08] MEDS: Lactobacillis Acidophilus 1 CAP PO ×2 (09:44→21:32)
[2024-05-08] MEDS: guaiFENesin 1,200 MG Tablet 1200 MG PO ×2 (09:45→21:32)
[2024-05-08 10:51] LABS: LDH 390 U/L (84-246)
--- NOTE | 2024-05-08 13:59 | PN.CC_ITS ---
Objective Data Objective Data Vital Signs: Vital Signs Last response 3 Temperature 36.4 C L 05/08/24 09:40 Temperature Source Oral 05/08/24 09:40 Pulse Rate 84 05/08/24 10:53 Respiratory Rate 20 H 05/08/24 10:53 Respiratory Effort Short of Breath, Labored 05/08/24 03:31 Respiratory Depth Normal 05/08/24 03:31 Respiratory Pattern Normal 05/08/24 07:25 Blood Pressure 115/92 H 05/08/24 09:40 Blood Pressure Mean 99 05/08/24 09:40 Blood Pressure Source Monitor 05/08/24 09:40 Blood Pressure Position Sitting 05/08/24 09:40 Blood Pressure Location Left Arm 05/08/24 09:40 Pulse Ox 95 05/08/24 11:51 Oxygen Delivery Method High Flow 05/08/24 09:40 Oxygen Flow Rate (L/min) 5 05/08/24 11:51 Fraction of Inspired Oxygen (FIO2) 45 05/08/24 03:31 I&O: I&O Last 24 Hours 3 05/07/24 05/08/24 05/08/24 23:59 11:59 23:59 Intake Total 50 / 450 Balance 50 / -150 I&O: Total Stay 3 05/04/24 11:11 thru 05/08/24 05:51 Intake Total 69236.54 Output Total 1200 Balance 9794.54 Current Meds Ordered / Administered: Current meds ordered / Administered 3 Generic Name Dose Route Start Last Admin Trade Name Freq PRN Reason Stop Dose Admin Acetaminophen 650 mg 05/04/24 15:19 Acetaminophen 325 Mg Tablet PO Q6H PRN PRN Pain 1-10 Or Fever >100.7 Albuterol Sulfate 2.5 mg 05/04/24 15:19 Albuterol 2.5 Mg/3 Ml Vial.Neb. INHALATION Q2H PRN PRN SOB &/OR WHEEZING Albuterol/Ipratropium 3 ml 05/08/24 10:45 05/08/24 10:53 Ipratropium/Albuterol Sulfate 3 Ml Ampul.Neb INHALATION 3 ml Q4HWA.RT DWIGHT Administration Guaifenesin 1,200 mg 05/04/24 22:00 05/08/24 09:45 Guaifenesin 1,200 Mg Tablet PO 1,200 mg BID DWIGHT Administration Ampicillin Sodium/Sulbactam 112 mls @ 150 mls/hr 05/08/24 14:00 Sodium 3 gm/ Sodium Chloride IV Q8 DWIGHT Lidocaine/Diphenhydr/Alum/Mg/Simeth 15 ml 05/07/24 09:31 Bmx Liquid 180 Ml PO Q3H PRN PRN sore mouth Melatonin 3 mg 05/04/24 15:19 Melatonin 3 Mg Tablet PO QHS PRN PRN INSOMNIA Senna/Docusate Sodium 2 tablet 05/04/24 15:19 Senna/Docusate Sodium 1 Tablet PO BID PRN PRN Constipation Sodium Chloride 10 - 40 ml 05/04/24 15:33 05/06/24 05:16 0.9% Saline Lock 10 Ml Syringe IV 20 ml UD PRN Administration SALINE FLUSH Sodium Chloride 2 spray 05/07/24 09:31 05/08/24 06:01 Sodium Chloride 0.65% 1 [place].B[place] NASAL 2 spray TID PRN PRN Administration NASAL DRYNESS Lab / Micro Data 05/08/24 06:16 05/08/24 06:16 Labs: Laboratory Results - last 24 hr 05/08/24 06:16: WBC 28.7 H, RBC 5.47 H, Hgb 13.6, Hct 42.3, MCV 77.3 L, MCH 24.9 L, MCHC 32.2, RDW Std Deviation 61.1 H, RDW Coeff of Joya 23.1 H, Plt Count 16 L* , MPV TNP, Neut % (Auto) Not Reportable, Absolute Neuts (auto) 23.0 H, Absolute Lymphs (auto) 1.72, Total Counted 100, Neutrophils % (Manual) 80 H, Band Neutrophils % 1, Lymphocytes % (Manual) 6 L, Monocytes % (Manual) 2, Eosinophils % (Manual) 1, Metamyelocytes % 5 H, Myelocytes % 5 H, Nucleated RBCs/100 WBC 4, Diff Path Review October, Platelet Estimate MKD DEC, Polychromasia RARE, Anisocytosis 2+, Microcytosis 1+, Sodium 135 L, Potassium 3.7, Chloride 108 H, C arbon Dioxide 19.0 L, Anion Gap 9, BUN 55 H, Creatinine 1.54 H, Estim Creat Clear Calc 35.28, Est GFR (MDRD) Af Amer 42 L, Est GFR (MDRD) Non-Af 35 L, B UN/Creatinine Ratio 35.7 H, Glucose 102, Calcium 8.4 L, Total Bilirubin 1.40 H, Direct Bilirubin 0.98 H, AST 29, ALT < 6 L, Alkaline Phosphatase 165 H, Total Protein 5.7 L, Albumin 1.6 L, Globulin 4.1 05/08/24 10:13: Lactate Dehydrogenase 390 H, Direct Antiglob Test NEG w/POLYSPECIFIC Micro: Microbiology 05/07/24 01:05 Sputum, Expectorated/Coughed Gram Stain - Final 05/07/24 01:05 Sputum, Expectorated/Coughed Respiratory Culture - Preliminary Ericka albicans 05/05/24 18:15 Urine, Catheterized Urine Culture - Final ESBL Escherichia coli 05/07/24 07:27 Stool Enteric Bacteriology - Final Assessment and Plan . Assessment and plan: 1. Acute hypoxemic respiratory failure - bacteremic pneumococcal pneumonia, - hilar [place]-repeat CT chest completed 6 to 8 weeks after discharge. 2. Sepsis The patient presented with sepsis due to pneumococcal pneumonia with secondary bacteremia, with acute sepsis related organ dysfunction as evidenced by lactic acidemia, hyperbilirubinemia and acute respiratory failure requiring noninvasive positive pressure ventilatory support. The patient remains hemodynamically stable. Continue antimicrobials per ID recommendations. 3. Atrial fibrillation with RVR/troponin elevation Resolved. The patient experienced transient atrial fibrillation with RVR, which responded to medical therapy with amiodarone. She is currently in normal sinus rhythm. Echocardiogram was unremarkable. I suspect that her elevated troponin is likely secondary to demand ischemia in the setting of #1 and 2. 4. Acute on chronic kidney disease Most likely prerenal in etiology in the setting of #1 and 2. Creatinine has improved somewhat following fluid resuscitation. Continue to monitor urine output for now. No current indication for renal replacement therapy. 5. History of thrombocytopenia/history of C. difficile colitis/troponin elevation Complicates care, management, recovery and prognosis. Continue home medications as indicated. Critical Care Time: 50 minutes The entirety of this encounter was done via Telemedicine Physical Exam Const alert and oriented x3 General Appearance: cooperative HEENT normocephalic Eyes PERRL Neck full ROM Resp Effort and Inspection: tachypneic, respiratory distress and uses accessory muscles Subjective Subjective Alert, seems to be more compromised with her breathing than she endorses. Taking noted during the interview.
[2024-05-08] MEDS: 0.9% Saline Lock 10 ML Syringe IV ×2 (14:25→21:32)
[2024-05-08] MEDS: Ampicillin/Sulbactam 3 GM in 0.9% Normal Saline (100mL MB+) 100 ML IV ×2 (14:25→21:32)
[2024-05-09] VITALS (14 sets, daily range): BP systolic 125–145; BP diastolic 65–79; PULSE 68–80; RESP 12–20; TEMP 36.3–36.6; O2SAT 93–97; BMI 35.9
[2024-05-09] MEDS: 0.9% Saline Lock 10 ML Syringe IV ×3 (05:23→17:05)
[2024-05-09] MEDS: Ampicillin/Sulbactam 3 GM in 0.9% Normal Saline (100mL MB+) 100 ML IV ×3 (05:23→20:51)
[2024-05-09 06:24] LABS: Hematocrit 42.6 % (37-47); Hemoglobin 13.6 g/dL (12.0-15.0); Mean Corp Hgb Conc 31.9 g/dL (32-36); Mean Corpuscular Hgb 24.9 pg (27.0-32.0); Mean Corpuscular Volume 77.9 fL (81-99); POSITIVE COUNT YES; POSITIVE DIFFERENTIAL YES; POSITIVE MORPHOLOGY YES; RBC Distribution Width CV 23.2 % (11.6-14.6); RBC Distribution Width SD 62.6 fl (35.1-43.9); Red Blood Count 5.47 M/mm3 (4.2-5.4)
[2024-05-09 06:44] LABS: Differential Indicated MANUAL DIFF; Platelet Count 13 K/mm3 (150-450)
[2024-05-09 06:56] LABS: Anion Gap 8 (5-15); BUN 49 mg/dL (7-18); BUN/Creat Ratio 35.3 RATIO (10-20); Calcium,Total 8.5 mg/dL (8.5-10.1); Chloride 108 mmol/L (98-107); Creatinine, Serum 1.39 mg/dL (0.55-1.02); EST Glomerular Filtration Rate 39 mL/min (>60); Est Glom Filt Rate - Afr Amer 47 mL/min (>60); Glucose 108 mg/dL (74-106); Potassium 3.8 mmol/L (3.5-5.1); Sodium Level 135 mmol/L (136-145)
[2024-05-09] MEDS: Ipratropium/Albuterol Sulfate 3 ML AMPUL.NEB INHALATION ×3 (07:23→19:30)
[2024-05-09 07:57] LABS: Lymphocyte 3 % (19-41); Metamyelocyte 7 % (0-1); Monocyte 6 % (0-10); Myelocyte 1 % (0-0); Neutrophil-Band 5 % (0-5); Neutrophil-Segmented 78 % (47-70); Nucleated Red Bld Cells,Manual 5 % (0-5); Total Cells Counted 100 (MANUAL DIFF)
[2024-05-09 07:59] LABS: Corrected WBC 31.8 K/mm3 (4.4-11.0)
[2024-05-09 08:01] LABS: Absolute Lymphocyte Count 0.95 X10^3/uL (0.83-4.51); Absolute Neutrophil Count 26.4 X10^3/uL (2.0-7.7); Lymphocyte # 0.95 X10^3/ul (0.83-4.51); Neutrophil # 26.39 X10^3/uL (2.7-7.7)
[2024-05-09 08:02] LABS: Differential Comment MANUAL; Platelet Estimate MKD DEC (ADEQ)
[2024-05-09 08:03] LABS: Anisocytosis 2+; Macrocytosis 1+; Microcytosis 1+; Polychromasia 1+
[2024-05-09 08:09] LABS: Haptoglobin 133 mg/dL (42-346)
[2024-05-09] MEDS: [UNRECOGNIZED DRUG - OTHER] PO (09:29)
[2024-05-09] MEDS: guaiFENesin 1,200 MG Tablet 1200 MG PO ×2 (09:31→20:51)
[2024-05-09] MEDS: Lactobacillis Acidophilus 1 CAP PO ×2 (09:32→20:51)
--- NOTE | 2024-05-09 10:16 | PN.HOSP_ITS ---
Reason for Visit Reason for Visit: Diagnoses Sepsis, unspecified organism (05/04/24) Pneumonia, unspecified organism (05/04/24) Respiratory failure, unspecified, unspecified whether with hypoxia or hypercapnia (05/04/24) Acute kidney failure, unspecified (05/04/24) Chronic kidney disease, unspecified (05/04/24) Severe sepsis with septic shock (05/04/24) Objective Data Objective Data Vital Signs: Vital Signs Temp Pulse Resp BP Pulse Ox O2 Del Method O2 Flow Rate 97.7 F L 72 18 130/74 H 95 Nasal Cannula 5 05/09/24 09:35 05/09/24 09:35 05/09/24 09:35 05/09/24 09:35 05/09/24 09:35 05/09/24 09:35 05/09/24 09:35 FiO2 45 05/09/24 02:11 Oxygen Flow Rate (L/min) 5 Oxygen Delivery Method Nasal Cannula Weight: 215 lb 9.793 oz Body Mass Index (BMI) 35.9 Intake & Output: Intake and Output for Last 24 Hours 05/07/24 05/08/24 05/09/24 23:59 23:59 23:59 Intake Total 450 / 450 714 / 714 112 / 112 Output Total 600 / 600 Balance -150 / -150 714 / 714 112 / 112 Lab / Micro Data 05/09/24 05:50 05/09/24 05:50 Labs: Laboratory Results - last 24 hr 05/08/24 10:13: Haptoglobin 133, Lactate Dehydrogenase 390 H, Direct Antiglob Test NEG w/POLYSPECIFIC 05/09/24 05:50: WBC SYS DIR, Corrected WBC 31.8 H*, RBC 5.47 H, Hgb 13.6, Hct 42.6, M CV 77.9 L, MCH 24.9 L, MCHC 31.9 L, RDW Std Deviation 62.6 H, RDW Coeff of Joya 23.2 H, Plt Count 13 L*, MPV TNP, Neut % (Auto) Not Reportable, Absolute Neuts (auto) 26.4 H, Absolute Lymphs (auto) 0.95, Total Counted 100, Neutrophils % (Manual) 78 H, Band Neutrophils % 5, Lymphocytes % (Manual) 3 L, Monocytes % (Manual) 6, Metamyelocytes % 7 H, Myelocytes % 1 H, Nucleated RBCs/100 WBC 5, Differential Comment MANUAL, Diff Path Review May , Platelet Estimate MKD DEC, Polychromasia 1+, Anisocytosis 2+, Microcytosis 1+, Macrocytosis 1+, Sodium 135 L, Potassium 3.8, Chloride 108 H, Carbon Dioxide 20.0 L, Anion Gap 8, BUN 49 H, Creatinine 1.39 H, Estim Creat Clear Calc 39.10, Est GFR (MDRD) Af Amer 47 L, Est GFR (MDRD) Non-Af 39 L, BUN/Creatinine Ratio 35.3 H, Glucose 108 H, Calcium 8.5 Micro: Microbiology 05/07/24 01:05 Sputum, Expectorated/Coughed Gram Stain - Final 05/07/24 01:05 Sputum, Expectorated/Coughed Respiratory Culture - Final Ericka albicans 05/06/24 21:36 Urine, Random Urine Culture - Final Presumptive E. coli 05/04/24 11:15 Blood Culture (Wb) - Anticubital Left Bacteria Detection (PCR) - Final Streptococcus pneumo 05/04/24 11:15 Blood Culture (Wb) - Anticubital Left Blood Culture - Final Streptococcus pneumoniae 05/05/24 18:15 Urine, Catheterized Urine Culture - Final ESBL Escherichia coli 05/07/24 07:27 Stool Enteric Bacteriology - Final 05/05/24 17:26 Mucosa - Nose Respiratory Panel (PCR) - Final 05/05/24 17:30 Nasal Secretion MRSA (PCR) - Final 05/05/24 18:15 Urine, Clean Catch Legionella Antigen - Final 05/05/24 18:15 Urine, Clean Catch Streptococcus pneumoniae Antigen (M - Final Streptococcus pneumonia Ag 05/04/24 11:45 Mucosa - Nose SARS-CoV-2, Influenza & RSV (PCR) - Final Physical Exam Narrative Seen and examined Overall patient states that shortness of breath is better. On 5 L of oxygen. Platelet count 13,000. Physical exam General: Alert, Oriented x3, Cooperative HEENT: Atraumatic, PERRLA, EOMI, Normocephalic Oral: Crusted dry, black color, scab on lower lip. No oral petechia/mucosal bleeding. No Gingival or Mucosal Lesions/ Ulcerations Neck: Supple, No JVD, Negative Carotid Bruits Chest wall/Lungs: Air entry diminished in bilateral lungs. Bilateral coarse crepitations improving. Cardiovascular: Sinus rhythm, Normal S1, Normal S2, No M/G/R Abdomen: Bowel Sounds Present, Soft, Non Tender, Non-Distended : No dysuria. No renal angle tenderness. No suprapubic tenderness. Extremities: Left leg more edematous than right. Left hand is also edematous probably from IV line. Capillary Refill Less than 3 Seconds Skin: No rashes, No breakdown. No petechial rash or bruise or ecchymosis Musculoskeletal: No Tenderness to Palpation of Joints or Extremities Neurological: Cranial nerves II-XII grossly intact, DTR 2+/4. No acute focal neurological deficit. Psych/Mental Status: Flat affect. Assessment & Plan Assessment/Plan (1) Sepsis: (2) Respiratory failure: (3) Acute kidney injury superimposed on chronic kidney disease: (4) Septic shock: PLAN: Plan 78-year-old female was admitted with shortness of breath with hypoxia from PCP office along with generalized weakness getting worse over the last few days to weeks. #Sepsis due to pneumonia, complicated with bacteremia due to strep pneumoniae. * admitted with a complaint of shortness of breath and images showed right sided pneumonia. * wbc was elevated at 38.1 and 40K * She was tachycardic and tachypneic on admission and was also febrile. * hydrated with IVF per sepsis protocol * ID on board * COVID is negative. Respiratory panel negative. Sputum cultures and blood cultures pending. * Urine for strep pneumonia was positive. 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 * was started on IV ceftriaxone and azithromycin; changed to IV vancomycin and zosyn. * Chest x-ray on admission showed findings suggestive of a complete collapse of the left lung and persistent infiltrate in the right lower lobe. * CT chest showed a left hilar mass and left-sided mediastinal lymphadenopathy with narrowing of the left upper lobe bronchus causing collapse of the left upper lobe and lingula segment of the left lower lobe with mild loss versus consolidation in the posterior medial segment of the right lower lobe and shift of the heart and mediastinal structures towards the left of the midline 05/06: Leukocytosis 33.9 thousand. SOB/hypoxemia slightly better. Seen by repair cameraman recommended transfer to PCU. IV antibiotic narrowed down to ceftriaxone and Flagyl. Patient history of CAD 05/08: WBC count is improving. 03/09: WBC corrected 31.8 thousand still elevated. On Unasyn. #Acute hypoxic respiratory failure due to pneumonia and left hilar mass with collapse of the left upper lobe * on BIPAP at 80% FiO2 * titrate oxyten to maintain sats >90% * breathing treatment with bronchodilators * repair cameraman on board * 2D echo showed EF of 65% and unable to assess diastolic function. Left atrium enlarged. Suggestive of possible chronic HFpEF. Normal right ventricle. * CT chest as above #Left lung mass: As above. Management as per pulmonology #CEASAR on CKD IIIa * Cr was 1.93 on admission. Creatinine is now down to 1.78. Her baseline is around 1.05. * Been hydrated gently with IV fluids. Will trend creatinine. 05/09: Creatinine is improving from 1.93-1.39. Bilateral leg swelling left more than right and left upper EXTR swelling probably from fluid: Venous duplex of bilateral lower extremity was negative in December 2023. Does not have history of DVT. Bilateral venous duplex and left upper extremity duplex ordered. Not on anticoagulant or antiplatelet because of severe thrombocytopenia as mentioned below. Lasix 40 mg IV ordered. #A-fib with RVR. * Patient went into A-fib with RVR this morning. * She did receive some digoxin. * She was started on amiodarone bolus and amiodarone drip. * 2D echo as above. 05/06: Currently patient in sinus rhythm. Was bradycardia in the morning but heart rate currently 64/min. Amiodarone is discontinued. #Elevated troponins * Thought to be due to sepsis and A-fib with RVR. Does not seem ACS/WA type I but from increased demand * Initial troponin was 316 and trended down to 294. 2D echo as above. # History of C Diff * currently not having diarrhea. * She has had numerous episodes of C Diff. * ID on board 05/07 she stated that she was started on C. difficile medication in March 2024 for 3 months but review of her medical record shows she was on vancomycin in November and January 2023 # Chronic thrombocytopenia She does have a history of thrombocytopenia from December 2023 with platelets being as low as 28. 05/06: Platelet count has been low since December 2023 but was also transiently low in November 2022. 52,000, 31,000. 05/08: With severe thrombocytopenia initially I called Dr. Babatunde Kim but he did not call back. Then I called Dr. Babatunde Arias and he called back and we discussed. Patient already on third dose of Avatrombopag 20 mg daily. It is expected that his platelet count might go up. On discussion, no need for platelet transfusion. Monitor platelet count daily. His platelet count might be low due to sepsis but since he is recovering expected to improve. 05/09: Platelet count further decreased to 13,000 therefore 1 unit of platelet pheresis ordered. No active epistaxis mucosal bleeding/oral bleeding but dried crusted black in color on lower legs. No petechial rash on the skin. #Transaminitis: Total bilirubin was 2.5, and 1.6 1.8. Was likely due to sepsis and acute illness. Continue monitor #DVT prophylaxis; SCDs Charges/Coding Addendum Addendum: Total time of the visit including total time spent in counseling or coordination of care, (more than 50% of the total time, spent in obtaining medical information from nurses and other ancillary care providers ,explaining to the patient about labs, imaging, diagnosis and management of active complex medical conditions), multiple complex problem including severe thrombocytopenia, leukocytosis, CKD, bilateral lower extremity edema and left upper extremity, review of labs and imaging is 35 minutes. Visit Charges Inpatient E&M: 75141 [facility] L[facility]
--- NOTE | 2024-05-09 14:51 | PN.CC_ITS ---
Objective Data Objective Data Vital Signs: Vital Signs Last response 3 Temperature 36.5 C L 05/09/24 09:35 Temperature Source Temporal 05/09/24 09:35 Pulse Rate 77 05/09/24 10:00 Pulse Strength Normal (2+) 05/09/24 10:00 Respiratory Rate 18 05/09/24 09:35 Respiratory Effort Normal, Non-Labored 05/09/24 07:51 Respiratory Depth Normal 05/09/24 07:51 Respiratory Pattern Normal 05/09/24 07:23 Blood Pressure 130/74 H 05/09/24 09:35 Blood Pressure Mean 92 05/09/24 09:35 Blood Pressure Source Monitor 05/09/24 09:35 Blood Pressure Position Semi-Fowlers 05/09/24 09:35 Blood Pressure Location Left Arm 05/09/24 09:35 Pulse Ox 95 05/09/24 09:35 Oxygen Delivery Method Nasal Cannula 05/09/24 09:35 Oxygen Flow Rate (L/min) 5 05/09/24 11:56 Fraction of Inspired Oxygen (FIO2) 45 05/09/24 02:11 I&O: I&O Last 24 Hours 3 05/08/24 05/09/24 05/09/24 23:59 11:59 23:59 Intake Total 714 / 714 112 / 112 Balance 714 / 714 112 / 112 I&O: Total Stay 3 05/04/24 11:11 thru 05/09/24 12:00 Intake Total 57292.54 Output Total 1200 Balance 53581.54 Current Meds Ordered / Administered: Current meds ordered / Administered 3 Generic Name Dose Route Start Last Admin Trade Name Agustin PRN Reason Stop Dose Admin Acetaminophen 650 mg 05/04/24 15:19 Acetaminophen 325 Mg Tablet PO Q6H PRN PRN Pain 1-10 Or Fever >100.7 Albuterol Sulfate 2.5 mg 05/04/24 15:19 Albuterol 2.5 Mg/3 Ml Vial.Neb. INHALATION Q2H PRN PRN SOB &/OR WHEEZING Albuterol/Ipratropium 3 ml 05/08/24 10:45 05/09/24 14:47 Ipratropium/Albuterol Sulfate 3 Ml Ampul.Neb INHALATION 3 ml Q4HWA.RT DWIGHT Administration Guaifenesin 1,200 mg 05/04/24 22:00 05/09/24 09:31 Guaifenesin 1,200 Mg Tablet PO 1,200 mg BID DWIGHT Administration Ampicillin Sodium/Sulbactam 112 mls @ 150 mls/hr 05/08/24 14:00 05/09/24 14:50 Sodium 3 gm/ Sodium Chloride IV 150 mls/hr Q8 DWIGHT Administration Lidocaine/Diphenhydr/Alum/Mg/Simeth 15 ml 05/07/24 09:31 Bmx Liquid 180 Ml PO Q3H PRN PRN sore mouth Melatonin 3 mg 05/04/24 15:19 Melatonin 3 Mg Tablet PO QHS PRN PRN INSOMNIA Senna/Docusate Sodium 2 tablet 05/04/24 15:19 Senna/Docusate Sodium 1 Tablet PO BID PRN PRN Constipation Sodium Chloride 10 - 40 ml 05/04/24 15:33 05/09/24 14:51 0.9% Saline Lock 10 Ml Syringe IV 10 ml UD PRN Administration SALINE FLUSH Sodium Chloride 2 spray 05/07/24 09:31 05/08/24 06:01 Sodium Chloride 0.65% 1 Wakefield Wakefield.Btl NASAL 2 spray TID PRN PRN Administration NASAL DRYNESS Lab / Micro Data Attestation: I reviewed the patient's lab results. 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, Corrected WBC 31.8 H*, RBC 5.47 H, Hgb 13.6, Hct 42.6, M CV 77.9 L, MCH 24.9 L, MCHC 31.9 L, RDW Std Deviation 62.6 H, RDW Coeff of Joya 23.2 H, Plt Count 13 L*, MPV TNP, Neut % (Auto) Not Reportable, Absolute Neuts (auto) 26.4 H, Absolute Lymphs (auto) 0.95, Total Counted 100, Neutrophils % (Manual) 78 H, Band Neutrophils % 5, Lymphocytes % (Manual) 3 L, Monocytes % (Manual) 6, Metamyelocytes % 7 H, Myelocytes % 1 H, Nucleated RBCs/100 WBC 5, Differential Comment MANUAL, Diff Path Review May foll, Platelet Estimate MKD DEC, Polychromasia 1+, Anisocytosis 2+, Microcytosis 1+, Macrocytosis 1+, Sodium 135 L, Potassium 3.8, Chloride 108 H, Carbon Dioxide 20.0 L, Anion Gap 8, BUN 49 H, Creatinine 1.39 H, Estim Creat Clear Calc 39.10, Est GFR (MDRD) Af Amer 47 L, Est GFR (MDRD) Non-Af 39 L, BUN/Creatinine Ratio 35.3 H, Glucose 108 H, Calcium 8.5 Micro: Microbiology 05/07/24 01:05 Sputum, Expectorated/Coughed Gram Stain - Final 05/07/24 01:05 Sputum, Expectorated/Coughed Respiratory Culture - Final Ericka albicans 05/06/24 21:36 Urine, Random Urine Culture - Final Presumptive E. coli 05/04/24 11:15 Blood Culture (Wb) - Anticubital Left Bacteria Detection (PCR) - Final Streptococcus pneumo 05/04/24 11:15 Blood Culture (Wb) - Anticubital Left Blood Culture - Final Streptococcus pneumoniae Assessment and Plan . Assessment and plan: [facility] Medical Records Department [address] [place] [id number] Progress Note - Outpatient Admitting Clerk 05/08/24 1359 MR#: [id number] Acct: [id number] Name: TASHA MCNALLY Rep #: [id number] : 1945 78 From: Augustine Kyle MD PCP: Dr. Frank Salinas MD Status: ADM IN Location: [place] [address] Objective Data Objective Data Vital Signs: Vital Signs Last response Temperature 36.4 C L 05/08/24 09:40 Temperature Source Oral 05/08/24 09:40 Pulse Rate 84 05/08/24 10:53 Respiratory Rate 20 H 05/08/24 10:53 Respiratory Effort Short of Breath, Labored 05/08/24 03:31 Respiratory Depth Normal 05/08/24 03:31 Respiratory Pattern Normal 05/08/24 07:25 Blood Pressure 115/92 H 05/08/24 09:40 Blood Pressure Mean 99 05/08/24 09:40 Blood Pressure Source Monitor 05/08/24 09:40 Blood Pressure Position Sitting 05/08/24 09:40 Blood Pressure Location Left Arm 05/08/24 09:40 Pulse Ox 95 05/08/24 11:51 Oxygen Delivery Method High Flow 05/08/24 09:40 Oxygen Flow Rate (L/min) 5 05/08/24 11:51 Fraction of Inspired Oxygen (FIO2) 45 05/08/24 03:31 I&O: I&O Last 24 Hours 05/07/24 05/08/24 05/08/24 23:59 11:59 23:59 Intake Total 50 / 450 Balance 50 / -150 I&O: Total Stay 05/04/24 11:11 thru 05/08/24 05:51 Intake Total 03941.54 Output Total 1200 Balance 9794.54 Current Meds Ordered / Administered: Current meds ordered / Administered Generic Name Dose Route Start Last Admin Trade Name Freq PRN Reason Stop Dose Admin Acetaminophen 650 mg 05/04/24 15:19 Acetaminophen 325 Mg Tablet PO Q6H PRN PRN Pain 1-10 Or Fever >100.7 Albuterol Sulfate 2.5 mg 05/04/24 15:19 Albuterol 2.5 Mg/3 Ml Vial.Neb. INHALATION Q2H PRN PRN SOB &/OR WHEEZING Albuterol/Ipratropium 3 ml 05/08/24 10:45 05/08/24 10:53 Ipratropium/Albuterol Sulfate 3 Ml Ampul.Neb INHALATION 3 ml Q4HWA.RT DWIGHT Administration Guaifenesin 1,200 mg 05/04/24 22:00 05/08/24 09:45 Guaifenesin 1,200 Mg Tablet PO 1,200 mg BID DWIGHT Administration Ampicillin Sodium/Sulbactam 112 mls @ 150 mls/hr 05/08/24 14:00 Sodium 3 gm/ Sodium Chloride IV Q8 DWIGHT Lidocaine/Diphenhydr/Alum/Mg/Simeth 15 ml 05/07/24 09:31 Bmx Liquid 180 Ml PO Q3H PRN PRN sore mouth Melatonin 3 mg 05/04/24 15:19 Melatonin 3 Mg Tablet PO QHS PRN PRN INSOMNIA Senna/Docusate Sodium 2 tablet 05/04/24 15:19 Senna/Docusate Sodium 1 Tablet PO BID PRN PRN Constipation Sodium Chloride 10 - 40 ml 05/04/24 15:33 05/06/24 05:16 0.9% Saline Lock 10 Ml Syringe IV 20 ml UD PRN Administration SALINE FLUSH Sodium Chloride 2 spray 05/07/24 09:31 05/08/24 06:01 Sodium Chloride 0.65% 1 Wakefield Wakefield.Btl NASAL 2 spray TID PRN PRN Administration NASAL DRYNESS Lab / Micro Data 05/08/24 06:16 05/08/24 06:16 Labs: Laboratory Results - last 24 hr 05/08/24 06:16: WBC 28.7 H, RBC 5.47 H, Hgb 13.6, Hct 42.3, MCV 77.3 L, MCH 24.9 L, MCHC 32.2, RDW Std Deviation 61.1 H, RDW Coeff of Joya 23.1 H, Plt Count 16 L* , MPV TNP, Neut % (Auto) Not Reportable, Absolute Neuts (auto) 23.0 H, Absolute Lymphs (auto) 1.72, Total Counted 100, Neutrophils % (Manual) 80 H, Band Neutrophils % 1, Lymphocytes % (Manual) 6 L, Monocytes % (Manual) 2, Eosinophils % (Manual) 1, Metamyelocytes % 5 H, Myelocytes % 5 H, Nucleated RBCs/100 WBC 4, Diff Path Review October, Platelet Estimate MKD DEC, Polychromasia RARE, Anisocytosis 2+, Microcytosis 1+, Sodium 135 L, Potassium 3.7, Chloride 108 H, C arbon Dioxide 19.0 L, Anion Gap 9, BUN 55 H, Creatinine 1.54 H, Estim Creat Clear Calc 35.28, Est GFR (MDRD) Af Amer 42 L, Est GFR (MDRD) Non-Af 35 L, B UN/Creatinine Ratio 35.7 H, Glucose 102, Calcium 8.4 L, Total Bilirubin 1.40 H, Direct Bilirubin 0.98 H, AST 29, ALT < 6 L, Alkaline Phosphatase 165 H, Total Protein 5.7 L, Albumin 1.6 L, Globulin 4.1 05/08/24 10:13: Lactate Dehydrogenase 390 H, Direct Antiglob Test NEG w/POLYSPECIFIC Micro: Microbiology 05/07/24 01:05 Sputum, Expectorated/Coughed Gram Stain - Final 05/07/24 01:05 Sputum, Expectorated/Coughed Respiratory Culture - Preliminary Ericka albicans 05/05/24 18:15 Urine, Catheterized Urine Culture - Final ESBL Escherichia coli 05/07/24 07:27 Stool Enteric Bacteriology - Final Assessment and Plan . Assessment and plan: 1. Acute hypoxemic respiratory failure - bacteremic pneumococcal pneumonia, - hilar [place]COL[place]-repeat CT chest completed 6 to 8 weeks after discharge to follow up endobronchial abnormalities noted. 2. Sepsis The patient presented with sepsis due to pneumococcal pneumonia with secondary bacteremia, with acute sepsis related organ dysfunction as evidenced by lactic acidemia, hyperbilirubinemia and acute respiratory failure requiring noninvasive positive pressure ventilatory support. The patient remains hemodynamically stable. Continue antimicrobials per ID recommendations. 3. Atrial fibrillation with RVR/troponin elevation Resolved. The patient experienced transient atrial fibrillation with RVR, which responded to medical therapy with amiodarone. She is currently in normal sinus rhythm. Echocardiogram was unremarkable. I suspect that her elevated troponin is likely secondary to demand ischemia in the setting of #1 and 2. 4. Acute on chronic kidney disease Most likely prerenal in etiology in the setting of #1 and 2. Creatinine has improved somewhat following fluid resuscitation. Continue to monitor urine output for now. No current indication for renal replacement therapy. 5. History of thrombocytopenia/history of C. difficile colitis/troponin elevation Complicates care, management, recovery and prognosis. Continue home medications as indicated. Critical Care Time: 50 minutes The entirety of this encounter was done via Telemedicine Critical Care Time: The entirety of this encounter was done via Telemedicine Physical Exam Const no apparent distress General Appearance: cooperative Neck full ROM Resp normal respiratory effort Effort and Inspection: able to speak in complete sentences Subjective Subjective No significant developments overnight
--- NOTE | 2024-05-09 15:17 | VDLE_ITS ---
Reason For Study: BLE Swelling RIGHT LEFT Acute SVT noted in ASV approximately 2.1cm GSV is compressible ankle to knee. Unable to distal to SFJ only within small portion of visualize, knee to SFJ. vessel. Unable to visualize GSV. Pt reports CFV is PARTIALLY COMPRESSIBLE with web like HX of GSV ablation/stripping. intraluminal echoes. Finding is consistent CFV is compressible, spontaneous, competent CHRONIC DVT. Flow appears spontaneous, and demonstrates pulsatile venous flow. competent, and demonstrates pulsatile venous FV is compressible, spontaneous, competent flow. and demonstrates pulsatile venous flow. FV is compressible, spontaneous, competent POP V is compressible, spontaneous, and and demonstrates pulsatile venous flow. pulsatile. POP V is compressible, spontaneous, and T/P Trunk is compressible. pulsatile. Acute deep vein thrombosis is noted in the T/P Trunk is compressible. PTV. It is dilated and NONCOMPRESSIBLE. Acute deep vein thrombosis is noted in the RT PerV is compressible. PTV. It is dilated and NONCOMPRESSIBLE. Acute deep vein thrombosis is noted in the Acute deep vein thrombosis is noted in the Soleus V. It is dilated and NONCOMPRESSIBLE. Per V. It is dilated and NONCOMPRESSIBLE. Procedure Acute deep vein thrombosis is noted in the This is a venous duplex using B-mode, color Soleus V. It is dilated and NONCOMPRESSIBLE. flow and spectral Doppler. Exam performed portable in patient room. Non vascularized Anechoic area noted in Lt The exam was diagnostic. Pop Fossa measuring approximately 7.25cm x A preliminary report was called and/or faxed 3.60cm. to [facility] [employer] theater education teacher. VL/Venous Duplex US - Balaji Extrem Interpretation Summary Acute deep vein thrombosis is noted in the right posterior tibial vein, soleus vein. Acute superficial vein thrombosis noted in the right accessory saphenous vein a t the saphenofemoral junction. Acute deep vein thrombosis noted in the left posterior tibial vein, peroneal ve in, soleus vein. Chronic deep vein thrombosis noted in the left common femoral vein Ordering Physician: Reuben Hogan Referring Physician: Frank Salinas Performed By: Fly Manning RVT
--- NOTE | 2024-05-09 15:17 | VDUE_ITS ---
Reason For Study: Shortness of Breath Left Proximal Left jugular vein is spontaneous, widely patent, phasic, with no intraluminal echogenicity noted. Left subclavian vein is spontaneous, widely patent, phasic, with no intraluminal echogenicity noted. Left Arm Left axillary vein is spontaneous, patent, phasic, competent, compressible and demonstrates augmentation. Left brachial vein is compressible. Lt Cephalic Vein is dilated and NONCOMPRESSIBLE from proximal forearm to shoulder. Vessel is compressible from wrist to mid forearm. Lt Median Cubital vein is dilated and NONCOMPRESSIBLE. Left basilic vein is compressible. Left Lower Arm Left radial vein is compressible. Left ulnar vein is compressible. Patient Safety Preliminary results delivered to [facility] industrial twisting machine operator. VL/Venous Duplex US, Unilateral Interpretation Summary Acute superficial vein thrombosis noted in the left cephalic vein and median cu bital vein Ordering Physician: Reuben Hogan Referring Physician: Frank Salinas Performed By: Fly Manning RVT ???
[2024-05-09] MEDS: Furosemide 40 MG/4 ML Vial IV (17:00)
[2024-05-10] VITALS (19 sets, daily range): BP systolic 125–154; BP diastolic 71–87; PULSE 62–79; RESP 12–21; TEMP 35.8–36.9; O2SAT 92–97; BMI 35.8
[2024-05-10] MEDS: 0.9% Saline Lock 10 ML Syringe IV ×2 (05:12→21:46)
[2024-05-10] MEDS: Ampicillin/Sulbactam 3 GM in 0.9% Normal Saline (100mL MB+) 100 ML IV (05:12)
[2024-05-10 06:42] LABS: Hematocrit 39.4 % (37-47); Hemoglobin 12.6 g/dL (12.0-15.0); Mean Corpuscular Volume 78.3 fL (81-99); POSITIVE COUNT YES; POSITIVE DIFFERENTIAL YES; POSITIVE MORPHOLOGY YES; RBC Distribution Width CV 22.8 % (11.6-14.6); RBC Distribution Width SD 62.7 fl (35.1-43.9); Red Blood Count 5.03 M/mm3 (4.2-5.4)
[2024-05-10 06:49] LABS: Differential Indicated MANUAL DIFF; Platelet Count 27 K/mm3 (150-450); White Blood Count 34.2 K/mm3 (4.4-11.0)
[2024-05-10] MEDS: Ipratropium/Albuterol Sulfate 3 ML AMPUL.NEB INHALATION ×4 (07:16→20:04)
[2024-05-10 07:38] LABS: AST(SGOT) 22 U/L (15-37); Alanine Aminotransfer ALT/SGPT < 6 U/L (13-56); Albumin, Serum 1.5 g/dL (3.2-5.0); Alkaline Phosphatase 217 U/L (45-117); Anion Gap 8 (5-15); BUN 44 mg/dL (7-18); BUN/Creat Ratio 35.2 RATIO (10-20); Bilirubin, Direct 0.55 mg/dL (0.00-0.30); Calcium,Total 8.2 mg/dL (8.5-10.1); Chloride 107 mmol/L (98-107); Creatinine, Serum 1.25 mg/dL (0.55-1.02); EST Glomerular Filtration Rate 44 mL/min (>60); Est Glom Filt Rate - Afr Amer 54 mL/min (>60); Estimated Creatinine Clearance 43.44 ml/min; Globulin 4.2 g/dL (2.2-4.2); Glucose 103 mg/dL (74-106); Potassium 3.8 mmol/L (3.5-5.1); Protein, Total 5.7 g/dL (6.4-8.2); Sodium Level 136 mmol/L (136-145)
[2024-05-10 07:45] LABS: Eosinophil 2 % (0-5); Lymphocyte 6 % (19-41); Metamyelocyte 7 % (0-1); Myelocyte 5 % (0-0); Neutrophil-Band 5 % (0-5); Neutrophil-Segmented 75 % (47-70); Nucleated Red Bld Cells,Manual 1 % (0-5); Red Cell Morphology NORM C+C NORMAL (NORM C&C); Total Cells Counted 100 (MANUAL DIFF)
[2024-05-10 07:46] LABS: Absolute Neutrophil Count 27.3 X10^3/uL (2.0-7.7); Platelet Estimate MKD DEC (ADEQ); Platelet Morphology GIANT
[2024-05-10] MEDS: Lactobacillis Acidophilus 1 CAP PO ×2 (09:39→21:47)
[2024-05-10] MEDS: [UNRECOGNIZED DRUG - OTHER] PO (09:39)
[2024-05-10] MEDS: guaiFENesin 1,200 MG Tablet 1200 MG PO ×2 (09:39→21:47)
[2024-05-10] MEDS: Furosemide 40 MG/4 ML Vial IV (09:52)
--- NOTE | 2024-05-10 10:01 | PN.HOSP_ITS ---
Reason for Visit Reason for Visit: Diagnoses Sepsis, unspecified organism (05/04/24) Pneumonia, unspecified organism (05/04/24) Respiratory failure, unspecified, unspecified whether with hypoxia or hypercapnia (05/04/24) Acute kidney failure, unspecified (05/04/24) Chronic kidney disease, unspecified (05/04/24) Severe sepsis with septic shock (05/04/24) Subjective Subjective Patient is a 78-year-old female sent from PCPs office with progressive generalized weakness and shortness of breath and assessment of sepsis secondary to pneumonia was made admitted to a monitored bed for further management Objective Data Objective Data Vital Signs: Vital Signs Temp Pulse Resp BP Pulse Ox O2 Del Method O2 Flow Rate 96.7 F L 71 18 125/74 H 95 Nasal Cannula 5 05/10/24 07:52 05/10/24 07:52 05/10/24 07:52 05/10/24 07:52 05/10/24 09:26 05/10/24 07:52 05/10/24 09:26 FiO2 45 05/10/24 04:53 Oxygen Flow Rate (L/min) 5 Oxygen Delivery Method Nasal Cannula Weight: 97.6 kg Body Mass Index (BMI) 35.8 Intake & Output: Intake and Output for Last 24 Hours 05/08/24 05/09/24 05/10/24 23:59 23:59 23:59 Intake Total 714 / 714 336 / 576 370 / 370 Balance 714 / 714 336 / 576 370 / 370 Lab / Micro Data 05/10/24 05:43 05/10/24 05:43 Labs: Laboratory Results - last 24 hr 05/08/24 10:13: Blood Type A POSITIVE 05/10/24 05:43: WBC 34.2 H*, RBC 5.03, Hgb 12.6, Hct 39.4, MCV 78.3 L, MCH 25.0 L, MCHC 32.0, RDW Std Deviation 62.7 H, RDW Coeff of Joya 22.8 H, Plt Count 27 L* , MPV TNP, Neut % (Auto) Not Reportable, Absolute Neuts (auto) 27.3 H, Absolute Lymphs (auto) 2.10, Total Counted 100, Neutrophils % (Manual) 75 H, Band Neutrophils % 5, Lymphocytes % (Manual) 6 L, Eosinophils % (Manual) 2, M etamyelocytes % 7 H, Myelocytes % 5 H, Nucleated RBCs/100 WBC 1, Diff Path Review May foll, Platelet Estimate MKD DEC, Plt Morphology Comment GIANT, RBC Morphology NORM C+C, Sodium 136, Potassium 3.8, Chloride 107, Carbon Dioxide 21.0, Anion Gap 8, BUN 44 H, Creatinine 1.25 H, Estim Creat Clear Calc 43.44, E st GFR (MDRD) Af Amer 54 L, Est GFR (MDRD) Non-Af 44 L, BUN/Creatinine Ratio 35.2 H, Glucose 103, Calcium 8.2 L, Total Bilirubin 1.10 H, Direct Bilirubin 0.55 H, AST 22, ALT < 6 L, Alkaline Phosphatase 217 H, Total Protein 5.7 L, A lbumin 1.5 L, Globulin 4.2 Micro: Microbiology 05/07/24 01:05 Sputum, Expectorated/Coughed Gram Stain - Final 05/07/24 01:05 Sputum, Expectorated/Coughed Respiratory Culture - Final Ericka albicans 05/06/24 21:36 Urine, Random Urine Culture - Final Presumptive E. coli 05/04/24 11:15 Blood Culture (Wb) - Anticubital Left Bacteria Detection (PCR) - Final Streptococcus pneumo 05/04/24 11:15 Blood Culture (Wb) - Anticubital Left Blood Culture - Final Streptococcus pneumoniae 05/05/24 18:15 Urine, Catheterized Urine Culture - Final ESBL Escherichia coli 05/07/24 07:27 Stool Enteric Bacteriology - Final 05/05/24 17:26 Mucosa - Nose Respiratory Panel (PCR) - Final 05/05/24 17:30 Nasal Secretion MRSA (PCR) - Final 05/05/24 18:15 Urine, Clean Catch Legionella Antigen - Final 05/05/24 18:15 Urine, Clean Catch Streptococcus pneumoniae Antigen (M - Final Streptococcus pneumonia Ag 05/04/24 11:45 Mucosa - Nose SARS-CoV-2, Influenza & RSV (PCR) - Final Physical Exam Narrative GENERAL: cooperative HEENT: Atraumatic; normocephalic EYES; Anicteric, Normal Conjunctiva NECK; supple, normal thyroid, RESPIRATORY: Diminished to auscultation CARDIOVASCULAR: Regular S1 S2, GI: soft, normoactive bowel sounds, : No Renal angle tenderness; EXTREMITIES: No edema, no clubbing, MUSCULOSKELETAL: no muscle wasting NEURO: Awake; no lateralizing signs. SKIN: No Rash PSYCH; Flat affect Const alert, oriented x3 and no apparent distress Constitutional Narrative: frail, weak General Appearance: cooperative HEENT normocephalic, head/scalp atraumatic, moist oral mucous membranes and oropharynx normal Eyes PERRL and EOMs intact bilaterally Neck no lymphadenopathy and supple Resp Resp Narrative: moderately diminished breath sounds bibasally, no wheezes, few crackles. ON BIPAP Cardio regular rate, regular rhythm, S1 normal heart sound, S2 normal heart sound and no murmurs GI normal to inspection, nondistended, normoactive bowel sounds, soft to palpation, non-tender and non-distended Extremity normal capillary refill, no clubbing, cyanosis or edema and no calf tenderness General Extremity: no tenderness to palpation of joints or extremities Skin General Skin Exam: no breakdown Neuro CN's II-XII intact bilaterally, no focal motor deficits, no sensory deficits noted and deep tendon reflexes 2+ bilaterally Motor Exam: strength 5/5 throughout and general weakness Psych thought process normal and cooperative Appearance: appropriate Assessment & Plan Assessment/Plan (1) Sepsis: (2) Respiratory failure: (3) Acute kidney injury superimposed on chronic kidney disease: PLAN: Plan Patient is a 78-year-old female sent from PCPs office with progressive generalized weakness and shortness of breath and assessment of sepsis secondary to pneumonia was made admitted to a monitored bed for further management 1. Sepsis ? Secondary to pneumonia with streptococcal pneumonia with bacteremia as well as acute cystitis 2. Pneumonia - secondary to streptococcal pneumonia, Blood and sputum cultures sent. Patient placed on Rocephin and Zithromax switched to vancomycin and Zosyn. Blood cultures and urine antigen both positive for streptococcal pneumonia 3. Acute cystitis with ESBL E. coli ?Zosyn discontinued started on meropenem 4. Lung mass ?CT chest showed a left hilar mass and left-sided mediastinal lymphadenopathy with narrowing of the left upper lobe bronchus causing collapse of the left upper lobe and lingula segment of the left lower lobe with mild loss versus consolidation in the posterior medial segment of the right lower lobe and shift of the heart and mediastinal structures towards the left of the midline. Consult was placed to pulmonary medicine 5. Acute hypoxic respiratory failure due to pneumonia and left hilar mass with collapse of the left upper lobe ? Patient was initially managed on noninvasive ventilation with BiPAP has since been weaned off to nasal cannula 6. Chronic congestive heart failure with preserved ejection fraction ? Echo demonstrated EF of 65% 7.Acute kidney injury ? Superimposed on chronic kidney disease stage IIIa. Monitoring with daily BMPs kidney function improving 8. Bilateral lower extremity swelling ? Venous duplex obtained did show bilateral below-knee DVT in the superficial cephalic DVT to the right upper extremity. Patient currently not a candidate for anticoagulation given her severe thrombocytopenia 9. Paroxysmal A-fib with RVR ? Patient was managed with amiodarone did develop bradycardia amiodarone subsequently discontinued. Patient not a candidate for systemic anticoagulation given her severe thrombocytopenia 10. Elevated troponin ? Secondary to demand ischemia patient presentation not consistent with acute coronary syndrome 11. Chronic thrombocytopenia patient treated with avatrombopag 20 mg daily. Subsequently monitoring with daily CBC with differential Time spent in the patient's overall evaluation,decision-making process, review of diagnostic data, adjustment of management, discussion with other providers, nursing nursing and ancillary staff involved in patient's care documentation, 50. Minutes Charges/Coding Visit Charges Inpatient E&M: 24411 [facility] L3
[2024-05-10] MEDS: Meropenem 1 GM in 0.9% Normal Saline (100mL MB+) 100 ML IV ×2 (11:38→21:46)
--- NOTE | 2024-05-10 12:09 | PCM.PN.INT ---
Assessment & Plan Assessment/Plan (1) Sepsis: (2) Acute kidney injury superimposed on chronic kidney disease: (3) Respiratory failure: PLAN: Plan RECOMMENDATIONS: 1. Continue antimicrobials per ID recommendations. 2. Wean supplemental oxygen to maintain saturations at or above 90%. 3. Continue scheduled bronchodilators. 4. Encourage incentive spirometer use and mobilize patient as tolerated. 5. Recommend follow-up CT chest 6 to 8 weeks after discharge for further characterization of left hilar mass. 6. Please ensure that the patient has follow-up in the pulmonary medicine office after discharge. IMPRESSIONS: 1. Acute hypoxemic respiratory failure Most likely related to underlying pneumococcal pneumonia, given the patient's presenting blood culture results. She does have significant lobar collapse on the left side, with possible left hilar mass and adenopathy noted on CT imaging. Overall, the patient's oxygen status has improved significantly with antimicrobial therapy. She will be continued on antibiotics per ID recommendations. Supplemental oxygen will be weaned to maintain saturations at or above 90%. I would recommend that the patient have a repeat CT chest completed 6 to 8 weeks after discharge. 2. Sepsis The patient presented with sepsis due to pneumococcal pneumonia with secondary bacteremia, with acute sepsis related organ dysfunction as evidenced by lactic acidemia, hyperbilirubinemia and acute respiratory failure requiring noninvasive positive pressure ventilatory support. The patient remains hemodynamically stable. Continue antimicrobials per ID recommendations. 3. Atrial fibrillation with RVR/troponin elevation Resolved. The patient experienced transient atrial fibrillation with RVR, which responded to medical therapy with amiodarone. She is currently in normal sinus rhythm. Echocardiogram was unremarkable. I suspect that her elevated troponin is likely secondary to demand ischemia in the setting of #1 and 2. 4. Acute on chronic kidney disease Most likely prerenal in etiology in the setting of #1 and 2. Creatinine has improved somewhat following fluid resuscitation. Continue to monitor urine output for now. No current indication for renal replacement therapy. 5. History of thrombocytopenia/history of C. difficile colitis/troponin elevation Complicates care, management, recovery and prognosis. Continue home medications as indicated. This note was generated with [employer] software. It may contain incorrect words, spelling, and punctuation that were not noted in checking the note before signing. Subjective Subjective The patient was seen and examined at the bedside this morning. Events from the last 24 hours have been reviewed. The patient is currently afebrile, hemodynamically stable and maintaining appropriate oxygen saturations on 3 L/min via nasal cannula. White count is elevated at 34,000. Platelet count is low at 27,000. Creatinine has improved to 1.25. The patient reported that she is feeling better from a respiratory perspective, but still has a lingering cough. Objective Data Objective Data The patient's most recent lab work, culture data and imaging studies have all been personally reviewed. Surface echocardiogram demonstrated normal LV size and function with an ejection fraction of 65%. Strep pneumo urinary antigen was positive. Blood cultures dated May 04 were positive for Streptococcus pneumonia. Vital Signs: Vital Signs Temp Pulse Resp BP Pulse Ox O2 Del Method O2 Flow Rate 97.8 F 70 18 142/82 H 95 Nasal Cannula 5 05/10/24 10:45 05/10/24 11:19 05/10/24 11:19 05/10/24 10:45 05/10/24 11:19 05/10/24 11:19 05/10/24 11:19 FiO2 45 05/10/24 04:53 Oxygen Flow Rate (L/min) 5 Oxygen Delivery Method Nasal Cannula Weight: 215 lb 2.738 oz Body Mass Index (BMI) 35.8 Intake & Output: Intake and Output for Last 24 Hours 05/08/24 05/09/24 05/10/24 23:59 23:59 23:59 Intake Total 714 / 714 336 / 576 370 / 370 Balance 714 / 714 336 / 576 370 / 370 Lab / Micro Data Attestation: I reviewed the patient's lab results. 05/10/24 05:43 05/10/24 05:43 Labs: Laboratory Results - last 24 hr 05/08/24 10:13: Blood Type A POSITIVE 05/10/24 05:43: WBC 34.2 H*, RBC 5.03, Hgb 12.6, Hct 39.4, MCV 78.3 L, MCH 25.0 L, MCHC 32.0, RDW Std Deviation 62.7 H, RDW Coeff of Joya 22.8 H, Plt Count 27 L*, MPV TNP, Neut % (Auto) Not Reportable, Absolute Neuts (auto) 27.3 H, Absolute Lymphs (auto) 2.10, Total Counted 100, Neutrophils % (Manual) 75 H, Band Neutrophils % 5, Lymphocytes % (Manual) 6 L, Eosinophils % (Manual) 2, Metamyelocytes % 7 H, Myelocytes % 5 H, Nucleated RBCs/100 WBC 1, Diff Path Review May foll, Platelet Estimate MKD DEC, Plt Morphology Comment GIANT, RBC Morphology NORM C+C, Sodium 136, Potassium 3.8, Chloride 107, Carbon Dioxide 21.0, Anion Gap 8, BUN 44 H, Creatinine 1.25 H, Estim Creat Clear Calc 43.44, Est GFR (MDRD) Af Amer 54 L, Est GFR (MDRD) Non-Af 44 L, BUN/Creatinine Ratio 35.2 H, Glucose 103, Calcium 8.2 L, Total Bilirubin 1.10 H, Direct Bilirubin 0.55 H, AST 22, ALT < 6 L, Alkaline Phosphatase 217 H, Total Protein 5.7 L, Albumin 1.5 L, Globulin 4.2 Micro: Microbiology 05/07/24 01:05 Sputum, Expectorated/Coughed Gram Stain - Final 05/07/24 01:05 Sputum, Expectorated/Coughed Respiratory Culture - Final Ericka albicans 05/06/24 21:36 Urine, Random Urine Culture - Final Presumptive E. coli 05/04/24 11:15 Blood Culture (Wb) - Anticubital Left Bacteria Detection (PCR) - Final Streptococcus pneumo 05/04/24 11:15 Blood Culture (Wb) - Anticubital Left Blood Culture - Final Streptococcus pneumoniae 05/05/24 18:15 Urine, Catheterized Urine Culture - Final ESBL Escherichia coli 05/07/24 07:27 Stool Enteric Bacteriology - Final 05/05/24 17:26 Mucosa - Nose Respiratory Panel (PCR) - Final 05/05/24 17:30 Nasal Secretion MRSA (PCR) - Final 05/05/24 18:15 Urine, Clean Catch Legionella Antigen - Final 05/05/24 18:15 Urine, Clean Catch Streptococcus pneumoniae Antigen (M - Final Streptococcus pneumonia Ag 05/04/24 11:45 Mucosa - Nose SARS-CoV-2, Influenza & RSV (PCR) - Final Radiography Diagnostic Testing: Radiology Impression Chest CT 05/05/24 09:10 IMPRESSION: Left hilar mass and left sided mediastinal adenopathy with narrowing of the left upper lobe bronchus causing collapse of the left upper lobe and lingular segment of the left upper lobe. Mild loss/consolidation in the posterior medial segment of the right lower lobe. Shift of the heart and mediastinal structures towards the left side of the midline. Electronically Signed: Pedro Mazariegos MD at 9:54 EST , Echocardiogram 05/05/24 09:17 Interpretation Summary Mild concentric left ventricular hypertrophy. The left ventricular ejection fraction is 65 %. The left atrium is mildly enlarged. Ordering Physician: Sukhwinder Wright Performed By: Dayne Grimm and Student Physical Exam Const alert, oriented x3 and no apparent distress Constitutional Narrative: Sitting in bedside recliner. General Appearance: cooperative HEENT normocephalic and head/scalp atraumatic Eyes PERRL, EOMs intact bilaterally and conjunctivae normal Neck supple General: trachea midline Chest inspection of chest normal Resp normal respiratory effort Auscultation: diminished lung sounds; Negative for rales, rhonchi or wheezes Cardio regular rate, regular rhythm, S1 normal heart sound and S2 normal heart sound GI normal to inspection, nondistended, normoactive bowel sounds Extremity no clubbing, cyanosis or edema Skin no rashes or lesions noted Neuro CN's II-XII intact bilaterally, moves all extremities and no focal motor deficits Psych cooperative and affect normal Charges/Coding Visit Charges Inpatient E&M: 90699 Subs Hosp L2
[2024-05-10 14:23] LABS: Pathologist Review Reviewed
[2024-05-10 14:29] LABS: Pathologist Review Reviewed
[2024-05-11] VITALS (16 sets, daily range): BP systolic 137–146; BP diastolic 74–79; PULSE 68–76; RESP 12–20; TEMP 35.8–36.6; O2SAT 88–98; BMI 34.8
[2024-05-11 07:02] LABS: Hematocrit 40.8 % (37-47); Hemoglobin 12.6 g/dL (12.0-15.0); Mean Corp Hgb Conc 30.9 g/dL (32-36); Mean Corpuscular Hgb 24.2 pg (27.0-32.0); Mean Corpuscular Volume 78.3 fL (81-99); POSITIVE COUNT YES; POSITIVE MORPHOLOGY YES; Red Blood Count 5.21 M/mm3 (4.2-5.4)
[2024-05-11 07:13] LABS: Platelet Count 20 K/mm3 (150-450)
[2024-05-11 07:27] LABS: ALB/GLOB Ratio 0.3 RATIO (0.9-2.4); AST(SGOT) 24 U/L (15-37); Alanine Aminotransfer ALT/SGPT 7 U/L (13-56); Albumin, Serum 1.5 g/dL (3.2-5.0); Alkaline Phosphatase 207 U/L (45-117); Anion Gap 8 (5-15); BUN 35 mg/dL (7-18); BUN/Creat Ratio 32.1 RATIO (10-20); Chloride 107 mmol/L (98-107); Creatinine, Serum 1.09 mg/dL (0.55-1.02); EST Glomerular Filtration Rate 52 mL/min (>60); Est Glom Filt Rate - Afr Amer 63 mL/min (>60); Estimated Creatinine Clearance 49.03 ml/min; Globulin 4.5 g/dL (2.2-4.2); Glucose 98 mg/dL (74-106); Magnesium 1.9 mg/dL (1.6-2.6); Phosphorus 4.3 mg/dL (2.5-4.9); Potassium 3.8 mmol/L (3.5-5.1); Sodium Level 135 mmol/L (136-145)
[2024-05-11] MEDS: Ipratropium/Albuterol Sulfate 3 ML AMPUL.NEB INHALATION ×4 (07:27→19:51)
--- NOTE | 2024-05-11 08:11 | PCM.PN.HOSP ---
Reason for Visit Reason for Visit: Diagnoses Sepsis, unspecified organism (05/04/24) Pneumonia, unspecified organism (05/04/24) Respiratory failure, unspecified, unspecified whether with hypoxia or hypercapnia (05/04/24) Acute kidney failure, unspecified (05/04/24) Chronic kidney disease, unspecified (05/04/24) Severe sepsis with septic shock (05/04/24) Subjective Subjective Patient seen remains frail. WBC count trending down as well as platelet count. Patient did request consultation with Dr. Kim consultation placed. Patient also complains of painful mouth patient is already on BMX added nystatin swish and Objective Data Objective Data Vital Signs: Vital Signs Temp Pulse Resp BP Pulse Ox O2 Del Method O2 Flow Rate 96.4 F L 70 20 H 146/75 H 93 Nasal Cannula 2 05/11/24 04:20 05/11/24 07:27 05/11/24 07:27 05/11/24 04:20 05/11/24 08:02 05/11/24 08:02 05/11/24 08:02 FiO2 40 05/10/24 23:30 Oxygen Flow Rate (L/min) 2 Oxygen Delivery Method Nasal Cannula Weight: 94.8 kg Body Mass Index (BMI) 34.8 Intake & Output: Intake and Output for Last 24 Hours 05/09/24 05/10/24 05/11/24 23:59 23:59 23:59 Intake Total 336 / 576 490 / 890 720 / 720 Balance 336 / 576 490 / 890 720 / 720 Lab / Micro Data 05/11/24 06:16 05/11/24 06:16 Labs: Laboratory Results - last 24 hr 05/08/24 06:16: Diff Path Review Reviewed 05/09/24 05:50: Diff Path Review Reviewed 05/11/24 06:16: WBC 29.0 H, RBC 5.21, Hgb 12.6, Hct 40.8, MCV 78.3 L, MCH 24.2 L, MCHC 30.9 L, RDW Std Deviation 62.0 H, RDW Coeff of Joya 23.0 H, Plt Count 20 L*, Immature Gran % (Auto) 25.600 H, Neut % (Auto) 61.1, Lymph % (Auto) 7.6 L, [place] % (Auto) 3.8, Eos % (Auto) 1.3, Baso % (Auto) 0.6, Absolute Neuts (auto) 17.8 H, Absolute Lymphs (auto) 2.20, Nucleated RBC % 1.8, Sodium 135 L, Potassium 3.8, Chloride 107, Carbon Dioxide 21.0, Anion Gap 8, BUN 35 H, Creatinine 1.09 H, Estim Creat Clear Calc 49.03, Est GFR (MDRD) Af Amer 63, Est GFR (MDRD) Non-Af 52 L, BUN/Creatinine Ratio 32.1 H, Glucose 98, Calcium 8.0 L, Phosphorus 4.3, Magnesium 1.9, Total Bilirubin 1.10 H, AST 24, ALT 7 L, Alkaline Phosphatase 207 H, Total Protein 6.0 L, Albumin 1.5 L, Globulin 4.5 H, Albumin/Globulin Ratio 0.3 L Micro: Microbiology 05/08/24 09:45 Sputum, Expectorated/Coughed Gram Stain - Final 05/07/24 01:05 Sputum, Expectorated/Coughed Gram Stain - Final 05/07/24 01:05 Sputum, Expectorated/Coughed Respiratory Culture - Final Ericka albicans 05/06/24 21:36 Urine, Random Urine Culture - Final Presumptive E. coli 05/04/24 11:15 Blood Culture (Wb) - Anticubital Left Bacteria Detection (PCR) - Final Streptococcus pneumo 05/04/24 11:15 Blood Culture (Wb) - Anticubital Left Blood Culture - Final Streptococcus pneumoniae 05/05/24 18:15 Urine, Catheterized Urine Culture - Final ESBL Escherichia coli 05/07/24 07:27 Stool Enteric Bacteriology - Final 05/05/24 17:26 Mucosa - Nose Respiratory Panel (PCR) - Final 05/05/24 17:30 Nasal Secretion MRSA (PCR) - Final 05/05/24 18:15 Urine, Clean Catch Legionella Antigen - Final 05/05/24 18:15 Urine, Clean Catch Streptococcus pneumoniae Antigen (M - Final Streptococcus pneumonia Ag 05/04/24 11:45 Mucosa - Nose SARS-CoV-2, Influenza & RSV (PCR) - Final Radiography Diagnostic Testing: Radiology Impression Venous Doppler Study 05/09/24 15:17 Interpretation Summary Acute deep vein thrombosis is noted in the right posterior tibial vein, soleus vein. Acute superficial vein thrombosis noted in the right accessory saphenous vein at the saphenofemoral junction. Acute deep vein thrombosis noted in the left posterior tibial vein, peroneal vein, soleus vein. Chronic deep vein thrombosis noted in the left common femoral vein Ordering Physician: Reuben Hogan Referring Physician: Frank Salinas Performed By: Fly Manning RVT Venous Doppler Study 05/09/24 15:17 Interpretation Summary Acute superficial vein thrombosis noted in the left cephalic vein and median cubital vein Ordering Physician: Reuben Hogan Referring Physician: Frank Salinas Performed By: Fly Manning RVT ??? Physical Exam Narrative GENERAL: cooperative HEENT: Atraumatic; normocephalic EYES; Anicteric, Normal Conjunctiva NECK; supple, normal thyroid, RESPIRATORY: Diminished to auscultation CARDIOVASCULAR: Regular S1 S2, GI: soft, normoactive bowel sounds, : No Renal angle tenderness; EXTREMITIES: No edema, no clubbing, MUSCULOSKELETAL: no muscle wasting NEURO: Awake; no lateralizing signs. SKIN: Herpetic lesions on the lips PSYCH; Flat affect Assessment & Plan Assessment/Plan (1) Sepsis: (2) Respiratory failure: (3) Acute kidney injury superimposed on chronic kidney disease: PLAN: Plan Patient is a 78-year-old female sent from PCPs office with progressive generalized weakness and shortness of breath and assessment of sepsis secondary to pneumonia was made admitted to a monitored bed for further management 1. Sepsis ? Secondary to pneumonia with streptococcal pneumonia with bacteremia as well as acute cystitis 2. Pneumonia - secondary to streptococcal pneumonia, Blood and sputum cultures sent. Patient placed on Rocephin and Zithromax switched to vancomycin and Zosyn. Blood cultures and urine antigen both positive for streptococcal pneumonia ? 05/11/2024; Zosyn and vancomycin discontinued the day prior patient placed on meropenem in view of her ESBL E. coli 3. Acute cystitis with ESBL E. coli ?Zosyn discontinued started on meropenem 4. Lung mass ?CT chest showed a left hilar mass and left-sided mediastinal lymphadenopathy with narrowing of the left upper lobe bronchus causing collapse of the left upper lobe and lingula segment of the left lower lobe with mild loss versus consolidation in the posterior medial segment of the right lower lobe and shift of the heart and mediastinal structures towards the left of the midline. Consult was placed to pulmonary medicine 5. Acute hypoxic respiratory failure due to pneumonia and left hilar mass with collapse of the left upper lobe ? Patient was initially managed on noninvasive ventilation with BiPAP has since been weaned off to nasal cannula 6. Chronic congestive heart failure with preserved ejection fraction ? Echo demonstrated EF of 65% 7.Acute kidney injury ? Superimposed on chronic kidney disease stage IIIa. Monitoring with daily BMPs kidney function improving 8. Bilateral lower extremity swelling ? Venous duplex obtained did show bilateral below-knee DVT in the superficial cephalic DVT to the right upper extremity. Patient currently not a candidate for anticoagulation given her severe thrombocytopenia 9. Paroxysmal A-fib with RVR ? Patient was managed with amiodarone did develop bradycardia amiodarone subsequently discontinued. Patient not a candidate for systemic anticoagulation given her severe thrombocytopenia 10. Elevated troponin ? Secondary to demand ischemia patient presentation not consistent with acute coronary syndrome 11. Chronic thrombocytopenia patient treated with avatrombopag 20 mg daily. Subsequently monitoring with daily CBC with differential ? 05/11/2024; consult placed to Dr. Kim patient's oncologist per her request Time spent in the patient's overall evaluation,decision-making process, review of diagnostic data, adjustment of management, discussion with other providers, nursing nursing and ancillary staff involved in patient's care documentation, 50. Minutes Charges/Coding Visit Charges Inpatient E&M: 97335 [facility] Hosp L3
[2024-05-11 08:14] LABS: Eosinophil 1 % (0-5); Lymphocyte 3 % (19-41); Metamyelocyte 10 % (0-1); Monocyte 2 % (0-10); Myelocyte 4 % (0-0); Neutrophil-Band 5 % (0-5); Neutrophil-Segmented 75 % (47-70); Platelet Estimate MKD DEC (ADEQ); Platelet Morphology LARGE; Total Cells Counted 100 (MANUAL DIFF)
[2024-05-11 08:15] LABS: Differential Indicated MANUAL DIFF; Red Cell Morphology NORM C+C NORMAL (NORM C&C)
[2024-05-11 08:16] LABS: Absolute Lymphocyte Count 0.87 X10^3/uL (0.83-4.51); Absolute Neutrophil Count 23.2 X10^3/uL (2.0-7.7); Scan Smear per Review Criteria MANUAL DIFF
[2024-05-11] MEDS: [UNRECOGNIZED DRUG - OTHER] PO (09:56)
[2024-05-11] MEDS: 0.9% Saline Lock 10 ML Syringe IV ×4 (09:56→20:36)
[2024-05-11] MEDS: Lactobacillis Acidophilus 1 CAP PO ×2 (09:56→20:36)
[2024-05-11] MEDS: guaiFENesin 1,200 MG Tablet 1200 MG PO ×2 (09:56→20:36)
[2024-05-11] MEDS: Furosemide 40 MG/4 ML Vial IV (12:10)
[2024-05-11] MEDS: Meropenem 1 GM in 0.9% Normal Saline (100mL MB+) 100 ML IV ×2 (12:14→20:36)
[2024-05-11 13:37] LABS: Pathologist Review Reviewed
[2024-05-11 13:56] LABS: Pathologist Review Reviewed
[2024-05-11] MEDS: NYSTATIN 500,000 UNIT/5 ML UDC 500000 UNIT PO ×3 (15:02→20:37)
[2024-05-11] MEDS: Acyclovir 5% Tube 1 APPLIC TOPICAL ×3 (15:02→20:36)
[2024-05-11] MEDS: Saliva Substitute 237 ML BOTTLE 15 ML MUCOUS MEM (20:36)
[2024-05-12] VITALS (11 sets, daily range): BP systolic 132–162; BP diastolic 76–86; PULSE 66–82; RESP 12–22; TEMP 36.3–36.8; O2SAT 92–95; BMI 34.7
[2024-05-12] MEDS: Acyclovir 5% Tube 1 APPLIC TOPICAL ×5 (05:10→21:20)
[2024-05-12 06:47] LABS: Absolute Lymphocyte Count 1.77 X10^3/uL (0.83-4.51); Basophil# 0.13 X10^3/uL; Basophil% 0.5 % (0-1); Eosinophil# 0.38 X10^3/uL; Eosinophils% 1.5 % (0-5); Hematocrit 42.3 % (37-47); Hemoglobin 13.3 g/dL (12.0-15.0); Lymphocyte # 1.77 X10^3/ul (0.83-4.51); Mean Corp Hgb Conc 31.4 g/dL (32-36); Mean Corpuscular Hgb 24.4 pg (27.0-32.0); Mean Corpuscular Volume 77.8 fL (81-99); Monocyte# 1.12 X10^3/uL; Monocyte% 4.4 % (0-10); NRBC Flagged by Analyzer 1.1 % (0-5); Neutrophil # 17.02 X10^3/uL (2.7-7.7); Neutrophil % 67.7 % (47-70); POSITIVE COUNT YES; POSITIVE MORPHOLOGY YES; RBC Distribution Width CV 23.1 % (11.6-14.6); RBC Distribution Width SD 61.6 fl (35.1-43.9); Red Blood Count 5.44 M/mm3 (4.2-5.4); White Blood Count 25.2 K/mm3 (4.4-11.0)
[2024-05-12 07:00] LABS: Differential Indicated SCAN CRITERIA MET; Platelet Count 23 K/mm3 (150-450)
[2024-05-12 07:17] LABS: ALB/GLOB Ratio 0.3 RATIO (0.9-2.4); AST(SGOT) 22 U/L (15-37); Alanine Aminotransfer ALT/SGPT 7 U/L (13-56); Albumin, Serum 1.5 g/dL (3.2-5.0); Alkaline Phosphatase 188 U/L (45-117); Anion Gap 7 (5-15); BUN 28 mg/dL (7-18); BUN/Creat Ratio 28.2 RATIO (10-20); Calcium,Total 7.9 mg/dL (8.5-10.1); Chloride 109 mmol/L (98-107); Creatinine, Serum 0.99 mg/dL (0.55-1.02); EST Glomerular Filtration Rate 58 mL/min (>60); Est Glom Filt Rate - Afr Amer 70 mL/min (>60); Globulin 4.6 g/dL (2.2-4.2); Glucose 111 mg/dL (74-106); Potassium 3.6 mmol/L (3.5-5.1); Protein, Total 6.1 g/dL (6.4-8.2); Sodium Level 139 mmol/L (136-145)
[2024-05-12] MEDS: Ipratropium/Albuterol Sulfate 3 ML AMPUL.NEB INHALATION ×3 (07:57→19:21)
[2024-05-12] MEDS: Furosemide 40 MG/4 ML Vial IV (09:17)
[2024-05-12] MEDS: [UNRECOGNIZED DRUG - OTHER] PO (09:17)
[2024-05-12] MEDS: Lactobacillis Acidophilus 1 CAP PO ×2 (09:17→21:19)
[2024-05-12] MEDS: Meropenem 1 GM in 0.9% Normal Saline (100mL MB+) 100 ML IV ×3 (09:18→21:24)
[2024-05-12] MEDS: guaiFENesin 1,200 MG Tablet 1200 MG PO ×2 (09:19→21:20)
[2024-05-12] MEDS: NYSTATIN 500,000 UNIT/5 ML UDC 500000 UNIT PO ×4 (09:19→21:19)
[2024-05-12] MEDS: 0.9% Saline Lock 10 ML Syringe IV (09:20)
--- NOTE | 2024-05-12 09:39 | PCM.PN.HOSP ---
Reason for Visit Reason for Visit: Diagnoses Sepsis, unspecified organism (05/04/24) Pneumonia, unspecified organism (05/04/24) Respiratory failure, unspecified, unspecified whether with hypoxia or hypercapnia (05/04/24) Acute kidney failure, unspecified (05/04/24) Chronic kidney disease, unspecified (05/04/24) Severe sepsis with septic shock (05/04/24) Subjective Subjective Patient seen has significantly flat affect. WBC count trending down platelet count remains relatively stable at 23K Objective Data Objective Data Vital Signs: Vital Signs Temp Pulse Resp BP Pulse Ox O2 Del Method O2 Flow Rate 97.8 F 66 16 148/86 H 93 Room Air 2 05/12/24 08:31 05/12/24 08:31 05/12/24 08:36 05/12/24 08:31 05/12/24 08:36 05/12/24 08:36 05/12/24 07:57 FiO2 35 05/12/24 01:57 Oxygen Flow Rate (L/min) 2 Oxygen Delivery Method Room Air Weight: 94.5 kg Body Mass Index (BMI) 34.7 Intake & Output: Intake and Output for Last 24 Hours 05/10/24 05/11/24 05/12/24 23:59 23:59 23:59 Intake Total 490 / 890 1880 / 1880 Balance 490 / 890 1880 / 1880 Lab / Micro Data 05/12/24 06:03 05/12/24 06:03 Labs: Laboratory Results - last 24 hr 05/10/24 05:43: Diff Path Review Reviewed 05/11/24 06:16: Diff Path Review Reviewed 05/12/24 06:03: WBC 25.2 H, RBC 5.44 H, Hgb 13.3, Hct 42.3, MCV 77.8 L, MCH 24.4 L, MCHC 31.4 L, RDW Std Deviation 61.6 H, RDW Coeff of Joya 23.1 H, Plt Count 23 L*, Immature Gran % (Auto) 18.900 H, Neut % (Auto) 67.7, Lymph % (Auto) 7.0 L, [place] % (Auto) 4.4, Eos % (Auto) 1.5, Baso % (Auto) 0.5, Absolute Neuts (auto) 17.0 H, Absolute Lymphs (auto) 1.77, Nucleated RBC % 1.1, Differential Comment , Diff Path Review October, Sodium 139, Potassium 3.6, Chloride 109 H, Carbon Dioxide 23.0, Anion Gap 7, BUN 28 H, Creatinine 0.99, Estim Creat Clear Calc 53.90, Est GFR (MDRD) Af Amer 70, Est GFR (MDRD) Non-Af 58 L, BUN/Creatinine Ratio 28.2 H, Glucose 111 H, Calcium 7.9 L, Total Bilirubin 1.10 H, AST 22, ALT 7 L, Alkaline Phosphatase 188 H, Total Protein 6.1 L, Albumin 1.5 L, Globulin 4.6 H, Albumin/Globulin Ratio 0.3 L Micro: Microbiology 05/08/24 09:45 Sputum, Expectorated/Coughed Gram Stain - Final 05/08/24 09:45 Sputum, Expectorated/Coughed Respiratory Culture - Final Presumptive C albicans 05/07/24 01:05 Sputum, Expectorated/Coughed Gram Stain - Final 05/07/24 01:05 Sputum, Expectorated/Coughed Respiratory Culture - Final Ericka albicans 05/06/24 21:36 Urine, Random Urine Culture - Final Presumptive E. coli 05/04/24 11:15 Blood Culture (Wb) - Anticubital Left Bacteria Detection (PCR) - Final Streptococcus pneumo 05/04/24 11:15 Blood Culture (Wb) - Anticubital Left Blood Culture - Final Streptococcus pneumoniae 05/05/24 18:15 Urine, Catheterized Urine Culture - Final ESBL Escherichia coli 05/07/24 07:27 Stool Enteric Bacteriology - Final 05/05/24 17:26 Mucosa - Nose Respiratory Panel (PCR) - Final 05/05/24 17:30 Nasal Secretion MRSA (PCR) - Final 05/05/24 18:15 Urine, Clean Catch Legionella Antigen - Final 05/05/24 18:15 Urine, Clean Catch Streptococcus pneumoniae Antigen (M - Final Streptococcus pneumonia Ag 05/04/24 11:45 Mucosa - Nose SARS-CoV-2, Influenza & RSV (PCR) - Final Physical Exam Narrative GENERAL: cooperative HEENT: Atraumatic; normocephalic EYES; Anicteric, Normal Conjunctiva NECK; supple, normal thyroid, RESPIRATORY: Diminished to auscultation CARDIOVASCULAR: Regular S1 S2, GI: soft, normoactive bowel sounds, : No Renal angle tenderness; EXTREMITIES: No edema, no clubbing, MUSCULOSKELETAL: no muscle wasting NEURO: Awake; no lateralizing signs. SKIN: Herpetic lesions on the lips PSYCH; Flat affect Assessment & Plan Assessment/Plan (1) Sepsis: (2) Respiratory failure: (3) Acute kidney injury superimposed on chronic kidney disease: PLAN: Plan Patient is a 78-year-old female sent from PCPs office with progressive generalized weakness and shortness of breath and assessment of sepsis secondary to pneumonia was made admitted to a monitored bed for further management 1. Sepsis ? Secondary to pneumonia with streptococcal pneumonia with bacteremia as well as acute cystitis 2. Pneumonia - secondary to streptococcal pneumonia, Blood and sputum cultures sent. Patient placed on Rocephin and Zithromax switched to vancomycin and Zosyn. Blood cultures and urine antigen both positive for streptococcal pneumonia ? 05/11/2024; Zosyn and vancomycin discontinued the day prior patient placed on meropenem in view of her ESBL E. coli ? 05/12/2024 patient WBC count trending down 3. Acute cystitis with ESBL E. coli ?Zosyn discontinued started on meropenem 4. Lung mass ?CT chest showed a left hilar mass and left-sided mediastinal lymphadenopathy with narrowing of the left upper lobe bronchus causing collapse of the left upper lobe and lingula segment of the left lower lobe with mild loss versus consolidation in the posterior medial segment of the right lower lobe and shift of the heart and mediastinal structures towards the left of the midline. Consult was placed to pulmonary medicine 5. Acute hypoxic respiratory failure due to pneumonia and left hilar mass with collapse of the left upper lobe ? Patient was initially managed on noninvasive ventilation with BiPAP has since been weaned off to nasal cannula 6. Chronic congestive heart failure with preserved ejection fraction ? Echo demonstrated EF of 65% 7.Acute kidney injury ? Superimposed on chronic kidney disease stage IIIa. Monitoring with daily BMPs kidney function improving 8. Bilateral lower extremity swelling ? Venous duplex obtained did show bilateral below-knee DVT in the superficial cephalic DVT to the right upper extremity. Patient currently not a candidate for anticoagulation given her severe thrombocytopenia 9. Paroxysmal A-fib with RVR ? Patient was managed with amiodarone did develop bradycardia amiodarone subsequently discontinued. Patient not a candidate for systemic anticoagulation given her severe thrombocytopenia 10. Elevated troponin ? Secondary to demand ischemia patient presentation not consistent with acute coronary syndrome 11. Chronic thrombocytopenia patient treated with avatrombopag 20 mg daily. Subsequently monitoring with daily CBC with differential ? 05/11/2024; consult placed to Dr. Kim patient's oncologist per her request ? 05/12/2024 did explain to patient about Dr. Kim not taking consult in the hospital patient will follow-up with Dr. Kim as outpatient. Platelet count up to 23K Time spent in the patient's overall evaluation,decision-making process, review of diagnostic data, adjustment of management, discussion with other providers, nursing nursing and ancillary staff involved in patient's care documentation, 36 Minutes Charges/Coding Visit Charges Inpatient E&M: 48010 Subs Hosp L2
[2024-05-12] MEDS: BMX LIQUID 180 ML 15 ML PO (21:21)
[2024-05-13] VITALS (14 sets, daily range): BP systolic 126–149; BP diastolic 78–83; PULSE 71–88; RESP 12–20; TEMP 36.5–36.9; O2SAT 89–96; BMI 34.8
[2024-05-13] MEDS: Meropenem 1 GM in 0.9% Normal Saline (100mL MB+) 100 ML IV ×3 (05:03→21:05)
[2024-05-13] MEDS: Acyclovir 5% Tube 1 APPLIC TOPICAL ×5 (05:03→21:04)
[2024-05-13 07:34] LABS: Hematocrit 41.7 % (37-47); Hemoglobin 13.3 g/dL (12.0-15.0); Mean Corp Hgb Conc 31.9 g/dL (32-36); Mean Corpuscular Volume 78.2 fL (81-99); POSITIVE COUNT YES; POSITIVE MORPHOLOGY YES; Platelet Count 30 K/mm3 (150-450); RBC Distribution Width CV 23.1 % (11.6-14.6); RBC Distribution Width SD 61.1 fl (35.1-43.9); Red Blood Count 5.33 M/mm3 (4.2-5.4); White Blood Count 22.8 K/mm3 (4.4-11.0)
[2024-05-13 07:36] LABS: Differential Indicated MANUAL DIFF
[2024-05-13] MEDS: Ipratropium/Albuterol Sulfate 3 ML AMPUL.NEB INHALATION ×4 (07:39→19:36)
[2024-05-13 08:18] LABS: ALB/GLOB Ratio 0.3 RATIO (0.9-2.4); AST(SGOT) 19 U/L (15-37); Alanine Aminotransfer ALT/SGPT 7 U/L (13-56); Albumin, Serum 1.5 g/dL (3.2-5.0); Alkaline Phosphatase 161 U/L (45-117); Anion Gap 5 (5-15); BUN 22 mg/dL (7-18); BUN/Creat Ratio 22.4 RATIO (10-20); Calcium,Total 8.1 mg/dL (8.5-10.1); Chloride 110 mmol/L (98-107); Creatinine, Serum 0.98 mg/dL (0.55-1.02); EST Glomerular Filtration Rate 58 mL/min (>60); Est Glom Filt Rate - Afr Amer 71 mL/min (>60); Estimated Creatinine Clearance 54.45 ml/min; Globulin 4.5 g/dL (2.2-4.2); Glucose 111 mg/dL (74-106); Potassium 3.6 mmol/L (3.5-5.1); Sodium Level 139 mmol/L (136-145)
[2024-05-13 08:38] LABS: Lymphocyte 6 % (19-41); Metamyelocyte 2 % (0-1); Monocyte 3 % (0-10); Myelocyte 6 % (0-0); Neutrophil-Band 2 % (0-5); Neutrophil-Segmented 81 % (47-70); Nucleated Red Bld Cells,Manual 1 % (0-5); Total Cells Counted 100 (MANUAL DIFF)
[2024-05-13 08:39] LABS: Anisocytosis 2+; Hypochromasia 1+; Platelet Estimate MKD DEC (ADEQ)
[2024-05-13 08:40] LABS: Absolute Lymphocyte Count 1.36 X10^3/uL (0.83-4.51); Absolute Neutrophil Count 18.9 X10^3/uL (2.0-7.7)
[2024-05-13] MEDS: Lactobacillis Acidophilus 1 CAP PO ×2 (10:31→21:05)
[2024-05-13] MEDS: guaiFENesin 1,200 MG Tablet 1200 MG PO ×2 (10:32→21:05)
[2024-05-13] MEDS: [UNRECOGNIZED DRUG - OTHER] PO (10:32)
[2024-05-13] MEDS: NYSTATIN 500,000 UNIT/5 ML UDC 500000 UNIT PO ×4 (10:32→21:05)
--- NOTE | 2024-05-13 10:36 | PN.HOSP_ITS ---
Reason for Visit Reason for Visit: Diagnoses Sepsis, unspecified organism (05/04/24) Pneumonia, unspecified organism (05/04/24) Respiratory failure, unspecified, unspecified whether with hypoxia or hypercapnia (05/04/24) Acute kidney failure, unspecified (05/04/24) Chronic kidney disease, unspecified (05/04/24) Severe sepsis with septic shock (05/04/24) Subjective Subjective Patient seen improving clinically. WBC count down to 22.8, platelet count up to 30K. Objective Data Objective Data Vital Signs: Vital Signs Temp Pulse Resp BP Pulse Ox O2 Del Method O2 Flow Rate 98.1 F 72 18 149/83 H 89 Nasal Cannula 3.5 05/13/24 02:30 05/13/24 02:30 05/13/24 02:30 05/13/24 02:30 05/13/24 09:38 05/13/24 04:36 05/13/24 09:38 FiO2 35 05/13/24 01:53 Oxygen Flow Rate (L/min) 3.5 Oxygen Delivery Method Nasal Cannula Weight: 94.9 kg Body Mass Index (BMI) 34.8 Intake & Output: Intake and Output for Last 24 Hours 05/11/24 05/12/24 05/13/24 23:59 23:59 23:59 Intake Total 1880 / 1880 740 / 740 240 / 240 Balance 1880 / 1880 740 / 740 240 / 240 Lab / Micro Data 05/13/24 07:12 05/13/24 07:12 Labs: Laboratory Results - last 24 hr 05/13/24 07:12: WBC 22.8 H, RBC 5.33, Hgb 13.3, Hct 41.7, MCV 78.2 L, MCH 25.0 L , MCHC 31.9 L, RDW Std Deviation 61.1 H, RDW Coeff of Joya 23.1 H, Plt Count 30 L*, Neut % (Auto) Not Reportable, Absolute Neuts (auto) 18.9 H, Absolute Lymphs (auto) 1.36, Total Counted 100, Neutrophils % (Manual) 81 H, Band Neutrophils % 2, Lymphocytes % (Manual) 6 L, Monocytes % (Manual) 3, Metamyelocytes % 2 H, M yelocytes % 6 H, Nucleated RBCs/100 WBC 1, Diff Path Review October, Platelet Estimate MKD DEC, Hypochromasia 1+, Anisocytosis 2+, Sodium 139, Potassium 3.6, Chloride 110 H, Carbon Dioxide 25.0, Anion Gap 5, BUN 22 H, Creatinine 0.98, Estim Creat Clear Calc 54.45, Est GFR (MDRD) Af Amer 71, Est GFR (MDRD) Non-Af 58 L, BUN/Creatinine Ratio 22.4 H, Glucose 111 H, Calcium 8.1 L, Total Bilirubin 1.00, AST 19, ALT 7 L, Alkaline Phosphatase 161 H, Total Protein 6.0 L, Albumin 1.5 L, Globulin 4.5 H, Albumin/Globulin Ratio 0.3 L Micro: Microbiology 05/08/24 09:45 Sputum, Expectorated/Coughed Gram Stain - Final 05/08/24 09:45 Sputum, Expectorated/Coughed Respiratory Culture - Final Presumptive C albicans 05/07/24 01:05 Sputum, Expectorated/Coughed Gram Stain - Final 05/07/24 01:05 Sputum, Expectorated/Coughed Respiratory Culture - Final Ericka albicans 05/06/24 21:36 Urine, Random Urine Culture - Final Presumptive E. coli 05/04/24 11:15 Blood Culture (Wb) - Anticubital Left Bacteria Detection (PCR) - Final Streptococcus pneumo 05/04/24 11:15 Blood Culture (Wb) - Anticubital Left Blood Culture - Final Streptococcus pneumoniae 05/05/24 18:15 Urine, Catheterized Urine Culture - Final ESBL Escherichia coli 05/07/24 07:27 Stool Enteric Bacteriology - Final 05/05/24 17:26 Mucosa - Nose Respiratory Panel (PCR) - Final 05/05/24 17:30 Nasal Secretion MRSA (PCR) - Final 05/05/24 18:15 Urine, Clean Catch Legionella Antigen - Final 05/05/24 18:15 Urine, Clean Catch Streptococcus pneumoniae Antigen (M - Final Streptococcus pneumonia Ag 05/04/24 11:45 Mucosa - Nose SARS-CoV-2, Influenza & RSV (PCR) - Final Physical Exam Narrative GENERAL: cooperative HEENT: Atraumatic; normocephalic EYES; Anicteric, Normal Conjunctiva NECK; supple, normal thyroid, RESPIRATORY: Diminished to auscultation CARDIOVASCULAR: Regular S1 S2, GI: soft, normoactive bowel sounds, : No Renal angle tenderness; EXTREMITIES: No edema, no clubbing, MUSCULOSKELETAL: no muscle wasting NEURO: Awake; no lateralizing signs. SKIN: Herpetic lesions on the lips PSYCH; Flat affect Assessment & Plan Assessment/Plan (1) Sepsis: (2) Respiratory failure: (3) Acute kidney injury superimposed on chronic kidney disease: PLAN: Plan Patient is a 78-year-old female sent from PCPs office with progressive generalized weakness and shortness of breath and assessment of sepsis secondary to pneumonia was made admitted to a monitored bed for further management 1. Sepsis ? Secondary to pneumonia with streptococcal pneumonia with bacteremia as well as acute cystitis ? 05/13/2024; patient WBC count trending in the right direction. Case was discussed with Dr. Blanco regarding antibiotic therapy. 2. Pneumonia - secondary to streptococcal pneumonia, Blood and sputum cultures sent. Patient placed on Rocephin and Zithromax switched to vancomycin and Zosyn. Blood cultures and urine antigen both positive for streptococcal pneumonia ? 05/11/2024; Zosyn and vancomycin discontinued the day prior patient placed on meropenem in view of her ESBL E. coli ? 05/12/2024 patient WBC count trending down 3. Acute cystitis with ESBL E. coli ?Zosyn discontinued started on meropenem 4. Lung mass ?CT chest showed a left hilar mass and left-sided mediastinal lymphadenopathy with narrowing of the left upper lobe bronchus causing collapse of the left upper lobe and lingula segment of the left lower lobe with mild loss versus consolidation in the posterior medial segment of the right lower lobe and shift of the heart and mediastinal structures towards the left of the midline. Consult was placed to pulmonary medicine 5. Acute hypoxic respiratory failure due to pneumonia and left hilar mass with collapse of the left upper lobe ? Patient was initially managed on noninvasive ventilation with BiPAP has since been weaned off to nasal cannula 6. Chronic congestive heart failure with preserved ejection fraction ? Echo demonstrated EF of 65% 7.Acute kidney injury ? Superimposed on chronic kidney disease stage IIIa. Monitoring with daily BMPs kidney function improving 8. Bilateral lower extremity swelling ? Venous duplex obtained did show bilateral below-knee DVT in the superficial cephalic DVT to the right upper extremity. Patient currently not a candidate for anticoagulation given her severe thrombocytopenia 9. Paroxysmal A-fib with RVR ? Patient was managed with amiodarone did develop bradycardia amiodarone subsequently discontinued. Patient not a candidate for systemic anticoagulation given her severe thrombocytopenia 10. Elevated troponin ? Secondary to demand ischemia patient presentation not consistent with acute coronary syndrome 11. Chronic thrombocytopenia patient treated with avatrombopag 20 mg daily. Subsequently monitoring with daily CBC with differential ? 05/11/2024; consult placed to Dr. Kim patient's oncologist per her request ? 05/12/2024 did explain to patient about Dr. Kim not taking consult in the hospital patient will follow-up with Dr. Kim as outpatient. Platelet count up to 23K ? 05/13/2024; platelet count up to 30K. Time spent in the patient's overall evaluation,decision-making process, review of diagnostic data, adjustment of management, discussion with other providers, nursing nursing and ancillary staff involved in patient's care documentation, 36 Minutes Charges/Coding Visit Charges Inpatient E&M: 39018 Subs Hosp L2
[2024-05-13] MEDS: 0.9% Saline Lock 10 ML Syringe IV (11:02)
[2024-05-13] MEDS: Furosemide 40 MG/4 ML Vial IV (11:02)
--- NOTE | 2024-05-13 11:50 | US_ITS ---
INDICATION: Postmenopausal bleeding EXAMINATION: Ultrasound US Transvaginal Non-OB TECHNIQUE: Transvaginal (for optimal evaluation of the adnexa) pelvic ultrasound was performed. Grayscale, spectral waveform, and color flow Doppler evaluation of the adnexa. COMPARISON: CT abdomen and pelvis 01/04/2024 FINDINGS: UTERUS: Anteverted. The uterus measures 8.7 x 5.9 x 4.0 cm. Multiple fibroids, largest measures up to 2.7 cm. The endometrial stripe measures 9 mm in AP diameter which is thickened for a postmenopausal patient. Significant fluid in the endometrial canal with hypoechoic lesion measuring 7 x 8 x 8 mm. RIGHT OVARY: Not visualized due to overlying bowel gas. LEFT OVARY: Not visualized due to overlying bowel gas. FREE FLUID: Small amount in the cul-de-sac. US/Transvaginal Non- IMPRESSION: Fibroid uterus consistent with prior CT findings. Abnormal endometrium, hyperplasia versus neoplasia with possible polyp. Recommend gynecological consultation. Electronically Signed: Garo Lau MD at 22:23 EST ,
[2024-05-13 11:59] LABS: Pathologist Review Reviewed
[2024-05-13 12:03] LABS: Pathologist Review Reviewed
--- NOTE | 2024-05-13 15:03 | PCM.PN.ID ---
Physical Exam Narrative Feeling about the same, still some cough/dyspnea/fatigue. No fever. No urinary symptoms at any point of this. Const alert and no apparent distress Resp Auscultation: rhonchi Cardio regular rate and regular rhythm GI soft to palpation, non-tender and non-distended Skin no rashes or lesions noted ID ID: Route of nutrition/ use of supplements: [] Nutritional Intake: [] IV Site: [] Ordonez Catheter: [] Assessment & Plan Assessment/Plan (1) Sepsis: PLAN: Bacteremia with strep pneumo. S pneumo UAg (+). L hilar mass and adenopathy seen on CT. Changed to meropenem 05/10/24. Ucx with small growth ESBL ecoli 05/05 but repeat 05/06 was neg. Denies any urinary symptoms. Wbc improving over past few days. Would consider repeat chest CT this admit given mass and possible post-obstructive pneumonia. Will follow, d/w Dr. Jurado (2) Acute kidney injury superimposed on chronic kidney disease: (3) Pneumonia:
[2024-05-14] VITALS (10 sets, daily range): BP systolic 132–152; BP diastolic 76–87; PULSE 74–83; RESP 12–20; TEMP 36.3–36.7; O2SAT 91–96; BMI 34.9
[2024-05-14] MEDS: Meropenem 1 GM in 0.9% Normal Saline (100mL MB+) 100 ML IV ×3 (05:04→20:14)
[2024-05-14] MEDS: Acyclovir 5% Tube 1 APPLIC TOPICAL ×4 (05:04→20:14)
[2024-05-14 07:12] LABS: Hematocrit 40.6 % (37-47); Hemoglobin 12.7 g/dL (12.0-15.0); Mean Corp Hgb Conc 31.3 g/dL (32-36); Mean Corpuscular Volume 79.9 fL (81-99); POSITIVE COUNT YES; POSITIVE MORPHOLOGY YES; RBC Distribution Width CV 22.9 % (11.6-14.6); RBC Distribution Width SD 61.9 fl (35.1-43.9); Red Blood Count 5.08 M/mm3 (4.2-5.4); White Blood Count 20.6 K/mm3 (4.4-11.0)
[2024-05-14] MEDS: Ipratropium/Albuterol Sulfate 3 ML AMPUL.NEB INHALATION ×4 (07:13→19:50)
[2024-05-14 07:20] LABS: Differential Indicated MANUAL DIFF; Platelet Count 32 K/mm3 (150-450)
[2024-05-14 07:40] LABS: ALB/GLOB Ratio 0.3 RATIO (0.9-2.4); AST(SGOT) 22 U/L (15-37); Alanine Aminotransfer ALT/SGPT 10 U/L (13-56); Albumin, Serum 1.4 g/dL (3.2-5.0); Alkaline Phosphatase 151 U/L (45-117); Anion Gap 4 (5-15); BUN 19 mg/dL (7-18); BUN/Creat Ratio 21.3 RATIO (10-20); Chloride 107 mmol/L (98-107); Creatinine, Serum 0.89 mg/dL (0.55-1.02); EST Glomerular Filtration Rate 65 mL/min (>60); Est Glom Filt Rate - Afr Amer 79 mL/min (>60); Estimated Creatinine Clearance 60.22 ml/min; Globulin 4.7 g/dL (2.2-4.2); Glucose 99 mg/dL (74-106); Potassium 3.9 mmol/L (3.5-5.1); Protein, Total 6.1 g/dL (6.4-8.2); Sodium Level 137 mmol/L (136-145)
[2024-05-14] MEDS: [UNRECOGNIZED DRUG - OTHER] PO (08:33)
[2024-05-14] MEDS: Lactobacillis Acidophilus 1 CAP PO ×2 (08:34→20:14)
[2024-05-14] MEDS: guaiFENesin 1,200 MG Tablet 1200 MG PO ×2 (08:34→20:14)
[2024-05-14] MEDS: NYSTATIN 500,000 UNIT/5 ML UDC 500000 UNIT PO ×3 (08:34→20:14)
[2024-05-14] MEDS: Furosemide 40 MG/4 ML Vial IV (08:34)
--- NOTE | 2024-05-14 08:34 | PN.HOSP_ITS ---
Reason for Visit Reason for Visit: Diagnoses Sepsis, unspecified organism (05/04/24) Pneumonia, unspecified organism (05/04/24) Respiratory failure, unspecified, unspecified whether with hypoxia or hypercapnia (05/04/24) Acute kidney failure, unspecified (05/04/24) Chronic kidney disease, unspecified (05/04/24) Severe sepsis with septic shock (05/04/24) Subjective Subjective Patient did develop bleeding for vagina the day prior. Ordered transvaginal ultrasound which demonstrated Fibroid uterus consistent with prior CT findings. Abnormal endometrium, hyperplasia versus neoplasia with possible polyp. Objective Data Objective Data Vital Signs: Vital Signs Temp Pulse Resp BP Pulse Ox O2 Del Method O2 Flow Rate 98.0 F 78 14 142/87 H 91 Nasal Cannula 3.5 05/14/24 08:28 05/14/24 08:28 05/14/24 08:28 05/14/24 08:28 05/14/24 08:28 05/14/24 08:28 05/14/24 08:28 FiO2 35 05/14/24 03:25 Oxygen Flow Rate (L/min) 3.5 Oxygen Delivery Method Nasal Cannula Weight: 95.3 kg Body Mass Index (BMI) 34.9 Intake & Output: Intake and Output for Last 24 Hours 05/12/24 05/13/24 05/14/24 23:59 23:59 23:59 Intake Total 740 / 740 860 / 860 120 / 120 Balance 740 / 740 860 / 860 120 / 120 Lab / Micro Data 05/14/24 06:11 05/14/24 06:11 Labs: Laboratory Results - last 24 hr 05/12/24 06:03: Diff Path Review Reviewed 05/13/24 07:12: Absolute Neuts (auto) 18.9 H, Absolute Lymphs (auto) 1.36, Total Counted 100, Neutrophils % (Manual) 81 H, Band Neutrophils % 2, Lymphocytes % (Manual) 6 L, Monocytes % (Manual) 3, Metamyelocytes % 2 H, Myelocytes % 6 H, Nucleated RBCs/100 WBC 1, Diff Path Review Reviewed, Platelet Estimate MKD DEC, Hypochromasia 1+, Anisocytosis 2+ 05/14/24 06:11: WBC 20.6 H, RBC 5.08, Hgb 12.7, Hct 40.6, MCV 79.9 L, MCH 25.0 L , MCHC 31.3 L, RDW Std Deviation 61.9 H, RDW Coeff of Joya 22.9 H, Plt Count 32 L*, Neut % (Auto) Not Reportable, Sodium 137, Potassium 3.9, Chloride 107, Carbon Dioxide 26.0, Anion Gap 4 L, BUN 19 H, Creatinine 0.89, Estim Creat Clear Calc 60.22, Est GFR (MDRD) Af Amer 79, Est GFR (MDRD) Non-Af 65, BUN/Creatinine Ratio 21.3 H, Glucose 99, Calcium 8.0 L, Total Bilirubin 0.80, AST 22, ALT 10 L, Alkaline Phosphatase 151 H, Total Protein 6.1 L, Albumin 1.4 L, Globulin 4.7 H, Albumin/Globulin Ratio 0.3 L Micro: Microbiology 05/08/24 09:45 Sputum, Expectorated/Coughed Gram Stain - Final 05/08/24 09:45 Sputum, Expectorated/Coughed Respiratory Culture - Final Presumptive C albicans 05/07/24 01:05 Sputum, Expectorated/Coughed Gram Stain - Final 05/07/24 01:05 Sputum, Expectorated/Coughed Respiratory Culture - Final Ericka albicans 05/06/24 21:36 Urine, Random Urine Culture - Final Presumptive E. coli 05/04/24 11:15 Blood Culture (Wb) - Anticubital Left Bacteria Detection (PCR) - Final Streptococcus pneumo 05/04/24 11:15 Blood Culture (Wb) - Anticubital Left Blood Culture - Final Streptococcus pneumoniae 05/05/24 18:15 Urine, Catheterized Urine Culture - Final ESBL Escherichia coli 05/07/24 07:27 Stool Enteric Bacteriology - Final 05/05/24 17:26 Mucosa - Nose Respiratory Panel (PCR) - Final 05/05/24 17:30 Nasal Secretion MRSA (PCR) - Final 05/05/24 18:15 Urine, Clean Catch Legionella Antigen - Final 05/05/24 18:15 Urine, Clean Catch Streptococcus pneumoniae Antigen (M - Final Streptococcus pneumonia Ag 05/04/24 11:45 Mucosa - Nose SARS-CoV-2, Influenza & RSV (PCR) - Final Radiography Diagnostic Testing: Radiology Impression Transvaginal US 05/13/24 11:50 IMPRESSION: Fibroid uterus consistent with prior CT findings. Abnormal endometrium, hyperplasia versus neoplasia with possible polyp. Recommend gynecological consultation. Electronically Signed: Garo Lau MD at 22:23 EST , Physical Exam Narrative GENERAL: cooperative HEENT: Atraumatic; normocephalic EYES; Anicteric, Normal Conjunctiva NECK; supple, normal thyroid, RESPIRATORY: Diminished to auscultation CARDIOVASCULAR: Regular S1 S2, GI: soft, normoactive bowel sounds, : No Renal angle tenderness; EXTREMITIES: No edema, no clubbing, MUSCULOSKELETAL: no muscle wasting NEURO: Awake; no lateralizing signs. SKIN: Herpetic lesions on the lips PSYCH; Flat affect Assessment & Plan Assessment/Plan (1) Sepsis: (2) Respiratory failure: (3) Acute kidney injury superimposed on chronic kidney disease: PLAN: Plan Patient is a 78-year-old female sent from PCPs office with progressive generalized weakness and shortness of breath and assessment of sepsis secondary to pneumonia was made admitted to a monitored bed for further management 1. Sepsis ? Secondary to pneumonia with streptococcal pneumonia with bacteremia as well as acute cystitis ? 05/13/2024; patient WBC count trending in the right direction. Case was discussed with Dr. Blanco regarding antibiotic therapy. 2. Pneumonia - secondary to streptococcal pneumonia, Blood and sputum cultures sent. Patient placed on Rocephin and Zithromax switched to vancomycin and Zosyn. Blood cultures and urine antigen both positive for streptococcal pneumonia ? 05/11/2024; Zosyn and vancomycin discontinued the day prior patient placed on meropenem in view of her ESBL E. coli ? 05/12/2024 patient WBC count trending down 3. Acute cystitis with ESBL E. coli ?Zosyn discontinued started on meropenem 4. Lung mass ?CT chest showed a left hilar mass and left-sided mediastinal lymphadenopathy with narrowing of the left upper lobe bronchus causing collapse of the left upper lobe and lingula segment of the left lower lobe with mild loss versus consolidation in the posterior medial segment of the right lower lobe and shift of the heart and mediastinal structures towards the left of the midline. Consult was placed to pulmonary medicine 5. Acute hypoxic respiratory failure due to pneumonia and left hilar mass with collapse of the left upper lobe ? Patient was initially managed on noninvasive ventilation with BiPAP has since been weaned off to nasal cannula 6. Chronic congestive heart failure with preserved ejection fraction ? Echo demonstrated EF of 65% 7.Acute kidney injury ? Superimposed on chronic kidney disease stage IIIa. Monitoring with daily BMPs kidney function improving 8. Bilateral lower extremity swelling ? Venous duplex obtained did show bilateral below-knee DVT in the superficial cephalic DVT to the right upper extremity. Patient currently not a candidate for anticoagulation given her severe thrombocytopenia 9. Paroxysmal A-fib with RVR ? Patient was managed with amiodarone did develop bradycardia amiodarone subsequently discontinued. Patient not a candidate for systemic anticoagulation given her severe thrombocytopenia 10. Elevated troponin ? Secondary to demand ischemia patient presentation not consistent with acute coronary syndrome 11. Chronic thrombocytopenia patient treated with avatrombopag 20 mg daily. Subsequently monitoring with daily CBC with differential ? 05/11/2024; consult placed to Dr. Kim patient's oncologist per her request ? 05/12/2024 did explain to patient about Dr. Kim not taking consult in the hospital patient will follow-up with Dr. Kim as outpatient. Platelet count up to 23K ? 05/13/2024; platelet count up to 30K. 12. Abnormal vaginal bleeding Patient did develop bleeding for vagina the day prior. Ordered transvaginal ultrasound which demonstrated Fibroid uterus consistent with prior CT findings. Abnormal endometrium, hyperplasia versus neoplasia with possible polyp. Plan is for patient to follow-up with [facility] as outpatient Time spent in the patient's overall evaluation,decision-making process, review of diagnostic data, adjustment of management, discussion with other providers, nursing nursing and ancillary staff involved in patient's care documentation, 36 Minutes Charges/Coding Visit Charges Inpatient E&M: 40977 Subs Hosp L2
[2024-05-14 10:37] LABS: Absolute Neutrophil Count 17.9 X10^3/uL (2.0-7.7); Eosinophil 2 % (0-5); Lymphocyte 4 % (19-41); Metamyelocyte 2 % (0-1); Monocyte 2 % (0-10); Myelocyte 3 % (0-0); Neutrophil-Band 1 % (0-5); Neutrophil-Segmented 86 % (47-70); Total Cells Counted 100 (MANUAL DIFF)
[2024-05-14 10:38] LABS: Absolute Lymphocyte Count 0.82 X10^3/uL (0.83-4.51)
[2024-05-14 10:39] LABS: Atypical Lymphocyte 1+ %; Platelet Estimate MKD DEC (ADEQ)
[2024-05-14 10:40] LABS: Anisocytosis 3+; Basophilic Stippling 1+; Hypochromasia 2+; Microcytosis 1+; Polychromasia 1+; Schistocytes RARE
[2024-05-14 10:41] LABS: Target Cells RARE; Tear Drop Cell RARE
--- NOTE | 2024-05-14 13:40 | PCM.PN.ID ---
Physical Exam Narrative Feeling ok, tongue still sore, no fever Const alert and no apparent distress General Appearance: cooperative Resp Auscultation: rhonchi Cardio regular rate and regular rhythm GI soft to palpation, non-tender and non-distended Skin no rashes or lesions noted ID ID: Route of nutrition/ use of supplements: [] Nutritional Intake: [] IV Site: [] Ordonez Catheter: [] Assessment & Plan Assessment/Plan (1) Sepsis: PLAN: Bacteremia with strep pneumo. S pneumo UAg (+). L hilar mass and adenopathy seen on CT. Changed to meropenem 05/10/24. Ucx with small growth ESBL ecoli 05/05 but repeat 05/06 was neg. Denies any urinary symptoms. Wbc improving over past few days. Would consider repeat chest CT this admit given mass and possible post-obstructive pneumonia. Ok to stop meropenem 05/16. Will follow (2) Acute kidney injury superimposed on chronic kidney disease: (3) Pneumonia:
--- NOTE | 2024-05-14 14:30 | CASEMGMT ---
RN CM updated by hospitalist that patient will be here through the weekend. RN CM in to discuss needs at discharge and progress with therapy. RN CM discuss HHC with patient, patient agreeable to HHC at discharge. RN CM provided patient with HHC list to review to provide preferences. Patient voiced understanding and CM will follow-up on Friday. CM will continue to follow this patient and plan for a safe discharge.
--- NOTE | 2024-05-14 14:32 | CASEMGMT ---
Discharge Planning A list of?HH providers including quality and resource use data and consistent with the patient's preferred geographic region, medical needs, and insurance network was created in [facility] [facility].? This list was provided to the RN ANGELLA. Stacey Muro, Discharge Planning Asst.
--- NOTE | 2024-05-14 23:00 | CPS ---
Pt refused BiPAP for tonight.
[2024-05-15] VITALS (11 sets, daily range): BP systolic 140–159; BP diastolic 80–90; PULSE 77–87; RESP 18–20; TEMP 36.6–36.8; O2SAT 93–95; BMI 35.5
[2024-05-15] MEDS: Meropenem 1 GM in 0.9% Normal Saline (100mL MB+) 100 ML IV ×3 (05:09→22:09)
[2024-05-15] MEDS: Acyclovir 5% Tube 1 APPLIC TOPICAL ×4 (05:10→22:10)
[2024-05-15 06:32] LABS: Hematocrit 41.7 % (37-47); Hemoglobin 12.6 g/dL (12.0-15.0); Mean Corp Hgb Conc 30.2 g/dL (32-36); Mean Corpuscular Hgb 24.1 pg (27.0-32.0); Mean Corpuscular Volume 79.7 fL (81-99); POSITIVE COUNT YES; POSITIVE MORPHOLOGY YES; RBC Distribution Width SD 62.6 fl (35.1-43.9); Red Blood Count 5.23 M/mm3 (4.2-5.4); White Blood Count 20.9 K/mm3 (4.4-11.0)
[2024-05-15 06:45] LABS: Differential Indicated MANUAL DIFF; Platelet Count 40 K/mm3 (150-450)
[2024-05-15 07:05] LABS: ALB/GLOB Ratio 0.3 RATIO (0.9-2.4); AST(SGOT) 26 U/L (15-37); Alanine Aminotransfer ALT/SGPT 9 U/L (13-56); Albumin, Serum 1.5 g/dL (3.2-5.0); Alkaline Phosphatase 168 U/L (45-117); Anion Gap 5 (5-15); BUN 16 mg/dL (7-18); BUN/Creat Ratio 18.2 RATIO (10-20); Calcium,Total 8.2 mg/dL (8.5-10.1); Chloride 106 mmol/L (98-107); Creatinine, Serum 0.88 mg/dL (0.55-1.02); EST Glomerular Filtration Rate 66 mL/min (>60); Est Glom Filt Rate - Afr Amer 80 mL/min (>60); Estimated Creatinine Clearance 61.39 ml/min; Globulin 4.7 g/dL (2.2-4.2); Glucose 106 mg/dL (74-106); Potassium 3.6 mmol/L (3.5-5.1); Protein, Total 6.2 g/dL (6.4-8.2); Sodium Level 138 mmol/L (136-145)
[2024-05-15] MEDS: Ipratropium/Albuterol Sulfate 3 ML AMPUL.NEB INHALATION ×3 (07:06→20:35)
[2024-05-15 07:30] LABS: Lymphocyte 8 % (19-41); Metamyelocyte 2 % (0-1); Monocyte 1 % (0-10); Neutrophil-Band 1 % (0-5); Neutrophil-Segmented 88 % (47-70); Total Cells Counted 100 (MANUAL DIFF)
[2024-05-15 07:31] LABS: Anisocytosis 2+; Basophilic Stippling 1+; Hypochromasia 1+; Polychromasia 1+; Spherocyte 2+
[2024-05-15 07:33] LABS: Absolute Lymphocyte Count 1.67 X10^3/uL (0.83-4.51); Absolute Neutrophil Count 18.6 X10^3/uL (2.0-7.7)
--- NOTE | 2024-05-15 09:25 | PN.HOSP_ITS ---
Reason for Visit Reason for Visit: Diagnoses Sepsis, unspecified organism (05/04/24) Pneumonia, unspecified organism (05/04/24) Respiratory failure, unspecified, unspecified whether with hypoxia or hypercapnia (05/04/24) Acute kidney failure, unspecified (05/04/24) Chronic kidney disease, unspecified (05/04/24) Severe sepsis with septic shock (05/04/24) Subjective Subjective Patient seen platelet count up to 40K. Still complains of pain in the mouth Objective Data Objective Data Vital Signs: Vital Signs Temp Pulse Resp BP Pulse Ox O2 Del Method O2 Flow Rate 98.0 F 83 18 155/87 H 93 Nasal Cannula 3 05/15/24 05:10 05/15/24 07:07 05/15/24 07:07 05/15/24 05:10 05/15/24 07:07 05/15/24 07:07 05/15/24 07:07 FiO2 35 05/14/24 03:25 Oxygen Flow Rate (L/min) 3 Oxygen Delivery Method Nasal Cannula Weight: 96.7 kg Body Mass Index (BMI) 35.5 Intake & Output: Intake and Output for Last 24 Hours 05/13/24 05/14/24 05/15/24 23:59 23:59 23:59 Intake Total 860 / 860 1260 / 1260 180 / 180 Output Total 1650 / 1650 Balance 860 / 860 -390 / -390 180 / 180 Lab / Micro Data 05/15/24 04:50 05/15/24 04:50 Labs: Laboratory Results - last 24 hr 05/14/24 06:11: Absolute Neuts (auto) 17.9 H, Absolute Lymphs (auto) 0.82 L, Total Counted 100, Neutrophils % (Manual) 86 H, Band Neutrophils % 1, L ymphocytes % (Manual) 4 L, Monocytes % (Manual) 2, Eosinophils % (Manual) 2, M etamyelocytes % 2 H, Myelocytes % 3 H, Diff Path Review May foll, Atypical Lymphocytes 1+, Platelet Estimate MKD DEC, Polychromasia 1+, Hypochromasia 2+, Basophilic Stippling 1+, Anisocytosis 3+, Microcytosis 1+, Target Cells RARE, Tear Drop Cells RARE, Schistocytes RARE 05/15/24 04:50: WBC 20.9 H, RBC 5.23, Hgb 12.6, Hct 41.7, MCV 79.7 L, MCH 24.1 L , MCHC 30.2 L, RDW Std Deviation 62.6 H, RDW Coeff of Joya 23.0 H, Plt Count 40 L*, MPV Not Reportable, Neut % (Auto) Not Reportable, Absolute Neuts (auto) 18.6 H, Absolute Lymphs (auto) 1.67, Total Counted 100, Neutrophils % (Manual) 88 H, Band Neutrophils % 1, Lymphocytes % (Manual) 8 L, Monocytes % (Manual) 1, M etamyelocytes % 2 H, Diff Path Review October, Polychromasia 1+, Hypochromasia 1+, Basophilic Stippling 1+, Anisocytosis 2+, Spherocytes 2+ H, Sodium 138, Potassium 3.6, Chloride 106, Carbon Dioxide 28.0, Anion Gap 5, BUN 16, Creatinine 0.88, Estim Creat Clear Calc 61.39, Est GFR (MDRD) Af Amer 80, Est GFR (MDRD) Non-Af 66, BUN/Creatinine Ratio 18.2, Glucose 106, Calcium 8.2 L, Total Bilirubin 1.00, AST 26, ALT 9 L, Alkaline Phosphatase 168 H, Total Protein 6.2 L, Albumin 1.5 L, Globulin 4.7 H, Albumin/Globulin Ratio 0.3 L Micro: Microbiology 05/08/24 09:45 Sputum, Expectorated/Coughed Gram Stain - Final 05/08/24 09:45 Sputum, Expectorated/Coughed Respiratory Culture - Final Presumptive C albicans 05/07/24 01:05 Sputum, Expectorated/Coughed Gram Stain - Final 05/07/24 01:05 Sputum, Expectorated/Coughed Respiratory Culture - Final Ericka albicans 05/06/24 21:36 Urine, Random Urine Culture - Final Presumptive E. coli 05/04/24 11:15 Blood Culture (Wb) - Anticubital Left Bacteria Detection (PCR) - Final Streptococcus pneumo 05/04/24 11:15 Blood Culture (Wb) - Anticubital Left Blood Culture - Final Streptococcus pneumoniae 05/05/24 18:15 Urine, Catheterized Urine Culture - Final ESBL Escherichia coli 05/07/24 07:27 Stool Enteric Bacteriology - Final 05/05/24 17:26 Mucosa - Nose Respiratory Panel (PCR) - Final 05/05/24 17:30 Nasal Secretion MRSA (PCR) - Final 05/05/24 18:15 Urine, Clean Catch Legionella Antigen - Final 05/05/24 18:15 Urine, Clean Catch Streptococcus pneumoniae Antigen (M - Final Streptococcus pneumonia Ag 05/04/24 11:45 Mucosa - Nose SARS-CoV-2, Influenza & RSV (PCR) - Final Physical Exam Narrative GENERAL: cooperative HEENT: Atraumatic; normocephalic EYES; Anicteric, Normal Conjunctiva NECK; supple, normal thyroid, RESPIRATORY: Diminished to auscultation CARDIOVASCULAR: Regular S1 S2, GI: soft, normoactive bowel sounds, : No Renal angle tenderness; EXTREMITIES: No edema, no clubbing, MUSCULOSKELETAL: no muscle wasting NEURO: Awake; no lateralizing signs. SKIN: Herpetic lesions on the lips PSYCH; Flat affect Assessment & Plan Assessment/Plan (1) Sepsis: (2) Respiratory failure: (3) Acute kidney injury superimposed on chronic kidney disease: PLAN: Plan Patient is a 78-year-old female sent from PCPs office with progressive generalized weakness and shortness of breath and assessment of sepsis secondary to pneumonia was made admitted to a monitored bed for further management 1. Sepsis ? Secondary to pneumonia with streptococcal pneumonia with bacteremia as well as acute cystitis ? 05/13/2024; patient WBC count trending in the right direction. Case was discussed with Dr. Blanco regarding antibiotic therapy. 2. Pneumonia - secondary to streptococcal pneumonia, Blood and sputum cultures sent. Patient placed on Rocephin and Zithromax switched to vancomycin and Zosyn. Blood cultures and urine antigen both positive for streptococcal pneumonia ? 05/11/2024; Zosyn and vancomycin discontinued the day prior patient placed on meropenem in view of her ESBL E. coli ? 05/12/2024 patient WBC count trending down ? 05/15/2024; WBC count at 20K. Plan is to discontinue meropenem on 05/16/2024 3. Acute cystitis with ESBL E. coli ?Zosyn discontinued started on meropenem 4. Lung mass ?CT chest showed a left hilar mass and left-sided mediastinal lymphadenopathy with narrowing of the left upper lobe bronchus causing collapse of the left upper lobe and lingula segment of the left lower lobe with mild loss versus consolidation in the posterior medial segment of the right lower lobe and shift of the heart and mediastinal structures towards the left of the midline. Consult was placed to pulmonary medicine 5. Acute hypoxic respiratory failure due to pneumonia and left hilar mass with collapse of the left upper lobe ? Patient was initially managed on noninvasive ventilation with BiPAP has since been weaned off to nasal cannula 6. Chronic congestive heart failure with preserved ejection fraction ? Echo demonstrated EF of 65% 7.Acute kidney injury ? Superimposed on chronic kidney disease stage IIIa. Monitoring with daily BMPs kidney function improving 8. Bilateral lower extremity swelling ? Venous duplex obtained did show bilateral below-knee DVT in the superficial cephalic DVT to the right upper extremity. Patient currently not a candidate for anticoagulation given her severe thrombocytopenia 05/15/2024; Plan is to initiate systemic anticoagulation once platelet count is above 50K 9. Paroxysmal A-fib with RVR ? Patient was managed with amiodarone did develop bradycardia amiodarone subsequently discontinued. Patient not a candidate for systemic anticoagulation given her severe thrombocytopenia 10. Elevated troponin ? Secondary to demand ischemia patient presentation not consistent with acute coronary syndrome 11. Chronic thrombocytopenia patient treated with avatrombopag 20 mg daily. Subsequently monitoring with daily CBC with differential ? 05/11/2024; consult placed to Dr. Kim patient's oncologist per her request ? 05/12/2024 did explain to patient about Dr. Kim not taking consult in the hospital patient will follow-up with Dr. Kim as outpatient. Platelet count up to 23K ? 05/13/2024; platelet count up to 30K. ? 05/15/2024 platelet count up to 40K 12. Abnormal vaginal bleeding Patient did develop bleeding for vagina the day prior. Ordered transvaginal ultrasound which demonstrated Fibroid uterus consistent with prior CT findings. Abnormal endometrium, hyperplasia versus neoplasia with possible polyp. Plan is for patient to follow-up with [facility] as outpatient Time spent in the patient's overall evaluation,decision-making process, review of diagnostic data, adjustment of management, discussion with other providers, nursing nursing and ancillary staff involved in patient's care documentation, 36 Minutes Charges/Coding Visit Charges Inpatient E&M: 78874 Subs Hosp L2
[2024-05-15] MEDS: BMX LIQUID 180 ML 15 ML PO (09:26)
[2024-05-15] MEDS: Lactobacillis Acidophilus 1 CAP PO ×2 (09:27→22:09)
[2024-05-15] MEDS: Furosemide 40 MG/4 ML Vial IV (09:27)
[2024-05-15] MEDS: guaiFENesin 1,200 MG Tablet 1200 MG PO ×2 (09:27→22:09)
[2024-05-15] MEDS: [UNRECOGNIZED DRUG - OTHER] PO (09:27)
[2024-05-15] MEDS: NYSTATIN 500,000 UNIT/5 ML UDC 500000 UNIT PO ×2 (14:47→22:09)
[2024-05-15] MEDS: 0.9% Saline Lock 10 ML Syringe IV (18:25)
[2024-05-16] VITALS (14 sets, daily range): BP systolic 147–151; BP diastolic 81–95; PULSE 73–85; RESP 16–22; TEMP 36.4–36.8; O2SAT 92–95; BMI 35.8
[2024-05-16] MEDS: Meropenem 1 GM in 0.9% Normal Saline (100mL MB+) 100 ML IV ×3 (06:35→22:57)
[2024-05-16] MEDS: Acyclovir 5% Tube 1 APPLIC TOPICAL ×5 (06:35→22:58)
--- NOTE | 2024-05-16 07:28 | PN.HOSP_ITS ---
Reason for Visit Reason for Visit: Diagnoses Sepsis, unspecified organism (05/04/24) Pneumonia, unspecified organism (05/04/24) Respiratory failure, unspecified, unspecified whether with hypoxia or hypercapnia (05/04/24) Acute kidney failure, unspecified (05/04/24) Chronic kidney disease, unspecified (05/04/24) Severe sepsis with septic shock (05/04/24) Subjective Subjective Patient seen complains of hemoptysis as well as bleeding from the tongue and gram with brushing of the teeth this a.m. Repeated patient check surgery. Her platelet count up to 53K. Objective Data Objective Data Vital Signs: Vital Signs Temp Pulse Resp BP Pulse Ox O2 Del Method O2 Flow Rate 98.1 F 76 18 151/88 H 92 Nasal Cannula 3 05/16/24 02:00 05/16/24 02:00 05/16/24 02:00 05/16/24 02:00 05/16/24 02:00 05/16/24 02:00 05/16/24 02:00 FiO2 35 05/14/24 03:25 Oxygen Flow Rate (L/min) 3 Oxygen Delivery Method Nasal Cannula Weight: 97.5 kg Body Mass Index (BMI) 35.8 Intake & Output: Intake and Output for Last 24 Hours 05/14/24 05/15/24 05/16/24 23:59 23:59 23:59 Intake Total 1260 / 1260 1170.00 / 1770.00 920 / 920 Output Total 1650 / 1650 Balance -390 / -390 1170.00 / 1770.00 920 / 920 Lab / Micro Data 05/16/24 08:45 05/16/24 08:45 Labs: Laboratory Results - last 24 hr 05/15/24 04:50: Plt Count 40 L*, MPV Not Reportable, Absolute Neuts (auto) 18.6 H, Absolute Lymphs (auto) 1.67, Total Counted 100, Neutrophils % (Manual) 88 H, Band Neutrophils % 1, Lymphocytes % (Manual) 8 L, Monocytes % (Manual) 1, M etamyelocytes % 2 H, Diff Path Review May foll, Polychromasia 1+, Hypochromasia 1+, Basophilic Stippling 1+, Anisocytosis 2+, Spherocytes 2+ H Micro: Microbiology 05/08/24 09:45 Sputum, Expectorated/Coughed Gram Stain - Final 05/08/24 09:45 Sputum, Expectorated/Coughed Respiratory Culture - Final Presumptive C albicans 05/07/24 01:05 Sputum, Expectorated/Coughed Gram Stain - Final 05/07/24 01:05 Sputum, Expectorated/Coughed Respiratory Culture - Final Ericka albicans 05/06/24 21:36 Urine, Random Urine Culture - Final Presumptive E. coli 05/04/24 11:15 Blood Culture (Wb) - Anticubital Left Bacteria Detection (PCR) - Final Streptococcus pneumo 05/04/24 11:15 Blood Culture (Wb) - Anticubital Left Blood Culture - Final Streptococcus pneumoniae 05/05/24 18:15 Urine, Catheterized Urine Culture - Final ESBL Escherichia coli 05/07/24 07:27 Stool Enteric Bacteriology - Final 05/05/24 17:26 Mucosa - Nose Respiratory Panel (PCR) - Final 05/05/24 17:30 Nasal Secretion MRSA (PCR) - Final 05/05/24 18:15 Urine, Clean Catch Legionella Antigen - Final 05/05/24 18:15 Urine, Clean Catch Streptococcus pneumoniae Antigen (M - Final Streptococcus pneumonia Ag 05/04/24 11:45 Mucosa - Nose SARS-CoV-2, Influenza & RSV (PCR) - Final Physical Exam Narrative GENERAL: cooperative HEENT: Atraumatic; normocephalic EYES; Anicteric, Normal Conjunctiva NECK; supple, normal thyroid, RESPIRATORY: Diminished to auscultation CARDIOVASCULAR: Regular S1 S2, GI: soft, normoactive bowel sounds, : No Renal angle tenderness; EXTREMITIES: No edema, no clubbing, MUSCULOSKELETAL: no muscle wasting NEURO: Awake; no lateralizing signs. SKIN: Herpetic lesions on the lips PSYCH; Flat affect Assessment & Plan Assessment/Plan (1) Sepsis: (2) Respiratory failure: (3) Acute kidney injury superimposed on chronic kidney disease: PLAN: Plan Patient is a 78-year-old female sent from PCPs office with progressive generalized weakness and shortness of breath and assessment of sepsis secondary to pneumonia was made admitted to a monitored bed for further management 1. Sepsis ? Secondary to pneumonia with streptococcal pneumonia with bacteremia as well as acute cystitis ? 05/13/2024; patient WBC count trending in the right direction. Case was discussed with Dr. Blanco regarding antibiotic therapy. ? 05/16/2024; patient scheduled to complete antibiotic therapy as of today 2. Pneumonia - secondary to streptococcal pneumonia, Blood and sputum cultures sent. Patient placed on Rocephin and Zithromax switched to vancomycin and Zosyn. Blood cultures and urine antigen both positive for streptococcal pneumonia ? 05/11/2024; Zosyn and vancomycin discontinued the day prior patient placed on meropenem in view of her ESBL E. coli ? 05/12/2024 patient WBC count trending down ? 05/15/2024; WBC count at 20K. Plan is to discontinue meropenem on 05/16/2024 ? 05/16/2024; patient did complain of hemoptysis, repeated patient chest x-ray 3. Acute cystitis with ESBL E. coli ?Zosyn discontinued started on meropenem 4. Lung mass ?CT chest showed a left hilar mass and left-sided mediastinal lymphadenopathy with narrowing of the left upper lobe bronchus causing collapse of the left upper lobe and lingula segment of the left lower lobe with mild loss versus consolidation in the posterior medial segment of the right lower lobe and shift of the heart and mediastinal structures towards the left of the midline. Consult was placed to pulmonary medicine 5. Acute hypoxic respiratory failure due to pneumonia and left hilar mass with collapse of the left upper lobe ? Patient was initially managed on noninvasive ventilation with BiPAP has since been weaned off to nasal cannula 6. Chronic congestive heart failure with preserved ejection fraction ? Echo demonstrated EF of 65% 7.Acute kidney injury ? Superimposed on chronic kidney disease stage IIIa. Monitoring with daily BMPs kidney function improving 8. Bilateral lower extremity swelling ? Venous duplex obtained did show bilateral below-knee DVT in the superficial cephalic DVT to the right upper extremity. Patient currently not a candidate for anticoagulation given her severe thrombocytopenia 05/15/2024; Plan is to initiate systemic anticoagulation once platelet count is above 50K 9. Paroxysmal A-fib with RVR ? Patient was managed with amiodarone did develop bradycardia amiodarone subsequently discontinued. Patient not a candidate for systemic anticoagulation given her severe thrombocytopenia 10. Elevated troponin ? Secondary to demand ischemia patient presentation not consistent with acute coronary syndrome 11. Chronic thrombocytopenia patient treated with avatrombopag 20 mg daily. Subsequently monitoring with daily CBC with differential ? 05/11/2024; consult placed to Dr. Masci patient's oncologist per her request ? 05/12/2024 did explain to patient about Dr. Kim not taking consult in the hospital patient will follow-up with Dr. Kim as outpatient. Platelet count up to 23K ? 05/13/2024; platelet count up to 30K. ? 05/15/2024 platelet count up to 40K 05/16/2020 complains of hemoptysis as well as bleeding from the tongue and gram with brushing of the teeth this a.m. Her platelet count continues to improve, currently up to 53K. 12. Abnormal vaginal bleeding Patient did develop bleeding for vagina the day prior. Ordered transvaginal ultrasound which demonstrated Fibroid uterus consistent with prior CT findings. Abnormal endometrium, hyperplasia versus neoplasia with possible polyp. Plan is for patient to follow-up with [facility] as outpatient Time spent in the patient's overall evaluation,decision-making process, review of diagnostic data, adjustment of management, discussion with other providers, nursing nursing and ancillary staff involved in patient's care documentation, 36 Minutes Charges/Coding Visit Charges Inpatient E&M: 23242 Subs Hosp L2
[2024-05-16] MEDS: Ipratropium/Albuterol Sulfate 3 ML AMPUL.NEB INHALATION ×3 (07:29→20:20)
[2024-05-16 08:58] LABS: Hematocrit 44.4 % (37-47); Hemoglobin 13.8 g/dL (12.0-15.0); Mean Corp Hgb Conc 31.1 g/dL (32-36); Mean Corpuscular Volume 80.4 fL (81-99); POSITIVE COUNT YES; POSITIVE MORPHOLOGY YES; Platelet Count 53 K/mm3 (150-450); RBC Distribution Width CV 23.2 % (11.6-14.6); RBC Distribution Width SD 65.1 fl (35.1-43.9); Red Blood Count 5.52 M/mm3 (4.2-5.4); White Blood Count 19.6 K/mm3 (4.4-11.0)
[2024-05-16 09:29] LABS: Scan Indicated on CBC? Y/N YES- FLAGS NOTED
[2024-05-16 09:42] LABS: ALB/GLOB Ratio 0.3 RATIO (0.9-2.4); AST(SGOT) 21 U/L (15-37); Alanine Aminotransfer ALT/SGPT < 6 U/L (13-56); Albumin, Serum 1.5 g/dL (3.2-5.0); Alkaline Phosphatase 159 U/L (45-117); Anion Gap 4 (5-15); BUN 13 mg/dL (7-18); BUN/Creat Ratio 15.3 RATIO (10-20); Calcium,Total 8.1 mg/dL (8.5-10.1); Chloride 105 mmol/L (98-107); Creatinine, Serum 0.85 mg/dL (0.55-1.02); EST Glomerular Filtration Rate 69 mL/min (>60); Est Glom Filt Rate - Afr Amer 84 mL/min (>60); Estimated Creatinine Clearance 63.84 ml/min; Globulin 5.4 g/dL (2.2-4.2); Glucose 97 mg/dL (74-106); Magnesium 1.4 mg/dL (1.6-2.6); Potassium 3.6 mmol/L (3.5-5.1); Protein, Total 6.9 g/dL (6.4-8.2); Sodium Level 137 mmol/L (136-145)
[2024-05-16] MEDS: Lactobacillis Acidophilus 1 CAP PO ×2 (10:09→22:57)
[2024-05-16] MEDS: guaiFENesin 1,200 MG Tablet 1200 MG PO ×2 (10:10→22:57)
[2024-05-16] MEDS: [UNRECOGNIZED DRUG - OTHER] PO (10:10)
[2024-05-16] MEDS: Furosemide 40 MG/4 ML Vial IV (10:12)
--- NOTE | 2024-05-16 11:15 | RAD_ITS ---
EXAM: XR CHEST, 1 VIEW CLINICAL INDICATION: SOB TECHNIQUE: Frontal view of the chest. COMPARISON: CT chest, 05/05/2024, chest radiograph, 05/05/2024. FINDINGS: LUNGS AND PLEURAL SPACES: Improved aeration in the left lung compared to prior examinations. Persistent improved left lower lobe and perhaps worse right lower lobe pulmonary opacities consistent with pneumonia. Likely small bilateral pleural effusions. No pneumothorax. HEART: No significant abnormality. Cardiac silhouette not enlarged. MEDIASTINUM: Central airways and mediastinal contour are unremarkable. BONES/JOINTS: Degenerative changes in the spine. No acute fracture. SOFT TISSUES: No significant abnormality. RAD/Chest 1 View (Portable) IMPRESSION: 1. Improved aeration in the left lung compared to prior examinations. Persistent improved left lower lobe and perhaps worse right lower lobe pulmonary opacities consistent with pneumonia. 2. Likely small bilateral pleural effusions. Electronically Signed: Joe Olivera DO at 12:17 EST ,
[2024-05-17] VITALS (8 sets, daily range): BP systolic 132–143; BP diastolic 71–85; PULSE 72–88; RESP 18–20; TEMP 36.6–37; O2SAT 91–96; BMI 35.6
[2024-05-17] MEDS: Meropenem 1 GM in 0.9% Normal Saline (100mL MB+) 100 ML IV ×3 (06:20→22:36)
[2024-05-17] MEDS: Acyclovir 5% Tube 1 APPLIC TOPICAL ×5 (06:21→22:37)
[2024-05-17 07:01] LABS: Absolute Lymphocyte Count 1.33 X10^3/uL (0.83-4.51); Absolute Neutrophil Count 13.1 X10^3/uL (2.0-7.7); Basophil# 0.14 X10^3/uL; Basophil% 0.9 % (0-1); Eosinophil# 0.27 X10^3/uL; Eosinophils% 1.7 % (0-5); Hematocrit 40.1 % (37-47); Hemoglobin 12.4 g/dL (12.0-15.0); Lymphocyte # 1.33 X10^3/ul (0.83-4.51); Lymphocyte % 8.1 % (19-41); Mean Corp Hgb Conc 30.9 g/dL (32-36); Mean Corpuscular Hgb 24.8 pg (27.0-32.0); Mean Corpuscular Volume 80.4 fL (81-99); Monocyte# 1.12 X10^3/uL; Monocyte% 6.9 % (0-10); NRBC Flagged by Analyzer 0 % (0-5); Neutrophil # 13.06 X10^3/uL (2.7-7.7); Neutrophil % 79.9 % (47-70); POSITIVE COUNT YES; POSITIVE MORPHOLOGY YES; Platelet Count 56 K/mm3 (150-450); RBC Distribution Width CV 22.8 % (11.6-14.6); Red Blood Count 4.99 M/mm3 (4.2-5.4); White Blood Count 16.3 K/mm3 (4.4-11.0)
[2024-05-17] MEDS: Ipratropium/Albuterol Sulfate 3 ML AMPUL.NEB INHALATION ×3 (07:11→20:01)
[2024-05-17 07:41] LABS: Differential Indicated SCAN CRITERIA MET
[2024-05-17 07:46] LABS: Anion Gap 3 (5-15); BUN 12 mg/dL (7-18); BUN/Creat Ratio 15.9 RATIO (10-20); Calcium,Total 7.1 mg/dL (8.5-10.1); Chloride 104 mmol/L (98-107); Creatinine, Serum 0.76 mg/dL (0.55-1.02); EST Glomerular Filtration Rate 79 mL/min (>60); Est Glom Filt Rate - Afr Amer 96 mL/min (>60); Estimated Creatinine Clearance 67.72 ml/min; Glucose 89 mg/dL (74-106); Potassium 3.6 mmol/L (3.5-5.1); Sodium Level 137 mmol/L (136-145)
[2024-05-17] MEDS: Furosemide 40 MG/4 ML Vial IV (09:51)
[2024-05-17] MEDS: Lactobacillis Acidophilus 1 CAP PO ×2 (09:51→22:37)
[2024-05-17] MEDS: [UNRECOGNIZED DRUG - OTHER] PO (09:52)
[2024-05-17 09:54] LABS: Anisocytosis 1+; Platelet Estimate MOD DEC (ADEQ)
[2024-05-17] MEDS: guaiFENesin 1,200 MG Tablet 1200 MG PO ×2 (13:40→22:37)
--- NOTE | 2024-05-17 13:49 | PCM.PN.ID ---
Physical Exam Narrative Feeling better, some cough and sputum, no fever, no abd pain Const alert and no apparent distress General Appearance: cooperative Resp Auscultation: diminished lung sounds Cardio regular rate and regular rhythm GI soft to palpation, non-tender and non-distended Skin no rashes or lesions noted ID ID: Route of nutrition/ use of supplements: [] Nutritional Intake: [] IV Site: [] Ordonez Catheter: [] Assessment & Plan Assessment/Plan (1) Sepsis: PLAN: Bacteremia with strep pneumo. S pneumo UAg (+). L hilar mass and adenopathy seen on CT. Changed to meropenem 05/10/24. Ucx with small growth ESBL ecoli 05/05 but repeat 05/06 was neg. Denies any urinary symptoms. Wbc improving over past few days. Will order repeat chest CT this admit given mass and possible post-obstructive pneumonia. On [place]. Will follow (2) Acute kidney injury superimposed on chronic kidney disease: (3) Pneumonia:
[2024-05-17 14:04] LABS: Pathologist Review Reviewed
[2024-05-17 14:08] LABS: Pathologist Review Reviewed
--- NOTE | 2024-05-17 14:15 | CT_ITS ---
STUDY: CT CHEST WITH CONTRAST REASON FOR EXAM: Female, 78 years old. Pneumonia RADIATION DOSAGE (If Supplied By Facility): CTDIvol = ( 14.90 ) mGy, DLP = ( 596.16 ) mGycm TECHNIQUE: Transaxial imaging was performed following intravenous administration of IV 100mL Isovue-300. Multiplanar coronal and sagittal images were reformatted. Individualized dose optimization techniques were used for this CT. COMPARISON: Comparison is made with prior study dated May 05, 2024. FINDINGS: CHEST Persistent dense consolidation in the left upper lobe although this is improved as compared to prior study. Patchy infiltrate in the right lower lobe with a small right pleural effusion. There is elevation of the right hemidiaphragm. Normal heart and pericardium. Stable enlarged mediastinal lymph nodes. Prominent left hilar lymph nodes. Enlarged right hilar lymph nodes. Intraluminal filling defect in the right interlobar pulmonary artery suggestive of pulmonary embolism. Normal aorta arch and descending thoracic aorta. There are multi-level degenerative changes of the thoracic spine. Small hiatal hernia. CT/Chest WITH Contrast IMPRESSION: Residual dense consolidation in the left upper lobe with a patchy infiltrate in the right lower lobe and small right pleural effusion. Mild findings seen in the left lower lobe. Pulmonary embolism seen in the right interlobar pulmonary artery. Electronically Signed: Pedro Mazariegos MD at 14:52 EST ,
--- NOTE | 2024-05-17 15:25 | PN.HOSP_ITS ---
Reason for Visit Reason for Visit: Diagnoses Sepsis, unspecified organism (05/04/24) Pneumonia, unspecified organism (05/04/24) Respiratory failure, unspecified, unspecified whether with hypoxia or hypercapnia (05/04/24) Acute kidney failure, unspecified (05/04/24) Chronic kidney disease, unspecified (05/04/24) Severe sepsis with septic shock (05/04/24) Objective Data Objective Data Vital Signs: Vital Signs Temp Pulse Resp BP Pulse Ox O2 Del Method O2 Flow Rate 98.6 F 85 18 137/73 H 93 Nasal Cannula 3 05/17/24 15:00 05/17/24 15:00 05/17/24 15:00 05/17/24 15:00 05/17/24 15:00 05/17/24 15:00 05/17/24 15:00 FiO2 35 05/14/24 03:25 Oxygen Flow Rate (L/min) 3 Oxygen Delivery Method Nasal Cannula Weight: 214 lb 4.629 oz Body Mass Index (BMI) 35.6 Intake & Output: Intake and Output for Last 24 Hours 05/15/24 05/16/24 05/17/24 23:59 23:59 23:59 Intake Total 1170.00 / 1770.00 1160 / 1760 840 / 840 Balance 1170.00 / 1770.00 1160 / 1760 840 / 840 Lab / Micro Data 05/17/24 06:02 05/17/24 06:02 Labs: Laboratory Results - last 24 hr 05/14/24 06:11: Diff Path Review Reviewed 05/15/24 04:50: Diff Path Review Reviewed 05/17/24 06:02: WBC 16.3 H, RBC 4.99, Hgb 12.4, Hct 40.1, MCV 80.4 L, MCH 24.8 L , MCHC 30.9 L, RDW Std Deviation 65.0 H, RDW Coeff of Joya 22.8 H, Plt Count 56 L , Immature Gran % (Auto) 2.500 H, Neut % (Auto) 79.9 H, Lymph % (Auto) 8.1 L, [place] % (Auto) 6.9, Eos % (Auto) 1.7, Baso % (Auto) 0.9, Absolute Neuts (auto) 13.1 H, Absolute Lymphs (auto) 1.33, Nucleated RBC % 0, Platelet Estimate MOD DEC, Anisocytosis 1+, Sodium 137, Potassium 3.6, Chloride 104, Carbon Dioxide 30.0, Anion Gap 3 L, BUN 12, Creatinine 0.76, Estim Creat Clear Calc 67.72, Est GFR (MDRD) Af Amer 96, Est GFR (MDRD) Non-Af 79, BUN/Creatinine Ratio 15.9, Glucose 89, Calcium 7.1 L Micro: Microbiology 05/08/24 09:45 Sputum, Expectorated/Coughed Gram Stain - Final 05/08/24 09:45 Sputum, Expectorated/Coughed Respiratory Culture - Final Presumptive C albicans 05/07/24 01:05 Sputum, Expectorated/Coughed Gram Stain - Final 05/07/24 01:05 Sputum, Expectorated/Coughed Respiratory Culture - Final Ericka albicans 05/06/24 21:36 Urine, Random Urine Culture - Final Presumptive E. coli 05/04/24 11:15 Blood Culture (Wb) - Anticubital Left Bacteria Detection (PCR) - Final Streptococcus pneumo 05/04/24 11:15 Blood Culture (Wb) - Anticubital Left Blood Culture - Final Streptococcus pneumoniae 05/05/24 18:15 Urine, Catheterized Urine Culture - Final ESBL Escherichia coli 05/07/24 07:27 Stool Enteric Bacteriology - Final 05/05/24 17:26 Mucosa - Nose Respiratory Panel (PCR) - Final 05/05/24 17:30 Nasal Secretion MRSA (PCR) - Final 05/05/24 18:15 Urine, Clean Catch Legionella Antigen - Final 05/05/24 18:15 Urine, Clean Catch Streptococcus pneumoniae Antigen (M - Final Streptococcus pneumonia Ag 05/04/24 11:45 Mucosa - Nose SARS-CoV-2, Influenza & RSV (PCR) - Final Radiography Diagnostic Testing: Radiology Impression Chest CT 05/17/24 14:15 IMPRESSION: Residual dense consolidation in the left upper lobe with a patchy infiltrate in the right lower lobe and small right pleural effusion. Mild findings seen in the left lower lobe. Pulmonary embolism seen in the right interlobar pulmonary artery. Electronically Signed: Pedro Mazariegos MD at 14:52 EST , Physical Exam Narrative Seen and examined. Patient has been here since 05/04/2024. Cough and shortness of breath is better. Still has intermittent mucosal bleeding like epistaxis oral and vaginal bleeding from thrombocytopenia sometimes in last 2 to 3 days. Physical exam Physical exam General: Alert, Oriented x3, Cooperative HEENT: Atraumatic, PERRLA, EOMI, Normocephalic Oral: Epistaxis/oral mucosal bleed to 3 days ago. Neck: Supple, No JVD, Negative Carotid Bruits Chest wall/Lungs: Air entry diminished in bilateral lungs. Mild coarse crepitations. Cardiovascular: Sinus rhythm, Normal S1, Normal S2, No M/G/R Abdomen: Bowel Sounds Present, Soft, Non Tender, Non-Distended : No dysuria. No renal angle tenderness. No suprapubic tenderness. Extremities: Minimal to mild edema, Capillary Refill Less than 3 Seconds Skin: Left lower leg mildly tender and red from DVT. No petechial rash. Musculoskeletal: No Tenderness to Palpation of Joints or Extremities Neurological: Cranial nerves II-XII grossly intact, DTR 2+/4. No acute focal neurological deficit. Psych/Mental Status: Flat affect. Assessment & Plan Assessment/Plan (1) Sepsis: (2) Respiratory failure: (3) Acute kidney injury superimposed on chronic kidney disease: PLAN: Plan Patient is a 78-year-old female sent from PCPs office with progressive generalized weakness and shortness of breath and assessment of sepsis secondary to pneumonia was made admitted to a monitored bed for further management 1. Sepsis ? Secondary to pneumonia with streptococcal pneumonia with bacteremia as well as acute cystitis ? 05/13/2024; patient WBC count trending in the right direction. Case was discussed with Dr. Blanco regarding antibiotic therapy. ? 05/16/2024; patient scheduled to complete antibiotic therapy as of today 05/17: Patient was seen by ID. Patient had repeat CT chest with IV contrast. Shows residual dense consolidation in the left upper lobe with patchy infiltrate in right lower lobe and a small right pleural effusion. Mild findings in the left lower lobe. PE in right interlobar pulmonary artery. Leukocytosis improving. On meropenem. 2. Pneumonia - secondary to streptococcal pneumonia, Blood and sputum cultures sent. Patient placed on Rocephin and Zithromax switched to vancomycin and Zosyn. Blood cultures and urine antigen both positive for streptococcal pneumonia ? 05/11/2024; Zosyn and vancomycin discontinued the day prior patient placed on meropenem in view of her ESBL E. coli ? 05/12/2024 patient WBC count trending down ? 05/15/2024; WBC count at 20K. Plan is to discontinue meropenem on 05/16/2024 ? 05/16/2024; patient did complain of hemoptysis, repeated patient chest x-ray 3. Acute cystitis with ESBL E. coli ?Zosyn discontinued started on meropenem 4. Lung mass, ?CT chest showed a left hilar mass and left-sided mediastinal lymphadenopathy with narrowing of the left upper lobe bronchus causing collapse of the left upper lobe and lingula segment of the left lower lobe with mild loss versus consolidation in the posterior medial segment of the right lower lobe and shift of the heart and mediastinal structures towards the left of the midline. Consult was placed to pulmonary medicine 05/17: Left hilar mass and adenopathy on CT scan possible postobstructive pneumonia on meropenem. 5. Acute hypoxic respiratory failure due to pneumonia and left hilar mass with collapse of the left upper lobe ? Patient was initially managed on noninvasive ventilation with BiPAP has since been weaned off to nasal cannula 6. Chronic congestive heart failure with preserved ejection fraction ? Echo demonstrated EF of 65% 7.Acute kidney injury ? Superimposed on chronic kidney disease stage IIIa. Monitoring with daily BMPs kidney function improving 8. Bilateral lower extremity swelling due to DVT ? Venous duplex obtained did show bilateral below-knee DVT in the superficial cephalic DVT to the right upper extremity. Patient currently not a candidate for anticoagulation given her severe thrombocytopenia 05/17: Vascular surgery requested. Discussed with Dr. Roche. Patient has bilateral DVT, right upper extremity DVT and chronic left femoral DVT. Evaluation for IVC filter 9. Paroxysmal A-fib with RVR ? Patient was managed with amiodarone did develop bradycardia amiodarone subsequently discontinued. Patient not a candidate for systemic anticoagulation given her severe thrombocytopenia 10. Elevated troponin ? Secondary to demand ischemia patient presentation not consistent with acute coronary syndrome 11. Chronic thrombocytopenia patient treated with avatrombopag 20 mg daily. Subsequently monitoring with daily CBC with differential ? 05/11/2024; consult placed to Dr. Kim patient's oncologist per her request ? 05/12/2024 did explain to patient about Dr. Kim not taking consult in the hospital patient will follow-up with Dr. Kim as outpatient. Platelet count up to 23K ? 05/13/2024; platelet count up to 30K. ? 05/15/2024 platelet count up to 40K 05/16/2020 complains of hemoptysis as well as bleeding from the tongue and gram with brushing of the teeth this a.m. Her platelet count continues to improve, currently up to 53K. 05/17: Platelet count 56,000. I would not start antithrombotic therapy patient having intermittent thrombocytopenic bleeding without being on antiplatelet or anticoagulant agent. 12. Abnormal vaginal bleeding Patient did develop bleeding for vagina the day prior. Ordered transvaginal ultrasound which demonstrated Fibroid uterus consistent with prior CT findings. Abnormal endometrium, hyperplasia versus neoplasia with possible polyp. Plan is for patient to follow-up with [facility]ASUREMENT TECHNICIAN as outpatient Laboratory Results 05/14/24 06:11: Diff Path Review Reviewed 05/15/24 04:50: Diff Path Review Reviewed 05/17/24 06:02: WBC 16.3 H, RBC 4.99, Hgb 12.4, Hct 40.1, MCV 80.4 L, MCH 24.8 L , MCHC 30.9 L, RDW Std Deviation 65.0 H, RDW Coeff of Joya 22.8 H, Plt Count 56 L , Immature Gran % (Auto) 2.500 H, Neut % (Auto) 79.9 H, Lymph % (Auto) 8.1 L, [place] % (Auto) 6.9, Eos % (Auto) 1.7, Baso % (Auto) 0.9, Absolute Neuts (auto) 13.1 H, Absolute Lymphs (auto) 1.33, Nucleated RBC % 0, Platelet Estimate MOD DEC, Anisocytosis 1+, Sodium 137, Potassium 3.6, Chloride 104, Carbon Dioxide 30.0, Anion Gap 3 L, BUN 12, Creatinine 0.76, Estim Creat Clear Calc 67.72, Est GFR (MDRD) Af Amer 96, Est GFR (MDRD) Non-Af 79, BUN/Creatinine Ratio 15.9, Glucose 89, Calcium 7.1 L Charges/Coding Visit Charges Inpatient E&M: 78096 Subs Hosp L2
--- NOTE | 2024-05-17 17:16 | VDLE_ITS ---
Reason For Study: Bilateral leg swelling RIGHT LEFT Acute SVT noted in ASV approximately 1.61 cm GSV is compressible ankle to knee. Unable to distal to SFJ. Unable to visualize GSV. Pt visualize, knee to SFJ. reports HX of GSV ablation/stripping. CFV is partially NONCOMPRESSIBLE with Acute CFV is compressible, spontaneous, phasic, deep vein thrombosis noted extending from competent and demonstrates normal the ProfundaV. augmentation. ProfundaV is NONCOMPRESSIBLE with minimal FV is compressible, spontaneous, phasic, venous flow. Acute deep vein thrombosis competent and demonstrates normal noted. augmentation. FV is compressible, spontaneous, competent POP V is compressible, spontaneous, phasic, and demonstrates normal venous flow. competent and demonstrates normal Acute deep vein thrombosis is noted in the augmentation. PopV and T/P Trunk. It is NONCOMPRESSIBLE. Acute deep vein thrombosis is noted in the Acute deep vein thrombosis is noted in the PTV. It is dilated and NONCOMPRESSIBLE. PTV. It is dilated and NONCOMPRESSIBLE. RT PerV is compressible. Acute deep vein thrombosis is noted in the Acute deep vein thrombosis is noted in the Per V. It is dilated and NONCOMPRESSIBLE. Soleus V. It is dilated and NONCOMPRESSIBLE. Acute deep vein thrombosis is noted in the Procedure Soleus V. It is dilated and NONCOMPRESSIBLE. This is a venous duplex using B-mode, color flow and spectral Doppler. Non vascularized Anechoic area noted in Lt Exam performed portable in patient room. Pop Fossa measuring approximately 4.89 x Compared to 05/10/2024. 2.29 x 7.32 cm. A preliminary report was called and/or faxed to [facility]. VL/Venous Duplex US - Balaji Extrem Interpretation Summary Acute deep vein thrombosis is noted in the right posterior tibial vein, soleus. Acute deep vein thrombosis is noted in the left common femoral vein, profunda f emoral vein, popliteal vein, posterior tibial vein, peroneal vein, soleus vein. Acute superficial vein thrombosis is noted in the right accessory saphenous vei n. Ordering Physician: Angel Kraus Referring Physician: Frank Salinas Performed By: Taina Zuleta RVT
--- NOTE | 2024-05-17 17:19 | CON.PCM.SX_ITS ---
Assessment & Plan Assessment/Plan (1) DVT (deep venous thrombosis): QUALIFIERS: DVT location: lower extremity Affected thrombotic vein of extremity: tibial Chronicity: acute Laterality: bilateral Qualified Code(s): I82.443 - Acute embolism and thrombosis of tibial vein, bilateral PLAN: -bilateral infrapopliteal DVT 05/09 -discussed options, her increased bleeding risk with anticoagulation -will repeat duplex since it has been week from initial imaging -NPO at midnight, likely filter tomorrow unless thrombus resolved HPI Consult Data Date of Consult: 05/17/24 HPI Narrative HPI Narrative: TASHA MCNALLY, is a 78 F who presents with community acquired pneumonia with prolonged hospital stay. Her shortness of breath has significantly improved. She has history of thrombocytopenia which is still undergoing investigation and this has been exacerbated during her acute illness. On 05/09 she had duplex obtained that revealed bilateral infrapopliteal DVT. Due to her thrombocytopenia she was not anticoagulated. In addition over the past few days she has had bleeding from oral mucosa as well as vaginal bleeding. Her plt counts have improved some over past few days. [facility] Medical History History of lupus Lacunar infarction Cerebral microvasculopathy Thickened endometrium Varicose veins of both lower extremities Remote history of stroke Synovial cyst of left popliteal space Vitamin D deficiency Mixed hyperlipidemia Lupus Lung nodules Impaired fasting glucose Hypersomnia CKD (chronic kidney disease) stage 3, GFR 30-59 ml/min Breast density Allergy-induced asthma Abnormal EKG Wears glasses Post-menopausal Arthritis History of renal disease High cholesterol History of Clostridium difficile infection Non-smoker History of edema Venous insufficiency of both lower extremities Peripheral vascular insufficiency Edema of both lower legs Traumatic open wound of lower leg with infection Cerebellar stroke Dizziness Left leg cellulitis HTN (hypertension) C. difficile colitis Diarrhea Left leg cellulitis Leukocytosis CEASAR (acute kidney injury) Home Medications ?Medication ?Instructions ?Recorded ?Last Taken ?Type cholecalciferol (vitamin D3) 50 50 mcg PO DAILY 08/06/23 05/03/24 History mcg (2,000 unit) capsule (Vitamin D3) avatrombopag 20 mg tablet 20 mg PO DAILY 05/04/24 Unknown History fluticasone propionate 50 2 spray intranasal DAILY 05/04/24 05/03/24 History mcg/actuation nasal spray,suspension lactobacillus combination no.4 3 3,000 mmu cells PO DAILY 05/04/24 05/03/24 History billion cell capsule spironolactone 25 mg tablet 12.5 mg PO DAILY 05/04/24 05/03/24 History Allergy/AdvReac Type Severity Reaction Status Date / Time azithromycin Allergy Hives Verified 05/05/24 04:04 fexofenadine (From Mar) Allergy Hives Verified 05/04/24 11:21 montelukast (From Singulair) AdvReac Intermediate Rash Verified 05/04/24 11:21 Family History Mother , throat and tongue Cancer Father , 92 Diabetes CVA (cerebral vascular accident) Other Breast cancer Hodgkin's disease Kidney disease Rheumatoid arthritis Surgical History Hx of laparoscopy Hx of local excision of skin lesion (~05/1999) Hx of breast biopsy H/O vein stripping Social History household members: spouse housing: house Smoking Status: Never smoker alcohol intake: never substance use type: does not use Physical Exam Const alert, oriented x3, no apparent distress and healthy appearing General Appearance: cooperative; Negative for combative or lethargic Orientation / Consciousness: awake Exam Limitations: no limitations HEENT Head and Scalp: normocephalic and atraumatic Eyes EOMs intact bilaterally General Eye: normal appearance of both eyes Neck full ROM, no lymphadenopathy and thyroid normal General: trachea midline Thyroid: thyroid normal Resp normal respiratory effort and no use of accessory muscles Effort and Inspection: Negative for labored, stridor or audible wheezes Cardio regular rate and regular rhythm Peripheral Pulses: brachial pulses present, radial pulses present, femoral pulses present, popliteal pulses present, posterior tibial pulses present and dorsalis pedis pulses present Back/Spine Cervical Spine: cervical ROM normal Extremity full ROM and normal capillary refill General Extremity: edema bilateral upper extremity and lower extremity Skin no rashes or lesions noted and no wounds Neuro oriented x3, CN's II-XII intact bilaterally, no focal motor deficits and no sensory deficits noted Psych thought process normal, cooperative, affect normal, speech normal and activity/motor behavior normal Lab / Micro Data 05/17/24 06:02 05/17/24 06:02 Labs: Laboratory Results - last 24 hr 05/14/24 06:11: Diff Path Review Reviewed 05/15/24 04:50: Diff Path Review Reviewed 05/17/24 06:02: WBC 16.3 H, RBC 4.99, Hgb 12.4, Hct 40.1, MCV 80.4 L, MCH 24.8 L , MCHC 30.9 L, RDW Std Deviation 65.0 H, RDW Coeff of [place] 22.8 H, Plt Count 56 L , Immature Gran % (Auto) 2.500 H, Neut % (Auto) 79.9 H, Lymph % (Auto) 8.1 L, [place] % (Auto) 6.9, Eos % (Auto) 1.7, Baso % (Auto) 0.9, Absolute Neuts (auto) 13.1 H, Absolute Lymphs (auto) 1.33, Nucleated RBC % 0, Platelet Estimate MOD DEC, Anisocytosis 1+, Sodium 137, Potassium 3.6, Chloride 104, Carbon Dioxide 30.0, Anion Gap 3 L, BUN 12, Creatinine 0.76, Estim Creat Clear Calc 67.72, Est GFR (MDRD) Af Amer 96, Est GFR (MDRD) Non-Af 79, BUN/Creatinine Ratio 15.9, Glucose 89, Calcium 7.1 L Imaging Radiology Impression Chest CT 05/17/24 14:15 IMPRESSION: Residual dense consolidation in the left upper lobe with a patchy infiltrate in the right lower lobe and small right pleural effusion. Mild findings seen in the left lower lobe. Pulmonary embolism seen in the right interlobar pulmonary artery. Electronically Signed: Pedro Mazariegos MD at 14:52 EST , Charges/Coding Visit Charges Inpatient E&M: 59415 Init Hosp L3
[2024-05-18] VITALS (18 sets, daily range): BP systolic 128–150; BP diastolic 73–85; PULSE 71–86; RESP 15–20; TEMP 36.7–36.9; O2SAT 90–95; BMI 35.7
[2024-05-18] MEDS: Meropenem 1 GM in 0.9% Normal Saline (100mL MB+) 100 ML IV ×3 (05:11→21:17)
[2024-05-18] MEDS: 0.9% Saline Lock 10 ML Syringe IV ×3 (05:12→21:25)
[2024-05-18 06:39] LABS: Absolute Lymphocyte Count 1.28 X10^3/uL (0.83-4.51); Absolute Neutrophil Count 10.7 X10^3/uL (2.0-7.7); Basophil# 0.11 X10^3/uL; Basophil% 0.8 % (0-1); Eosinophil# 0.29 X10^3/uL; Eosinophils% 2.1 % (0-5); Hematocrit 39.8 % (37-47); Hemoglobin 11.9 g/dL (12.0-15.0); Lymphocyte # 1.28 X10^3/ul (0.83-4.51); Lymphocyte % 9.3 % (19-41); Mean Corp Hgb Conc 29.9 g/dL (32-36); Mean Corpuscular Hgb 24.2 pg (27.0-32.0); Mean Corpuscular Volume 80.9 fL (81-99); Monocyte# 1.07 X10^3/uL; Monocyte% 7.8 % (0-10); NRBC Flagged by Analyzer 0 % (0-5); Neutrophil % 78.2 % (47-70); POSITIVE COUNT YES; POSITIVE MORPHOLOGY YES; Platelet Count 53 K/mm3 (150-450); RBC Distribution Width CV 22.5 % (11.6-14.6); RBC Distribution Width SD 65.4 fl (35.1-43.9); Red Blood Count 4.92 M/mm3 (4.2-5.4); White Blood Count 13.7 K/mm3 (4.4-11.0)
[2024-05-18 06:50] LABS: Differential Indicated SCAN CRITERIA MET
[2024-05-18 06:54] LABS: Anion Gap 3 (5-15); BUN 12 mg/dL (7-18); BUN/Creat Ratio 16.2 RATIO (10-20); Calcium,Total 8.2 mg/dL (8.5-10.1); Chloride 102 mmol/L (98-107); Creatinine, Serum 0.74 mg/dL (0.55-1.02); EST Glomerular Filtration Rate 81 mL/min (>60); Est Glom Filt Rate - Afr Amer 98 mL/min (>60); Estimated Creatinine Clearance 67.75 ml/min; Glucose 103 mg/dL (74-106); Potassium 3.4 mmol/L (3.5-5.1); Sodium Level 136 mmol/L (136-145)
[2024-05-18 07:49] LABS: Anisocytosis 2+; Platelet Estimate MOD DEC (ADEQ)
[2024-05-18] MEDS: Acyclovir 5% Tube 1 APPLIC TOPICAL ×2 (10:23→21:15)
--- NOTE | 2024-05-18 10:25 | CASEMGMT ---
Per RN CM patient now wants to go to TCU. SW sent a referral to [facility] in TCU. Estefania Morales [employer] DEIDRE
--- NOTE | 2024-05-18 10:35 | PN.SURG_ITS ---
Subjective Subjective Patient was seen sitting up in bedside chair. Her O2 requirements have been overall stable at rest, required increased to 4 L with activity. She denies any new or worsened subjective shortness of breath. She denies any worsening in her lower extremity pain. Repeat venous duplex this morning did show propagation of her lower extremity DVT. Objective Data Objective Data Vital Signs: Vital Signs Temp Pulse Resp BP Pulse Ox O2 Del Method O2 Flow Rate 98.0 F 74 18 146/83 H 94 Nasal Cannula 4 05/18/24 10:13 05/18/24 10:13 05/18/24 10:13 05/18/24 10:13 05/18/24 10:13 05/18/24 10:13 05/18/24 10:13 FiO2 35 05/14/24 03:25 Oxygen Flow Rate (L/min) 4 Oxygen Delivery Method Nasal Cannula Weight: 214 lb 8.156 oz Body Mass Index (BMI) 35.7 Intake & Output: Intake and Output for Last 24 Hours 05/16/24 05/17/24 05/18/24 23:59 23:59 23:59 Intake Total 1160 / 1760 1760 / 1760 240 / 240 Balance 1160 / 1760 1760 / 1760 240 / 240 Lab / Micro Data 05/18/24 05:24 05/18/24 05:24 Labs: Laboratory Results - last 24 hr 05/14/24 06:11: Diff Path Review Reviewed 05/15/24 04:50: Diff Path Review Reviewed 05/18/24 05:24: WBC 13.7 H, RBC 4.92, Hgb 11.9 L, Hct 39.8, MCV 80.9 L, MCH 24.2 L, MCHC 29.9 L, RDW Std Deviation 65.4 H, RDW Coeff of Joya 22.5 H, Plt Count 53 L, MPV TNP, Immature Gran % (Auto) 1.800 H, Neut % (Auto) 78.2 H, Lymph % (Auto) 9.3 L, [place] % (Auto) 7.8, Eos % (Auto) 2.1, Baso % (Auto) 0.8, Absolute Neuts (auto) 10.7 H, Absolute Lymphs (auto) 1.28, Nucleated RBC % 0, Platelet Estimate MOD DEC, Anisocytosis 2+, Sodium 136, Potassium 3.4 L, Chloride 102, Carbon Dioxide 31.0, Anion Gap 3 L, BUN 12, Creatinine 0.74, Estim Creat Clear Calc 67.75, Est GFR (MDRD) Af Amer 98, Est GFR (MDRD) Non-Af 81, BUN/Creatinine Ratio 16.2, Glucose 103, Calcium 8.2 L Micro: Microbiology 05/08/24 09:45 Sputum, Expectorated/Coughed Gram Stain - Final 05/08/24 09:45 Sputum, Expectorated/Coughed Respiratory Culture - Final Presumptive C albicans 05/07/24 01:05 Sputum, Expectorated/Coughed Gram Stain - Final 05/07/24 01:05 Sputum, Expectorated/Coughed Respiratory Culture - Final Ericka albicans 05/06/24 21:36 Urine, Random Urine Culture - Final Presumptive E. coli 05/04/24 11:15 Blood Culture (Wb) - Anticubital Left Bacteria Detection (PCR) - Final Streptococcus pneumo 05/04/24 11:15 Blood Culture (Wb) - Anticubital Left Blood Culture - Final Streptococcus pneumoniae 05/05/24 18:15 Urine, Catheterized Urine Culture - Final ESBL Escherichia coli 05/07/24 07:27 Stool Enteric Bacteriology - Final 05/05/24 17:26 Mucosa - Nose Respiratory Panel (PCR) - Final 05/05/24 17:30 Nasal Secretion MRSA (PCR) - Final 05/05/24 18:15 Urine, Clean Catch Legionella Antigen - Final 05/05/24 18:15 Urine, Clean Catch Streptococcus pneumoniae Antigen (M - Final Streptococcus pneumonia Ag 05/04/24 11:45 Mucosa - Nose SARS-CoV-2, Influenza & RSV (PCR) - Final Radiography Diagnostic Testing: Radiology Impression Chest CT 05/17/24 14:15 IMPRESSION: Residual dense consolidation in the left upper lobe with a patchy infiltrate in the right lower lobe and small right pleural effusion. Mild findings seen in the left lower lobe. Pulmonary embolism seen in the right interlobar pulmonary artery. Electronically Signed: Pedor Mazariegos MD at 14:52 EST , Physical Exam Const alert, oriented x3, no apparent distress and healthy appearing General Appearance: cooperative; Negative for combative or lethargic Orientation / Consciousness: awake Exam Limitations: no limitations HEENT Head and Scalp: normocephalic and atraumatic Eyes EOMs intact bilaterally General Eye: normal appearance of both eyes Neck no lymphadenopathy General: trachea midline Resp normal respiratory effort and no use of accessory muscles Effort and Inspection: Negative for labored, stridor or audible wheezes Cardio regular rate and regular rhythm Peripheral Pulses: brachial pulses present, radial pulses present, femoral pulses present, popliteal pulses present, posterior tibial pulses present and dorsalis pedis pulses present Extremity full ROM and normal capillary refill General Extremity: edema bilateral upper extremity and lower extremity Skin no rashes or lesions noted and no wounds Neuro oriented x3, CN's II-XII intact bilaterally, no focal motor deficits and no sensory deficits noted Psych thought process normal, cooperative, affect normal, speech normal and activity/motor behavior normal Assessment & Plan Assessment/Plan (1) DVT (deep venous thrombosis): QUALIFIERS: DVT location: lower extremity Affected thrombotic vein of extremity: tibial Chronicity: acute Laterality: bilateral Qualified Code(s): I82.443 - Acute embolism and thrombosis of tibial vein, bilateral PLAN: Repeat venous duplex that shows extension of her lower extremity DVT. Will proceed with IVC filter insertion today. She has been n.p.o. since midnight. I discussed procedure details and recovery with her, all her questions were addressed, she is agreeable to proceed. Charges/Coding Visit Charges Inpatient E&M: 23102 Subs Hosp L1
--- NOTE | 2024-05-18 11:09 | CASEMGMT ---
FLORES CM in to discuss discharge planning with patient. RN CM inquired if patient had preferences for HHC. Patient inquired if she could go to TCU. RN ANGELLA updated patient that her insurance [employer] may not approve due to ambulating 130 feet standby assist with therapy. RN CM inquired if patient had worked with therapy today. Patient states she sent them away as she is waiting for surgery for filter placement. RN CM encouraged patient to work with therapy when they come to see her as that will determine recommendations at discharge. FLORES PERALES asked nursing when filter is scheduled to be placed. Per nurse, no time was given for procedure and was okay with patient working with therapy. RN CM find therapy and asked if they could go back and see patient next. FLORES PERALES back in to update patient that her procedure did not have a time yet and that therapy was coming back to work with her. Patient agreeable to work with therapy at this time. Patient states that her bed and bath is on second floor and if she is not able to ambulate stairs, could she then go to TCU. RN ANGELLA encouraged patient to work with therapy and see how she does and then we could discuss possible SNF vs HHC. Patient agreeable to plan. RN CM updated therapy that patient has stairs at home and asked if they could work with patient ambulating stairs, therapy agreeable. CM will continue to follow this patient and plan for a safe discharge.
--- NOTE | 2024-05-18 11:13 | NURSING ---
Report called to FLORES Cai in [facility].
--- NOTE | 2024-05-18 12:09 | OP.PCM_ITS ---
Operative Report (Standard) Operative Information Surgery/Procedure Performed: insertion inferior vena cava filter Surgeon: Angel Kraus Date of Procedure: 05/18/24 Procedure Start Time: 12:00 Procedure Stop Time: 12:10 Pre-Operative Diagnosis: DVT Post-Operative Diagnosis: same Select all DRAINS/GRAFTS/IMPLANTS that apply: Implanted device Implanted device details: Cook Tulip IVC filter Type of Anesthesia: Local and Sedation,Conscious Estimated Blood Loss: 2 Specimen collected: No Description of surgery: HPI: Patient is a 78-year-old female with bilateral lower extremity deep vein thrombosis which has propagated on serial imaging who is unable to be anticoagulated due to thrombocytopenia and ongoing oromucosa and vaginal bleeding. She is taken now for inferior vena cava filter placement. Description of procedure: Upon obtaining form consent and verification correct patient procedure site patient was taken to the Back End Architect where she was positioned prepped and draped in usual sterile fashion. Time was performed consultation administered Versed and fentanyl. Skin overlying the right common femoral vein was anesthetized 1% lidocaine the vessel accessed under ultrasound guidance with a micropuncture needle wire. This was then exchanged for a micropuncture sheath through which a hand-injection ilio caval venogram was performed revealing satisfactory positioning with no extravasation or dissection. This also revealed patent iliac vein and vena cava with no evidence of thrombus. Through the micropuncture sheath a J-wire was advanced and the micropuncture sheath exchanged for the dilator for the Cook filter delivery system which was utilized to dilate the subcutaneous tract. This was exchanged for the tulip filter delivery sheath which was advanced in the position at the L2 vertebral body. At this position digital subtraction venacavogram was performed revealing normal caliber vena cava with no thrombus and demonstrated the renal vein confluence with the right side being the lowest. This position was then marked and the dilator withdrawn. The Cuate tulip filter was then advanced in the position deployed and the delivery system withdrawn. Subtraction venacavogram was performed which revealed satisfactory positioning with no significant tilt. The sheath was then withdrawn and manual pressure held for 5 minutes with satisfactory stasis noted. The patient then taken the recovery area with plan to return to the PCU. Surgical Findings: filter below lowest renal vein, minimal tilt Assistant Merchandise Manager manager training: No Complications Complications: No
--- NOTE | 2024-05-18 13:38 | PN.HOSP_ITS ---
Reason for Visit Reason for Visit: Diagnoses Sepsis, unspecified organism (05/04/24) Acute embolism and thrombosis of tibial vein, bilateral (05/04/24) Pneumonia, unspecified organism (05/04/24) Respiratory failure, unspecified, unspecified whether with hypoxia or hypercapnia (05/04/24) Acute kidney failure, unspecified (05/04/24) Chronic kidney disease, unspecified (05/04/24) Severe sepsis with septic shock (05/04/24) Objective Data Objective Data Vital Signs: Vital Signs Temp Pulse Resp BP Pulse Ox O2 Del Method O2 Flow Rate 98.0 F 78 15 128/77 H 95 Nasal Cannula 4 05/18/24 10:13 05/18/24 13:15 05/18/24 13:15 05/18/24 13:15 05/18/24 13:15 05/18/24 13:15 05/18/24 13:15 FiO2 35 05/14/24 03:25 Oxygen Flow Rate (L/min) 4 Oxygen Delivery Method Nasal Cannula Weight: 214 lb 8.156 oz Body Mass Index (BMI) 35.7 Intake & Output: Intake and Output for Last 24 Hours 05/16/24 05/17/24 05/18/24 23:59 23:59 23:59 Intake Total 1160 / 1760 1760 / 1760 240 / 240 Balance 1160 / 1760 1760 / 1760 240 / 240 Lab / Micro Data 05/18/24 05:24 05/18/24 05:24 Labs: Laboratory Results - last 24 hr 05/14/24 06:11: Diff Path Review Reviewed 05/15/24 04:50: Diff Path Review Reviewed 05/18/24 05:24: WBC 13.7 H, RBC 4.92, Hgb 11.9 L, Hct 39.8, MCV 80.9 L, MCH 24.2 L, MCHC 29.9 L, RDW Std Deviation 65.4 H, RDW Coeff of Joya 22.5 H, Plt Count 53 L, MPV TNP, Immature Gran % (Auto) 1.800 H, Neut % (Auto) 78.2 H, Lymph % (Auto) 9.3 L, [place] % (Auto) 7.8, Eos % (Auto) 2.1, Baso % (Auto) 0.8, Absolute Neuts (auto) 10.7 H, Absolute Lymphs (auto) 1.28, Nucleated RBC % 0, Platelet Estimate MOD DEC, Anisocytosis 2+, Sodium 136, Potassium 3.4 L, Chloride 102, Carbon Dioxide 31.0, Anion Gap 3 L, BUN 12, Creatinine 0.74, Estim Creat Clear Calc 67.75, Est GFR (MDRD) Af Amer 98, Est GFR (MDRD) Non-Af 81, BUN/Creatinine Ratio 16.2, Glucose 103, Calcium 8.2 L Micro: Microbiology 05/08/24 09:45 Sputum, Expectorated/Coughed Gram Stain - Final 05/08/24 09:45 Sputum, Expectorated/Coughed Respiratory Culture - Final Presumptive C albicans 05/07/24 01:05 Sputum, Expectorated/Coughed Gram Stain - Final 05/07/24 01:05 Sputum, Expectorated/Coughed Respiratory Culture - Final Ericka albicans 05/06/24 21:36 Urine, Random Urine Culture - Final Presumptive E. coli 05/04/24 11:15 Blood Culture (Wb) - Anticubital Left Bacteria Detection (PCR) - Final Streptococcus pneumo 05/04/24 11:15 Blood Culture (Wb) - Anticubital Left Blood Culture - Final Streptococcus pneumoniae 05/05/24 18:15 Urine, Catheterized Urine Culture - Final ESBL Escherichia coli 05/07/24 07:27 Stool Enteric Bacteriology - Final 05/05/24 17:26 Mucosa - Nose Respiratory Panel (PCR) - Final 05/05/24 17:30 Nasal Secretion MRSA (PCR) - Final 05/05/24 18:15 Urine, Clean Catch Legionella Antigen - Final 05/05/24 18:15 Urine, Clean Catch Streptococcus pneumoniae Antigen (M - Final Streptococcus pneumonia Ag 05/04/24 11:45 Mucosa - Nose SARS-CoV-2, Influenza & RSV (PCR) - Final Radiography Diagnostic Testing: Radiology Impression Chest CT 05/17/24 14:15 IMPRESSION: Residual dense consolidation in the left upper lobe with a patchy infiltrate in the right lower lobe and small right pleural effusion. Mild findings seen in the left lower lobe. Pulmonary embolism seen in the right interlobar pulmonary artery. Electronically Signed: Pedro Mazariegos MD at 14:52 EST , Physical Exam Narrative Seen and examined. No acute change. Discussed about the vascular study consult and IVC filter. Patient had repeat venous duplex done. Patient has been here since 05/04/2024. Still has intermittent mucosal bleeding like epistaxis oral and vaginal bleeding from thrombocytopenia sometimes he had past 3 to 4 days Physical exam Physical exam General: Alert, Oriented x3, Cooperative HEENT: Atraumatic, PERRLA, EOMI, Normocephalic Oral: Epistaxis/oral mucosal bleed to 3 days ago. Neck: Supple, No JVD, Negative Carotid Bruits Chest wall/Lungs: Air entry diminished in bilateral lungs. Mild coarse crepitations. Cardiovascular: Sinus rhythm, Normal S1, Normal S2, No M/G/R Abdomen: Bowel Sounds Present, Soft, Non Tender, Non-Distended : No dysuria. No renal angle tenderness. No suprapubic tenderness. Extremities: Bilateral lower extremity edema and LUE edematous, Capillary Refill Less than 3 Seconds Skin: Left lower leg mildly tender and red from DVT. No petechial rash. Musculoskeletal: No Tenderness to Palpation of Joints or Extremities Neurological: Cranial nerves II-XII grossly intact, DTR 2+/4. No acute focal neurological deficit. Psych/Mental Status: Flat affect. Assessment & Plan Assessment/Plan (1) Sepsis: (2) Respiratory failure: (3) Acute kidney injury superimposed on chronic kidney disease: PLAN: Plan Patient is a 78-year-old female sent from PCPs office with progressive generalized weakness and shortness of breath and assessment of sepsis secondary to pneumonia was made admitted to a monitored bed for further management 1. Sepsis ? Secondary to pneumonia with streptococcal pneumonia with bacteremia as well as acute cystitis ? 05/13/2024; patient WBC count trending in the right direction. Case was discussed with Dr. Blanco regarding antibiotic therapy. ? 05/16/2024; patient scheduled to complete antibiotic therapy as of today 05/17: Patient was seen by ID. Patient had repeat CT chest with IV contrast. Shows residual dense consolidation in the left upper lobe with patchy infiltrate in right lower lobe and a small right pleural effusion. Mild findings in the left lower lobe. PE in right interlobar pulmonary artery. Leukocytosis improving. On meropenem. 2. Pneumonia - secondary to streptococcal pneumonia, Blood and sputum cultures sent. Patient placed on Rocephin and Zithromax switched to vancomycin and Zosyn. Blood cultures and urine antigen both positive for streptococcal pneumonia ? 05/11/2024; Zosyn and vancomycin discontinued the day prior patient placed on meropenem in view of her ESBL E. coli ? 05/12/2024 patient WBC count trending down ? 05/15/2024; WBC count at 20K. Plan is to discontinue meropenem on 05/16/2024 ? 05/16/2024; patient did complain of hemoptysis 05/18: Leukocytosis improving 13.7 thousand. ID saw the patient on day 07/06 and continued the meropenem 3. Acute cystitis with ESBL E. coli ?Zosyn discontinued started on meropenem 4. Lung mass, ?CT chest showed a left hilar mass and left-sided mediastinal lymphadenopathy with narrowing of the left upper lobe bronchus causing collapse of the left upper lobe and lingula segment of the left lower lobe with mild loss versus consolidation in the posterior medial segment of the right lower lobe and shift of the heart and mediastinal structures towards the left of the midline. Consult was placed to pulmonary medicine 05/17: Left hilar mass and adenopathy on CT scan possible postobstructive pneumonia on meropenem. 5. Acute hypoxic respiratory failure due to pneumonia and left hilar mass with collapse of the left upper lobe ? Patient was initially managed on noninvasive ventilation with BiPAP has since been weaned off to nasal cannula 6. Chronic congestive heart failure with preserved ejection fraction ? Echo demonstrated EF of 65% 7.Acute kidney injury ? Superimposed on chronic kidney disease stage IIIa. Monitoring with daily BMPs kidney function improving 8. Bilateral lower extremity swelling due to DVT ? Venous duplex obtained did show bilateral infrapopliteal DVT in the superficial cephalic DVT to the right upper extremity. Patient currently not a candidate for anticoagulation given her severe thrombocytopenia 05/17: Vascular surgery requested. Discussed with Dr. Roche. Patient has bilateral DVT, right upper extremity DVT and chronic left femoral DVT. Evaluation for IVC filter 05/18: Repeat venous duplex shows acute bilateral infrapopliteal DVT similar to the previous report. LUE superficial venous thrombosis in left cephalic vein and medial cubital vein. Patient had IVC filter today. Discussed that once her platelet count is stable in future, may be outpatient antithrombotics, low-dose can be considered 9. Paroxysmal A-fib with RVR ? Patient was managed with amiodarone did develop bradycardia amiodarone subsequently discontinued. Patient not a candidate for systemic anticoagulation given her severe thrombocytopenia 10. Elevated troponin ? Secondary to demand ischemia patient presentation not consistent with acute coronary syndrome 11. Chronic thrombocytopenia patient treated with avatrombopag 20 mg daily. Subsequently monitoring with daily CBC with differential ? 05/11/2024; consult placed to Dr. Kim patient's oncologist per her request ? 05/12/2024 did explain to patient about Dr. Kim not taking consult in the hospital patient will follow-up with Dr. Kim as outpatient. Platelet count up to 23K ? 05/13/2024; platelet count up to 30K. ? 05/15/2024 platelet count up to 40K 05/16/2020 complains of hemoptysis as well as bleeding from the tongue and gram with brushing of the teeth this a.m. Her platelet count continues to improve, currently up to 53K. 05/17: Platelet count 56,000. I would not start antithrombotic therapy patient having intermittent thrombocytopenic bleeding without being on antiplatelet or anticoagulant agent. 03/18 platelet count 53 K 12. Abnormal vaginal bleeding Patient did develop bleeding for vagina the day prior. Ordered transvaginal ultrasound which demonstrated Fibroid uterus consistent with prior CT findings. Abnormal endometrium, hyperplasia versus neoplasia with possible polyp. Plan is for patient to follow-up with MEDICAL BILLING AND CODING INSTRUCTOR as outpatient and recommended biopsy once platelet count is stable. Charges/Coding Visit Charges Inpatient E&M: 40475 Subs Hosp L2
[2024-05-18] MEDS: [UNRECOGNIZED DRUG - OTHER] PO (17:56)
[2024-05-18] MEDS: Ipratropium/Albuterol Sulfate 3 ML AMPUL.NEB INHALATION ×2 (19:12→22:40)
[2024-05-18] MEDS: NYSTATIN 500,000 UNIT/5 ML UDC 500000 UNIT PO (21:16)
[2024-05-18] MEDS: Lactobacillis Acidophilus 1 CAP PO (21:16)
--- NOTE | 2024-05-18 21:55 | CPS ---
Patient refused PAP therapy for night time use.
[2024-05-19] VITALS (11 sets, daily range): BP systolic 126–152; BP diastolic 67–83; PULSE 73–92; RESP 15–22; TEMP 36.7–37.1; O2SAT 92–96; BMI 35.6
[2024-05-19] MEDS: Ipratropium/Albuterol Sulfate 3 ML AMPUL.NEB INHALATION ×3 (04:57→19:36)
[2024-05-19] MEDS: Acyclovir 5% Tube 1 APPLIC TOPICAL ×5 (05:08→21:26)
[2024-05-19] MEDS: Meropenem 1 GM in 0.9% Normal Saline (100mL MB+) 100 ML IV (05:09)
[2024-05-19 05:13] LABS: Absolute Lymphocyte Count 1.22 X10^3/uL (0.83-4.51); Absolute Neutrophil Count 11.2 X10^3/uL (2.0-7.7); Basophil% 0.7 % (0-1); Eosinophil# 0.17 X10^3/uL; Eosinophils% 1.2 % (0-5); Hematocrit 37.9 % (37-47); Hemoglobin 11.7 g/dL (12.0-15.0); Lymphocyte # 1.22 X10^3/ul (0.83-4.51); Lymphocyte % 8.8 % (19-41); Mean Corp Hgb Conc 30.9 g/dL (32-36); Mean Corpuscular Hgb 25.1 pg (27.0-32.0); Mean Corpuscular Volume 81.2 fL (81-99); Monocyte# 1.02 X10^3/uL; Monocyte% 7.3 % (0-10); NRBC Flagged by Analyzer 0 % (0-5); Neutrophil # 11.19 X10^3/uL (2.7-7.7); Neutrophil % 80.6 % (47-70); POSITIVE COUNT YES; POSITIVE MORPHOLOGY YES; Platelet Count 65 K/mm3 (150-450); RBC Distribution Width CV 22.2 % (11.6-14.6); RBC Distribution Width SD 63.9 fl (35.1-43.9); Red Blood Count 4.67 M/mm3 (4.2-5.4); White Blood Count 13.9 K/mm3 (4.4-11.0)
[2024-05-19 05:15] LABS: Differential Indicated SCAN CRITERIA MET
[2024-05-19 05:32] LABS: Anion Gap 4 (5-15); BUN 10 mg/dL (7-18); BUN/Creat Ratio 14.2 RATIO (10-20); Calcium,Total 8.1 mg/dL (8.5-10.1); Chloride 101 mmol/L (98-107); EST Glomerular Filtration Rate 86 mL/min (>60); Est Glom Filt Rate - Afr Amer 104 mL/min (>60); Glucose 99 mg/dL (74-106); Potassium 3.3 mmol/L (3.5-5.1); Sodium Level 136 mmol/L (136-145)
[2024-05-19 06:25] LABS: Anisocytosis 1+; Platelet Estimate MOD DEC (ADEQ)
--- NOTE | 2024-05-19 06:59 | NURSING ---
24G IV placed in pt wrist in [employer] yesterday. IV infiltrated and pt refused to have another inserted. notified. Emily Zaldivar RN
[2024-05-19 07:46] LABS: Magnesium 1.8 mg/dL (1.6-2.6)
--- NOTE | 2024-05-19 10:15 | PN.HOSP_ITS ---
Reason for Visit Reason for Visit: Diagnoses Sepsis, unspecified organism (05/04/24) Acute embolism and thrombosis of tibial vein, bilateral (05/04/24) Pneumonia, unspecified organism (05/04/24) Respiratory failure, unspecified, unspecified whether with hypoxia or hypercapnia (05/04/24) Acute kidney failure, unspecified (05/04/24) Chronic kidney disease, unspecified (05/04/24) Severe sepsis with septic shock (05/04/24) Objective Data Objective Data Vital Signs: Vital Signs Temp Pulse Resp BP Pulse Ox O2 Del Method O2 Flow Rate 98.2 F 85 20 H 126/67 H 93 Nasal Cannula 4 05/19/24 10:07 05/19/24 10:07 05/19/24 10:07 05/19/24 10:07 05/19/24 10:07 05/19/24 10:07 05/19/24 10:07 FiO2 35 05/14/24 03:25 Oxygen Flow Rate (L/min) 4 Oxygen Delivery Method Nasal Cannula Weight: 213 lb 10.047 oz Body Mass Index (BMI) 35.6 Intake & Output: Intake and Output for Last 24 Hours 05/17/24 05/18/24 05/19/24 23:59 23:59 23:59 Intake Total 1760 / 1760 760 / 760 243.3 / 243.3 Balance 1760 / 1760 760 / 760 243.3 / 243.3 Lab / Micro Data 05/19/24 04:00 05/19/24 04:00 Labs: Laboratory Results - last 24 hr 05/19/24 04:00: WBC 13.9 H, RBC 4.67, Hgb 11.7 L, Hct 37.9, MCV 81.2, MCH 25.1 L , MCHC 30.9 L, RDW Std Deviation 63.9 H, RDW Coeff of Joya 22.2 H, Plt Count 65 L , MPV TNP, Immature Gran % (Auto) 1.400 H, Neut % (Auto) 80.6 H, Lymph % (Auto) 8.8 L, [place] % (Auto) 7.3, Eos % (Auto) 1.2, Baso % (Auto) 0.7, Absolute Neuts (auto) 11.2 H, Absolute Lymphs (auto) 1.22, Nucleated RBC % 0, Platelet Estimate MOD DEC, Anisocytosis 1+, Sodium 136, Potassium 3.3 L, Chloride 101, Carbon Dioxide 31.0, Anion Gap 4 L, BUN 10, Creatinine 0.70, Estim Creat Clear Calc 67.60, Est GFR (MDRD) Af Amer 104, Est GFR (MDRD) Non-Af 86, BUN/Creatinine Ratio 14.2, Glucose 99, Calcium 8.1 L, Magnesium 1.8 Micro: Microbiology 05/08/24 09:45 Sputum, Expectorated/Coughed Gram Stain - Final 05/08/24 09:45 Sputum, Expectorated/Coughed Respiratory Culture - Final Presumptive C albicans 05/07/24 01:05 Sputum, Expectorated/Coughed Gram Stain - Final 05/07/24 01:05 Sputum, Expectorated/Coughed Respiratory Culture - Final Ericka albicans 05/06/24 21:36 Urine, Random Urine Culture - Final Presumptive E. coli 05/04/24 11:15 Blood Culture (Wb) - Anticubital Left Bacteria Detection (PCR) - Final Streptococcus pneumo 05/04/24 11:15 Blood Culture (Wb) - Anticubital Left Blood Culture - Final Streptococcus pneumoniae 05/05/24 18:15 Urine, Catheterized Urine Culture - Final ESBL Escherichia coli 05/07/24 07:27 Stool Enteric Bacteriology - Final 05/05/24 17:26 Mucosa - Nose Respiratory Panel (PCR) - Final 05/05/24 17:30 Nasal Secretion MRSA (PCR) - Final 05/05/24 18:15 Urine, Clean Catch Legionella Antigen - Final 05/05/24 18:15 Urine, Clean Catch Streptococcus pneumoniae Antigen (M - Final Streptococcus pneumonia Ag 05/04/24 11:45 Mucosa - Nose SARS-CoV-2, Influenza & RSV (PCR) - Final Radiography Diagnostic Testing: Radiology Impression Venous Doppler Study 05/17/24 17:16 Interpretation Summary Acute deep vein thrombosis is noted in the right posterior tibial vein, soleus. Acute deep vein thrombosis is noted in the left common femoral vein, profunda femoral vein, popliteal vein, posterior tibial vein, peroneal vein, soleus vein. Acute superficial vein thrombosis is noted in the right accessory saphenous vein. Ordering Physician: Angel Kraus Referring Physician: Frank Salinas Performed By: Taina Zuleta, RVT Physical Exam Narrative Seen and examined. Patient both lower extremities are swollen left more than right from DVT and edema. Patient does not have satisfactory ambulation, balance and equilibrium due to leg swelling and pain. Patient not tolerable to tolerate oral coagulant due to severe thrombocytopenia and mucosal bleed. Patient has been here since 05/04/2024. Still has intermittent mucosal bleeding like epistaxis oral and vaginal bleeding from thrombocytopenia sometimes in 3 to 4 days Physical exam General: Alert, Oriented x3, Cooperative HEENT: Atraumatic, PERRLA, EOMI, Normocephalic Oral: Epistaxis/oral mucosal bleed about 4 days ago Neck: Supple, No JVD, Negative Carotid Bruits Chest wall/Lungs: Air entry diminished in bilateral lungs. No crepitations. On 4 L of oxygen at rest increased to 6 L on mild exertion/walking. Cardiovascular: Sinus rhythm, Normal S1, Normal S2, No M/G/R Abdomen: Bowel Sounds Present, Soft, Non Tender, Non-Distended : No dysuria. No renal angle tenderness. No suprapubic tenderness. Vaginal bleed about 4 days ago Extremities: Bilateral lower extremity edema and LUE edematous, Capillary Refill Less than 3 Seconds Skin: Left lower leg mildly tender and red from DVT. Musculoskeletal: No Tenderness to Palpation of Joints or Extremities Neurological: Cranial nerves II-XII grossly intact, DTR 2+/4. No acute focal neurological deficit. Psych/Mental Status: Flat affect. Assessment & Plan Assessment/Plan (1) Sepsis: (2) Respiratory failure: (3) Acute kidney injury superimposed on chronic kidney disease: PLAN: Plan Patient is a 78-year-old female sent from PCPs office with progressive generalized weakness and shortness of breath and assessment of sepsis secondary to pneumonia was made admitted to a monitored bed for further management 1. Sepsis ? Secondary to pneumonia with streptococcal pneumonia with bacteremia as well as acute cystitis ? 05/13/2024; patient WBC count trending in the right direction. Case was discussed with Dr. Blanco regarding antibiotic therapy. ? 05/16/2024; patient scheduled to complete antibiotic therapy as of today 05/17: Patient was seen by ID. Patient had repeat CT chest with IV contrast. Shows residual dense consolidation in the left upper lobe with patchy infiltrate in right lower lobe and a small right pleural effusion. Mild findings in the left lower lobe. PE in right interlobar pulmonary artery. Leukocytosis improving. On meropenem. 05/19: Discussed with ID. No further need of IV antibiotic. Patient lost IV line since has IV line for more than 2 weeks 2. Pneumonia - secondary to streptococcal pneumonia, Blood and sputum cultures sent. Patient placed on Rocephin and Zithromax switched to vancomycin and Zosyn. Blood cultures and urine antigen both positive for streptococcal pneumonia ? 05/11/2024; Zosyn and vancomycin discontinued the day prior patient placed on meropenem in view of her ESBL E. coli ? 05/12/2024 patient WBC count trending down ? 05/15/2024; WBC count at 20K. Plan is to discontinue meropenem on 05/16/2024 ? 05/16/2024; patient did complain of hemoptysis 05/18: Leukocytosis improving 13.7 thousand. ID saw the patient on day 07/06 and continued the meropenem 05/19: No significant improvement in leukocytosis since yesterday but overall has decreased from 41,000. 3. Acute cystitis with ESBL E. coli ?Zosyn discontinued started on meropenem 05/19. Completed IV meropenem. 4. Lung mass, ?CT chest showed a left hilar mass and left-sided mediastinal lymphadenopathy with narrowing of the left upper lobe bronchus causing collapse of the left upper lobe and lingula segment of the left lower lobe with mild loss versus consolidation in the posterior medial segment of the right lower lobe and shift of the heart and mediastinal structures towards the left of the midline. Consult was placed to pulmonary medicine 05/17: Left hilar mass and adenopathy on CT scan possible postobstructive pneumonia on meropenem. 5. Acute hypoxic respiratory failure due to pneumonia and left hilar mass with collapse of the left upper lobe ? Patient was initially managed on noninvasive ventilation with BiPAP has since been weaned off to nasal cannula 05/19: On 4 L of oxygen 24/7 goes to 6 L on mild exertion. On BiPAP at night 6. Chronic congestive heart failure with preserved ejection fraction ? Echo demonstrated EF of 65% 7.Acute kidney injury ? Superimposed on chronic kidney disease stage IIIa. Monitoring with daily BMPs kidney function improving 8. Bilateral lower extremity swelling due to DVT ? Venous duplex obtained did show bilateral infrapopliteal DVT in the superficial cephalic DVT to the right upper extremity. Patient currently not a candidate for anticoagulation given her severe thrombocytopenia 05/17: Vascular surgery requested. Discussed with Dr. Roche. Patient has bilateral DVT, right upper extremity DVT and chronic left femoral DVT. Evaluation for IVC filter 05/18: Repeat venous duplex shows acute bilateral infrapopliteal DVT similar to the previous report. LUE superficial venous thrombosis in left cephalic vein and medial cubital vein. Patient had IVC filter today. Discussed that once her platelet count is stable in future, may be outpatient antithrombotics, low-dose can be considered 05/19: Discussed with the patient in the presence of patient's RN, Dari. Follow with PCP within 1 week. Need daily CBC with monitoring of platelet and if platelet count remains satisfactorily above 60-70,000 without further oral, mucosal or vaginal bleed, can consider low-dose Eliquis 2.5 mg twice daily. Follow-up with territory account representative in 1 to [address] Babatunde Kim. 9. Paroxysmal A-fib with RVR ? Patient was managed with amiodarone did develop bradycardia amiodarone subsequently discontinued. Patient not a candidate for systemic anticoagulation given her severe thrombocytopenia 10. Elevated troponin ? Secondary to demand ischemia patient presentation not consistent with acute coronary syndrome 11. Chronic thrombocytopenia patient treated with avatrombopag 20 mg daily. Subsequently monitoring with daily CBC with differential ? 05/11/2024; consult placed to Dr. Kim patient's oncologist per her request ? 05/12/2024 did explain to patient about Dr. Kim not taking consult in the hospital patient will follow-up with Dr. Kim as outpatient. Platelet count up to 23K ? 05/13/2024; platelet count up to 30K. ? 05/15/2024 platelet count up to 40K 05/16/2020 complains of hemoptysis as well as bleeding from the tongue and gram with brushing of the teeth this a.m. Her platelet count continues to improve, currently up to 53K. 05/17: Platelet count 56,000. I would not start antithrombotic therapy patient having intermittent thrombocytopenic bleeding without being on antiplatelet or anticoagulant agent. 05/18 platelet count 53 K 05/19: Platelet count 65,000. 12. Abnormal vaginal bleeding Patient did develop bleeding for vagina the day prior. Ordered transvaginal ultrasound which demonstrated Fibroid uterus consistent with prior CT findings. Abnormal endometrium, hyperplasia versus neoplasia with possible polyp. Plan is for patient to follow-up with [facility] as outpatient and recommended biopsy once platelet count is stable. Charges/Coding Visit Charges Inpatient E&M: 78898 Subs Hosp L2
[2024-05-19] MEDS: Lactobacillis Acidophilus 1 CAP PO ×2 (10:39→21:25)
[2024-05-19] MEDS: Spironolactone 25 MG Tablet PO (10:39)
[2024-05-19] MEDS: [UNRECOGNIZED DRUG - OTHER] PO (10:40)
[2024-05-19] MEDS: NYSTATIN 500,000 UNIT/5 ML UDC 500000 UNIT PO ×4 (10:42→21:25)
[2024-05-19] MEDS: Magnesium Chloride 64 MG Delay Rel.Tablet 128 MG PO ×2 (10:42→21:26)
[2024-05-19] MEDS: guaiFENesin 10 ML UDC (200MG/10ML) PO ×4 (10:42→21:25)
--- NOTE | 2024-05-19 11:26 | CASEMGMT ---
[facility] TCU can take patient and pre-cert is pending. Maris notified SW that insurance would like a progress note from today and a PT note from today. CARMEN notified PT and physician. Estefania JIANG
[2024-05-19] MEDS: Furosemide 40 MG Tablet PO ×2 (12:22→17:38)
--- NOTE | 2024-05-19 13:55 | PCM.PN.ID ---
Physical Exam Narrative Feeling much better, breathing and strength improved, no fever Const alert and no apparent distress General Appearance: cooperative Resp normal air movement and clear to auscultation bilaterally Cardio regular rate and regular rhythm GI soft to palpation, non-tender and non-distended Skin no rashes or lesions noted ID ID: Route of nutrition/ use of supplements: [] Nutritional Intake: [] IV Site: [] Ordonez Catheter: [] Assessment & Plan Assessment/Plan (1) Sepsis: PLAN: Bacteremia with strep pneumo. S pneumo UAg (+). L hilar mass and adenopathy seen on CT. Changed to meropenem 05/10/24. Ucx with small growth ESBL ecoli 05/05 but repeat 05/06 was neg. Denies any urinary symptoms. Wbc improving over past few days. Repeat CT shows improvement, will stop abx today. Will follow prn (2) Acute kidney injury superimposed on chronic kidney disease: (3) Pneumonia:
--- NOTE | 2024-05-19 15:22 | CASEMGMT ---
SW met with patient. Introduced self and role at [facility]. SW let patient know that TCU is able to take her, however her insurance has to approve her. SW did explain that it is possible her insurance may deny her going to a [facility] facility as they may not feel she meets SNF level of care. Patient asked about private paying. SW told patient private pay costs for TCU and local SNF's. Discussed home health. SW told patient as soon as CARMEN has an answer. Plan: Possibly TCU pending insurance approval. There is a possibility patient may get denied. Estefania Morales WILDLIFE REMOVAL SPECIALIST DEIDRE
--- NOTE | 2024-05-19 16:05 | CHAPLAIN ---
Type of Pastoral Visit _x__ Initial Visit ___ Follow-up Visit ___ On-call Visit ___ General Patient Visit ___ Spiritual Assessment ___ Family Conference ___ Bereavement ___ Rapid Response ___ Code Blue ___ Other (describe below) Pastoral Care Referral From _x__ Patient ___ Family ___ Nurse ___ Physician ___ Business Analyst Ecommerce ___ Stamp Pad Maker ___ Other (describe below) Sacrament/Intervention _x__ Active listening ___ Anointing ___ Quaker ___ Bereavement ___ Communion _x__ Geeta exploration ___ _x__ Life review _x__ Prayer ___ Reconciliation ___ Sacrament of Sick _x__ Supportive presence ___ Wedding ___ Other (describe below) Pastoral Comments patient welcoming and talkative about her life, health, and current situation of family; pt is hoping to go to [facility] if approved; pt is raising grandchildren in her home and states a concern is for more time and energy; spouse is helpful at home and with the grandchildren; pt was given time to listen and hear her feelings; prayer and presence were welcomed
[2024-05-19] MEDS: Albuterol 2.5 MG/3 ML VIAL.NEB. INHALATION (23:05)
[2024-05-20] VITALS (8 sets, daily range): BP systolic 121–131; BP diastolic 70–74; PULSE 80–88; RESP 18–20; TEMP 36.5–36.8; O2SAT 87–95; BMI 35.6
[2024-05-20] MEDS: Ipratropium/Albuterol Sulfate 3 ML AMPUL.NEB INHALATION ×2 (07:15→13:28)
[2024-05-20 08:34] LABS: Absolute Lymphocyte Count 1.01 X10^3/uL (0.83-4.51); Absolute Neutrophil Count 9.3 X10^3/uL (2.0-7.7); Basophil# 0.11 X10^3/uL; Basophil% 0.9 % (0-1); Eosinophil# 0.29 X10^3/uL; Eosinophils% 2.4 % (0-5); Hematocrit 37.2 % (37-47); Hemoglobin 11.4 g/dL (12.0-15.0); Lymphocyte # 1.01 X10^3/ul (0.83-4.51); Lymphocyte % 8.5 % (19-41); Mean Corp Hgb Conc 30.6 g/dL (32-36); Mean Corpuscular Hgb 24.6 pg (27.0-32.0); Mean Corpuscular Volume 80.2 fL (81-99); Monocyte# 1.01 X10^3/uL; Monocyte% 8.5 % (0-10); NRBC Flagged by Analyzer 0 % (0-5); Neutrophil # 9.31 X10^3/uL (2.7-7.7); Neutrophil % 78.1 % (47-70); POSITIVE COUNT YES; POSITIVE MORPHOLOGY YES; Platelet Count 82 K/mm3 (150-450); RBC Distribution Width SD 62.2 fl (35.1-43.9); Red Blood Count 4.64 M/mm3 (4.2-5.4); White Blood Count 11.9 K/mm3 (4.4-11.0)
[2024-05-20 08:48] LABS: Differential Indicated SCAN CRITERIA MET
[2024-05-20 09:24] LABS: Anion Gap 4 (5-15); BUN 10 mg/dL (7-18); Calcium,Total 8.3 mg/dL (8.5-10.1); Chloride 101 mmol/L (98-107); Creatinine, Serum 0.77 mg/dL (0.55-1.02); EST Glomerular Filtration Rate 77 mL/min (>60); Est Glom Filt Rate - Afr Amer 94 mL/min (>60); Glucose 109 mg/dL (74-106); Potassium 3.4 mmol/L (3.5-5.1); Sodium Level 137 mmol/L (136-145)
[2024-05-20] MEDS: [UNRECOGNIZED DRUG - OTHER] PO (09:28)
[2024-05-20] MEDS: Spironolactone 25 MG Tablet PO (09:28)
[2024-05-20] MEDS: Lactobacillis Acidophilus 1 CAP PO (09:28)
[2024-05-20] MEDS: NYSTATIN 500,000 UNIT/5 ML UDC 500000 UNIT PO ×2 (09:29→13:26)
[2024-05-20] MEDS: Acyclovir 5% Tube 1 APPLIC TOPICAL ×2 (09:29→13:26)
[2024-05-20] MEDS: Furosemide 40 MG Tablet PO (09:29)
[2024-05-20] MEDS: Magnesium Chloride 64 MG Delay Rel.Tablet 128 MG PO (09:29)
[2024-05-20] MEDS: guaiFENesin 10 ML UDC (200MG/10ML) PO ×2 (09:33→13:26)
--- NOTE | 2024-05-20 09:49 | CASEMGMT ---
Insurance is intending to deny patient's request for SNF stay. They are requesting a peer to peer. SW called insurance to schedule the peer to peer. SW left a voice mail with SW's name, number, title, and where calling from, patient's name, , and [employer] ID, Physician's name, Professional designation, phone number, and three different times to call physician. Estefania Morales STATISTICAL ANALYST DEIDRE
[2024-05-20 10:16] LABS: Ovalocyte 1+; Platelet Estimate MOD DEC (ADEQ)
[2024-05-20 10:17] LABS: Anisocytosis 1+; Macrocytosis 1+
--- NOTE | 2024-05-20 13:22 | CASEMGMT ---
Patient was denied for SNF level of care. Estefania Morales BUDGET DIRECTOR DEIDRE
--- NOTE | 2024-05-20 14:38 | PCM.DC ---
Discharge Instructions Diet Discharge Diet: Low fat / Low cholesterol and 2000 mg Sodium Diet Activity Discharge Activity: Return to Normal Activity Weight Bearing Status: Weight bearing as tolerated Dressing / Incision Call your doctor if you observe: Fever of 101 or Higher, Coldness, Increased Pain, Numbness or Tingling, Change in Color, Inability to urinate, Inability to have a bowel movement, Shortness of breath, Dizziness, Fainting spells, Swelling in the ankles, Chest pain, Prolonged hiccupping, Increased palpitations (irregular heartbeat) and Calf discomfort Follow Up Care When: IN 2 WEEKS Test Results: Test results from this visit will be discussed in further detail at your follow-up appointment, if applicable. Discharge Plan Admission Admit Date/Time: 05/04/24 14:42 Primary Reason for Your Visit: Bilateral DVT, thrombocytopenia, IVC filter. Multilobar pneumonia CEASAR reso Attending Provider: Reuben Hogan Primary Care Provider: Frank Salinas Consulting Providers: Bre Covarrubias; Es Ahn; Saji Shah; James Kwong; Ag Ricks; Kimberly Parker; Lino Neal; Royce Tong; Roman Uribe; Babatunde Kim; Reuben Hogan; Damian Jurado; Angel Kraus Instructions Additional Instructions / Restrictions: Advise CBC with differential, BMP in 3 days and follow with PCP Discharge Orders/Prescriptions Prescriptions: New magnesium chloride [Mag 64] 64 mg Tablet,Delayed Release (Dr/Ec) 128 mg PO BID 7 Days Qty: 28 0RF furosemide 40 mg Tablet 40 mg PO BIDCM 30 Days Qty: 60 0RF Rx Instructions: Advised to change furosemide 40 mg to once daily after 1 week guaifenesin 100 mg/5 mL Liquid 10 mg PO Q4H 7 Days Qty: 21 0RF L.acidoph,saliva-B.bif-S.therm 175 mg Capsule 1 cap PO BID Qty: 0 0RF Rx Instructions: Bxgn-all-mtzxuup. Take it for 1 week ipratropium-albuterol 0.5 mg-3 mg(2.5 mg base)/3 mL Solution For Nebulization 3 ml inhalation Q6HWA.RT PRN (Reason: sob) 30 Days Qty: 90 0RF sennosides-docusate sodium [Stimulant Laxative Plus] 8.6-50 mg Tablet 2 tab PO BID Qty: 0 0RF Rx Instructions: Frwd-baq-qoyevix. Deep Sea Nasal 0.65 % Aerosol,Normanna 2 spray NASAL TID PRN PRN (Reason: NASAL DRYNESS) Qty: 0 0RF Rx Instructions: Afur-trp-kwvnxri spironolactone 25 mg Tablet 25 mg PO DAILY 30 Days Qty: 30 0RF Continued cholecalciferol (vitamin D3) [Vitamin D3] 50 mcg (2,000 unit) capsule 50 mcg PO DAILY avatrombopag 20 mg tablet 20 mg PO DAILY fluticasone propionate 50 mcg/actuation spray,suspension 2 spray INTRANASAL DAILY lactobacillus combination no.4 3 billion cell capsule 3,000 mmu cells PO DAILY Rx Instructions: administer with a meal Discontinued spironolactone 25 mg tablet 12.5 mg PO DAILY Referrals / Follow Up: Angel Kraus MD [Med Staff - Active Staff] - Within 1 Month Frank Salinas MD [Primary Care Provider] - Within 1 Week (Follow-up in 3 days with repeat CBC differential and BMP in 3 days) Babatunde Kim DO [Med Staff - Active Staff] - Within 1 Week Disposition Disposition (needs filled in before D/C Order can be placed): Home Health Service
--- NOTE | 2024-05-20 15:13 | CASEMGMT ---
Patient has order for discharge. Patient will need home oxygen at discharge. FLORES PERALES into discuss needs at discharge. FLORES PERALES updated patient that her insurance denied precert to TCU. Patient states she will discharge to home and would like HHC with [facility]. Patient [place] [facility] [place]. Patient denies further needs at discharge. Patient had no further questions. FLORES PERALES updated hospitalist, script received for home oxygen and nebulizer. FLORES PERALES made referral for [facility] awaiting acceptance. FLORES PERALES sent [place] [facility] [place] [facility] and arranged for portable oxygen to be delivered to room. FLORES PERALES updated discharge plan.
--- NOTE | 2024-05-20 15:36 | PHA.DC_ITS ---
Pharmacy [facility] Pharm[facility] Service has performed discharge medication reconciliation and counseling for this patient. The patient's discharge medication list was reviewed for discrepancies and discrepancies were resolved. The patient was counseled on the following discharge medications and changes in medications for homegoing were reviewed. The Reason for Use, instructions for use, and potential side effects were reviewed for all new medications. The patient's questions regarding all of their medications were answered. 1. Nasal spray 2. Furosemide 40 mg PO BID with meals 3. Guaifenesin Q4H 4. Duoneb Q6H PRN 5. Pro biotic 6. Magnesium chloride 128 mg PO BID 7. Titi/docusate 2 tablets PO BID 8. Spironolactone 25 mg PO daily The patient was able to verbally demonstrate an understanding of their discharge medications. The patient was counselled on new medications by pharmacy buyer Korey. Medications at Discharge Home Medications cholecalciferol (vitamin D3) 50 mcg (2,000 unit) capsule (Vitamin D3) 50 mcg PO DAILY vitamin 08/06/23 avatrombopag 20 mg tablet 20 mg PO DAILY thrombocytapenia 05/04/24 fluticasone propionate 50 mcg/actuation nasal spray,suspension 2 spray intranasal DAILY breathing 05/04/24 lactobacillus combination no.4 3 billion cell capsule 3,000 mmu cells PO DAILY supplement 05/04/24 L.acidophil,salivari-Bifido bifidum-Strep thermoph 175 mg capsule 1 cap PO BID #0 caps 05/20/24 furosemide 40 mg tablet 40 mg PO BIDCM 30 days #60 tabs 05/20/24 guaifenesin 100 mg/5 mL oral liquid 10 mg (0.5 mL) PO Q4H 1 week #21 mL 05/20/24 ipratropium 0.5 mg-albuterol 3 mg (2.5 mg base)/3 mL nebulization soln 3 ml inhalation Q6HWA.RT PRN sob 1 month #90 mL 05/20/24 magnesium chloride 64 mg (magnesium chloride) tablet,delayed release (Mag 64) 128 mg (2 x 64 mg) PO BID 7 days #28 tabs 05/20/24 sennosides 8.6 mg-docusate sodium 50 mg tablet (Stimulant Laxative Plus) 2 tab PO BID #0 tabs 05/20/24 sodium chloride 0.65 % nasal spray aerosol (Deep Sea Nasal) 2 spray NASAL TID PRN PRN NASAL DRYNESS #0 mL 05/20/24 spironolactone 25 mg tablet 25 mg PO DAILY 30 days #30 tabs 05/20/24
--- NOTE | 2024-05-20 15:53 | PCM.DC.SUM ---
Providers Date of Admission: 05/04/24 Date of Discharge: 05/20/24 Primary Care Physician: Dr. Frank Salinas MD Consultations 05/04/24 15:19 Consult: Inserter Operator / Pulmonary Medicine Routine Consulting Provider: Intensivists/Pulmonary Med Reason for Consult: acute hypoxic resp failure 2/2 PNA EMERGENT Consult: No MD Notified: Yes Date Notified: 05/04/24 Time Notified: 15:06 Method of Notification: Text 05/05/24 09:11 Consult: Infectious Disease Routine Consulting Provider: Saji Shah Reason for Consult: Sepsis 2/2 Pneumococcal PNA with bacteremia EMERGENT Consult: No MD Notified: Yes Date Notified: 05/05/24 Time Notified: 09:11 Method of Notification: Text 05/08/24 10:14 Consult: Oncology/Hematology Routine Consulting Provider: RICH Hem/Onc Jonathon Reason for Consult: SEVERE thrombocytopenia. Leukocytosis EMERGENT Consult: No MD Notified: Yes Date Notified: 05/08/24 Time Notified: 10:14 Method of Notification: Verbal 05/17/24 15:25 Consult: Vascular Surgery Routine Consulting Provider: Angel Kraus Reason for Consult: B/L DVT, RUE DVT, thrombocytopenia, mucosal bleeding EMERGENT Consult: No MD Notified: Yes Date Notified: 05/17/24 Time Notified: 15:25 Method of Notification: Verbal Reason For Visit: PNEUMONIA, SEPTIC SHOCK Diagnosis Discharge Diagnosis (1) Sepsis: Status: Acute Code(s): A41.9 - Sepsis, unspecified organism (2) Acute kidney injury superimposed on chronic kidney disease: Status: Chronic Code(s): N17.9 - Acute kidney failure, unspecified; N18.9 - Chronic kidney disease, unspecified (3) Pneumonia: Status: Acute Code(s): J18.9 - Pneumonia, unspecified organism Plan Patient is a 78-year-old female sent from PCPs office with progressive generalized weakness and shortness of breath and assessment of sepsis secondary to pneumonia was made admitted to a monitored bed for further management 1. Sepsis ? Secondary to pneumonia with streptococcal pneumonia with bacteremia as well as acute cystitis ? 05/13/2024; patient WBC count trending in the right direction. Case was discussed with Dr. Blanco regarding antibiotic therapy. ? 05/16/2024; patient scheduled to complete antibiotic therapy as of today 05/17: Patient was seen by ID. Patient had repeat CT chest with IV contrast. Shows residual dense consolidation in the left upper lobe with patchy infiltrate in right lower lobe and a small right pleural effusion. Mild findings in the left lower lobe. PE in right interlobar pulmonary artery. Leukocytosis improving. On meropenem. 05/19: Discussed with ID. No further need of IV antibiotic. Patient lost IV line since has IV line for more than 2 weeks 05/20: No acute issues. Sepsis has resolved. 2. Pneumonia - secondary to streptococcal pneumonia, Blood and sputum cultures sent. Patient placed on Rocephin and Zithromax switched to vancomycin and Zosyn. Blood cultures and urine antigen both positive for streptococcal pneumonia ? 05/11/2024; Zosyn and vancomycin discontinued the day prior patient placed on meropenem in view of her ESBL E. coli ? 05/12/2024 patient WBC count trending down ? 05/15/2024; WBC count at 20K. Plan is to discontinue meropenem on 05/16/2024 ? 05/16/2024; patient did complain of hemoptysis 05/18: Leukocytosis improving 13.7 thousand. ID saw the patient on day 1 and continued the meropenem 05/19: No significant improvement in leukocytosis since yesterday but overall has decreased from 41,000. 05/20: Patient advised to continue incentive spirometry and PEP for 1 week. Follow with PCP in 2 to 3 days. 3. Acute cystitis with ESBL E. coli ?Zosyn discontinued started on meropenem 05/19. Completed IV meropenem. 4. Lung mass, ?CT chest showed a left hilar mass and left-sided mediastinal lymphadenopathy with narrowing of the left upper lobe bronchus causing collapse of the left upper lobe and lingula segment of the left lower lobe with mild loss versus consolidation in the posterior medial segment of the right lower lobe and shift of the heart and mediastinal structures towards the left of the midline. Consult was placed to pulmonary medicine 05/17: Left hilar mass and adenopathy on CT scan possible postobstructive pneumonia on meropenem. 5. Acute hypoxic respiratory failure due to pneumonia and left hilar mass with collapse of the left upper lobe ? Patient was initially managed on noninvasive ventilation with BiPAP has since been weaned off to nasal cannula 05/19: On 4 L of oxygen 24/7 goes to 6 L on mild exertion. On BiPAP at night 05/20: She requires 2 L at rest and required 6 L on ambulation. I have reviewed the oxygen testing, and this patient qualifies for the home equipment and portability. The patient is mobile in the home and the community. The patient requires a nebulizer due to multilobar pneumonia and is prescribed to use DuoNeb with the nebulizer. 6. Chronic congestive heart failure with preserved ejection fraction ? Echo demonstrated EF of 65% 7.Acute kidney injury ? Superimposed on chronic kidney disease stage IIIa. Monitoring with daily BMPs kidney function improving 8. Bilateral lower extremity swelling due to DVT ? Venous duplex obtained did show bilateral infrapopliteal DVT in the superficial cephalic DVT to the right upper extremity. Patient currently not a candidate for anticoagulation given her severe thrombocytopenia 05/17: Vascular surgery requested. Discussed with Dr. Roche. Patient has bilateral DVT, right upper extremity DVT and chronic left femoral DVT. Evaluation for IVC filter 05/18: Repeat venous duplex shows acute bilateral infrapopliteal DVT similar to the previous report. LUE superficial venous thrombosis in left cephalic vein and medial cubital vein. Patient had IVC filter today. Discussed that once her platelet count is stable in future, may be outpatient antithrombotics, low-dose can be considered 05/19: Discussed with the patient in the presence of patient's RN, Dari. Need daily CBC with monitoring of platelet and if platelet count remains satisfactorily above 60-70,000 without further oral, mucosal or vaginal bleed, can consider low-dose Eliquis 2.5 mg twice daily. Follow-up with solution architect in 1 to [address] Babatunde Kim. 05/20: Discussed with the patient . Will need follow-up with PCP in 2 to 3 days and repeat CBC in 2 to 3 days. Rest as mentioned above. 9. Paroxysmal A-fib with RVR ? Patient was managed with amiodarone did develop bradycardia amiodarone subsequently discontinued. Patient not a candidate for systemic anticoagulation given her severe thrombocytopenia 10. Elevated troponin ? Secondary to demand ischemia patient presentation not consistent with acute coronary syndrome 11. Chronic thrombocytopenia patient treated with avatrombopag 20 mg daily. Subsequently monitoring with daily CBC with differential ? 05/11/2024; consult placed to Dr. Kim patient's oncologist per her request ? 05/12/2024 did explain to patient about Dr. Kim not taking consult in the hospital patient will follow-up with Dr. Kim as outpatient. Platelet count up to 23K ? 05/13/2024; platelet count up to 30K. ? 05/15/2024 platelet count up to 40K 05/16/2020 complains of hemoptysis as well as bleeding from the tongue and gram with brushing of the teeth this a.m. Her platelet count continues to improve, currently up to 53K. 05/17: Platelet count 56,000. I would not start antithrombotic therapy patient having intermittent thrombocytopenic bleeding without being on antiplatelet or anticoagulant agent. 05/18 platelet count 53 K 05/19: Platelet count 65,000. 12. Abnormal vaginal bleeding Patient did develop bleeding for vagina the day prior. Ordered transvaginal ultrasound which demonstrated Fibroid uterus consistent with prior CT findings. Abnormal endometrium, hyperplasia versus neoplasia with possible polyp. Plan is for patient to follow-up with [facility] as outpatient and recommended biopsy once platelet count is stable. Discharge medication reconciliation done. Discharge follow-up instructions completed. Discharge process discussed with the patient and all questions were answered to patient's satisfaction. Follow with PCP in 1 to 2 weeks Total time spent, exact 35 minutes on discharge meds reconciliation, examination, coordination of care with nurses and ancillary staff, review of imaging and blood test and discussion with the patient on follow-up instructions. Medications at Discharge Home Medications cholecalciferol (vitamin D3) 50 mcg (2,000 unit) capsule (Vitamin D3) 50 mcg PO DAILY vitamin 08/06/23 avatrombopag 20 mg tablet 20 mg PO DAILY thrombocytapenia 05/04/24 fluticasone propionate 50 mcg/actuation nasal spray,suspension 2 spray intranasal DAILY breathing 05/04/24 lactobacillus combination no.4 3 billion cell capsule 3,000 mmu cells PO DAILY supplement 05/04/24 L.acidophil,salivari-Bifido bifidum-Strep thermoph 175 mg capsule 1 cap PO BID #0 caps 05/20/24 furosemide 40 mg tablet 40 mg PO BIDCM 30 days #60 tabs 05/20/24 guaifenesin 100 mg/5 mL oral liquid 10 mg (0.5 mL) PO Q4H 1 week #21 mL 05/20/24 ipratropium 0.5 mg-albuterol 3 mg (2.5 mg base)/3 mL nebulization soln 3 ml inhalation Q6HWA.RT PRN sob 1 month #90 mL 05/20/24 magnesium chloride 64 mg (magnesium chloride) tablet,delayed release (Mag 64) 128 mg (2 x 64 mg) PO BID 7 days #28 tabs 05/20/24 sennosides 8.6 mg-docusate sodium 50 mg tablet (Stimulant Laxative Plus) 2 tab PO BID #0 tabs 05/20/24 sodium chloride 0.65 % nasal spray aerosol (Deep Sea Nasal) 2 spray NASAL TID PRN PRN NASAL DRYNESS #0 mL 05/20/24 spironolactone 25 mg tablet 25 mg PO DAILY 30 days #30 tabs 05/20/24 Physical Exam Narrative Seen and examined. Patient since evidence refused for SNF. I had peer to peer conversation with doctor Viola to appeal for the refusal but it was denied. Ultimately patient has to go to home with home health care. She walked 115 feet. Climbed 13 steps. Therefore SNF was denied Patient both lower extremities are swollen left more than right from DVT and edema. Patient not tolerable to tolerate oral coagulant due to severe thrombocytopenia and mucosal bleed. Patient has been here since 05/04/2024. Physical exam General: Alert, Oriented x3, Cooperative HEENT: Atraumatic, PERRLA, EOMI, Normocephalic Oral: Epistaxis/oral mucosal bleed about 4 days ago Neck: Supple, No JVD, Negative Carotid Bruits Chest wall/Lungs: Air entry diminished in bilateral lungs. No crepitations. On 2 L of oxygen at rest increased to 6 L on mild exertion/walking. Cardiovascular: Sinus rhythm, Normal S1, Normal S2, No M/G/R Abdomen: Bowel Sounds Present, Soft, Non Tender, Non-Distended : No dysuria. No renal angle tenderness. No suprapubic tenderness. Vaginal bleed about 4 days ago Extremities: Bilateral lower extremity edema and LUE edematous, Capillary Refill Less than 3 Seconds Skin: Left lower leg mildly tender and red from DVT. Musculoskeletal: No Tenderness to Palpation of Joints or Extremities Neurological: Cranial nerves II-XII grossly intact, DTR 2+/4. No acute focal neurological deficit. Psych/Mental Status: Flat affect. Weight / BMI Weight Weight: 213 lb 10.047 oz Body Mass Index (BMI) 35.6 ABG / Lab / Microbiology Data 05/20/24 08:27 05/20/24 08:27 Laboratory: Laboratory Results - last 24 hr 05/20/24 08:27: WBC 11.9 H, RBC 4.64, Hgb 11.4 L, Hct 37.2, MCV 80.2 L, MCH 24.6 L, MCHC 30.6 L, RDW Std Deviation 62.2 H, RDW Coeff of Joya 22.0 H, Plt Count 82 L, Immature Gran % (Auto) 1.600 H, Neut % (Auto) 78.1 H, Lymph % (Auto) 8.5 L, [place] % (Auto) 8.5, Eos % (Auto) 2.4, Baso % (Auto) 0.9, Absolute Neuts (auto) 9.3 H, Absolute Lymphs (auto) 1.01, Nucleated RBC % 0, Platelet Estimate MOD DEC, Anisocytosis 1+, Macrocytosis 1+, Ovalocytes 1+, Sodium 137, Potassium 3.4 L, Chloride 101, Carbon Dioxide 32.0, Anion Gap 4 L, BUN 10, Creatinine 0.77, Estim Creat Clear Calc 67.60, Est GFR (MDRD) Af Amer 94, Est GFR (MDRD) Non-Af 77, BUN/Creatinine Ratio 13.0, Glucose 109 H, Calcium 8.3 L Microbiology: Microbiology 05/08/24 09:45 Sputum, Expectorated/Coughed Gram Stain - Final 05/08/24 09:45 Sputum, Expectorated/Coughed Respiratory Culture - Final Presumptive C albicans 05/07/24 01:05 Sputum, Expectorated/Coughed Gram Stain - Final 05/07/24 01:05 Sputum, Expectorated/Coughed Respiratory Culture - Final Ericka albicans 05/06/24 21:36 Urine, Random Urine Culture - Final Presumptive E. coli 05/04/24 11:15 Blood Culture (Wb) - Anticubital Left Bacteria Detection (PCR) - Final Streptococcus pneumo 05/04/24 11:15 Blood Culture (Wb) - Anticubital Left Blood Culture - Final Streptococcus pneumoniae 05/05/24 18:15 Urine, Catheterized Urine Culture - Final ESBL Escherichia coli 05/07/24 07:27 Stool Enteric Bacteriology - Final 05/05/24 17:26 Mucosa - Nose Respiratory Panel (PCR) - Final 05/05/24 17:30 Nasal Secretion MRSA (PCR) - Final 05/05/24 18:15 Urine, Clean Catch Legionella Antigen - Final 05/05/24 18:15 Urine, Clean Catch Streptococcus pneumoniae Antigen (M - Final Streptococcus pneumonia Ag 05/04/24 11:45 Mucosa - Nose SARS-CoV-2, Influenza & RSV (PCR) - Final D/C Instructions Discharge Diet: Low fat / Low cholesterol and 2000 mg Sodium Diet Weight Bearing Status: Weight bearing as tolerated Call your doctor if you observe: Fever of 101 or Higher, Coldness, Increased Pain, Numbness or Tingling, Change in Color, Inability to urinate, Inability to have a bowel movement, Shortness of breath, Dizziness, Fainting spells, Swelling in the ankles, Chest pain, Prolonged hiccupping, Increased palpitations (irregular heartbeat) and Calf discomfort DC O2, CPAP, BIPAP Needs RN Home O2 Qualification: Home O2 Qualification: Is the patient on home oxygen No 05/20/24 10:42 Home O2 Qualification: AT REST 1- Pulse Ox at rest 88 05/20/24 10:42 2- Pulse Ox at rest 93 05/20/24 10:42 2- Oxygen Flow Rate at rest 2 05/20/24 10:42 Home O2 Qualification: WITH AMBULATION 1- Pulse Ox with ambulation 87 05/20/24 10:42 1- Oxygen Flow Rate with 2 05/20/24 10:42 ambulation 2- Pulse Ox with ambulation 88 05/20/24 10:42 2- Oxygen Flow Rate with 4 05/20/24 10:42 ambulation 3- Pulse Ox with ambulation 91 05/20/24 10:42 3- Oxygen Flow Rate with 6 05/20/24 10:42 ambulation PSN CPAP & BiPAP: BiPAP & CPAP Settings per PSN Mode BiPAP 05/14/24 03:25 Bipap Delivery Device Face Mask 05/14/24 03:25 BiPAP Inspiratory Pressure 16 05/14/24 03:25 BiPAP Expiratory Pressure 8 05/14/24 03:25 BiPAP Rate 12 05/14/24 03:25 Fraction of Inspired Oxygen ( 35 05/14/24 03:25 FIO2) Total Flow Rate 50 05/06/24 07:02 Additional Home O2 Discharge instructions: Yes Type of respiratory needs?: Oxygen Oxygen frequency: Continuous Continuous oxygen liters per minute: 2 L/min and With Ambulation Oxygen liters per minute during Ambulation: 6 L/min DC home with Oxygen: Yes Home O2 MD Review: I have reviewed the oxygen testing, and the patient qualifies for home oxygen equipment and portability. The patient is mobile in the home and the community. When: IN 2 WEEKS Meaningful Use Info Meaningful Use Meaningful Use Diagnoses (Choose all that apply): None applicable Ischemic Stroke Statin Dosing Therapy Reference: STATIN DOSE THERAPY REFERENCE: * Patients > 75 years receive moderate or high dose statin therapy. * Patients 75 years or YOUNGER should receive HIGH intensity statin dose unless contraindicated. You will be required to document reason for non-treatment if statin daily dose does not meet guidelines. HIGH DOSE STATIN THERAPY DAILY Atorvastatin > than or = to 40 mg Rosuvastatin > than or = to 20 mg Amlodipine + Atorvastatin > than or = to 2.5/40 mg Ezetimibe + Simvastatin 10/80 mg Simvastatin 80mg Discharge Plan Admission Admit Date/Time: 05/04/24 14:42 Primary Reason for Your Visit: Bilateral DVT, thrombocytopenia, IVC filter. Multilobar pneumonia CEASAR reso Attending Provider: Reuben Hogan Primary Care Provider: Frank Salinas Consulting Providers: Bre Covarrubias; Es Ahn; Saji Shah; James Kwong; Ag Ricks; Kimberly Parker; Lino Neal; Royce Tong; Roman Uribe; Babatunde Kim; Reuben Hogan; Damian Jurado; Angel Kraus Instructions Additional Instructions / Restrictions: Advise CBC with differential, BMP in 3 days and follow with PCP Discharge Orders/Prescriptions Prescriptions: New magnesium chloride [Mag 64] 64 mg Tablet,Delayed Release (Dr/Ec) 128 mg PO BID 7 Days Qty: 28 0RF furosemide 40 mg Tablet 40 mg PO BIDCM 30 Days Qty: 60 0RF Rx Instructions: Advised to change furosemide 40 mg to once daily after 1 week guaifenesin 100 mg/5 mL Liquid 10 mg PO Q4H 7 Days Qty: 21 0RF L.acidoph,saliva-B.bif-S.therm 175 mg Capsule 1 cap PO BID Qty: 0 0RF Rx Instructions: [id number]-[id number]-mmanvng. Take it for 1 week ipratropium-albuterol 0.5 mg-3 mg(2.5 mg base)/3 mL Solution For Nebulization 3 ml inhalation Q6HWA.RT PRN (Reason: sob) 30 Days Qty: 90 0RF sennosides-docusate sodium [Stimulant Laxative Plus] 8.6-50 mg Tablet 2 tab PO BID Qty: 0 0RF Rx Instructions: Qwsp-mou-bhibajd. Deep Sea Nasal 0.65 % Aerosol,[place] 2 spray NASAL TID PRN PRN (Reason: NASAL DRYNESS) Qty: 0 0RF Rx Instructions: Ucyz-kll-byfoqdc spironolactone 25 mg Tablet 25 mg PO DAILY 30 Days Qty: 30 0RF Continued cholecalciferol (vitamin D3) [Vitamin D3] 50 mcg (2,000 unit) capsule 50 mcg PO DAILY avatrombopag 20 mg tablet 20 mg PO DAILY fluticasone propionate 50 mcg/actuation spray,suspension 2 spray INTRANASAL DAILY lactobacillus combination no.4 3 billion cell capsule 3,000 mmu cells PO DAILY Rx Instructions: administer with a meal Discontinued spironolactone 25 mg tablet 12.5 mg PO DAILY Referrals / Follow Up: Angel Kraus MD [Med Staff - Active Staff] - 06/18/24 9:00 am (Appointment is with AURA Liu. Please show up 15 minutes before appointment time with insurance info. ) Frank Salinas MD [Primary Care Provider] - Within 1 Week (Follow-up in 3 days with repeat CBC differential and BMP in 3 days) Babatunde Kim DO [Med Staff - Active Staff] - Within 1 Week (The office will call you with an appointment time, if you do not hear from them in 2-3 business days please give them a call. ) Disposition Disposition (needs filled in before D/C Order can be placed): Home Health Service Charges/Coding Visit Charges Inpatient E&M: 02729 Disch Hosp >30min
--- NOTE | 2024-05-20 16:14 | CASEMGMT ---
FLORES PERALES received call back from [facility] and they are able to accept patient with start of care for tomorrow but patient did not want to answer [facility]'s questions as thing were not confirmed yet. FLORES PERALES in to update patient regarding HHC setup and plan start of care for tomorrow. Patient is upset about discharging this late in the day and FLORES PERALES explained that her oxygen equipment will be delivered to her home this evening. FLORES PERALES encouraged patient to speak with [facility] and answer their questions to ensure that [facility] will be out tomorrow morning for her start of care. FLORES PERALES called Norberto, [employer] Liaison, and requested that patient be informed when home oxygen should be delivered this evening. Per Norberto, the portable E-tank will last for 6 hours at 2lpm. Norberto states he will be over shortly to educate patient regarding oxygen setup and provide portable tank. FLORES PERALES updated patient regarding [employer] Liaison coming to speak with patient.
== END 2024-05-20 17:42 | disposition home health service (06) | DRG 871 ==
LOC: ED 14:09 → ICU 15:11 → PCU 05-06 16:39
PROVIDERS: Internal Medicine; Internal Medicine Critical Care Medicine; Student in an Organized Health Care Education/Training Program; Admitting Provider Internal Medicine; Emergency Provider Emergency Medicine; PCP Family Medicine; Visit Provider Internal Medicine
DX: A40.3 Sepsis due to Streptococcus pneumoniae (principal); J96.01 Acute respiratory failure with hypoxia; I26.99 Other pulmonary embolism without acute cor pulmonale; J13 Pneumonia due to Streptococcus pneumoniae; I82.623 Acute embolism and thrombosis of deep veins of upper extremity, bilateral; I82.612 Acute embolism and thrombosis of superficial veins of left upper extremity; I24.89 Other forms of acute ischemic heart disease; E87.20 Acidosis, unspecified; I13.0 Hypertensive heart and chronic kidney disease with heart failure and stage 1 through stage 4 chronic kidney disease, or unspecified chronic kidney disease; I82.512 Chronic embolism and thrombosis of left femoral vein; I50.32 Chronic diastolic (congestive) heart failure; N17.9 Acute kidney failure, unspecified; J98.19 Other pulmonary collapse; I82.443 Acute embolism and thrombosis of tibial vein, bilateral; N30.00 Acute cystitis without hematuria; D69.6 Thrombocytopenia, unspecified; N18.31 Chronic kidney disease, stage 3a; I48.0 Paroxysmal atrial fibrillation; I12.9 Hypertensive chronic kidney disease with stage 1 through stage 4 chronic kidney disease, or unspecified chronic kidney disease; E78.2 Mixed hyperlipidemia; E80.6 Other disorders of bilirubin metabolism; J98.09 Other diseases of bronchus, not elsewhere classified; I25.10 Atherosclerotic heart disease of native coronary artery without angina pectoris; Z82.3 Family history of stroke; Z86.73 Personal history of transient ischemic attack (TIA), and cerebral infarction without residual deficits; Z11.52 Encounter for screening for COVID-19; R59.1 Generalized enlarged lymph nodes; B96.20 Unspecified Escherichia coli [E. coli] as the cause of diseases classified elsewhere; N84.0 Polyp of corpus uteri; D25.9 Leiomyoma of uterus, unspecified; N93.9 Abnormal uterine and vaginal bleeding, unspecified; Z80.3 Family history of malignant neoplasm of breast; Z79.2 Long term (current) use of antibiotics
CPT/HCPCS: 36415; 36600; 37191; 71045; 71250; 71260; 76830; 76937; 80048; 80053; 80076; 81001; 82803; 83010; 83605; 83615; 83735; 83880; 84100; 84484; 85025; 85027; 85610; 85730; 86880; 86900; 86901; 86965; 87040; 87070; 87077; 87086; 87088; 87149; 87186; 87205; 87449; 87506; 87631; 87633; 87641; 90662; 93005; 93306; 93970; 93971; 94002; 94003; 94640; 94660; 94762; 97110; 97116; 97162; 97166; 97530; 97535; 99152; 99153; 99285; C1880; C1894; J2185; J7030; J7040; P9035; Q9967; A4216; C1769; J0295; J0696; J1940

== ENCOUNTER → 2024-07-07 | Outpatient (CLI) | payer MEDICARE, SELFPAY ==
--- NOTE | 2024-07-07 08:20 | CT_ITS ---
STUDY: CT ABDOMEN AND PELVIS WITHOUT CONTRAST REASON FOR EXAM: Female, 78 years old. Nonspecific mesenteric lymphadenitis, please compare with prior images from 01/04/24. Recent pneumonia in April. RADIATION DOSAGE (If Supplied By Facility): CTDIvol = ( 10.30 ) mGy, DLP = ( 496.42 ) mGycm TECHNIQUE: Transaxial images were obtained from the dome of the diaphragm to the symphysis pubis without oral contrast, and without intravenous contrast. Sagittal and coronal images were reconstructed. Individualized dose optimization techniques were used for this CT. COMPARISON: Comparison is made with prior study dated January 04, 2024. FINDINGS: Right pleural effusion with a finding suggestive of round atelectasis in the right lower lobe. Coronary artery calcification. Normal liver. Normal gallbladder and extrahepatic biliary system. Normal spleen. Normal pancreas. Normal bilateral adrenal glands. Normal right kidney. Normal left kidney. Normal visualized stomach. Normal small intestine. There are multiple colonic diverticula consistent with diverticulosis. The appendix is visualized and appears normal. Normal abdominal aorta. IVC filter is seen. Clinical management recommended according to the specification of the pool finisher of the filter. Normal retroperitoneum. Stable subcentimeters mesenteric lymph nodes. Normal urinary bladder. Calcified fibroid uterus. There is a small umbilical hernia containing fat. There are diffuse degenerative changes of the visualized lumbar spine. CT/Abdomen/Pelvis without Cont IMPRESSION: Stable examination. Electronically Signed: Pedro Mazariegos MD at 14:53 EST ,
== END | disposition home or self-care (01) ==
PROVIDERS: PCP Family Medicine; Referring Provider Family Medicine; Visit Provider Family Medicine
DX: I88.0 Nonspecific mesenteric lymphadenitis (principal)
CPT/HCPCS: 74176

== ENCOUNTER → 2024-09-27 | Outpatient (CLI) | payer MEDICARE, SELFPAY | END | disposition home or self-care (01) | PROVIDERS: PCP Family Medicine; Referring Provider Nurse Practitioner Adult Health; Visit Provider Nurse Practitioner Adult Health | DX: G47.33 Obstructive sleep apnea (adult) (pediatric) (principal); R09.02 Hypoxemia; R63.4 Abnormal weight loss | CPT/HCPCS: 95810; 95811 ==